=== PATIENT | female | born 1940 | race Caucasian/White ===

== ENCOUNTER 2017-01-24 21:32 | Inpatient (IN) | payer OTHER ==
[2017-01-24 21:36] VITALS: BMI 30.7
--- NOTE | 2017-01-24 22:24 | PDOC ---
History of Present Illness - General History Source: Patient, Old Records Exam Limitations: No Limitations - History of Present Illness Initial Comments: 01/24/17 22:58 The patient is a 76 year old female, with a significant past medical history of asthma, hypertension, hyperlipidemia, hypothyroidism, atrial fibrillation, and coronary artery disease s/p cardiac catheterization (2002), s/p CABG (2014), AVR , MVR, s/p MAZE procedure (2016), who presents to the emergency department with diffuse abdominal pain since earlier today. The patient rates her pain as an 8-9 /10 and reports that it is constant in nature. The patient reports that additionally feels nauseous but has not yet vomited. The patient denies fever, chills, cough. The patient denies vomiting, diarrhea, melena/bpr or any dysuria. Allergies: None reported. Past Surgical History: CABG (2014), AVR, MVR, Cardiac Cath (2002), MAZE procedure (2016), Left Lung Thoracentesis (2014), Cholecystectomy, Total Hysterectomy, Bilateral Arthroscopy & Knee Replacement. Social History: Former smoker. Denies alcohol or drug use. PCP: Dr. Luis Fernando Bernal <Ann Bruner - Last Filed: 01/25/17 01:37> <Maldonado Sheridan - Last Filed: 01/25/17 02:15> - General Chief Complaint: Nausea/Vomiting Stated Complaint: NAUSEA/VOMITING Time Seen by Provider: 01/24/17 22:10 Past History <Ann Bruner - Last Filed: 01/25/17 01:37> - Past Medical History Anemia: No Asthma: Yes Cancer: No Cardiac Disorders: Yes (Atrial fibrillation,Cardiac cath (2002), S/P MAZE procedure 1 month ago) CVA: No COPD: No CHF: No Dementia: No Diabetes: No GI Disorders: No Disorders: No HTN: Yes Hypercholesterolemia: Yes Liver Disease: No Seizures: No Thyroid Disease: Yes (Hypothyroidism) - Surgical History Abdominal Surgery: Yes (Total Hysterectomy) Appendectomy: No Cardiac Surgery: Yes (CABG 07/20/15 (double bypass) AVR, MVR, Maze procedure 1 month ago) Cholecystectomy: Yes Lung Surgery: Yes (Throcentesis/Left - 08/23/2015) Neurologic Surgery: No Orthopedic Surgery: Yes (Bilateral arthroscopy and knee replacement) - Psycho/Social/Smoking Cessation Hx Anxiety: Yes Suicidal Ideation: No Smoking History: Never smoked Have you smoked in the past 12 months: No If you are a former smoker, when did you quit?: 50 years ago Hx Alcohol Use: No Drug/Substance Use Hx: No Substance Use Type: Alcohol Hx Substance Use Treatment: No <Arvin,Boris - Last Filed: 01/25/17 02:15> - Past Medical History Allergies/Adverse Reactions: Allergies Allergy/AdvReac Type Severity Reaction Status Date / Time No Known Allergies Allergy Verified 01/24/17 21:36 Home Medications: Ambulatory Orders Albuterol Sulfate [Proair Hfa -] 1 - 2 inh PO PRN PRN 05/28/12 Cholecalciferol (Vitamin D3) [Vitamin D] 1,000 unit PO DAILY 05/28/12 Digoxin [Lanoxin -] 0.125 mg PO DAILY 05/28/12 Furosemide [Lasix -] 40 mg PO DAILY 05/28/12 Levothyroxine [Synthroid -] 175 mcg PO DAILY 05/28/12 Multivits W-Fe,Other Min/Lut [Centrum Silver Ultra Women Tab] 1 each PO DAILY Atorvastatin Calcium [Lipitor] 10 mg PO HS 06/24/13 Ranitidine HCl [Zantac] 150 mg PO BID 06/24/13 Acetaminophen [Tylenol] 650 mg PO PRN PRN 08/19/15 Aspirin [ASA -] 81 mg PO DAILY 08/19/15 Beclomethasone Dipropionate [Qvar ] 8.7 gm IH BID 08/19/15 Potassium Chloride [Klor-Con M20] 20 meq PO BID 08/19/15 Warfarin Sodium [Coumadin] 4 mg PO DAILY 08/19/15 Diltiazem Cd [Cardizem Cd -] 240 mg PO BID #60 cap.cd.24h 09/07/15 Nebivolol [Bystolic -] 5 mg PO DAILY #30 tab 09/07/15 Prednisone [Deltasone -] 40 mg PO DAILY #14 tablet 09/07/15 Review of Systems - Review of Systems Able to Perform ROS?: Yes Comments:: 01/24/17 22:48 CONSTITUTIONAL: No fever, no chills, no fatigue EYES: No visual changes ENT: No ear pain, no sore throat CARDIOVASCULAR: No chest pain, no palpitations RESPIRATORY: No cough, no SOB GI: +Nausea, abdominal pain. No vomiting, no constipation, no diarrhea GENITOURINARY: No dysuria, no frequency, no hematuria MUSKULOSKELETAL: No back pain, no joint pain, no myalgias SKIN: No rash NEURO: No headache <Ann Bruner - Last Filed: 01/25/17 01:37> *Physical Exam - Vital Signs Last Vital Signs Temp Pulse Resp BP Pulse Ox 97 F L 60 18 133/77 96 01/24/17 21:33 01/24/17 21:33 01/24/17 21:33 01/24/17 21:33 01/24/17 21:33 - Physical Exam Comments: 01/24/17 22:57 CONSTITUTIONAL: Well-appearing; well-nourished; in moderate distress. HEAD: Normocephalic; atraumatic. EYES: PERRL; EOM intact, no scleral icterus, conjunctiva are pink. ENMT: Minor abrasion to right lower lip. External appears normal; normal oropharynx. NECK: Supple; nontender; no cervical lymphadenopathy. CARD: Irregularly irregular. 2/6 systolic ejection murmur. Normal S1, S2; no rubs or gallops RESP: Normal chest excursion with respiration; breath sounds clear and equal bilaterally; no wheezes, rhonchi, or rales. ABD: Soft, non-distended; diffusely tender with pain out of proportion to physical exam findings, no palpable organomegaly, no palpable hernias. EXT: Normal ROM in all four extremities; non-tender to palpation; distal pulses intact. SKIN: Warm, dry, no rash. NEURO: No focal neurological deficiencies. <Ann Bruner - Last Filed: 01/25/17 01:37> - Vital Signs Last Vital Signs Temp Pulse Resp BP Pulse Ox 97 F L 60 18 133/77 96 01/24/17 21:33 01/24/17 21:33 01/24/17 21:33 01/24/17 21:33 01/24/17 21:33 <Maldonado Sheridan - Last Filed: 01/25/17 02:15> Heart Score/ECG Review #1 ECG reviewed & interpreted by me at: 22:56 (Vent Rate: [address] & T wave abnormality, consider inferolateral ischemia.) <[place],Ann - Last Filed: 01/25/17 01:37> ED Treatment Course - LABORATORY CBC & Chemistry Diagram: 01/24/17 23:01 01/24/17 23:01 <[place],Ann - Last Filed: 01/25/17 01:37> - LABORATORY CBC & Chemistry Diagram: 01/24/17 23:01 01/25/17 01:14 <ArvinMaldonado - Last Filed: 01/25/17 02:15> Medical Decision Making - Medical Decision Making 01/25/17 01:07 EXAM: CT/ ABDOMEN & PELVIS WITHOUT CONTRAST Reviewed By: Dr. Phani Whiting FINDINGS: Lung bases are clear. Status post aortic and mitral valve replacement. Heart is borderline enlarged. Status post cholecystectomy without biliary ductal dilatation. Normal unenhanced liver and, pancreas, spleen, adrenal glands and kidneys. The stomach and abdominal small and large bowel are normal. There is no aortic aneurysm. There is no significant retroperitoneal lymphadenopathy. The pelvic small and large bowel are normal. The appendix is normal. Status post hysterectomy. Urinary bladder is unremarkable. There is no pelvic free fluid. No discrete pelvic lymphadenopathy is identified. IMPRESSION : No localizing signs for acute pathology. Call placed to Dr. Cruz, covering for patients PCP - Dr. Bernal, at 01:30. Referred to answering service, awaiting callback. Dr. Cruz returned call at 01:34, case discussed. <Ann Bruner - Last Filed: 01/25/17 01:37> - Medical Decision Making 01/25/17 00:12 Patient is 76-year-old female with multiple comorbidities, history of atrial fibrillation Coumadin, CABG, aortic and mitral valve replacement, presents with atraumatic diffuse, poorly localized abdominal pain with associated nausea. In the ER, initial evaluation, no significant focal tenderness was appreciated, there is no guarding or rebound. EKG revealed rate-controlled atrial fibrillation with inverted T waves in 2, 3, aVF, 1, aVL, V5 and V6 which appears unchanged from previous. Chest x-ray reveals no evidence of free air under the diaphragm. CBC reveals mild leukocytosis with predominance of neutrophils. CMP reveals elevated BUN/creatinine consistent with prerenal acute renal failure. LFTs and lipase within normal limit. CT with by mouth contrast revealed no evidence of acute intra-abdominal pathology. Patient has received IV Zofran, 1 L of normal saline in 500 katty-liter aliquots. Patient has also received 20 mg of Pepcid IV and 2 mg of morphine sulfate IV. 01/25/17 02:10 Patient reassessed. Patient reports significant improvement in level of her abdominal pain. On repeat evaluation, no focal tenderness is appreciated, bowel sounds present in all 4 quadrants, there is no guarding or rebound. Repeat CMP reveals hyperglycemia of 365 which is a result of administration of D5 NS. BUN and creatinine remain unchanged. Lactic acid is noted to have increased. Repeat EKG reveals persistent T-wave inversions in 2, 3, aVF, as well as V5 and V6 which appear unchanged from previous EKG. I do not suspect mesenteric ischemia at this time given the patient is asymptomatic. Patient's presentation may have been related to transient intestinal angina which had improved with aggressive hydration. There is no indication for surgical intervention at this time. Patient will be admitted to [facility] for further evaluation and treatment. <Maldonado Sheridan - Last Filed: 01/25/17 02:15> *DC/Admit/Observation/Transfer - Attestations Scribe Attestion: 01/24/17 22:44 Documentation prepared by Ann Bruner, acting as medical operations supervisor for Maldonado Sheridan MD. <Ann Bruner - Last Filed: 01/25/17 01:37> - Discharge Dispostion Admit: Yes - Attestations Physician Attestion: 01/25/17 01:56 The documentation was prepared by the scribe under my direct supervision. I have reviewed the documentation which correctly represents the findings, medical decision-making and critical action taken by me. <Maldonado Sheridan - Last Filed: 01/25/17 02:15> Diagnosis at time of Disposition: Abdominal pain Qualifiers: Abdominal location: generalized Qualified Code(s): R10.84 - Generalized abdominal pain Acute renal failure Qualifiers: Acute renal failure type: unspecified Qualified Code(s): N17.9 - Acute kidney failure, unspecified - Discharge Dispostion Condition at time of disposition: Fair
[2017-01-24] MEDS ORDERED: ONDANSETRON 4 MG/2 ML VIAL IVPB ONE (22:46)
[2017-01-24] MEDS ORDERED: morphine CARPU-JECT 2 MG/1 ML DISP.SYRIN IVPUSH ONE (22:46)
[2017-01-24] MEDS ORDERED: SODIUM CHLORIDE 500 ML IV STA ×2 (22:46→23:28)
[2017-01-24] MEDS ORDERED: morphine CARPU-JECT 2 MG/1 ML DISP.SYRIN ONE (22:50)
[2017-01-24] MEDS ORDERED: ONDANSETRON 4 MG/2 ML VIAL ONE (22:50)
[2017-01-24 23:09] LABS: MCHC 33.6 g/dl (32.0-36.0); MEAN CELL VOLUME 86.4 fl (80-96); MEAN PLT VOLUME 8.6 fl (7.5-11.1); PLATELET COUNT 191 K/MM3 (134-434); RDW 16.5 % (11.6-15.6); WHITE BLOOD COUNT 12.4 K/mm3 (4.0-10.0)
[2017-01-24 23:22] LABS: INR 3.41 (0.82-1.09); PROTHROMBIN TIME (PATIENT) 38.5 SEC (9.98-11.88)
[2017-01-24 23:46] LABS: ALBUMIN 3.9 g/dl (3.4-5.0); ANION GAP 14 (8-16); BILIRUBIN,TOTAL 0.8 mg/dL (0.2-1.0); CALCIUM 9.4 mg/dL (8.5-10.1); CO2 28 mmol/L (21-32); CREATININE 1.6 mg/dL (0.55-1.02); GLUCOSE,RANDOM 149 mg/dL (74-106); PLATELET ESTIMATE ADEQUATE (NORMAL); SGOT/AST 25 U/L (15-37); SGPT/ALT 22 U/L (12-78); TOT PROT 8.5 g/dl (6.4-8.2)
[2017-01-24 23:49] LABS: ALK PHOS 97 U/L (45-117); TROPONIN I < 0.02 ng/ml (0.00-0.05)
[2017-01-25] MEDS ORDERED: FAMOTIDINE 20 MG/50 ML IVPB 50 ML IVPB ONE ×2 (01:17→01:19)
[2017-01-25] MEDS ORDERED: ONDANSETRON 4 MG/2 ML VIAL IVPUSH ONE (01:28)
[2017-01-25] MEDS ORDERED: ONDANSETRON 4 MG/2 ML VIAL ONE ×2 (01:31→02:42)
[2017-01-25] MEDS ORDERED: SODIUM CHLORIDE 250 ML IV STA (01:36)
[2017-01-25] MEDS ORDERED: ALBUTEROL SO4 6.7 GM HFA INHALER IH PRN (01:50)
[2017-01-25] MEDS ORDERED: ACETAMINOPHEN 325 MG TABLET (FP) PO PRN (01:50)
[2017-01-25] MEDS ORDERED: morphine CARPU-JECT 2 MG/1 ML DISP.SYRIN IVPUSH PRN (01:52)
[2017-01-25 02:01] LABS: URINE APPEARANCE SLCLOUDY; URINE BILIRUBIN NEGATIVE (NEGATIVE); URINE BLOOD NEGATIVE (NEGATIVE); URINE COLOR YELLOW; URINE GLUCOSE (UA) 3+ (NEGATIVE); URINE KETONE NEGATIVE (NEGATIVE); URINE LEUK ESTERASE 1+ (NEGATIVE); URINE NITRITE NEGATIVE (NEGATIVE); URINE PROTEIN 2+ (NEGATIVE); URINE UROBILINOGEN NEGATIVE E.U./dl (0.2-1.0)
[2017-01-25 02:03] LABS: CALCIUM 8.8 mg/dL (8.5-10.1); CREATININE 1.7 mg/dL (0.55-1.02)
[2017-01-25 02:18] LABS: URINE BACTERIA FEW /hpf (NONE SEEN); URINE HYALINE CAST 27 /lpf; URINE MUCUS RARE; URINE RBC 3 /hpf (0-3); URINE WBC 52 /hpf (3-5)
[2017-01-25] MEDS: ONDANSETRON 4 MG/2 ML VIAL IVPB PRN ×2 (02:45→12:21)
[2017-01-25] MEDS: SODIUM CHLORIDE 1,000 ML IV SCH ×3 (02:46→12:09)
[2017-01-25] MEDS ORDERED: morphine CARPU-JECT 4 MG/1 ML DISP.SYRIN IVPUSH ONE (03:44)
[2017-01-25] MEDS ORDERED: morphine CARPU-JECT 4 MG/1 ML DISP.SYRIN ONE (03:53)
[2017-01-25] MEDS ORDERED: LEVOTHYROXINE NA 100 MCG TABLET (FP) ONE (06:25)
[2017-01-25] MEDS ORDERED: LEVOTHYROXINE NA 75 MCG TABLET (FP) ONE (06:26)
[2017-01-25] MEDS: LEVOTHYROXINE 100 MCG, LEVOTHYROXINE 75 MCG PO SCH (06:40)
[2017-01-25] MEDS ORDERED: LEVOTHYROXINE NA 175 MCG TABLET PO SCH (07:00)
[2017-01-25 08:03] LABS: INR 3.99 (0.82-1.09); PROTHROMBIN TIME (PATIENT) 45.2 SEC (9.98-11.88)
[2017-01-25] MEDS: NEBIVOLOL 5 MG TABLET (FP) PO SCH (09:10)
[2017-01-25] MEDS: predniSONE 20 MG TABLET (UD) PO SCH (09:10)
[2017-01-25] MEDS: RANITIDINE HCL 150 MG TABLET (FP) PO SCH ×2 (09:10→21:18)
[2017-01-25] MEDS: CHOLECALCIFEROL (VITAMIN D3) 1,000 UNIT TABLET (FP) PO SCH (09:10)
[2017-01-25] MEDS: PANTOPRAZOLE 40 MG TABLET (FP) PO SCH (09:10)
[2017-01-25] MEDS: FUROSEMIDE 40 MG TABLET (FP) PO SCH (09:10)
[2017-01-25] MEDS: ASPIRIN 81 MG CHEWABLE TABLETS PO SCH (09:10)
[2017-01-25] MEDS: DIGOXIN 0.25 MG TABLET (FP) PO SCH (09:11)
[2017-01-25] MEDS: POTASSIUM CHLORIDE TABS 20 MEQ TABLET.ER (FP) PO SCH ×2 (09:11→21:18)
[2017-01-25] MEDS ORDERED: [UNRECOGNIZED DRUG - OTHER] IH SCH (10:00)
[2017-01-25] MEDS ORDERED: BECLOMETHASONE DIPROPIONATE 8.7 GM IH SCH (10:00)
[2017-01-25] MEDS ORDERED: [UNRECOGNIZED DRUG - OTHER] PO SCH (10:00)
--- NOTE | 2017-01-25 11:08 | HP ---
Admitting History and Physical - Admission Chief Complaint: abd pain History of Present Illness: 76 yo female, h/o heart disease, s/p heart valve surgeries, presents to hospital with discomfort in abdomen. Notes about 5 days ago had lose stool. No fevers. Did have some nausea yesterday prior to coming to hospital. No blood per rectum. Had CT (without contrast due to renal insufficiency) which was unremarkable to acute processes. Notes pain improved today, but still with nausea after taking clear liquids this morning. (No vomiting). No diarrhea now. 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 [employer] Home Medications - Allergies Allergies/Adverse Reactions: Allergies Allergy/AdvReac Type Severity Reaction Status Date / Time No Known Allergies Allergy Verified 01/24/17 21:36 - Home Medications Home Medications: Ambulatory Orders Albuterol Sulfate [Proair Hfa -] 1 - 2 inh PO PRN PRN 05/28/12 Cholecalciferol (Vitamin D3) [Vitamin D] 1,000 unit PO DAILY 05/28/12 Digoxin [Lanoxin -] 0.125 mg PO DAILY 05/28/12 Furosemide [Lasix -] 40 mg PO DAILY 05/28/12 Levothyroxine [Synthroid -] 175 mcg PO DAILY 05/28/12 Multivits W-Fe,Other Min/Lut [Centrum Silver Ultra Women Tab] 1 each PO DAILY Atorvastatin Calcium [Lipitor] 10 mg PO HS 06/24/13 Ranitidine HCl [Zantac] 150 mg PO BID 06/24/13 Acetaminophen [Tylenol] 650 mg PO PRN PRN 08/19/15 Aspirin [ASA -] 81 mg PO DAILY 08/19/15 Beclomethasone Dipropionate [Qvar ] 8.7 gm IH BID 08/19/15 Potassium Chloride [Klor-Con M20] 20 meq PO BID 08/19/15 Warfarin Sodium [Coumadin] 4 mg PO DAILY 08/19/15 Diltiazem Cd [Cardizem Cd -] 240 mg PO BID #60 cap.cd.24h 09/07/15 Nebivolol [Bystolic -] 5 mg PO DAILY #30 tab 09/07/15 Prednisone [Deltasone -] 40 mg PO DAILY #14 tablet 09/07/15 Family Disease History - Family Disease History Family Disease History: Heart Disease: Father Review of Systems - Review of Systems Constitutional: denies: Chills, Fever Eyes: reports: No Symptoms HENT: denies: Difficult Swallowing, Epistaxis, Mouth Swelling Neck: denies: Decreased ROM, Pain on Movement Cardiovascular: denies: Chest Pain, Palpitations Respiratory: denies: Cough, SOB Genitourinary: denies: Burning, Discharge, Dysuria Neurological: denies: Change in LOC Physical Examination Vital Signs: Vital Signs Temperature 97.4 F L 01/25/17 09:18 Pulse Rate 70 01/25/17 09:18 Respiratory Rate 16 01/25/17 09:18 Blood Pressure 113/66 01/25/17 09:18 O2 Sat by Pulse Oximetry (%) 98 01/25/17 04:45 Constitutional: Yes: No Distress, Calm Eyes: Yes: Conjunctiva Clear, EOM Intact, PERRL HENT: Yes: Atraumatic, Normocephalic Neck: Yes: Supple, Trachea Midline Cardiovascular: Yes: Regular Rate and Rhythm, Murmur, S1, S2 Respiratory: Yes: Regular, CTA Bilaterally. No: Rales, Rhonchi, Wheezes Gastrointestinal: Yes: Normal Bowel Sounds, Soft, Abdomen, Obese, Tenderness ( mild right lower quad pain to deep palpation). No: Distention Edema: No Neurological: Yes: Alert, Oriented Labs: Laboratory Tests 01/24/17 01/24/17 01/24/17 01:43 23:01 23:01 WBC 12.4 H D RBC 4.75 D Hgb 13.8 D Hct 41.0 D MCV 86.4 MCHC 33.6 RDW 16.5 H Plt Count 191 MPV 8.6 Neutrophils % 88.0 H Lymphocytes % 6.0 L D Monocytes % 4.0 Band Neutrophils 2.0 D Differential Comment Manual diff done Platelet Estimate Adequate Morphology Comment Slide scanned INR 3.41 H Sodium Potassium Chloride Carbon Dioxide Anion Gap BUN Creatinine Creat Clearance w eGFR POC Glucometer Random Glucose Lactic Acid Calcium Total Bilirubin AST ALT Alkaline Phosphatase Creatine Kinase Troponin I Total Protein Albumin Lipase Urine Color Yellow Urine Appearance Slcloudy Urine pH 5.0 Ur Specific [place] 1.015 Urine Protein 2+ H Urine Glucose (UA) 3+ H Urine Ketones Negative Urine Blood Negative Urine Nitrite Negative Urine Bilirubin Negative Urine Urobilinogen Negative Ur Leukocyte Esterase 1+ H Urine RBC 3 Urine WBC 52 Ur Epithelial Cells Rare Urine Bacteria Few Hyaline Casts 27 Urine Mucus Rare Blood Type Antibody Screen 01/24/17 01/24/17 01/24/17 23:01 23:01 23:01 WBC RBC Hgb Hct MCV MCHC RDW Plt Count MPV Neutrophils % Lymphocytes % Monocytes % Band Neutrophils Differential Comment Platelet Estimate Morphology Comment INR Sodium 134 L Potassium 4.3 D Chloride 92 L Carbon Dioxide 28 Anion Gap 14 BUN 41 H D Creatinine 1.6 H D Creat Clearance w eGFR 31.26 POC Glucometer Random Glucose 149 H D Lactic Acid 1.866 Calcium 9.4 Total Bilirubin 0.8 D AST 25 D ALT 22 D Alkaline Phosphatase 97 Creatine Kinase 62 Troponin I < 0.02 Total Protein 8.5 H D Albumin 3.9 D Lipase 129 Urine Color Urine Appearance Urine pH Ur Specific [place] Urine Protein Urine Glucose (UA) Urine Ketones Urine Blood Urine Nitrite Urine Bilirubin Urine Urobilinogen Ur Leukocyte Esterase Urine RBC Urine WBC Ur Epithelial Cells Urine Bacteria Hyaline Casts Urine Mucus Blood Type A POSITIVE Antibody Screen Negative 01/25/17 01/25/17 01/25/17 01:14 01:14 03:34 WBC RBC Hgb Hct MCV MCHC RDW Plt Count MPV Neutrophils % Lymphocytes % Monocytes % Band Neutrophils Differential Comment Platelet Estimate Morphology Comment INR Sodium 131 L Potassium 3.7 Chloride 91 L Carbon Dioxide 29 Anion Gap 11 BUN 42 H Creatinine 1.7 H Creat Clearance w eGFR POC Glucometer 200.47628 Random Glucose 324 H* D Lactic Acid 3.244 H* Calcium 8.8 Total Bilirubin AST ALT Alkaline Phosphatase Creatine Kinase Troponin I Total Protein Albumin Lipase Urine Color Urine Appearance Urine pH Ur Specific [place] Urine Protein Urine Glucose (UA) Urine Ketones Urine Blood Urine Nitrite Urine Bilirubin Urine Urobilinogen Ur Leukocyte Esterase Urine RBC Urine WBC Ur Epithelial Cells Urine Bacteria Hyaline Casts Urine Mucus Blood Type Antibody Screen 01/25/17 01/25/17 06:00 06:00 WBC RBC Hgb Hct MCV MCHC RDW Plt Count MPV Neutrophils % Lymphocytes % Monocytes % Band Neutrophils Differential Comment Platelet Estimate Morphology Comment INR 3.99 H Sodium Potassium Chloride Carbon Dioxide Anion Gap BUN Creatinine Creat Clearance w eGFR POC Glucometer Random Glucose Lactic Acid 1.907 Calcium Total Bilirubin AST ALT Alkaline Phosphatase Creatine Kinase Troponin I Total Protein Albumin Lipase Urine Color Urine Appearance Urine pH Ur Specific [place] Urine Protein Urine Glucose (UA) Urine Ketones Urine Blood Urine Nitrite Urine Bilirubin Urine Urobilinogen Ur Leukocyte Esterase Urine RBC Urine WBC Ur Epithelial Cells Urine Bacteria Hyaline Casts Urine Mucus Blood Type Antibody Screen Imaging - Results Cat Scan: Report Reviewed (CT abd (without IV contrast): no bowel obstruction, no acute processes noted) Problem List - Problems (1) Abdominal pain Assessment/Plan: -unclear etiology -seems improved (not much tenderness on exam now) -due to gastroenteritis? -GI eval Code(s): R10.9 - UNSPECIFIED ABDOMINAL PAIN Qualifiers: Abdominal location: generalized Qualified Code(s): R10.84 - Generalized abdominal pain (2) Atrial fibrillation Assessment/Plan: -hold AC currently as elevated -on digoxin Code(s): I48.91 - UNSPECIFIED ATRIAL FIBRILLATION Qualifiers: Atrial fibrillation type: chronic Qualified Code(s): I48.2 - Chronic atrial fibrillation (3) COPD (chronic obstructive pulmonary disease) Assessment/Plan: -cont inhaled bronchodilaters/ steroid, prednisone Code(s): J44.9 - CHRONIC OBSTRUCTIVE PULMONARY DISEASE, UNSPECIFIED Qualifiers : COPD type: unspecified COPD Qualified Code(s): J44.9 - Chronic obstructive pulmonary disease, unspecified (4) Diastolic CHF, chronic Assessment/Plan: -on lasix, metolazoe, spironolactone -not on Reid/ARB with renal insuff Code(s): I50.32 - CHRONIC DIASTOLIC (CONGESTIVE) HEART FAILURE (5) History of aortic valve replacement with bioprosthetic valve Assessment/Plan: -stable Code(s): Z95.4 - PRESENCE OF OTHER HEART-VALVE REPLACEMENT (6) History of mitral valve replacement with bioprosthetic valve Assessment/Plan: -stable Code(s): Z95.4 - PRESENCE OF OTHER HEART-VALVE REPLACEMENT (7) Hyperlipidemia Assessment/Plan: -on statin Code(s): E78.5 - HYPERLIPIDEMIA, UNSPECIFIED Qualifiers: Hyperlipidemia type: Pure hypercholesterolemia (8) Hypothyroidism Assessment/Plan: -on levothyroxine Code(s): E03.9 - HYPOTHYROIDISM, UNSPECIFIED Qualifiers: Hypothyroidism type: unspecified Qualified Code(s): E03.9 - Hypothyroidism, unspecified (9) Supratherapeutic INR Assessment/Plan: -hold coumadin for now Code(s): R79.1 - ABNORMAL COAGULATION PROFILE (10) Elevated blood sugar level Assessment/Plan: -start checking BGM with meals and bedtime (novolog sliding scale for now) Code(s): R73.9 - HYPERGLYCEMIA, UNSPECIFIED (11) Renal insufficiency Assessment/Plan: -follow Creatinine Code(s): N28.9 - DISORDER OF KIDNEY AND URETER, UNSPECIFIED
--- NOTE | 2017-01-25 11:13 | EKG ---
Test Reason : Blood Pressure : / mmHG Vent. Rate : 067 BPM Atrial Rate : 063 BPM P-R Int : 000 ms QRS Dur : 104 ms QT Int : 418 ms P-R-T Axes : 000 067 265 degrees QTc Int : 441 ms ATRIAL FIBRILLATION ABNORMAL ECG WHEN COMPARED WITH ECG OF 26-AUG-2015 13:31, QT HAS LENGTHENED Confirmed by ROSE KERR MD ([id number]) on 01/25/2017 11:12:43 AM Referred By: Confirmed By:ROSE KERR MD
[2017-01-25] MEDS: METOLAZONE 2.5 MG TABLET (FP) PO SCH (12:04)
[2017-01-25] MEDS: SPIRONOLACTONE 25 MG TABLET (FP) PO SCH (12:05)
[2017-01-25] MEDS: INSULIN SLIDING SCALE (NOVOLOG) 1 VIAL SQ SCH ×3 (12:05→21:19)
--- NOTE | 2017-01-25 14:45 | CON.GI ---
Consult Consult Specialty:: Gastroenterology Referred by:: INES SOLOMON MD - History of Present Illness Chief Complaint: ABDOMINAL PAIN History of Present Illness: 76 YEAR OLD FEMALE WITH CAD AND PROSTHETIC HEART VALVES IN THE MITRAL AND AORTIC POSITION ADMITTED AFTER HAVING 2 DAYS OF CONSTIPATION AND SUDDEN ONSET OF ABDOMINAL PAIN THEN DIARRHEA AT HOME. SHE WENT TO THE ED AND LABS REVEALED A WBC COUNT OF 12.[address] SCAN WITH ORAL CONTRAST ONLY WAS NEGATIVE. TODAY SHE FEELS MUCH BETTER. SHE HAS NO ABDOMINAL PAIN, NO DIARRHEA AND ALL HER SYMPTOMS HAVE RESOLVED. SHE DENIES ANY NAUSEA OR VOMITING, RECTAL BLEEDING OR MELENA. 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 [employer] Home Medications - Allergies Allergies/Adverse Reactions: Allergies Allergy/AdvReac Type Severity Reaction Status Date / Time No Known Allergies Allergy Verified 01/24/17 21:36 - Home Medications Home Medications: Ambulatory Orders Albuterol Sulfate [Proair Hfa -] 1 - 2 inh PO PRN PRN 05/28/12 Cholecalciferol (Vitamin D3) [Vitamin D] 1,000 unit PO DAILY 05/28/12 Digoxin [Lanoxin -] 0.125 mg PO DAILY 05/28/12 Furosemide [Lasix -] 40 mg PO DAILY 05/28/12 Levothyroxine [Synthroid -] 175 mcg PO DAILY 05/28/12 Multivits W-Fe,Other Min/Lut [Centrum Silver Ultra Women Tab] 1 each PO DAILY Atorvastatin Calcium [Lipitor] 10 mg PO HS 06/24/13 Ranitidine HCl [Zantac] 150 mg PO BID 06/24/13 Acetaminophen [Tylenol] 650 mg PO PRN PRN 08/19/15 Aspirin [ASA -] 81 mg PO DAILY 08/19/15 Beclomethasone Dipropionate [Qvar ] 8.7 gm IH BID 08/19/15 Potassium Chloride [Klor-Con M20] 20 meq PO BID 08/19/15 Warfarin Sodium [Coumadin] 4 mg PO DAILY 08/19/15 Diltiazem Cd [Cardizem Cd -] 240 mg PO BID #60 cap.cd.24h 09/07/15 Nebivolol [Bystolic -] 5 mg PO DAILY #30 tab 09/07/15 Prednisone [Deltasone -] 40 mg PO DAILY #14 tablet 09/07/15 Family Disease History - Family Disease History Family Disease History: Heart Disease: Father Review of Systems - Review of Systems Constitutional: reports: No Symptoms Eyes: reports: No Symptoms HENT: reports: No Symptoms Neck: reports: No Symptoms Cardiovascular: reports: No Symptoms Respiratory: reports: No Symptoms Gastrointestinal: reports: Abdominal Pain, Diarrhea Genitourinary: reports: No Symptoms Breasts: reports: No Symptoms Reported Musculoskeletal: reports: No Symptoms Integumentary: reports: No Symptoms Neurological: reports: No Symptoms Endocrine: reports: No Symptoms Hematology/Lymphatic: reports: No Symptoms Physical Exam-GI Vital Signs: Vital Signs Temperature 97.4 F L 01/25/17 09:18 Pulse Rate 70 01/25/17 09:18 Respiratory Rate 16 01/25/17 09:18 Blood Pressure 113/66 01/25/17 09:18 O2 Sat by Pulse Oximetry (%) 98 01/25/17 04:45 Constitutional: Yes: Well Nourished Eyes: Yes: Conjunctiva Clear HENT: Yes: Normocephalic Neck: Yes: Supple Cardiovascular: Yes: Pulse Irregular, Murmur Respiratory: Yes: WNL Gastrointestinal Inspection: Yes: WNL ...Auscultate: Yes: Normoactive Bowel Sounds ...Palpate: Yes: Soft Extremities: Yes: WNL Neurological: Yes: WNL Labs: INR, PTT INR 3.99 (0.82-1.09) H 01/25/17 06:00 Laboratory Tests 01/24/17 01/25/17 01/25/17 23:01 01:14 01:14 WBC 12.4 H D RBC 4.75 D Hgb 13.8 D Hct 41.0 D MCV 86.4 MCHC 33.6 RDW 16.5 H Plt Count 191 MPV 8.6 Neutrophils % 88.0 H Lymphocytes % 6.0 L D Monocytes % 4.0 Band Neutrophils 2.0 D Differential Comment Manual diff done Platelet Estimate Adequate Morphology Comment Slide scanned INR Sodium 131 L Potassium 3.7 Chloride 91 L Carbon Dioxide 29 Anion Gap 11 BUN 42 H Creatinine 1.7 H Random Glucose 324 H* D Lactic Acid 3.244 H* 01/25/17 01/25/17 06:00 06:00 WBC RBC Hgb Hct MCV MCHC RDW Plt Count MPV Neutrophils % Lymphocytes % Monocytes % Band Neutrophils Differential Comment Platelet Estimate Morphology Comment INR 3.99 H Sodium Potassium Chloride Carbon Dioxide Anion Gap BUN Creatinine Random Glucose Lactic Acid 1.907 Imaging - Results Cat Scan: Image Reviewed Problem List - Problems (1) Gastroenteritis Assessment/Plan: HER SYMPTOMS HAVE RESOLVED. THERE IS A POSSIBILITY THAT THIS WAS AN ISCHEMIC EVENT BUT SINCE THERE WAS NO BLEEDING AND THE CT SCAN WAS NORMAL THIS IS LOW ON THE DIFFERENTIAL DIAGNOSIS. CONTINUE SAME SLOWLY ADVANCE DIET TOLERATED. DR MERAZ WILL FOLLOW UP IN AM. Code(s): K52.9 - NONINFECTIVE GASTROENTERITIS AND COLITIS, UNSPECIFIED (2) Abdominal pain Assessment/Plan: RESOLVED Code(s): R10.9 - UNSPECIFIED ABDOMINAL PAIN Qualifiers: Abdominal location: generalized Qualified Code(s): R10.84 - Generalized abdominal pain (3) Elevated blood sugar level Code(s): R73.9 - HYPERGLYCEMIA, UNSPECIFIED (4) Atrial fibrillation Code(s): I48.91 - UNSPECIFIED ATRIAL FIBRILLATION Qualifiers: Atrial fibrillation type: chronic Qualified Code(s): I48.2 - Chronic atrial fibrillation (5) CAD (coronary artery disease), autologous vein bypass graft Code(s): I25.810 - ATHEROSCLEROSIS OF CABG W/O ANGINA PECTORIS Qualifiers: Associated angina: without angina Qualified Code(s): I25.810 - Atherosclerosis of coronary artery bypass graft(s) without angina pectoris (6) COPD (chronic obstructive pulmonary disease) Code(s): J44.9 - CHRONIC OBSTRUCTIVE PULMONARY DISEASE, UNSPECIFIED Qualifiers : COPD type: unspecified COPD Qualified Code(s): J44.9 - Chronic obstructive pulmonary disease, unspecified (7) Diastolic CHF, chronic Code(s): I50.32 - CHRONIC DIASTOLIC (CONGESTIVE) HEART FAILURE (8) History of aortic valve replacement with bioprosthetic valve Code(s): Z95.4 - PRESENCE OF OTHER HEART-VALVE REPLACEMENT
[2017-01-25] MEDS ORDERED: INSULIN (NOVOLOG) ASPART 100 UNITS/ML 10ML VIAL ONE (21:07)
[2017-01-25] MEDS: ACLIDINIUM BROMIDE 400 MCG/INH AERO.POWD IH SCH (21:18)
[2017-01-25] MEDS: ATORVASTATIN CA 10 MG TABLET (FP) PO SCH (21:18)
[2017-01-26] MEDS ORDERED: LEVOTHYROXINE NA 100 MCG TABLET (FP) ONE (05:33)
[2017-01-26] MEDS ORDERED: LEVOTHYROXINE NA 75 MCG TABLET (FP) ONE (05:33)
[2017-01-26] MEDS: INSULIN SLIDING SCALE (NOVOLOG) 1 VIAL SQ SCH ×4 (06:43→21:17)
[2017-01-26] MEDS: LEVOTHYROXINE 100 MCG, LEVOTHYROXINE 75 MCG PO SCH (06:44)
[2017-01-26 08:22] LABS: BASOPHIL 0.1 % (0-2.0); EOSINOPHIL 0.1 % (0-4.5); MCH 29.5 pg (25.7-33.7); MCHC 33.6 g/dl (32.0-36.0); MEAN CELL VOLUME 87.9 fl (80-96); MEAN PLT VOLUME 9.1 fl (7.5-11.1); NEUTROPHILS 84.5 % (42.8-82.8); PLATELET COUNT 157 K/MM3 (134-434); RDW 15.9 % (11.6-15.6); WHITE BLOOD COUNT 7.7 K/mm3 (4.0-10.0)
[2017-01-26 08:37] LABS: PROTHROMBIN TIME (PATIENT) 61.7 SEC (9.98-11.88)
[2017-01-26 08:42] LABS: ALBUMIN 3.1 g/dl (3.4-5.0); BILIRUBIN,TOTAL 0.7 mg/dL (0.2-1.0); CALCIUM 8.8 mg/dL (8.5-10.1); CREATININE 1.1 mg/dL (0.55-1.02); TOT PROT 6.7 g/dl (6.4-8.2)
[2017-01-26 09:18] LABS: INR 5.42 (0.82-1.09)
[2017-01-26] MEDS: ASPIRIN 81 MG CHEWABLE TABLETS PO SCH (10:23)
[2017-01-26] MEDS: DIGOXIN 0.25 MG TABLET (FP) PO SCH (10:23)
[2017-01-26] MEDS: POTASSIUM CHLORIDE TABS 20 MEQ TABLET.ER (FP) PO SCH ×2 (10:23→21:44)
[2017-01-26] MEDS: FUROSEMIDE 40 MG TABLET (FP) PO SCH (10:25)
[2017-01-26] MEDS: NEBIVOLOL 5 MG TABLET (FP) PO SCH (10:25)
[2017-01-26] MEDS: RANITIDINE HCL 150 MG TABLET (FP) PO SCH ×2 (10:25→21:44)
[2017-01-26] MEDS: predniSONE 20 MG TABLET (UD) PO SCH (10:25)
[2017-01-26] MEDS: SPIRONOLACTONE 25 MG TABLET (FP) PO SCH (10:25)
[2017-01-26] MEDS: CHOLECALCIFEROL (VITAMIN D3) 1,000 UNIT TABLET (FP) PO SCH (10:25)
[2017-01-26] MEDS: PANTOPRAZOLE 40 MG TABLET (FP) PO SCH (10:25)
[2017-01-26] MEDS: ACLIDINIUM BROMIDE 400 MCG/INH AERO.POWD IH SCH ×2 (10:50→21:45)
--- NOTE | 2017-01-26 11:08 | PN ---
Progress Note, Physician Chief Complaint: Ms Luanne Field says she is feeling better, says her stool is more formed. No cp , sob, n/v. - Current Medication List Current Medications: Active Medications Acetaminophen (Tylenol -) 650 mg PO Q6H PRN PRN Reason: PAIN Last Admin: 01/25/17 08:47 Dose: 650 mg Aclidinium [place] (Tudorza -) 1 puff IH BID [facility] Last Admin: 01/25/17 21:18 Dose: 1 puff Albuterol Sulfate (Ventolin Hfa Inhaler -) 2 puff IH Q4H PRN PRN Reason: ASTHMA Aspirin (Asa -) 81 mg PO DAILY [facility] Last Admin: 01/26/17 10:23 Dose: 81 mg Atorvastatin Calcium (Lipitor -) 10 mg PO HS [facility] Last Admin: 01/25/17 21:18 Dose: 10 mg Cholecalciferol (Vitamin D3 -) 1,000 unit PO DAILY [facility] Last Admin: 01/26/17 10:25 Dose: 1,000 unit Digoxin (Lanoxin -) 0.125 mg PO DAILY [facility] Last Admin: 01/26/17 10:23 Dose: 0.125 mg Diltiazem HCl (Cardizem Cd -) 240 mg PO BID [facility] Last Admin: 01/26/17 10:25 Dose: 240 mg Furosemide (Lasix -) 40 mg PO DAILY [facility] Last Admin: 01/26/17 10:25 Dose: 40 mg Sodium Chloride (Normal Saline -) 1,000 mls @ 100 mls/hr IV ASDIR [facility] Last Admin: 01/25/17 12:09 Dose: 100 mls/hr Insulin Aspart (Novolog Vial Sliding Scale -) 1 vial SQ ACHS [facility] PRN Reason: Protocol Last Admin: 01/26/17 06:43 Dose: Not Given Levothyroxine Sodium 100 mcg/ (Levothyroxine Sodium 75 mcg) 175 mcg PO DAILY@ 0700 [facility] Last Admin: 01/26/17 06:44 Dose: 175 mcg Metolazone (Zaroxolyn -) 2.5 mg PO Q2D@1000 [facility] Last Admin: 01/25/17 12:04 Dose: Not Given Morphine Sulfate (Morphine Injection -) 2 mg IVPUSH Q4H PRN PRN Reason: PAIN Nebivolol (Bystolic -) 5 mg PO DAILY [facility] Last Admin: 01/26/17 10:25 Dose: 5 mg Non-Formulary Medication (Beclomethasone Dipropionate [Qvar ]) 8.7 gm IH BID [facility] Non-Formulary Medication (Multivits W-Fe,Other Min/Lut [Centrum Silver Ultra Women Tab]) 1 each PO DAILY [facility] Ondansetron HCl (Zofran Injection) 8 mg IVPB Q6H PRN PRN Reason: NAUSEA Last Admin: 01/25/17 12:21 Dose: 8 mg Pantoprazole Sodium (Protonix -) 40 mg PO DAILY [facility] Last Admin: 01/26/17 10:25 Dose: 40 mg Potassium Chloride (K-Dur -) 20 meq PO BID [facility] Last Admin: 01/26/17 10:23 Dose: 20 meq Ranitidine HCl (Zantac -) 150 mg PO BID [facility] Last Admin: 01/26/17 10:25 Dose: 150 mg Spironolactone (Aldactone -) 25 mg PO DAILY [facility] Last Admin: 01/26/17 10:25 Dose: 25 mg - Objective Vital Signs: Vital Signs Temperature 97.7 F 01/26/17 09:00 Pulse Rate 87 01/26/17 10:23 Respiratory Rate 18 01/26/17 09:00 Blood Pressure 130/72 01/26/17 09:00 O2 Sat by Pulse Oximetry (%) 99 01/26/17 09:00 Constitutional: Yes: Well Nourished, No Distress, Calm Cardiovascular: Yes: Regular Rate and Rhythm. No: Gallop, Murmur, Rub Respiratory: Yes: Regular, CTA Bilaterally. No: Rales, Rhonchi, Wheezes Gastrointestinal: Yes: Normal Bowel Sounds, Soft. No: Distention, Tenderness Extremities: Yes: WNL Edema: No Labs: CBC, BMP 01/26/17 06:30 01/26/17 06:30 INR, PTT INR 5.42 (0.82-1.09) H* D 01/26/17 06:30 Assessment/Plan (1) Abdominal pain Assessment/Plan: -resolving -diarrhea resolved -GI following -advance diet Code(s): R10.9 - UNSPECIFIED ABDOMINAL PAIN Qualifiers: Abdominal location: generalized Qualified Code(s): R10.84 - Generalized abdominal pain (2) Atrial fibrillation Assessment/Plan: -hold AC currently as elevated -on digoxin Code(s): I48.91 - UNSPECIFIED ATRIAL FIBRILLATION Qualifiers: Atrial fibrillation type: chronic Qualified Code(s): I48.2 - Chronic atrial fibrillation (3) COPD (chronic obstructive pulmonary disease) Assessment/Plan: -cont inhaled bronchodilaters/ steroid, prednisone Code(s): J44.9 - CHRONIC OBSTRUCTIVE PULMONARY DISEASE, UNSPECIFIED Qualifiers : COPD type: unspecified COPD Qualified Code(s): J44.9 - Chronic obstructive pulmonary disease, unspecified (4) Diastolic CHF, chronic Assessment/Plan: -on lasix, metolazone, spironolactone -not on Reid/ARB with renal insuff Code(s): I50.32 - CHRONIC DIASTOLIC (CONGESTIVE) HEART FAILURE (5) History of aortic valve replacement with bioprosthetic valve Assessment/Plan: -stable Code(s): Z95.4 - PRESENCE OF OTHER HEART-VALVE REPLACEMENT (6) History of mitral valve replacement with bioprosthetic valve Assessment/Plan: -stable Code(s): Z95.4 - PRESENCE OF OTHER HEART-VALVE REPLACEMENT (7) Hyperlipidemia Assessment/Plan: -on statin Code(s): E78.5 - HYPERLIPIDEMIA, UNSPECIFIED Qualifiers: Hyperlipidemia type: Pure hypercholesterolemia (8) Hypothyroidism Assessment/Plan: -on levothyroxine Code(s): E03.9 - HYPOTHYROIDISM, UNSPECIFIED Qualifiers: Hypothyroidism type: unspecified Qualified Code(s): E03.9 - Hypothyroidism, unspecified (9) Supratherapeutic INR Assessment/Plan: -hold coumadin for now -will not give vitamin K, will improve without intervention Code(s): R79.1 - ABNORMAL COAGULATION PROFILE (10) Elevated blood sugar level Assessment/Plan: -continue SSI currently Code(s): R73.9 - HYPERGLYCEMIA, UNSPECIFIED (11) Renal insufficiency Assessment/Plan: -follow Creatinine Code(s): N28.9 - DISORDER OF KIDNEY AND URETER, UNSPECIFIED
[2017-01-26] MEDS ORDERED: PT OWN MED DRAWER 7, Y5N ONE (15:19)
[2017-01-26] MEDS ORDERED: INSULIN (NOVOLOG) ASPART 100 UNITS/ML 10ML VIAL ONE (21:04)
[2017-01-26] MEDS: ATORVASTATIN CA 10 MG TABLET (FP) PO SCH (21:44)
[2017-01-26] MEDS: SODIUM CHLORIDE 1,000 ML IV SCH (21:45)
[2017-01-27] MEDS ORDERED: INSULIN (NOVOLOG) ASPART 100 UNITS/ML 10ML VIAL ONE (06:08)
[2017-01-27] MEDS ORDERED: LEVOTHYROXINE NA 75 MCG TABLET (FP) ONE (06:09)
[2017-01-27] MEDS ORDERED: LEVOTHYROXINE NA 100 MCG TABLET (FP) ONE (06:09)
[2017-01-27] MEDS: SODIUM CHLORIDE 1,000 ML IV SCH ×2 (06:10→11:18)
[2017-01-27] MEDS: LEVOTHYROXINE 100 MCG, LEVOTHYROXINE 75 MCG PO SCH (06:13)
[2017-01-27] MEDS: INSULIN SLIDING SCALE (NOVOLOG) 1 VIAL SQ SCH ×4 (06:14→22:17)
[2017-01-27 08:19] LABS: BASOPHIL 0.7 % (0-2.0); EOSINOPHIL 1.7 % (0-4.5); MCH 29.5 pg (25.7-33.7); MCHC 33.6 g/dl (32.0-36.0); MEAN PLT VOLUME 9.2 fl (7.5-11.1); NEUTROPHILS 64.5 % (42.8-82.8); PLATELET COUNT 144 K/MM3 (134-434); RDW 16.4 % (11.6-15.6); WHITE BLOOD COUNT 6.8 K/mm3 (4.0-10.0)
[2017-01-27 08:22] LABS: INR 4.41 (0.82-1.09)
[2017-01-27 08:29] LABS: CALCIUM 8.5 mg/dL (8.5-10.1); CREATININE 1.1 mg/dL (0.55-1.02); MAGNESIUM 1.6 mg/dL (1.8-2.4); PHOSPHOROUS 1.9 mg/dL (2.5-4.9)
[2017-01-27] MEDS ORDERED: PT OWN MED DRAWER 7, Y5N ONE ×2 (10:03→21:51)
[2017-01-27] MEDS: NEBIVOLOL 5 MG TABLET (FP) PO SCH (10:05)
[2017-01-27] MEDS: SPIRONOLACTONE 25 MG TABLET (FP) PO SCH (10:05)
[2017-01-27] MEDS: CHOLECALCIFEROL (VITAMIN D3) 1,000 UNIT TABLET (FP) PO SCH (10:05)
[2017-01-27] MEDS: PANTOPRAZOLE 40 MG TABLET (FP) PO SCH (10:05)
[2017-01-27] MEDS: POTASSIUM CHLORIDE TABS 20 MEQ TABLET.ER (FP) PO SCH ×2 (10:05→22:14)
[2017-01-27] MEDS: RANITIDINE HCL 150 MG TABLET (FP) PO SCH (10:05)
[2017-01-27] MEDS: ACLIDINIUM BROMIDE 400 MCG/INH AERO.POWD IH SCH ×2 (10:06→22:14)
[2017-01-27] MEDS: DIGOXIN 0.25 MG TABLET (FP) PO SCH (10:06)
[2017-01-27] MEDS: ASPIRIN 81 MG CHEWABLE TABLETS PO SCH (10:06)
[2017-01-27] MEDS: METOLAZONE 2.5 MG TABLET (FP) PO SCH (10:07)
[2017-01-27] MEDS: FUROSEMIDE 40 MG TABLET (FP) PO SCH (11:17)
--- NOTE | 2017-01-27 14:28 | PN ---
GI Progress Note Subjective: No abdominal pain No N/V No BM today - Objective Vital Signs: Vital Signs Temperature 98.1 F 01/27/17 13:53 Pulse Rate 69 01/27/17 13:53 Respiratory Rate 20 01/27/17 13:53 Blood Pressure 108/63 01/27/17 13:53 O2 Sat by Pulse Oximetry (%) 99 01/26/17 21:30 Constitutional: Calm Eyes: No: Sclera Icterus Cardiovascular: Yes: Regular Rate and Rhythm Gastrointestinal Inspection: No: Distention ...Auscultate: Yes: Normoactive Bowel Sounds ...Palpate: No: Tenderness Edema: Yes (b/l LE w/ stasis) Neurological: Yes: Alert, Oriented Labs: CBC, BMP 01/27/17 06:00 01/27/17 06:00 INR, PTT INR 4.41 (0.82-1.09) H* 01/27/17 06:00 Problem List - Problems (1) Abdominal pain Assessment/Plan: Abdominal pain resolved MiraLAx 17g daily Patient with supratherapeutic INR. Decrease dose of ranitidine to once daily Code(s): R10.9 - UNSPECIFIED ABDOMINAL PAIN Qualifiers: Abdominal location: generalized Qualified Code(s): R10.84 - Generalized abdominal pain
--- NOTE | 2017-01-27 15:18 | PN ---
Progress Note, Physician Chief Complaint: Ms Luanne Field says she is doing well, ready for a regular diet. Currently without bowel movement. No cp, sob, n/v. - Current Medication List Current Medications: Active Medications Acetaminophen (Tylenol -) 650 mg PO Q6H PRN PRN Reason: PAIN Last Admin: 01/25/17 08:47 Dose: 650 mg Aclidinium [place] (Tudorza -) 1 puff IH BID [facility] Last Admin: 01/27/17 10:06 Dose: 1 puff Albuterol Sulfate (Ventolin Hfa Inhaler -) 2 puff IH Q4H PRN PRN Reason: ASTHMA Aspirin (Asa -) 81 mg PO DAILY [facility] Last Admin: 01/27/17 10:06 Dose: 81 mg Atorvastatin Calcium (Lipitor -) 10 mg PO HS [facility] Last Admin: 01/26/17 21:44 Dose: 10 mg Cholecalciferol (Vitamin D3 -) 1,000 unit PO DAILY [facility] Last Admin: 01/27/17 10:05 Dose: 1,000 unit Digoxin (Lanoxin -) 0.125 mg PO DAILY [facility] Last Admin: 01/27/17 10:06 Dose: 0.125 mg Diltiazem HCl (Cardizem Cd -) 240 mg PO BID [facility] Last Admin: 01/27/17 10:06 Dose: 240 mg Furosemide (Lasix -) 40 mg PO DAILY [facility] Last Admin: 01/27/17 11:17 Dose: 40 mg Sodium Chloride (Normal Saline -) 1,000 mls @ 100 mls/hr IV ASDIR [facility] Last Admin: 01/27/17 11:18 Dose: 100 mls/hr Insulin Aspart (Novolog Vial Sliding Scale -) 1 vial SQ ACHS [facility] PRN Reason: Protocol Last Admin: 01/27/17 12:11 Dose: Not Given Levothyroxine Sodium 100 mcg/ (Levothyroxine Sodium 75 mcg) 175 mcg PO DAILY@ 0700 [facility] Last Admin: 01/27/17 06:13 Dose: 175 mcg Metolazone (Zaroxolyn -) 2.5 mg PO Q2D@1000 [facility] Last Admin: 01/27/17 10:07 Dose: 2.5 mg Morphine Sulfate (Morphine Injection -) 2 mg IVPUSH Q4H PRN PRN Reason: PAIN Nebivolol (Bystolic -) 5 mg PO DAILY [facility] Last Admin: 01/27/17 10:05 Dose: 5 mg Non-Formulary Medication (Beclomethasone Dipropionate [Qvar ]) 8.7 gm IH BID [facility] Non-Formulary Medication (Multivits W-Fe,Other Min/Lut [Centrum Silver Ultra Women Tab]) 1 each PO DAILY [facility] Ondansetron HCl (Zofran Injection) 8 mg IVPB Q6H PRN PRN Reason: NAUSEA Last Admin: 01/25/17 12:21 Dose: 8 mg Polyethylene Glycol (Miralax (For Daily Use) -) 17 gm PO DAILY [facility] Potassium Chloride (K-Dur -) 20 meq PO BID [facility] Last Admin: 01/27/17 10:05 Dose: 20 meq Ranitidine HCl (Zantac -) 150 mg PO DAILY [facility] Spironolactone (Aldactone -) 25 mg PO DAILY [facility] Last Admin: 01/27/17 10:05 Dose: 25 mg - Objective Vital Signs: Vital Signs Temperature 98.1 F 01/27/17 13:53 Pulse Rate 69 01/27/17 13:53 Respiratory Rate 20 01/27/17 13:53 Blood Pressure 108/63 01/27/17 13:53 O2 Sat by Pulse Oximetry (%) 99 01/26/17 21:30 Constitutional: Yes: Well Nourished, No Distress, Calm Cardiovascular: Yes: Regular Rate and Rhythm. No: Gallop, Murmur, Rub Respiratory: Yes: Regular, CTA Bilaterally. No: Rales, Rhonchi, Wheezes Gastrointestinal: Yes: Normal Bowel Sounds, Soft. No: Distention, Tenderness Extremities: Yes: WNL Edema: No Labs: CBC, BMP 01/27/17 06:00 01/27/17 06:00 INR, PTT INR 4.41 (0.82-1.09) H* 01/27/17 06:00 Assessment/Plan (1) Abdominal pain Assessment/Plan: -appreciate GI assistance -advance to diabetic diet -monitor Code(s): R10.9 - UNSPECIFIED ABDOMINAL PAIN Qualifiers: Abdominal location: generalized Qualified Code(s): R10.84 - Generalized abdominal pain (2) Atrial fibrillation Assessment/Plan: -hold AC currently as elevated, improved from yesterday -on digoxin Code(s): I48.91 - UNSPECIFIED ATRIAL FIBRILLATION Qualifiers: Atrial fibrillation type: chronic Qualified Code(s): I48.2 - Chronic atrial fibrillation (3) COPD (chronic obstructive pulmonary disease) Assessment/Plan: -cont inhaled bronchodilaters -patient not on steroids, discontinued Code(s): J44.9 - CHRONIC OBSTRUCTIVE PULMONARY DISEASE, UNSPECIFIED Qualifiers : COPD type: unspecified COPD Qualified Code(s): J44.9 - Chronic obstructive pulmonary disease, unspecified (4) Diastolic CHF, chronic Assessment/Plan: -on lasix, metolazone, spironolactone -not on Reid/ARB with renal insuff Code(s): I50.32 - CHRONIC DIASTOLIC (CONGESTIVE) HEART FAILURE (5) History of aortic valve replacement with bioprosthetic valve Assessment/Plan: -stable Code(s): Z95.4 - PRESENCE OF OTHER HEART-VALVE REPLACEMENT (6) History of mitral valve replacement with bioprosthetic valve Assessment/Plan: -stable Code(s): Z95.4 - PRESENCE OF OTHER HEART-VALVE REPLACEMENT (7) Hyperlipidemia Assessment/Plan: -on statin Code(s): E78.5 - HYPERLIPIDEMIA, UNSPECIFIED Qualifiers: Hyperlipidemia type: Pure hypercholesterolemia (8) Hypothyroidism Assessment/Plan: -on levothyroxine Code(s): E03.9 - HYPOTHYROIDISM, UNSPECIFIED Qualifiers: Hypothyroidism type: unspecified Qualified Code(s): E03.9 - Hypothyroidism, unspecified (9) Supratherapeutic INR Assessment/Plan: -hold coumadin for now -improving -recheck tomorrow Code(s): R79.1 - ABNORMAL COAGULATION PROFILE (10) Elevated blood sugar level Assessment/Plan: -continue SSI currently Code(s): R73.9 - HYPERGLYCEMIA, UNSPECIFIED (11) Renal insufficiency Assessment/Plan: -stable Code(s): N28.9 - DISORDER OF KIDNEY AND URETER, UNSPECIFIED
[2017-01-27] MEDS: POLYETHYLENE GLYCOL 3350 119 GM BTL PO SCH (15:23)
[2017-01-27] MEDS: ATORVASTATIN CA 10 MG TABLET (FP) PO SCH (22:13)
[2017-01-28] MEDS ORDERED: LEVOTHYROXINE NA 100 MCG TABLET (FP) ONE (05:46)
[2017-01-28] MEDS ORDERED: LEVOTHYROXINE NA 75 MCG TABLET (FP) ONE (05:47)
[2017-01-28] MEDS: LEVOTHYROXINE 100 MCG, LEVOTHYROXINE 75 MCG PO SCH (06:29)
[2017-01-28] MEDS: INSULIN SLIDING SCALE (NOVOLOG) 1 VIAL SQ SCH ×2 (06:33→11:31)
[2017-01-28 07:37] LABS: EOSINOPHIL 2.9 % (0-4.5); MCH 29.7 pg (25.7-33.7); MCHC 33.8 g/dl (32.0-36.0); MEAN CELL VOLUME 87.7 fl (80-96); MEAN PLT VOLUME 9.2 fl (7.5-11.1); NEUTROPHILS 65.4 % (42.8-82.8); PLATELET COUNT 134 K/MM3 (134-434); RDW 16.2 % (11.6-15.6); WHITE BLOOD COUNT 7.5 K/mm3 (4.0-10.0)
[2017-01-28 07:52] LABS: INR 3.17 (0.82-1.09); PROTHROMBIN TIME (PATIENT) 35.7 SEC (9.98-11.88)
[2017-01-28 09:27] LABS: CALCIUM 8.6 mg/dL (8.5-10.1)
[2017-01-28 09:31] LABS: CREATININE 1.1 mg/dL (0.55-1.02); MAGNESIUM 1.6 mg/dL (1.8-2.4); PHOSPHOROUS 2.3 mg/dL (2.5-4.9)
[2017-01-28] MEDS ORDERED: RANITIDINE HCL 150 MG TABLET (FP) PO SCH (10:00)
[2017-01-28] MEDS ORDERED: PT OWN MED DRAWER 7, Y5N ONE (10:29)
[2017-01-28] MEDS: CHOLECALCIFEROL (VITAMIN D3) 1,000 UNIT TABLET (FP) PO SCH (10:35)
[2017-01-28] MEDS: ASPIRIN 81 MG CHEWABLE TABLETS PO SCH (10:35)
[2017-01-28] MEDS: DIGOXIN 0.25 MG TABLET (FP) PO SCH (10:35)
[2017-01-28] MEDS: FUROSEMIDE 40 MG TABLET (FP) PO SCH (10:36)
[2017-01-28] MEDS: ACLIDINIUM BROMIDE 400 MCG/INH AERO.POWD IH SCH (10:36)
[2017-01-28] MEDS: SPIRONOLACTONE 25 MG TABLET (FP) PO SCH (10:36)
[2017-01-28] MEDS: POTASSIUM CHLORIDE TABS 20 MEQ TABLET.ER (FP) PO SCH (10:36)
[2017-01-28] MEDS: POLYETHYLENE GLYCOL 3350 119 GM BTL PO SCH (10:36)
[2017-01-28] MEDS: NEBIVOLOL 5 MG TABLET (FP) PO SCH (10:36)
--- NOTE | 2017-01-28 13:25 | DS ---
Physical Examination Vital Signs: Vital Signs Temperature 98.0 F 01/28/17 10:24 Pulse Rate 67 01/28/17 10:35 Respiratory Rate 18 01/28/17 10:24 Blood Pressure 124/61 01/28/17 10:24 O2 Sat by Pulse Oximetry (%) 99 01/27/17 21:00 Constitutional: Yes: Well Nourished, No Distress, Calm Cardiovascular: Yes: Pulse Irregular. No: Gallop, Murmur, Rub Respiratory: Yes: Regular, CTA Bilaterally. No: Rales, Rhonchi, Wheezes Gastrointestinal: Yes: Normal Bowel Sounds, Soft. No: Distention, Tenderness Extremities: Yes: WNL Edema: No Labs: CBC, BMP 01/28/17 06:00 01/28/17 06:00 Discharge Summary Reason For Visit: ACUTE RENAL FAILURE Current Active Problems Abdominal pain (Acute) Acute renal failure (Acute) Elevated blood sugar level (Acute) Gastroenteritis (Acute) Renal insufficiency (Acute) Hospital Course: (1) Abdominal pain Code(s): R10.9 - UNSPECIFIED ABDOMINAL PAIN Qualifiers: Abdominal location: generalized Qualified Code(s): R10.84 - Generalized abdominal pain (2) Atrial fibrillation Code(s): I48.91 - UNSPECIFIED ATRIAL FIBRILLATION Qualifiers: Atrial fibrillation type: chronic Qualified Code(s): I48.2 - Chronic atrial fibrillation (3) COPD (chronic obstructive pulmonary disease) Code(s): J44.9 - CHRONIC OBSTRUCTIVE PULMONARY DISEASE, UNSPECIFIED Qualifiers : COPD type: unspecified COPD Qualified Code(s): J44.9 - Chronic obstructive pulmonary disease, unspecified (4) Diastolic CHF, chronic Code(s): I50.32 - CHRONIC DIASTOLIC (CONGESTIVE) HEART FAILURE (5) History of aortic valve replacement with bioprosthetic valve Code(s): Z95.4 - PRESENCE OF OTHER HEART-VALVE REPLACEMENT (6) History of mitral valve replacement with bioprosthetic valve Code(s): Z95.4 - PRESENCE OF OTHER HEART-VALVE REPLACEMENT (7) Hyperlipidemia Code(s): E78.5 - HYPERLIPIDEMIA, UNSPECIFIED Qualifiers: Hyperlipidemia type: Pure hypercholesterolemia (8) Hypothyroidism Code(s): E03.9 - HYPOTHYROIDISM, UNSPECIFIED Qualifiers: Hypothyroidism type: unspecified Qualified Code(s): E03.9 - Hypothyroidism, unspecified (9) Supratherapeutic INR Code(s): R79.1 - ABNORMAL COAGULATION PROFILE (10) Elevated blood sugar level Code(s): R73.9 - HYPERGLYCEMIA, UNSPECIFIED (11) Renal insufficiency Code(s): N28.9 - DISORDER OF KIDNEY AND URETER, UNSPECIFIED Ms Luanne Field is a pleasant 76 year old female who came in with gastroenteritis and diarrhea. She was admitted to the hospital. She was seen by GI and stool studies were sent, these were negative. She was placed on a clear liquid diet and advanced as tolerated, she tolerated a solid diet for 24 hours without difficulty. She was supratherapeutic on her INR, this was secondary to decreased po intake. Her coumadin was held and it improved. She is to restart this tomorrow. Currently she is doing well and is safe for discharge home. 35 minutes spent in preparation of this discharge including discussion of proper diet and follow up with patient. Condition: Good - Instructions Diet, Activity, Other Instructions: resume previous diet and activity Referrals: Luis Fernando Bernal MD [Staff Physician] - Disposition: HOME - Home Medications Comprehensive Discharge Medication List: Ambulatory Orders Albuterol Sulfate [Proair Hfa -] 1 - 2 inh PO PRN PRN 05/28/12 Cholecalciferol (Vitamin D3) [Vitamin D] 1,000 unit PO DAILY 05/28/12 Digoxin [Lanoxin -] 0.125 mg PO DAILY 05/28/12 Furosemide [Lasix -] 40 mg PO DAILY 05/28/12 Levothyroxine [Synthroid -] 175 mcg PO DAILY 05/28/12 Multivits W-Fe,Other Min/Lut [Centrum Silver Ultra Women Tab] 1 each PO DAILY Atorvastatin Calcium [Lipitor] 10 mg PO HS 06/24/13 Ranitidine HCl [Zantac] 150 mg PO BID 06/24/13 Acetaminophen [Tylenol] 650 mg PO PRN PRN 08/19/15 Aspirin [ASA -] 81 mg PO DAILY 08/19/15 Beclomethasone Dipropionate [Qvar ] 8.7 gm IH BID 08/19/15 Potassium Chloride [Klor-Con M20] 20 meq PO BID 08/19/15 Warfarin Sodium [Coumadin] 4 mg PO DAILY 08/19/15 Diltiazem Cd [Cardizem Cd -] 240 mg PO BID #60 cap.cd.24h 09/07/15 Nebivolol [Bystolic -] 5 mg PO DAILY #30 tab 09/07/15 Aclidinium [place] [Tudorza -] 1 puff IH BID #1 inhaler 01/28/17 Metolazone [Zaroxolyn -] 2.5 mg PO Q2D@1000 #30 tablet 01/28/17 Spironolactone [Aldactone -] 25 mg PO DAILY #30 tablet 01/28/17
[2017-01-28 14:07] VITALS: BP 130/67; PULSE 68; TEMP 97.7
--- NOTE | 2017-01-30 10:16 | EKG ---
Test Reason : Blood Pressure : / mmHG Vent. Rate : 060 BPM Atrial Rate : 075 BPM P-R Int : 000 ms QRS Dur : 116 ms QT Int : 428 ms P-R-T Axes : 000 084 -87 degrees QTc Int : 428 ms ATRIAL FIBRILLATION ABNORMAL ECG WHEN COMPARED WITH ECG OF 24-JAN-2017 22:56, NO SIGNIFICANT CHANGE WAS FOUND Confirmed by KATJA CHAVEZ MD ([id number]) on 01/30/2017 10:16:05 AM Referred By: Confirmed By:KATJA CHAVEZ MD
== END 2017-01-28 15:11 | disposition home or self-care (01) | DRG 392 ==
LOC: JER 21:32 → JERBED 01-25 02:15 → J7W 01-25 04:05
PROVIDERS: ADMIT Specialist; ATTEND Specialist
DX: K52.9 Noninfective gastroenteritis and colitis, unspecified (principal); N17.9 Acute kidney failure, unspecified; I50.32 Chronic diastolic (congestive) heart failure; E78.5 Hyperlipidemia, unspecified; E03.9 Hypothyroidism, unspecified; I48.91 Unspecified atrial fibrillation; I25.10 Atherosclerotic heart disease of native coronary artery without angina pectoris; Z95.1 Presence of aortocoronary bypass graft; Z95.2 Presence of prosthetic heart valve; J45.909 Unspecified asthma, uncomplicated; Z87.891 Personal history of nicotine dependence; Z79.01 Long term (current) use of anticoagulants; I11.0 Hypertensive heart disease with heart failure; J44.9 Chronic obstructive pulmonary disease, unspecified; R79.1 Abnormal coagulation profile
CPT/HCPCS: 36415; 71010-TC; 74176-TC; 80048; 80053; 81003; 81015; 82550; 83605; 83690; 83735; 84100; 84484; 85025; 85610; 86850; 86900; 86901; 87045; 87046; 87086; 93005; 93010; 99284-25; Q9967

== ENCOUNTER 2019-05-19 17:32 | Inpatient (IN) | payer OTHER ==
--- NOTE | 2019-05-19 17:44 | PDOC ---
Rapid Medical Evaluation Time Seen by Provider: 05/19/19 17:42 Medical Evaluation: Allergies Allergy/AdvReac Type Severity Reaction Status Date / Time No Known Allergies Allergy Verified 01/24/17 21:36 05/19/19 17:42 I have performed a brief in-person evaluation of this patient. The patient presents with a chief complaint of: right hip pain s/p trip and fall. Denies Head trauma Pertinent physical exam findings: Ambulatory. right hip swelling and TTP over trochanter. Right shoulder TTP. FAROM. I have ordered the following: labs, xrays The patient will proceed to the ED for further evaluation. 05/19/19 17:44 Discharge Disposition - Diagnosis Fall - Referrals - Patient Instructions - Post Discharge Activity
[2019-05-19 17:45] VITALS: BMI 29.8
[2019-05-19 19:00] LABS: INR 2.29 (0.83-1.09); PROTHROMBIN TIME (PATIENT) 27.3 SEC (9.7-13.0)
--- NOTE | 2019-05-19 19:31 | PDOC ---
History of Present Illness - General History Source: Patient Exam Limitations: No Limitations <SandipCyndee thompson - Last Filed: 05/20/19 01:34> <Elisabeth Caballero - Last Filed: 05/24/19 20:13> - General Chief Complaint: Injury Stated Complaint: FALL Time Seen by Provider: 05/19/19 17:42 Past History - Past Medical History Anemia: No Asthma: Yes Cancer: No Cardiac Disorders: Yes (Atrial fibrillation,Cardiac cath (2002), S/P MAZE procedure 1 month ago) CVA: No COPD: No CHF: No Dementia: No Diabetes: No GI Disorders: No Disorders: No HTN: Yes Hypercholesterolemia: Yes Liver Disease: No Seizures: No Thyroid Disease: Yes (Hypothyroidism) - Surgical History Abdominal Surgery: Yes (Total Hysterectomy) Appendectomy: No Cardiac Surgery: Yes (CABG 07/20/15 (double bypass) AVR, MVR, Maze procedure 1 month ago) Cholecystectomy: Yes Lung Surgery: Yes (Throcentesis/Left - 08/23/2015) Neurologic Surgery: No Orthopedic Surgery: Yes (Bilateral arthroscopy and knee replacement) - Suicide/Smoking/Psychosocial Hx Smoking History: Never smoked Have you smoked in the past 12 months: No If you are a former smoker, when did you quit?: 50 years ago Information on smoking cessation initiated: No Hx Alcohol Use: No Drug/Substance Use Hx: No Substance Use Type: Alcohol Hx Substance Use Treatment: No <Cyndee Oropeza - Last Filed: 05/20/19 01:34> <Elisabeth Caballero - Last Filed: 05/24/19 20:13> - Past Medical History Allergies/Adverse Reactions: Allergies Allergy/AdvReac Type Severity Reaction Status Date / Time No Known Allergies Allergy Verified 05/19/19 17:45 Home Medications: Ambulatory Orders Albuterol Sulfate [Proair Hfa -] 1 - 2 inh PO PRN PRN 05/28/12 Cholecalciferol (Vitamin D3) [Vitamin D] 1,000 unit PO DAILY 05/28/12 Digoxin [Lanoxin -] 0.125 mg PO WEEKLY 05/28/12 Furosemide [Lasix -] 40 mg PO DAILY 05/28/12 Levothyroxine [Synthroid -] 175 mcg PO WEEKLY 05/28/12 Multivits W-Fe,Other Min/Lut [Centrum Silver Ultra Women Tab] 1 each PO DAILY Atorvastatin Calcium [Lipitor] 10 mg PO HS 06/24/13 Ranitidine HCl [Zantac] 150 mg PO BID 06/24/13 Acetaminophen [Tylenol] 650 mg PO PRN PRN 08/19/15 Aspirin [ASA -] 81 mg PO DAILY 08/19/15 Beclomethasone Dipropionate [Qvar ] 8.7 gm IH BID 08/19/15 Potassium Chloride [Klor-Con M20] 20 meq PO BID 08/19/15 Warfarin Sodium [Coumadin] 4 mg PO DAILY 08/19/15 Diltiazem Cd [Cardizem Cd -] 240 mg PO BID #60 cap.cd.24h 09/07/15 Aclidinium [place] [Tudorza -] 1 puff IH BID #1 inhaler 01/28/17 Metolazone [Zaroxolyn -] 2.5 mg PO Q2D@1000 #30 tablet 01/28/17 Spironolactone [Aldactone -] 25 mg PO DAILY #30 tablet 01/28/17 Carvedilol 6.25 mg PO BID 05/20/19 Nitroglycerin Sublingual [Nitrostat -] 0.6 mg SL DAILY PRN 05/20/19 *Physical Exam - Vital Signs Last Vital Signs Temp Pulse Resp BP Pulse Ox 97.6 F 120 H 19 127/62 96 05/19/19 17:43 05/19/19 17:43 05/19/19 17:43 05/19/19 17:43 05/19/19 17:43 - Physical Exam General Appearance: No: Apparent Distress Neck: positive: Supple. negative: Tender midline Respiratory/Chest: positive: Lungs Clear, Normal Breath Sounds. negative: Respiratory Distress Cardiovascular: positive: Regular Rate, S1, S2, Irregularly Irregular. negative : Murmur Gastrointestinal/Abdominal: positive: Normal Bowel Sounds, Soft. negative: Tender, Distended, Guarding, Rebound Extremity: positive: Other (+L hip ecchymosis, FROM of L hip, normal gait) Neurologic: positive: Fully Oriented, Alert, Normal Mood/Affect <Cyndee Oropeza - Last Filed: 05/20/19 01:34> - Vital Signs Last Vital Signs Temp Pulse Resp BP Pulse Ox 97.6 F 120 H 19 127/62 96 05/19/19 17:43 05/19/19 17:43 05/19/19 17:43 05/19/19 17:43 05/19/19 17:43 <Elisabeth Caballero - Last Filed: 05/24/19 20:13> ED Treatment Course - LABORATORY CBC & Chemistry Diagram: 05/19/19 23:03 05/19/19 23:03 - ADDITIONAL ORDERS Additional order review: Laboratory Results 05/19/19 18:34 PT with INR 27.30 H INR 2.29 H <SandipCyndee - Last Filed: 05/20/19 01:34> - LABORATORY CBC & Chemistry Diagram: 05/24/19 05:35 05/24/19 05:35 - ADDITIONAL ORDERS Additional order review: Laboratory Results 05/19/19 18:34 PT with INR 27.30 H INR 2.29 H <Elisabeth Caballero - Last Filed: 05/24/19 20:13> Medical Decision Making - Medical Decision Making 78 y/o F with multiple medical comorbiditie including AFIB s/p MAZE (on Coumadin ), valve repair, CAD, CHF, HTN, Hyperlipdemia, hypothyroidism, MVR, AVR, CABG 2014, cath 2002 presented s/p mechanical fall today. Patient was stepping out of car to clean something on window when she tripped over curb and fell on her R hip. Is c/o R hip pain. Patient able to ambulate and drove to ER herself. Denies other complaints at the time. R hip bruise noted INR within normal range R hip xray with arthritic changes, no sign of fracture or dislocation HR noted to be 120 EKG done showed Afib with RVR at 117 Patient denies CP, SOB; felt otherwise fine Patient was due for her PM dose of her Afib meds After giving meds, repeat EKG showed Afib at 82 bpm, ST segment depression inferiolateral leads (somewhat similar finding noted on prior EKG) Later when patient was being reassessed, mentioned feeling lightheaded FS checked and normal Given history, plan to check labs (consider ACS, infection, electrolyte abnormalities) 05/19/19 19:30 Abnormal Lab Results 05/19/19 05/19/19 05/19/19 18:34 23:03 23:03 WBC 17.4 H Absolute Neuts (auto) 15.0 H Neutrophils % 86.2 H D Lymphocytes % 6.5 L D PT with INR 27.30 H INR 2.29 H BUN 44.8 H Creatinine 1.7 H Random Glucose 139 H Labs notable for leukocytosis of 17.4 Also with WILTON compared to prior labs; likely pre-renal No hx of heart failure; no prior echo for evaluation Patient had denied URI symptoms before Urine still pending (patient is currently asleep) Ordered for NS bolus 500 cc Will admit for further evaluation Awaiting to hear back from admitting 05/20/19 01:24 <Cyndee Oropeza - Last Filed: 05/20/19 01:34> - Medical Decision Making The patient was seen and evaluated in conjunction with midlevel provider under my direct supervision, ancillary studies were reviewed. I agree with the plan as outlined WILFRED Oropeza. HPI, workup/dispo as outlined. VS reviewed, tachycardic EKG with Afib with RVR at 117bpm with some ST depressions diffusely, small elevation in AVR. could be rate related will rate control as she is due for here evening dose of coumadin/diltiazem for her chronic Afib xray hips without acute fx/dislocation, arthritic/degenerative changes noted able to ambulate, ROM maintained, saw pt go to the bathroom and walk around vertical analgesia trial. home meds reassess repeat EKG c/o dizziness, when getting up. basic labs, trop. anticipate admission 05/19/19 19:59 05/24/19 20:12 <Elisabeth Caballero - Last Filed: 05/24/19 20:13> *DC/Admit/Observation/Transfer - Discharge Dispostion Decision to Admit order: Yes <Cyndee Oropeza - Last Filed: 05/20/19 01:34> <Elisabeth Caballero - Last Filed: 05/24/19 20:13> Diagnosis at time of Disposition: Fall Qualifiers: Encounter type: initial encounter Qualified Code(s): W19.XXXA - Unspecified fall, initial encounter Acute renal failure Qualifiers: Acute renal failure type: unspecified Qualified Code(s): N17.9 - Acute kidney failure, unspecified - Discharge Dispostion Condition at time of disposition: Stable
[2019-05-19] MEDS ORDERED: CARVEDILOL 6.25 MG TABLET (FP) PO ONE (19:46)
[2019-05-19] MEDS ORDERED: dilTIAZem HCL 60 MG TABLET (FP) PO ONE (19:46)
[2019-05-19] MEDS ORDERED: WARFARIN NA 2 MG TABLET (UD) PO ONE (19:46)
[2019-05-19] MEDS ORDERED: CARVEDILOL 3.125 MG TABLET (FP) ONE (19:59)
[2019-05-19] MEDS ORDERED: WARFARIN NA 1 MG TABLET (FP) ONE (19:59)
[2019-05-19] MEDS ORDERED: dilTIAZem HCL 60 MG TABLET (FP) ONE (20:00)
[2019-05-19] MEDS ORDERED: ACETAMINOPHEN 325 MG TABLET (FP) PO ONE (20:38)
[2019-05-19] MEDS ORDERED: ACETAMINOPHEN 325 MG TABLET (FP) ONE (20:41)
[2019-05-19 23:27] LABS: BASO % 0.5 % (0-2.0); EOS % 0.8 % (0-4.5); HEMOGLOBIN 11.7 GM/dL (10.7-15.3); LYMPH % 6.5 % (8-40); MCH 30.2 pg (25.7-33.7); MCHC 33.4 g/dl (32.0-36.0); MEAN CELL VOLUME 90.2 fl (80-96); MEAN PLT VOLUME 8.8 fl (7.5-11.1); NEUT % 86.2 % (42.8-82.8); PLATELET COUNT 194 K/MM3 (134-434); RBC 3.88 M/mm3 (3.60-5.2); RDW 14.7 % (11.6-15.6); WHITE BLOOD COUNT 17.4 K/mm3 (4.0-10.0)
[2019-05-19 23:42] LABS: ALBUMIN 3.5 g/dl (3.4-5.0); BILIRUBIN,TOTAL 0.6 mg/dL (0.2-1); BLOOD UREA NITROGEN 44.8 mg/dL (7-18); CALCIUM 8.8 mg/dL (8.5-10.1); CREATININE 1.7 mg/dL (0.55-1.3); POTASSIUM 4.6 mmol/L (3.5-5.1); TOT PROT 7.5 g/dl (6.4-8.2)
[2019-05-20] MEDS ORDERED: SODIUM CHLORIDE 500 ML IV STA (00:30)
--- NOTE | 2019-05-20 01:05 | HP ---
<Phani Schreiber - Last Filed: 05/20/19 05:44> CHIEF COMPLAINT: mechanical fall on warfarin PCP: HISTORY OF PRESENT ILLNESS: 78F of pmh of Afib s/p failed MAZE(on coumadin), CAD s/p CABG, HF, bioprosethetic MVR(2014, [employer] #[id number]), bioprosthetic AVR(2014, [employer] # [id number]), pacemaker(2018, [employer] #[id number]), b/l knee pain, hypothyroidism presents to [facility]-ED after mechanical fall, tripping over concrete block in parking lot, hitting Right hip. Two strangers helped patient up. Denies LOC, dizziness, confusion, CP, palpitations, SOB before or after falling. Went home but recalled that since she takes warfarin, she should present to the ED for evaluation. Complains of mild soreness, 2/10 pain of Right hip, does not radiate. Denies decreased ROM, nerve pain. Normally drinks ~8bottles water/ daily. States that she drank less water recently. ER course was notable for: (1) EKG showing afib, RVR, possible new LBBB (2) s/p diltiazem, coreg, NS 500 Recent Travel: PAST MEDICAL HISTORY: failed MAZE(on coumadin), CAD s/p CABG, HF, bioprosethetic MVR(2014, [employer] # [id number]), bioprosthetic AVR(2014, [employer] #[id number]), pacemaker(2018, [employer] # [id number]), b/l knee pain, hypothyroidism PAST SURGICAL HISTORY: CABG AVR, MVR b/l arthroscopic knee Social History: Smoking: a few months at age 17y/o Alcohol: social Drugs: denies Family History: mother(DM, heart disease, CVA), daughter(respir issues 2/2 chronic tobacco) Allergies No Known Allergies Allergy (Verified 05/19/19 17:45) HOME MEDICATIONS: Home Medications Medication Instructions Recorded Albuterol Sulfate [Proair Hfa -] 1 - 2 inh PO PRN PRN 05/28/12 Cholecalciferol (Vitamin D3) 1,000 unit PO DAILY 05/28/12 [Vitamin D] Digoxin [Lanoxin -] 0.125 mg PO DAILY 05/28/12 Furosemide [Lasix -] 40 mg PO DAILY 05/28/12 Levothyroxine [Synthroid -] 175 mcg PO DAILY 05/28/12 Multivits W-Fe,Other Min/Lut 1 each PO DAILY 05/28/12 [Centrum Silver Ultra Women Tab] Atorvastatin Calcium [Lipitor] 10 mg PO HS 06/24/13 Ranitidine HCl [Zantac] 150 mg PO BID 06/24/13 Acetaminophen [Tylenol] 650 mg PO PRN PRN 08/19/15 Aspirin [ASA -] 81 mg PO DAILY 08/19/15 Beclomethasone Dipropionate [Qvar 8.7 gm IH BID 08/19/15] Potassium Chloride [Klor-Con M20] 20 meq PO BID 08/19/15 Warfarin Sodium [Coumadin] 4 mg PO DAILY 08/19/15 Diltiazem Cd [Cardizem Cd -] 240 mg PO BID #60 cap.cd.24h 09/07/15 Nebivolol [Bystolic -] 5 mg PO DAILY #30 tab 09/07/15 Aclidinium [place]audette [Tudorza -] 1 puff IH BID #1 inhaler 01/28/17 Metolazone [Zaroxolyn -] 2.5 mg PO Q2D@1000 #30 tablet 01/28/17 Spironolactone [Aldactone -] 25 mg PO DAILY #30 tablet 01/28/17 REVIEW OF SYSTEMS CONSTITUTIONAL: Absent: fever, chills, diaphoresis, generalized weakness, malaise, loss of appetite, weight change HEENT: Absent: rhinorrhea, nasal congestion, throat pain, throat swelling, difficulty swallowing, mouth swelling, ear pain, eye pain, visual changes CARDIOVASCULAR: h/o BLE edema(last episode ys ago) Absent: chest pain, syncope, palpitations, irregular heart rate, lightheadedness RESPIRATORY: Absent: cough, shortness of breath, wheezing, stridor, hemoptysis GASTROINTESTINAL: Absent: abdominal pain, abdominal distension, nausea, vomiting, diarrhea, constipation, melena, hematochezia GENITOURINARY: Absent: dysuria, frequency, urgency, hesitancy, hematuria, flank pain, genital pain MUSCULOSKELETAL: Absent: myalgia, arthralgia, joint swelling, back pain, neck pain SKIN: Absent: rash, itching, pallor HEMATOLOGIC/IMMUNOLOGIC: Absent: easy bleeding, easy bruising, lymphadenopathy, frequent infections ENDOCRINE: Absent: unexplained weight gain, unexplained weight loss NEUROLOGIC: Absent: headache, focal weakness or paresthesias, dizziness, unsteady gait, seizure, mental status changes, bladder or bowel incontinence PSYCHIATRIC: Absent: anxiety, depression, suicidal or homicidal ideation, hallucinations. PHYSICAL EXAMINATION Vital Signs - 24 hr 05/19/19 05/19/19 17:43 20:37 Temperature 97.6 F 97.6 F Pulse Rate 120 H Pulse Rate [ 111 H Apical] Respiratory 19 20 Rate Blood Pressure 127/62 Blood Pressure 108/64 [Right Arm] O2 Sat by Pulse 96 98 Oximetry (%) GENERAL: Awake, alert, and fully oriented, in no acute distress. HEAD: Normal with no signs of trauma. Mild temporal wasting EYES: Pupils equal, round and reactive to light, extraocular movements intact, sclera anicteric, conjunctiva clear. EARS, NOSE, THROAT: Ears normal, nares patent. Moist mucous membranes. NECK: Normal range of motion, supple without lymphadenopathy, JVD, or masses. LUNGS: Breath sounds equal, clear to auscultation bilaterally. No wheezes, and no crackles. No accessory muscle use. HEART: Regular rate and rhythm, normal S1 and S2 without murmur, rub or gallop. Midline sternal surgical wound, well-healed. Left chest wall with palpable pacemaker. ABDOMEN: Soft, nontender, not distended, no guarding, no rebound, no masses. MUSCULOSKELETAL: Normal range of motion at all joints. UPPER EXTREMITIES: 2+ pulses, warm, well-perfused. No peripheral edema. Right elbow with ecchymosis, abrasion w/o active bleeding LOWER EXTREMITIES: warm, well-perfused. No calf tenderness. Mottled hyperpigmenation of lower legs b/l, nonpitting edema. Right hip with ~10cm ecchymosis w/ soft bulging soft tissue swelling, mildly TTP. NEUROLOGICAL: Normal speech. Moving all extremities spontaneously PSYCHIATRIC: Cooperative. Good eye contact. Appropriate mood and affect. SKIN: Warm, dry, normal turgor, no rashes or lesions noted, normal capillary refill. Laboratory Results - last 24 hr 05/19/19 05/19/19 05/19/19 18:34 22:50 23:03 WBC 17.4 H RBC 3.88 Hgb 11.7 Hct 35.0 MCV 90.2 MCH 30.2 MCHC 33.4 RDW 14.7 Plt Count 194 D MPV 8.8 Absolute Neuts (auto) 15.0 H Neutrophils % 86.2 H D Lymphocytes % 6.5 L D Monocytes % 6.0 Eosinophils % 0.8 Basophils % 0.5 Nucleated RBC % 0 PT with INR 27.30 H INR 2.29 H Sodium Potassium Chloride Carbon Dioxide Anion Gap BUN Creatinine Est GFR (CKD-EPI)AfAm Est GFR (CKD-EPI)NonAf POC Glucometer 145 Random Glucose Calcium Total Bilirubin AST ALT Alkaline Phosphatase Troponin I Total Protein Albumin 05/19/19 23:03 WBC RBC Hgb Hct MCV MCH MCHC RDW Plt Count MPV Absolute Neuts (auto) Neutrophils % Lymphocytes % Monocytes % Eosinophils % Basophils % Nucleated RBC % PT with INR INR Sodium 136 Potassium 4.6 Chloride 101 Carbon Dioxide 28 Anion Gap 8 BUN 44.8 H Creatinine 1.7 H Est GFR (CKD-EPI)AfAm 32.67 Est GFR (CKD-EPI)NonAf 28.19 POC Glucometer Random Glucose 139 H Calcium 8.8 Total Bilirubin 0.6 AST 23 ALT 20 Alkaline Phosphatase 81 Troponin I 0.02 Total Protein 7.5 Albumin 3.5 ASSESSMENT/PLAN: 78F of pmh of Afib s/p failed MAZE(on coumadin), CAD s/p CABG, HF, bioprosethetic MVR(2015, [employer] #[id number]), bioprosthetic AVR(2015, [employer] # [id number]), pacemaker(2018, [employer] #[id number]), b/l knee pain, hypothyroidism presents to [facility]-ED after mechanical fall. # Fall - fu orthostatic BP - low concern for muscle injury/rhabdomyolysis # Left hip hematoma - serial examinations - consider CTA if expanding # Afib > troponin <0.02 > EKG(05/19/19): possible new LBBB, ST changes - cardiology consult -- Dr Nagy - trend troponins # HF - NYHA Class I - fu [digoxin] - fu echo # WILTON - hold lasix, spironolactone - FeUr - encourgae PO intake # leukocytosis -- no obvious infection > WBC(17.4) - fu CXR - fu UA # hypothyroidism - cw home levothyroxine Phani Schreiber, DO PGY-1 Medicine, PM-Float [id number] 05/20/19 Visit type - Emergency Visit Emergency Visit: Yes ED Registration Date: 05/20/19 Care time: The patient presented to the Emergency Department on the above date and was hospitalized for further evaluation of their emergent condition. - New Patient This patient is new to me today: Yes Date on this admission: 05/20/19 - Critical Care Critical Care patient: No ATTENDING PHYSICIAN STATEMENT I saw and evaluated the patient. I reviewed the resident's note and discussed the case with the resident. I agree with the resident's findings and plan as documented. SUBJECTIVE: OBJECTIVE: ASSESSMENT AND PLAN: <Franck Thornton - Last Filed: 06/19/19 20:34> Seen and examined; verified all vital parts of historical info and PE. Please see my own note for further discussion. Agree with above aside from as supplemented by myself. ATTENDING PHYSICIAN STATEMENT I saw and evaluated the patient. I reviewed the resident's note and discussed the case with the resident. I agree with the resident's findings and plan as documented. SUBJECTIVE: OBJECTIVE: ASSESSMENT AND PLAN:
[2019-05-20] MEDS ORDERED: NITROGLYCERIN SUBLINGUAL 1/200 0.3 MG BTL SL PRN (03:53)
[2019-05-20] MEDS ORDERED: SODIUM CHLORIDE 1,000 ML IV SCH (04:00)
[2019-05-20] MEDS ORDERED: PATIENT'S OWN MEDICATION (NON-FORMULARY) (Levothyroxine [Synthroid -] 175 MCG) PO SCH (04:00)
--- NOTE | 2019-05-20 06:31 | PN ---
Teaching Attending Note Name of Resident: Phani Guerrero ATTENDING PHYSICIAN STATEMENT I saw and evaluated the patient. I reviewed the resident's note and discussed the case with the resident. I agree with the resident's findings and plan as documented. VS, labs, imaging reviewed personally; all HPI/PMH/PSH/FH/SH/ROS reviewed with resident of record NAD, AAO, resting in bed Lungs CTAB, w/ sym exp Irregularly irregular, s1/2 mild systolic murmur NT ND +BS Orthostatic VS pending CN2-12 wnl, no fnd +pedal pulses, stereotyped PVD changes Normal mood, appropriate behavior Large R-hip hematoma that is somewhat painful to palpation with overlying ecchymosis; outlined 3AM ASSESSMENT AND PLAN: Patient presents after mechanical fall; found to be presyncopal with Afib with RVR and WILTON alongside a large R-hip hematoma (on warfarin); she has some precordial changes on EKG with negative troponin # Mechanical Fall # Presyncope # Afib with RVR, now rate controlled # Hematoma # WILTON # Leukocytosis # S/P bioprosthetic MVR and AVR # SSS s/p Pacemaker # Hx Hypothyroidism -For fall, we will place her on fall precautions and consult PT. For her presyncope we will consult her business rules analyst given her complex history as well as place her on telemetry and obtain an echo and followup on the orthostatics; CT head negative. It may be related to afib with RVR-I do not have the strip from when this occurred. She got rate controlled again once she got her PM medications so will continue at current dose and confirm meds with pharmacy in AM (some changes such as stated change from bystolic to coreg, etc.). Also checking digoxin level. We will confirm her goal INR given valvular sgy and afib and have pharmacy dose coumadin. Given the risks of stopping the coumadin with her hx, I would opt to continue it and monitor the hematoma closely. If it expands or she drops her Hb we can consider sgy consultation. -In terms of the EKG changes, they are new compared to her last admission but this is over a year ago. She denies symptoms; she did have presyncope but this could be explained by the afib with rvr. Negative troponin x2. We will opt to consult cardio and obtain another troponin. -For WILTON we will hold nephrotoxic medications and repeat the BMP given the hydration in the ER. If no improvement consider nephrology consult. -Leukocytosis could be reactive; monitor for fevers and check a UA and CXR. Full Code
[2019-05-20 07:15] LABS: BASO % 0.6 % (0-2.0); HEMATOCRIT 29.8 % (32.4-45.2); LYMPH % 9.8 % (8-40); MCH 30.3 pg (25.7-33.7); MCHC 33.7 g/dl (32.0-36.0); MEAN PLT VOLUME 8.8 fl (7.5-11.1); MONO % 8.2 % (3.8-10.2); NEUT % 80.4 % (42.8-82.8); PLATELET COUNT 162 K/MM3 (134-434); RBC 3.31 M/mm3 (3.60-5.2); RDW 14.7 % (11.6-15.6); WHITE BLOOD COUNT 11.3 K/mm3 (4.0-10.0)
[2019-05-20 07:30] LABS: INR 2.41 (0.83-1.09); PROTHROMBIN TIME (PATIENT) 28.7 SEC (9.7-13.0)
[2019-05-20 08:30] LABS: N-TERMINAL BNP 5949.4 pg/ml (5-450)
[2019-05-20] MEDS: ASPIRIN 81 MG CHEWABLE TABLETS PO SCH (09:53)
[2019-05-20] MEDS: RANITIDINE HCL 150 MG TABLET (FP) PO SCH ×2 (09:53→21:45)
[2019-05-20] MEDS: CARVEDILOL 6.25 MG TABLET (FP) PO SCH ×2 (09:53→21:46)
--- NOTE | 2019-05-20 09:55 | PN ---
Physical Exam: SUBJECTIVE: Patient seen and examined. No chest pain, no SOB. Pt describes feeling tachycardic in EDafter inital rate controlled EKG on admission. Describes a mechanical fall and denies hitting her head. Pain around bruise on R buttock OBJECTIVE: Vital Signs Period Temp Pulse Resp BP Sys/Agudelo Pulse Ox Last 24 Hr 97.6 F-97.6 F 70-120 19-20 108-127/52-64 96-99 Vital Signs Temp 98.8 F 05/20/19 01:34 Pulse 72 05/20/19 13:30 Resp 20 05/20/19 13:30 BP 136/84 05/20/19 13:30 Pulse Ox 97 05/20/19 13:30 Intake & Output 05/19/19 05/20/19 05/20/19 23:59 11:59 23:59 Weight 83.915 kg Other: Voiding Method Toilet Toilet Height 1.68 m 1.68 m Body Mass Index (BMI) 29.8 Weight Measurement Method Est/Stated by Patient GENERAL: The patient is awake, alert, and fully oriented, in no acute distress. HEAD: Normal with no signs of trauma. EYES: PERRL, extraocular movements intact ENT: moist mucous membranes. LUNGS: Breath sounds equal, clear to auscultation bilaterally HEART: Regular rate and rhythm, S1, S2 with murmur RUSB, LUSB, ABDOMEN: Soft, nontender, nondistended, normoactive bowel sounds EXTREMITIES: RLE with R buttock hematoma [id number] bluish/purple, not raised, no active bleeding. 2+ pulses, warm, well-perfused, no edema. R elbow with bruise measuring 1x3cm NEUROLOGICAL: Cranial nerves II through XII grossly intact. Normal speech, Strength 5/5 globally, no lateralizing signs, gait not observed. SKIN: Scattered bruises R upper extremity CBC, BMP 05/20/19 06:15 05/19/19 23:03 Laboratory Results - last 24 hr 05/19/19 05/19/19 05/19/19 18:34 22:50 23:03 WBC 17.4 H RBC 3.88 Hgb 11.7 Hct 35.0 MCV 90.2 MCH 30.2 MCHC 33.4 RDW 14.7 Plt Count 194 D MPV 8.8 Absolute Neuts (auto) 15.0 H Neutrophils % 86.2 H D Lymphocytes % 6.5 L D Monocytes % 6.0 Eosinophils % 0.8 Basophils % 0.5 Nucleated RBC % 0 PT with INR 27.30 H INR 2.29 H Sodium Potassium Chloride Carbon Dioxide Anion Gap BUN Creatinine Est GFR (CKD-EPI)AfAm Est GFR (CKD-EPI)NonAf POC Glucometer 145 Random Glucose Calcium Total Bilirubin AST ALT Alkaline Phosphatase Creatine Kinase Troponin I B-Natriuretic Peptide Total Protein Albumin TSH Digoxin 05/19/19 05/20/19 05/20/19 23:03 02:34 06:15 WBC 11.3 H RBC 3.31 L Hgb 10.0 L Hct 29.8 L MCV 90.0 MCH 30.3 MCHC 33.7 RDW 14.7 Plt Count 162 MPV 8.8 Absolute Neuts (auto) 9.1 H Neutrophils % 80.4 Lymphocytes % 9.8 D Monocytes % 8.2 Eosinophils % 1.0 Basophils % 0.6 Nucleated RBC % 0 PT with INR INR Sodium 136 Potassium 4.6 Chloride 101 Carbon Dioxide 28 Anion Gap 8 BUN 44.8 H Creatinine 1.7 H Est GFR (CKD-EPI)AfAm 32.67 Est GFR (CKD-EPI)NonAf 28.19 POC Glucometer Random Glucose 139 H Calcium 8.8 Total Bilirubin 0.6 AST 23 ALT 20 Alkaline Phosphatase 81 Creatine Kinase 99 Troponin I 0.02 0.02 B-Natriuretic Peptide Total Protein 7.5 Albumin 3.5 TSH Digoxin 05/20/19 05/20/19 06:15 06:15 WBC RBC Hgb Hct MCV MCH MCHC RDW Plt Count MPV Absolute Neuts (auto) Neutrophils % Lymphocytes % Monocytes % Eosinophils % Basophils % Nucleated RBC % PT with INR 28.70 H INR 2.41 H Sodium Potassium Chloride Carbon Dioxide Anion Gap BUN Creatinine Est GFR (CKD-EPI)AfAm Est GFR (CKD-EPI)NonAf POC Glucometer Random Glucose Calcium Total Bilirubin AST ALT Alkaline Phosphatase Creatine Kinase 86 Troponin I < 0.02 B-Natriuretic Peptide 5949.4 H Total Protein Albumin TSH 1.45 Digoxin 1.24 Active Medications Generic Name Dose Route Start Last Admin Trade Name Freq PRN Reason Stop Dose Admin Aspirin 81 mg 05/20/19 10:00 Asa - PO DAILY [facility] Atorvastatin Calcium 10 mg 05/20/19 22:00 Lipitor - PO HS JO-ANN Carvedilol 6.25 mg 05/20/19 10:00 Coreg - PO BID [facility] Digoxin 0.125 mg 05/20/19 04:00 Lanoxin - PO WEEKLY [facility] Diltiazem HCl 240 mg 05/20/19 10:00 Cardizem Cd - PO BID [facility] Sodium Chloride 1,000 mls @ 42 mls/hr 05/20/19 04:00 05/20/19 04:12 Normal Saline - IV 42 mls/hr ASDIR [facility] Administration Metolazone 2.5 mg 05/20/19 10:00 Zaroxolyn - PO Q2D@1000 [facility] Nitroglycerin 0.6 mg 05/20/19 03:53 Nitrostat - SL DAILY PRN FOR CHEST PAIN Non-Formulary Medication 8.7 gm 05/20/19 10:00 Beclomethasone Dipropionate [Qvar ] IH BID [facility] Non-Formulary Medication 175 mcg 05/20/19 04:00 Levothyroxine [Synthroid -] PO WEEKLY [facility] Ranitidine HCl 150 mg 05/20/19 10:00 Zantac - PO BID [facility] Spironolactone 25 mg 05/20/19 10:00 Aldactone - PO DAILY [facility] Warfarin Sodium 4 mg 05/20/19 18:00 Coumadin - PO DAILY@1800 [facility] Ambulatory Orders Albuterol Sulfate [Proair Hfa -] 1 - 2 inh PO PRN PRN 05/28/12 Cholecalciferol (Vitamin D3) [Vitamin D] 1,000 unit PO DAILY 05/28/12 Digoxin [Lanoxin -] 0.125 mg PO WEEKLY 05/28/12 Furosemide [Lasix -] 40 mg PO DAILY 05/28/12 Levothyroxine [Synthroid -] 175 mcg PO WEEKLY 05/28/12 Multivits W-Fe,Other Min/Lut [Centrum Silver Ultra Women Tab] 1 each PO DAILY Atorvastatin Calcium [Lipitor] 10 mg PO HS 06/24/13 Ranitidine HCl [Zantac] 150 mg PO BID 06/24/13 Acetaminophen [Tylenol] 650 mg PO PRN PRN 08/19/15 Aspirin [ASA -] 81 mg PO DAILY 08/19/15 Beclomethasone Dipropionate [Qvar ] 8.7 gm IH BID 08/19/15 Potassium Chloride [Klor-Con M20] 20 meq PO BID 08/19/15 Warfarin Sodium [Coumadin] 4 mg PO DAILY 08/19/15 Diltiazem Cd [Cardizem Cd -] 240 mg PO BID #60 cap.cd.24h 09/07/15 Aclidinium [place] [Tudorza -] 1 puff IH BID #1 inhaler 01/28/17 Metolazone [Zaroxolyn -] 2.5 mg PO Q2D@1000 #30 tablet 01/28/17 Spironolactone [Aldactone -] 25 mg PO DAILY #30 tablet 01/28/17 Carvedilol 6.25 mg PO BID 05/20/19 Nitroglycerin Sublingual [Nitrostat -] 0.6 mg SL DAILY PRN 05/20/19 Current Medications Aspirin (Asa -) 81 mg PO DAILY [facility] Last Admin: 05/20/19 09:53 Dose: 81 mg Atorvastatin Calcium (Lipitor -) 10 mg PO HS [facility] Carvedilol (Coreg -) 6.25 mg PO BID [facility] Last Admin: 05/20/19 09:53 Dose: 6.25 mg Digoxin (Lanoxin -) 0.125 mg PO WEEKLY [facility] Diltiazem HCl (Cardizem Cd -) 240 mg PO BID [facility] Last Admin: 05/20/19 09:53 Dose: 240 mg Sodium Chloride (Normal Saline -) 1,000 mls @ 42 mls/hr IV ASDIR [facility] Last Admin: 05/20/19 04:12 Dose: 42 mls/hr Nitroglycerin (Nitrostat -) 0.6 mg SL DAILY PRN PRN Reason: FOR CHEST PAIN Non-Formulary Medication (Beclomethasone Dipropionate [Qvar ]) 8.7 gm IH BID [facility] Non-Formulary Medication (Levothyroxine [Synthroid -]) 175 mcg PO WEEKLY [facility] Ranitidine HCl (Zantac -) 150 mg PO BID [facility] Last Admin: 05/20/19 09:53 Dose: 150 mg Spironolactone (Aldactone -) 25 mg PO DAILY [facility] Warfarin Sodium (Coumadin -) 4 mg PO DAILY@1800 [facility] Last Admin: 05/20/19 18:58 Dose: 4 mg ASSESSMENT/PLAN: 78F of pmh of Afib s/p failed MAZE(on coumadin), CAD s/p CABG, HF, bioprosethetic MVR(2015, [employer] #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 # Fall - orthostatic neg -Pt described it as mechanical, no LOC, no hitting of head - low concern for muscle injury/rhabdomyolysis - CT head negative (pt on coumadin) -Carotid duplex-With 60% stenosis # R hip hematoma - serial examinations -Could be concerning for compartment syndrome - consider CTA if expanding # Afib w/rvr -Unsure what precipitated RVR -Pt on coumadin, no chest pain > troponin <0.02 x2 > EKG -Pt with PPM for failed MAZE, initially thought to be LBBB on admission - cardiology consult -- Dr Nagy- appears order was entered in error for Dr Fu -Cont coreg #S/p CABG -cont ASA, coreg, lipitor # CHF - - digoxin -nl -Pt on spironolactone, coreg - echo -On gentle hydration -Lasix on hold # WILTON - hold lasix, cont spironolactone - encourage PO intake -Gentle hydration # Positive UA -Unable to get a hx of UTI -leukocytosis, WBC(17.4) -Positive UA-nitrites, LE - CXR -negative - Will hold Ceftriaxone for now and re-evaluate # hypothyroidism - cw home levothyroxine #OLD On Home Qvar, hold albuterol with episode of afib w/rvr Visit type - Emergency Visit Emergency Visit: Yes ED Registration Date: 05/20/19 Care time: The patient presented to the Emergency Department on the above date and was hospitalized for further evaluation of their emergent condition. - New Patient This patient is new to me today: Yes Date on this admission: 05/20/19 - Critical Care Critical Care patient: No - Discharge Referral Referred to [facility] Med P.C.: No ATTENDING PHYSICIAN STATEMENT I saw and evaluated the patient. I reviewed the resident's note and discussed the case with the resident. I agree with the resident's findings and plan as documented. SUBJECTIVE: OBJECTIVE: ASSESSMENT AND PLAN:
[2019-05-20] MEDS ORDERED: [UNRECOGNIZED DRUG - OTHER] IH SCH (10:00)
[2019-05-20] MEDS ORDERED: BECLOMETHASONE DIPROPIONATE 8.7 GM IH SCH (10:00)
[2019-05-20] MEDS ORDERED: METOLAZONE 2.5 MG TABLET (FP) PO SCH (10:00)
[2019-05-20 10:41] LABS: HYALINE CASTS 6 /lpf (0-8); PH,URINE 5.5 (5.0-8.0); URINE APPEARANCE CLEAR; URINE BACTERIA 2721.6 /hpf (NEGATIVE); URINE BILIRUBIN NEGATIVE (NEGATIVE); URINE COLOR YELLOW; URINE GLUCOSE (UA) NEGATIVE (NEGATIVE); URINE KETONE NEGATIVE (NEGATIVE); URINE LEUK ESTERASE 2+ (NEGATIVE); URINE NITRITE POSITIVE (NEGATIVE); URINE PROTEIN TRACE (NEGATIVE); URINE RBC 2 /hpf (0-4); URINE UROBILINOGEN 0.2 mg/dL (0.2-1.0); URINE WBC 62 /hpf (0-5)
--- NOTE | 2019-05-20 12:09 | ECHO ---
Name: BURT JON Exam:Adult Echocardiogram Study Date: 05/20/2019 10:44 AM Age: 78 yrs Reason For Study: ?AFIB WRVR Height: 66 in Weight: 185 lb BSA: 1.9 m2 MMode/2D Measurements & Calculations IVSd: 0.86 cm Ao root diam: 2.6 cm LVIDd: 4.6 cm LVIDs: 3.4 cm LVPWd: 0.83 cm EDV(Teich): 97.3 ml LVOT diam: 1.9 cm ESV(Teich): 47.5 ml Doppler Measurements & Calculations MV P1/2t max dmitri: 217.2 cm/sec MVA(VTI): 0.90 cm2 MV P1/2t: 154.2 msec MV V2 max: 218.5 cm/sec MV max P.1 mmHg MVA(P1/2t): 1.4 cm2 MV V2 mean: 118.2 cm/sec MV dec slope: 412.6 cm/sec2 MV mean P.9 mmHg MV V2 VTI: 59.1 cm Ao V2 max: 268.1 cm/sec LV V1 max P.4 mmHg Ao max P.9 mmHg LV V1 mean P.9 mmHg Ao V2 mean: 181.0 cm/sec LV V1 max: 116.1 cm/sec Ao mean P.5 mmHg LV V1 mean: 78.7 cm/sec Ao V2 VTI: 49.5 cm LV V1 VTI: 19.7 cm RIVERA(I,D): 1.1 cm2 RIVERA(V,D): 1.2 cm2 MR max dmitri: 446.3 cm/sec SV(LVOT): 53.5 ml MR max P.7 mmHg TR max dmitri: 241.3 cm/sec Med Peak E' Dmitri: 2.5 cm/sec TR max P.4 mmHg Lat Peak E' Dmitri: 3.9 cm/sec Left Ventricle There is mild concentric left ventricular hypertrophy. Ejection Fraction = 55-60%. There is a Left Ve ntricular intravavitary gradient: peak 31mmHg. Right Ventricle There is a pacemaker lead in the right ventricle. Atria The left atrium is mildly dilated. Right atrial size is normal. Mitral Valve The prosthetic mitral valve is well-seated. The mean gradient across the mitral valve prosthesis is 7 mmHg. There is a bioprosthetic mitral valve. There is mild mitral regurgitation. Tricuspid Valve The tricuspid valve is not well visualized, but is grossly normal. There is mild to moderate tricuspi d regurgitation. Right ventricular systolic pressure is normal. Aortic Valve Suspected bioprosthetic aortic valve vs. moderate to severe aortic valve sclerosis. The mean transaor tic valve gradient is 16mmHg, mildly elevated. Mild aortic regurgitation. Pulmonic Valve The pulmonic valve is not well seen, but is grossly normal. There is no pulmonic valvular stenosis. Great Vessels The aortic root is normal size. Pericardium/Pleura There is no pericardial effusion. Interpretation Summary There is mild concentric left ventricular hypertrophy. Ejection Fraction = 55-60%. The left atrium is mildly dilated. The prosthetic mitral valve is well-seated. The mean gradient across the mitral valve prosthesis is 7mmHg. There is mild mitral regurgitation. There is a Left Ventricular intravavitary gradient: peak 31mmHg. There is mild to moderate tricuspid regurgitation. Suspected bioprosthetic aortic valve vs. moderate to severe aortic valve sclerosis. Mild aortic regurgitation. The mean transaortic valve gradient is 16mmHg, mildly elevated. There is no pericardial effusion. MD Velasco *Eda 05/20/2019 12:09 PM
--- NOTE | 2019-05-20 13:32 | EKG ---
Test Reason : Blood Pressure : / mmHG Vent. Rate : 082 BPM Atrial Rate : 078 BPM P-R Int : 000 ms QRS Dur : 112 ms QT Int : 402 ms P-R-T Axes : 000 011 062 degrees QTc Int : 469 ms ATRIAL FIBRILLATION WITH FREQUENT ventricular-paced complexes NONSPECIFIC ST ABNORMALITY ABNORMAL ECG Confirmed by KATJA CHAVEZ MD ([id number]) on 05/20/2019 1:32:16 PM Referred By: Confirmed By:KATJA CHAVEZ MD
--- NOTE | 2019-05-20 13:34 | EKG ---
Test Reason : Blood Pressure : / mmHG Vent. Rate : 117 BPM Atrial Rate : 111 BPM P-R Int : 000 ms QRS Dur : 108 ms QT Int : 300 ms P-R-T Axes : 000 023 -59 degrees QTc Int : 418 ms ATRIAL FIBRILLATION WITH RAPID VENTRICULAR RESPONSE MARKED ST ABNORMALITY, POSSIBLE INFEROLATERAL SUBENDOCARDIAL INJURY ABNORMAL ECG Confirmed by KATJA CHAVEZ MD ([id number]) on 05/20/2019 1:33:35 PM Referred By: Confirmed By:KATJA CHAVEZ MD
[2019-05-20] MEDS ORDERED: CEFTRIAXONE 1,000 MG in DEXTROSE 5%-WATER - 50 ML IVPB ONE (14:04)
[2019-05-20] MEDS ORDERED: CEFTRIAXONE 1 GM/50 ML BAG ONE (14:36)
--- NOTE | 2019-05-20 17:08 | CON.CARD ---
Consult Consult Specialty:: Cardiology Referred by:: Dr. 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 [employer] Home Medications - Allergies Allergies/Adverse Reactions: Allergies Allergy/AdvReac Type Severity Reaction Status Date / Time No Known Allergies Allergy Verified 05/19/19 17:45 - Home Medications Home Medications: Ambulatory Orders Albuterol Sulfate [Proair Hfa -] 1 - 2 inh PO PRN PRN 05/28/12 Cholecalciferol (Vitamin D3) [Vitamin D] 1,000 unit PO DAILY 05/28/12 Digoxin [Lanoxin -] 0.125 mg PO WEEKLY 05/28/12 Furosemide [Lasix -] 40 mg PO DAILY 05/28/12 Levothyroxine [Synthroid -] 175 mcg PO WEEKLY 05/28/12 Multivits W-Fe,Other Min/Lut [Centrum Silver Ultra Women Tab] 1 each PO DAILY Atorvastatin Calcium [Lipitor] 10 mg PO HS 06/24/13 Ranitidine HCl [Zantac] 150 mg PO BID 06/24/13 Acetaminophen [Tylenol] 650 mg PO PRN PRN 08/19/15 Aspirin [ASA -] 81 mg PO DAILY 08/19/15 Beclomethasone Dipropionate [Qvar ] 8.7 gm IH BID 08/19/15 Potassium Chloride [Klor-Con M20] 20 meq PO BID 08/19/15 Warfarin Sodium [Coumadin] 4 mg PO DAILY 08/19/15 Diltiazem Cd [Cardizem Cd -] 240 mg PO BID #60 cap.cd.24h 09/07/15 Aclidinium [place] [Tudorza -] 1 puff IH BID #1 inhaler 01/28/17 Metolazone [Zaroxolyn -] 2.5 mg PO Q2D@1000 #30 tablet 03/22/17 Spironolactone [Aldactone -] 25 mg PO DAILY #30 tablet 01/28/17 Carvedilol 6.25 mg PO BID 05/20/19 Nitroglycerin Sublingual [Nitrostat -] 0.6 mg SL DAILY PRN 05/20/19 Family Disease History - Family Disease History Family Disease History: Heart Disease: Father Vital Signs: Vital Signs Temperature 97.6 F 05/19/19 20:37 Pulse Rate 72 05/20/19 13:30 Respiratory Rate 20 05/20/19 13:30 Blood Pressure 136/84 05/20/19 13:30 O2 Sat by Pulse Oximetry (%) 97 05/20/19 13:30 - Other Data Labs, Other Data: CBC, BMP 05/20/19 06:15 05/19/19 23:03 INR, PTT INR 2.41 (0.83-1.09) H 05/20/19 06:15 Troponin, BNP 05/19/19 05/20/19 05/20/19 23:03 02:34 06:15 Troponin I 0.02 0.02 < 0.02 B-Natriuretic Peptide 5949.4 H Troponin, BNP 05/19/19 05/20/19 05/20/19 23:03 02:34 06:15 Troponin I 0.02 0.02 < 0.02 B-Natriuretic Peptide 5949.4 H
[2019-05-20] MEDS ORDERED: WARFARIN NA 2 MG TABLET (UD) PO SCH (18:00)
--- NOTE | 2019-05-20 18:04 | PN ---
Teaching Attending Note Name of Resident: Dipika Villa ATTENDING PHYSICIAN STATEMENT I saw and evaluated the patient. I reviewed the resident's note and discussed the case with the resident. I agree with the resident's findings and plan as documented. SUBJECTIVE: Ms Luanne Field says she is doing well today. Says she had a mechanical fall. Has pain at the site of the fall but not severe, not even requiring tylenol. No cp, sob, n/v. OBJECTIVE: Last Vital Signs Temp Pulse Resp BP Pulse Ox 36.4 C 72 20 136/84 97 05/19/19 20:37 05/20/19 13:30 05/20/19 13:30 05/20/19 13:30 05/20/19 13:30 Gen: nad Pulm: ctab w/o w/r/r CV: irreg irreg w/ minimal FRANCISCO Abd: +bs, s/nt/nd Ext: hematoma on buttock, stable CBC, BMP 05/20/19 06:15 05/19/19 23:03 ASSESSMENT AND PLAN: Problem List - Problems (1) Fall Assessment/Plan: -mechanical -however concern for presyncope -ECHO performed and reviewed -carotid ultrasound reviewed, consult vascular surgery to evaluate -hold on CTA or MRA secondary to renal function, suspect can do as outpatient -PT consult Code(s): W19.XXXA - UNSPECIFIED FALL, INITIAL ENCOUNTER Qualifiers: Encounter type: initial encounter Qualified Code(s): W19.XXXA - Unspecified fall, initial encounter (2) Hematoma Assessment/Plan: -stable for past 12 hours -monitor -can continue coumadin since not growing Code(s): T14.8XXA - OTHER INJURY OF UNSPECIFIED BODY REGION, INITIAL ENCOUNTER (3) WILTON (acute kidney injury) Assessment/Plan: -hold diuretics -gentle hydration -recheck in am Code(s): N17.9 - ACUTE KIDNEY FAILURE, UNSPECIFIED (4) Atrial fibrillation Assessment/Plan: -controlled -continue home regimen Code(s): I48.91 - UNSPECIFIED ATRIAL FIBRILLATION Qualifiers: Atrial fibrillation type: chronic Qualified Code(s): I48.2 - Chronic atrial fibrillation (5) CAD (coronary artery disease), autologous vein bypass graft Assessment/Plan: -cardiology consulted -follow up recommendations -continue home regimen Code(s): I25.810 - ATHEROSCLEROSIS OF CABG W/O ANGINA PECTORIS Qualifiers: Associated angina: without angina Qualified Code(s): I25.810 - Atherosclerosis of coronary artery bypass graft(s) without angina pectoris (6) COPD (chronic obstructive pulmonary disease) Assessment/Plan: -not in exacerbation -continue regimen Code(s): J44.9 - CHRONIC OBSTRUCTIVE PULMONARY DISEASE, UNSPECIFIED Qualifiers: COPD type: unspecified COPD Qualified Code(s): J44.9 - Chronic obstructive pulmonary disease, unspecified (7) Diastolic CHF, chronic Assessment/Plan: -elevated BNP but at baseline -also with WILTON so inaccurate -not overloaded, slightly dry -gentle hydration, hold diuretics -evaluate in am Code(s): I50.32 - CHRONIC DIASTOLIC (CONGESTIVE) HEART FAILURE (8) History of aortic valve replacement with bioprosthetic valve Assessment/Plan: -noted Code(s): Z95.4 - PRESENCE OF OTHER HEART-VALVE REPLACEMENT (9) History of mitral valve replacement with bioprosthetic valve Assessment/Plan: -noted Code(s): Z95.4 - PRESENCE OF OTHER HEART-VALVE REPLACEMENT (10) Hyperlipidemia Assessment/Plan: -continue statin Code(s): E78.5 - HYPERLIPIDEMIA, UNSPECIFIED Qualifiers: Hyperlipidemia type: Pure hypercholesterolemia (11) Hypertension Assessment/Plan: -controlled Code(s): I10 - ESSENTIAL (PRIMARY) HYPERTENSION Qualifiers: Hypertension type: essential hypertension Qualified Code(s): I10 - Essential (primary) hypertension (12) Hypothyroidism Assessment/Plan: -continue synthroid Code(s): E03.9 - HYPOTHYROIDISM, UNSPECIFIED Qualifiers: Hypothyroidism type: unspecified Qualified Code(s): E03.9 - Hypothyroidism , unspecified
[2019-05-20] MEDS: ATORVASTATIN CA 10 MG TABLET (FP) PO SCH (21:45)
[2019-05-20] MEDS ORDERED: ACETAMINOPHEN 500 MG TABLET (FP) PO ONE (23:57)
[2019-05-21 06:25] LABS: INR 2.91 (0.83-1.09); PROTHROMBIN TIME (PATIENT) 34.7 SEC (9.7-13.0)
[2019-05-21 06:37] LABS: BASO % 0.9 % (0-2.0); EOS % 2.7 % (0-4.5); HEMATOCRIT 26.1 % (32.4-45.2); HEMOGLOBIN 9.1 GM/dL (10.7-15.3); LYMPH % 15.3 % (8-40); MCH 31.1 pg (25.7-33.7); MCHC 34.8 g/dl (32.0-36.0); MEAN CELL VOLUME 89.4 fl (80-96); MONO % 12.4 % (3.8-10.2); NEUT % 68.7 % (42.8-82.8); PLATELET COUNT 132 K/MM3 (134-434); RBC 2.92 M/mm3 (3.60-5.2); RDW 14.5 % (11.6-15.6); WHITE BLOOD COUNT 6.7 K/mm3 (4.0-10.0)
[2019-05-21 06:54] LABS: ALBUMIN 2.9 g/dl (3.4-5.0); BILIRUBIN,TOTAL 0.6 mg/dL (0.2-1); BLOOD UREA NITROGEN 37.8 mg/dL (7-18); CALCIUM 8.1 mg/dL (8.5-10.1); CREATININE 1.1 mg/dL (0.55-1.3); MAGNESIUM 1.9 mg/dL (1.8-2.4); PHOSPHOROUS 3.2 mg/dL (2.5-4.9); POTASSIUM 3.3 mmol/L (3.5-5.1); TOT PROT 6.4 g/dl (6.4-8.2)
[2019-05-21] MEDS ORDERED: ONDANSETRON 4 MG/2 ML VIAL IVPUSH ONE (10:29)
--- NOTE | 2019-05-21 10:44 | PN ---
Progress Note, Physician Chief Complaint: Ms Luanne Field says she is feeling worse today. Says she is having a lot more pain in her leg. Notes that even though she is feeling fine, her HR will elevated on the monitor. Had nausea this morning but says she has not had a bowel movement since . No cp or sob. - Current Medication List Current Medications: Active Medications Aspirin (Asa -) 81 mg PO DAILY [facility] Last Admin: 05/20/19 09:53 Dose: 81 mg Atorvastatin Calcium (Lipitor -) 10 mg PO HS [facility] Last Admin: 05/20/19 21:45 Dose: 10 mg Carvedilol (Coreg -) 6.25 mg PO BID [facility] Last Admin: 05/20/19 21:46 Dose: 6.25 mg Digoxin (Lanoxin -) 0.125 mg PO WEEKLY [facility] Diltiazem HCl (Cardizem Cd -) 240 mg PO BID [facility] Last Admin: 05/20/19 21:45 Dose: 240 mg Nitroglycerin (Nitrostat -) 0.6 mg SL DAILY PRN PRN Reason: FOR CHEST PAIN Non-Formulary Medication (Beclomethasone Dipropionate [Qvar ]) 8.7 gm IH BID [facility] Non-Formulary Medication (Levothyroxine [Synthroid -]) 175 mcg PO WEEKLY [facility] Ondansetron HCl (Zofran Injection) 4 mg IVPUSH ONCE ONE Stop: 05/21/19 10:30 Ranitidine HCl (Zantac -) 150 mg PO BID [facility] Last Admin: 05/20/19 21:45 Dose: 150 mg Spironolactone (Aldactone -) 25 mg PO DAILY [facility] - Objective Vital Signs: Vital Signs Temperature 37.1 C 05/20/19 01:34 Pulse Rate 72 05/20/19 13:30 Respiratory Rate 20 05/20/19 13:30 Blood Pressure 136/84 05/20/19 13:30 O2 Sat by Pulse Oximetry (%) 100 05/20/19 21:00 Constitutional: Yes: Well Nourished, No Distress, Calm Cardiovascular: Yes: Regular Rate and Rhythm, Murmur. No: Gallop, Rub Respiratory: Yes: Regular, CTA Bilaterally. No: Rales, Rhonchi, Wheezes Gastrointestinal: Yes: Normal Bowel Sounds, Soft. No: Distention, Tenderness Extremities: Yes: Other (hematoma darker today and slightly larger) Edema: No Labs: CBC, BMP 05/21/19 05:25 05/21/19 05:25 INR, PTT INR 2.91 (0.83-1.09) H 05/21/19 05:25 Problem List - Problems (1) Fall Code(s): W19.XXXA - UNSPECIFIED FALL, INITIAL ENCOUNTER Qualifiers: Encounter type: initial encounter Qualified Code(s): W19.XXXA - Unspecified fall, initial encounter (2) Hematoma Code(s): T14.8XXA - OTHER INJURY OF UNSPECIFIED BODY REGION, INITIAL ENCOUNTER (3) WILTON (acute kidney injury) Code(s): N17.9 - ACUTE KIDNEY FAILURE, UNSPECIFIED (4) Atrial fibrillation Code(s): I48.91 - UNSPECIFIED ATRIAL FIBRILLATION Qualifiers: Atrial fibrillation type: chronic Qualified Code(s): I48.2 - Chronic atrial fibrillation (5) CAD (coronary artery disease), autologous vein bypass graft Code(s): I25.810 - ATHEROSCLEROSIS OF CABG W/O ANGINA PECTORIS Qualifiers: Associated angina: without angina Qualified Code(s): I25.810 - Atherosclerosis of coronary artery bypass graft(s) without angina pectoris (6) COPD (chronic obstructive pulmonary disease) Code(s): J44.9 - CHRONIC OBSTRUCTIVE PULMONARY DISEASE, UNSPECIFIED Qualifiers: COPD type: unspecified COPD Qualified Code(s): J44.9 - Chronic obstructive pulmonary disease, unspecified (7) Diastolic CHF, chronic Code(s): I50.32 - CHRONIC DIASTOLIC (CONGESTIVE) HEART FAILURE (8) History of aortic valve replacement with bioprosthetic valve Code(s): Z95.4 - PRESENCE OF OTHER HEART-VALVE REPLACEMENT (9) History of mitral valve replacement with bioprosthetic valve Code(s): Z95.4 - PRESENCE OF OTHER HEART-VALVE REPLACEMENT (10) Hyperlipidemia Code(s): E78.5 - HYPERLIPIDEMIA, UNSPECIFIED Qualifiers: Hyperlipidemia type: Pure hypercholesterolemia (11) Hypertension Code(s): I10 - ESSENTIAL (PRIMARY) HYPERTENSION Qualifiers: Hypertension type: essential hypertension Qualified Code(s): I10 - Essential (primary) hypertension (12) Hypothyroidism Code(s): E03.9 - HYPOTHYROIDISM, UNSPECIFIED Qualifiers: Hypothyroidism type: unspecified Qualified Code(s): E03.9 - Hypothyroidism , unspecified Assessment/Plan (1) Fall Assessment/Plan: -PT consult -having worse pain in buttock today Code(s): W19.XXXA - UNSPECIFIED FALL, INITIAL ENCOUNTER Qualifiers: Encounter type: initial encounter Qualified Code(s): W19.XXXA - Unspecified fall, initial encounter (2) Hematoma Assessment/Plan: -evolving -darker today and slightly bigger -however pain only in area of buttock, no swelling/redness/pain in leg -will hold coumadin today -will consult general surgery to evaluate Code(s): T14.8XXA - OTHER INJURY OF UNSPECIFIED BODY REGION, INITIAL ENCOUNTER (3) WILTON (acute kidney injury) Assessment/Plan: -resolved Code(s): N17.9 - ACUTE KIDNEY FAILURE, UNSPECIFIED (4) Atrial fibrillation Assessment/Plan: -controlled -continue home regimen -holding coumadin Code(s): I48.91 - UNSPECIFIED ATRIAL FIBRILLATION Qualifiers: Atrial fibrillation type: chronic Qualified Code(s): I48.2 - Chronic atrial fibrillation (5) CAD (coronary artery disease), autologous vein bypass graft Assessment/Plan: -cardiology consulted -now with nausea which may be an anginal equivalent -will check cardiac profile Code(s): I25.810 - ATHEROSCLEROSIS OF CABG W/O ANGINA PECTORIS Qualifiers: Associated angina: without angina Qualified Code(s): I25.810 - Atherosclerosis of coronary artery bypass graft(s) without angina pectoris (6) COPD (chronic obstructive pulmonary disease) Assessment/Plan: -not in exacerbation -continue regimen Code(s): J44.9 - CHRONIC OBSTRUCTIVE PULMONARY DISEASE, UNSPECIFIED Qualifiers: COPD type: unspecified COPD Qualified Code(s): J44.9 - Chronic obstructive pulmonary disease, unspecified (7) Diastolic CHF, chronic Assessment/Plan: -not in exacerbation -stop IVF Code(s): I50.32 - CHRONIC DIASTOLIC (CONGESTIVE) HEART FAILURE (8) History of aortic valve replacement with bioprosthetic valve Assessment/Plan: -noted Code(s): Z95.4 - PRESENCE OF OTHER HEART-VALVE REPLACEMENT (9) History of mitral valve replacement with bioprosthetic valve Assessment/Plan: -noted Code(s): Z95.4 - PRESENCE OF OTHER HEART-VALVE REPLACEMENT (10) Hyperlipidemia Assessment/Plan: -continue statin Code(s): E78.5 - HYPERLIPIDEMIA, UNSPECIFIED Qualifiers: Hyperlipidemia type: Pure hypercholesterolemia (11) Hypertension Assessment/Plan: -controlled Code(s): I10 - ESSENTIAL (PRIMARY) HYPERTENSION Qualifiers: Hypertension type: essential hypertension Qualified Code(s): I10 - Essential (primary) hypertension (12) Hypothyroidism Assessment/Plan: -continue synthroid Code(s): E03.9 - HYPOTHYROIDISM, UNSPECIFIED Qualifiers: Hypothyroidism type: unspecified Qualified Code(s): E03.9 - Hypothyroidism , unspecified
[2019-05-21] MEDS: ASPIRIN 81 MG CHEWABLE TABLETS PO SCH (10:49)
[2019-05-21] MEDS: CARVEDILOL 6.25 MG TABLET (FP) PO SCH ×2 (10:49→21:41)
[2019-05-21] MEDS: SPIRONOLACTONE 25 MG TABLET (FP) PO SCH (10:49)
[2019-05-21] MEDS: RANITIDINE HCL 150 MG TABLET (FP) PO SCH ×2 (10:49→21:41)
[2019-05-21] MEDS ORDERED: POTASSIUM CHLORIDE TABS 20 MEQ TABLET.ER (FP) PO ONE (10:54)
[2019-05-21] MEDS ORDERED: ACETAMINOPHEN 325 MG TABLET (FP) ONE (11:18)
[2019-05-21] MEDS: ACETAMINOPHEN 325 MG TABLET (FP) PO PRN (12:00)
--- NOTE | 2019-05-21 16:25 | PN ---
Progress Note (short form) - Note Progress Note: 78 year old female admitted with a recent fall, causing a significant hematoma of the right buttock and posterior thigh. Known case of CAD/CABG, s/p aortic and mitral biprosthetic valve replacement, atrial fib. SSS, s/p PPM. HTN and HLD. C/o pain and discomfort over the right buttock and hematoma is tense and appears to have enlarged. No chest pain or discpmfort, no SOB or palpitations. Active Medications Generic Name Dose Route Start Last Admin Trade Name Freq PRN Reason Stop Dose Admin Acetaminophen 650 mg 05/21/19 15:57 Tylenol - PO Q4H PRN PAIN Aspirin 81 mg 05/20/19 10:00 05/21/19 10:49 Asa - PO 81 mg DAILY [facility] Administration Atorvastatin Calcium 10 mg 05/20/19 22:00 05/20/19 21:45 Lipitor - PO 10 mg HS [facility] Administration Carvedilol 6.25 mg 05/20/19 10:00 05/21/19 10:49 Coreg - PO 6.25 mg BID [facility] Administration Digoxin 0.125 mg 05/21/19 15:00 Lanoxin - PO MoTuWeThFrSa@1000 [facility] Diltiazem HCl 240 mg 05/20/19 10:00 05/21/19 10:49 Cardizem Cd - PO 240 mg BID [facility] Administration Levothyroxine Sodium 100 mcg/ 175 mcg 05/21/19 15:00 Levothyroxine Sodium 75 mcg PO DAILY@0700 [facility] Nitroglycerin 0.6 mg 05/20/19 03:53 Nitrostat - SL DAILY PRN FOR CHEST PAIN Ranitidine HCl 150 mg 05/20/19 10:00 05/21/19 10:49 Zantac - PO 150 mg BID [facility] Administration Spironolactone 25 mg 05/20/19 10:00 05/21/19 10:49 Aldactone - PO 25 mg DAILY [facility] Administration Last Vital Signs Temp Pulse Resp BP Pulse Ox 98.8 F 72 20 136/84 100 05/20/19 01:34 05/20/19 13:30 05/20/19 13:30 05/20/19 13:30 05/21/19 09:00 NECK: supple, no JVD, carotids 2+, faint radiation of murmur or bruit over the left carotid. HEART: PMI in the 5th ICS, no heaves or thrills. S1 variable, S2 split, SEMII/ at the 2nd rt. ICS ending in early systole. I/ decrescendo murmur at the apex, no diastolic murmur or gallop heard. LUNGS: Clear on auscultation. ABDOMEN: Soft nontender, no organomegaly or palpable masses. CBC, BMP 05/21/19 05:25 05/21/19 05:25 IMPRESSION: 1. Large Hematoma of the right buttock, extending to the right posterior thigh( Traumatic). 2. CAD/CABG. 3. Bioprosthetic AVR. 4. Bioprosthetic MVR. 5. Permanent atrial fib. with periods of rapid ventricular response. 6. PPM, with appropriate pacing. 7. Hypercholesterlemia. RECOMMENDATIONS: 1. Maintain INR around 2 if hematoma was to increase, D/C warfarin. 2. Surgical evaluation 3. Continue current medications. 4. Close f/u of INR and CBC.
[2019-05-21] MEDS: LEVOTHYROXINE 100 MCG, LEVOTHYROXINE 75 MCG PO SCH (17:21)
[2019-05-21] MEDS: DIGOXIN 0.125 MG TABLET (FP) PO SCH (17:26)
[2019-05-21] MEDS ORDERED: PT OWN MED DRAWER 7, Y5N ONE (17:54)
[2019-05-21] MEDS: ATORVASTATIN CA 10 MG TABLET (FP) PO SCH (21:40)
[2019-05-22] MEDS: LEVOTHYROXINE 100 MCG, LEVOTHYROXINE 75 MCG PO SCH (06:30)
[2019-05-22 06:48] LABS: INR 2.72 (0.83-1.09); PROTHROMBIN TIME (PATIENT) 32.4 SEC (9.7-13.0)
[2019-05-22 06:52] LABS: BASO % 0.5 % (0-2.0); EOS % 2.5 % (0-4.5); HEMATOCRIT 23.7 % (32.4-45.2); HEMOGLOBIN 8.4 GM/dL (10.7-15.3); MCH 31.3 pg (25.7-33.7); MCHC 35.3 g/dl (32.0-36.0); MEAN CELL VOLUME 88.6 fl (80-96); MEAN PLT VOLUME 8.8 fl (7.5-11.1); MONO % 12.3 % (3.8-10.2); NEUT % 70.7 % (42.8-82.8); PLATELET COUNT 143 K/MM3 (134-434); RBC 2.68 M/mm3 (3.60-5.2); RDW 14.5 % (11.6-15.6); WHITE BLOOD COUNT 7.4 K/mm3 (4.0-10.0)
[2019-05-22 07:05] LABS: BLOOD UREA NITROGEN 34.2 mg/dL (7-18); CALCIUM 8.3 mg/dL (8.5-10.1); PHOSPHOROUS 2.9 mg/dL (2.5-4.9); POTASSIUM 3.7 mmol/L (3.5-5.1)
[2019-05-22] MEDS: ASPIRIN 81 MG CHEWABLE TABLETS PO SCH (09:23)
[2019-05-22] MEDS: SPIRONOLACTONE 25 MG TABLET (FP) PO SCH (09:23)
[2019-05-22] MEDS: CARVEDILOL 6.25 MG TABLET (FP) PO SCH ×2 (09:23→21:54)
[2019-05-22] MEDS: RANITIDINE HCL 150 MG TABLET (FP) PO SCH ×2 (09:23→21:54)
[2019-05-22] MEDS ORDERED: PHYTONADIONE 10 MG/1 ML AMP SQ ONE (14:49)
--- NOTE | 2019-05-22 14:50 | PN ---
Progress Note, Physician Chief Complaint: Ms Luanne Field mainly complains about her diet today. She says she is not getting enough vegetables. Reluctant to answer but says that her leg is worsening, the bruising is elaina and much larger. However she says the pain is better controlled today and she is walking around. Denies cp, sob, n/v. - Current Medication List Current Medications: Active Medications Acetaminophen (Tylenol -) 650 mg PO Q4H PRN PRN Reason: PAIN Last Admin: 05/21/19 12:00 Dose: 650 mg Aspirin (Asa -) 81 mg PO DAILY [facility] Last Admin: 05/22/19 09:23 Dose: 81 mg Atorvastatin Calcium (Lipitor -) 10 mg PO HS [facility] Last Admin: 05/21/19 21:40 Dose: 10 mg Carvedilol (Coreg -) 6.25 mg PO BID [facility] Last Admin: 05/22/19 09:23 Dose: 6.25 mg Digoxin (Lanoxin -) 0.125 mg PO MoTuWeThFrSa@1000 [facility] Last Admin: 05/21/19 17:26 Dose: 0.125 mg Diltiazem HCl (Cardizem Cd -) 240 mg PO BID [facility] Last Admin: 05/22/19 09:23 Dose: 240 mg Levothyroxine Sodium 100 mcg/ (Levothyroxine Sodium 75 mcg) 175 mcg PO DAILY@ 0700 [facility] Last Admin: 05/22/19 06:30 Dose: 175 mcg Nitroglycerin (Nitrostat -) 0.6 mg SL DAILY PRN PRN Reason: FOR CHEST PAIN Phytonadione (Aqua Mephy[place] Injection -) 1 mg SQ ONCE ONE Stop: 05/22/19 14:50 Ranitidine HCl (Zantac -) 150 mg PO BID [facility] Last Admin: 05/22/19 09:23 Dose: 150 mg Spironolactone (Aldactone -) 25 mg PO DAILY [facility] Last Admin: 05/22/19 09:23 Dose: 25 mg - Objective Vital Signs: Vital Signs Temperature 36.6 C 05/22/19 10:00 Pulse Rate 82 05/22/19 10:00 Respiratory Rate 20 05/22/19 10:00 Blood Pressure 115/70 05/22/19 10:00 O2 Sat by Pulse Oximetry (%) 100 05/22/19 09:00 Constitutional: Yes: Well Nourished, No Distress, Calm Cardiovascular: Yes: Regular Rate and Rhythm. No: Gallop, Murmur, Rub Respiratory: Yes: Regular, CTA Bilaterally. No: Rales, Rhonchi, Wheezes Gastrointestinal: Yes: Normal Bowel Sounds, Soft. No: Distention, Tenderness Extremities: Yes: Other (ecchymosis on RLE with spreading) Edema: Yes Edema: LLE: 1+, RLE: 2+ Labs: CBC, BMP 05/22/19 05:30 05/22/19 05:30 INR, PTT INR 2.72 (0.83-1.09) H 05/22/19 05:30 Problem List - Problems (1) Fall Code(s): W19.XXXA - UNSPECIFIED FALL, INITIAL ENCOUNTER Qualifiers: Encounter type: initial encounter Qualified Code(s): W19.XXXA - Unspecified fall, initial encounter (2) Hematoma Code(s): T14.8XXA - OTHER INJURY OF UNSPECIFIED BODY REGION, INITIAL ENCOUNTER (3) WILTON (acute kidney injury) Code(s): N17.9 - ACUTE KIDNEY FAILURE, UNSPECIFIED (4) Atrial fibrillation Code(s): I48.91 - UNSPECIFIED ATRIAL FIBRILLATION Qualifiers: Atrial fibrillation type: chronic Qualified Code(s): I48.2 - Chronic atrial fibrillation (5) CAD (coronary artery disease), autologous vein bypass graft Code(s): I25.810 - ATHEROSCLEROSIS OF CABG W/O ANGINA PECTORIS Qualifiers: Associated angina: without angina Qualified Code(s): I25.810 - Atherosclerosis of coronary artery bypass graft(s) without angina pectoris (6) COPD (chronic obstructive pulmonary disease) Code(s): J44.9 - CHRONIC OBSTRUCTIVE PULMONARY DISEASE, UNSPECIFIED Qualifiers: COPD type: unspecified COPD Qualified Code(s): J44.9 - Chronic obstructive pulmonary disease, unspecified (7) Diastolic CHF, chronic Code(s): I50.32 - CHRONIC DIASTOLIC (CONGESTIVE) HEART FAILURE (8) History of aortic valve replacement with bioprosthetic valve Code(s): Z95.4 - PRESENCE OF OTHER HEART-VALVE REPLACEMENT (9) History of mitral valve replacement with bioprosthetic valve Code(s): Z95.4 - PRESENCE OF OTHER HEART-VALVE REPLACEMENT (10) Hyperlipidemia Code(s): E78.5 - HYPERLIPIDEMIA, UNSPECIFIED Qualifiers: Hyperlipidemia type: Pure hypercholesterolemia (11) Hypertension Code(s): I10 - ESSENTIAL (PRIMARY) HYPERTENSION Qualifiers: Hypertension type: essential hypertension Qualified Code(s): I10 - Essential (primary) hypertension (12) Hypothyroidism Code(s): E03.9 - HYPOTHYROIDISM, UNSPECIFIED Qualifiers: Hypothyroidism type: unspecified Qualified Code(s): E03.9 - Hypothyroidism , unspecified Assessment/Plan (1) Fall Assessment/Plan: -PT consulted -walked well with PT -says pain is well controlled Code(s): W19.XXXA - UNSPECIFIED FALL, INITIAL ENCOUNTER Qualifiers: Encounter type: initial encounter Qualified Code(s): W19.XXXA - Unspecified fall, initial encounter (2) Hematoma Assessment/Plan: -much larger and darker today -concerning because further drop in H/H -also increased swelling of the leg -pulses felt, not tender to movement or palpation -continue to monitor for compartment syndrome but no signs or symptoms currently -will give vitamin K 1mg SC now -recheck INR in am -suspect higher because she eats more dark green vegetables at home -surgery consulted Code(s): T14.8XXA - OTHER INJURY OF UNSPECIFIED BODY REGION, INITIAL ENCOUNTER (3) WILTON (acute kidney injury) Assessment/Plan: -resolved Code(s): N17.9 - ACUTE KIDNEY FAILURE, UNSPECIFIED (4) Atrial fibrillation Assessment/Plan: -controlled -continue home regimen -holding coumadin -give vitamin K as above Code(s): I48.91 - UNSPECIFIED ATRIAL FIBRILLATION Qualifiers: Atrial fibrillation type: chronic Qualified Code(s): I48.2 - Chronic atrial fibrillation (5) CAD (coronary artery disease), autologous vein bypass graft Assessment/Plan: -appreciate cardiology assistance -quiescent -continue current management Code(s): I25.810 - ATHEROSCLEROSIS OF CABG W/O ANGINA PECTORIS Qualifiers: Associated angina: without angina Qualified Code(s): I25.810 - Atherosclerosis of coronary artery bypass graft(s) without angina pectoris (6) COPD (chronic obstructive pulmonary disease) Assessment/Plan: -not in exacerbation -continue regimen Code(s): J44.9 - CHRONIC OBSTRUCTIVE PULMONARY DISEASE, UNSPECIFIED Qualifiers: COPD type: unspecified COPD Qualified Code(s): J44.9 - Chronic obstructive pulmonary disease, unspecified (7) Diastolic CHF, chronic Assessment/Plan: -not in exacerbation -stop IVF Code(s): I50.32 - CHRONIC DIASTOLIC (CONGESTIVE) HEART FAILURE (8) History of aortic valve replacement with bioprosthetic valve Assessment/Plan: -noted Code(s): Z95.4 - PRESENCE OF OTHER HEART-VALVE REPLACEMENT (9) History of mitral valve replacement with bioprosthetic valve Assessment/Plan: -noted Code(s): Z95.4 - PRESENCE OF OTHER HEART-VALVE REPLACEMENT (10) Hyperlipidemia Assessment/Plan: -continue statin Code(s): E78.5 - HYPERLIPIDEMIA, UNSPECIFIED Qualifiers: Hyperlipidemia type: Pure hypercholesterolemia (11) Hypertension Assessment/Plan: -controlled Code(s): I10 - ESSENTIAL (PRIMARY) HYPERTENSION Qualifiers: Hypertension type: essential hypertension Qualified Code(s): I10 - Essential (primary) hypertension (12) Hypothyroidism Assessment/Plan: -continue synthroid Code(s): E03.9 - HYPOTHYROIDISM, UNSPECIFIED Qualifiers: Hypothyroidism type: unspecified Qualified Code(s): E03.9 - Hypothyroidism , unspecified
--- NOTE | 2019-05-22 19:21 | PN ---
Progress Note (short form) - Note Progress Note: 78 year old female admitted with a recent fall, causing a significant hematoma of the right buttock and posterior thigh. Known case of CAD/CABG, s/p aortic and mitral biprosthetic valve replacement, atrial fib. SSS, s/p PPM. HTN and HLD. Still has pain and discomfort over the right buttock and hematoma is tense and has enlarged. No chest pain or SOB no palpitations. patient is not on warfarin. Active Medications Acetaminophen (Tylenol -) 650 mg PO Q4H PRN PRN Reason: PAIN Last Admin: 05/21/19 12:00 Dose: 650 mg Aspirin (Asa -) 81 mg PO DAILY [facility] Last Admin: 05/22/19 09:23 Dose: 81 mg Atorvastatin Calcium (Lipitor -) 10 mg PO HS [facility] Last Admin: 05/21/19 21:40 Dose: 10 mg Carvedilol (Coreg -) 6.25 mg PO BID [facility] Last Admin: 05/22/19 09:23 Dose: 6.25 mg Digoxin (Lanoxin -) 0.125 mg PO MoTuWeThFrSa@1000 [facility] Last Admin: 05/21/19 17:26 Dose: 0.125 mg Diltiazem HCl (Cardizem Cd -) 240 mg PO BID [facility] Last Admin: 05/22/19 09:23 Dose: 240 mg Levothyroxine Sodium 100 mcg/ (Levothyroxine Sodium 75 mcg) 175 mcg PO DAILY@ 0700 [facility] Last Admin: 05/22/19 06:30 Dose: 175 mcg Nitroglycerin (Nitrostat -) 0.6 mg SL DAILY PRN PRN Reason: FOR CHEST PAIN Ranitidine HCl (Zantac -) 150 mg PO BID [facility] Last Admin: 05/22/19 09:23 Dose: 150 mg Spironolactone (Aldactone -) 25 mg PO DAILY [facility] Last Admin: 05/22/19 09:23 Dose: 25 mg Last Vital Signs Temp Pulse Resp BP Pulse Ox 97.8 F 82 20 115/70 100 05/22/19 10:00 05/22/19 10:00 05/22/19 10:00 05/22/19 10:00 05/22/19 09:00 NECK: supple, no JVD, carotids 2+, faint radiation of murmur or bruit over the left carotid. HEART: PMI in the 5th ICS, no heaves or thrills. S1 variable, S2 split, SEMII/ at the 2nd rt. ICS ending in early systole. I/ decrescendo murmur at the apex, no diastolic murmur or gallop heard. LUNGS: Clear on auscultation. ABDOMEN: Soft nontender, no organomegaly or palpable masses. EXTREMITIES:RLE edema and eccymosis posterior thigh has significant hematoma. 1 + edema of the LLL Large and tense hematomaof the right buttock. CBC, BMP 05/22/19 05:30 05/22/19 05:30 IMPRESSION: 1. Large Hematoma of the right buttock, extending to the right posterior thigh( Traumatic). 2. CAD/CABG. 3. Bioprosthetic AVR. 4. Bioprosthetic MVR. 5. Permanent atrial fib. with periods of rapid ventricular response. 6. PPM, with appropriate pacing. 7. Hypercholesterlemia. RECOMMENDATIONS: 1. Surgical evaluation is pending 2. Continue current medications. 3. Close f/u of INR and CBC. 4. May require blood transfusion if HCT continues to drop.
[2019-05-22] MEDS: ATORVASTATIN CA 10 MG TABLET (FP) PO SCH (21:54)
[2019-05-23] MEDS: ACETAMINOPHEN 325 MG TABLET (FP) PO PRN ×3 (03:39→21:58)
[2019-05-23] MEDS: LEVOTHYROXINE 100 MCG, LEVOTHYROXINE 75 MCG PO SCH (06:13)
[2019-05-23 06:26] LABS: BASO % 0.6 % (0-2.0); EOS % 1.7 % (0-4.5); HEMOGLOBIN 8.4 GM/dL (10.7-15.3); LYMPH % 11.4 % (8-40); MCH 31.3 pg (25.7-33.7); MEAN CELL VOLUME 89.3 fl (80-96); MONO % 9.2 % (3.8-10.2); NEUT % 77.1 % (42.8-82.8); PLATELET COUNT 148 K/MM3 (134-434); RBC 2.69 M/mm3 (3.60-5.2); RDW 14.7 % (11.6-15.6); WHITE BLOOD COUNT 8.4 K/mm3 (4.0-10.0)
[2019-05-23 06:42] LABS: INR 2.02 (0.83-1.09)
[2019-05-23 06:48] LABS: BLOOD UREA NITROGEN 39.1 mg/dL (7-18); CREATININE 1.2 mg/dL (0.55-1.3); MAGNESIUM 1.8 mg/dL (1.8-2.4); PHOSPHOROUS 2.7 mg/dL (2.5-4.9); POTASSIUM 3.6 mmol/L (3.5-5.1)
--- NOTE | 2019-05-23 08:31 | PN ---
Teaching Attending Note Name of Resident: Dipika Villa ATTENDING PHYSICIAN STATEMENT I saw and evaluated the patient. I reviewed the resident's note and discussed the case with the resident. I agree with the resident's findings and plan as documented. SUBJECTIVE: Ms Luanne Field says she had pain overnight requiring tylenol but is better now. No cp, sob, n/v. OBJECTIVE: Last Vital Signs Temp Pulse Resp BP Pulse Ox 36.3 C L 64 22 H 107/54 L 100 05/23/19 06:00 05/23/19 06:00 05/23/19 06:00 05/23/19 06:00 05/22/19 21:00 Gen: nad Pulm: ctab w/o w/r/r CV: irreg irreg but rate controlled w/o m/r/g Abd: +bs, s/nt/nd Ext: RLE edema with ecchymosis, stabilized ASSESSMENT AND PLAN: (1) Fall Assessment/Plan: -PT consulted -continue PT Code(s): W19.XXXA - UNSPECIFIED FALL, INITIAL ENCOUNTER Qualifiers: Encounter type: initial encounter Qualified Code(s): W19.XXXA - Unspecified fall, initial encounter (2) Hematoma Assessment/Plan: -stable today -H/H also stabilized -continue to hold coumadin to promote hemostasis Code(s): T14.8XXA - OTHER INJURY OF UNSPECIFIED BODY REGION, INITIAL ENCOUNTER (3) WILTON (acute kidney injury) Assessment/Plan: -resolved Code(s): N17.9 - ACUTE KIDNEY FAILURE, UNSPECIFIED (4) Atrial fibrillation Assessment/Plan: -controlled -continue home regimen -holding coumadin -s/p vitamin K Code(s): I48.91 - UNSPECIFIED ATRIAL FIBRILLATION Qualifiers: Atrial fibrillation type: chronic Qualified Code(s): I48.2 - Chronic atrial fibrillation (5) CAD (coronary artery disease), autologous vein bypass graft Assessment/Plan: -appreciate cardiology assistance -quiescent -continue current management Code(s): I25.810 - ATHEROSCLEROSIS OF CABG W/O ANGINA PECTORIS Qualifiers: Associated angina: without angina Qualified Code(s): I25.810 - Atherosclerosis of coronary artery bypass graft(s) without angina pectoris (6) COPD (chronic obstructive pulmonary disease) Assessment/Plan: -not in exacerbation -continue regimen Code(s): J44.9 - CHRONIC OBSTRUCTIVE PULMONARY DISEASE, UNSPECIFIED Qualifiers: COPD type: unspecified COPD Qualified Code(s): J44.9 - Chronic obstructive pulmonary disease, unspecified (7) Diastolic CHF, chronic Assessment/Plan: -not in exacerbation -continue current management Code(s): I50.32 - CHRONIC DIASTOLIC (CONGESTIVE) HEART FAILURE (8) History of aortic valve replacement with bioprosthetic valve Assessment/Plan: -noted Code(s): Z95.4 - PRESENCE OF OTHER HEART-VALVE REPLACEMENT (9) History of mitral valve replacement with bioprosthetic valve Assessment/Plan: -noted Code(s): Z95.4 - PRESENCE OF OTHER HEART-VALVE REPLACEMENT (10) Hyperlipidemia Assessment/Plan: -continue statin Code(s): E78.5 - HYPERLIPIDEMIA, UNSPECIFIED Qualifiers: Hyperlipidemia type: Pure hypercholesterolemia (11) Hypertension Assessment/Plan: -controlled Code(s): I10 - ESSENTIAL (PRIMARY) HYPERTENSION Qualifiers: Hypertension type: essential hypertension Qualified Code(s): I10 - Essential (primary) hypertension (12) Hypothyroidism Assessment/Plan: -continue synthroid Code(s): E03.9 - HYPOTHYROIDISM, UNSPECIFIED Qualifiers: Hypothyroidism type: unspecified Qualified Code(s): E03.9 - Hypothyroidism , unspecified (13) Acute blood loss anemia -stabilized -secondary to fall and hematoma Problem List - Problems (1) Fall Code(s): W19.XXXA - UNSPECIFIED FALL, INITIAL ENCOUNTER Qualifiers: Encounter type: initial encounter Qualified Code(s): W19.XXXA - Unspecified fall, initial encounter (2) Hematoma Code(s): T14.8XXA - OTHER INJURY OF UNSPECIFIED BODY REGION, INITIAL ENCOUNTER (3) WILTON (acute kidney injury) Code(s): N17.9 - ACUTE KIDNEY FAILURE, UNSPECIFIED (4) Atrial fibrillation Code(s): I48.91 - UNSPECIFIED ATRIAL FIBRILLATION Qualifiers: Atrial fibrillation type: chronic Qualified Code(s): I48.2 - Chronic atrial fibrillation (5) CAD (coronary artery disease), autologous vein bypass graft Code(s): I25.810 - ATHEROSCLEROSIS OF CABG W/O ANGINA PECTORIS Qualifiers: Associated angina: without angina Qualified Code(s): I25.810 - Atherosclerosis of coronary artery bypass graft(s) without angina pectoris (6) COPD (chronic obstructive pulmonary disease) Code(s): J44.9 - CHRONIC OBSTRUCTIVE PULMONARY DISEASE, UNSPECIFIED Qualifiers: COPD type: unspecified COPD Qualified Code(s): J44.9 - Chronic obstructive pulmonary disease, unspecified (7) Diastolic CHF, chronic Code(s): I50.32 - CHRONIC DIASTOLIC (CONGESTIVE) HEART FAILURE (8) History of aortic valve replacement with bioprosthetic valve Code(s): Z95.4 - PRESENCE OF OTHER HEART-VALVE REPLACEMENT (9) History of mitral valve replacement with bioprosthetic valve Code(s): Z95.4 - PRESENCE OF OTHER HEART-VALVE REPLACEMENT (10) Hyperlipidemia Code(s): E78.5 - HYPERLIPIDEMIA, UNSPECIFIED Qualifiers: Hyperlipidemia type: Pure hypercholesterolemia (11) Hypertension Code(s): I10 - ESSENTIAL (PRIMARY) HYPERTENSION Qualifiers: Hypertension type: essential hypertension Qualified Code(s): I10 - Essential (primary) hypertension (12) Hypothyroidism Code(s): E03.9 - HYPOTHYROIDISM, UNSPECIFIED Qualifiers: Hypothyroidism type: unspecified Qualified Code(s): E03.9 - Hypothyroidism , unspecified
[2019-05-23] MEDS: SPIRONOLACTONE 25 MG TABLET (FP) PO SCH (09:30)
[2019-05-23] MEDS: DIGOXIN 0.125 MG TABLET (FP) PO SCH (09:30)
[2019-05-23] MEDS: CARVEDILOL 6.25 MG TABLET (FP) PO SCH ×2 (09:30→21:51)
[2019-05-23] MEDS: RANITIDINE HCL 150 MG TABLET (FP) PO SCH ×2 (09:30→21:49)
[2019-05-23] MEDS: ASPIRIN 81 MG CHEWABLE TABLETS PO SCH (09:30)
--- NOTE | 2019-05-23 10:39 | PN ---
Physical Exam: SUBJECTIVE: Patient seen and examined. Seen said she was in pain yesterday. Tylenol took time to kick in after she asked. Hematoma spread appears to have stabilized. OBJECTIVE: Vital Signs Period Temp Pulse Resp BP Sys/Agudelo Pulse Ox Last 24 Hr 97.4 F-97.6 F 64-689 16-22 107-121/45-65 100 Vital Signs Temp 97.4 F L 05/23/19 06:00 Pulse 66 05/23/19 09:30 Resp 22 H 05/23/19 06:00 BP 107/54 L 05/23/19 06:00 Pulse Ox 100 05/22/19 21:00 Intake & Output 05/22/19 05/22/19 05/23/19 11:59 23:59 11:59 Intake Total 180 550 Balance 180 550 Intake: Oral 180 550 Other: Voiding Method Toilet Toilet # Unmeasured Voids Void 1 1 1 Bowel Movement No No # Bowel Movements 1 GENERAL: The patient is awake, alert, and fully oriented, in no acute distress having breakfast. HEAD: Normal with no signs of trauma. EYES: PERRL, extraocular movements intact, ENT: moist mucous membranes. LUNGS: Breath sounds equal, clear to auscultation bilaterally HEART: iregular, S1, S2, systolic murmur RSB 3/6, Hendrum 2/6 ABDOMEN: Soft, nontender, nondistended, normoactive bowel sounds EXTREMITIES: edema R knee NEUROLOGICAL: Cranial nerves II through XII grossly intact. Normal speech, gait not observed. SKIN: Purplish colored hematoma spreading from buttock /thigh on righ anteriorly into mid thigh medially, Posterior thigh above knee. No skin ulceration. Warm around buttock, not tense Laboratory Results - last 24 hr 05/23/19 05/23/19 05/23/19 05:05 05:05 05:05 WBC 8.4 RBC 2.69 L Hgb 8.4 L Hct 24.0 L MCV 89.3 MCH 31.3 MCHC 35.0 RDW 14.7 Plt Count 148 MPV 9.0 Absolute Neuts (auto) 6.5 Neutrophils % 77.1 Lymphocytes % 11.4 Monocytes % 9.2 Eosinophils % 1.7 Basophils % 0.6 Nucleated RBC % 0 PT with INR 24.00 H INR 2.02 H Sodium 132 L Potassium 3.6 Chloride 98 Carbon Dioxide 26 Anion Gap 8 BUN 39.1 H Creatinine 1.2 Est GFR (CKD-EPI)AfAm 49.78 Est GFR (CKD-EPI)NonAf 42.95 Random Glucose 110 H Calcium 8.0 L Phosphorus 2.7 Magnesium 1.8 Active Medications Generic Name Dose Route Start Last Admin Trade Name Freq PRN Reason Stop Dose Admin Acetaminophen 650 mg 05/21/19 15:57 05/23/19 03:39 Tylenol - PO 650 mg Q4H PRN Administration PAIN Aspirin 81 mg 05/20/19 10:00 05/23/19 09:30 Asa - PO 81 mg DAILY JO-ANN Administration Atorvastatin Calcium 10 mg 05/20/19 22:00 05/22/19 21:54 Lipitor - PO 10 mg HS JO-ANN Administration Carvedilol 6.25 mg 05/20/19 10:00 05/23/19 09:30 Coreg - PO 6.25 mg BID JO-ANN Administration Digoxin 0.125 mg 05/21/19 15:00 05/23/19 09:30 Lanoxin - PO 0.125 mg MoTuWeThFrSa@1000 JO-ANN Administration Diltiazem HCl 240 mg 05/20/19 10:00 05/23/19 09:30 Cardizem Cd - PO 240 mg BID JO-ANN Administration Levothyroxine Sodium 100 mcg/ 175 mcg 05/21/19 15:00 05/23/19 06:13 Levothyroxine Sodium 75 mcg PO 175 mcg DAILY@0700 JO-ANN Administration Nitroglycerin 0.6 mg 05/20/19 03:53 Nitrostat - SL DAILY PRN FOR CHEST PAIN Ranitidine HCl 150 mg 05/20/19 10:00 05/23/19 09:30 Zantac - PO 150 mg BID JO-ANN Administration Spironolactone 25 mg 05/20/19 10:00 05/23/19 09:30 Aldactone - PO 25 mg DAILY JO-ANN Administration Ambulatory Orders Albuterol Sulfate [Proair Hfa -] 1 - 2 inh PO PRN PRN 05/28/12 Cholecalciferol (Vitamin D3) [Vitamin D] 1,000 unit PO DAILY 05/28/12 Digoxin [Lanoxin -] 0.125 mg PO WEEKLY 05/28/12 Furosemide [Lasix -] 40 mg PO DAILY 05/28/12 Levothyroxine [Synthroid -] 175 mcg PO WEEKLY 05/28/12 Multivits W-Fe,Other Min/Lut [Centrum Silver Ultra Women Tab] 1 each PO DAILY Atorvastatin Calcium [Lipitor] 10 mg PO HS 06/24/13 Ranitidine HCl [Zantac] 150 mg PO BID 06/24/13 Acetaminophen [Tylenol] 650 mg PO PRN PRN 08/19/15 Aspirin [ASA -] 81 mg PO DAILY 08/19/15 Beclomethasone Dipropionate [Qvar ] 8.7 gm IH BID 08/19/15 Potassium Chloride [Klor-Con M20] 20 meq PO BID 08/19/15 Warfarin Sodium [Coumadin] 4 mg PO DAILY 08/19/15 Diltiazem Cd [Cardizem Cd -] 240 mg PO BID #60 cap.cd.24h 09/07/15 Aclidinium Blue [Tudorza -] 1 puff IH BID #1 inhaler 01/28/17 Metolazone [Zaroxolyn -] 2.5 mg PO Q2D@1000 #30 tablet 01/28/17 Spironolactone [Aldactone -] 25 mg PO DAILY #30 tablet 01/28/17 Carvedilol 6.25 mg PO BID 05/20/19 Nitroglycerin Sublingual [Nitrostat -] 0.6 mg SL DAILY PRN 05/20/19 Current Medications Acetaminophen (Tylenol -) 650 mg PO Q4H PRN PRN Reason: PAIN Last Admin: 05/23/19 13:41 Dose: 650 mg Atorvastatin Calcium (Lipitor -) 10 mg PO HS FOR[facility], [facility] Last Admin: 05/22/19 21:54 Dose: 10 mg Carvedilol (Coreg -) 6.25 mg PO BID [facility], [facility]1983 Last Admin: 05/23/19 09:30 Dose: 6.25 mg Digoxin (Lanoxin -) 0.125 mg PO MoTuWeThFrSa@1000 [facility], [facility]1983 Last Admin: 05/23/19 09:30 Dose: 0.125 mg Diltiazem HCl (Cardizem Cd -) 240 mg PO BID [facility], [facility]1983 Last Admin: 05/23/19 09:30 Dose: 240 mg Levothyroxine Sodium 100 mcg/ (Levothyroxine Sodium 75 mcg) 175 mcg PO DAILY@ 0700 [facility], [facility] Last Admin: 05/23/19 06:13 Dose: 175 mcg Nitroglycerin (Nitrostat -) 0.6 mg SL DAILY PRN PRN Reason: FOR CHEST PAIN Polyethylene Glycol (Miralax (For Daily Use) -) 17 gm PO BID [facility], [facility] Ranitidine HCl (Zantac -) 150 mg PO BID [facility], [facility]1983 Last Admin: 05/23/19 09:30 Dose: 150 mg Spironolactone (Aldactone -) 25 mg PO DAILY [facility], [facility] Last Admin: 05/23/19 09:30 Dose: 25 mg ECHO: ASSESSMENT/PLAN: 78F of pmh of Afib s/p failed MAZE(on coumadin), CAD s/p CABG, HF, bioprosethetic MVR(2015, [employer] #[id number]), bioprosthetic AVR(2015, [employer] # [id number]), pacemaker(2018, [employer] #[id number]), b/l knee pain, hypothyroidism presents to [facility]ED after fall. # Fall -Likely mechanical fall - CT head negative (pt on coumadin) -Carotid duplex-With 60% stenosis # R hip hematoma -s/p vit K x1 dose - serial examinations -Could be concerning for compartment syndrome -Expanded over the weekend with H/H now stable - Seen by surgery, conservative mx encouraged- resolution will take some time -Pt to lay on L side side to elevate R hip above level of heart - Pt encouraged to change position frequently -Coumadin stopped x 2 days - Cont to hold coumadin, NSAIDs, ASA -PT/PTT, CBC daily -PT # Afib w/rvr - in ED on admission -Pt currently rate controlled -Pt was on coumadin, now held) > troponin <0.02 x2 > EKG -Pt with PPM for failed MAZE, initially thought to be LBBB on admission - cardiology consult -- Dr Nagy- appears order was entered in error for Dr Fu -Cont coreg #S/p CABG -Hold ASA, cont coreg, lipitor # CHF - - digoxin -nl -Pt on spironolactone, coreg - echo -On gentle hydration -Lasix on hold # [place]ILTON - hold lasix, cont spironolactone - encourage PO intake -Gentle hydration # Positive UA -Unable to get a hx of UTI -leukocytosis, WBC(17.4) -Positive UA-nitrites, LE - CXR -negative - Will hold Ceftriaxone for now and re-evaluate # hypothyroidism - cw home levothyroxine #OLD On Home Qvar, hold albuterol with episode of afib w/rvr Cont to monitor Cont ranitidine Hold off chemical PPx Unable to use SCDs with leg swelling and hematoma, encourage ambulation Visit type - Emergency Visit Emergency Visit: Yes ED Registration Date: 05/20/19 Care time: The patient presented to the Emergency Department on the above date and was hospitalized for further evaluation of their emergent condition. - New Patient This patient is new to me today: No - Critical Care Critical Care patient: No - Discharge Referral Referred to [facility] No ATTENDING PHYSICIAN STATEMENT I saw and evaluated the patient. I reviewed the resident's note and discussed the case with the resident. I agree with the resident's findings and plan as documented. SUBJECTIVE: OBJECTIVE: ASSESSMENT AND PLAN:
--- NOTE | 2019-05-23 11:31 | CONS ---
DATE OF CONSULTATION: DATE OF DICTATION: 05/20/2019 CARDIOLOGY CONSULTATION CONSULTATION REQUESTED BY: Ye Calix MD CHIEF COMPLAINT: History of a fall. The patient is a 78-year-old female with history of coronary artery disease, status post CABG, history of bioprosthetic mitral and aortic valve replacement in 2014, maze procedure, status post permanent pacemaker for sick sinus syndrome, atrial fibrillation, hypertension, hypertensive cardiovascular disease, congestive heart failure, hypothyroidism. Patient fell on a concrete step in a parking lot, fell on her right hip, developed a large painful hematoma. She denies having loss of consciousness, no history of dizziness, no history of chest pain or discomfort, no history of palpitations. No history of cough or expectoration. PAST HISTORY: As mentioned in the history of present illness SURGICAL HISTORY: 1. Status post total abdominal hysterectomy. 2. History of bioprosthetic mitral and aortic valve replacement. 3. Status post double-vessel coronary artery bypass grafting. 4. Status post maze procedure. SOCIAL HISTORY: , no history of smoking, occasional social drink. FAMILY HISTORY: Mother apparently of a cerebrovascular accident and had coronary artery disease. Otherwise noncontributory. ALLERGIES: None reported. CURRENT MEDICATION: 1. Levothyroxine 175 mcg p.o. daily. 2. QVAR 1 inhalation b.i.d. 3. Warfarin 4 mg p.o. daily. 4. Carvedilol 6.25 mg p.o. b.i.d. 5. Diltiazem 240 mg p.o. b.i.d. 6. Lanoxin 0.125 mg p.o. daily. 7. Zantac 150 mg p.o. b.i.d. 8. Atorvastatin 10 mg p.o. daily. 9. Spironolactone 25 mg p.o. daily. 10. Nitrostat 0.4 mg sublingually p.r.n. for chest discomfort. 11. Aspirin 81 mg p.o. daily. REVIEW OF SYSTEMS: Constitutional: No history of chills, fever or night sweats. No history of unintentional weight loss. HEENT: No history of headaches, denies having diplopia, history of glaucoma and detached retina. No history of epistaxis or hoarseness. No history of tinnitus or deafness. Cardiovascular: See history of present illness. Respiratory: No history of recent cough, expectoration or hemoptysis. There is history of bronchial asthma. Gastrointestinal: History of diverticulosis, no history of nausea, vomiting, melena or hematemesis. Neurological: No history of seizures or syncope, no history of focal weakness. Endocrine: No history of excessive thirst, no history of intolerance to cold or warm weather. Musculoskeletal: No history of recent myalgias or arthralgias. Genitourinary: No history of dysuria, frequency or hematuria. Hematological: No history of anemia, ecchymosis or bleeding. PHYSICAL EXAMINATION:General: A 78-year-old female with mild distress, no pallor, cyanosis, clubbing or jaundice. Vital Signs: Blood pressure 136/84 mmHg. Pulse 72 beats per minute and regular. Temperature 98.8 degrees Fahrenheit. Respirations were 20 per minute. Neck: Supple, no jugular venous distention, carotids were 2+, upstrokes were normal, no bruits were heard and no thyromegaly was present. Heart: No heaves or thrills, S1 and S2 were normal, ejection systolic murmur grade 2/6 was heard at the 2nd right intercostal space, no diastolic murmur or gallops were heard. Lungs: Clear on auscultation. Abdomen: Soft, obese and nontender. No hepatosplenomegaly or palpable masses were felt. Extremities: No calf tenderness or dependent edema. Pulses were equal. LABORATORY DATA: CBC: WBC count 11,300. Hemoglobin was 10 g per DL. Platelet count was 162,000. Chemistry: Sodium 136, potassium 4.6, chloride 101, CO2 of 28 mmol per L. BUN was 44.8, creatinine 1.7 mg per dL. Random glucose was 139 mg per dL. Calcium was 8.8 mg per dL. CK was 99 and 86, troponins were 0.02 on 2 occasions and less than 0.02. ECG dated May 19, 2019: Atrial fibrillation with frequent ventricular paced complexes. Nonspecific ST abnormalities. Echocardiogram, May 20, 2019: Interpretation Summary: 1. There is mild concentric left ventricular hypertrophy. Ejection fraction 55 % to 60%. 2. Left atrium is mildly dilated. 3. Prosthetic mitral valve is well seated. 4. Mean gradient across the mitral valve is 7 mm. 5. There is mild mitral regurgitation. 6. There is left ventricular intracavitary gradient peak at 31 mmHg. 7. There is mild to moderate tricuspid regurgitation. 8. Suspect bioprosthetic aortic valve versus moderate to severe aortic valve sclerosis. 9. Mild aortic regurgitation. 10. Mean transaortic valve gradient at 16 mmHg, mildly elevated. 11. There is no pericardial effusion. Carotid Doppler ultrasound: Impression: Moderate atherosclerotic disease with borderline significant stenoses of both internal carotid arteries. Clinical correlation and followup recommended. Please see above discussion. IMPRESSION: 1. History of fall resulting in a moderate to large hematoma involving the right gluteal area. 2. Coronary artery disease, status post coronary artery bypass grafting. 3. Sick sinus syndrome. Status post permanent pacemaker. 4. Status post bioprosthetic mitral valve replacement. 5. Status post bioprosthetic aortic valve replacement. 6. Status post maze procedure. 7. Hypertension, hypertensive cardiovascular disease. 8. History of left ventricular diastolic dysfunction. 9. Atrial fibrillation. 10. Carotid artery disease. 11. History of bronchial asthma. RECOMMENDATIONS: 1. Close followup of the size of hematoma. 2. Serial CBCs. 3. Continue current cardiac medications. 4. Close followup of INR. PROGNOSIS: Guarded. Thank you for your referral. KESHA CHIN M.D. [id number] MTDD
--- NOTE | 2019-05-23 12:33 | CONSULT ---
Consult Consult Specialty:: General Surgery Referred by:: Naomi Calix Reason for Consultation:: right hip hematoma - History of Present Illness Chief Complaint: right hip pain after fall, bruising History of Present Illness: 78yo F with multiple medical problems including HTN, HLD, CAD, afib on coumadin (after failed MAZE, done with CABGx2, AVR, MVR with bioprosthetics), and s/p pacemaker, was cleaning off some debris from her car in the rain while in a parking lot on , when she bumped her foot into a curbstone on the ground , and fell, striking her right hip and elbow on the ground. She initially went home, but then came in because she knew being on coumadin that she should be checked out. She developed significant bruising over her right hip, extending down the lateral thigh and around onto her groin and buttock, with a firm, tender area over the most lateral prominence. Her INR was therapeutic at 2.3, wbc was initially 17 which has since decreased to normal, and she was mildly dehydrated with Hb 11.7, now stable at 8.4. UA appeared positive, but she is asymptomatic, and no culture was sent. She had tests including head CT, carotid dopplers and echo, and hip XR showed no fracture or dislocation. There is no CT or US of the hematoma, though it was outlined and the bruising has spread some, but stabilized per the medical team. She was admitted to medicine, and coumadin has been held though aspirin was continued. Surgery was asked to assess. She is seen sitting up in chair in her room, and examined sitting and standing before getting back to bed. She reports her pain is still present, though manageable, and she has had trouble lying up on her left side to elevate the right hip. Right leg is a bit more swollen than the left, all the way down. She can walk, but is a little unsteady and better with assistance right now. She lives alone. She also notes a small area of slight bruising on the inside of her left ankle, with some local tenderness, and her right elbow has a dressing on it. She denies dizziness or headache around the time of the fall, or recently. INR is 2.02 today; vitamin K was given last night. PTT has not been checked. - History Source History Provided By: Patient Limitations to Obtaining History: No Limitations - Past Medical History Cardio/Vascular: Yes: AFIB, CAD, CHF, HTN, Hyperlipdemia, Other (PROSTHETIC HEART VALVES) Pulmonary: Yes: COPD Reproductive: Yes: Postmenopausal Musculoskeletal: Yes: Osteoarthritis Endocrine: Yes: Hypothyroidism - Past Surgical History Past Surgical History: Yes: Arthrosocopy (bilateral knees), CABG (x2 w/MAZE and valves), Cholecystectomy, Hysterectomy, Permanent Pacemaker, Valve Replacement ( aortic and mitral, bioprosthetics) - Alcohol/Substance Use Hx Alcohol Use: Yes (occasional) History of Substance Use: reports: None - Smoking History Smoking history: Never smoked Have you smoked in the past 12 months: No - Social History Usual Living Arrangement: Alone ADL: Independent 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 [employer] Home Medications - Allergies Allergies/Adverse Reactions: Allergies Allergy/AdvReac Type Severity Reaction Status Date / Time No Known Allergies Allergy Verified 05/19/19 17:45 - Home Medications Home Medications: Ambulatory Orders Albuterol Sulfate [Proair Hfa -] 1 - 2 inh PO PRN PRN 05/28/12 Cholecalciferol (Vitamin D3) [Vitamin D] 1,000 unit PO DAILY 05/28/12 Digoxin [Lanoxin -] 0.125 mg PO WEEKLY 05/28/12 Furosemide [Lasix -] 40 mg PO DAILY 05/28/12 Levothyroxine [Synthroid -] 175 mcg PO WEEKLY 05/28/12 Multivits W-Fe,Other Min/Lut [Centrum Silver Ultra Women Tab] 1 each PO DAILY Atorvastatin Calcium [Lipitor] 10 mg PO HS 06/24/13 Ranitidine HCl [Zantac] 150 mg PO BID 06/24/13 Acetaminophen [Tylenol] 650 mg PO PRN PRN 08/19/15 Aspirin [ASA -] 81 mg PO DAILY 08/19/15 Beclomethasone Dipropionate [Qvar ] 8.7 gm IH BID 08/19/15 Potassium Chloride [Klor-Con M20] 20 meq PO BID 08/19/15 Warfarin Sodium [Coumadin] 4 mg PO DAILY 08/19/15 Diltiazem Cd [Cardizem Cd -] 240 mg PO BID #60 cap.cd.24h 09/07/15 Aclidinium [place] [Tudorza -] 1 puff IH BID #1 inhaler 01/28/17 Metolazone [Zaroxolyn -] 2.5 mg PO Q2D@1000 #30 tablet 01/28/17 Spironolactone [Aldactone -] 25 mg PO DAILY #30 tablet 01/28/17 Carvedilol 6.25 mg PO BID 05/20/19 Nitroglycerin Sublingual [Nitrostat -] 0.6 mg SL DAILY PRN 05/20/19 Family Disease History - Family Disease History Family Disease History: Heart Disease: Father Review of Systems - Review of Systems Constitutional: denies: Chills, Fever Eyes: denies: Blurred Vision, Recent Change in Vision HENT: denies: Difficult Swallowing, Throat Pain Neck: denies: Swollen Glands, Tenderness Cardiovascular: denies: Chest Pain, Palpitations Respiratory: denies: Cough, SOB Gastrointestinal: reports: Constipation (first few days, but having BMs now in hospital). denies: Abdominal Pain, Diarrhea, Nausea, Vomiting Genitourinary: denies: Burning, Dysuria Musculoskeletal: reports: Joint Pain (with hpi). denies: Back Pain Integumentary: reports: Bruising (with hpi), Lump (with hpi). denies: Rash Neurological: denies: Dizziness, Headache Hematology/Lymphatic: reports: Easily Bruised Psychiatric: denies: Anxiety, Depression Physical Exam Vital Signs: Vital Signs Temperature 97.4 F L 05/23/19 06:00 Pulse Rate 66 05/23/19 09:30 Respiratory Rate 22 H 05/23/19 06:00 Blood Pressure 107/54 L 05/23/19 06:00 O2 Sat by Pulse Oximetry (%) 100 05/23/19 09:00 Constitutional: Yes: Well Nourished, No Distress, Calm Eyes: Yes: Conjunctiva Clear, EOM Intact HENT: Yes: Atraumatic, Normocephalic Neck: Yes: Supple, Trachea Midline Cardiovascular: Yes: Pulse Irregular, Murmur (systolic). No: Bradycardia, Tachycardia Respiratory: Yes: Regular, CTA Bilaterally Gastrointestinal: Yes: Normal Bowel Sounds, Soft. No: Distention, Tenderness ...Rectal Exam: Yes: Deferred Renal/: No: CVA Tenderness - Left, CVA Tenderness - Right Musculoskeletal: No: Joint Stiffness, Joint Swelling Extremities: No: Cool, Cyanosis Edema: Yes Edema: RLE: 1+ (lower leg through thigh/hip) Peripheral Pulses WNL: Yes Integumentary: Yes: Bruising (extensive over right hip, extending down lateral thigh, around to groin/perineal area; focal firm lump over right hip laterally ~ 10 x 20 cm, consistent with hematoma, overlying skin deep purple, but not open or necrotic), Other (dressing intact on right elbow (not removed)). No: Rash Neurological: Yes: Alert, Oriented Psychiatric: Yes: Alert, Oriented Labs: CBC, BMP 05/23/19 05:05 05/23/19 05:05 CMP Sodium 132 mmol/L (136-145) L 05/23/19 05:05 Potassium 3.6 mmol/L (3.5-5.1) 05/23/19 05:05 Chloride 98 mmol/L (98-107) 05/23/19 05:05 Carbon Dioxide 26 mmol/L (21-32) 05/23/19 05:05 Anion Gap 8 MMOL/L (8-16) 05/23/19 05:05 BUN 39.1 mg/dL (7-18) H 05/23/19 05:05 Creatinine 1.2 mg/dL (0.55-1.3) 05/23/19 05:05 Est GFR (CKD-EPI)AfAm 49.78 05/23/19 05:05 Est GFR (CKD-EPI)NonAf 42.95 05/23/19 05:05 POC Glucometer 145 UNITS (80-120) 05/19/19 22:50 Random Glucose 110 mg/dL (74-106) H 05/23/19 05:05 Calcium 8.0 mg/dL (8.5-10.1) L 05/23/19 05:05 Phosphorus 2.7 mg/dL (2.5-4.9) 05/23/19 05:05 Magnesium 1.8 mg/dL (1.8-2.4) 05/23/19 05:05 Total Bilirubin 0.6 mg/dL (0.2-1) 05/21/19 05:25 AST 18 U/L (15-37) 05/21/19 05:25 ALT 16 U/L (13-61) 05/21/19 05:25 Alkaline Phosphatase 69 U/L (45-117) 05/21/19 05:25 Creatine Kinase 90 U/L (26-192) 05/21/19 11:06 Troponin I < 0.02 ng/ml (0.00-0.05) 05/21/19 11:06 B-Natriuretic Peptide 5949.4 pg/ml (5-450) H 05/20/19 06:15 Total Protein 6.4 g/dl (6.4-8.2) 05/21/19 05:25 Albumin 2.9 g/dl (3.4-5.0) L 05/21/19 05:25 TSH 1.45 uIU/ml (0.358-3.74) 05/20/19 06:15 INR, PTT INR 2.02 (0.83-1.09) H 05/23/19 05:05 Urine Test Results Urine Color Yellow 05/20/19 09:45 Urine Appearance Clear 05/20/19 09:45 Urine pH 5.5 (5.0-8.0) 05/20/19 09:45 Ur Specific [place] 1.020 (1.010-1.035) 05/20/19 09:45 Urine Protein Trace (NEGATIVE) 05/20/19 09:45 Urine Glucose (UA) Negative (NEGATIVE) 05/20/19 09:45 Urine Ketones Negative (NEGATIVE) 05/20/19 09:45 Urine Blood Negative (NEGATIVE) 05/20/19 09:45 Urine Nitrite Positive (NEGATIVE) H 05/20/19 09:45 Urine Bilirubin Negative (NEGATIVE) 05/20/19 09:45 Ur Leukocyte Esterase 2+ (NEGATIVE) H 05/20/19 09:45 Imaging - Results X-ray: Report Reviewed, Image Reviewed (hip XR reviewed - no fracture or dislocation) Cat Scan: Report Reviewed (head CT noted with no acute findings) Problem List - Problems (1) Traumatic hematoma of right hip Assessment/Plan: large hematoma at right hip, with extensive bruising, mostly local and dependent into adjacent tissues overlying skin at firm area/lump/hematoma itself is deep purple, with no open area or bonny necrosis or eschar this may take months to resolve, and elevation of the affected area would be beneficial, as able pt to lie on left side/hip (down) when in bed as much as possible, to keep right hip higher than heart also, can elevate foot of bed with head down flat while sleeping to help with leg edema warm compresses (not directly on skin) 15 mins/time, every few hours as possible - can encourage local circulation to facilitate resorption avoid NSAIDs and hold coumadin as long as possible ok to continue ambulating as able, avoid sitting for long periods of time avoid direct pressure on site as much as possible avoid falling or subsequent trauma as long as the hematoma remains uninfected and beneath intact skin, hopefully it will resolve slowly over time and not require intervention may take months to fully resorb will need close followup with PMD to monitor site and skin if skin does necrose, slough or turn to eschar - she may need debridement of the hematoma to allow healing, but resulting wound could be large and require complex care discussed with Dr. Calix Thank you for the opportunity to participate in the care of this patient. Code(s): S70.01XA - CONTUSION OF RIGHT HIP, INITIAL ENCOUNTER Qualifiers: Encounter type: initial encounter Qualified Code(s): S70.01XA - Contusion of right hip, initial encounter (2) Fall from bumping against object as cause of accidental injury Code(s): W18.00XA - STRIKING AGAINST UNSP OBJECT W SUBSEQUENT FALL, INIT ENCNTR (3) Right hip pain Code(s): M25.551 - PAIN IN RIGHT HIP (4) Atrial fibrillation Code(s): I48.91 - UNSPECIFIED ATRIAL FIBRILLATION Qualifiers: Atrial fibrillation type: chronic Qualified Code(s): I48.2 - Chronic atrial fibrillation (5) History of aortic valve replacement with bioprosthetic valve Code(s): Z95.4 - PRESENCE OF OTHER HEART-VALVE REPLACEMENT (6) History of mitral valve replacement with bioprosthetic valve Code(s): Z95.4 - PRESENCE OF OTHER HEART-VALVE REPLACEMENT (7) Hyperlipidemia Code(s): E78.5 - HYPERLIPIDEMIA, UNSPECIFIED Qualifiers: Hyperlipidemia type: unspecified Qualified Code(s): E78.5 - Hyperlipidemia , unspecified (8) Hypertension Code(s): I10 - ESSENTIAL (PRIMARY) HYPERTENSION Qualifiers: Hypertension type: essential hypertension Qualified Code(s): I10 - Essential (primary) hypertension (9) Hypothyroidism Code(s): E03.9 - HYPOTHYROIDISM, UNSPECIFIED Qualifiers: Hypothyroidism type: unspecified Qualified Code(s): E03.9 - Hypothyroidism , unspecified
--- NOTE | 2019-05-23 16:29 | PN ---
Progress Note (short form) - Note Progress Note: 78 year old female admitted with a recent fall, causing a significant hematoma of the right buttock and posterior thigh. Known case of CAD/CABG, s/p aortic and mitral biprosthetic valve replacement, atrial fib. SSS, s/p PPM. HTN and HLD. Still has pain and discomfort over the right buttock and hematoma is tense and has enlarged. No chest pain or SOB no palpitations. patient is not on warfarin. Active Medications Acetaminophen (Tylenol -) 650 mg PO Q4H PRN PRN Reason: PAIN Last Admin: 05/23/19 13:41 Dose: 650 mg Atorvastatin Calcium (Lipitor -) 10 mg PO HS [facility] Last Admin: 05/22/19 21:54 Dose: 10 mg Carvedilol (Coreg -) 6.25 mg PO BID [facility] Last Admin: 05/23/19 09:30 Dose: 6.25 mg Digoxin (Lanoxin -) 0.125 mg PO MoTuWeThFrSa@1000 [facility] Last Admin: 05/23/19 09:30 Dose: 0.125 mg Diltiazem HCl (Cardizem Cd -) 240 mg PO BID [facility] Last Admin: 05/23/19 09:30 Dose: 240 mg Levothyroxine Sodium 100 mcg/ (Levothyroxine Sodium 75 mcg) 175 mcg PO DAILY@ 0700 [facility] Last Admin: 05/23/19 06:13 Dose: 175 mcg Nitroglycerin (Nitrostat -) 0.6 mg SL DAILY PRN PRN Reason: FOR CHEST PAIN Polyethylene Glycol (Miralax (For Daily Use) -) 17 gm PO BID [facility] Ranitidine HCl (Zantac -) 150 mg PO BID [facility] Last Admin: 05/23/19 09:30 Dose: 150 mg Spironolactone (Aldactone -) 25 mg PO DAILY [facility] Last Admin: 05/23/19 09:30 Dose: 25 mg Last Vital Signs Temp Pulse Resp BP Pulse Ox 97.4 F L 66 22 H 107/54 L 100 05/23/19 06:00 05/23/19 09:30 05/23/19 06:00 05/23/19 06:00 05/23/19 09:00 NECK: supple, no JVD, carotids 2+, faint radiation of murmur or bruit over the left carotid. HEART: PMI in the 5th ICS, no heaves or thrills. S1 variable, S2 split, SEMII/ at the 2nd rt. ICS ending in early systole. I/ decrescendo murmur at the apex, no diastolic murmur or gallop heard. LUNGS: Clear on auscultation. ABDOMEN: Soft nontender, no organomegaly or palpable masses. EXTREMITIES:RLE edema and eccymosis posterior thigh has significant hematoma. 1 + edema of the LLL Large and tense hematomaof the right buttock. CBC, BMP 05/23/19 05:05 05/23/19 05:05 IMPRESSION: 1. Large Hematoma of the right buttock, extending to the right posterior thigh( Traumatic). 2. CAD/CABG. 3. Bioprosthetic AVR. 4. Bioprosthetic MVR. 5. Permanent atrial fib. with periods of rapid ventricular response. 6. PPM, with appropriate pacing. 7. Hypercholesterlemia. RECOMMENDATIONS: 1. Surgical evaluation is pending 2. Continue current medications. 3. Close f/u of INR and CBC. 4. May require blood transfusion if HCT continues to drop.
[2019-05-23] MEDS: ATORVASTATIN CA 10 MG TABLET (FP) PO SCH (21:50)
[2019-05-23] MEDS: POLYETHYLENE GLYCOL 3350 119 GM BTL PO SCH (22:01)
[2019-05-24] MEDS ORDERED: PT OWN MED DRAWER 7, Y5N ONE (04:18)
[2019-05-24] MEDS: ACETAMINOPHEN 325 MG TABLET (FP) PO PRN ×3 (04:23→22:10)
[2019-05-24 06:25] LABS: BASO % 0.6 % (0-2.0); EOS % 2.3 % (0-4.5); HEMATOCRIT 22.1 % (32.4-45.2); HEMOGLOBIN 7.8 GM/dL (10.7-15.3); LYMPH % 10.4 % (8-40); MCH 31.5 pg (25.7-33.7); MCHC 35.1 g/dl (32.0-36.0); MEAN CELL VOLUME 89.6 fl (80-96); MEAN PLT VOLUME 8.8 fl (7.5-11.1); MONO % 10.1 % (3.8-10.2); NEUT % 76.6 % (42.8-82.8); PLATELET COUNT 137 K/MM3 (134-434); RBC 2.47 M/mm3 (3.60-5.2); RDW 15.1 % (11.6-15.6); WHITE BLOOD COUNT 7.7 K/mm3 (4.0-10.0)
[2019-05-24 06:41] LABS: INR 1.64 (0.83-1.09); PROTHROMBIN TIME (PATIENT) 19.4 SEC (9.7-13.0)
[2019-05-24] MEDS: LEVOTHYROXINE 100 MCG, LEVOTHYROXINE 75 MCG PO SCH (06:42)
[2019-05-24 06:43] LABS: ALBUMIN 2.8 g/dl (3.4-5.0); BILIRUBIN,TOTAL 1.3 mg/dL (0.2-1); BLOOD UREA NITROGEN 40.1 mg/dL (7-18); CALCIUM 7.9 mg/dL (8.5-10.1); MAGNESIUM 1.9 mg/dL (1.8-2.4); PHOSPHOROUS 2.8 mg/dL (2.5-4.9); POTASSIUM 3.6 mmol/L (3.5-5.1); TOT PROT 6.3 g/dl (6.4-8.2)
--- NOTE | 2019-05-24 07:33 | PN ---
Teaching Attending Note Name of Resident: Dipika Villa ATTENDING PHYSICIAN STATEMENT I saw and evaluated the patient. I reviewed the resident's note and discussed the case with the resident. I agree with the resident's findings and plan as documented with exceptions below. SUBJECTIVE: Patient seen and examined. left thigh pain improved, no new complaints. OBJECTIVE: Vital Signs Period Temp Pulse Resp BP Sys/Agudelo Pulse Ox Last 24 Hr 97.8 F-98.2 F 60-77 20-20 111-127/57-68 100-100 Intake & Output 05/21/19 05/22/19 05/23/19 05/24/19 23:59 23:59 23:59 23:59 Intake Total 10 730 740 240 Balance 10 730 740 240 Weight 185 lb General: lying in bed in no acute distress Chest: CTAB, no rales or wheezing Abdomen:soft, NT Extremities: large hematoma extending over left buttock/lateral/posterior thigh , soft, no fluctation, some areas of induration, mild tenderness, pos DP pulses Home Medications Medication Instructions Recorded Albuterol Sulfate [Proair Hfa -] 1 - 2 inh PO PRN PRN 05/28/12 Cholecalciferol (Vitamin D3) 1,000 unit PO DAILY 05/28/12 [Vitamin D] Digoxin [Lanoxin -] 0.125 mg PO WEEKLY 05/28/12 Furosemide [Lasix -] 40 mg PO DAILY 05/28/12 Levothyroxine [Synthroid -] 175 mcg PO WEEKLY 05/28/12 Multivits W-Fe,Other Min/Lut 1 each PO DAILY 05/28/12 [Centrum Silver Ultra Women Tab] Atorvastatin Calcium [Lipitor] 10 mg PO HS 06/24/13 Ranitidine HCl [Zantac] 150 mg PO BID 06/24/13 Acetaminophen [Tylenol] 650 mg PO PRN PRN 08/19/15 Aspirin [ASA -] 81 mg PO DAILY 08/19/15 Beclomethasone Dipropionate [Qvar 8.7 gm IH BID 08/19/15] Potassium Chloride [Klor-Con M20] 20 meq PO BID 08/19/15 Warfarin Sodium [Coumadin] 4 mg PO DAILY 08/19/15 Diltiazem Cd [Cardizem Cd -] 240 mg PO BID #60 cap.cd.24h 09/07/15 Aclidinium [place] [Tudorza -] 1 puff IH BID #1 inhaler 01/28/17 Metolazone [Zaroxolyn -] 2.5 mg PO Q2D@1000 #30 tablet 01/28/17 Spironolactone [Aldactone -] 25 mg PO DAILY #30 tablet 01/28/17 Carvedilol 6.25 mg PO BID 05/20/19 Nitroglycerin Sublingual 0.6 mg SL DAILY PRN 05/20/19 [Nitrostat -] Active Medications Acetaminophen (Tylenol -) 650 mg PO Q4H PRN PRN Reason: PAIN Last Admin: 05/24/19 04:23 Dose: 650 mg Atorvastatin Calcium (Lipitor -) 10 mg PO HS [facility] Last Admin: 05/23/19 21:50 Dose: 10 mg Carvedilol (Coreg -) 6.25 mg PO BID [facility] Last Admin: 05/23/19 21:51 Dose: 6.25 mg Digoxin (Lanoxin -) 0.125 mg PO MoTuWeThFrSa@1000 [facility] Last Admin: 05/23/19 09:30 Dose: 0.125 mg Diltiazem HCl (Cardizem Cd -) 240 mg PO BID [facility] Last Admin: 05/23/19 21:51 Dose: 240 mg Furosemide (Lasix -) 40 mg PO DAILY [facility] Levothyroxine Sodium 100 mcg/ (Levothyroxine Sodium 75 mcg) 175 mcg PO DAILY@ 0700 [facility] Last Admin: 05/24/19 06:42 Dose: 175 mcg Nitroglycerin (Nitrostat -) 0.6 mg SL DAILY PRN PRN Reason: FOR CHEST PAIN Polyethylene Glycol (Miralax (For Daily Use) -) 17 gm PO BID [facility] Last Admin: 05/23/19 22:01 Dose: 17 gm Ranitidine HCl (Zantac -) 150 mg PO BID [facility] Last Admin: 05/23/19 21:49 Dose: 150 mg Spironolactone (Aldactone -) 25 mg PO DAILY [facility] Last Admin: 05/23/19 09:30 Dose: 25 mg Laboratory Results - last 24 hr 05/24/19 05/24/19 05/24/19 05:35 05:35 05:35 WBC 7.7 RBC 2.47 L Hgb 7.8 L Hct 22.1 L MCV 89.6 MCH 31.5 MCHC 35.1 RDW 15.1 Plt Count 137 MPV 8.8 Absolute Neuts (auto) 5.9 Neutrophils % 76.6 Lymphocytes % 10.4 Monocytes % 10.1 Eosinophils % 2.3 Basophils % 0.6 Nucleated RBC % 0 PT with INR 19.40 H INR 1.64 H PTT (Actin FS) Sodium 134 L Potassium 3.6 Chloride 99 Carbon Dioxide 26 Anion Gap 8 BUN 40.1 H Creatinine 1.0 Est GFR (CKD-EPI)AfAm 62.05 Est GFR (CKD-EPI)NonAf 53.54 Random Glucose 105 Calcium 7.9 L Phosphorus 2.8 Magnesium 1.9 Total Bilirubin 1.3 H AST 20 ALT 17 Alkaline Phosphatase 73 Total Protein 6.3 L Albumin 2.8 L 05/24/19 05:35 WBC RBC Hgb Hct MCV MCH MCHC RDW Plt Count MPV Absolute Neuts (auto) Neutrophils % Lymphocytes % Monocytes % Eosinophils % Basophils % Nucleated RBC % PT with INR INR PTT (Actin FS) 33.6 Sodium Potassium Chloride Carbon Dioxide Anion Gap BUN Creatinine Est GFR (CKD-EPI)AfAm Est GFR (CKD-EPI)NonAf Random Glucose Calcium Phosphorus Magnesium Total Bilirubin AST ALT Alkaline Phosphatase Total Protein Albumin ASSESSMENT AND PLAN: 78F of pmh of Afib s/p failed MAZE(on coumadin), s/p PPM 2017, CAD s/p CABG, HF , bioprosethetic MVR/AVR 2014, b/l knee pain, hypothyroidism admitted with fall and right thigh hematoma -Mechanical Fall -Acute right thigh hematoma -Acute blood loss anemia -[place], ?hypovolumia blood loss related -Afib s/p failed MAZE, s/p PPM, on coumadin -CAD s/p CABG -Diastolic heart failure -Bioprosthetic AVR/MVR -Bilateral Knee pain -Hypothyroidism Plan: H/h slowly drifting down, hemodynamics stable. s/p vitamin K. ASA/Couamdin Surgery input noted. Transfuse 1 unit PRBC. REnal function stable. Resume Lasix. Continue aldactone, hold metolazone for now, monitor volume status. 2D echo results reviewed Cardiology input appreciated. Continue coreg/cardizem/digoxin DVTPPX SCDs LLE PT eval Dispo pending clinical improvement. Plan discussed with patient and nursing, all questions answered.
--- NOTE | 2019-05-24 08:19 | PN ---
Physical Exam: SUBJECTIVE: Patient seen and examined. Feels leg pain is improved. Thinks upper thigh swelling is less tense and less but now with foot edema. No chest pain, some exertion with ambulation. To get 1 unit of blood today as Hgb 7.7 OBJECTIVE: Vital Signs Period Temp Pulse Resp BP Sys/Agudelo Pulse Ox Last 24 Hr 97.8 F-98.2 F 60-77 20-20 111-127/57-68 100-100 Vital Signs Temp 97.8 F 05/24/19 04:37 Pulse 76 05/24/19 10:34 Resp 20 05/24/19 04:37 BP 111/57 L 05/24/19 04:37 Pulse Ox 100 05/24/19 09:00 Intake & Output 05/23/19 05/24/19 05/24/19 23:59 11:59 23:59 Intake Total 740 240 300 Balance 740 240 300 Intake: Oral 740 240 300 Other: Voiding Method Toilet Toilet # Unmeasured Voids Void 1 1 4 Bowel Movement No No GENERAL: The patient is awake, alert, and fully oriented, in no acute distress. LUNGS: Breath sounds equal, clear to auscultation bilaterally HEART: Regular rate and rhythm, S1, S2 systolic murmur RSB/APex ABDOMEN: Soft, nontender, nondistended, normoactive bowel sounds EXTREMITIES: Firm blackish blue discoloration over R buttock, softer gravitation of hematoma to R posterior leg up to popliteal fossa and anteriorly mid thigh NEUROLOGICAL: Cranial nerves II through XII grossly intact. Normal speech, gait not observed. CBC, BMP 05/24/19 05:35 05/24/19 05:35 Laboratory Results - last 24 hr 05/24/19 05/24/19 05/24/19 05:35 05:35 05:35 WBC 7.7 RBC 2.47 L Hgb 7.8 L Hct 22.1 L MCV 89.6 MCH 31.5 MCHC 35.1 RDW 15.1 Plt Count 137 MPV 8.8 Absolute Neuts (auto) 5.9 Neutrophils % 76.6 Lymphocytes % 10.4 Monocytes % 10.1 Eosinophils % 2.3 Basophils % 0.6 Nucleated RBC % 0 PT with INR 19.40 H INR 1.64 H PTT (Actin FS) Sodium 134 L Potassium 3.6 Chloride 99 Carbon Dioxide 26 Anion Gap 8 BUN 40.1 H Creatinine 1.0 Est GFR (CKD-EPI)AfAm 62.05 Est GFR (CKD-EPI)NonAf 53.54 Random Glucose 105 Calcium 7.9 L Phosphorus 2.8 Magnesium 1.9 Total Bilirubin 1.3 H AST 20 ALT 17 Alkaline Phosphatase 73 Total Protein 6.3 L Albumin 2.8 L 05/24/19 05:35 WBC RBC Hgb Hct MCV MCH MCHC RDW Plt Count MPV Absolute Neuts (auto) Neutrophils % Lymphocytes % Monocytes % Eosinophils % Basophils % Nucleated RBC % PT with INR INR PTT (Actin FS) 33.6 Sodium Potassium Chloride Carbon Dioxide Anion Gap BUN Creatinine Est GFR (CKD-EPI)AfAm Est GFR (CKD-EPI)NonAf Random Glucose Calcium Phosphorus Magnesium Total Bilirubin AST ALT Alkaline Phosphatase Total Protein Albumin Active Medications Generic Name Dose Route Start Last Admin Trade Name Freq PRN Reason Stop Dose Admin Acetaminophen 650 mg 05/21/19 15:57 05/24/19 04:23 Tylenol - PO 650 mg Q4H PRN Administration PAIN Atorvastatin Calcium 10 mg 05/20/19 22:00 05/23/19 21:50 Lipitor - PO 10 mg HS JO-ANN Administration Carvedilol 6.25 mg 05/20/19 10:00 05/23/19 21:51 Coreg - PO 6.25 mg BID JO-ANN Administration Digoxin 0.125 mg 05/21/19 15:00 05/23/19 09:30 Lanoxin - PO 0.125 mg MoTuWeThFrSa@1000 JO-ANN Administration Diltiazem HCl 240 mg 05/20/19 10:00 05/23/19 21:51 Cardizem Cd - PO 240 mg BID JO-ANN Administration Furosemide 40 mg 05/24/19 10:00 Lasix - PO DAILY JO-ANN Levothyroxine Sodium 100 mcg/ 175 mcg 05/21/19 15:00 05/24/19 06:42 Levothyroxine Sodium 75 mcg PO 175 mcg DAILY@0700 JO-ANN Administration Nitroglycerin 0.6 mg 05/20/19 03:53 Nitrostat - SL DAILY PRN FOR CHEST PAIN Polyethylene Glycol 17 gm 05/23/19 22:00 05/23/19 22:01 Miralax (For Daily Use) - PO 17 gm BID JO-ANN Administration Ranitidine HCl 150 mg 05/20/19 10:00 05/23/19 21:49 Zantac - PO 150 mg BID [facility] Administration Spironolactone 25 mg 05/20/19 10:00 05/23/19 09:30 Aldactone - PO 25 mg DAILY [facility] Administration Current Medications Acetaminophen (Tylenol -) 650 mg PO Q4H PRN PRN Reason: PAIN Last Admin: 05/24/19 16:50 Dose: 650 mg Atorvastatin Calcium (Lipitor -) 10 mg PO HS [facility] Last Admin: 05/23/19 21:50 Dose: 10 mg Carvedilol (Coreg -) 6.25 mg PO BID [facility] Last Admin: 05/24/19 10:34 Dose: 6.25 mg Digoxin (Lanoxin -) 0.125 mg PO MoTuWeThFrSa@1000 [facility] Last Admin: 05/24/19 10:34 Dose: 0.125 mg Diltiazem HCl (Cardizem Cd -) 240 mg PO BID [facility] Last Admin: 05/24/19 10:34 Dose: 240 mg Furosemide (Lasix -) 40 mg PO DAILY [facility] Last Admin: 05/24/19 10:34 Dose: 40 mg Levothyroxine Sodium 100 mcg/ (Levothyroxine Sodium 75 mcg) 175 mcg PO DAILY@ 0700 [facility] Last Admin: 05/24/19 06:42 Dose: 175 mcg Nitroglycerin (Nitrostat -) 0.6 mg SL DAILY PRN PRN Reason: FOR CHEST PAIN Polyethylene Glycol (Miralax (For Daily Use) -) 17 gm PO BID [facility] Last Admin: 05/24/19 10:34 Dose: Not Given Ranitidine HCl (Zantac -) 150 mg PO BID [facility] Last Admin: 05/24/19 10:34 Dose: 150 mg Spironolactone (Aldactone -) 25 mg PO DAILY [facility] Last Admin: 05/24/19 10:34 Dose: 25 mg Ambulatory Orders Albuterol Sulfate [Proair Hfa -] 1 - 2 inh PO PRN PRN 05/28/12 Cholecalciferol (Vitamin D3) [Vitamin D] 1,000 unit PO DAILY 05/28/12 Digoxin [Lanoxin -] 0.125 mg PO WEEKLY 05/28/12 Furosemide [Lasix -] 40 mg PO DAILY 05/28/12 Levothyroxine [Synthroid -] 175 mcg PO WEEKLY 05/28/12 Multivits W-Fe,Other Min/Lut [Centrum Silver Ultra Women Tab] 1 each PO DAILY Atorvastatin Calcium [Lipitor] 10 mg PO HS 06/24/13 Ranitidine HCl [Zantac] 150 mg PO BID 06/24/13 Acetaminophen [Tylenol] 650 mg PO PRN PRN 08/19/15 Aspirin [ASA -] 81 mg PO DAILY 08/19/15 Beclomethasone Dipropionate [Qvar ] 8.7 gm IH BID 08/19/15 Potassium Chloride [Klor-Con M20] 20 meq PO BID 08/19/15 Warfarin Sodium [Coumadin] 4 mg PO DAILY 08/19/15 Diltiazem Cd [Cardizem Cd -] 240 mg PO BID #60 cap.cd.24h 09/07/15 Aclidinium [place] [Tudorza -] 1 puff IH BID #1 inhaler 01/28/17 Metolazone [Zaroxolyn -] 2.5 mg PO Q2D@1000 #30 tablet 01/28/17 Spironolactone [Aldactone -] 25 mg PO DAILY #30 tablet 01/28/17 Carvedilol 6.25 mg PO BID 05/20/19 Nitroglycerin Sublingual [Nitrostat -] 0.6 mg SL DAILY PRN 05/20/19 ASSESSMENT/PLAN: 78F of pmh of Afib s/p failed MAZE(on coumadin), CAD s/p CABG, HF, bioprosethetic MVR(2014, [employer] #[id number]), bioprosthetic AVR(2014, [employer] # [id number]), pacemaker(2018, [employer] #[id number]), b/l knee pain, hypothyroidism presents to [facility] after fall. #Anemia H/H 7.7 transfusion treshold 8 (CAD) Pt to get 1uprbcs Lasix PO 40mg restarted Metazolone on hold # R hip hematoma -s/p vit K x1 dose - serial examinations - Seen by surgery, conservative mx encouraged- resolution will take some time -Pt to lay on L side side to elevate R hip above level of heart - Pt encouraged to change position frequently -Coumadin stopped - Cont to hold coumadin, NSAIDs, ASA -PT, CBC daily # Fall -Likely mechanical fall - CT head negative (pt on coumadin) -Carotid duplex-With 60% stenosis # Afib w/rvr - in ED on admission -Pt currently rate controlled -Pt was on coumadin, (now held) > troponin <0.02 x2 > EKG -Pt with PPM for failed MAZE, -Cont coreg #S/p CABG -Hold ASA, cont coreg, lipitor # CHF - - digoxin level-nl -Pt on spironolactone, coreg -On gentle hydration -Resume PO Lasix # WILTON - Cont lasix, cont spironolactone - encourage PO intake # Positive UA -Asymptomatic -Positive UA-nitrites, LE - CXR -negative -Monitor off AB # hypothyroidism - cw home levothyroxine #OLD On Home Qvar, hold albuterol with episode of afib w/rvr Cont to monitor Cont ranitidine Hold off chemical PPx Unable to use SCDs with leg swelling and hematoma, encourage ambulation Visit type - Emergency Visit Emergency Visit: Yes ED Registration Date: 05/20/19 Care time: The patient presented to the Emergency Department on the above date and was hospitalized for further evaluation of their emergent condition. - New Patient This patient is new to me today: No - Critical Care Critical Care patient: No - Discharge Referral Referred to [facility] Med P.C.: No ATTENDING PHYSICIAN STATEMENT I saw and evaluated the patient. I reviewed the resident's note and discussed the case with the resident. I agree with the resident's findings and plan as documented. SUBJECTIVE: OBJECTIVE: ASSESSMENT AND PLAN:
[2019-05-24] MEDS: RANITIDINE HCL 150 MG TABLET (FP) PO SCH ×2 (10:34→22:10)
[2019-05-24] MEDS: CARVEDILOL 6.25 MG TABLET (FP) PO SCH ×2 (10:34→22:10)
[2019-05-24] MEDS: POLYETHYLENE GLYCOL 3350 119 GM BTL PO SCH ×2 (10:34→22:10)
[2019-05-24] MEDS: DIGOXIN 0.125 MG TABLET (FP) PO SCH (10:34)
[2019-05-24] MEDS: SPIRONOLACTONE 25 MG TABLET (FP) PO SCH (10:34)
[2019-05-24] MEDS: FUROSEMIDE 40 MG TABLET (FP) PO SCH (10:34)
--- NOTE | 2019-05-24 10:44 | PN ---
Progress Note (short form) - Note Progress Note: 78 year old female admitted with a recent fall, causing a significant hematoma of the right buttock and posterior thigh. Known case of CAD/CABG, s/p aortic and mitral biprosthetic valve replacement, atrial fib. SSS, s/p PPM. HTN and HLD. Still has pain and discomfort over the right buttock and large hematoma. No chest pain or SOB no palpitations. patient is not on warfarin. Patient has been evaluated by a surgeon and has been advised conservative therapy. Progressive drop in hemoglobin/hematocrit. Active Medications Acetaminophen (Tylenol -) 650 mg PO Q4H PRN PRN Reason: PAIN Last Admin: 05/24/19 04:23 Dose: 650 mg Atorvastatin Calcium (Lipitor -) 10 mg PO HS [facility] Last Admin: 05/23/19 21:50 Dose: 10 mg Carvedilol (Coreg -) 6.25 mg PO BID [facility] Last Admin: 05/24/19 10:34 Dose: 6.25 mg Digoxin (Lanoxin -) 0.125 mg PO MoTuWeThFrSa@1000 [facility] Last Admin: 05/24/19 10:34 Dose: 0.125 mg Diltiazem HCl (Cardizem Cd -) 240 mg PO BID [facility] Last Admin: 05/24/19 10:34 Dose: 240 mg Furosemide (Lasix -) 40 mg PO DAILY [facility] Last Admin: 05/24/19 10:34 Dose: 40 mg Levothyroxine Sodium 100 mcg/ (Levothyroxine Sodium 75 mcg) 175 mcg PO DAILY@ 0700 [facility] Last Admin: 05/24/19 06:42 Dose: 175 mcg Nitroglycerin (Nitrostat -) 0.6 mg SL DAILY PRN PRN Reason: FOR CHEST PAIN Polyethylene Glycol (Miralax (For Daily Use) -) 17 gm PO BID [facility] Last Admin: 05/24/19 10:34 Dose: Not Given Ranitidine HCl (Zantac -) 150 mg PO BID [facility] Last Admin: 05/24/19 10:34 Dose: 150 mg Spironolactone (Aldactone -) 25 mg PO DAILY [facility] Last Admin: 05/24/19 10:34 Dose: 25 mg Last Vital Signs Temp Pulse Resp BP Pulse Ox 97.8 F 76 20 111/57 L 100 05/24/19 04:37 05/24/19 10:34 05/24/19 04:37 05/24/19 04:37 05/23/19 20:11 NECK: supple, no JVD, carotids 2+, faint radiation of murmur or bruit over the left carotid. HEART: PMI in the 5th ICS, no heaves or thrills. S1 variable, S2 split, SEMII/ at the 2nd rt. ICS ending in early systole. I/ decrescendo murmur at the apex, no diastolic murmur or gallop heard. LUNGS: Clear on auscultation. ABDOMEN: Soft nontender, no organomegaly or palpable masses. EXTREMITIES:RLE edema and eccymosis posterior thigh has significant hematoma. 1 + edema of the LLL Large and tense hematomaof the right buttock. CBC, BMP 05/24/19 05:35 05/24/19 05:35 IMPRESSION: 1. CAD/CABG. 2. Bioprosthetic AVR. 3. Bioprosthetic MVR. 4. Large Hematoma of the right buttock, extending to the right posterior thigh( Traumatic). 5. Permanent atrial fib. with periods of rapid ventricular response. 6. PPM, with appropriate pacing. 7. Hypercholesterlemia. RECOMMENDATIONS: 1. Continue current medications. 2. Close f/u of INR and CBC. 3. Patient may require blood transfusion in view of dropping hematocrit (22.1%). Julio César Gonzalez M.D.
--- NOTE | 2019-05-24 18:57 | PN ---
Progress Note, Physician History of Present Illness: Pt with large right hip hematoma after a fall, with extensive bruising over the hip and surrounding areas, with some dependent extension. She is seen and examined sitting on her bed, just finished dinner. She is feeling a little better overall. Was able to walk a full lap around the unit today with PT. Moving a little better. Trying to work on elevation of legs and lying with right hip up. Has used some warm blankets for warm packs, which felt good. She got a blood transfusion today and some lasix, and reports urinating frequently. She thinks the hip is just a little bit softer than it was before. - Current Medication List Current Medications: Active Medications Acetaminophen (Tylenol -) 650 mg PO Q4H PRN PRN Reason: PAIN Last Admin: 05/24/19 16:50 Dose: 650 mg Atorvastatin Calcium (Lipitor -) 10 mg PO HS [facility] Last Admin: 05/23/19 21:50 Dose: 10 mg Carvedilol (Coreg -) 6.25 mg PO BID [facility] Last Admin: 05/24/19 10:34 Dose: 6.25 mg Digoxin (Lanoxin -) 0.125 mg PO MoTuWeThFrSa@1000 [facility] Last Admin: 05/24/19 10:34 Dose: 0.125 mg Diltiazem HCl (Cardizem Cd -) 240 mg PO BID [facility] Last Admin: 05/24/19 10:34 Dose: 240 mg Furosemide (Lasix -) 40 mg PO DAILY [facility] Last Admin: 05/24/19 10:34 Dose: 40 mg Levothyroxine Sodium 100 mcg/ (Levothyroxine Sodium 75 mcg) 175 mcg PO DAILY@ 0700 [facility] Last Admin: 05/24/19 06:42 Dose: 175 mcg Nitroglycerin (Nitrostat -) 0.6 mg SL DAILY PRN PRN Reason: FOR CHEST PAIN Polyethylene Glycol (Miralax (For Daily Use) -) 17 gm PO BID [facility] Last Admin: 05/24/19 10:34 Dose: Not Given Ranitidine HCl (Zantac -) 150 mg PO BID [facility] Last Admin: 05/24/19 10:34 Dose: 150 mg Spironolactone (Aldactone -) 25 mg PO DAILY [facility] Last Admin: 05/24/19 10:34 Dose: 25 mg aspirin is now being held - Objective Vital Signs: Vital Signs Temperature 97.8 F 05/24/19 04:37 Pulse Rate 76 05/24/19 10:34 Respiratory Rate 20 05/24/19 04:37 Blood Pressure 111/57 L 05/24/19 04:37 O2 Sat by Pulse Oximetry (%) 100 05/24/19 09:00 Constitutional: Yes: Well Nourished, No Distress, Calm Eyes: Yes: Conjunctiva Clear, EOM Intact HENT: Yes: Atraumatic, Normocephalic Extremities: Yes: Other (see below). No: Cool, Cyanosis Edema: Yes Edema: RLE: 1+ (thigh and knee more swollen than lower leg) Integumentary: Yes: Bruising (right hip and surrounding areas - the hematoma over right hip feels slightly softer than yesterday, still somewhat tender, no open areas or skin sloughing, a little less edema in skin; size feels about the same). No: Jaundice, Rash Neurological: Yes: Alert, Oriented Labs: CBC, BMP 05/24/19 05:35 05/24/19 05:35 INR, PTT INR 1.64 (0.83-1.09) H 05/24/19 05:35 PTT 33.6 normal INR trending down Problem List - Problems (1) Traumatic hematoma of right hip Assessment/Plan: large hematoma at right hip, with extensive bruising, mostly local and dependent into adjacent tissues overlying skin at firm area/lump/hematoma itself is deep purple, with no open area or bonny necrosis or eschar this may take months to resolve, and elevation of the affected area would be beneficial, as able pt to lie on left side/hip (down) when in bed as much as possible, to keep right hip higher than heart also, can elevate foot of bed with head down flat while sleeping to help with leg edema warm compresses (not directly on skin) 15 mins/time, every few hours as possible - can encourage local circulation to facilitate resorption (warm blankets work very well) avoid NSAIDs and hold coumadin/asa as long as possible ok to continue ambulating as able, avoid sitting for long periods of time to use egg crate on chair for more comfort and padding avoid direct pressure on site as much as possible avoid falling or subsequent trauma as long as the hematoma remains uninfected and beneath intact skin, hopefully it will resolve slowly over time and not require intervention may take months to fully resorb will need close followup with PMD to monitor site and skin if skin does necrose, slough or turn to eschar - she may need debridement of the hematoma to allow healing, but resulting wound could be large and require complex care today, site seems slightly softer than yesterday, edema/swelling down just a little continue as above ok for ambulation with assistance as much as she can Code(s): S70.01XA - CONTUSION OF RIGHT HIP, INITIAL ENCOUNTER Qualifiers: Encounter type: initial encounter Qualified Code(s): S70.01XA - Contusion of right hip, initial encounter (2) Fall from bumping against object as cause of accidental injury Code(s): W18.00XA - STRIKING AGAINST UNSP OBJECT W SUBSEQUENT FALL, INIT ENCNTR (3) Right hip pain Code(s): M25.551 - PAIN IN RIGHT HIP (4) Atrial fibrillation Code(s): I48.91 - UNSPECIFIED ATRIAL FIBRILLATION Qualifiers: Atrial fibrillation type: chronic Qualified Code(s): I48.2 - Chronic atrial fibrillation (5) History of aortic valve replacement with bioprosthetic valve Code(s): Z95.4 - PRESENCE OF OTHER HEART-VALVE REPLACEMENT (6) History of mitral valve replacement with bioprosthetic valve Code(s): Z95.4 - PRESENCE OF OTHER HEART-VALVE REPLACEMENT (7) Hyperlipidemia Code(s): E78.5 - HYPERLIPIDEMIA, UNSPECIFIED Qualifiers: Hyperlipidemia type: unspecified Qualified Code(s): E78.5 - Hyperlipidemia , unspecified (8) Hypertension Code(s): I10 - ESSENTIAL (PRIMARY) HYPERTENSION Qualifiers: Hypertension type: essential hypertension Qualified Code(s): I10 - Essential (primary) hypertension (9) Hypothyroidism Code(s): E03.9 - HYPOTHYROIDISM, UNSPECIFIED Qualifiers: Hypothyroidism type: unspecified Qualified Code(s): E03.9 - Hypothyroidism , unspecified
[2019-05-24 21:03] LABS: BASO % 0.5 % (0-2.0); HEMATOCRIT 25.2 % (32.4-45.2); LYMPH % 11.3 % (8-40); MCH 31.8 pg (25.7-33.7); MCHC 35.6 g/dl (32.0-36.0); MEAN CELL VOLUME 89.4 fl (80-96); MEAN PLT VOLUME 8.7 fl (7.5-11.1); MONO % 10.8 % (3.8-10.2); NEUT % 75.4 % (42.8-82.8); PLATELET COUNT 170 K/MM3 (134-434); RBC 2.82 M/mm3 (3.60-5.2); RDW 14.7 % (11.6-15.6); WHITE BLOOD COUNT 8.3 K/mm3 (4.0-10.0)
[2019-05-24] MEDS: ATORVASTATIN CA 10 MG TABLET (FP) PO SCH (22:09)
[2019-05-25] MEDS: ACETAMINOPHEN 325 MG TABLET (FP) PO PRN ×2 (04:51→15:14)
[2019-05-25] MEDS ORDERED: PT OWN MED DRAWER 7, Y5N ONE (06:09)
[2019-05-25 06:39] LABS: INR 1.31 (0.83-1.09); PROTHROMBIN TIME (PATIENT) 15.5 SEC (9.7-13.0)
[2019-05-25 06:39] LABS: ALBUMIN 2.9 g/dl (3.4-5.0); BILIRUBIN,TOTAL 1.4 mg/dL (0.2-1); BLOOD UREA NITROGEN 41.2 mg/dL (7-18); CALCIUM 8.2 mg/dL (8.5-10.1); CREATININE 1.2 mg/dL (0.55-1.3); MAGNESIUM 1.9 mg/dL (1.8-2.4); PHOSPHOROUS 3.4 mg/dL (2.5-4.9); POTASSIUM 3.5 mmol/L (3.5-5.1); TOT PROT 6.1 g/dl (6.4-8.2)
[2019-05-25 06:41] LABS: BASO % 0.7 % (0-2.0); EOS % 2.5 % (0-4.5); HEMATOCRIT 25.2 % (32.4-45.2); HEMOGLOBIN 8.9 GM/dL (10.7-15.3); LYMPH % 12.2 % (8-40); MCH 31.7 pg (25.7-33.7); MCHC 35.3 g/dl (32.0-36.0); MEAN CELL VOLUME 89.6 fl (80-96); MEAN PLT VOLUME 9.1 fl (7.5-11.1); MONO % 10.7 % (3.8-10.2); NEUT % 73.9 % (42.8-82.8); PLATELET COUNT 148 K/MM3 (134-434); RBC 2.81 M/mm3 (3.60-5.2); RDW 14.5 % (11.6-15.6); WHITE BLOOD COUNT 7.5 K/mm3 (4.0-10.0)
[2019-05-25] MEDS: LEVOTHYROXINE 100 MCG, LEVOTHYROXINE 75 MCG PO SCH (06:53)
--- NOTE | 2019-05-25 07:53 | PN ---
Physical Exam: SUBJECTIVE: Patient seen and examined OBJECTIVE: Vital Signs Period Temp Pulse Resp BP Sys/Agudelo Pulse Ox Last 24 Hr 98 F-98 F 58-76 18-20 101-123/46-68 100-100 GENERAL: The patient is awake, alert, and fully oriented, in no acute distress. HEAD: Normal with no signs of trauma. EYES: PERRL, extraocular movements intact, sclera anicteric, conjunctiva clear. No ptosis. ENT: Ears normal, nares patent, oropharynx clear without exudates, moist mucous membranes. NECK: Trachea midline, full range of motion, supple. LUNGS: Breath sounds equal, clear to auscultation bilaterally, no wheezes, no crackles, no accessory muscle use. HEART: Regular rate and rhythm, S1, S2 without murmur, rub or gallop. ABDOMEN: Soft, nontender, nondistended, normoactive bowel sounds, no guarding, no rebound, no hepatosplenomegaly, no masses. EXTREMITIES: 2+ pulses, warm, well-perfused, no edema. NEUROLOGICAL: Cranial nerves II through XII grossly intact. Normal speech, gait not observed. PSYCH: Normal mood, normal affect. SKIN: Warm, dry, normal turgor, no rashes or lesions noted Laboratory Results - last 24 hr 05/24/19 05/24/19 05/25/19 09:15 20:20 05:25 WBC 8.3 RBC 2.82 L Hgb 9.0 L Hct 25.2 L MCV 89.4 MCH 31.8 MCHC 35.6 RDW 14.7 Plt Count 170 D MPV 8.7 Absolute Neuts (auto) 6.2 Neutrophils % 75.4 Lymphocytes % 11.3 Monocytes % 10.8 H Eosinophils % 2.0 Basophils % 0.5 Nucleated RBC % 0 PT with INR 15.50 H INR 1.31 H Sodium Potassium Chloride Carbon Dioxide Anion Gap BUN Creatinine Est GFR (CKD-EPI)AfAm Est GFR (CKD-EPI)NonAf Random Glucose Calcium Phosphorus Magnesium Total Bilirubin AST ALT Alkaline Phosphatase Total Protein Albumin Blood Type A POSITIVE Antibody Screen Negative Crossmatch See Detail 05/25/19 05/25/19 06:00 06:00 WBC 7.5 RBC 2.81 L Hgb 8.9 L Hct 25.2 L MCV 89.6 MCH 31.7 MCHC 35.3 RDW 14.5 Plt Count 148 MPV 9.1 Absolute Neuts (auto) 5.5 Neutrophils % 73.9 Lymphocytes % 12.2 Monocytes % 10.7 H Eosinophils % 2.5 Basophils % 0.7 Nucleated RBC % 0 PT with INR INR Sodium 133 L Potassium 3.5 Chloride 100 Carbon Dioxide 27 Anion Gap 7 L BUN 41.2 H Creatinine 1.2 Est GFR (CKD-EPI)AfAm 49.78 Est GFR (CKD-EPI)NonAf 42.95 Random Glucose 105 Calcium 8.2 L Phosphorus 3.4 Magnesium 1.9 Total Bilirubin 1.4 H AST 24 ALT 22 Alkaline Phosphatase 74 Total Protein 6.1 L Albumin 2.9 L Blood Type Antibody Screen Crossmatch Active Medications Generic Name Dose Route Start Last Admin Trade Name Freq PRN Reason Stop Dose Admin Acetaminophen 650 mg 05/21/19 15:57 05/25/19 04:51 Tylenol - PO 650 mg Q4H PRN Administration PAIN Atorvastatin Calcium 10 mg 05/20/19 22:00 05/24/19 22:09 Lipitor - PO 10 mg HS JO-ANN Administration Carvedilol 6.25 mg 05/20/19 10:00 05/24/19 22:10 Coreg - PO 6.25 mg BID JO-ANN Administration Digoxin 0.125 mg 05/21/19 15:00 05/24/19 10:34 Lanoxin - PO 0.125 mg MoTuWeThFrSa@1000 JO-ANN Administration Diltiazem HCl 240 mg 05/20/19 10:00 05/24/19 22:09 Cardizem Cd - PO 240 mg BID JO-ANN Administration Furosemide 40 mg 05/24/19 10:00 05/24/19 10:34 Lasix - PO 40 mg DAILY JO-ANN Administration Levothyroxine Sodium 100 mcg/ 175 mcg 05/21/19 15:00 05/25/19 06:53 Levothyroxine Sodium 75 mcg PO 175 mcg DAILY@0700 JO-ANN Administration Nitroglycerin 0.6 mg 05/20/19 03:53 Nitrostat - SL DAILY PRN FOR CHEST PAIN Polyethylene Glycol 17 gm 05/23/19 22:00 05/24/19 22:10 Miralax (For Daily Use) - PO Not Given BID JO-ANN Ranitidine HCl 150 mg 05/20/19 10:00 05/24/19 22:10 Zantac - PO 150 mg BID JO-ANN Administration Spironolactone 25 mg 05/20/19 10:00 05/24/19 10:34 Aldactone - PO 25 mg DAILY JO-ANN Administration ASSESSMENT/PLAN: ATTENDING PHYSICIAN STATEMENT I saw and evaluated the patient. I reviewed the resident's note and discussed the case with the resident. I agree with the resident's findings and plan as documented. SUBJECTIVE: OBJECTIVE: ASSESSMENT AND PLAN:
--- NOTE | 2019-05-25 09:48 | PN ---
Teaching Attending Note Name of Resident: Dipika Villa ATTENDING PHYSICIAN STATEMENT I saw and evaluated the patient. I reviewed the resident's note and discussed the case with the resident. I agree with the resident's findings and plan as documented with exceptions below. SUBJECTIVE: Patient seen and examined. Right thigh symptoms improved, ambulating better with PT, some dyspnea yesterday, but urinating " a lot" now improved OBJECTIVE: Vital Signs Period Temp Pulse Resp BP Sys/Agudelo Pulse Ox Last 24 Hr 98 F-98 F 58-76 18-20 101-118/46-52 100 Intake & Output 05/22/19 05/23/19 05/24/19 05/25/19 23:59 23:59 23:59 23:59 Intake Total 057 152 0743 200 Balance 986 609 0470 200 General: sitting in bed, no respiratory distress necK: soft, supple, no JVD Chest: bibasilar rales, R>L Abdomen:soft, NT Extremities: right thigh ecchymosis clearing, hematoma softer, stable from yesterday, pos DP pulses Home Medications Medication Instructions Recorded Albuterol Sulfate [Proair Hfa -] 1 - 2 inh PO PRN PRN 05/28/12 Cholecalciferol (Vitamin D3) 1,000 unit PO DAILY 05/28/12 [Vitamin D] Digoxin [Lanoxin -] 0.125 mg PO WEEKLY 05/28/12 Furosemide [Lasix -] 40 mg PO DAILY 05/28/12 Levothyroxine [Synthroid -] 175 mcg PO WEEKLY 05/28/12 Multivits W-Fe,Other Min/Lut 1 each PO DAILY 05/28/12 [Centrum Silver Ultra Women Tab] Atorvastatin Calcium [Lipitor] 10 mg PO HS 06/24/13 Ranitidine HCl [Zantac] 150 mg PO BID 06/24/13 Acetaminophen [Tylenol] 650 mg PO PRN PRN 08/19/15 Aspirin [ASA -] 81 mg PO DAILY 08/19/15 Beclomethasone Dipropionate [Qvar 8.7 gm IH BID 08/19/15] Potassium Chloride [Klor-Con M20] 20 meq PO BID 08/19/15 Warfarin Sodium [Coumadin] 4 mg PO DAILY 08/19/15 Diltiazem Cd [Cardizem Cd -] 240 mg PO BID #60 cap.cd.24h 09/07/15 Aclidinium [place] [Tudorza -] 1 puff IH BID #1 inhaler 01/28/17 Metolazone [Zaroxolyn -] 2.5 mg PO Q2D@1000 #30 tablet 01/28/17 Spironolactone [Aldactone -] 25 mg PO DAILY #30 tablet 01/28/17 Carvedilol 6.25 mg PO BID 05/20/19 Nitroglycerin Sublingual 0.6 mg SL DAILY PRN 05/20/19 [Nitrostat -] Active Medications Acetaminophen (Tylenol -) 650 mg PO Q4H PRN PRN Reason: PAIN Last Admin: 05/25/19 04:51 Dose: 650 mg Atorvastatin Calcium (Lipitor -) 10 mg PO HS [facility] Last Admin: 05/24/19 22:09 Dose: 10 mg Carvedilol (Coreg -) 6.25 mg PO BID [facility] Last Admin: 05/24/19 22:10 Dose: 6.25 mg Digoxin (Lanoxin -) 0.125 mg PO MoTuWeThFrSa@1000 [facility] Last Admin: 05/24/19 10:34 Dose: 0.125 mg Diltiazem HCl (Cardizem Cd -) 240 mg PO BID [facility] Last Admin: 05/24/19 22:09 Dose: 240 mg Furosemide (Lasix -) 40 mg PO DAILY [facility] Last Admin: 05/24/19 10:34 Dose: 40 mg Levothyroxine Sodium 100 mcg/ (Levothyroxine Sodium 75 mcg) 175 mcg PO DAILY@ 0700 [facility] Last Admin: 05/25/19 06:53 Dose: 175 mcg Nitroglycerin (Nitrostat -) 0.6 mg SL DAILY PRN PRN Reason: FOR CHEST PAIN Polyethylene Glycol (Miralax (For Daily Use) -) 17 gm PO BID [facility] Last Admin: 05/24/19 22:10 Dose: Not Given Potassium Chloride (K-Dur -) 20 meq PO BID [facility] Ranitidine HCl (Zantac -) 150 mg PO BID [facility] Last Admin: 05/24/19 22:10 Dose: 150 mg Spironolactone (Aldactone -) 25 mg PO DAILY [facility] Last Admin: 05/24/19 10:34 Dose: 25 mg Laboratory Results - last 24 hr 05/24/19 05/24/19 05/25/19 09:15 20:20 05:25 WBC 8.3 RBC 2.82 L Hgb 9.0 L Hct 25.2 L MCV 89.4 MCH 31.8 MCHC 35.6 RDW 14.7 Plt Count 170 D MPV 8.7 Absolute Neuts (auto) 6.2 Neutrophils % 75.4 Lymphocytes % 11.3 Monocytes % 10.8 H Eosinophils % 2.0 Basophils % 0.5 Nucleated RBC % 0 PT with INR 15.50 H INR 1.31 H Sodium Potassium Chloride Carbon Dioxide Anion Gap BUN Creatinine Est GFR (CKD-EPI)AfAm Est GFR (CKD-EPI)NonAf Random Glucose Calcium Phosphorus Magnesium Total Bilirubin AST ALT Alkaline Phosphatase Total Protein Albumin Blood Type A POSITIVE Antibody Screen Negative Crossmatch See Detail 05/25/19 05/25/19 06:00 06:00 WBC 7.5 RBC 2.81 L Hgb 8.9 L Hct 25.2 L MCV 89.6 MCH 31.7 MCHC 35.3 RDW 14.5 Plt Count 148 MPV 9.1 Absolute Neuts (auto) 5.5 Neutrophils % 73.9 Lymphocytes % 12.2 Monocytes % 10.7 H Eosinophils % 2.5 Basophils % 0.7 Nucleated RBC % 0 PT with INR INR Sodium 133 L Potassium 3.5 Chloride 100 Carbon Dioxide 27 Anion Gap 7 L BUN 41.2 H Creatinine 1.2 Est GFR (CKD-EPI)AfAm 49.78 Est GFR (CKD-EPI)NonAf 42.95 Random Glucose 105 Calcium 8.2 L Phosphorus 3.4 Magnesium 1.9 Total Bilirubin 1.4 H AST 24 ALT 22 Alkaline Phosphatase 74 Total Protein 6.1 L Albumin 2.9 L Blood Type Antibody Screen Crossmatch ASSESSMENT AND PLAN: 78F of pmh of Afib s/p failed MAZE(on coumadin), s/p PPM 2017, CAD s/p CABG, HF , bioprosethetic MVR/AVR 2014, b/l knee pain, hypothyroidism admitted with fall and right thigh hematoma -Mechanical Fall -Acute right thigh hematoma -Acute blood loss anemia -WILTON, ?hypovolumia blood loss related -Afib s/p failed MAZE, s/p PPM, on coumadin -CAD s/p CABG -Diastolic heart failure -Bioprosthetic AVR/MVR -Bilateral Knee pain -Hypothyroidism Plan: s/p 1 unit PRBC, appropriate response. s/p vitamin K. Will need to hold ASA/Couamdin and readdress in 1 week, discussed with Dr. Bernal. Surgery input noted, risks of resumption outweigh benefits currently given significant hematoma with blood loss requiring transfusion. Renal function stable. Continue spironolactone. Lasix resumed. Will resume metolazone in 24 hours. 2D echo results reviewed Cardiology input appreciated. Continue coreg/cardizem/digoxin DVTPPX SCDs LLE PT eval noted Dispo d/c home +/- services in 24 hours if h/h stable and no new concerns. Plan discussed with patient and nursing, all questions answered.
--- NOTE | 2019-05-25 09:57 | PN ---
Physical Exam: SUBJECTIVE: Patient seen and examined. Pain is improved, SOB is improved, s/p 1 PRBC 05/24. Also with increased dose of lasix to 40mg daily. OBJECTIVE: Vital Signs Period Temp Pulse Resp BP Sys/Agudelo Pulse Ox Last 24 Hr 98 F-98 F 58-76 18-20 101-118/46-52 100 Vital Signs Temp 98 F 05/25/19 02:09 Pulse 72 05/25/19 10:58 Resp 18 05/25/19 02:09 BP 101/46 L 05/25/19 02:09 Pulse Ox 100 05/24/19 21:00 Intake & Output 05/24/19 05/25/19 05/25/19 23:59 11:59 23:59 Intake Total 815 200 Balance 815 200 Intake: Oral 815 200 Other: Voiding Method Toilet Toilet # Unmeasured Voids Void 1 4 Bowel Movement No GENERAL: The patient is awake, alert, and fully oriented, in no acute distress. LUNGS: Breath sounds equal, clear to auscultation bilaterally, no wheezes, no crackles HEART: S1, S2 ABDOMEN: Soft, nontender, nondistended, normoactive bowel sounds EXTREMITIES: B/l pitting pedal edema 1+, R buttock/thigh hematoma, gravitation down now below popliteal fossa posteriorly and past mid thigh anteriorly. Varicose veins NEUROLOGICAL: Cranial nerves II through XII grossly intact. Normal speech, gait not observed. PSYCH: Normal mood, normal affect. SKIN: scattered bruises UEs CBC, BMP 05/25/19 06:00 05/25/19 06:00 Laboratory Results - last 24 hr 05/24/19 05/24/19 05/25/19 09:15 20:20 05:25 WBC 8.3 RBC 2.82 L Hgb 9.0 L Hct 25.2 L MCV 89.4 MCH 31.8 MCHC 35.6 RDW 14.7 Plt Count 170 D MPV 8.7 Absolute Neuts (auto) 6.2 Neutrophils % 75.4 Lymphocytes % 11.3 Monocytes % 10.8 H Eosinophils % 2.0 Basophils % 0.5 Nucleated RBC % 0 PT with INR 15.50 H INR 1.31 H Sodium Potassium Chloride Carbon Dioxide Anion Gap BUN Creatinine Est GFR (CKD-EPI)AfAm Est GFR (CKD-EPI)NonAf Random Glucose Calcium Phosphorus Magnesium Total Bilirubin AST ALT Alkaline Phosphatase Total Protein Albumin Blood Type A POSITIVE Antibody Screen Negative Crossmatch See Detail 05/25/19 05/25/19 06:00 06:00 WBC 7.5 RBC 2.81 L Hgb 8.9 L Hct 25.2 L MCV 89.6 MCH 31.7 MCHC 35.3 RDW 14.5 Plt Count 148 MPV 9.1 Absolute Neuts (auto) 5.5 Neutrophils % 73.9 Lymphocytes % 12.2 Monocytes % 10.7 H Eosinophils % 2.5 Basophils % 0.7 Nucleated RBC % 0 PT with INR INR Sodium 133 L Potassium 3.5 Chloride 100 Carbon Dioxide 27 Anion Gap 7 L BUN 41.2 H Creatinine 1.2 Est GFR (CKD-EPI)AfAm 49.78 Est GFR (CKD-EPI)NonAf 42.95 Random Glucose 105 Calcium 8.2 L Phosphorus 3.4 Magnesium 1.9 Total Bilirubin 1.4 H AST 24 ALT 22 Alkaline Phosphatase 74 Total Protein 6.1 L Albumin 2.9 L Blood Type Antibody Screen Crossmatch Active Medications Generic Name Dose Route Start Last Admin Trade Name Freq PRN Reason Stop Dose Admin Acetaminophen 650 mg 05/21/19 15:57 05/25/19 04:51 Tylenol - PO 650 mg Q4H PRN Administration PAIN Atorvastatin Calcium 10 mg 05/20/19 22:00 05/24/19 22:09 Lipitor - PO 10 mg HS JO-ANN Administration Carvedilol 6.25 mg 05/20/19 10:00 05/24/19 22:10 Coreg - PO 6.25 mg BID JO-ANN Administration Digoxin 0.125 mg 05/21/19 15:00 05/24/19 10:34 Lanoxin - PO 0.125 mg MoTuWeThFrSa@1000 JO-ANN Administration Diltiazem HCl 240 mg 05/20/19 10:00 05/24/19 22:09 Cardizem Cd - PO 240 mg BID JO-ANN Administration Furosemide 40 mg 05/24/19 10:00 05/24/19 10:34 Lasix - PO 40 mg DAILY JO-ANN Administration Levothyroxine Sodium 100 mcg/ 175 mcg 05/21/19 15:00 05/25/19 06:53 Levothyroxine Sodium 75 mcg PO 175 mcg DAILY@0700 JO-ANN Administration Nitroglycerin 0.6 mg 05/20/19 03:53 Nitrostat - SL DAILY PRN FOR CHEST PAIN Polyethylene Glycol 17 gm 05/23/19 22:00 05/24/19 22:10 Miralax (For Daily Use) - PO Not Given BID [facility] Potassium Chloride 20 meq 05/25/19 10:00 K-Dur - PO BID JO-ANN Ranitidine HCl 150 mg 05/20/19 10:00 05/24/19 22:10 Zantac - PO 150 mg BID JO-ANN Administration Spironolactone 25 mg 05/20/19 10:00 05/24/19 10:34 Aldactone - PO 25 mg DAILY JO-ANN Administration Ambulatory Orders Albuterol Sulfate [Proair Hfa -] 1 - 2 inh PO PRN PRN 05/28/12 Cholecalciferol (Vitamin D3) [Vitamin D] 1,000 unit PO DAILY 05/28/12 Digoxin [Lanoxin -] 0.125 mg PO WEEKLY 05/28/12 Furosemide [Lasix -] 40 mg PO DAILY 05/28/12 Levothyroxine [Synthroid -] 175 mcg PO WEEKLY 05/28/12 Multivits W-Fe,Other Min/Lut [Centrum Silver Ultra Women Tab] 1 each PO DAILY Atorvastatin Calcium [Lipitor] 10 mg PO HS 06/24/13 Ranitidine HCl [Zantac] 150 mg PO BID 06/24/13 Acetaminophen [Tylenol] 650 mg PO PRN PRN 08/19/15 Aspirin [ASA -] 81 mg PO DAILY 08/19/15 Beclomethasone Dipropionate [Qvar ] 8.7 gm IH BID 08/19/15 Potassium Chloride [Klor-Con M20] 20 meq PO BID 08/19/15 Warfarin Sodium [Coumadin] 4 mg PO DAILY 08/19/15 Diltiazem Cd [Cardizem Cd -] 240 mg PO BID #60 cap.cd.24h 09/07/15 Aclidinium [place] [Tudorza -] 1 puff IH BID #1 inhaler 01/28/17 Metolazone [Zaroxolyn -] 2.5 mg PO Q2D@1000 #30 tablet 01/28/17 Spironolactone [Aldactone -] 25 mg PO DAILY #30 tablet 01/28/17 Carvedilol 6.25 mg PO BID 05/20/19 Nitroglycerin Sublingual [Nitrostat -] 0.6 mg SL DAILY PRN 05/20/19 Current Medications Acetaminophen (Tylenol -) 650 mg PO Q4H PRN PRN Reason: PAIN Last Admin: 05/25/19 04:51 Dose: 650 mg Atorvastatin Calcium (Lipitor -) 10 mg PO HS [facility] Last Admin: 05/24/19 22:09 Dose: 10 mg Carvedilol (Coreg -) 6.25 mg PO BID [facility] Last Admin: 05/25/19 10:56 Dose: 6.25 mg Digoxin (Lanoxin -) 0.125 mg PO MoTuWeThFrSa@1000 [facility] Last Admin: 05/25/19 10:58 Dose: 0.125 mg Diltiazem HCl (Cardizem Cd -) 240 mg PO BID [facility] Last Admin: 05/25/19 10:57 Dose: 240 mg Furosemide (Lasix -) 40 mg PO DAILY [facility] Last Admin: 05/25/19 10:55 Dose: 40 mg Levothyroxine Sodium 100 mcg/ (Levothyroxine Sodium 75 mcg) 175 mcg PO DAILY@ 0700 [facility] Last Admin: 05/25/19 06:53 Dose: 175 mcg Nitroglycerin (Nitrostat -) 0.6 mg SL DAILY PRN PRN Reason: FOR CHEST PAIN Polyethylene Glycol (Miralax (For Daily Use) -) 17 gm PO BID [facility] Last Admin: 05/25/19 10:59 Dose: 17 gm Potassium Chloride (K-Dur -) 20 meq PO BID [facility] Last Admin: 05/25/19 10:55 Dose: 20 meq Ranitidine HCl (Zantac -) 150 mg PO BID [facility] Last Admin: 05/25/19 10:56 Dose: 150 mg Spironolactone (Aldactone -) 25 mg PO DAILY [facility] Last Admin: 05/25/19 10:55 Dose: 25 mg ASSESSMENT/PLAN: 78F of pmh of Afib s/p failed MAZE(on coumadin), CAD s/p CABG, HF, bioprosethetic MVR(2014, [employer] #[id number]), bioprosthetic AVR(2014, [employer] # [id number]), pacemaker(2018, [employer] #[id number]), b/l knee pain, hypothyroidism presents to [facility] after fall. #Anemia s/p transfusion 1uPRBCs- 7/16 post transfusion CBC -stable transfusion treshold 8 (CAD) Cont Lasix PO 40mg Metazolone on hold # R hip hematoma -s/p vit K x1 dose - serial examinations - Seen by surgery, conservative mx encouraged- resolution will take some time -Pt to lay on L side side to elevate R hip above level of heart - Pt encouraged to change position frequently -Coumadin stopped - Cont to hold coumadin, NSAIDs, ASA -PT, CBC daily # Fall -Likely mechanical fall - CT head negative (pt on coumadin) -Carotid duplex-With 60% stenosis # Afib w/rvr - in ED on admission -Pt currently rate controlled -Pt was on coumadin, (now held) > troponin <0.02 x2 > EKG -Pt with PPM for failed MAZE, -Cont coreg #S/p CABG -Hold ASA, cont coreg, lipitor # CHF - - digoxin level-nl -Pt on spironolactone, coreg -On gentle hydration -Resume PO Lasix # WILTON - Cont lasix, cont spironolactone - encourage PO intake # Positive UA -Asymptomatic -Positive UA-nitrites, LE - CXR -negative -Monitor off AB # hypothyroidism - cw home levothyroxine #OLD On Home Qvar, hold albuterol with episode of afib w/rvr Cont to monitor Cont ranitidine Hold off chemical PPx Unable to use SCDs with leg swelling and hematoma, encourage ambulation Dispo: Cont to monitor Possible Dc home tomorrow if stable (pt declined [employer]) Visit type - Emergency Visit Emergency Visit: Yes ED Registration Date: 05/20/19 Care time: The patient presented to the Emergency Department on the above date and was hospitalized for further evaluation of their emergent condition. - New Patient This patient is new to me today: No - Critical Care Critical Care patient: No - Discharge Referral Referred to [facility] Med P.C.: No ATTENDING PHYSICIAN STATEMENT I saw and evaluated the patient. I reviewed the resident's note and discussed the case with the resident. I agree with the resident's findings and plan as documented. SUBJECTIVE: OBJECTIVE: ASSESSMENT AND PLAN:
[2019-05-25] MEDS: POTASSIUM CHLORIDE TABS 20 MEQ TABLET.ER (FP) PO SCH ×2 (10:55→21:48)
[2019-05-25] MEDS: SPIRONOLACTONE 25 MG TABLET (FP) PO SCH (10:55)
[2019-05-25] MEDS: FUROSEMIDE 40 MG TABLET (FP) PO SCH (10:55)
[2019-05-25] MEDS: RANITIDINE HCL 150 MG TABLET (FP) PO SCH ×2 (10:56→21:48)
[2019-05-25] MEDS: CARVEDILOL 6.25 MG TABLET (FP) PO SCH ×2 (10:56→21:48)
[2019-05-25] MEDS: DIGOXIN 0.125 MG TABLET (FP) PO SCH (10:58)
[2019-05-25] MEDS: POLYETHYLENE GLYCOL 3350 119 GM BTL PO SCH ×2 (10:59→21:50)
--- NOTE | 2019-05-25 15:24 | PN ---
Progress Note, Physician History of Present Illness: Pt with large right hip hematoma after a fall, with extensive bruising over the hip and surrounding areas, with dependent ecchymoses. She is seen and examined after ambulating around the unit with PT. Feeling ok overall, reports having had a temp of 99. Hb is stable today, and she is eating well. She plans to walk around again one more time. 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 She reports that her car is in the hospital lot, and she is the only one at home who drives. She does not know if she knows anyone who could help her get home without driving herself, or to come back and get her car, when she is ready to go. - Current Medication List Current Medications: Active Medications Acetaminophen (Tylenol -) 650 mg PO Q4H PRN PRN Reason: PAIN Last Admin: 05/25/19 15:14 Dose: 650 mg Atorvastatin Calcium (Lipitor -) 10 mg PO HS [facility] Last Admin: 05/24/19 22:09 Dose: 10 mg Carvedilol (Coreg -) 6.25 mg PO BID [facility] Last Admin: 05/25/19 10:56 Dose: 6.25 mg Digoxin (Lanoxin -) 0.125 mg PO MoTuWeThFrSa@1000 [facility] Last Admin: 05/25/19 10:58 Dose: 0.125 mg Diltiazem HCl (Cardizem Cd -) 240 mg PO BID [facility] Last Admin: 05/25/19 10:57 Dose: 240 mg Furosemide (Lasix -) 40 mg PO DAILY [facility] Last Admin: 05/25/19 10:55 Dose: 40 mg Levothyroxine Sodium 100 mcg/ (Levothyroxine Sodium 75 mcg) 175 mcg PO DAILY@ 0700 [facility] Last Admin: 05/25/19 06:53 Dose: 175 mcg Nitroglycerin (Nitrostat -) 0.6 mg SL DAILY PRN PRN Reason: FOR CHEST PAIN Polyethylene Glycol (Miralax (For Daily Use) -) 17 gm PO BID [facility] Last Admin: 05/25/19 10:59 Dose: 17 gm Potassium Chloride (K-Dur -) 20 meq PO BID [facility] Last Admin: 05/25/19 10:55 Dose: 20 meq Ranitidine HCl (Zantac -) 150 mg PO BID [facility] Last Admin: 05/25/19 10:56 Dose: 150 mg Spironolactone (Aldactone -) 25 mg PO DAILY JO-ANN Last Admin: 05/25/19 10:55 Dose: 25 mg - Objective Vital Signs: Vital Signs Temperature 98 F 05/25/19 02:09 Pulse Rate 72 05/25/19 10:58 Respiratory Rate 18 05/25/19 02:09 Blood Pressure 101/46 L 05/25/19 02:09 O2 Sat by Pulse Oximetry (%) 100 05/24/19 21:00 Constitutional: Yes: Well Nourished, No Distress, Calm Eyes: Yes: Conjunctiva Clear, EOM Intact HENT: Yes: Atraumatic, Normocephalic Extremities: Yes: Other (right hip with hematoma, bruising is slowly moving down the leg, also wraps around to buttocks and groin/perineum - hematoma site still somewhat firm, tender, but overall stable, slightly softer still than earlier). No: Cool, Cyanosis Edema: Yes Edema: RLE: 1+ (up through thigh) Integumentary: Yes: Bruising (R hip, thigh, etc - see above), Other (dressing still on right elbow). No: Jaundice, Rash Neurological: Yes: Alert, Oriented. No: Unsteady Gait (ambulating well with cane and PT assistance) Labs: CBC, BMP 05/25/19 06:00 05/25/19 06:00 INR, PTT INR 1.31 (0.83-1.09) H 05/25/19 05:25 INR down Hb stable Problem List - Problems (1) Traumatic hematoma of right hip Assessment/Plan: large hematoma at right hip, with extensive bruising, mostly local and dependent into adjacent tissues overlying skin at firm area/lump/hematoma itself is deep purple, with no open area or bonny necrosis or eschar this may take months to resolve, and elevation of the affected area would be beneficial, as able pt to lie on left side/hip (down) when in bed as much as possible, to keep right hip higher than heart also, can elevate foot of bed with head down flat while sleeping to help with leg edema warm compresses (not directly on skin) 15 mins/time, every few hours as possible - can encourage local circulation to facilitate resorption (warm blankets work very well) avoid NSAIDs and hold coumadin/asa as long as possible ok to continue ambulating as able, avoid sitting for long periods of time to use egg crate on chair for more comfort and padding avoid direct pressure on site as much as possible avoid falling or subsequent trauma as long as the hematoma remains uninfected and beneath intact skin, hopefully it will resolve slowly over time and not require intervention may take months to fully resorb will need close followup with PMD to monitor site and skin - she states she plans to see Dr. Bernal next if skin does necrose, slough or turn to eschar - she may need debridement of the hematoma to allow healing, but resulting wound could be large and require complex care site tender, but hematoma seems stable, bruising migrating dependently pain slightly less daily continue as above ok for ambulation with assistance as much as she can advised patient that driving herself home from the hospital or at all quite yet may not be safe - if she has pain or limitation of motion that would cause her to have ANY difficulty navigating the foot controls, or to hesitate in the slightest in an emergency situation requiring slamming on the brakes or any other reaction, that it would not be time to get behind the wheel yet discussed with nursing and resident that she was advised to find an alternate way home and get help with retrieving her car at a later time and to make sure someone is with her the first time she tries driving again recommend SHARITA/NALINI to also be aware Code(s): S70.01XA - CONTUSION OF RIGHT HIP, INITIAL ENCOUNTER Qualifiers: Encounter type: initial encounter Qualified Code(s): S70.01XA - Contusion of right hip, initial encounter (2) Fall from bumping against object as cause of accidental injury Code(s): W18.00XA - STRIKING AGAINST UNSP OBJECT W SUBSEQUENT FALL, INIT ENCNTR (3) Right hip pain Code(s): M25.551 - PAIN IN RIGHT HIP (4) Atrial fibrillation Code(s): I48.91 - UNSPECIFIED ATRIAL FIBRILLATION Qualifiers: Atrial fibrillation type: chronic Qualified Code(s): I48.2 - Chronic atrial fibrillation (5) History of aortic valve replacement with bioprosthetic valve Code(s): Z95.4 - PRESENCE OF OTHER HEART-VALVE REPLACEMENT (6) History of mitral valve replacement with bioprosthetic valve Code(s): Z95.4 - PRESENCE OF OTHER HEART-VALVE REPLACEMENT (7) Hyperlipidemia Code(s): E78.5 - HYPERLIPIDEMIA, UNSPECIFIED Qualifiers: Hyperlipidemia type: unspecified Qualified Code(s): E78.5 - Hyperlipidemia , unspecified (8) Hypertension Code(s): I10 - ESSENTIAL (PRIMARY) HYPERTENSION Qualifiers: Hypertension type: essential hypertension Qualified Code(s): I10 - Essential (primary) hypertension (9) Hypothyroidism Code(s): E03.9 - HYPOTHYROIDISM, UNSPECIFIED Qualifiers: Hypothyroidism type: unspecified Qualified Code(s): E03.9 - Hypothyroidism , unspecified
--- NOTE | 2019-05-25 18:11 | PN ---
Progress Note (short form) - Note Progress Note: 78 year old female admitted with a recent fall, causing a significant hematoma of the right buttock and posterior thigh. Known case of CAD/CABG, s/p aortic and mitral biprosthetic valve replacement, atrial fib. SSS, s/p PPM. HTN and HLD. Still has pain and discomfort over the right buttock and large hematoma. No chest pain or SOB no palpitations. patient is not on warfarin. Patient has been evaluated by a surgeon and has been advised conservative therapy. Progressive drop in hemoglobin/hematocrit. Active Medications Acetaminophen (Tylenol -) 650 mg PO Q4H PRN PRN Reason: PAIN Last Admin: 05/25/19 15:14 Dose: 650 mg Atorvastatin Calcium (Lipitor -) 10 mg PO HS [facility] Last Admin: 05/24/19 22:09 Dose: 10 mg Carvedilol (Coreg -) 6.25 mg PO BID [facility] Last Admin: 05/25/19 10:56 Dose: 6.25 mg Digoxin (Lanoxin -) 0.125 mg PO MoTuWeThFrSa@1000 [facility] Last Admin: 05/25/19 10:58 Dose: 0.125 mg Diltiazem HCl (Cardizem Cd -) 240 mg PO BID [facility] Last Admin: 05/25/19 10:57 Dose: 240 mg Furosemide (Lasix -) 40 mg PO DAILY [facility] Last Admin: 05/25/19 10:55 Dose: 40 mg Levothyroxine Sodium 100 mcg/ (Levothyroxine Sodium 75 mcg) 175 mcg PO DAILY@ 0700 [facility] Last Admin: 05/25/19 06:53 Dose: 175 mcg Nitroglycerin (Nitrostat -) 0.6 mg SL DAILY PRN PRN Reason: FOR CHEST PAIN Polyethylene Glycol (Miralax (For Daily Use) -) 17 gm PO BID [facility] Last Admin: 05/25/19 10:59 Dose: 17 gm Potassium Chloride (K-Dur -) 20 meq PO BID [facility] Last Admin: 05/25/19 10:55 Dose: 20 meq Ranitidine HCl (Zantac -) 150 mg PO BID [facility] Last Admin: 05/25/19 10:56 Dose: 150 mg Spironolactone (Aldactone -) 25 mg PO DAILY [facility] Last Admin: 05/25/19 10:55 Dose: 25 mg Last Vital Signs Temp Pulse Resp BP Pulse Ox 99.0 F 72 19 122/65 100 05/25/19 14:00 05/25/19 10:58 05/25/19 14:00 05/25/19 14:00 05/25/19 09:00 NECK: supple, no JVD, carotids 2+, faint radiation of murmur or bruit over the left carotid. HEART: PMI in the 5th ICS, no heaves or thrills. S1 variable, S2 split, SEMII/ at the 2nd rt. ICS ending in early systole. I/ decrescendo murmur at the apex, no diastolic murmur or gallop heard. LUNGS: Clear on auscultation. ABDOMEN: Soft nontender, no organomegaly or palpable masses. EXTREMITIES:RLE edema and eccymosis posterior thigh has significant hematoma. 1 + edema of the LLL Large and tense hematomaof the right buttock. CBC, BMP 05/25/19 06:00 05/25/19 06:00 IMPRESSION: 1.CAD/CABG. 2. Bioprosthetic AVR. 3. Bioprosthetic MVR. 4. Large Hematoma of the right buttock, extending to the right posterior thigh( Traumatic). 5. Permanent atrial fib. with periods of rapid ventricular response. 6. PPM, with appropriate pacing. 7. Hypercholesterlemia. RECOMMENDATIONS: 1. Continue current medications. 2. Close f/u of INR and CBC. 3. Patient may require blood transfusion in view of dropping hematocrit (22.1%). Julio César Gonzalez M.D.
[2019-05-25] MEDS: ATORVASTATIN CA 10 MG TABLET (FP) PO SCH (21:48)
[2019-05-26] MEDS: ACETAMINOPHEN 325 MG TABLET (FP) PO PRN ×2 (01:06→12:58)
[2019-05-26 04:32] VITALS: PULSE 68
[2019-05-26 06:01] LABS: BASO % 0.6 % (0-2.0); EOS % 1.8 % (0-4.5); HEMATOCRIT 26.7 % (32.4-45.2); HEMOGLOBIN 9.4 GM/dL (10.7-15.3); LYMPH % 10.7 % (8-40); MCH 31.9 pg (25.7-33.7); MCHC 35.3 g/dl (32.0-36.0); MEAN CELL VOLUME 90.4 fl (80-96); MEAN PLT VOLUME 8.7 fl (7.5-11.1); MONO % 11.6 % (3.8-10.2); NEUT % 75.3 % (42.8-82.8); PLATELET COUNT 153 K/MM3 (134-434); RBC 2.95 M/mm3 (3.60-5.2); RDW 15.1 % (11.6-15.6); WHITE BLOOD COUNT 7.1 K/mm3 (4.0-10.0)
[2019-05-26 06:20] LABS: INR 1.28 (0.83-1.09); PROTHROMBIN TIME (PATIENT) 15.1 SEC (9.7-13.0)
[2019-05-26 06:23] LABS: ACTIVATED PTT 28.9 SECONDS (25.2-36.5)
[2019-05-26] MEDS ORDERED: PT OWN MED DRAWER 7, Y5N ONE (06:23)
[2019-05-26] MEDS: LEVOTHYROXINE 100 MCG, LEVOTHYROXINE 75 MCG PO SCH (06:25)
[2019-05-26 06:27] LABS: ALBUMIN 2.9 g/dl (3.4-5.0); BILIRUBIN,TOTAL 1.5 mg/dL (0.2-1); BLOOD UREA NITROGEN 35.2 mg/dL (7-18); CALCIUM 8.1 mg/dL (8.5-10.1); MAGNESIUM 1.9 mg/dL (1.8-2.4); POTASSIUM 4.1 mmol/L (3.5-5.1); TOT PROT 6.1 g/dl (6.4-8.2)
[2019-05-26] MEDS: SPIRONOLACTONE 25 MG TABLET (FP) PO SCH (09:45)
[2019-05-26] MEDS: CARVEDILOL 6.25 MG TABLET (FP) PO SCH (09:45)
[2019-05-26] MEDS: POTASSIUM CHLORIDE TABS 20 MEQ TABLET.ER (FP) PO SCH (09:45)
[2019-05-26] MEDS: FUROSEMIDE 40 MG TABLET (FP) PO SCH (09:45)
[2019-05-26] MEDS: DIGOXIN 0.125 MG TABLET (FP) PO SCH (09:45)
[2019-05-26] MEDS: RANITIDINE HCL 150 MG TABLET (FP) PO SCH (09:46)
[2019-05-26] MEDS: POLYETHYLENE GLYCOL 3350 119 GM BTL PO SCH (09:46)
[2019-05-26 11:42] VITALS: BP 125/63; TEMP 98.7
--- NOTE | 2019-05-26 11:43 | PN ---
Teaching Attending Note Name of Resident: Dipika Villa ATTENDING PHYSICIAN STATEMENT I saw and evaluated the patient. I reviewed the resident's note and discussed the case with the resident. I agree with the resident's findings and plan as documented with exceptions below. SUBJECTIVE: patient seen and examined. OBJECTIVE: ASSESSMENT AND PLAN:
--- NOTE | 2019-05-26 12:57 | DS ---
Physical Exam: SUBJECTIVE: Patient seen and examined. Pain improved, ambulating more. No chest pain, no shortness of breath. OBJECTIVE: Vital Signs Period Temp Pulse Resp BP Sys/Agudelo Pulse Ox Last 24 Hr 97.7 F-99.0 F 59-70 18-21 101-125/47-65 98-98 Vital Signs Temp 98.7 F 05/26/19 08:00 Pulse 68 05/26/19 09:45 Resp 18 05/26/19 08:00 BP 125/63 05/26/19 08:00 Pulse Ox 98 05/26/19 09:00 Intake & Output 05/25/19 05/26/19 05/26/19 23:59 11:59 23:59 Intake Total 300 540 160 Balance 300 540 160 Intake: IV 20 Saline Lock 10 Saline Lock 2 10 Oral 300 520 160 Other: Voiding Method Toilet Toilet # Unmeasured Voids Void 4 1 2 Bowel Movement Yes No # Bowel Movements 1 Body Mass Index (BMI) 29.8 PHYSICAL EXAM GENERAL: The patient is awake, alert, and fully oriented, in no acute distress. ENT: moist mucous membranes. LUNGS: Breath sounds equal, clear to auscultation bilaterally, no wheezes, no crackles HEART: irreg, S1, S2 RSB, apex murmur. ABDOMEN: Soft, nontender, nondistended, normoactive bowel sounds, EXTREMITIES: Tenseness over R buttock and thigh reducing. Hematoma gravitating downwards below popliteal fossa anteriorly and past midthigh anteriorly NEUROLOGICAL: Cranial nerves II through XII grossly intact. Normal speech, gait not observed. LABS CBC, BMP 05/26/19 05:30 05/26/19 05:30 Laboratory Results - last 24 hr 05/26/19 05/26/19 05/26/19 05:30 05:30 05:30 WBC 7.1 RBC 2.95 L Hgb 9.4 L Hct 26.7 L MCV 90.4 MCH 31.9 MCHC 35.3 RDW 15.1 Plt Count 153 MPV 8.7 Absolute Neuts (auto) 5.3 Neutrophils % 75.3 Lymphocytes % 10.7 Monocytes % 11.6 H Eosinophils % 1.8 Basophils % 0.6 Nucleated RBC % 0 PT with INR 15.10 H INR 1.28 H PTT (Actin FS) 28.9 Sodium 133 L Potassium 4.1 Chloride 100 Carbon Dioxide 27 Anion Gap 6 L BUN 35.2 H Creatinine 1.0 Est GFR (CKD-EPI)AfAm 62.05 Est GFR (CKD-EPI)NonAf 53.54 Random Glucose 95 Calcium 8.1 L Phosphorus 3.0 Magnesium 1.9 Total Bilirubin 1.5 H AST 24 ALT 20 Alkaline Phosphatase 73 Total Protein 6.1 L Albumin 2.9 L HOSPITAL COURSE: Date of Admission:05/20/19 Date of Discharge: 05/26/19 Pt is a78F of pmh of Afib s/p failed MAZE(on coumadin), CAD s/p CABG, HF, bioprosethetic MVR(2015, [employer] #[id number]), bioprosthetic AVR(2015, [employer] # [id number]), pacemaker(2018, [employer] #[id number]), b/l knee pain, hypothyroidism presents to [facility] after mechanical fall, tripping over concrete block in parking lot, hitting Right hip. Two strangers helped patient up. Denies LOC, dizziness, confusion, CP, palpitations, SOB before or after falling. Went home but recalled that since she takes warfarin, she should present to the ED for evaluation. Complains of mild soreness, 2/10 pain of Right hip, does not radiate. Denies decreased ROM, nerve pain. Normally drinks ~8bottles water/ daily. States that she drank less water recently. Pt had therapeutic INR and was continued initally on coumadin and observed with serial examination of R thigh/buttock. When hematoma was noted to be more tense and spreading, coumadin was dcd, ASA was also dcd. Surgical consultwas initated and conservative management was recommended with positioning, increased ambulation. Pt was transfused one unit of blood with post transfusion prbc stabilizing. Pt was discharged home off coumadin/ASA to follow up with Dr Bernal. If skin slough or infection noted, pt would require surgical management. Minutes to complete discharge: 39 Discharge Summary Reason For Visit: ACUTE RENAL FAILURE, FALL Current Active Problems WILTON (acute kidney injury) (Acute) Acute renal failure (Acute) Fall (Acute) Fall from bumping against object as cause of accidental injury (Acute) Hematoma (Acute) Right hip pain (Acute) Traumatic hematoma of right hip (Acute) Condition: Stable - Instructions Diet, Activity, Other Instructions: You came in after a fall while on coumadin and were found to have a blood collection (hematoma) under your right thigh and buttock The blood collection appeared to spread initially but has stabilized Medications We have stopped coumadin and aspirin and recommend you avoid any over the counter pain medications such as ibuprofen, naproxen as they could also worsen the bleed You may use tylenol for pain Instructions You were seen by the surgeon who wants you to be aware that the hematoma may take months to resolve elevate the affected area as able lie on left side/hip (down) when in bed as much as possible, to keep right hip higher than heart elevate foot of bed with head down flat while sleeping to help with leg edema warm compresses (not directly on skin) 15 mins/time, every few hours as possible - can encourage local circulation to facilitate resorption (warm blankets work very well) Avoid NSAIDs and hold coumadin/asa for now and discuss with your doctor within 1 week for resumption. Continue ambulating as able, avoid sitting for long periods of time Use egg crate on chair for more comfort and padding Avoid direct pressure on site as much as possible Avoid falling or subsequent trauma Caution Watch for signs of infection such as fever, chills, sloughing skin and pus drainage as long as the hematoma remains uninfected and beneath intact skin, hopefully it will resolve slowly over time and not require intervention may take months to fully resorb Follow up Follow up with PMD to monitor site and skin - Dr. Bernal next If you notice excessive sloughing, darkening of the skin, new pain or concerns, please come back to ED rightaway as you may need debridment (procedure) of the area. Follow up with your air defense artillery officer Dr. Gonzalez in 1 week as schuled and discuss about blood thinners and further treatment. Continue your other medications as prescribed If you think your symptoms are not getting better, with fevers, chills, sloughing of skin, increasing tenseness and bruising, worsening swelling of your leg with pain and inability to move, please go to the nearest emergency room Referrals: Rolando Owen MD [Staff Physician] - Luis Fernando Bernal MD [Primary Care Provider] - Julio César Gonzalez MD [Staff Physician] - Disposition: HOME - Home Medications Comprehensive Discharge Medication List: Ambulatory Orders Albuterol Sulfate [Proair Hfa -] 1 - 2 inh PO PRN PRN 05/28/12 Cholecalciferol (Vitamin D3) [Vitamin D] 1,000 unit PO DAILY 05/28/12 Digoxin [Lanoxin -] 0.125 mg PO WEEKLY 05/28/12 Furosemide [Lasix -] 40 mg PO DAILY 05/28/12 Levothyroxine [Synthroid -] 175 mcg PO WEEKLY 05/28/12 Multivits W-Fe,Other Min/Lut [Centrum Silver Ultra Women Tab] 1 each PO DAILY Atorvastatin Calcium [Lipitor] 10 mg PO HS 06/24/13 Ranitidine HCl [Zantac] 150 mg PO BID 06/24/13 Acetaminophen [Tylenol] 650 mg PO PRN PRN 08/19/15 Beclomethasone Dipropionate [Qvar ] 8.7 gm IH BID 08/19/15 Potassium Chloride [Klor-Con M20] 20 meq PO BID 08/19/15 Diltiazem Cd [Cardizem Cd -] 240 mg PO BID #60 cap.cd.24h 09/07/15 Aclidinium [place] [Tudorza -] 1 puff IH BID #1 inhaler 01/28/17 Metolazone [Zaroxolyn -] 2.5 mg PO Q2D@1000 #30 tablet 01/28/17 Spironolactone [Aldactone -] 25 mg PO DAILY #30 tablet 01/28/17 Carvedilol 6.25 mg PO BID 05/20/19 Nitroglycerin Sublingual [Nitrostat -] 0.6 mg SL DAILY PRN 05/20/19 This patient is new to me today: No Emergency Visit: Yes ED Registration Date: 05/20/19 Care time: The patient presented to the Emergency Department on the above date and was hospitalized for further evaluation of their emergent condition. Critical Care patient: No - Discharge Referral Referred to [facility] Med P.C.: No ATTENDING PHYSICIAN STATEMENT I saw and evaluated the patient. I reviewed the resident's note and discussed the case with the resident. I agree with the resident's findings and plan as documented. SUBJECTIVE: OBJECTIVE: ASSESSMENT AND PLAN:
== END 2019-05-26 14:12 | disposition home or self-care (01) | DRG 605 ==
LOC: JER 17:32 → JERBED 05-20 01:34 → J2W 05-20 16:33
PROVIDERS: ADMIT Internal Medicine; ATTEND Hospitalist
PROC: 30233N1 Transfusion of Nonautologous Red Blood Cells into Peripheral Vein, Percutaneous Approach (ICD-10-PCS; principal; 2019-05-24)
DX: S70.11XA Contusion of right thigh, initial encounter (principal); N17.9 Acute kidney failure, unspecified; D62 Acute posthemorrhagic anemia; I50.32 Chronic diastolic (congestive) heart failure; N39.0 Urinary tract infection, site not specified; M25.551 Pain in right hip; E78.5 Hyperlipidemia, unspecified; I25.10 Atherosclerotic heart disease of native coronary artery without angina pectoris; E03.9 Hypothyroidism, unspecified; M25.562 Pain in left knee; M25.561 Pain in right knee; I44.7 Left bundle-branch block, unspecified; D72.829 Elevated white blood cell count, unspecified; I48.2 Chronic atrial fibrillation; S70.01XA Contusion of right hip, initial encounter; R55 Syncope and collapse; S50.01XA Contusion of right elbow, initial encounter; S30.0XXA Contusion of lower back and pelvis, initial encounter; J44.9 Chronic obstructive pulmonary disease, unspecified; E87.5 Hyperkalemia; I11.0 Hypertensive heart disease with heart failure; W01.0XXA Fall on same level from slipping, tripping and stumbling without subsequent striking against object, initial encounter; Z95.2 Presence of prosthetic heart valve; Y92.488 Other paved roadways as the place of occurrence of the external cause; Y93.89 Activity, other specified; Z95.0 Presence of cardiac pacemaker; Z79.01 Long term (current) use of anticoagulants; Z95.1 Presence of aortocoronary bypass graft
CPT/HCPCS: 36415; 36430; 70450-TC; 73523-TC-FY; 80048; 80053; 80162; 81003; 82550; 82553; 82565; 82962; 83735; 83880; 84100; 84443; 84484; 84540; 85025; 85610; 85730; 86850; 86900; 86901; 86922; 93005; 93010; 93306-TC; 93880-TC; 97116-GP; 97162-GP; 99285-25; J7030; P9038; P9058

== ENCOUNTER 2019-06-02 13:39 | Inpatient (IN) | payer OTHER | END 2019-06-04 11:38 | disposition home or self-care (01) | LOC: JER 13:39 → JERBED 18:40 → J4W 21:40 ==

== ENCOUNTER 2019-08-01 11:05 | Inpatient (IN) | payer OTHER ==
--- NOTE | 2019-08-01 11:32 | PDOC ---
History of Present Illness - General Chief Complaint: Weakness Stated Complaint: WEAKNESS Time Seen by Provider: 08/01/19 11:10 History Source: Patient, EMS, Family Exam Limitations: No Limitations - History of Present Illness Initial Comments: 08/01/19 11:31 78F with a PMH of COPD, A-fib (currently not on coumadin), CHF (NYHA Class II), CAD (s/p CABG), hypothyroidism, sick sinus syndrome (s/p pacemaker), AV replacement, MV replacement who presents to the ER via EMS for a wellness check. The patient is with her son and granddaughter who help provide the history. Per the son, he tried reaching out to the patient 4 days ago and was told she was not feeling well with URI symptoms. He tried reaching her yesterday and today with no call back and called EMS for a wellness check. The patient was found in her house sitting on her couch. She denies fever, chills, nausea, vomiting, CP, SOB, cough, dysuria, hematuria, falls. Past History - Past Medical History Allergies/Adverse Reactions: Allergies Allergy/AdvReac Type Severity Reaction Status Date / Time No Known Allergies Allergy Verified 08/01/19 11:06 Home Medications: Ambulatory Orders Albuterol Sulfate [Proair Hfa -] 1 - 2 inh PO PRN PRN 05/28/12 Cholecalciferol (Vitamin D3) [Vitamin D] 1,000 unit PO DAILY 05/28/12 Digoxin [Lanoxin -] 0.125 mg PO DAILY 05/28/12 Furosemide [Lasix -] 40 mg PO DAILY 05/28/12 Levothyroxine [Synthroid -] 175 mcg PO DAILY 05/28/12 Multivits W-Fe,Other Min/Lut [Centrum Silver Ultra Women Tab] 1 each PO DAILY Atorvastatin Calcium [Lipitor] 10 mg PO HS 06/24/13 Ranitidine HCl [Zantac] 150 mg PO BID 06/24/13 Acetaminophen [Tylenol] 650 mg PO PRN PRN 08/19/15 Potassium Chloride [Klor-Con M20] 20 meq PO BID 08/19/15 Diltiazem Cd [Cardizem Cd -] 240 mg PO BID #60 cap.cd.24h 09/07/15 Spironolactone [Aldactone -] 25 mg PO DAILY #30 tablet 01/28/17 Carvedilol 6.25 mg PO BID 05/20/19 Umeclidinium [place] [Incruse Ellipta] 62.5 mcg IH DAILY 05/26/19 Beclomethasone Dipropionate [Qvar] 8.7 gm IH BID 06/03/19 Cefuroxime Axetil [Ceftin -] 250 mg PO BID #10 tablet 06/03/19 Nitroglycerin Sublingual [Nitrostat -] 0.6 mg SL DAILY PRN 06/03/19 Cefuroxime Axetil [Ceftin -] 250 mg PO BID #10 tablet 06/04/19 Anemia: No Asthma: Yes Cancer: No Cardiac Disorders: Yes (Atrial fibrillation,Cardiac cath (2002), S/P MAZE procedure) CVA: No COPD: No CHF: No Dementia: No Diabetes: No GI Disorders: No Disorders: No HTN: Yes Hypercholesterolemia: Yes Liver Disease: No Seizures: No Thyroid Disease: Yes (Hypothyroidism) - Surgical History Abdominal Surgery: Yes (Total Hysterectomy) Appendectomy: No Cardiac Surgery: Yes (CABG 07/20/15 (double bypass) AVR, MVR, Maze procedure) Cholecystectomy: Yes Lung Surgery: Yes (Throcentesis/Left - 08/23/2015) Neurologic Surgery: No Orthopedic Surgery: Yes (Bilateral arthroscopy) - Immunization History Immunization Up to Date: No - Suicide/Smoking/Psychosocial Hx Smoking History: Never smoked Have you smoked in the past 12 months: No If you are a former smoker, when did you quit?: 50 years ago Information on smoking cessation initiated: No Hx Alcohol Use: No Drug/Substance Use Hx: No Substance Use Type: Alcohol Hx Substance Use Treatment: No Review of Systems - Review of Systems Able to Perform ROS?: Yes Comments:: 08/01/19 12:56 GENERAL/CONSTITUTIONAL: No fever or chills. No weakness. HEAD, EYES, EARS, NOSE AND THROAT: No change in vision. No ear pain or discharge. No sore throat. CARDIOVASCULAR: No chest pain, palpitations, or lightheadedness. RESPIRATORY: No cough, wheezing, shortness of breath, or hemoptysis. GASTROINTESTINAL: No abdominal pain, nausea, vomiting, diarrhea, or constipation. GENITOURINARY: No dysuria, frequency, hematuria, or change in urination. MUSCULOSKELETAL: No joint or muscle swelling or pain. No neck or back pain. SKIN: No rash or lesions. NEUROLOGIC: No headache, numbness, tingling, focal weakness, loss of consciousness, or change in strength/sensation. Is the patient limited Irish proficient: No *Physical Exam - Vital Signs Last Vital Signs Temp Pulse Resp BP Pulse Ox 99.3 F 101 H 20 136/79 97 08/01/19 11:06 08/01/19 11:06 08/01/19 11:06 08/01/19 11:06 08/01/19 11:06 - Physical Exam Comments: 08/01/19 12:57 GENERAL: Well developed, well nourished. Awake and alert. No acute distress. HEENT: Normocephalic, atraumatic. Hearing grossly normal. Moist mucous membranes. PERRLA, EOMI. No conjunctival pallor. Sclera are non-icteric. NECK: Supple. Full ROM. No JVD. CARDIOVASCULAR: Regular rate and rhythm. No murmurs, rubs, or gallops. PULMONARY: No evidence of respiratory distress. Lungs clear to auscultation bilaterally. No wheezing, rales or rhonchi. ABDOMINAL: Soft. Non-tender. Non-distended. No rebound or guarding. GENITOURINARY: No CVA tenderness bilaterally. MUSCULOSKELETAL: No midline spinal tenderness. Normal range of motion at all joints. No bony deformities or tenderness. EXTREMITIES: No cyanosis. No clubbing. No edema. No calf tenderness or swelling. SKIN: Warm and dry. Normal capillary refill. No rashes. No jaundice. NEUROLOGICAL: Alert, awake, appropriate. Cranial nerves 2-12 grossly intact. 5/ 5 strength in deltoids, biceps, triceps, quadriceps, hamstrings, and gastrocnemius. Normal speech. Gait is normal without ataxia. PSYCHIATRIC: Cooperative. Good eye contact. Appropriate mood and affect. ED Treatment Course - LABORATORY CBC & Chemistry Diagram: 08/01/19 11:38 08/01/19 11:38 - RADIOLOGY Radiology Studies Ordered: Category Date Time Status HEAD CT WITHOUT CONTRAST [CT] Stat CT Scan 08/01/19 11:28 Ordered CHEST X-RAY PORTABLE* [RAD] Stat Radiology 08/01/19 11:18 Ordered Medical Decision Making - Medical Decision Making 08/01/19 12:58 78F with MMP who presents to the ER via EMS for a wellness check. Pt has no acute complaints but asked for bedpans repeatedly, making UTI a concern. Confirmed by UA. CBC shows mildly elevated WBC at 14. CXR negative on preliminary read. Will admit for UTI causing sepsis as pt was febrile and tachycardic. Pending CTH. 08/01/19 14:27 CTH and c-spine negative for acute pathology. Will admit for UTI causing sepsis. Trop 0.34, likely demand. Will trend. 08/01/19 14:33 Microblogged for admission. 08/01/19 15:[address] Brown for admission. *DC/Admit/Observation/Transfer Diagnosis at time of Disposition: Elevated troponin UTI (urinary tract infection) Qualifiers: Urinary tract infection type: site unspecified Hematuria presence: without hematuria Qualified Code(s): N39.0 - Urinary tract infection, site not specified Sepsis Qualifiers: Sepsis type: sepsis due to unspecified organism Sepsis acute organ dysfunction status: unspecified Qualified Code(s): A41.9 - Sepsis, unspecified organism - Discharge Dispostion Condition at time of disposition: Guarded Decision to Admit order: Yes - Referrals Referrals: Luis Fernando Bernal MD [Primary Care Provider] - - Patient Instructions - Post Discharge Activity
[2019-08-01 11:53] LABS: EPI CELLS 9.3 /HPF (0-5/HPF); HYALINE CASTS 21 /lpf (0-8); PH,URINE 5.5 (5.0-8.0); URINE APPEARANCE TURBID; URINE BACTERIA 375.6 /hpf (NEGATIVE); URINE BILIRUBIN NEGATIVE (NEGATIVE); URINE COLOR YELLOW; URINE GLUCOSE (UA) NEGATIVE (NEGATIVE); URINE KETONE NEGATIVE (NEGATIVE); URINE LEUK ESTERASE 2+ (NEGATIVE); URINE NITRITE POSITIVE (NEGATIVE); URINE PROTEIN 2+ (NEGATIVE); URINE RBC 12 /hpf (0-4); URINE WBC 85 /hpf (0-5)
[2019-08-01] MEDS ORDERED: ACETAMINOPHEN 1000 MG/100 ML VIAL (NON FORMULARY) IVPB ONE (11:55)
[2019-08-01] MEDS ORDERED: SODIUM CHLORIDE 0.9% 1000 ML INFUS.BAG IV ONE (11:55)
[2019-08-01 12:05] LABS: BASO % 0.3 % (0-2.0); HEMATOCRIT 40.7 % (32.4-45.2); HEMOGLOBIN 13.3 GM/dL (10.7-15.3); LYMPH % 3.7 % (8-40); MCH 29.2 pg (25.7-33.7); MCHC 32.8 g/dl (32.0-36.0); MEAN CELL VOLUME 89.2 fl (80-96); MEAN PLT VOLUME 8.8 fl (7.5-11.1); MONO % 8.6 % (3.8-10.2); NEUT % 87.4 % (42.8-82.8); PLATELET COUNT 163 K/MM3 (134-434); RBC 4.57 M/mm3 (3.60-5.2); RDW 15.6 % (11.6-15.6); WHITE BLOOD COUNT 14.3 K/mm3 (4.0-10.0)
[2019-08-01] MEDS ORDERED: ACETAMINOPHEN INJECTION 100 ML IVPB ONE (12:05)
[2019-08-01] MEDS ORDERED: CEFTRIAXONE 1,000 MG in DEXTROSE 5%-WATER - 50 ML IVPB ONE (12:08)
[2019-08-01] MEDS ORDERED: CEFTRIAXONE 1 GM/50 ML BAG ONE (12:14)
[2019-08-01 12:18] LABS: INR 1.89 (0.83-1.09); PROTHROMBIN TIME (PATIENT) 22.5 SEC (9.7-13.0)
[2019-08-01 12:20] LABS: ACTIVATED PTT 30.3 SECONDS (25.2-36.5)
[2019-08-01 12:30] LABS: PHOSPHOROUS 2.8 mg/dL (2.5-4.9)
[2019-08-01 12:32] LABS: ALBUMIN 2.6 g/dl (3.4-5.0); BILIRUBIN,TOTAL 0.7 mg/dL (0.2-1); BLOOD UREA NITROGEN 36.6 mg/dL (7-18); CALCIUM 8.9 mg/dL (8.5-10.1); TOT PROT 7.2 g/dl (6.4-8.2)
--- NOTE | 2019-08-01 13:05 | PDOC ---
Attending Attestation - Resident Resident Name: Shai Sutherland - ED Attending Attestation I have performed the following: I have examined & evaluated the patient, The case was reviewed & discussed with the resident, I agree w/resident's findings & plan, Exceptions are as noted - HPI HPI: 08/01/19 12:57 78yo F hx afib (not on AC), CHF, CAD s/p CABG, hypothyroidism, sick sinus syndrome s/p pacemaker, AVR and MVR presents to the emergency department after her family was unable to get in touch with her for 3 days. History is obtained from patient's son as the patient currently appears confused. He reports he was unable to get in touch with her this past Thursday, Thursday and Thursday. He attempted to visit her today but when no one answered the door, he called 911. After the fire department broke the door down, the patient was found sitting on the couch confused. Patient's son reports that at baseline she is a AO 3 and does not have a history of dementia. Patient is currently complaining only of urinary frequency. She denies any falls. She denies any dizziness, focal weakness or numbness, headaches, chest pain, shortness of breath, nausea, vomiting, diarrhea, abdominal pain, lower extremity edema. - Physicial Exam PE: 08/01/19 13:05 GENERAL: Awake, alert, oriented to name and hospital, in no acute distress HEAD: No signs of trauma EYES: PERRLA, EOMI, sclera anicteric, conjunctiva clear ENT: Auricles normal inspection, hearing grossly normal, nares patent, oropharynx clear without exudates. Dry MM NECK: Normal ROM, supple, no lymphadenopathy, JVD, or masses LUNGS: Breath sounds equal, clear to auscultation bilaterally. No wheezes, and no crackles HEART: Regular rate and rhythm, normal S1 and S2, no murmurs, rubs or gallops ABDOMEN: Soft, nontender, normoactive bowel sounds. No guarding, no rebound. No masses RECTAL: Rectal temp 102 EXTREMITIES: Normal range of motion, no edema. No clubbing or cyanosis. No cords, erythema, or tenderness BACK: No midline cervical, thoracic, or lumbar ttp. Pelvis stable. NEUROLOGICAL: Normal speech, cranial nerves intact, equal strength and sensation b/l. Gait deferred. SKIN: Warm, Dry, normal turgor, no rashes or lesions noted. - Medical Decision Making 08/01/19 13:07 78yo presents to the ED with AMS and urinary frequency. Vitals with fever,tachycardia -> sepsis w/u initiated Plan for labs, UA, CXR, CTH for AMS w/u Pt denies falls but is confused, so history is not reliable - on exam, no gross evidence of trauma. Will add on CT c-spine and pelvis film for trauma w/u Anticipate admission Heart Score/ECG Review #1 08/01/19 13:18 EKG read and int by me: Afib, rate 96. TWI with mild STD inferiorly. Compared to EKG from 06/02/2019, STD today are less. Also STD in V5-V6 have resolved.
[2019-08-01 14:00] LABS: VENOUS PC02 33.3 mmHg (38-52); VENOUS PH 7.48 (7.31-7.41); VENOUS PO2 72.9 mmHg (28-48)
[2019-08-01] MEDS ORDERED: ACETAMINOPHEN 325 MG TABLET (FP) PO PRN (15:48)
--- NOTE | 2019-08-01 15:58 | HP ---
CHIEF COMPLAINT: confusion PCP: Dr. Bernal HISTORY OF PRESENT ILLNESS: Patient is a 78 y/o female with a history of COPD, afib (off coumadin), HF, CAD , hypothyroidism, pacemaker, sick sinus syndrome, AV and MV replacement who presents for confusion. The patient typically calls her family members once a day. When the patients son had not heard from his mother in a few days they had the police do a wellness check. Patient was found to be confused and was brought to the hospital. Patient denies any complaints but states she needs to urinate. Patient reports she has had UTI's in the past. Per patient family she is very active, lives alone, and takes all her medications. Patient urinates on her own in a toilet. Patient is also compliant with her doctor visits. Denies nausea vomiting, headache, dysuria or hematuria. Per patient she is no longer on anticoagulation, patients son is not sure. Anticoagulation was stopped three months ago after a fall, called pharmacy and patient picked up warfarin in June. ER course was notable for: (1) Ceftriaxone (2) (3) Recent Travel: denies PAST MEDICAL HISTORY: COPD, afib, HF, CAD, hypothyroidism, pacemaker, sick sinus syndrome, AV and MV replacement PAST SURGICAL HISTORY: CABG ( 6 years ago x2 w/MAZE and valves), Aortic and mitral valve replacement, cholecystectomy Social History: Smoking: denies Alcohol: denies Drugs: denies Allergies No Known Allergies Allergy (Verified 08/01/19 11:06) HOME MEDICATIONS: Home Medications Medication Instructions Recorded Albuterol Sulfate [Proair Hfa -] 1 - 2 inh PO PRN PRN 05/28/12 Cholecalciferol (Vitamin D3) 1,000 unit PO DAILY 05/28/12 [Vitamin D] Digoxin [Lanoxin -] 0.125 mg PO DAILY 05/28/12 Furosemide [Lasix -] 40 mg PO DAILY 05/28/12 Levothyroxine [Synthroid -] 175 mcg PO DAILY 05/28/12 Multivits W-Fe,Other Min/Lut 1 each PO DAILY 05/28/12 [Centrum Silver Ultra Women Tab] Atorvastatin Calcium [Lipitor] 10 mg PO HS 06/24/13 Ranitidine HCl [Zantac] 150 mg PO BID 06/24/13 Acetaminophen [Tylenol] 650 mg PO PRN PRN 08/19/15 Potassium Chloride [Klor-Con M20] 20 meq PO BID 08/19/15 Diltiazem Cd [Cardizem Cd -] 240 mg PO BID #60 cap.cd.24h 09/07/15 Spironolactone [Aldactone -] 25 mg PO DAILY #30 tablet 01/28/17 Carvedilol 6.25 mg PO BID 05/20/19 Umeclidinium [place] [Incruse 62.5 mcg IH DAILY 05/26/19 Ellipta] Beclomethasone Dipropionate [Qvar] 8.7 gm IH BID 06/03/19 Cefuroxime Axetil [Ceftin -] 250 mg PO BID #10 tablet 06/03/19 Nitroglycerin Sublingual 0.6 mg SL DAILY PRN 06/03/19 [Nitrostat -] Cefuroxime Axetil [Ceftin -] 250 mg PO BID #10 tablet 06/04/19 REVIEW OF SYSTEMS CONSTITUTIONAL: Absent: fever, chills, diaphoresis, generalized weakness, malaise, loss of appetite, weight change HEENT: Absent: rhinorrhea, nasal congestion, throat pain, throat swelling, difficulty swallowing, mouth swelling, ear pain, eye pain, visual changes CARDIOVASCULAR: Absent: chest pain, syncope, palpitations, irregular heart rate, lightheadedness , peripheral edema RESPIRATORY: Absent: cough, shortness of breath, dyspnea with exertion, orthopnea, wheezing, stridor, hemoptysis GASTROINTESTINAL: Absent: abdominal pain, abdominal distension, nausea, vomiting, diarrhea, constipation, melena, hematochezia GENITOURINARY: urgency Absent: dysuria, frequency, hesitancy, hematuria, flank pain, genital pain MUSCULOSKELETAL: Absent: myalgia, arthralgia, joint swelling, back pain, neck pain SKIN: Absent: rash, itching, pallor HEMATOLOGIC/IMMUNOLOGIC: Absent: easy bleeding, easy bruising, lymphadenopathy, frequent infections ENDOCRINE: Absent: unexplained weight gain, unexplained weight loss, heat intolerance, cold intolerance NEUROLOGIC: Absent: headache, focal weakness or paresthesias, dizziness, unsteady gait, seizure, mental status changes, bladder or bowel incontinence PSYCHIATRIC: Absent: anxiety, depression, suicidal or homicidal ideation, hallucinations. PHYSICAL EXAMINATION Vital Signs - 24 hr 08/01/19 08/01/19 11:06 11:57 Temperature 99.3 F 102 F H Pulse Rate 101 H Respiratory 20 Rate Blood Pressure 136/79 O2 Sat by Pulse 97 Oximetry (%) GENERAL: Awake, alert,A&O x2 HEAD: Normal with no signs of trauma. EYES: Pupils equal, round and reactive to light, extraocular movements intact, EARS, NOSE, THROAT: no erythema or ulcers noted in pharynx Moist mucous membranes. LUNGS: Breath sounds equal, clear to auscultation bilaterally. No wheezes, and no crackles. No accessory muscle use. HEART: irregularly irregular, 3/6 ystolic murmur at upper sternal border ABDOMEN: Soft, nontender, not distended, normoactive bowel sounds, MUSCULOSKELETAL: No CVA tenderness. LOWER EXTREMITIES: 2+ pulses, warm, well-perfused. No calf tenderness. No peripheral edema. SKIN: Warm, dry, normal turgor, no rashes or lesions noted, normal capillary refill. CBC,CMP WBC 14.3 K/mm3 (4.0-10.0) H 08/01/19 11:38 RBC 4.57 M/mm3 (3.60-5.2) 08/01/19 11:38 Hgb 13.3 GM/dL (10.7-15.3) 08/01/19 11:38 Hct 40.7 % (32.4-45.2) D 08/01/19 11:38 MCV 89.2 fl (80-96) 08/01/19 11:38 MCH 29.2 pg (25.7-33.7) 08/01/19 11:38 MCHC 32.8 g/dl (32.0-36.0) 08/01/19 11:38 RDW 15.6 % (11.6-15.6) 08/01/19 11:38 Plt Count 163 K/MM3 (134-434) 08/01/19 11:38 MPV 8.8 fl (7.5-11.1) 08/01/19 11:38 Absolute Neuts (auto) 12.5 K/mm3 (1.5-8.0) H 08/01/19 11:38 Neutrophils % 87.4 % (42.8-82.8) H 08/01/19 11:38 Lymphocytes % 3.7 % (8-40) L D 08/01/19 11:38 Monocytes % 8.6 % (3.8-10.2) 08/01/19 11:38 Eosinophils % 0.0 % (0-4.5) D 08/01/19 11:38 Basophils % 0.3 % (0-2.0) 08/01/19 11:38 Nucleated RBC % 0 % (0-0) 08/01/19 11:38 Sodium 134 mmol/L (136-145) L 08/01/19 11:38 Potassium 4.0 mmol/L (3.5-5.1) 08/01/19 11:38 Chloride 101 mmol/L (98-107) 08/01/19 11:38 Carbon Dioxide 24 mmol/L (21-32) 08/01/19 11:38 Anion Gap 9 MMOL/L (8-16) 08/01/19 11:38 BUN 36.6 mg/dL (7-18) H 08/01/19 11:38 Creatinine 1.0 mg/dL (0.55-1.3) 08/01/19 11:38 Est GFR (CKD-EPI)AfAm 62.05 08/01/19 11:38 Est GFR (CKD-EPI)NonAf 53.54 08/01/19 11:38 Random Glucose 99 mg/dL (74-106) 08/01/19 11:38 Lactic Acid 1.2 mmol/L (0.4-2.0) 08/01/19 11:58 Calcium 8.9 mg/dL (8.5-10.1) 08/01/19 11:38 Phosphorus 2.8 mg/dL (2.5-4.9) 08/01/19 11:38 Magnesium 2.0 mg/dL (1.8-2.4) 08/01/19 11:38 Total Bilirubin 0.7 mg/dL (0.2-1) 08/01/19 11:38 AST 52 U/L (15-37) H 08/01/19 11:38 ALT 71 U/L (13-61) H 08/01/19 11:38 Alkaline Phosphatase 143 U/L (45-117) H 08/01/19 11:38 Creatine Kinase 27 U/L (26-192) 08/01/19 11:38 Troponin I 0.34 ng/ml (0.00-0.05) H 08/01/19 11:38 Total Protein 7.2 g/dl (6.4-8.2) 08/01/19 11:38 Albumin 2.6 g/dl (3.4-5.0) L 08/01/19 11:38 ASSESSMENT/PLAN: Patient is a 78 y/o female with a history of COPD, afib (off coumadin), HF, CAD , hypothyroidism, pacemaker, sick sinus syndrome, AV and MV replacement who is admitted for AMS 2/2 to UTI. #AMS 2/2 to UTI with sepsis - meets sepsis criteria: temperature 102, WBC 14.3 - UA: positive ntrites, leukocyte esterase 2+, bacteria 275 - continue ceftriaxone 1 gm daily - 05/27 UCX: E. choli sensitive to ceftriaxone - 500 mL NS given, continue 75 mL of NS - f/u urine and blood cx - fall risk precautions - f/u with Dr. Caicedo #CHF preserved EF - Echo 05/20/19: EF 55-60%, mild concentric left ventricular hypertrophy - hx of Atrial and Mitral valve replacement - continue spironolactone #tropinemia likely 2/2 to Sepsis - trop .34, repeat trop .28 - no ST elevation on EKG - f/u with Dr. Gonzalez #hypothyroidism - continue levothyroxine 175 mcg po daily #afib with permanent pacemaker - irregularly irregular on ekg - continue digoxin .125 mg daily - carvedilol 6.25 po bid - cardizem 240 BID - Warfarin 4 mg M and F, 5mg other days #COPD - continue albuterol as needed - continue Ellipta #HLD - atorvastatin 10 mg po hs #elevated liver enzymes and alk phosp - likely 2/2 to sepsis - f/u RUQ US - avoid hepatotoxic medications - AST: 57, ALT: 71, alk phosp: 145 all 3 increased from previous visits #DVT ppx - Warfarin 4 mg M and F, 5mg other days FEN - NS @ 75 - low sodium diet Dispo: monitor on tele Visit type - Emergency Visit Emergency Visit: Yes ED Registration Date: 08/01/19 Care time: The patient presented to the Emergency Department on the above date and was hospitalized for further evaluation of their emergent condition. - New Patient This patient is new to me today: Yes Date on this admission: 08/02/19 - Critical Care Critical Care patient: No ATTENDING PHYSICIAN STATEMENT I saw and evaluated the patient. I reviewed the resident's note and discussed the case with the resident. I agree with the resident's findings and plan as documented. SUBJECTIVE: OBJECTIVE: ASSESSMENT AND PLAN:
[2019-08-01] MEDS ORDERED: SODIUM CHLORIDE 1,000 ML IV SCH ×2 (16:00→16:13)
[2019-08-01] MEDS ORDERED: ALBUTEROL SO4 8 GM HFA INHALER IH PRN ×3 (16:29→16:47)
--- NOTE | 2019-08-01 17:49 | PN ---
Teaching Attending Note Name of Resident: Ann Brown ATTENDING PHYSICIAN STATEMENT I saw and evaluated the patient. I reviewed the resident's note and discussed the case with the resident. I agree with the resident's findings and plan as documented. Seen and examined; known to me from prior admits. Agree with resident history and physical; and verified all luo findings as documented in their H and P. Personally verified all diagnostic tests unless indicated. Verifying issues with AC but she should be on AC with valve. Mentation altered but she is not lethargic, protecting airway. VS, labs, imaging reviewed NAD, AAOx2, resting in bed Irregular with known systolic murmur, no gallops or rubs NT ND +BS CN2-12 wnl, no fnd Normal mood, not agitated Old micro reviewed ASSESSMENT AND PLAN: Presrns with sepsis and AMS -AMS -Sepsis -HFpEF -Troponemia (likely Type 2 NSTEMI) -Valvular heart disease (prior echo reviewed) -Hx Hypothyroidism -UTI (r/o other source infection-she has had multiple infections and admissions) -Afib -AC use (she has valve and afib-need to verify-d/w resident)
[2019-08-01] MEDS ORDERED: WARFARIN NA 2 MG TABLET (UD) PO SCH (18:00)
--- NOTE | 2019-08-01 18:22 | EKG ---
Test Reason : Blood Pressure : / mmHG Vent. Rate : 096 BPM Atrial Rate : 127 BPM P-R Int : 000 ms QRS Dur : 108 ms QT Int : 368 ms P-R-T Axes : 000 046 000 degrees QTc Int : 464 ms ATRIAL FIBRILLATION WITH OCCASIONAL ventricular-paced complexes POSSIBLE ANTERIOR INFARCT , AGE UNDETERMINED ABNORMAL ECG WHEN COMPARED WITH ECG OF 02-JUN-2019 13:56, VENT. RATE HAS INCREASED BY 22 BPM Confirmed by SHREYA LANGE, CANDELARIO ([id number]) on 08/01/2019 6:22:07 PM Referred By: Confirmed By:CANDELARIO CASH MD
[2019-08-01] MEDS ORDERED: WARFARIN NA 1 MG TABLET (FP) ONE (18:27)
[2019-08-01] MEDS ORDERED: ATORVASTATIN CA 10 MG TABLET (FP) PO SCH (22:00)
[2019-08-02] MEDS: POTASSIUM CHLORIDE TABS 20 MEQ TABLET.ER (FP) PO SCH ×3 (00:02→21:20)
[2019-08-02] MEDS: RANITIDINE HCL 150 MG TABLET (FP) PO SCH ×2 (00:02→10:14)
[2019-08-02] MEDS: CARVEDILOL 6.25 MG TABLET (FP) PO SCH ×3 (00:02→21:20)
[2019-08-02 07:48] LABS: ALBUMIN 2.3 g/dl (3.4-5.0); BILIRUBIN,TOTAL 0.8 mg/dL (0.2-1); BLOOD UREA NITROGEN 27.9 mg/dL (7-18); CALCIUM 8.5 mg/dL (8.5-10.1); CREATININE 0.8 mg/dL (0.55-1.3); TOT PROT 6.6 g/dl (6.4-8.2)
[2019-08-02 07:55] LABS: HEMATOCRIT 42.3 % (32.4-45.2); MCH 29.7 pg (25.7-33.7); MCHC 33.1 g/dl (32.0-36.0); MEAN CELL VOLUME 89.9 fl (80-96); MEAN PLT VOLUME 9.2 fl (7.5-11.1); PLATELET COUNT 141 K/MM3 (134-434); RBC 4.71 M/mm3 (3.60-5.2); WHITE BLOOD COUNT 14.3 K/mm3 (4.0-10.0)
[2019-08-02] MEDS: ACETAMINOPHEN 325 MG TABLET (FP) PO PRN ×3 (08:00→21:20)
[2019-08-02] MEDS ORDERED: DIGOXIN 0.5 MG/2 ML AMPUL IVPUSH ONE (08:37)
[2019-08-02] MEDS ORDERED: ENOXAPARIN NA (PORCINE) 40 MG/0.4 ML DISP.SYRIN SQ SCH (10:00)
[2019-08-02] MEDS ORDERED: PATIENT'S OWN MEDICATION (NON-FORMULARY) (Levothyroxine [Synthroid -] 175 MCG) PO SCH (10:00)
[2019-08-02] MEDS ORDERED: FUROSEMIDE 40 MG TABLET (FP) PO SCH (10:00)
[2019-08-02] MEDS ORDERED: PATIENT'S OWN MEDICATION (NON-FORMULARY) (Beclomethasone Dipropionate [Qvar] 8.7 GM) IH SCH (10:00)
[2019-08-02] MEDS ORDERED: DEXTROSE 5%-WATER - 50 ML IVPB ONE ×2 (10:02→14:59)
[2019-08-02] MEDS ORDERED: cefTRIAXone SODIUM 1 GM VIAL ONE (10:02)
[2019-08-02] MEDS: LEVOTHYROXINE 150 MCG, LEVOTHYROXINE 25 MCG PO SCH (10:13)
[2019-08-02] MEDS: SPIRONOLACTONE 25 MG TABLET (FP) PO SCH (10:14)
[2019-08-02] MEDS: CEFTRIAXONE 1 GM in DEXTROSE 5%-WATER - 50 ML IVPB SCH (10:15)
--- NOTE | 2019-08-02 10:55 | PN ---
Teaching Attending Note Name of Resident: Abram Levy ATTENDING PHYSICIAN STATEMENT I saw and evaluated the patient. I reviewed the resident's note and discussed the case with the resident. I agree with the resident's findings and plan as documented. Seen and examined; mentation somewhat improved. She is afebrile and hemodynamically stable. Assuming that the underlying AMS was 2/2 toxic metabolic encephalopathy. Seen by neurology. Continue on abx per ID. Monitor on floor. Troponemia likely 2/2 sepsis with no changes on EKG and likely subendocardial ischemia evident. Need to r/o underlying infective process. R/ o endo. 10 sys ROS done and neagtive aside from HPI VS, labs, imaging reviewed NAD, AAO, resting in bed NC AT EOMI PERRLA RRR s1/2 ASSESSMENT AND PLAN:
[2019-08-02] MEDS: DIGOXIN 0.125 MG TABLET (FP) PO SCH (11:03)
--- NOTE | 2019-08-02 11:35 | CON.NEURO ---
Consult Consult Specialty:: NEUROLOGY-[facility] - History of Present Illness History of Present Illness: Patient is a 78 y/o female with a history of COPD, afib (off coumadin), HF, CAD , hypothyroidism, pacemaker, sick sinus syndrome, AV and MV replacement who presents for confusion. The patient typically calls her family members once a day. When the patients son had not heard from his mother in a few days they had the police do a wellness check. Patient was found to be confused and was brought to the hospital. Patient denies any complaints but states she needs to urinate. Patient reports she has had UTI's in the past. Per patient family she is very active, lives alone, and takes all her medications. Patient urinates on her own in a toilet. Patient is also compliant with her doctor visits. Denies nausea vomiting, headache, dysuria or hematuria. Per patient she is no longer on anticoagulation, patients son is not sure. Anticoagulation was stopped three months ago after a fall, called pharmacy and patient picked up warfarin in June. Reports she is nopt feeling confised now, c/o sweating, speech is dysarthric but fluent ER course was notable for: (1) Ceftriaxone - History Source History Provided By: Patient, Medical Record - Past Medical History Cardio/Vascular: Yes: AFIB, CAD, CHF, HTN, Hyperlipdemia, Other (PROSTHETIC HEART VALVES) Pulmonary: Yes: COPD Musculoskeletal: Yes: Osteoarthritis Endocrine: Yes: Hypothyroidism - Past Surgical History Past Surgical History: Yes: Arthrosocopy (bilateral knees), CABG (x2 w/MAZE and valves), Cholecystectomy, Hysterectomy, Permanent Pacemaker, Valve Replacement ( aortic and mitral, bioprosthetics) - Alcohol/Substance Use Hx Alcohol Use: No History of Substance Use: reports: None - Smoking History Smoking history: Never smoked Have you smoked in the past 12 months: No If you are a former smoker, when did you quit?: 50 years ago - Social History Usual Living Arrangement: Alone ADL: Independent 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 [employer] Home Medications - Allergies Allergies/Adverse Reactions: Allergies Allergy/AdvReac Type Severity Reaction Status Date / Time No Known Allergies Allergy Verified 08/01/19 11:06 - Home Medications Home Medications: Ambulatory Orders Albuterol Sulfate [Proair Hfa -] 1 - 2 inh PO PRN PRN 05/28/12 Cholecalciferol (Vitamin D3) [Vitamin D] 1,000 unit PO DAILY 05/28/12 Digoxin [Lanoxin -] 0.125 mg PO DAILY 05/28/12 Furosemide [Lasix -] 40 mg PO DAILY 05/28/12 Levothyroxine [Synthroid -] 175 mcg PO DAILY 05/28/12 Multivits W-Fe,Other Min/Lut [Centrum Silver Ultra Women Tab] 1 each PO DAILY Atorvastatin Calcium [Lipitor] 10 mg PO HS 06/24/13 Ranitidine HCl [Zantac] 150 mg PO BID 06/24/13 Acetaminophen [Tylenol] 650 mg PO PRN PRN 08/19/15 Potassium Chloride [Klor-Con M20] 20 meq PO BID 08/19/15 Diltiazem Cd [Cardizem Cd -] 240 mg PO BID #60 cap.cd.24h 09/07/15 Spironolactone [Aldactone -] 25 mg PO DAILY #30 tablet 01/28/17 Carvedilol 6.25 mg PO BID 05/20/19 Umeclidinium [place] [Incruse Ellipta] 62.5 mcg IH DAILY 05/26/19 Beclomethasone Dipropionate [Qvar] 8.7 gm IH BID 06/03/19 Nitroglycerin Sublingual [Nitrostat -] 0.6 mg SL DAILY PRN 06/03/19 Physical Exam-Neuro Vital Signs: Vital Signs Temperature 98.9 F 08/02/19 10:00 Pulse Rate 50 L 08/02/19 11:03 Respiratory Rate 20 08/02/19 10:00 Blood Pressure 147/77 08/02/19 08:00 O2 Sat by Pulse Oximetry (%) 94 L 08/02/19 10:00 Labs: CBC, BMP 08/02/19 06:08 08/02/19 06:08 INR, PTT INR 1.89 (0.83-1.09) H 08/01/19 11:38 - Neuro Exam Level Of Consciousness: Yes: Alert, Oriented to Person, Oriented to Place (Not to date) Eyes: Yes: RUSLAN Speech: Garbled (?? buccolingual/edentulouis dysarthria) Dominant Hand: Right Mini Mental Exam: Intact comprehension, mildly impaired attention DTR's: 0 Left Achilles, 0 Right Achilles, 1+ Left Bicep, 1+ Right Bicep, 1+ Left Tricep, 1+ Right Tricep, 1+ Left Brachioradialis, 1+ Right Brachioradialis Babinski: Present (bilat) Response to light touch: Normal Response to pain prick: Normal Motor Strength: 4/5: Left Leg, Right Leg, 5/5: Left Arm, Right Arm Gait: Deferred Imaging - Results Cat Scan: Report Reviewed (Left basal ganglia chronic lacunar infarct) Assessment/Plan Pt. with mild encephalopathy likely infectious/metabolic etiology. No evid of new neurologic event. Infection being rx. Thank you, Gian Harden MD
--- NOTE | 2019-08-02 12:05 | PN ---
Progress Note (short form) - Note Progress Note: HPI: Continues to have fevers throughout the night correlating with her tachycardia on telemetry monitoring. Pt's mentation improved compared to previous notes. HPI limited 2/2 to patients orientation, however denies any shortness of breath, chest and abdominal pain. PE: Vital Signs Period Temp Pulse Resp BP Sys/Agudelo Pulse Ox Last 24 Hr 97.5 F-101 F 50-132 20-20 126-153/61-77 94-96 CBC, BMP 08/02/19 06:08 08/02/19 06:08 Hepatic Panel Total Bilirubin 0.8 mg/dL (0.2-1) 08/02/19 06:08 AST 67 U/L (15-37) H 08/02/19 06:08 ALT 72 U/L (13-61) H 08/02/19 06:08 Alkaline Phosphatase 148 U/L (45-117) H 08/02/19 06:08 Albumin 2.3 g/dl (3.4-5.0) L 08/02/19 06:08 Gen: Awake, alert, oriented x2 HEENT: NC/AT, CHRISTY, EOMI, MMM LUNGS: CTA throughout no accessory muscle use CARD: Irregularly irregular with 3/6 systolic murmur noted. HR ABD: Soft Nt/ND, normoactive BS, no hepatomegaly noted EXT: 2+ DP pulses, no peripheral edema noted SKIN: No rashes or lesions. A/P Acute Metabolic Encephalopathy 2/2 to UTI HFpEF Subendocardial ischemia Transaminitis with elevated Alk phos COPD SSS s/p PPM placement Atrial fibrillation Hypothyroidism --Patient remains febrile throughout the night, monitor fever trend --Urine and blood cultures pending; to f/u --Continue Rocephin while cultures and sensitivities --Continue Afib rate control and AC medications: --Coreg 6.25mg BID PO --Cardizem 240mg BID --Digoxin 0.125mg PO daily (most recent dig level low) --Continue Warfarin scheduling doses (pt filled Rx in outpatient pharmacy recently) --Continue Aldactone 24mg qdaily due to hx of HFpEF --Continue Synthroid 175mcg qdaily; repeat TSH tomorrow AM --Demand ischemia 2/2 to sepsis picture -- FEN: Fluids - currently euvolemic Electrolyte abnormalities: No abnormalities Nutrition: Sodium controlled PPX: DVT - Already on Warfarin GI - Ranitidine BID Dispo: continue to monitor and await culture/sensitivies Case discussed with Dr. Norberto Levy, DO - IM PGY-3
--- NOTE | 2019-08-02 13:09 | CON.ID ---
Consult Consult Specialty:: infectious diseases Reason for Consultation:: weakness,lethargy - History of Present Illness Chief Complaint: lethargy weakness History of Present Illness: 78 y/o female with a history of COPD, afib (off coumadin), HF, CAD, hypothyroidism, pacemaker, sick sinus syndrome, AV and MV replacement who presents for confusion. The patient typically calls her family members once a day. When the patients son had not heard from his mother in a few days they had the police do a wellness check. Patient was found to be confused and was brought to the hospital. Patient denies any complaints but states she needs to urinate. Patient reports she has had UTI's in the past. Per patient family she is very active, lives alone, and takes all her medications. Patient urinates on her own in a toilet. Patient is also compliant with her doctor visits. Denies nausea vomiting, headache, dysuria or hematuria. Per patient she is no longer on anticoagulation, patients son is not sure. Anticoagulation was stopped three months ago after a fall, called pharmacy and patient picked up warfarin in June. - History Source History Provided By: Patient Limitations to Obtaining History: Clinical Condition - Past Medical History Cardio/Vascular: Yes: AFIB, CAD, CHF, HTN, Hyperlipdemia, Other (PROSTHETIC HEART VALVES) Pulmonary: Yes: COPD Musculoskeletal: Yes: Osteoarthritis Endocrine: Yes: Hypothyroidism - Past Surgical History Past Surgical History: Yes: Arthrosocopy (bilateral knees), CABG (x2 w/MAZE and valves), Cholecystectomy, Hysterectomy, Permanent Pacemaker, Valve Replacement ( aortic and mitral, bioprosthetics) - Alcohol/Substance Use Hx Alcohol Use: No History of Substance Use: reports: None - Smoking History Smoking history: Never smoked Have you smoked in the past 12 months: No If you are a former smoker, when did you quit?: 50 years ago - Social History Usual Living Arrangement: Alone ADL: Independent 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 [employer] Home Medications - Allergies Allergies/Adverse Reactions: Allergies Allergy/AdvReac Type Severity Reaction Status Date / Time No Known Allergies Allergy Verified 08/01/19 11:06 - Home Medications Home Medications: Ambulatory Orders RX: Cholecalciferol (Vitamin D3) [Vitamin D] 1,000 unit PO DAILY 05/28/12 RX: Furosemide [Lasix -] 40 mg PO DAILY 05/28/12 RX: Levothyroxine [Synthroid -] 175 mcg PO DAILY 05/28/12 RX: Multivits W-Fe,Other Min/Lut [Centrum Silver Ultra Women Tab] 1 each PO DAILY 05/28/12 RX: Atorvastatin Calcium [Lipitor] 10 mg PO HS 06/24/13 RX: Ranitidine HCl [Zantac] 150 mg PO BID 06/24/13 RX: Acetaminophen [Tylenol] 650 mg PO PRN PRN 08/19/15 RX: Potassium Chloride [Klor-Con M20] 20 meq PO BID 08/19/15 RX: Diltiazem Cd [Cardizem Cd -] 240 mg PO BID #60 cap.cd.24h 09/07/15 RX: Umeclidinium [place] [Incruse Ellipta] 62.5 mcg IH DAILY 05/26/19 RX: Acetaminophen [Tylenol .Regular Strength -] 650 mg PO Q6H PRN tablet RX: Albuterol Sulfate Inhaler - [Ventolin HFA Inhaler -] 1 puff IH Q4H PRN inhaler 08/16/19 RX: Carvedilol [Coreg -] 12.5 mg PO BID tablet 08/16/19 RX: Ceftriaxone [Rocephin -] 1 gm IVPB DAILY vial 08/16/19 RX: Daptomycin [Cubicin (Restricted To Id) -] 700 mg IVPB Q24H vial 08/16/19 RX: Digoxin [Lanoxin -] 0.125 mg PO DAILY tablet 08/16/19 RX: Furosemide Injection [Lasix Injection -] 40 mg IVPUSH DAILY vial 08/16/19 RX: Gabapentin [Neurontin -] 100 mg PO TID capsule 08/16/19 RX: Levothyroxine [Synthroid -] 175 mcg PO DAILY@0700 tablet 08/16/19 RX: Lidocaine 5% Patch [Lidoderm -] 1 patch TP DAILY patch 08/16/19 RX: Lidocaine Patch Removal [Lidoderm Patch Removal] 1 each MC DAILY@2200 each 08/16/19 RX: Mometasone Furoate [Asmanex 220Mcg -] 1 puff IH BID inhaler 08/16/19 RX: Pantoprazole Sodium [Protonix -] 40 mg PO DAILY tablet.ec 08/16/19 RX: Rifampin [Rifadin -] 300 mg PO BID capsule 08/16/19 RX: Spironolactone [Aldactone -] 25 mg PO DAILY tablet 08/16/19 Review of Systems - Review of Systems Constitutional: reports: Lethargy, Weakness Eyes: reports: No Symptoms HENT: reports: No Symptoms Neck: reports: No Symptoms Cardiovascular: reports: No Symptoms Respiratory: reports: No Symptoms Gastrointestinal: reports: No Symptoms Genitourinary: reports: Burning, Frequency Musculoskeletal: reports: No Symptoms Integumentary: reports: No Symptoms Neurological: reports: No Symptoms Endocrine: reports: No Symptoms Hematology/Lymphatic: reports: No Symptoms Psychiatric: reports: No Symptoms Physical Exam Vital Signs: Vital Signs Temperature 98.9 F 08/02/19 10:00 Pulse Rate 50 L 08/02/19 11:03 Respiratory Rate 20 08/02/19 10:00 Blood Pressure 147/77 08/02/19 08:00 O2 Sat by Pulse Oximetry (%) 94 L 08/02/19 10:00 Constitutional: Yes: Thin, Other (fatigue) Neck: Yes: Supple, Trachea Midline Cardiovascular: Yes: Pulse Irregular, S1, S2 Respiratory: Yes: Regular, CTA Bilaterally Gastrointestinal: Yes: Normal Bowel Sounds, Soft Musculoskeletal: Yes: WNL Extremities: Yes: Other Neurological: Yes: Alert, Oriented Psychiatric: Yes: Alert, Oriented Labs: CBC, BMP 08/02/19 06:08 08/02/19 06:08 Imaging - Results Chest X-ray: Report Reviewed, Image Reviewed Cat Scan: Report Reviewed, Image Reviewed Assessment/Plan A/P Acute Metabolic Encephalopathy Transaminitis with elevated Alk phos COPD SSS s/p PPM placement Atrial fibrillation Hypothyroidism uti gm positive bacteremia plan abx await for all cx reports nutrition rest as per the team
[2019-08-02] MEDS ORDERED: FUROSEMIDE 20 MG TABLET (FP) PO ONE (14:00)
[2019-08-02] MEDS ORDERED: PIPERACILLIN/TAZOBACTAM 3.375 GM VIAL IVPB ONE (14:58)
[2019-08-02] MEDS: PIPERACILLIN/TAZOB 3.375 GM 3.375 GM in DEXTROSE 5%-WATER - 50 ML IVPB SCH ×2 (15:02→17:39)
[2019-08-02] MEDS ORDERED: VANCOMYCIN HCL 1,250 MG in DEXTROSE 5%-WATER - 250 ML IVPB ONE (15:40)
[2019-08-02] MEDS ORDERED: SODIUM CHLORIDE 1,000 ML IV SCH (15:45)
--- NOTE | 2019-08-02 16:40 | CON.GI ---
Consult Consult Specialty:: Gastroenterology Referred by:: Dr Abram Levy Reason for Consultation:: Confusion - History of Present Illness Chief Complaint: Confusion History of Present Illness: 78F failed to communicate with her children as is her routine prompting them to contact local responders who found her to be confused at home. She has no recollection of the last few days. She denies GIRON, cough, dyspnea, abdominal pain , diarrhea, oral pain, earache, recent macerations, urinary frequency or burning on urination. No recent known dental work. She was found to have a fever of 102 in the ER. Her LFTs are only mildly elevated but her GB has been removed. When I last saw her in the office on 03/03/19 I advised colonoscopy for adenoma surveillance but she opted against ever having any more colonoscopies. She had a large rectal tubulovillous adenoma removed in 2011. Her last colonoscopy was done on 10/30/14 and led to the removal of a small transverse colon adenoma as well as small cecal and transverse colon hyperplastic polyps. Cecal angiodysplasias and universal diverticulosis were found. Her A/C was recently stopped after she suffered a fall. Her head CT does not reveal a CVA or bleed. - History Source History Provided By: Patient, Medical Record Limitations to Obtaining History: Other (confusion) - Past Medical History Cardio/Vascular: Yes: AFIB (with PPM), CAD (s/p CABG), CHF, HTN, Hyperlipdemia, Other (PROSTHETIC HEART VALVES, s/p porcine AVR & MVR, PPM, 07/24 ablation [facility]) Pulmonary: Yes: COPD Gastrointestinal: Yes: Other (colon adenomas, including a 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, cecal AVMs) Heme/Onc: Yes: Cancer (uterine cancer s/p radical resection) Musculoskeletal: Yes: Osteoarthritis Endocrine: Yes: Hypothyroidism Additional Medical History: Glaucoma. Detached retina - Past Surgical History Past Surgical History: Yes: Arthrosocopy (bilateral knees), Breast Biopsy (left = benign), CABG (x2 w/MAZE and valves), Cholecystectomy (open), Hysterectomy ( radical laparoscopic TAHBSL with lymph node resection 2012), Permanent Pacemaker , Tonsillectomy, Valve Replacement (aortic and mitral, bioprosthetics) Additional Surgical History: TURBT for benign bladder tumor - Alcohol/Substance Use Hx Alcohol Use: Yes (wine socially, no abuse) History of Substance Use: reports: None - Smoking History Smoking history: Never smoked Have you smoked in the past 12 months: No - Social History Usual Living Arrangement: Alone ADL: Independent 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 Place of : [facility] History of Recent Travel: No Home Medications - Allergies Allergies/Adverse Reactions: Allergies Allergy/AdvReac Type Severity Reaction Status Date / Time No Known Allergies Allergy Verified 08/01/19 11:06 - Home Medications Home Medications: Ambulatory Orders Albuterol Sulfate [Proair Hfa -] 1 - 2 inh PO PRN PRN 05/28/12 Cholecalciferol (Vitamin D3) [Vitamin D] 1,000 unit PO DAILY 05/28/12 Digoxin [Lanoxin -] 0.125 mg PO DAILY 05/28/12 Furosemide [Lasix -] 40 mg PO DAILY 05/28/12 Levothyroxine [Synthroid -] 175 mcg PO DAILY 05/28/12 Multivits W-Fe,Other Min/Lut [Centrum Silver Ultra Women Tab] 1 each PO DAILY Atorvastatin Calcium [Lipitor] 10 mg PO HS 06/24/13 Ranitidine HCl [Zantac] 150 mg PO BID 06/24/13 Acetaminophen [Tylenol] 650 mg PO PRN PRN 08/19/15 Potassium Chloride [Klor-Con M20] 20 meq PO BID 08/19/15 Diltiazem Cd [Cardizem Cd -] 240 mg PO BID #60 cap.cd.24h 09/07/15 Spironolactone [Aldactone -] 25 mg PO DAILY #30 tablet 01/28/17 Carvedilol 6.25 mg PO BID 05/20/19 Umeclidinium [place] [Incruse Ellipta] 62.5 mcg IH DAILY 05/26/19 Beclomethasone Dipropionate [Qvar] 8.7 gm IH BID 06/03/19 Nitroglycerin Sublingual [Nitrostat -] 0.6 mg SL DAILY PRN 06/03/19 Family Medical History Family Hx Cancer: Brother ( of cancer of unknown origin) Other Family History: F 72 of COPF, ASHD, sarcoidosis. M 72 of ASHD, had CVA age 62. Brother with brain aneurysm. Sister of COPD Review of Systems Unable to obtain ROS, reason: confused Physical Exam-GI Vital Signs: Vital Signs Temperature 99.2 F 08/02/19 13:50 Pulse Rate 57 L 08/02/19 13:50 Respiratory Rate 20 08/02/19 13:50 Blood Pressure 98/59 L 08/02/19 13:50 O2 Sat by Pulse Oximetry (%) 94 L 08/02/19 10:00 CBC,CMP WBC 14.3 K/mm3 (4.0-10.0) H 08/02/19 06:08 RBC 4.71 M/mm3 (3.60-5.2) 08/02/19 06:08 Hgb 14.0 GM/dL (10.7-15.3) 08/02/19 06:08 Hct 42.3 % (32.4-45.2) 08/02/19 06:08 MCV 89.9 fl (80-96) 08/02/19 06:08 MCH 29.7 pg (25.7-33.7) 08/02/19 06:08 MCHC 33.1 g/dl (32.0-36.0) 08/02/19 06:08 RDW 16.0 % (11.6-15.6) H 08/02/19 06:08 Plt Count 141 K/MM3 (134-434) 08/02/19 06:08 MPV 9.2 fl (7.5-11.1) 08/02/19 06:08 Absolute Neuts (auto) 12.5 K/mm3 (1.5-8.0) H 08/01/19 11:38 Neutrophils % 87.4 % (42.8-82.8) H 08/01/19 11:38 Lymphocytes % 3.7 % (8-40) L D 08/01/19 11:38 Monocytes % 8.6 % (3.8-10.2) 08/01/19 11:38 Eosinophils % 0.0 % (0-4.5) D 08/01/19 11:38 Basophils % 0.3 % (0-2.0) 08/01/19 11:38 Nucleated RBC % 0 % (0-0) 08/01/19 11:38 Sodium 136 mmol/L (136-145) 08/02/19 06:08 Potassium 4.0 mmol/L (3.5-5.1) 08/02/19 06:08 Chloride 104 mmol/L (98-107) 08/02/19 06:08 Carbon Dioxide 24 mmol/L (21-32) 08/02/19 06:08 Anion Gap 9 MMOL/L (8-16) 08/02/19 06:08 BUN 27.9 mg/dL (7-18) H 08/02/19 06:08 Creatinine 0.8 mg/dL (0.55-1.3) 08/02/19 06:08 Est GFR (CKD-EPI)AfAm 81.27 08/02/19 06:08 Est GFR (CKD-EPI)NonAf 70.12 08/02/19 06:08 Random Glucose 92 mg/dL (74-106) 08/02/19 06:08 Lactic Acid 1.2 mmol/L (0.4-2.0) 08/01/19 11:58 Calcium 8.5 mg/dL (8.5-10.1) 08/02/19 06:08 Phosphorus 2.8 mg/dL (2.5-4.9) 08/01/19 11:38 Magnesium 2.0 mg/dL (1.8-2.4) 08/01/19 11:38 Total Bilirubin 0.8 mg/dL (0.2-1) 08/02/19 06:08 AST 67 U/L (15-37) H 08/02/19 06:08 ALT 72 U/L (13-61) H 08/02/19 06:08 Alkaline Phosphatase 148 U/L (45-117) H 08/02/19 06:08 Creatine Kinase 27 U/L (26-192) 08/01/19 11:38 Troponin I 0.28 ng/ml (0.00-0.05) H 08/01/19 17:30 Total Protein 6.6 g/dl (6.4-8.2) 08/02/19 06:08 Albumin 2.3 g/dl (3.4-5.0) L 08/02/19 06:08 Current Medications Generic Name Dose Route Start Last Admin Trade Name Freq PRN Reason Stop Dose Admin Acetaminophen 650 mg 08/02/19 10:15 08/02/19 15:11 Tylenol - PO 650 mg Q4H PRN Administration FEVER Albuterol Sulfate 1 puff 08/01/19 16:34 Ventolin Hfa Inhaler - IH Q4H PRN ASTHMA Albuterol Sulfate 2 puff 08/01/19 16:47 Ventolin Hfa Inhaler - IH Q4H PRN ASTHMA Carvedilol 6.25 mg 08/01/19 22:00 08/02/19 10:14 Coreg - PO 6.25 mg BID JO-ANN Administration Digoxin 0.125 mg 08/02/19 10:00 08/02/19 11:03 Lanoxin - PO Not Given DAILY JO-ANN Diltiazem HCl 240 mg 08/01/19 22:00 08/02/19 10:14 Cardizem Cd - PO 240 mg BID JO-ANN Administration Ceftriaxone Sodium 1 gm/ 50 mls @ 100 mls/hr 08/02/19 10:00 08/02/19 10:15 Dextrose IVPB 100 mls/hr DAILY JO-ANN Administration Protocol Piperacillin Sod/Tazobactam 50 mls @ 100 mls/hr 08/02/19 13:30 08/02/19 15:02 Sod 3.375 gm/ Dextrose IVPB 100 mls/hr Q8H-IV JO-ANN Administration Protocol Vancomycin HCl 1,250 mg/ 250 mls @ 166.667 mls/hr 08/02/19 15:40 Dextrose IVPB 08/02/19 17:09 ONCE ONE Protocol Sodium Chloride 1,000 mls @ 60 mls/hr 08/02/19 15:45 Normal Saline - IV 08/03/19 15:42 ASDIR JO-ANN Levothyroxine Sodium 150 mcg/ 175 mcg 08/02/19 07:00 08/02/19 10:13 Levothyroxine Sodium 25 mcg PO 175 mcg DAILY@0700 JO-ANN Administration Non-Formulary Medication 8.7 gm 08/02/19 10:00 Beclomethasone Dipropionate [Qvar] IH BID JO-ANN Potassium Chloride 20 meq 08/01/19 22:00 08/02/19 10:15 K-Dur - PO 20 meq BID JO-ANN Administration Ranitidine HCl 150 mg 08/01/19 22:00 08/02/19 10:14 Zantac - PO 150 mg BID JO-ANN Administration Spironolactone 25 mg 08/02/19 10:00 08/02/19 10:14 Aldactone - PO 25 mg DAILY JO-ANN Administration Tiotropium [place] 2 puff 08/02/19 10:00 Spiriva Respimat IH DAILY JO-ANN Warfarin Sodium 2 mg 08/01/19 18:00 08/01/19 18:28 Coumadin - PO 2 mg MoFr@1800 JO-ANN Administration Warfarin Sodium 4 mg 08/02/19 18:00 Coumadin - PO SuTuWeThSa@1800 JO-ANN Constitutional: Yes: Other (Mildly confused, forgetful) Eyes: Yes: Conjunctiva Clear HENT: Yes: Atraumatic, Other (no oral abscesses seen, dentition poor no nuchal rigidity) Neck: Yes: Supple Cardiovascular: Yes: Pulse Irregular, Murmur (2/6 FRANCISCO at LLSB), Other (healed median sternotomy incision and left PPM site are clean) Respiratory: Yes: CTA Bilaterally Gastrointestinal Inspection: Yes: Scars (helaed oblique RUQ and laparoscopic incisions) ...Auscultate: Yes: Hypoactive Bowel Sounds ...Palpate: Yes: Soft, Other (nontender) ...Percussion: Yes: Tympanitic ...Rectal Exam: Yes: Guaiac Negative (no rectal abscess or mass, brown guaiac neg stool) Edema: Yes Edema: LLE: 1+ (brawny), RLE: 1+ (brawny) Neurological: Yes: Confusion, Other (but conversent and answers simple commands) Labs: CBC, BMP 08/02/19 06:08 08/02/19 06:08 INR, PTT INR 1.89 (0.83-1.09) H 08/01/19 11:38 Laboratory Tests 06/03/19 08/01/19 08/02/19 06:19 11:38 06:08 Total Bilirubin 0.7 0.8 AST 18 52 H 67 H ALT 16 71 H 72 H Alkaline Phosphatase 84 143 H 148 H Imaging - Results Ultrasound: Report Reviewed ( Final Report US ABDOMEN US -LIMITED Show Printer-Friendly Version Patient Name: Burt Jon : ID: [id number] Study Date: 01-Aug-2019 16:12 [place]ari[place] Burgess Name: BURT JON DEPARTMENT OF RADIOLOGY Phys: Ann Brown RESIDENT : 1940 Age: 78 Sex: F [facility] Acct: [id number] Loc: [address] Date: 08/01/19 Status: [place] [address] Unit Number: [id number] EXAM#: TYPE/EXAM: RESULT: US/ABDOMEN US -LIMITED HISTORY PROVIDED: Right upper quadrant pain. Real time examination of the abdomen demonstrates the following: The gallbladder has been removed. There is no evidence of intra or extrahepatic biliary duct dilatation. The liver is enlarged measuring 18.8 cm in craniocaudad dimension. Is normal in texture with no discrete intrahepatic masses seen. The pancreas is normal in size and texture with no pancreatic masses identified. There is no evidence of hydronephrosis or acute abnormalities of the right kidney. There is no evidence of AAA. The IVC is patent. IMPRESSION: S/P cholecystectomy with no evidence of biliary ductal dilatation or acute pathology. Reported By: Ad Boateng MD 08/01/191649 Technologist: Edilia Webber Transcribed Date/Time: 08/01/191649 Studio Designer: Ad Boateng Printed Date/Time: By: Signed by: Ad Boateng Signed on: 16:51) Problem List - Problems (1) Altered mental status Code(s): R41.82 - ALTERED MENTAL STATUS, UNSPECIFIED Qualifiers: Altered mental status type: disorientation Qualified Code(s): R41.0 - Disorientation, unspecified (2) Sepsis Code(s): A41.9 - SEPSIS, UNSPECIFIED ORGANISM Qualifiers: Sepsis type: sepsis due to unspecified organism Sepsis acute organ dysfunction status: unspecified Qualified Code(s): A41.9 - Sepsis, unspecified organism (3) Abnormal liver function tests Code(s): R94.5 - ABNORMAL RESULTS OF LIVER FUNCTION STUDIES (4) History of adenomatous polyp of colon Code(s): Z86.010 - PERSONAL HISTORY OF COLONIC POLYPS (5) Diverticulosis Code(s): K57.90 - DVRTCLOS OF INTEST, PART UNSP, W/O PERF OR ABSCESS W/O BLEED (6) Uterine malignancy Code(s): C55 - MALIGNANT NEOPLASM OF UTERUS, PART UNSPECIFIED (7) Angiodysplasia of cecum Code(s): K55.20 - ANGIODYSPLASIA OF COLON WITHOUT HEMORRHAGE (8) Atrial fibrillation Code(s): I48.91 - UNSPECIFIED ATRIAL FIBRILLATION Qualifiers: Atrial fibrillation type: chronic Qualified Code(s): I48.2 - Chronic atrial fibrillation (9) CAD (coronary artery disease), autologous vein bypass graft Code(s): I25.810 - ATHEROSCLEROSIS OF CABG W/O ANGINA PECTORIS Qualifiers: Associated angina: without angina Qualified Code(s): I25.810 - Atherosclerosis of coronary artery bypass graft(s) without angina pectoris (10) COPD (chronic obstructive pulmonary disease) Code(s): J44.9 - CHRONIC OBSTRUCTIVE PULMONARY DISEASE, UNSPECIFIED Qualifiers: COPD type: unspecified COPD Qualified Code(s): J44.9 - Chronic obstructive pulmonary disease, unspecified (11) Diastolic CHF, chronic Code(s): I50.32 - CHRONIC DIASTOLIC (CONGESTIVE) HEART FAILURE (12) History of aortic valve replacement with bioprosthetic valve Code(s): Z95.4 - PRESENCE OF OTHER HEART-VALVE REPLACEMENT (13) History of mitral valve replacement with bioprosthetic valve Code(s): Z95.4 - PRESENCE OF OTHER HEART-VALVE REPLACEMENT (14) Hyperlipidemia Code(s): E78.5 - HYPERLIPIDEMIA, UNSPECIFIED Qualifiers: Hyperlipidemia type: unspecified Qualified Code(s): E78.5 - Hyperlipidemia , unspecified (15) Hypertension Code(s): I10 - ESSENTIAL (PRIMARY) HYPERTENSION Qualifiers: Hypertension type: essential hypertension Qualified Code(s): I10 - Essential (primary) hypertension (16) Hypothyroidism Code(s): E03.9 - HYPOTHYROIDISM, UNSPECIFIED Qualifiers: Hypothyroidism type: unspecified Qualified Code(s): E03.9 - Hypothyroidism , unspecified Assessment/Plan Assessment: - Altered mental state due to sepsis. Given her prosthetic valves SBE needs to be excluded. She could alternatively have urosepsis. Will follow LFTs to exclude a biliary source but this is unlikely, particularly given her negative imaging. This could be reactive to sepsis. Will need to exclude hypothyroid state as she may not have taken levothyroxine for several days. Plan: -- Echocardiogram -- TSH,T4 -- Await BC and UC identification- already growing something -- Antibiotics as per ID outside sales consultant -- If no source become evident I will order an abdominal CT scan to exclude an occult liver, diverticular or other abscess site.
[2019-08-02] MEDS: TIOTROPIUM BROMIDE 2.5 MCG (SPIRIVA) RESPIMAT INHALER IH SCH (17:24)
--- NOTE | 2019-08-02 17:36 | CON.CARD ---
Consult Consult Specialty:: Cardiology Referred by:: Dr. Thornton - History of Present Illness History of Present Illness: CHIEF COMPLAINT: 1. Confusion. 2. Fever. S: The patient is a 78-year-old female with history of coronary artery disease, status post CABG, history of bioprosthetic mitral and aortic valve replacement in 2014, maze procedure, status post permanent pacemaker for sick sinus syndrome , atrial fibrillation, hypertension, hypertensive cardiovascular disease, congestive heart failure, hypothyroidism. Patient is confused and is unable to recall why she is in the hospital she apparently had called her PCP but then she was not reachable. Apparently family members found her confused and brought her to the emergency room. Unable to obtain any symptoms from the patient but on reviewing the emergency room note patient apparently complained of urinary frequency. Currently is being treated for a UTI. Past History: As mentioned in the history of present illness. Surgical History: 1. Status post total abdominal hysterectomy. 2. History of bioprosthetic mitral and aortic valve replacement. 3. Status post double-vessel coronary artery bypass grafting. 4. Status post maze procedure. Social History: , no history of smoking, occasional social drinking. Family History: Mother apparently of a cerebrovascular accident and had coronary artery disease. Otherwise noncontributory. ALLERGIES: None reported. Active Medications Acetaminophen (Tylenol -) 650 mg PO Q4H PRN PRN Reason: FEVER Last Admin: 08/02/19 15:11 Dose: 650 mg Albuterol Sulfate (Ventolin Hfa Inhaler -) 1 puff IH Q4H PRN PRN Reason: ASTHMA Albuterol Sulfate (Ventolin Hfa Inhaler -) 2 puff IH Q4H PRN PRN Reason: ASTHMA Carvedilol (Coreg -) 6.25 mg PO BID [facility] Last Admin: 08/02/19 10:14 Dose: 6.25 mg Digoxin (Lanoxin -) 0.125 mg PO DAILY [facility] Last Admin: 08/02/19 11:03 Dose: Not Given Diltiazem HCl (Cardizem Cd -) 240 mg PO BID [facility] Last Admin: 08/02/19 10:14 Dose: 240 mg Ceftriaxone Sodium 1 gm/ (Dextrose) 50 mls @ 100 mls/hr IVPB DAILY [facility]; Protocol Last Admin: 08/02/19 10:15 Dose: 100 mls/hr Piperacillin Sod/Tazobactam (Sod 3.375 gm/ Dextrose) 50 mls @ 100 mls/hr IVPB Q8H-IV [facility]; Protocol Last Admin: 08/02/19 15:02 Dose: 100 mls/hr Sodium Chloride (Normal Saline -) 1,000 mls @ 60 mls/hr IV ASDIR JO-ANN Stop: 08/03/19 15:42 Last Admin: 08/02/19 17:26 Dose: 60 mls/hr Levothyroxine Sodium 150 mcg/ (Levothyroxine Sodium 25 mcg) 175 mcg PO DAILY@ 0700 [facility] Last Admin: 08/02/19 10:13 Dose: 175 mcg Non-Formulary Medication (Beclomethasone Dipropionate [Qvar]) 8.7 gm IH BID [facility] Pantoprazole Sodium (Protonix -) 40 mg PO DAILY [facility] Potassium Chloride (K-Dur -) 20 meq PO BID [facility] Last Admin: 08/02/19 10:15 Dose: 20 meq Spironolactone (Aldactone -) 25 mg PO DAILY [facility] Last Admin: 08/02/19 10:14 Dose: 25 mg Tiotropium [place] (Spiriva Respimat) 2 puff IH DAILY [facility] Last Admin: 08/02/19 17:24 Dose: 2 puff Warfarin Sodium (Coumadin -) 2 mg PO MoFr@1800 [facility] Last Admin: 08/01/19 18:28 Dose: 2 mg Warfarin Sodium (Coumadin -) 4 mg PO SuTuWeThSa@1800 [facility] Review of Systems: Constitutional: Unable to obtain any history. HEENT: History was not obtainable. Respiratory:History was not obtainable. Cardiovascular: History was not obtainable. Gastrointestinal: History was not obtainable. Genitourinary: History was not obtainable. Musculoskeletal: Unable to obtain any history. Endocrine: Unable to obtain any history. Neurological: Unable to obtain any history. Hematological/lymphatic: Unable to obtain any history. PHYSICAL EXAMINATION:General: A 78-year-old female was confused in time but, knows that she is at the hospital. Last Vital Signs Temp Pulse Resp BP Pulse Ox 99.2 F 57 L 20 98/59 L 94 L 08/02/19 13:50 08/02/19 13:50 08/02/19 13:50 08/02/19 13:50 08/02/19 10:00 Intake & Output 07/30/19 07/31/19 08/01/19 08/02/19 23:59 23:59 23:59 23:59 Intake Total 750 Balance 750 Weight 74.843 kg Neck: Supple, no jugular venous distention, carotids were 2+, upstrokes were normal, no bruits were heard and no thyromegaly was present. Heart: No heaves or thrills, S1 is variable, S2 was normal, ejection systolic murmur grade II/ was heard at the 2nd right intercostal space, decrescendo Grade II/ systolic murmur was heard at the apex, no diastolic murmur or gallops were heard. Lungs: Clear on auscultation. Abdomen: Soft, obese and nontender. No hepatosplenomegaly or palpable masses were felt. Extremities: No calf tenderness or dependent edema. Pulses were equal. ECG Dated: 08/01/19 ATRIAL FIBRILLATION WITH OCCASIONAL ventricular-paced complexes POSSIBLE ANTERIOR INFARCT , AGE UNDETERMINED ABNORMAL ECG WHEN COMPARED WITH ECG OF 02-JUN-2019 13:56, VENT. RATE HAS INCREASED BY 22 BPM Confirmed by CANDELARIO CASH MD ([id number]) on 08/01/2019 6:22:07 PM Chest x-ray Dated: 08/01/19 Single AP view of the chest has been submitted. There is a large heart, sternal sutures, prominent knob, normal mic and left pacemaker. An acute chest process is not seen. There is no sign of a pneumothorax, infiltrate or failure. There is a sharp and soft tissues are intact. There are degenerative changes. Since 3 05/26/2017, is a smaller heart and new pacemaker. Correlation recommended CT Head Dated: 08/01/19 IMPRESSION: Moderate atrophy and mild periventricular chronic microvascular ischemic disease changes. Left periventricular chronic lacunar infarct along superior margin of the left basal ganglia. No mass lesion, gross acute infarct or intracranial hemorrhage are identified. CT C-spine Dated: 08/01/19 The alignment is satisfactory. No gross fracture or subluxation is seen. No jumped facets are identified. Moderate degenerative disc disease at C6-C7 level. Uncovertebral hypertrophy moderately narrowing the left foramen at C5-C6 and C6-C7 level. Abdominal Ultrasound Dated: 08/01/19 S/P cholecystectomy with no evidence of biliary ductal dilatation or acute pathology. Laboratory Results - last 24 hr 08/01/19 08/01/1908/02/19 17:30 17:36 06:08 WBC 14.3 H RBC 4.71 Hgb 14.0 Hct 42.3 MCV 89.9 MCH 29.7 MCHC 33.1 RDW 16.0 H Plt Count 141 MPV 9.2 Sodium Potassium Chloride Carbon Dioxide Anion Gap BUN Creatinine Est GFR (CKD-EPI)AfAm Est GFR (CKD-EPI)NonAf Random Glucose Calcium Total Bilirubin AST ALT Alkaline Phosphatase Troponin I 0.28 H Total Protein Albumin Digoxin 0.65 L 08/02/19 06:08 WBC RBC Hgb Hct MCV MCH MCHC RDW Plt Count MPV Sodium 136 Potassium 4.0 Chloride 104 Carbon Dioxide 24 Anion Gap 9 BUN 27.9 H Creatinine 0.8 Est GFR (CKD-EPI)AfAm 81.27 Est GFR (CKD-EPI)NonAf 70.12 Random Glucose 92 Calcium 8.5 Total Bilirubin 0.8 AST 67 H ALT 72 H Alkaline Phosphatase 148 H Troponin I Total Protein 6.6 Albumin 2.3 L Digoxin IMPRESSION: 1. Clinical presentation and clinical findings compatible with urinary tract sepsis. 2. Mental confusion most likely related to toxic and/or metabolic encephalopathy. 3. Coronary artery disease, status post coronary artery bypass grafting. 4. Sick sinus syndrome. Status post permanent pacemaker. 5. Status post bioprosthetic mitral valve replacement. 6. Status post bioprosthetic aortic valve replacement. 7. History of congestive heart failure. 8. Hypertension, hypertensive cardiovascular disease. 9. History of left ventricular diastolic dysfunction. 10. Permanent atrial fibrillation. 11. Carotid artery disease. 12. History of bronchial asthma. 13. Hypercholesterolemia. 14. Status post maze procedure. 15. Hypothyroidism. RECOMMENDATIONS: 1. Concur with current line of cardiac therapy. 2 BNP. 3. Resume statins. 4. Lasix will need to be resumed. 5. Close monitoring of IV fluids in view of history of congestive heart failure. Prognosis: Critical. Thank you for your referral, KESHA CHIN M.D. 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 Detached retina - Past Surgical History Past Surgical History: Yes: Arthrosocopy (bilateral knees), Breast Biopsy (left = benign), CABG (x2 w/MAZE and valves), Cholecystectomy (open), Hysterectomy ( radical laparoscopic TAHBSL with lymph node resection 2012), Permanent Pacemaker , Tonsillectomy, Valve Replacement (aortic and mitral, bioprosthetics) Additional Surgical History: TURBT for benign bladder tumor - Alcohol/Substance Use Hx Alcohol Use: Yes (wine socially, no abuse) History of Substance Use: reports: None - Smoking History Smoking history: Never smoked Have you smoked in the past 12 months: No If you are a former smoker, when did you quit?: 50 years ago - Social History Usual Living Arrangement: Alone ADL: Independent 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 History of Recent Travel: No Home Medications - Allergies Allergies/Adverse Reactions: Allergies Allergy/AdvReac Type Severity Reaction Status Date / Time No Known Allergies Allergy Verified 08/01/19 11:06 - Home Medications Home Medications: Ambulatory Orders Albuterol Sulfate [Proair Hfa -] 1 - 2 inh PO PRN PRN 05/28/12 Cholecalciferol (Vitamin D3) [Vitamin D] 1,000 unit PO DAILY 05/28/12 Digoxin [Lanoxin -] 0.125 mg PO DAILY 05/28/12 Furosemide [Lasix -] 40 mg PO DAILY 05/28/12 Levothyroxine [Synthroid -] 175 mcg PO DAILY 05/28/12 Multivits W-Fe,Other Min/Lut [Centrum Silver Ultra Women Tab] 1 each PO DAILY Atorvastatin Calcium [Lipitor] 10 mg PO HS 06/24/13 Ranitidine HCl [Zantac] 150 mg PO BID 06/24/13 Acetaminophen [Tylenol] 650 mg PO PRN PRN 08/19/15 Potassium Chloride [Klor-Con M20] 20 meq PO BID 08/19/15 Diltiazem Cd [Cardizem Cd -] 240 mg PO BID #60 cap.cd.24h 09/07/15 Spironolactone [Aldactone -] 25 mg PO DAILY #30 tablet 01/28/17 Carvedilol 6.25 mg PO BID 05/20/19 Umeclidinium [place] [Incruse Ellipta] 62.5 mcg IH DAILY 05/26/19 Beclomethasone Dipropionate [Qvar] 8.7 gm IH BID 06/03/19 Nitroglycerin Sublingual [Nitrostat -] 0.6 mg SL DAILY PRN 06/03/19 Vital Signs: Vital Signs Temperature 99.2 F 08/02/19 13:50 Pulse Rate 57 L 08/02/19 13:50 Respiratory Rate 20 08/02/19 13:50 Blood Pressure 98/59 L 08/02/19 13:50 O2 Sat by Pulse Oximetry (%) 94 L 08/02/19 10:00 - Other Data Labs, Other Data: CBC, BMP 08/02/19 06:08 08/02/19 06:08 INR, PTT INR 1.89 (0.83-1.09) H 08/01/19 11:38 Troponin, BNP 08/01/19 17:30 Troponin I 0.28 H Troponin, BNP 08/01/19 17:30 Troponin I 0.28 H
[2019-08-02] MEDS: WARFARIN NA 2 MG TABLET (UD) PO SCH (17:52)
[2019-08-03] MEDS ORDERED: DEXTROSE 5%-WATER - 50 ML IVPB ONE ×4 (03:12→16:55)
[2019-08-03] MEDS ORDERED: PIPERACILLIN/TAZOBACTAM 3.375 GM VIAL IVPB ONE ×3 (03:12→16:55)
[2019-08-03] MEDS: PIPERACILLIN/TAZOB 3.375 GM 3.375 GM in DEXTROSE 5%-WATER - 50 ML IVPB SCH ×3 (03:39→18:08)
[2019-08-03] MEDS ORDERED: PT OWN MED DRAWER 7, Y5N ONE (05:23)
[2019-08-03] MEDS: LEVOTHYROXINE 150 MCG, LEVOTHYROXINE 25 MCG PO SCH (06:05)
[2019-08-03 07:10] LABS: BASO % 0.4 % (0-2.0); EOS % 0.1 % (0-4.5); HEMOGLOBIN 13.2 GM/dL (10.7-15.3); INR 2.69 (0.83-1.09); LYMPH % 1.8 % (8-40); MCH 29.6 pg (25.7-33.7); MEAN CELL VOLUME 89.8 fl (80-96); MEAN PLT VOLUME 9.4 fl (7.5-11.1); MONO % 4.3 % (3.8-10.2); NEUT % 93.4 % (42.8-82.8); PLATELET COUNT 144 K/MM3 (134-434); PROTHROMBIN TIME (PATIENT) 32.1 SEC (9.7-13.0); RBC 4.46 M/mm3 (3.60-5.2); RDW 15.8 % (11.6-15.6); WHITE BLOOD COUNT 14.3 K/mm3 (4.0-10.0)
[2019-08-03 07:41] LABS: ALBUMIN 2.2 g/dl (3.4-5.0); BILIRUBIN,TOTAL 0.7 mg/dL (0.2-1); BLOOD UREA NITROGEN 32.8 mg/dL (7-18); CALCIUM 8.2 mg/dL (8.5-10.1); CREATININE 1.1 mg/dL (0.55-1.3); MAGNESIUM 2.1 mg/dL (1.8-2.4); POTASSIUM 4.8 mmol/L (3.5-5.1); TOT PROT 6.4 g/dl (6.4-8.2)
[2019-08-03] MEDS ORDERED: cefTRIAXone SODIUM 1 GM VIAL ONE (08:14)
--- NOTE | 2019-08-03 09:15 | PN ---
Progress Note (short form) - Note Progress Note: HPI: Continues to have fevers throughout the night correlating with her tachycardia on telemetry monitoring. Pt's mentation improved compared to previous notes. HPI limited 2/2 to patients orientation, however denies any shortness of breath, chest and abdominal pain. PE: Vital Signs Period Temp Pulse Resp BP Sys/Agudelo Pulse Ox Last 24 Hr 97.5 F-101 F 50-132 20-20 126-153/61-77 94-96 CBC, BMP 08/02/19 06:08 08/02/19 06:08 Hepatic Panel Total Bilirubin 0.8 mg/dL (0.2-1) 08/02/19 06:08 AST 67 U/L (15-37) H 08/02/19 06:08 ALT 72 U/L (13-61) H 08/02/19 06:08 Alkaline Phosphatase 148 U/L (45-117) H 08/02/19 06:08 Albumin 2.3 g/dl (3.4-5.0) L 08/02/19 06:08 Gen: Nondiaphoretic, Awake, alert, oriented x2 HEENT: NC/AT, CHRISTY, EOMI, dry MM LUNGS: CTA throughout no accessory muscle use CARD: Irregularly irregular with 3/6 systolic murmur noted ABD: Soft Nt/ND, normoactive BS, no hepatomegaly noted EXT: 2+ DP pulses, no peripheral edema noted SKIN: No rashes or lesions. No sacral decubiti appreciated A/P Acute Metabolic Encephalopathy 2/2 to UTI and G+ Bacteremia HFpEF Subendocardial ischemia Transaminitis with elevated Alk phos COPD SSS s/p PPM placement Atrial fibrillation Hypothyroidism --Patient's fever curve downtrending with control --G+ bacteremia (cocci in clusters) noted on 2 blood cultures --Given Vancomycin 1250mg IV once yesterday; will discuss with ID about continuing dose --Vanco trough level after fourth dose --Echocardiogram to be performed today to r/o vegetations/septic emboli given G + bacteremia --Urine culture with lactose fermenting G- bacilli; melendez-sensitive --Continue Zosyn per ID --Continue Afib rate control and AC medications; elevated HR noted on telemetry during febrile episodes: --Coreg 6.25mg BID PO --Cardizem 240mg BID --Digoxin 0.125mg PO daily (most recent dig level low) --Monitor HR and if becoming bradycardic can discuss with Cardiology about changes in medications --Continue Warfarin scheduling doses (pt filled Rx in outpatient pharmacy recently) --INR today therapeutic at 2.69; monitor tomorrow's level --Continue Aldactone 24mg qdaily due to hx of HFpEF --Continue Synthroid 175mcg qdaily; TSH WNL --Demand ischemia 2/2 to sepsis picture --Transaminitis slightly increased, however just discontinued Lipitor and Tylenol and changed Rocephin to Zosyn given all these meds can elevate --Monitor LFTs and monitor TB. no symptoms at this time on EP --Appreciated all new home sales consultant recommendations FEN: Fluids - Mild hydration given pt's hypovolemic status Electrolyte abnormalities: Mild hyponatremia (hydration with NS) Nutrition: Sodium controlled PPX: DVT - Already on Warfarin GI - Ranitidine BID Dispo: Sepsis workup to continue; continue ABX Abram Levy DO - IM PGY-3
--- NOTE | 2019-08-03 09:24 | PN ---
Teaching Attending Note Name of Resident: Abram Levy ATTENDING PHYSICIAN STATEMENT I saw and evaluated the patient. I reviewed the resident's note and discussed the case with the resident. I agree with the resident's findings and plan as documented with exceptions below. SUBJECTIVE: Patient seen and examined. lethargic, oriented to self and place. Denies any complaints. OBJECTIVE: Vital Signs Period Temp Pulse Resp BP Sys/Agudelo Pulse Ox Last 24 Hr 97 F-99.2 F 50-58 18-21 98-133/49-62 94-96 Intake & Output 07/31/19 08/01/19 08/02/19 08/03/19 23:59 23:59 23:59 23:59 Intake Total 2100 700 Balance 2100 700 Weight 165 lb General: lying in bed, lethargic, no acute distress neck: soft, supple, no JVD Chest: decreased effort, unable to appreciate rales or wheezing Abdomen:soft, obese, NT throughout Extremities: no pedal edema Musculoskeletal: vague back pain when attempted to turn, no point tenderness noted, limited exam, no concerns noted Home Medications Medication Instructions Recorded Albuterol Sulfate [Proair Hfa -] 1 - 2 inh PO PRN PRN 05/28/12 Cholecalciferol (Vitamin D3) 1,000 unit PO DAILY 05/28/12 [Vitamin D] Digoxin [Lanoxin -] 0.125 mg PO DAILY 05/28/12 Furosemide [Lasix -] 40 mg PO DAILY 05/28/12 Levothyroxine [Synthroid -] 175 mcg PO DAILY 05/28/12 Multivits W-Fe,Other Min/Lut 1 each PO DAILY 05/28/12 [Centrum Silver Ultra Women Tab] Atorvastatin Calcium [Lipitor] 10 mg PO HS 06/24/13 Ranitidine HCl [Zantac] 150 mg PO BID 06/24/13 Acetaminophen [Tylenol] 650 mg PO PRN PRN 08/19/15 Potassium Chloride [Klor-Con M20] 20 meq PO BID 08/19/15 Diltiazem Cd [Cardizem Cd -] 240 mg PO BID #60 cap.cd.24h 09/07/15 Spironolactone [Aldactone -] 25 mg PO DAILY #30 tablet 01/28/17 Carvedilol 6.25 mg PO BID 05/20/19 Umeclidinium [place] [Incruse 62.5 mcg IH DAILY 05/26/19 Ellipta] Beclomethasone Dipropionate [Qvar] 8.7 gm IH BID 06/03/19 Nitroglycerin Sublingual 0.6 mg SL DAILY PRN 06/03/19 [Nitrostat -] Active Medications Acetaminophen (Tylenol -) 650 mg PO Q4H PRN PRN Reason: FEVER Last Admin: 08/02/19 21:20 Dose: 650 mg Albuterol Sulfate (Ventolin Hfa Inhaler -) 1 puff IH Q4H PRN PRN Reason: ASTHMA Albuterol Sulfate (Ventolin Hfa Inhaler -) 2 puff IH Q4H PRN PRN Reason: ASTHMA Carvedilol (Coreg -) 6.25 mg PO BID [facility] Last Admin: 08/03/19 10:41 Dose: 6.25 mg Digoxin (Lanoxin -) 0.125 mg PO DAILY [facility] Last Admin: 08/03/19 10:42 Dose: Not Given Diltiazem HCl (Cardizem Cd -) 240 mg PO BID [facility] Last Admin: 08/03/19 10:42 Dose: 240 mg Ceftriaxone Sodium 1 gm/ (Dextrose) 50 mls @ 100 mls/hr IVPB DAILY [facility]; Protocol Last Admin: 08/03/19 10:42 Dose: 100 mls/hr Piperacillin Sod/Tazobactam (Sod 3.375 gm/ Dextrose) 50 mls @ 100 mls/hr IVPB Q8H-IV [facility]; Protocol Last Admin: 08/03/19 10:42 Dose: 100 mls/hr Sodium Chloride (Normal Saline -) 1,000 mls @ 60 mls/hr IV ASDIR JO-ANN Stop: 08/03/19 15:42 Last Admin: 08/02/19 17:26 Dose: 60 mls/hr Vancomycin HCl (Vancomycin (Pre-Docked)) 1,000 mg in 250 mls @ 166.667 mls/hr IVPB Q12H [facility]; Protocol Levothyroxine Sodium 150 mcg/ (Levothyroxine Sodium 25 mcg) 175 mcg PO DAILY@ 0700 [facility] Last Admin: 08/03/19 06:05 Dose: 175 mcg Non-Formulary Medication (Beclomethasone Dipropionate [Qvar]) 8.7 gm IH BID [facility] Pantoprazole Sodium (Protonix -) 40 mg PO DAILY [facility] Last Admin: 08/03/19 10:42 Dose: 40 mg Potassium Chloride (K-Dur -) 20 meq PO BID [facility] Last Admin: 08/03/19 10:41 Dose: 20 meq Spironolactone (Aldactone -) 25 mg PO DAILY [facility] Last Admin: 08/03/19 10:41 Dose: 25 mg Tiotropium [place] (Spiriva Respimat) 2 puff IH DAILY [facility] Last Admin: 08/03/19 10:42 Dose: 2 puff Warfarin Sodium (Coumadin -) 2 mg PO MoFr@1800 [facility] Last Admin: 08/01/19 18:28 Dose: 2 mg Warfarin Sodium (Coumadin -) 4 mg PO SuTuWeThSa@1800 [facility] Last Admin: 08/02/19 17:52 Dose: 4 mg Laboratory Results - last 24 hr 08/02/19 08/03/19 08/03/19 06:08 05:35 05:35 WBC RBC Hgb Hct MCV MCH MCHC RDW Plt Count MPV Absolute Neuts (auto) Neutrophils % Lymphocytes % Monocytes % Eosinophils % Basophils % Nucleated RBC % PT with INR 32.10 H INR 2.69 H Sodium 136 134 L Potassium 4.0 4.8 Chloride 104 103 Carbon Dioxide 24 22 Anion Gap 9 9 BUN 27.9 H 32.8 H Creatinine 0.8 1.1 Est GFR (CKD-EPI)AfAm 81.27 55.30 Est GFR (CKD-EPI)NonAf 70.12 47.71 Random Glucose 92 108 H Calcium 8.5 8.2 L Magnesium 2.1 Total Bilirubin 0.8 0.7 GGT AST 67 H 84 H ALT 72 H 86 H Alkaline Phosphatase 148 H 139 H LD Total 312 H Creatine Kinase C-Reactive Protein 15.2 H Total Protein 6.6 6.4 Albumin 2.3 L 2.2 L TSH 1.19 08/03/19 08/03/19 05:35 05:35 WBC 14.3 H RBC 4.46 Hgb 13.2 Hct 40.0 MCV 89.8 MCH 29.6 MCHC 33.0 RDW 15.8 H Plt Count 144 MPV 9.4 Absolute Neuts (auto) 13.3 H Neutrophils % 93.4 H Lymphocytes % 1.8 L D Monocytes % 4.3 Eosinophils % 0.1 D Basophils % 0.4 Nucleated RBC % 0 PT with INR INR Sodium Potassium Chloride Carbon Dioxide Anion Gap BUN Creatinine Est GFR (CKD-EPI)AfAm Est GFR (CKD-EPI)NonAf Random Glucose Calcium Magnesium Total Bilirubin GGT 173 H AST ALT Alkaline Phosphatase LD Total Creatine Kinase 18 L C-Reactive Protein Total Protein Albumin TSH Microbiology 08/01/19 11:38 Urine - Urine Clean Catch Urine Culture - Final Escherichia Coli Diphtheroid/Corynebacterium 08/01/19 11:58 Blood - Peripheral Venous Blood Culture - Preliminary Pending Organism Pending Organism#2 08/01/19 11:58 Blood - Peripheral Venous Blood Culture - Preliminary Pending Organism Pending Organism#2 ASSESSMENT AND PLAN: 78 yof with PMHx of coronary artery disease, status post CABG, history of bioprosthetic mitral and aortic valve replacement in 2014, maze procedure, status post permanent pacemaker for sick sinus syndrome, atrial fibrillation, hypertension, hypertensive cardiovascular disease, HFpEF, hypothyroidism admitted with AMS, found with UTI/bacteremia. -Complicated E. Coli UTI -Coag neg staph bacteremia -Sepsis -AMS suspect toxic metabolic encephalopathy from above -Hypoxic respiratory insufficiency, suspect from poor mental status+/- sepsis -Elevated troponin, suspect demand mediated Type II NSTEMI from above -Abnormal LFTs, ?unlikely GB etiology, vs sepsis related -Chronic HFpEF -Afib s/p PPM -BIoprosthetic AVR/MVR -COPD -HLD Plan: Urine cx with E. Coli/diphtheroid. Blood cx with coag neg staph. ID input noted, zosyn/vanco (s/p 3 days of ceftriaxone) Repeat blood cx. 2D echo, CT chest/A/p to screen for infection/fluid collection. Low threshold for MRI spine if no clear etiology. GI input noted. Trend LFTs. gentle hydration, monitor volume status closely, lasix on hold. Trop trended down. Cardiology input noted. Continue coreg/digoxin/diltiazem/spironolactone as hemodynamics tolerate. Coumadin per INR dosing. Nebs prn, spiriva DVTPPX on coumadin Dispo pending clinical improvement. Discussed with nursing, all questions answered.
--- NOTE | 2019-08-03 09:57 | CON.NEURO ---
Consult - History of Present Illness History of Present Illness: 78 y/o female with a history of COPD, afib (off coumadin), HF, CAD, hypothyroidism, pacemaker, sick sinus syndrome, AV and MV replacement who presents for confusion. The patient typically calls her family members once a day. When the patients son had not heard from his mother in a few days they had the police do a wellness check. Patient was found to be confused and was brought to the hospital. Patient reports she has had UTI's in the past. Per patient family she is very active, lives alone, and takes all her medications. Patient urinates on her own in a toilet. Patient is also compliant with her doctor visits. Denies nausea vomiting, headache, dysuria or hematuria. Anticoagulation was stopped three months ago after a fall. This am , pt awake but slow to respond and confused. follows basic requests. Labs : UA +, CRP 15, Inc LFts, INC WBC CT HD IMPRESSION: Moderate atrophy and mild periventricular chronic microvascular ischemic disease changes. Left periventricular chronic lacunar infarct along superior margin of the left basal ganglia. No mass lesion, gross acute infarct or intracranial hemorrhage are identified. CT scan of the cervical spine . IMPRESSION: The alignment is satisfactory. No gross fracture or subluxation is seen. No jumped facets are identified. Moderate degenerative disc disease at C6- C7 level. Uncovertebral hypertrophy moderately narrowing the left foramen at C5- C6 and C6-C7 level. 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 Detached retina - Past Surgical History Past Surgical History: Yes: Arthrosocopy (bilateral knees), Breast Biopsy (left = benign), CABG (x2 w/MAZE and valves), Cholecystectomy (open), Hysterectomy ( radical laparoscopic TAHBSL with lymph node resection 2012), Permanent Pacemaker , Tonsillectomy, Valve Replacement (aortic and mitral, bioprosthetics) Additional Surgical History: TURBT for benign bladder tumor - Alcohol/Substance Use Hx Alcohol Use: Yes (wine socially, no abuse) History of Substance Use: reports: None - Smoking History Smoking history: Never smoked Have you smoked in the past 12 months: No If you are a former smoker, when did you quit?: 50 years ago - Social History Usual Living Arrangement: Alone ADL: Independent 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 History of Recent Travel: No Home Medications - Allergies Allergies/Adverse Reactions: Allergies Allergy/AdvReac Type Severity Reaction Status Date / Time No Known Allergies Allergy Verified 08/01/19 11:06 - Home Medications Home Medications: Ambulatory Orders Albuterol Sulfate [Proair Hfa -] 1 - 2 inh PO PRN PRN 05/28/12 Cholecalciferol (Vitamin D3) [Vitamin D] 1,000 unit PO DAILY 05/28/12 Digoxin [Lanoxin -] 0.125 mg PO DAILY 05/28/12 Furosemide [Lasix -] 40 mg PO DAILY 05/28/12 Levothyroxine [Synthroid -] 175 mcg PO DAILY 05/28/12 Multivits W-Fe,Other Min/Lut [Centrum Silver Ultra Women Tab] 1 each PO DAILY Atorvastatin Calcium [Lipitor] 10 mg PO HS 06/24/13 Ranitidine HCl [Zantac] 150 mg PO BID 06/24/13 Acetaminophen [Tylenol] 650 mg PO PRN PRN 08/19/15 Potassium Chloride [Klor-Con M20] 20 meq PO BID 08/19/15 Diltiazem Cd [Cardizem Cd -] 240 mg PO BID #60 cap.cd.24h 09/07/15 Spironolactone [Aldactone -] 25 mg PO DAILY #30 tablet 01/28/17 Carvedilol 6.25 mg PO BID 05/20/19 Umeclidinium [place] [Incruse Ellipta] 62.5 mcg IH DAILY 05/26/19 Beclomethasone Dipropionate [Qvar] 8.7 gm IH BID 06/03/19 Nitroglycerin Sublingual [Nitrostat -] 0.6 mg SL DAILY PRN 06/03/19 Physical Exam-Neuro Vital Signs: Vital Signs Temperature 98.4 F 08/03/19 05:58 Pulse Rate 52 L 08/03/19 05:58 Respiratory Rate 21 H 09/25/19 05:58 Blood Pressure 133/62 08/03/19 05:58 O2 Sat by Pulse Oximetry (%) 96 08/02/19 22:00 Labs: CBC, BMP 08/03/19 05:35 08/03/19 05:35 INR, PTT INR 2.69 (0.83-1.09) H 08/03/19 05:35 - Neuro Exam Level Of Consciousness: Yes: Alert (awake, attentive , slow to respond, does not recall yr /president, knows [facility], follows basic requests, no facila, no dysrthria , no drift, no fiocal weakness, PVD chnages distal LE ) Imaging - Results Cat Scan: Report Reviewed, Image Reviewed Problem List - Problems (1) Atrial fibrillation Code(s): I48.91 - UNSPECIFIED ATRIAL FIBRILLATION (2) Altered mental status Code(s): R41.82 - ALTERED MENTAL STATUS, UNSPECIFIED Qualifiers: Altered mental status type: disorientation Qualified Code(s): R41.0 - Disorientation, unspecified Assessment/Plan 78 y/o female with a history of COPD, afib (off coumadin), HF, CAD, hypothyroidism, pacemaker, sick sinus syndrome, AV and MV replacement who presents for confusion. The patient typically calls her family members once a day. When the patients son had not heard from his mother in a few days they had the police do a wellness check. Patient was found to be confused and was brought to the hospital. Patient reports she has had UTI's in the past. Per patient family she is very active, lives alone, and takes all her medications. Patient urinates on her own in a toilet. Patient is also compliant with her doctor visits. Denies nausea vomiting, headache, dysuria or hematuria. Anticoagulation was stopped three months ago after a fall. CT HD IMPRESSION: Moderate atrophy and mild periventricular chronic microvascular ischemic disease changes. Left periventricular chronic lacunar infarct along superior margin of the left basal ganglia. No mass lesion, gross acute infarct or intracranial hemorrhage are identified. CT scan of the cervical spine . IMPRESSION: The alignment is satisfactory. No gross fracture or subluxation is seen. No jumped facets are identified. Moderate degenerative disc disease at C6- C7 level. Uncovertebral hypertrophy moderately narrowing the left foramen at C5- C6 and C6-C7 level. AP : Encephalopathy delirium likely from UTI /bacteremia . electrolytes abnl nonfocal exam , CT HD -no acute pathology cont ABX agree with restarting AC , no clear evidence of a new [employer] ischemic event DR GASPAR
[2019-08-03] MEDS ORDERED: FUROSEMIDE 20 MG TABLET (FP) PO SCH (10:00)
--- NOTE | 2019-08-03 10:34 | PN ---
Progress Note (short form) - Note Progress Note: 78-year-old female with history of coronary artery disease, status post CABG, history of bioprosthetic mitral and aortic valve replacement in 2015, maze procedure, status post permanent pacemaker for sick sinus syndrome, atrial fibrillation, hypertension, hypertensive cardiovascular disease, congestive heart failure, hypothyroidism.admitted with confusion and fever and is currently being treated for urinary sepsis. Patient has agitation and confusion, she denies having shortness of breath or chest discomfort ALLERGIES: None reported. Active Medications Acetaminophen (Tylenol -) 650 mg PO Q4H PRN PRN Reason: FEVER Last Admin: 08/02/19 21:20 Dose: 650 mg Albuterol Sulfate (Ventolin Hfa Inhaler -) 1 puff IH Q4H PRN PRN Reason: ASTHMA Albuterol Sulfate (Ventolin Hfa Inhaler -) 2 puff IH Q4H PRN PRN Reason: ASTHMA Carvedilol (Coreg -) 6.25 mg PO BID [facility] Last Admin: 08/02/19 21:20 Dose: 6.25 mg Digoxin (Lanoxin -) 0.125 mg PO DAILY [facility] Last Admin: 08/02/19 11:03 Dose: Not Given Diltiazem HCl (Cardizem Cd -) 240 mg PO BID [facility] Last Admin: 08/02/19 21:20 Dose: 240 mg Ceftriaxone Sodium 1 gm/ (Dextrose) 50 mls @ 100 mls/hr IVPB DAILY [facility]; Protocol Last Admin: 08/02/19 10:15 Dose: 100 mls/hr Piperacillin Sod/Tazobactam (Sod 3.375 gm/ Dextrose) 50 mls @ 100 mls/hr IVPB Q8H-IV JO-ANN; Protocol Last Admin: 08/03/19 03:39 Dose: 100 mls/hr Sodium Chloride (Normal Saline -) 1,000 mls @ 60 mls/hr IV ASDIR [facility] Stop: 08/03/19 15:42 Last Admin: 08/02/19 17:26 Dose: 60 mls/hr Levothyroxine Sodium 150 mcg/ (Levothyroxine Sodium 25 mcg) 175 mcg PO DAILY@ 0700 [facility] Last Admin: 08/03/19 06:05 Dose: 175 mcg Non-Formulary Medication (Beclomethasone Dipropionate [Qvar]) 8.7 gm IH BID [facility] Pantoprazole Sodium (Protonix -) 40 mg PO DAILY [facility] Potassium Chloride (K-Dur -) 20 meq PO BID [facility] Last Admin: 08/02/19 21:20 Dose: 20 meq Spironolactone (Aldactone -) 25 mg PO DAILY [facility] Last Admin: 08/02/19 10:14 Dose: 25 mg Tiotropium [place] (Spiriva Respimat) 2 puff IH DAILY [facility] Last Admin: 08/02/19 17:24 Dose: 2 puff Warfarin Sodium (Coumadin -) 2 mg PO MoFr@1800 [facility] Last Admin: 08/01/19 18:28 Dose: 2 mg Warfarin Sodium (Coumadin -) 4 mg PO SuTuWeThSa@1800 [facility] Last Admin: 08/02/19 17:52 Dose: 4 mg PHYSICAL EXAMINATION:General: 78-year-old female who is confused in time and does not recall why she is in the hospital in no acute distress, no pallor, cyanosis, clubbing or jaundice. Last Vital Signs Temp Pulse Resp BP Pulse Ox 98.4 F 52 irregular. 21 H 133/62 96 08/03/19 05:58 08/03/19 05:58 08/03/19 05:58 08/03/19 05:58 08/02/19 22:00 Intake & Output 07/31/19 08/01/19 08/02/19 08/03/19 23:59 23:59 23:59 23:59 Intake Total 2100 700 Balance 2100 700 Weight 74.843 kg Neck: Supple, no jugular venous distention, carotids were 2+, upstrokes were normal, no bruits were heard and no thyromegaly was present. Heart: No heaves or thrills, S1 is variable, S2 was normal, ejection systolic murmur grade II/ was heard at the 2nd right intercostal space, decrescendo Grade II/ systolic murmur was heard at the apex, no diastolic murmur or gallops were heard. Lungs: Clear on auscultation. Abdomen: Soft, obese and nontender. No hepatosplenomegaly or palpable masses were felt. Extremities: No calf tenderness or dependent edema. Pulses were equal. Chest x-ray Dated: 08/01/19 Single AP view of the chest has been submitted. There is a large heart, sternal sutures, prominent knob, normal mic and left pacemaker. An acute chest process is not seen. There is no sign of a pneumothorax, infiltrate or failure. There is a sharp and soft tissues are intact. There are degenerative changes. Since 3 05/26/2017, is a smaller heart and new pacemaker. Correlation recommended CT Head Dated: 08/01/19 IMPRESSION: Moderate atrophy and mild periventricular chronic microvascular ischemic disease changes. Left periventricular chronic lacunar infarct along superior margin of the left basal ganglia. No mass lesion, gross acute infarct or intracranial hemorrhage are identified. CT C-spine Dated: 08/01/19 The alignment is satisfactory. No gross fracture or subluxation is seen. No jumped facets are identified. Moderate degenerative disc disease at C6-C7 level. Uncovertebral hypertrophy moderately narrowing the left foramen at C5-C6 and C6-C7 level. Abdominal Ultrasound Dated: 08/01/19 S/P cholecystectomy with no evidence of biliary ductal dilatation or acute pathology. CBC, BMP 08/03/19 05:35 08/03/19 05:35 IMPRESSION: 1. Mental confusion and agitation most likely related to toxic and/or metabolic encephalopathy. 2. Coronary artery disease, status post coronary artery bypass grafting. 3. Sepsis. 4. Sick sinus syndrome. Status post permanent pacemaker. 5. Status post bioprosthetic mitral valve replacement. 6. Status post bioprosthetic aortic valve replacement. 7. History of congestive heart failure. 8. Hypertension, hypertensive cardiovascular disease. 9. History of left ventricular diastolic dysfunction. 10. Permanent atrial fibrillation. 11. Carotid artery disease. 12. History of bronchial asthma. 13. Hypercholesterolemia. 14. Status post maze procedure. 15. Hypothyroidism. RECOMMENDATIONS: 1. Continue with current line of cardiac therapy. 2. BNP. 3. Close monitoring of fluid replacement in view of previous history of congestive heart failure. Prognosis: Critical. KESHA CHIN M.D.
[2019-08-03] MEDS: POTASSIUM CHLORIDE TABS 20 MEQ TABLET.ER (FP) PO SCH ×2 (10:41→22:27)
[2019-08-03] MEDS: SPIRONOLACTONE 25 MG TABLET (FP) PO SCH (10:41)
[2019-08-03] MEDS: CARVEDILOL 6.25 MG TABLET (FP) PO SCH ×2 (10:41→22:27)
[2019-08-03] MEDS: DIGOXIN 0.125 MG TABLET (FP) PO SCH (10:42)
[2019-08-03] MEDS: CEFTRIAXONE 1 GM in DEXTROSE 5%-WATER - 50 ML IVPB SCH (10:42)
[2019-08-03] MEDS: PANTOPRAZOLE 40 MG TABLET (FP) PO SCH (10:42)
[2019-08-03] MEDS: TIOTROPIUM BROMIDE 2.5 MCG (SPIRIVA) RESPIMAT INHALER IH SCH (10:42)
[2019-08-03] MEDS ORDERED: VANCOMYCIN 1 GM in D5W (PRE-DOCKED) 1,000 MG/250 ML IVPB ONE (11:35)
--- NOTE | 2019-08-03 13:09 | PN ---
Progress Note, Physician History of Present Illness: patient confused says she does not feel too well blood cx have turned positive now - Current Medication List Current Medications: Active Medications Acetaminophen (Tylenol -) 650 mg PO Q4H PRN PRN Reason: FEVER Last Admin: 08/02/19 21:20 Dose: 650 mg Albuterol Sulfate (Ventolin Hfa Inhaler -) 1 puff IH Q4H PRN PRN Reason: ASTHMA Albuterol Sulfate (Ventolin Hfa Inhaler -) 2 puff IH Q4H PRN PRN Reason: ASTHMA Carvedilol (Coreg -) 6.25 mg PO BID [facility] Last Admin: 08/03/19 10:41 Dose: 6.25 mg Digoxin (Lanoxin -) 0.125 mg PO DAILY [facility] Last Admin: 08/03/19 10:42 Dose: Not Given Diltiazem HCl (Cardizem Cd -) 240 mg PO BID [facility] Last Admin: 08/03/19 10:42 Dose: 240 mg Ceftriaxone Sodium 1 gm/ (Dextrose) 50 mls @ 100 mls/hr IVPB DAILY [facility]; Protocol Last Admin: 08/03/19 10:42 Dose: 100 mls/hr Piperacillin Sod/Tazobactam (Sod 3.375 gm/ Dextrose) 50 mls @ 100 mls/hr IVPB Q8H-IV [facility]; Protocol Last Admin: 08/03/19 10:42 Dose: 100 mls/hr Sodium Chloride (Normal Saline -) 1,000 mls @ 60 mls/hr IV ASDIR [facility] Stop: 08/03/19 15:42 Last Admin: 08/02/19 17:26 Dose: 60 mls/hr Levothyroxine Sodium 150 mcg/ (Levothyroxine Sodium 25 mcg) 175 mcg PO DAILY@ 0700 [facility] Last Admin: 08/03/19 06:05 Dose: 175 mcg Non-Formulary Medication (Beclomethasone Dipropionate [Qvar]) 8.7 gm IH BID [facility] Pantoprazole Sodium (Protonix -) 40 mg PO DAILY [facility] Last Admin: 08/03/19 10:42 Dose: 40 mg Potassium Chloride (K-Dur -) 20 meq PO BID [facility] Last Admin: 08/03/19 10:41 Dose: 20 meq Spironolactone (Aldactone -) 25 mg PO DAILY [facility] Last Admin: 08/03/19 10:41 Dose: 25 mg Tiotropium [place] (Spiriva Respimat) 2 puff IH DAILY [facility] Last Admin: 08/03/19 10:42 Dose: 2 puff Warfarin Sodium (Coumadin -) 2 mg PO MoFr@1800 [facility] Last Admin: 08/01/19 18:28 Dose: 2 mg Warfarin Sodium (Coumadin -) 4 mg PO SuTuWeThSa@1800 [facility] Last Admin: 08/02/19 17:52 Dose: 4 mg - Objective Vital Signs: Vital Signs Temperature 98.4 F 08/03/19 05:58 Pulse Rate 52 L 08/03/19 10:42 Respiratory Rate 21 H 08/03/19 05:58 Blood Pressure 133/62 08/03/19 05:58 O2 Sat by Pulse Oximetry (%) 96 08/02/19 22:00 Constitutional: Yes: Calm, Thin, Other Cardiovascular: Yes: Regular Rate and Rhythm Respiratory: Yes: Regular, CTA Bilaterally, On Nasal O2 Gastrointestinal: Yes: Normal Bowel Sounds, Soft Musculoskeletal: Yes: WNL Extremities: Yes: WNL Neurological: Yes: Alert, Other (confused) Labs: CBC, BMP 08/03/19 05:35 08/03/19 05:35 INR, PTT INR 2.69 (0.83-1.09) H 08/03/19 05:35 Assessment/Plan A/P Acute Metabolic Encephalopathy Transaminitis with elevated Alk phos COPD SSS s/p PPM placement Atrial fibrillation Hypothyroidism uti gm positive bacteremia plan conitnrafa chang await for repeat blood cx close watch nutrition rest as per the team
[2019-08-03 13:30] LABS: ANISOCYTOSIS 0; MACROCYTOSIS 0; OVALOCYTE 1+; PLATELET ESTIMATE DECREASED; TEAR DROP CELLS 1+
[2019-08-03] MEDS: WARFARIN NA 2 MG TABLET (UD) PO SCH (18:08)
[2019-08-03] MEDS: VANCOMYCIN 1 GRAM (PRE-DOCKED) 1,000 MG/250 ML BAG IVPB SCH (22:30)
[2019-08-03] MEDS: ACETAMINOPHEN 325 MG TABLET (FP) PO PRN (22:32)
[2019-08-04] MEDS ORDERED: DEXTROSE 5%-WATER - 50 ML IVPB ONE ×2 (02:36→12:38)
[2019-08-04] MEDS ORDERED: PIPERACILLIN/TAZOBACTAM 3.375 GM VIAL IVPB ONE ×2 (02:36→12:38)
[2019-08-04] MEDS: VANCOMYCIN 1 GRAM (PRE-DOCKED) 1,000 MG/250 ML BAG IVPB SCH ×3 (03:21→21:57)
[2019-08-04] MEDS: PIPERACILLIN/TAZOB 3.375 GM 3.375 GM in DEXTROSE 5%-WATER - 50 ML IVPB SCH ×3 (03:22→18:31)
[2019-08-04] MEDS ORDERED: PT OWN MED DRAWER 7, Y5N ONE (05:56)
[2019-08-04] MEDS: LEVOTHYROXINE 150 MCG, LEVOTHYROXINE 25 MCG PO SCH (06:17)
[2019-08-04 06:20] LABS: BASO % 0.9 % (0-2.0); EOS % 0.3 % (0-4.5); HEMATOCRIT 36.9 % (32.4-45.2); HEMOGLOBIN 12.2 GM/dL (10.7-15.3); LYMPH % 3.3 % (8-40); MCH 29.5 pg (25.7-33.7); MCHC 33.2 g/dl (32.0-36.0); MEAN CELL VOLUME 88.8 fl (80-96); MEAN PLT VOLUME 9.4 fl (7.5-11.1); MONO % 4.6 % (3.8-10.2); NEUT % 90.9 % (42.8-82.8); PLATELET COUNT 123 K/MM3 (134-434); RBC 4.16 M/mm3 (3.60-5.2); RDW 16.1 % (11.6-15.6); WHITE BLOOD COUNT 14.2 K/mm3 (4.0-10.0)
[2019-08-04 06:34] LABS: INR 3.62 (0.83-1.09); PROTHROMBIN TIME (PATIENT) 43.3 SEC (9.7-13.0)
[2019-08-04 06:54] LABS: ALBUMIN 1.8 g/dl (3.4-5.0); BILIRUBIN,TOTAL 0.6 mg/dL (0.2-1); BLOOD UREA NITROGEN 32.2 mg/dL (7-18); CALCIUM 7.8 mg/dL (8.5-10.1); POTASSIUM 4.7 mmol/L (3.5-5.1); TOT PROT 5.7 g/dl (6.4-8.2)
--- NOTE | 2019-08-04 10:19 | PN ---
Progress Note (short form) - Note Progress Note: 78-year-old female with history of coronary artery disease, status post CABG, history of bioprosthetic mitral and aortic valve replacement in 2015, maze procedure, status post permanent pacemaker for sick sinus syndrome, atrial fibrillation, hypertension, hypertensive cardiovascular disease, congestive heart failure, hypothyroidism.admitted with confusion and fever and is currently being treated for urinary sepsis. Patient has on going confusion, she denies having shortness of breath or chest discomfort, undergoing an echocardiogram. ALLERGIES: None reported. Active Medications Acetaminophen (Tylenol -) 650 mg PO Q4H PRN PRN Reason: FEVER Last Admin: 08/03/19 22:32 Dose: 650 mg Albuterol Sulfate (Ventolin Hfa Inhaler -) 1 puff IH Q4H PRN PRN Reason: ASTHMA Albuterol Sulfate (Ventolin Hfa Inhaler -) 2 puff IH Q4H PRN PRN Reason: ASTHMA Carvedilol (Coreg -) 6.25 mg PO BID [facility] Last Admin: 08/03/19 22:27 Dose: 6.25 mg Digoxin (Lanoxin -) 0.125 mg PO DAILY [facility] Last Admin: 08/03/19 10:42 Dose: Not Given Diltiazem HCl (Cardizem Cd -) 240 mg PO BID [facility] Last Admin: 08/03/19 22:27 Dose: 240 mg Piperacillin Sod/Tazobactam (Sod 3.375 gm/ Dextrose) 50 mls @ 100 mls/hr IVPB Q8H-IV [facility]; Protocol Last Admin: 08/04/19 03:22 Dose: 100 mls/hr Vancomycin HCl (Vancomycin (Pre-Docked)) 1,000 mg in 250 mls @ 166.667 mls/hr IVPB BID [facility]; Protocol Levothyroxine Sodium 150 mcg/ (Levothyroxine Sodium 25 mcg) 175 mcg PO DAILY@ 0700 [facility] Last Admin: 08/04/19 06:17 Dose: 175 mcg Mometasone Furoate (Asmanex 220mcg -) 1 puff IH BID [facility] Pantoprazole Sodium (Protonix -) 40 mg PO DAILY [facility] Last Admin: 08/03/19 10:42 Dose: 40 mg Potassium Chloride (K-Dur -) 20 meq PO BID [facility] Last Admin: 08/03/19 22:27 Dose: 20 meq Spironolactone (Aldactone -) 25 mg PO DAILY [facility] Last Admin: 08/03/19 10:41 Dose: 25 mg Tiotropium [place] (Spiriva Respimat) 2 puff IH DAILY [facility] Last Admin: 08/03/19 10:42 Dose: 2 puff Warfarin Sodium (Coumadin -) 2 mg PO MoFr@1800 [facility] Last Admin: 08/01/19 18:28 Dose: 2 mg Warfarin Sodium (Coumadin -) 4 mg PO SuTuWeThSa@1800 [facility] Last Admin: 08/03/19 18:08 Dose: 4 mg PHYSICAL EXAMINATION:General: 78-year-old female who is confused and lethargic. Last Vital Signs Temp Pulse Resp BP Pulse Ox 97.6 F 52 L 20 137/70 93 L 08/04/19 06:00 08/04/19 06:00 08/04/19 06:00 08/04/19 06:00 08/03/19 10:00 Intake & Output 08/01/19 08/02/19 08/03/19 08/04/19 23:59 23:59 23:59 23:59 Intake Total 2100 700 950 Balance 2100 700 950 Weight 74.843 kg Neck: Supple, no jugular venous distention, carotids were 2+, upstrokes were normal, no bruits were heard and no thyromegaly was present. Heart: No heaves or thrills, S1 is variable, S2 was normal, ejection systolic murmur grade II/ was heard at the 2nd right intercostal space, decrescendo Grade II/ systolic murmur was heard at the apex, no diastolic murmur or gallops were heard. Lungs: Clear on auscultation. Abdomen: Soft, obese and nontender. No hepatosplenomegaly or palpable masses were felt. Extremities: No calf tenderness or dependent edema. Pulses were equal. Chest x-ray Dated: 08/01/19 Single AP view of the chest has been submitted. There is a large heart, sternal sutures, prominent knob, normal mic and left pacemaker. An acute chest process is not seen. There is no sign of a pneumothorax, infiltrate or failure. There is a sharp and soft tissues are intact. There are degenerative changes. Since 3 05/26/2017, is a smaller heart and new pacemaker. Correlation recommended CT Head Dated: 08/01/19 IMPRESSION: Moderate atrophy and mild periventricular chronic microvascular ischemic disease changes. Left periventricular chronic lacunar infarct along superior margin of the left basal ganglia. No mass lesion, gross acute infarct or intracranial hemorrhage are identified. CBC, BMP 08/04/19 05:50 08/04/19 05:50 IMPRESSION: 1. Mental confusion and agitation most likely related to toxic and/or metabolic encephalopathy. 2. Coronary artery disease, status post coronary artery bypass grafting. 3. Sepsis. 4. Sick sinus syndrome. Status post permanent pacemaker. 5. Status post bioprosthetic mitral valve replacement. 6. Status post bioprosthetic aortic valve replacement. 7. History of congestive heart failure. 8. Hypertension, hypertensive cardiovascular disease. 9. History of left ventricular diastolic dysfunction. 10. Permanent atrial fibrillation. 11. Carotid artery disease. 12. History of bronchial asthma. 13. Hypercholesterolemia. 14. Status post maze procedure. 15. Hypothyroidism. RECOMMENDATIONS: 1. Continue with current line of cardiac therapy. 2. Echo in progress. 3. Close monitoring of fluid replacement in view of previous history of congestive heart failure. Prognosis: Critical. KESHA CHIN M.D.
[2019-08-04] MEDS: DIGOXIN 0.125 MG TABLET (FP) PO SCH (10:40)
[2019-08-04] MEDS: SPIRONOLACTONE 25 MG TABLET (FP) PO SCH (10:54)
--- NOTE | 2019-08-04 10:54 | PN ---
Progress Note (short form) - Note Progress Note: HPI: No events noted overnight. Pt without complaints today. HPI limited 2/2 to patients orientation, however denies any shortness of breath, chest and abdominal pain. PE: Vital Signs Period Temp Pulse Resp BP Sys/Agudelo Pulse Ox Last 24 Hr 97.4 F-99.6 F 52-78 20-20 114-137/57-70 CBC, BMP 08/04/19 05:50 08/04/19 05:50 Gen: Nondiaphoretic, Awake, alert, oriented x2 HEENT: NC/AT, CHRISTY, MMM LUNGS: CTA throughout no accessory muscle use CARD: Irregularly irregular with 3/6 systolic murmur noted ABD: Soft Nt/ND, normoactive BS, no hepatomegaly noted EXT: 2+ DP pulses, no peripheral edema noted BACK: Paraspinal pain near lumbar spine without skin changes or breakdown SKIN: No rashes or lesions. No sacral decubiti appreciated Active Medications Acetaminophen (Tylenol -) 650 mg PO Q4H PRN PRN Reason: FEVER Last Admin: 08/03/19 22:32 Dose: 650 mg Albuterol Sulfate (Ventolin Hfa Inhaler -) 1 puff IH Q4H PRN PRN Reason: ASTHMA Albuterol Sulfate (Ventolin Hfa Inhaler -) 2 puff IH Q4H PRN PRN Reason: ASTHMA Carvedilol (Coreg -) 6.25 mg PO BID [facility] Last Admin: 08/03/19 22:27 Dose: 6.25 mg Digoxin (Lanoxin -) 0.125 mg PO DAILY [facility] Last Admin: 08/03/19 10:42 Dose: Not Given Diltiazem HCl (Cardizem Cd -) 240 mg PO BID [facility] Last Admin: 08/03/19 22:27 Dose: 240 mg Piperacillin Sod/Tazobactam (Sod 3.375 gm/ Dextrose) 50 mls @ 100 mls/hr IVPB Q8H-IV [facility]; Protocol Last Admin: 08/04/19 03:22 Dose: 100 mls/hr Vancomycin HCl (Vancomycin (Pre-Docked)) 1,000 mg in 250 mls @ 166.667 mls/hr IVPB BID [facility]; Protocol Levothyroxine Sodium 150 mcg/ (Levothyroxine Sodium 25 mcg) 175 mcg PO DAILY@ 0700 [facility] Last Admin: 08/04/19 06:17 Dose: 175 mcg Mometasone Furoate (Asmanex 220mcg -) 1 puff IH BID [facility] Pantoprazole Sodium (Protonix -) 40 mg PO DAILY [facility] Last Admin: 08/03/19 10:42 Dose: 40 mg Potassium Chloride (K-Dur -) 20 meq PO BID [facility] Last Admin: 08/03/19 22:27 Dose: 20 meq Spironolactone (Aldactone -) 25 mg PO DAILY [facility] Last Admin: 08/03/19 10:41 Dose: 25 mg Tiotropium [place] (Spiriva Respimat) 2 puff IH DAILY [facility] Last Admin: 08/03/19 10:42 Dose: 2 puff Warfarin Sodium (Coumadin -) 2 mg PO [id number]@1800 [facility] Last Admin: 08/01/19 18:28 Dose: 2 mg Warfarin Sodium (Coumadin -) 4 mg PO SuTuWeThSa@1800 [facility] Last Admin: 08/03/19 18:08 Dose: 4 mg A/P Acute Metabolic Encephalopathy 2/2 to UTI and G+ Bacteremia 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 Hayes due to continued back pain even with transferring 2/2 to L1 anterolithesis and mod spinal canal stenosis seen on CT --Continue Afib rate control and AC medications; elevated HR noted on telemetry during febrile episodes: --Coreg 6.25mg BID PO --Cardizem 240mg BID --Digoxin 0.125mg PO daily (most recent dig level low) --Monitor HR and if becoming bradycardic can discuss with Cardiology about changes in medications --Hold Warfarin today --> INR 3.69 --Will likely change to Warfarin 2mg qdaily or alternating schedule between 2mg and 3mg --Monitor for signs of bleeding --Continue Aldactone 24mg qdaily due to hx of HFpEF --Continue Synthroid 175mcg qdaily; TSH WNL --Demand ischemia 2/2 to sepsis picture --Transaminitis plateaud today. Continue to monitor --holding Lipitor and Tylenol right now --Appreciated all business analysis consultant recommendations FEN: Fluids - PO encouragement Electrolyte abnormalities: Hyponatremia improving Nutrition: Sodium controlled PPX: DVT - Supratherapeutic INR GI - Ranitidine BID Dispo: Sepsis workup to continue; continue ABX Abram Levy DO - IM PGY-3
[2019-08-04] MEDS: MOMETASONE FUROATE 220 MCG/IH INHALER IH SCH ×2 (11:55→21:59)
--- NOTE | 2019-08-04 12:23 | PN ---
Progress Note (short form) - Note Progress Note: NEUROSURGERY CONSULT DICTATED Chart reviewed Pt examined CT revieed h/o COPD, afib back on AC, CHF, CAD, hypothyroidism, pacemaker for sick sinus syndrome, AV and MV replacement presents with confusion. Patient denies any new complaints except LBP. Patient reports she has had UTI's in the past. C/o recent increased LBP without sciatica. Denies nausea, vomiting, headache, dysuria or hematuria. Denies new leg weakness, numbness. No new bowel or bladder incontinence. On vanco and zosyn. PE: Tmax 99.6, now 97.6, VSS HEENT- NC/AT; Neck- supple; Cor- Irreg; Chest- decreased BS at bases; Abd- benign; Ext- no sign of DVT CN- intact; Motor- 4+ B UE/LE except B IP 4/5 pain limited; Sensation- intact LT ; DTR- hyporeflexic Back- tender B LS junction WBC 14.2, INR 3.62, Cr 1.0, BUN 32.2 Blood culture- MRSE Urine Culture- E Coli head CT- moderate atrophy, no acute bleed or stroke CT Chest-abd: (limited to spine)- extensive spondylosis; L4-5 grade I-II spondhyl;olisthesis, L5-S1 DDD/narrowing, central though R > L L1-2 posterior bridging osteophytes with thecal sac impingement, no lytic lesion or osteo noted Chronic lumbar spine pathology including L4-5 spondylolisthesis and L1-2 calcified disc/bridging osteophytes with resultant stenosis Pain likely brought out because of ongoing bacteremia First priority is treatment of bacteremia Trial of lidoderm patch for LBP Minimize narcotic or sedative medications given altered mental status ( apparently improvign) Would not recommend more aggressive neurosurgical tx given concurrent infection and multiple medical co-morbidities
--- NOTE | 2019-08-04 12:36 | PN ---
Teaching Attending Note Name of Resident: Abram Levy ATTENDING PHYSICIAN STATEMENT I saw and evaluated the patient. I reviewed the resident's note and discussed the case with the resident. I agree with the resident's findings and plan as documented with exceptions below. SUBJECTIVE: Patient seen and examined. More interactive today. Reports low back pain, no complaints otherwise. OBJECTIVE: Vital Signs Period Temp Pulse Resp BP Sys/Agudelo Pulse Ox Last 24 Hr 97.4 F-99.6 F 52-78 20-20 114-137/57-70 Intake & Output 08/01/19 08/02/19 08/03/19 08/04/19 23:59 23:59 23:59 23:59 Intake Total 2100 700 950 Balance 2100 700 950 Weight 165 lb General: sitting in bed, weak looking, mild use of accessory muscles of respiration neck: soft, supple, no JVD Chest: poor effort, decreased breath sounds at bases, unable to appreciate rales or wheezing Abdomen:soft, NT Extremities: no edema Musculoskeletal: unchanged exam Home Medications Medication Instructions Recorded Albuterol Sulfate [Proair Hfa -] 1 - 2 inh PO PRN PRN 05/28/12 Cholecalciferol (Vitamin D3) 1,000 unit PO DAILY 05/28/12 [Vitamin D] Digoxin [Lanoxin -] 0.125 mg PO DAILY 05/28/12 Furosemide [Lasix -] 40 mg PO DAILY 05/28/12 Levothyroxine [Synthroid -] 175 mcg PO DAILY 05/28/12 Multivits W-Fe,Other Min/Lut 1 each PO DAILY 05/28/12 [Centrum Silver Ultra Women Tab] Atorvastatin Calcium [Lipitor] 10 mg PO HS 06/24/13 Ranitidine HCl [Zantac] 150 mg PO BID 06/24/13 Acetaminophen [Tylenol] 650 mg PO PRN PRN 08/19/15 Potassium Chloride [Klor-Con M20] 20 meq PO BID 08/19/15 Diltiazem Cd [Cardizem Cd -] 240 mg PO BID #60 cap.cd.24h 09/07/15 Spironolactone [Aldactone -] 25 mg PO DAILY #30 tablet 01/28/17 Carvedilol 6.25 mg PO BID 05/20/19 Umeclidinium [place] [Incruse 62.5 mcg IH DAILY 05/26/19 Ellipta] Beclomethasone Dipropionate [Qvar] 8.7 gm IH BID 06/03/19 Nitroglycerin Sublingual 0.6 mg SL DAILY PRN 06/03/19 [Nitrostat -] Active Medications Acetaminophen (Tylenol -) 650 mg PO Q4H PRN PRN Reason: FEVER Last Admin: 08/03/19 22:32 Dose: 650 mg Albuterol Sulfate (Ventolin Hfa Inhaler -) 1 puff IH Q4H PRN PRN Reason: ASTHMA Albuterol Sulfate (Ventolin Hfa Inhaler -) 2 puff IH Q4H PRN PRN Reason: ASTHMA Carvedilol (Coreg -) 6.25 mg PO BID [facility] Last Admin: 08/03/19 22:27 Dose: 6.25 mg Digoxin (Lanoxin -) 0.125 mg PO DAILY [facility] Last Admin: 08/03/19 10:42 Dose: Not Given Diltiazem HCl (Cardizem Cd -) 240 mg PO BID [facility] Last Admin: 08/03/19 22:27 Dose: 240 mg Piperacillin Sod/Tazobactam (Sod 3.375 gm/ Dextrose) 50 mls @ 100 mls/hr IVPB Q8H-IV [facility]; Protocol Last Admin: 08/04/19 03:22 Dose: 100 mls/hr Vancomycin HCl (Vancomycin (Pre-Docked)) 1,000 mg in 250 mls @ 166.667 mls/hr IVPB BID [facility]; Protocol Levothyroxine Sodium 150 mcg/ (Levothyroxine Sodium 25 mcg) 175 mcg PO DAILY@ 0700 [facility] Last Admin: 08/04/19 06:17 Dose: 175 mcg Mometasone Furoate (Asmanex 220mcg -) 1 puff IH BID [facility] Pantoprazole Sodium (Protonix -) 40 mg PO DAILY [facility] Last Admin: 08/03/19 10:42 Dose: 40 mg Spironolactone (Aldactone -) 25 mg PO DAILY [facility] Last Admin: 08/03/19 10:41 Dose: 25 mg Tiotropium [place] (Spiriva Respimat) 2 puff IH DAILY [facility] Last Admin: 08/03/19 10:42 Dose: 2 puff Laboratory Results - last 24 hr 08/03/19 08/03/19 08/04/19 05:35 12:07 05:50 WBC 14.2 H RBC 4.16 Hgb 12.2 Hct 36.9 MCV 88.8 MCH 29.5 MCHC 33.2 RDW 16.1 H Plt Count 123 L MPV 9.4 Absolute Neuts (auto) 12.9 H Neutrophils % 90.9 H Neutrophils % (Manual) 90.8 H Band Neutrophils % 1.0 Lymphocytes % 3.3 L D Lymphocytes % (Manual) 3.1 L Monocytes % 4.6 Monocytes % (Manual) 5 Eosinophils % 0.3 D Eosinophils % (Manual) 0.0 Basophils % 0.9 Basophils % (Manual) 0.0 Myelocytes % (Man) 0 Promyelocytes % (Man) 0 Blast Cells % (Manual) 0 Nucleated RBC % 0 Metamyelocytes 0 Hypochromia 0 Platelet Estimate Decreased Polychromasia 0 Poikilocytosis 1+ Anisocytosis 0 Microcytosis 0 Macrocytosis 0 Tear Drop Cells 1+ Ovalocytes 1+ PT with INR INR Sodium Potassium Chloride Carbon Dioxide Anion Gap BUN Creatinine Est GFR (CKD-EPI)AfAm Est GFR (CKD-EPI)NonAf Random Glucose Calcium Total Bilirubin AST ALT Alkaline Phosphatase Total Protein Albumin Random Vancomycin 6.9 L 08/04/19 08/04/19 05:50 05:50 WBC RBC Hgb Hct MCV MCH MCHC RDW Plt Count MPV Absolute Neuts (auto) Neutrophils % Neutrophils % (Manual) Band Neutrophils % Lymphocytes % Lymphocytes % (Manual) Monocytes % Monocytes % (Manual) Eosinophils % Eosinophils % (Manual) Basophils % Basophils % (Manual) Myelocytes % (Man) Promyelocytes % (Man) Blast Cells % (Manual) Nucleated RBC % Metamyelocytes Hypochromia Platelet Estimate Polychromasia Poikilocytosis Anisocytosis Microcytosis Macrocytosis Tear Drop Cells Ovalocytes PT with INR 43.30 H INR 3.62 H Sodium 135 L Potassium 4.7 Chloride 105 Carbon Dioxide 22 Anion Gap 8 BUN 32.2 H Creatinine 1.0 Est GFR (CKD-EPI)AfAm 62.05 Est GFR (CKD-EPI)NonAf 53.54 Random Glucose 122 H Calcium 7.8 L Total Bilirubin 0.6 AST 75 H ALT 85 H Alkaline Phosphatase 122 H Total Protein 5.7 L Albumin 1.8 L Random Vancomycin Microbiology 08/01/19 11:58 Blood - Peripheral Venous Blood Culture - Final Staphylococcus Epidermidis 08/01/19 11:58 Blood - Peripheral Venous Blood Culture - Final Staphylococcus Epidermidis 08/01/19 11:38 Urine - Urine Clean Catch Urine Culture - Final Escherichia Coli Diphtheroid/Corynebacterium CT chest/A/P images and results reviewed ASSESSMENT AND PLAN: 78 yof with PMHx of coronary artery disease, status post CABG, history of bioprosthetic mitral and aortic valve replacement in 2014, maze procedure, status post permanent pacemaker for sick sinus syndrome, atrial fibrillation, hypertension, hypertensive cardiovascular disease, HFpEF, hypothyroidism admitted with AMS, found with UTI/bacteremia. -Complicated E. Coli UTI -Staph epidermidis bacteremia -Sepsis -AMS suspect toxic metabolic encephalopathy from above -Suspected bibasilar PNA with pleural effusions -Hypoxic respiratory insufficiency, suspect from above/poor mental status -Elevated troponin, suspect demand mediated Type II NSTEMI from above -Abnormal LFTs, ?unlikely GB etiology, vs sepsis related -Chronic HFpEF -Afib s/p PPM -BIoprosthetic AVR/MVR -COPD -HLD Plan: Blood cx noted, repeat blood cx sent. CT chest/A/P results noted pulmonary consult. Vague back pain, CT A/P with degenerative changes. Unable to get MRI given PPM Spine consult Dr. Hayes. Zosyn/vancomycin (s/p 3 days of ceftriaxone) Follow up 2D echo. GI input noted. LFTs improved. Off IVF. hold lasix. Trop trended down. Cardiology input noted. Continue coreg/digoxin/diltiazem/spironolactone as hemodynamics tolerate. Coumadin per INR dosing. Hold today. Nebs prn, spiriva DVTPPX on coumadin Dispo pending clinical improvement. Discussed with nursing, son at bedside in detail, all questions answered.
--- NOTE | 2019-08-04 12:53 | CON.PULM ---
Consult Consult Specialty:: PULMONARY Referred by:: Dr Perry Reason for Consultation:: pleural effusions - History of Present Illness Chief Complaint: altered mental status History of Present Illness: 78yo female with h/o CAD s/p CABG, h/o AVR/MVR, COPD, atrial fibrillation, LV diastolic dysfunction, hypothyroidism, SSS s/p PPM who was admitted for altered mental status. Found to have a UTI but with gram positive bacteremia. Noted to have bilateral effusions with atelectasis/consolidations on imaging. Pt unable to provide further reliable history at this time. She denies shortness of breath but is visibly tachypneic. 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 Detached retina - Past Surgical History Past Surgical History: Yes: Arthrosocopy (bilateral knees), Breast Biopsy (left = benign), CABG (x2 w/MAZE and valves), Cholecystectomy (open), Hysterectomy ( radical laparoscopic TAHBSL with lymph node resection 2012), Permanent Pacemaker , Tonsillectomy, Valve Replacement (aortic and mitral, bioprosthetics) Additional Surgical History: TURBT for benign bladder tumor - Alcohol/Substance Use Hx Alcohol Use: Yes (wine socially, no abuse) History of Substance Use: reports: None - Smoking History Smoking history: Never smoked Have you smoked in the past 12 months: No If you are a former smoker, when did you quit?: 50 years ago - Social History Usual Living Arrangement: Alone ADL: Independent 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 History of Recent Travel: No Home Medications - Allergies Allergies/Adverse Reactions: Allergies Allergy/AdvReac Type Severity Reaction Status Date / Time No Known Allergies Allergy Verified 08/01/19 11:06 - Home Medications Home Medications: Ambulatory Orders Albuterol Sulfate [Proair Hfa -] 1 - 2 inh PO PRN PRN 05/28/12 Cholecalciferol (Vitamin D3) [Vitamin D] 1,000 unit PO DAILY 05/28/12 Digoxin [Lanoxin -] 0.125 mg PO DAILY 05/28/12 Furosemide [Lasix -] 40 mg PO DAILY 05/28/12 Levothyroxine [Synthroid -] 175 mcg PO DAILY 05/28/12 Multivits W-Fe,Other Min/Lut [Centrum Silver Ultra Women Tab] 1 each PO DAILY Atorvastatin Calcium [Lipitor] 10 mg PO HS 06/24/13 Ranitidine HCl [Zantac] 150 mg PO BID 06/24/13 Acetaminophen [Tylenol] 650 mg PO PRN PRN 08/19/15 Potassium Chloride [Klor-Con M20] 20 meq PO BID 08/19/15 Diltiazem Cd [Cardizem Cd -] 240 mg PO BID #60 cap.cd.24h 09/07/15 Spironolactone [Aldactone -] 25 mg PO DAILY #30 tablet 01/28/17 Carvedilol 6.25 mg PO BID 05/20/19 Umeclidinium [place] [Incruse Ellipta] 62.5 mcg IH DAILY 05/26/19 Beclomethasone Dipropionate [Qvar] 8.7 gm IH BID 06/03/19 Nitroglycerin Sublingual [Nitrostat -] 0.6 mg SL DAILY PRN 06/03/19 Review of Systems Unable to obtain ROS, reason: pt confused Physical Exam Vital Sings: Vital Signs Temperature 97.6 F 08/04/19 06:00 Pulse Rate 52 L 08/04/19 06:00 Respiratory Rate 20 08/04/19 06:00 Blood Pressure 137/70 08/04/19 06:00 O2 Sat by Pulse Oximetry (%) 93 L 08/03/19 10:00 Constitutional: Yes: Mild Distress Eyes: Yes: Conjunctiva Clear, EOM Intact HENT: Yes: Atraumatic, Normocephalic Neck: Yes: Supple, Trachea Midline Cardiovascular: Yes: Pulse Irregular Respiratory: Yes: Diminished (decreased breath sounds at the bases) ...Clubbing: No Gastrointestinal: Yes: Normal Bowel Sounds, Soft Edema: Yes (dependent) Neurological: Yes: Confusion Labs: CBC, BMP 08/04/19 05:50 08/04/19 05:50 Imaging - Results Chest X-ray: Report Reviewed, Image Reviewed Cat Scan: Report Reviewed, Image Reviewed (bilateral effusions with atelectasis vs consolidations) Problem List - Problems (1) Acute on chronic diastolic (congestive) heart failure Code(s): I50.33 - ACUTE ON CHRONIC DIASTOLIC (CONGESTIVE) HEART FAILURE Assessment/Plan Acute on Chronic Diastolic Heart Failure UTI Gram Positive Bacteremia r/o Pneumonia Pleural Effusions Sepsis +Troponins likely Demand Ischemia Elevated LFTs CAD s/p CABG Atrial Fibrillation h/o AVR/MVR SSS s/p PPM COPD Hypothyroidism - continue antibiotics per ID - f/u pending cultures - pleural effusions are likely from CHF but cannot rule out pneumonia given bacteremia - IV lasix - monitor urine output, creatinine - rate control - aspiration precautions - O2 to keep SpO2 >90% - DVT prophylaxis Thank you for this consult Jae Truong MD
[2019-08-04] MEDS ORDERED: FUROSEMIDE 40 MG/4 ML INJECTABLE VIAL IVPUSH ONE (12:54)
[2019-08-04] MEDS: CARVEDILOL 6.25 MG TABLET (FP) PO SCH ×2 (12:55→21:57)
[2019-08-04] MEDS: PANTOPRAZOLE 40 MG TABLET (FP) PO SCH (12:55)
[2019-08-04] MEDS: TIOTROPIUM BROMIDE 2.5 MCG (SPIRIVA) RESPIMAT INHALER IH SCH (12:57)
--- NOTE | 2019-08-04 14:08 | CONS ---
DATE OF CONSULTATION: DATE OF DICTATION: 08/04/2019 REQUESTING PHYSICIAN: Cuauhtemoc Perry MD CONSOLE OPERATOR: Anthony Conn MD, Neurosurgery CHIEF COMPLAINT: Lower back pain. HISTORY OF PRESENT ILLNESS: Patient is a 78-year-old, right-handed female with multiple past medical issues including atrial fibrillation, COPD, congestive heart failure, coronary artery disease, pacemaker placement for sick sinus syndrome, aortic and mitral valve replacement, who presented with confusion per the family. She presently has no other new complaints in terms of chest pain or shortness of breath. The patient has had multiple UTIs in the past. She was at home and did not call her family, and the police was called to check on her. She was found to be confused and sent to the hospital for evaluation and treatment. She was found to be bacteremic and started on IV antibiotic. Presently, she has no fever or chills. She complains of lower back pain which is nonradiating in nature. She denied any leg weakness, numbness, or tingling. She has no new bowel or bladder dysfunction and incontinence by report. She has no headache or nausea/vomiting. PAST MEDICAL HISTORY: Significant for atrial fibrillation, COPD, congestive heart failure, coronary artery disease, pacemaker for sick sinus syndrome, hypothyroidism, cardiac valve replacement. CURRENT MEDICATIONS: Include Spiriva, Ventolin, Coreg, Cardizem, Lanoxin, Lasix, Aldactone, Protonix, levothyroxine, vancomycin, Zosyn, Asmanex, Tylenol. ALLERGIES: There is no known drug allergy. FAMILY HISTORY: Noncontributory. SOCIAL HISTORY: She does not smoke. She is retired. She lives at home. REVIEW OF SYSTEMS: Otherwise negative for major constitutional, head and neck, cardiovascular, pulmonary, gastrointestinal, genitourinary, endocrinological, neurological, and psychological problems except for the above. PHYSICAL EXAMINATION: Vital Signs: T-max 99.6. Most current temperature is 97.6. Pulse rate is 58. Blood pressure is 137/70. She is on 2 L nasal cannula with O2 saturation 93%. HEENT: Examination shows her to be normocephalic, atraumatic, anicteric. Neck: Supple with no carotid bruit. Coronary: Examination demonstrated irregular rhythm. Lungs: Clear bilaterally, but she has decreased breath sounds at the bases. Abdomen: Benign. Extremities: Examination showed no obvious signs of DVT. Neurologic: Patient is awake and alert and oriented x2. Cranial nerve examination is intact 2-12. Motor examination shows 4+/5 strength in the upper and lower extremities with the exception of proximal bilateral lower extremities which is 4/5, limited by lower back pain. Sensory examination is intact to light touch. Deep tendon reflexes are hyporeflexic throughout. There are no pathological long tract sign. Lower Back: Examination shows tenderness in the lumbosacral junction bilaterally. LABORATORY: Examination shows a white blood cell count of 14.2, hemoglobin is 12.2, and platelet count is 123,000. INR is 2.62. Serum sodium is 135, and potassium is 4.7. BUN is 32 and creatinine 1. Urinalysis shows 2+ leukocyte esterase with 85 WBCs and 12 RBCs. Urine culture showed E. coli sensitive to ampicillin and skin randa. Blood culture shows MRSE. CT scan of the chest and the abdomen reviewed, with focus on the spine. There is extensive spondylosis and degenerative disk disease. There is a grade 1-2 L4-5 spondylolisthesis with lateral recess and foraminal narrowing. There is a calcified posterior L1-2 disk with associated bridging osteophyte with thecal sac impingement, right greater than left. There is no obvious lytic lesion or any obvious infection. All these findings appear chronic. IMPRESSION: 1. Chronic L1-2 calcified disk protrusion with bridging osteophyte and L4-5 spondylolisthesis with lateral recess and foraminal stenosis. 2. Sick sinus syndrome, status post pacemaker. 3. History of aortic valve and mitral valve replacement and coronary artery disease. 4. Chronic obstructive pulmonary disease. 5. Hypothyroidism. 6. Methicillin-resistant Staphylococcus epidermidis bacteremia. 7. Escherichia coli urinary tract infection. RECOMMENDATIONS: Patient presents with increased confusion, likely secondary to her bacteremia. I reviewed her CT scan of the chest and abdomen, which demonstrated degenerative changes in the lumbar spine. L4-5 spondylolisthesis with lateral recess and foraminal stenosis as well as some [id number] stenosis at L1-2 secondary to a prior calcified disk herniation with associated osteophyte were seen. These could contribute to her lower back pain. However, the patient has no history of lower back pain prior to this admission by report. Her back pain could be exacerbated because of her ongoing bacteremia. Therefore, the goal of treatment is to treat her bacteremia and hope that her back pain will subside as a result. All the CT scan findings are chronic and are unlikely to cause new problems. Unfortunately, an MRI cannot be obtained because of her pacemaker. On the other hand, there are no endplate lytic changes or osteomyelitis on the CT scan. The patient did have a head CT scan done, which demonstrated cerebral atrophy, but no acute stroke or ischemia. Cervical spine CT scan also demonstrated only degenerative disk disease and spondylosis at C5-6 and C6-7. No neurosurgical intervention is indicated or recommended at this time. The above was discussed with the patient at bedside. All questions were answered. ANTHONY CONN M.D. [id number]
--- NOTE | 2019-08-04 14:52 | ECHO ---
Name: JAILENE STARBURT Exam:Adult Echocardiogram Study Date: 08/04/2019 09:58 AM Age: 78 yrs Reason For Study: R/O VALVULAR REGURGITATIONS Height: 64 in Weight: 107 lb BSA: 1.5 m2 MMode/2D Measurements & Calculations IVSd: 1.1 cm Ao root diam: 2.4 cm LVIDd: 4.4 cm LA dimension: 5.4 cm LVIDs: 3.2 cm LVPWd: 0.97 cm EDV(Teich): 86.9 ml LVOT diam: 1.8 cm ESV(Teich): 41.3 ml Doppler Measurements & Calculations Ao V2 max: 261.0 cm/sec MVA(VTI): 1.0 cm2 Ao max P.8 mmHg MV V2 max: 269.0 cm/sec Ao V2 mean: 164.0 cm/sec MV max P.9 mmHg Ao mean P.3 mmHg MV V2 mean: 126.0 cm/sec Ao V2 VTI: 43.9 cm MV mean P.0 mmHg MV V2 VTI: 77.8 cm RIVERA(I,D): 1.9 cm2 RIVERA(V,D): 1.6 cm2 LV V1 max P.7 mmHg SV(LVOT): 82.0 ml LV V1 mean P.0 mmHg LV V1 max: 163.5 cm/sec LV V1 mean: 111.0 cm/sec LV V1 VTI: 31.4 cm TR max ai: 265.0 cm/sec PA V2 max: 144.0 cm/sec TR max P.4 mmHg PA max P.3 mmHg PI end-d ai: 95.0 cm/sec Procedure A complete two-dimensional transthoracic echocardiogram was performed (2D, M-mode, Doppler and color flow Doppler). Left Ventricle The left ventricular size, thickness and function are normal. The left ventricular ejection fraction is normal. Ejection Fraction = 60-65%. The left ventricular wall motion is normal. Right Ventricle The right ventricle is normal in size and function. There is a pacemaker lead in the right ventricle. Atria Normal left and right atrial size and function. There is a catheter/pacemaker lead seen in the right atrium. Mitral Valve There is a bioprosthetic mitral valve. There is no mitral regurgitation noted. Tricuspid Valve There is moderate tricuspid regurgitation. Right ventricular systolic pressure is elevated at 30-40mm Hg. Aortic Valve There is a bioprosthetic aortic valve. No hemodynamically significant valvular aortic stenosis. No ao rtic regurgitation is present. Pulmonic Valve Trace pulmonic valvular regurgitation. Great Vessels The aortic root is normal size. Pericardium/Pleura There is no pericardial effusion. Interpretation Summary The left ventricular size, thickness and function are normal The right ventricle is normal in size and function. There is a pacemaker lead in the right ventricle. There is a pacemaker lead seen in the right atrium. There is a bioprosthetic mitral valve. There is moderate tricuspid regurgitation. Right ventricular systolic pressure is elevated at 30-40mmHg. There is a bioprosthetic aortic valve. Trace pulmonic valvular regurgitation. MD Yahir Priest 08/04/2019 02:52 PM
[2019-08-04] MEDS: LIDOCAINE 5% TOPICAL PATCH TP SCH (16:11)
[2019-08-04] MEDS: FUROSEMIDE 40 MG/4 ML INJECTABLE VIAL IVPUSH SCH (16:11)
[2019-08-04] MEDS ORDERED: ACETAMINOPHEN 1000 MG/100 ML VIAL (NON FORMULARY) IVPB ONE (17:58)
--- NOTE | 2019-08-04 18:49 | PN ---
Progress Note, Physician History of Present Illness: Pt seen and examined, events noted, imaging/labs results reviewed. She is afebrile, alert and responsive with mild tachypnea, no cough noted. Evaluated by neurosurgery. Pt denies current low back pain. - Current Medication List Current Medications: Active Medications Acetaminophen (Tylenol -) 650 mg PO Q6H PRN PRN Reason: Fever Or Pain Albuterol Sulfate (Ventolin Hfa Inhaler -) 1 puff IH Q4H PRN PRN Reason: ASTHMA Albuterol Sulfate (Ventolin Hfa Inhaler -) 2 puff IH Q4H PRN PRN Reason: ASTHMA Carvedilol (Coreg -) 6.25 mg PO BID [facility] Last Admin: 08/04/19 12:55 Dose: 6.25 mg Digoxin (Lanoxin -) 0.125 mg PO DAILY [facility] Last Admin: 08/04/19 10:40 Dose: 0.125 mg Diltiazem HCl (Cardizem Cd -) 240 mg PO BID [facility] Last Admin: 08/04/19 10:55 Dose: 240 mg Furosemide (Lasix Injection -) 40 mg IVPUSH DAILY [facility] Last Admin: 08/04/19 16:11 Dose: 40 mg Piperacillin Sod/Tazobactam (Sod 3.375 gm/ Dextrose) 50 mls @ 100 mls/hr IVPB Q8H-IV [facility]; Protocol Last Admin: 08/04/19 10:57 Dose: 100 mls/hr Vancomycin HCl (Vancomycin (Pre-Docked)) 1,000 mg in 250 mls @ 166.667 mls/hr IVPB BID [facility]; Protocol Last Admin: 08/04/19 10:30 Dose: 166.667 mls/hr Levothyroxine Sodium 150 mcg/ (Levothyroxine Sodium 25 mcg) 175 mcg PO DAILY@ 0700 [facility] Last Admin: 08/04/19 06:17 Dose: 175 mcg Lidocaine (Lidoderm Patch -) 1 patch TP DAILY [facility] Last Admin: 08/04/19 16:11 Dose: Not Given Miscellaneous (Lidoderm Patch Removal) 1 each MC DAILY@2200 [facility] Mometasone Furoate (Asmanex 220mcg -) 1 puff IH BID [facility] Last Admin: 08/04/19 11:55 Dose: 1 puff Pantoprazole Sodium (Protonix -) 40 mg PO DAILY [facility] Last Admin: 08/04/19 12:55 Dose: 40 mg Spironolactone (Aldactone -) 25 mg PO DAILY [facility] Last Admin: 08/04/19 10:54 Dose: 25 mg Tiotropium [place] (Spiriva Respimat) 2 puff IH DAILY [facility] Last Admin: 08/04/19 12:57 Dose: 2 puff - Objective Vital Signs: Vital Signs Temperature 98.0 F 08/04/19 10:00 Pulse Rate 58 L 08/04/19 10:40 Respiratory Rate 21 H 08/04/19 10:00 Blood Pressure 124/65 08/04/19 10:00 O2 Sat by Pulse Oximetry (%) 93 L 08/03/19 10:00 Constitutional: Yes: Other (mild accessory muscle use) Eyes: Yes: Conjunctiva Clear HENT: Yes: Atraumatic Neck: Yes: Supple Cardiovascular: Yes: Pulse Irregular Respiratory: Yes: Diminished Gastrointestinal: Yes: Normal Bowel Sounds, Soft Genitourinary: Yes: WNL Extremities: Yes: WNL Edema: No Integumentary: Yes: WNL Neurological: Yes: Alert Labs: CBC, BMP 08/04/19 05:50 08/04/19 05:50 INR, PTT INR 3.62 (0.83-1.09) H 08/04/19 05:50 Laboratory Results - last 24 hr 08/04/19 08/04/19 08/04/19 05:50 05:50 05:50 WBC 14.2 H RBC 4.16 Hgb 12.2 Hct 36.9 MCV 88.8 MCH 29.5 MCHC 33.2 RDW 16.1 H Plt Count 123 L MPV 9.4 Absolute Neuts (auto) 12.9 H Neutrophils % 90.9 H Lymphocytes % 3.3 L D Monocytes % 4.6 Eosinophils % 0.3 D Basophils % 0.9 Nucleated RBC % 0 PT with INR 43.30 H INR 3.62 H Sodium 135 L Potassium 4.7 Chloride 105 Carbon Dioxide 22 Anion Gap 8 BUN 32.2 H Creatinine 1.0 Est GFR (CKD-EPI)AfAm 62.05 Est GFR (CKD-EPI)NonAf 53.54 Random Glucose 122 H Calcium 7.8 L Total Bilirubin 0.6 AST 75 H ALT 85 H Alkaline Phosphatase 122 H Total Protein 5.7 L Albumin 1.8 L Microbiology 08/03/19 12:07 Blood - Peripheral Venous Blood Culture - Preliminary NO GROWTH OBTAINED AFTER 24 HOURS, INCUBATION TO CONTINUE FOR 4 DAYS. 08/03/19 12:15 Blood - Peripheral Venous Blood Culture - Preliminary NO GROWTH OBTAINED AFTER 24 HOURS, INCUBATION TO CONTINUE FOR 4 DAYS. 08/01/19 11:58 Blood - Peripheral Venous Blood Culture - Final Staphylococcus Epidermidis 08/01/19 11:58 Blood - Peripheral Venous Blood Culture - Final Staphylococcus Epidermidis 08/01/19 11:38 Urine - Urine Clean Catch Urine Culture - Final Escherichia Coli Diphtheroid/Corynebacterium Problem List - Problems (1) Abnormal liver function tests Code(s): R94.5 - ABNORMAL RESULTS OF LIVER FUNCTION STUDIES (2) Acute on chronic diastolic (congestive) heart failure Code(s): I50.33 - ACUTE ON CHRONIC DIASTOLIC (CONGESTIVE) HEART FAILURE (3) Altered mental status Code(s): R41.82 - ALTERED MENTAL STATUS, UNSPECIFIED Qualifiers: Altered mental status type: disorientation Qualified Code(s): R41.0 - Disorientation, unspecified (4) Atrial fibrillation Code(s): I48.91 - UNSPECIFIED ATRIAL FIBRILLATION (5) Sepsis Code(s): A41.9 - SEPSIS, UNSPECIFIED ORGANISM Qualifiers: Sepsis type: sepsis due to unspecified organism Sepsis acute organ dysfunction status: unspecified Qualified Code(s): A41.9 - Sepsis, unspecified organism (6) UTI (urinary tract infection) Code(s): N39.0 - URINARY TRACT INFECTION, SITE NOT SPECIFIED Qualifiers: Urinary tract infection type: site unspecified Hematuria presence: without hematuria Qualified Code(s): N39.0 - Urinary tract infection, site not specified (7) CAD (coronary artery disease), autologous vein bypass graft Code(s): I25.810 - ATHEROSCLEROSIS OF CABG W/O ANGINA PECTORIS Qualifiers: Associated angina: without angina Qualified Code(s): I25.810 - Atherosclerosis of coronary artery bypass graft(s) without angina pectoris (8) COPD (chronic obstructive pulmonary disease) Code(s): J44.9 - CHRONIC OBSTRUCTIVE PULMONARY DISEASE, UNSPECIFIED Qualifiers: COPD type: unspecified COPD Qualified Code(s): J44.9 - Chronic obstructive pulmonary disease, unspecified (9) History of aortic valve replacement with bioprosthetic valve Code(s): Z95.4 - PRESENCE OF OTHER HEART-VALVE REPLACEMENT (10) History of mitral valve replacement with bioprosthetic valve Code(s): Z95.4 - PRESENCE OF OTHER HEART-VALVE REPLACEMENT (11) Hyperlipidemia Code(s): E78.5 - HYPERLIPIDEMIA, UNSPECIFIED Qualifiers: Hyperlipidemia type: unspecified Qualified Code(s): E78.5 - Hyperlipidemia , unspecified (12) Hypertension Code(s): I10 - ESSENTIAL (PRIMARY) HYPERTENSION Qualifiers: Hypertension type: essential hypertension Qualified Code(s): I10 - Essential (primary) hypertension (13) Hypothyroidism Code(s): E03.9 - HYPOTHYROIDISM, UNSPECIFIED Qualifiers: Hypothyroidism type: unspecified Qualified Code(s): E03.9 - Hypothyroidism , unspecified Assessment/Plan Acute on chronic diastolic heart failure Possible PNA/sepsis UTI Acute Metabolic Encephalopathy Transaminitis with elevated Alk phos COPD SSS s/p PPM placement Atrial fibrillation Hypothyroidism -- imaging/lab results noted -- repeat blood culture neg 24 hrs, suspected initial set contaminated -- will continue Zosyn for now, d/c Vancomycin -- continue monitor wbc/temp trend, vitals closely - wbc remains elevated but stable, repeat cbc/cmp in a.m. -- Neurosurgical evaluation noted
[2019-08-04] MEDS: LIDOCAINE PATCH REMOVAL MC SCH (21:57)
[2019-08-05] MEDS ORDERED: DEXTROSE 5%-WATER - 50 ML IVPB ONE ×3 (03:02→17:18)
[2019-08-05] MEDS ORDERED: PIPERACILLIN/TAZOBACTAM 3.375 GM VIAL IVPB ONE ×3 (03:02→17:18)
[2019-08-05] MEDS: PIPERACILLIN/TAZOB 3.375 GM 3.375 GM in DEXTROSE 5%-WATER - 50 ML IVPB SCH ×3 (03:15→17:22)
[2019-08-05 04:06] LABS: HEP B CORE AB, TOT Negative (Negative)
[2019-08-05] MEDS ORDERED: PT OWN MED DRAWER 7, Y5N ONE ×3 (06:27→21:13)
[2019-08-05] MEDS: LEVOTHYROXINE 150 MCG, LEVOTHYROXINE 25 MCG PO SCH (07:01)
[2019-08-05 07:36] LABS: BASO % 0.6 % (0-2.0); EOS % 0.5 % (0-4.5); HEMATOCRIT 37.9 % (32.4-45.2); HEMOGLOBIN 12.7 GM/dL (10.7-15.3); MCHC 33.5 g/dl (32.0-36.0); MEAN CELL VOLUME 89.6 fl (80-96); MEAN PLT VOLUME 9.3 fl (7.5-11.1); MONO % 5.1 % (3.8-10.2); NEUT % 90.8 % (42.8-82.8); PLATELET COUNT 145 K/MM3 (134-434); RBC 4.23 M/mm3 (3.60-5.2); WHITE BLOOD COUNT 15.2 K/mm3 (4.0-10.0)
[2019-08-05 07:44] LABS: INR 3.64 (0.83-1.09); PROTHROMBIN TIME (PATIENT) 43.5 SEC (9.7-13.0)
[2019-08-05 07:48] LABS: ALBUMIN 1.9 g/dl (3.4-5.0); BILIRUBIN,TOTAL 0.7 mg/dL (0.2-1); BLOOD UREA NITROGEN 26.7 mg/dL (7-18); CALCIUM 8.1 mg/dL (8.5-10.1); CREATININE 0.9 mg/dL (0.55-1.3); POTASSIUM 4.5 mmol/L (3.5-5.1)
[2019-08-05] MEDS: FUROSEMIDE 40 MG/4 ML INJECTABLE VIAL IVPUSH SCH ×2 (08:12→11:02)
--- NOTE | 2019-08-05 08:20 | PN ---
Progress Note (short form) - Note Progress Note: NEUROSURGERY LBP without sciatica. Denies new leg weakness, numbness. No new bowel or bladder incontinence. On vanco and zosyn per ID PE: Tmax 99.1, now 98.5, VSS Sleepier this am HEENT- NC/AT; Neck- supple; Cor- Irreg; Chest- decreased BS at bases; Abd- benign; Ext- no sign of DVT CN- intact; Motor- 4+ B UE/LE except B IP 4/5 pain limited; Sensation- intact LT ; DTR- hyporeflexic WBC 15.2 Blood culture- MRSE; repeat blood culture still positive form 08-03 Urine Culture- E Coli head CT- moderate atrophy, no acute bleed or stroke CT Chest-abd: (focused on spine)- extensive spondylosis; L4-5 grade I-II spondhyl;olisthesis, L5-S1 DDD/narrowing, central though R > L L1-2 posterior bridging osteophytes with thecal sac impingement, no lytic lesion or osteo noted Chronic lumbar spine pathology including L4-5 spondylolisthesis and L1-2 calcified disc/bridging osteophytes with resultant stenosis Pain likely secondary to ongoing bacteremia First priority is treatment of MRSE bacteremia On lidoderm patch Would not recommend more aggressive neurosurgical tx given concurrent infection and multiple medical co-morbidities
[2019-08-05] MEDS: SPIRONOLACTONE 25 MG TABLET (FP) PO SCH (10:59)
[2019-08-05] MEDS: DIGOXIN 0.125 MG TABLET (FP) PO SCH (10:59)
[2019-08-05] MEDS: LIDOCAINE 5% TOPICAL PATCH TP SCH (11:00)
[2019-08-05] MEDS: ACETAMINOPHEN 325 MG TABLET (FP) PO PRN ×2 (11:00→23:18)
[2019-08-05] MEDS: PANTOPRAZOLE 40 MG TABLET (FP) PO SCH (11:01)
[2019-08-05] MEDS: VANCOMYCIN 1 GRAM (PRE-DOCKED) 1,000 MG/250 ML BAG IVPB SCH ×2 (11:01→21:23)
[2019-08-05] MEDS: CARVEDILOL 6.25 MG TABLET (FP) PO SCH ×2 (11:01→21:32)
[2019-08-05] MEDS: MOMETASONE FUROATE 220 MCG/IH INHALER IH SCH ×2 (11:02→21:24)
[2019-08-05] MEDS: TIOTROPIUM BROMIDE 2.5 MCG (SPIRIVA) RESPIMAT INHALER IH SCH (11:02)
--- NOTE | 2019-08-05 11:13 | PN ---
Progress Note, Physician History of Present Illness: PULMONARY MORE ALERT,CONFUSED,-RESP DISTRESS,C/O BACK PAIN - Current Medication List Current Medications: Active Medications Acetaminophen (Tylenol -) 650 mg PO Q6H PRN PRN Reason: Fever Or Pain Last Admin: 08/05/19 11:00 Dose: 650 mg Albuterol Sulfate (Ventolin Hfa Inhaler -) 1 puff IH Q4H PRN PRN Reason: ASTHMA Albuterol Sulfate (Ventolin Hfa Inhaler -) 2 puff IH Q4H PRN PRN Reason: ASTHMA Carvedilol (Coreg -) 6.25 mg PO BID [facility] Last Admin: 08/05/19 11:01 Dose: 6.25 mg Digoxin (Lanoxin -) 0.125 mg PO DAILY [facility] Last Admin: 08/05/19 10:59 Dose: 0.125 mg Diltiazem HCl (Cardizem Cd -) 240 mg PO BID [facility] Last Admin: 08/05/19 10:58 Dose: 240 mg Furosemide (Lasix Injection -) 40 mg IVPUSH DAILY [facility] Last Admin: 08/05/19 11:02 Dose: Not Given Piperacillin Sod/Tazobactam (Sod 3.375 gm/ Dextrose) 50 mls @ 100 mls/hr IVPB Q8H-IV [facility]; Protocol Last Admin: 08/05/19 11:01 Dose: 100 mls/hr Vancomycin HCl (Vancomycin (Pre-Docked)) 1,000 mg in 250 mls @ 166.667 mls/hr IVPB BID [facility]; Protocol Last Admin: 08/05/19 11:01 Dose: 166.667 mls/hr Levothyroxine Sodium 150 mcg/ (Levothyroxine Sodium 25 mcg) 175 mcg PO DAILY@ 0700 [facility] Last Admin: 08/05/19 07:01 Dose: 175 mcg Lidocaine (Lidoderm Patch -) 1 patch TP DAILY [facility] Last Admin: 08/05/19 11:00 Dose: 1 patch Miscellaneous (Lidoderm Patch Removal) 1 each MC DAILY@2200 [facility] Last Admin: 08/04/19 21:57 Dose: 1 each Mometasone Furoate (Asmanex 220mcg -) 1 puff IH BID [facility] Last Admin: 08/05/19 11:02 Dose: 1 puff Pantoprazole Sodium (Protonix -) 40 mg PO DAILY [facility] Last Admin: 08/05/19 11:01 Dose: 40 mg Spironolactone (Aldactone -) 25 mg PO DAILY [facility] Last Admin: 08/05/19 10:59 Dose: 25 mg Tiotropium [place] (Spiriva Respimat) 2 puff IH DAILY [facility] Last Admin: 08/05/19 11:02 Dose: 2 puff - Objective Vital Signs: Vital Signs Temperature 98.5 F 08/05/19 07:00 Pulse Rate 66 08/05/19 10:59 Respiratory Rate 20 08/05/19 10:16 Blood Pressure 138/56 L 08/05/19 07:00 O2 Sat by Pulse Oximetry (%) 91 L 08/05/19 10:16 Constitutional: Yes: Well Nourished, Calm Eyes: Yes: WNL HENT: Yes: WNL Neck: Yes: WNL Cardiovascular: Yes: Pulse Irregular, S1, S2 Respiratory: Yes: Diminished, Other (POOR INSPIRATORY EFFORT) Gastrointestinal: Yes: Normal Bowel Sounds, Soft Extremities: Yes: WNL Edema: No Labs: CBC, BMP 08/05/19 05:30 08/05/19 05:30 INR, PTT INR 3.64 (0.83-1.09) H 08/05/19 05:30 - ....Imaging Chest X-ray: Report Reviewed, Image Reviewed (INCREASED CONGESTION,INCREASED R PLEURAL EFFUSION) Problem List - Problems (1) Acute on chronic diastolic (congestive) heart failure Code(s): I50.33 - ACUTE ON CHRONIC DIASTOLIC (CONGESTIVE) HEART FAILURE (2) Altered mental status Code(s): R41.82 - ALTERED MENTAL STATUS, UNSPECIFIED Qualifiers: Altered mental status type: disorientation Qualified Code(s): R41.0 - Disorientation, unspecified (3) Atrial fibrillation Code(s): I48.91 - UNSPECIFIED ATRIAL FIBRILLATION (4) Elevated troponin Code(s): R74.8 - ABNORMAL LEVELS OF OTHER SERUM ENZYMES (5) Sepsis Code(s): A41.9 - SEPSIS, UNSPECIFIED ORGANISM Qualifiers: Sepsis type: sepsis due to unspecified organism Sepsis acute organ dysfunction status: unspecified Qualified Code(s): A41.9 - Sepsis, unspecified organism (6) UTI (urinary tract infection) Code(s): N39.0 - URINARY TRACT INFECTION, SITE NOT SPECIFIED Qualifiers: Urinary tract infection type: site unspecified Hematuria presence: without hematuria Qualified Code(s): N39.0 - Urinary tract infection, site not specified (7) Atrial fibrillation Code(s): I48.91 - UNSPECIFIED ATRIAL FIBRILLATION Qualifiers: Atrial fibrillation type: chronic Qualified Code(s): I48.2 - Chronic atrial fibrillation (8) CAD (coronary artery disease), autologous vein bypass graft Code(s): I25.810 - ATHEROSCLEROSIS OF CABG W/O ANGINA PECTORIS Qualifiers: Associated angina: without angina Qualified Code(s): I25.810 - Atherosclerosis of coronary artery bypass graft(s) without angina pectoris (9) History of aortic valve replacement with bioprosthetic valve Code(s): Z95.4 - PRESENCE OF OTHER HEART-VALVE REPLACEMENT (10) History of mitral valve replacement with bioprosthetic valve Code(s): Z95.4 - PRESENCE OF OTHER HEART-VALVE REPLACEMENT (11) Hyperlipidemia Code(s): E78.5 - HYPERLIPIDEMIA, UNSPECIFIED Qualifiers: Hyperlipidemia type: unspecified Qualified Code(s): E78.5 - Hyperlipidemia , unspecified (12) Hypertension Code(s): I10 - ESSENTIAL (PRIMARY) HYPERTENSION Qualifiers: Hypertension type: essential hypertension Qualified Code(s): I10 - Essential (primary) hypertension (13) Hypothyroidism Code(s): E03.9 - HYPOTHYROIDISM, UNSPECIFIED Qualifiers: Hypothyroidism type: unspecified Qualified Code(s): E03.9 - Hypothyroidism , unspecified (14) Pleural effusion Code(s): J90 - PLEURAL EFFUSION, NOT ELSEWHERE CLASSIFIED Assessment/Plan Problem List - Problems (1) Acute on chronic diastolic (congestive) heart failure Code(s): I50.33 - ACUTE ON CHRONIC DIASTOLIC (CONGESTIVE) HEART FAILURE Assessment/Plan Acute on Chronic Diastolic Heart Failure UTI Gram Positive Bacteremia r/o Pneumonia Pleural Effusions Sepsis +Troponins likely [place] Ischemia Elevated LFTs CAD s/p CABG Atrial Fibrillation h/o AVR/MVR SSS s/p PPM COPD Hypothyroidism - continue antibiotics per ID - pleural effusions are likely from CHF but cannot rule out pneumonia given bacteremia - IV lasix - monitor urine output, creatinine - rate control - aspiration precautions - O2 to keep SpO2 >90% - DVT prophylaxis DR ANGELES
--- NOTE | 2019-08-05 11:20 | PN ---
Progress Note (short form) - Note Progress Note: 78-year-old female with history of coronary artery disease, status post CABG, history of bioprosthetic mitral and aortic valve replacement in 2015, maze procedure, status post permanent pacemaker for sick sinus syndrome, atrial fibrillation, hypertension, hypertensive cardiovascular disease, congestive heart failure, hypothyroidism.admitted with confusion and fever and is currently being treated for urinary sepsis and bacteremia Patient lethargic and has had confusion she denies having shortness of breath. Echo did not reveal evidence of endocarditis JANICE has been ordered. persistent elevation of WBCs. ALLERGIES: None reported. A Active Medications Acetaminophen (Tylenol -) 650 mg PO Q6H PRN PRN Reason: Fever Or Pain Last Admin: 08/05/19 11:00 Dose: 650 mg Albuterol Sulfate (Ventolin Hfa Inhaler -) 1 puff IH Q4H PRN PRN Reason: ASTHMA Albuterol Sulfate (Ventolin Hfa Inhaler -) 2 puff IH Q4H PRN PRN Reason: ASTHMA Carvedilol (Coreg -) 6.25 mg PO BID [facility] Last Admin: 08/05/19 11:01 Dose: 6.25 mg Digoxin (Lanoxin -) 0.125 mg PO DAILY [facility] Last Admin: 08/05/19 10:59 Dose: 0.125 mg Diltiazem HCl (Cardizem Cd -) 240 mg PO BID [facility] Last Admin: 08/05/19 10:58 Dose: 240 mg Furosemide (Lasix Injection -) 40 mg IVPUSH DAILY [facility] Last Admin: 08/05/19 11:02 Dose: Not Given Piperacillin Sod/Tazobactam (Sod 3.375 gm/ Dextrose) 50 mls @ 100 mls/hr IVPB Q8H-IV [facility]; Protocol Last Admin: 08/05/19 11:01 Dose: 100 mls/hr Vancomycin HCl (Vancomycin (Pre-Docked)) 1,000 mg in 250 mls @ 166.667 mls/hr IVPB BID [facility]; Protocol Last Admin: 08/05/19 11:01 Dose: 166.667 mls/hr Levothyroxine Sodium 150 mcg/ (Levothyroxine Sodium 25 mcg) 175 mcg PO DAILY@ 0700 [facility] Last Admin: 08/05/19 07:01 Dose: 175 mcg Lidocaine (Lidoderm Patch -) 1 patch TP DAILY [facility] Last Admin: 08/05/19 11:00 Dose: 1 patch Miscellaneous (Lidoderm Patch Removal) 1 each MC DAILY@2200 [facility] Last Admin: 08/04/19 21:57 Dose: 1 each Mometasone Furoate (Asmanex 220mcg -) 1 puff IH BID [facility] Last Admin: 08/05/19 11:02 Dose: 1 puff Pantoprazole Sodium (Protonix -) 40 mg PO DAILY [facility] Last Admin: 08/05/19 11:01 Dose: 40 mg Spironolactone (Aldactone -) 25 mg PO DAILY [facility] Last Admin: 08/05/19 10:59 Dose: 25 mg Tiotropium [place] (Spiriva Respimat) 2 puff IH DAILY [facility] Last Admin: 08/05/19 11:02 Dose: 2 puf PHYSICAL EXAMINATION:General: 78-year-old female who is confused and lethargic , afebrile. Last Vital Signs Temp Pulse Resp BP Pulse Ox 98.5 F 66 20 138/56 L 91 L 08/05/19 07:00 08/05/19 10:59 08/05/19 10:16 08/05/19 07:00 08/05/19 10:16 Neck: Supple, no jugular venous distention, carotids were 2+, upstrokes were normal, no bruits were heard and no thyromegaly was present. Heart: No heaves or thrills, S1 is variable, S2 was normal, ejection systolic murmur grade II/ was heard at the 2nd right intercostal space, decrescendo Grade II/ systolic murmur was heard at the apex, no diastolic murmur or gallops were heard. Lungs: Clear on auscultation. Abdomen: Soft, obese and nontender. No hepatosplenomegaly or palpable masses were felt. Extremities: No calf tenderness or dependent edema. Pulses were equal. CT Head Dated: 08/01/19 IMPRESSION: Moderate atrophy and mild periventricular chronic microvascular ischemic disease changes. Left periventricular chronic lacunar infarct along superior margin of the left basal ganglia. No mass lesion, gross acute infarct or intracranial hemorrhage are identified. CBC, BMP 08/05/19 05:30 08/05/19 05:30 IMPRESSION: 1. Mental confusion and agitation most likely related to toxic and/or metabolic encephalopathy. 2. Coronary artery disease, status post coronary artery bypass grafting. 3. Sepsis/bacteremia. 4. Sick sinus syndrome. Status post permanent pacemaker. 5. Status post bioprosthetic mitral valve replacement. 6. Status post bioprosthetic aortic valve replacement. 7. History of congestive heart failure. 8. Hypertension, hypertensive cardiovascular disease. 9. Acute on chronic left ventricular diastolic dysfunction with recurrence of CHF. 10. Permanent atrial fibrillation. 11. Carotid artery disease. 12. History of bronchial asthma. 13. Hypercholesterolemia. 14. Status post maze procedure. 15. Hypothyroidism. RECOMMENDATIONS: 1. Continue with current line of cardiac therapy. 2. Case discussed with resident and she will receive Lasix. 3. F/u BMP. Prognosis: Critical. KESHA CHIN M.D.
--- NOTE | 2019-08-05 11:24 | PN ---
Teaching Attending Note Name of Resident: Abram Levy ATTENDING PHYSICIAN STATEMENT I saw and evaluated the patient. I reviewed the resident's note and discussed the case with the resident. I agree with the resident's findings and plan as documented with exceptions below. SUBJECTIVE: Patient seen and examined. reports low back pain, reports being uncomfortable, otherwise limited ROS. OBJECTIVE: Vital Signs Period Temp Pulse Resp BP Sys/Agudelo Pulse Ox Last 24 Hr 97.6 F-101.1 F 51-66 20-34 120-139/55-68 91-93 Intake & Output 08/02/19 08/03/19 08/04/19 08/05/19 23:59 23:59 23:59 23:59 Intake Total 2100 700 1300 310 Balance 2100 700 1300 310 Weight 199 lb 8 oz General: some tachypnea, weak looking, some use of acessory muscles of respiration Neck; Soft, supple Chest; Decreased breath sounds at bases, poor effort, few scattered rales Abdomen;Soft, obese, NT extremities: no pedal edema Musculoskeletal: no point tenderness, vague reports of back pain in lumbosacral area, moves lower extremities freely Home Medications Medication Instructions Recorded Albuterol Sulfate [Proair Hfa -] 1 - 2 inh PO PRN PRN 05/28/12 Cholecalciferol (Vitamin D3) 1,000 unit PO DAILY 05/28/12 [Vitamin D] Digoxin [Lanoxin -] 0.125 mg PO DAILY 05/28/12 Furosemide [Lasix -] 40 mg PO DAILY 05/28/12 Levothyroxine [Synthroid -] 175 mcg PO DAILY 05/28/12 Multivits W-Fe,Other Min/Lut 1 each PO DAILY 05/28/12 [Centrum Silver Ultra Women Tab] Atorvastatin Calcium [Lipitor] 10 mg PO HS 06/24/13 Ranitidine HCl [Zantac] 150 mg PO BID 06/24/13 Acetaminophen [Tylenol] 650 mg PO PRN PRN 08/19/15 Potassium Chloride [Klor-Con M20] 20 meq PO BID 08/19/15 Diltiazem Cd [Cardizem Cd -] 240 mg PO BID #60 cap.cd.24h 09/07/15 Spironolactone [Aldactone -] 25 mg PO DAILY #30 tablet 01/28/17 Carvedilol 6.25 mg PO BID 05/20/19 Umeclidinium [place] [Incruse 62.5 mcg IH DAILY 05/26/19 Ellipta] Beclomethasone Dipropionate [Qvar] 8.7 gm IH BID 06/03/19 Nitroglycerin Sublingual 0.6 mg SL DAILY PRN 06/03/19 [Nitrostat -] Active Medications Acetaminophen (Tylenol -) 650 mg PO Q6H PRN PRN Reason: Fever Or Pain Last Admin: 08/05/19 11:00 Dose: 650 mg Albuterol Sulfate (Ventolin Hfa Inhaler -) 1 puff IH Q4H PRN PRN Reason: ASTHMA Albuterol Sulfate (Ventolin Hfa Inhaler -) 2 puff IH Q4H PRN PRN Reason: ASTHMA Carvedilol (Coreg -) 6.25 mg PO BID [facility] Last Admin: 08/05/19 11:01 Dose: 6.25 mg Digoxin (Lanoxin -) 0.125 mg PO DAILY [facility] Last Admin: 08/05/19 10:59 Dose: 0.125 mg Diltiazem HCl (Cardizem Cd -) 240 mg PO BID [facility] Last Admin: 08/05/19 10:58 Dose: 240 mg Furosemide (Lasix Injection -) 40 mg IVPUSH DAILY [facility] Last Admin: 08/05/19 11:02 Dose: Not Given Piperacillin Sod/Tazobactam (Sod 3.375 gm/ Dextrose) 50 mls @ 100 mls/hr IVPB Q8H-IV [facility]; Protocol Last Admin: 08/05/19 11:01 Dose: 100 mls/hr Vancomycin HCl (Vancomycin (Pre-Docked)) 1,000 mg in 250 mls @ 166.667 mls/hr IVPB BID [facility]; Protocol Last Admin: 08/05/19 11:01 Dose: 166.667 mls/hr Levothyroxine Sodium 150 mcg/ (Levothyroxine Sodium 25 mcg) 175 mcg PO DAILY@ 0700 [facility] Last Admin: 08/05/19 07:01 Dose: 175 mcg Lidocaine (Lidoderm Patch -) 1 patch TP DAILY [facility] Last Admin: 08/05/19 11:00 Dose: 1 patch Miscellaneous (Lidoderm Patch Removal) 1 each MC DAILY@2200 [facility] Last Admin: 08/04/19 21:57 Dose: 1 each Mometasone Furoate (Asmanex 220mcg -) 1 puff IH BID [facility] Last Admin: 08/05/19 11:02 Dose: 1 puff Pantoprazole Sodium (Protonix -) 40 mg PO DAILY [facility] Last Admin: 08/05/19 11:01 Dose: 40 mg Spironolactone (Aldactone -) 25 mg PO DAILY [facility] Last Admin: 08/05/19 10:59 Dose: 25 mg Tiotropium [place] (Spiriva Respimat) 2 puff IH DAILY [facility] Last Admin: 08/05/19 11:02 Dose: 2 puff Microbiology 08/03/19 12:07 Blood - Peripheral Venous Blood Culture - Preliminary Pending Organism 08/03/19 12:15 Blood - Peripheral Venous Blood Culture - Preliminary Pending Organism 08/01/19 11:58 Blood - Peripheral Venous Blood Culture - Final Staphylococcus Epidermidis 08/01/19 11:58 Blood - Peripheral Venous Blood Culture - Final Staphylococcus Epidermidis 08/01/19 11:38 Urine - Urine Clean Catch Urine Culture - Final Escherichia Coli Diphtheroid/Corynebacterium CXR from today images and results reviewed ASSESSMENT AND PLAN: 78 yof with PMHx of coronary artery disease, status post CABG, history of bioprosthetic mitral and aortic valve replacement in 2014, maze procedure, status post permanent pacemaker for sick sinus syndrome, atrial fibrillation, hypertension, hypertensive cardiovascular disease, HFpEF, hypothyroidism admitted with AMS, found with UTI/bacteremia. -Persistent MRSE bacteremia -Sepsis -Acute hypoxic respiratory failure -Acute Diastolic heart failure exacerbation, in the setting of volume resuscitation +/- sepsis -r//o ARDS -Suspected bibasilar PNA -Bilateral pleural effusions, from above -Complicated E. Coli UTI -AMS suspect toxic metabolic encephalopathy from above -Elevated troponin, suspect demand mediated Type II NSTEMI from above -Abnormal LFTs, ?unlikely GB etiology, vs sepsis related -Afib s/p PPM -BIoprosthetic AVR/MVR -COPD -HLD Plan: repeat blood cx pos Zosyn/vancomycin, discussed with Dr. Caicedo TTE results noted. cardiology input for possible JANICE. CXR reviewed, worse, continue IV lasix. Check ABG, close monitoring. Bipap prn to assist in work of breathing. Discuss with pulmonary. CT chest/A/P results noted Unable to get MRI given PPM. Discuss with radiology if CT LS spine able to provide additional info over CT A/P. Neurosurgery input noted. GI input noted. LFTs improved. Off IVF. Trop trended down. Cardiology input noted. Continue coreg/digoxin/diltiazem/spironolactone as hemodynamics tolerate. Coumadin per INR dosing. Hold today. Nebs prn, spiriva DVTPPX on coumadin Dispo close hemodynamic monitoring, escalation of care/ICU based on clinical course.
[2019-08-05 12:28] LABS: ARTERIAL BLD GAS O2 SATURATION 91.5 % (95-98); ARTERIAL BLOOD GAS PCO2 24.6 mmHg (35-45); ARTERIAL BLOOD GAS PO2 61.2 mmHg (80-100); ARTERIAL BLOOD GAS pH 7.51 (7.35-7.45)
[2019-08-05 12:54] LABS: N-TERMINAL BNP 13282.2 pg/ml (5-450)
--- NOTE | 2019-08-05 13:19 | PN ---
Progress Note, Physician History of Present Illness: back pain main issues still very weak - Current Medication List Current Medications: Active Medications Acetaminophen (Tylenol -) 650 mg PO Q6H PRN PRN Reason: Fever Or Pain Last Admin: 08/05/19 11:00 Dose: 650 mg Albuterol Sulfate (Ventolin Hfa Inhaler -) 1 puff IH Q4H PRN PRN Reason: ASTHMA Albuterol Sulfate (Ventolin Hfa Inhaler -) 2 puff IH Q4H PRN PRN Reason: ASTHMA Carvedilol (Coreg -) 6.25 mg PO BID [facility] Last Admin: 08/05/19 11:01 Dose: 6.25 mg Digoxin (Lanoxin -) 0.125 mg PO DAILY [facility] Last Admin: 08/05/19 10:59 Dose: 0.125 mg Diltiazem HCl (Cardizem Cd -) 240 mg PO BID [facility] Last Admin: 08/05/19 10:58 Dose: 240 mg Furosemide (Lasix Injection -) 40 mg IVPUSH DAILY [facility] Last Admin: 08/05/19 11:02 Dose: Not Given Piperacillin Sod/Tazobactam (Sod 3.375 gm/ Dextrose) 50 mls @ 100 mls/hr IVPB Q8H-IV [facility]; Protocol Last Admin: 08/05/19 11:01 Dose: 100 mls/hr Vancomycin HCl (Vancomycin (Pre-Docked)) 1,000 mg in 250 mls @ 166.667 mls/hr IVPB BID [facility]; Protocol Last Admin: 08/05/19 11:01 Dose: 166.667 mls/hr Levothyroxine Sodium 150 mcg/ (Levothyroxine Sodium 25 mcg) 175 mcg PO DAILY@ 0700 [facility] Last Admin: 08/05/19 07:01 Dose: 175 mcg Lidocaine (Lidoderm Patch -) 1 patch TP DAILY [facility] Last Admin: 08/05/19 11:00 Dose: 1 patch Miscellaneous (Lidoderm Patch Removal) 1 each MC DAILY@2200 [facility] Last Admin: 08/04/19 21:57 Dose: 1 each Mometasone Furoate (Asmanex 220mcg -) 1 puff IH BID [facility] Last Admin: 08/05/19 11:02 Dose: 1 puff Pantoprazole Sodium (Protonix -) 40 mg PO DAILY [facility] Last Admin: 08/05/19 11:01 Dose: 40 mg Spironolactone (Aldactone -) 25 mg PO DAILY [facility] Last Admin: 08/05/19 10:59 Dose: 25 mg Tiotropium [place] (Spiriva Respimat) 2 puff IH DAILY [facility] Last Admin: 08/05/19 11:02 Dose: 2 puff - Objective Vital Signs: Vital Signs Temperature 99.2 F 08/05/19 11:00 Pulse Rate 57 L 08/05/19 11:00 Respiratory Rate 16 08/05/19 11:00 Blood Pressure 119/50 L 08/05/19 11:00 O2 Sat by Pulse Oximetry (%) 91 L 08/05/19 10:16 Constitutional: Yes: Calm, Other Cardiovascular: Yes: Regular Rate and Rhythm Respiratory: Yes: Regular, CTA Bilaterally Gastrointestinal: Yes: Normal Bowel Sounds, Soft Musculoskeletal: Yes: WNL Extremities: Yes: WNL Neurological: Yes: Alert, Lethargy Psychiatric: Yes: Alert Labs: CBC, BMP 08/05/19 05:30 08/05/19 05:30 INR, PTT INR 3.64 (0.83-1.09) H 08/05/19 05:30 Assessment/Plan A/P Acute Metabolic Encephalopathy Transaminitis with elevated Alk phos COPD SSS s/p PPM placement Atrial fibrillation Hypothyroidism uti gm positive bacteremia plan merari chang blood cx results noted rest as per the team
[2019-08-05 19:46] LABS: EPI CELLS 2.9 /HPF (0-5/HPF); HYALINE CASTS 3 /lpf (0-8); URINE APPEARANCE CLEAR; URINE BACTERIA 0.2 /hpf (NEGATIVE); URINE BILIRUBIN NEGATIVE (NEGATIVE); URINE COLOR YELLOW; URINE GLUCOSE (UA) NEGATIVE (NEGATIVE); URINE KETONE NEGATIVE (NEGATIVE); URINE LEUK ESTERASE TRACE (NEGATIVE); URINE NITRITE NEGATIVE (NEGATIVE); URINE PROTEIN 1+ (NEGATIVE); URINE RBC 3 /hpf (0-4); URINE UROBILINOGEN 0.2 mg/dL (0.2-1.0); URINE WBC 11 /hpf (0-5)
[2019-08-05 20:01] LABS: YEAST NEGATIVE (NEGATIVE)
[2019-08-05] MEDS: LIDOCAINE PATCH REMOVAL MC SCH (21:21)
--- NOTE | 2019-08-05 22:41 | PN ---
Progress Note (short form) - Note Progress Note: HPI: No events noted overnight. Pt in marked pain today and tachypneic. HPI limited 2/2 to patients orientation PE: CBC, BMP 08/05/19 05:30 08/05/19 05:30 Hepatic Panel Total Bilirubin 0.7 mg/dL (0.2-1) 08/05/19 05:30 AST 71 U/L (15-37) H 08/05/19 05:30 ALT 93 U/L (13-61) H 08/05/19 05:30 Alkaline Phosphatase 148 U/L (45-117) H 08/05/19 05:30 Albumin 1.9 g/dl (3.4-5.0) L 08/05/19 05:30 Gen: mild distress, diaphoretic, Awake, alert, oriented x2 HEENT: NC/AT, CHRISTY, MMM LUNGS: Tachypneia, Diminished breath sounds most notable in entire RLL. 3LNC 92% CARD: Irregularly irregular with 3/6 systolic murmur noted ABD: Soft Nt/ND, normoactive BS, no hepatomegaly noted EXT: 2+ DP pulses, no peripheral edema noted BACK: Worsening Paraspinal pain near lumbar spine without skin changes or breakdown SKIN: No rashes or lesions. Sacrum not examined Active Medications Acetaminophen (Tylenol -) 650 mg PO Q6H PRN PRN Reason: Fever Or Pain Last Admin: 08/05/19 11:00 Dose: 650 mg Albuterol Sulfate (Ventolin Hfa Inhaler -) 1 puff IH Q4H PRN PRN Reason: ASTHMA Albuterol Sulfate (Ventolin Hfa Inhaler -) 2 puff IH Q4H PRN PRN Reason: ASTHMA Carvedilol (Coreg -) 6.25 mg PO BID [facility] Last Admin: 08/05/19 21:32 Dose: 6.25 mg Digoxin (Lanoxin -) 0.125 mg PO DAILY [facility] Last Admin: 08/05/19 10:59 Dose: 0.125 mg Diltiazem HCl (Cardizem Cd -) 240 mg PO BID [facility] Last Admin: 08/05/19 21:22 Dose: 240 mg Furosemide (Lasix Injection -) 40 mg IVPUSH DAILY [facility] Last Admin: 08/05/19 11:02 Dose: Not Given Piperacillin Sod/Tazobactam (Sod 3.375 gm/ Dextrose) 50 mls @ 100 mls/hr IVPB Q8H-IV [facility]; Protocol Last Admin: 08/05/19 17:22 Dose: 100 mls/hr Vancomycin HCl (Vancomycin (Pre-Docked)) 1,000 mg in 250 mls @ 166.667 mls/hr IVPB BID [facility]; Protocol Last Admin: 08/05/19 21:23 Dose: 166.667 mls/hr Levothyroxine Sodium 150 mcg/ (Levothyroxine Sodium 25 mcg) 175 mcg PO DAILY@ 0700 [facility] Last Admin: 08/05/19 07:01 Dose: 175 mcg Lidocaine (Lidoderm Patch -) 1 patch TP DAILY [facility] Last Admin: 08/05/19 11:00 Dose: 1 patch Miscellaneous (Lidoderm Patch Removal) 1 each MC DAILY@2200 [facility] Last Admin: 08/05/19 21:21 Dose: Not Given Mometasone Furoate (Asmanex 220mcg -) 1 puff IH BID [facility] Last Admin: 08/05/19 21:24 Dose: 1 puff Pantoprazole Sodium (Protonix -) 40 mg PO DAILY [facility] Last Admin: 08/05/19 11:01 Dose: 40 mg Spironolactone (Aldactone -) 25 mg PO DAILY [facility] Last Admin: 08/05/19 10:59 Dose: 25 mg Tiotropium [place] (Spiriva Respimat) 2 puff IH DAILY [facility] Last Admin: 08/05/19 11:02 Dose: 2 puff Microbiology 08/03/19 12:07 Blood - Peripheral Venous Blood Culture - Preliminary Pending Organism 08/03/19 12:15 Blood - Peripheral Venous Blood Culture - Preliminary Pending Organism 08/01/19 11:58 Blood - Peripheral Venous Blood Culture - Final Staphylococcus Epidermidis 08/01/19 11:58 Blood - Peripheral Venous Blood Culture - Final Staphylococcus Epidermidis 08/01/19 11:38 Urine - Urine Clean Catch Urine Culture - Final Escherichia Coli Diphtheroid/Corynebacterium A/P Acute Metabolic Encephalopathy 2/2 to UTI and G+ Bacteremia 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 HFpEF Subendocardial ischemia Transaminitis with elevated Alk phos COPD SSS s/p PPM placement Atrial fibrillation Hypothyroidism --Stat CXR and ABG given acute change --RLL moderate effusion noted on CXR --Unable to perform diagnostic/therapeutic thoracentesis due to supratherapeutic INR and risk of bleed --Lasix 40mg IVP to continue --G+ bacteremia (cocci in clusters) noted on new blood cultures (uncleared) --Continue Vancomycin 1gm q12h --Continue Zosyn per ID --TTE reviewed without any significant vegetations --given unclearing blood cultures with bioprostesis of mitral valve and aortic valve will consult cardiology for JANICE --Urine culture with lactose fermenting G- bacilli; melendez-sensitive --Consulted Dr. Hayes due to continued back pain: medically treat for now --Unable to get MRI 2/2 to PPM placement --Continue Afib rate control and AC medications; elevated HR noted on telemetry during febrile episodes: --Coreg 6.25mg BID PO --Cardizem 240mg BID --Digoxin 0.125mg PO daily (most recent dig level low) --Continue to hold Warfarin today --Monitor for signs of bleeding --Continue Aldactone 24mg qdaily due to hx of HFpEF --Continue Synthroid 175mcg qdaily; TSH WNL --Demand ischemia 2/2 to sepsis picture --Transaminitis unchanged today. Continue to monitor --holding Lipitor and Tylenol right now --Appreciated all weight loss consultant recommendations FEN: Fluids - Diuresis Electrolyte abnormalities: Mild hyponatremia Nutrition: Sodium controlled PPX: DVT - Supratherapeutic INR GI - Ranitidine BID Dispo: Continue monitoring closely Case discussed with Dr. Orlando Levy, DO - IM PGY-3
[2019-08-06] MEDS ORDERED: DEXTROSE 5%-WATER - 50 ML IVPB ONE ×3 (01:31→17:29)
[2019-08-06] MEDS ORDERED: PIPERACILLIN/TAZOBACTAM 3.375 GM VIAL IVPB ONE ×3 (01:31→17:29)
[2019-08-06] MEDS: PIPERACILLIN/TAZOB 3.375 GM 3.375 GM in DEXTROSE 5%-WATER - 50 ML IVPB SCH ×3 (01:34→17:32)
[2019-08-06] MEDS: LEVOTHYROXINE 150 MCG, LEVOTHYROXINE 25 MCG PO SCH (06:38)
[2019-08-06 07:12] LABS: BASO % 0.3 % (0-2.0); EOS % 0.5 % (0-4.5); HEMATOCRIT 35.8 % (32.4-45.2); LYMPH % 4.1 % (8-40); MCH 29.8 pg (25.7-33.7); MCHC 33.6 g/dl (32.0-36.0); MEAN CELL VOLUME 88.6 fl (80-96); MONO % 4.8 % (3.8-10.2); NEUT % 90.3 % (42.8-82.8); PLATELET COUNT 142 K/MM3 (134-434); RBC 4.04 M/mm3 (3.60-5.2); RDW 15.5 % (11.6-15.6); WHITE BLOOD COUNT 13.9 K/mm3 (4.0-10.0)
[2019-08-06 07:53] LABS: ALBUMIN 1.7 g/dl (3.4-5.0); BILIRUBIN,TOTAL 0.6 mg/dL (0.2-1); BLOOD UREA NITROGEN 26.4 mg/dL (7-18); CALCIUM 7.8 mg/dL (8.5-10.1); CREATININE 0.8 mg/dL (0.55-1.3); MAGNESIUM 1.9 mg/dL (1.8-2.4); PHOSPHOROUS 3.2 mg/dL (2.5-4.9); TOT PROT 5.6 g/dl (6.4-8.2)
[2019-08-06 07:57] LABS: INR 4.43 (0.83-1.09)
[2019-08-06 07:59] LABS: PROTHROMBIN TIME (PATIENT) 53.1 SEC (9.7-13.0)
--- NOTE | 2019-08-06 09:14 | PN ---
Physical Exam: SUBJECTIVE: Patient seen and examined, more interactive, still c/o back pain. NO dyspnea, chest pain, abdominal or urinary symptoms currently. OBJECTIVE: Vital Signs Period Temp Pulse Resp BP Sys/Agudelo Pulse Ox Last 24 Hr 97.6 F-99.2 F 52-71 16-24 110-131/50-62 91-95 Intake & Output 08/03/19 08/04/19 08/05/19 08/06/19 23:59 23:59 23:59 23:59 Intake Total 700 1300 1760 200 Output Total 300 500 Balance 700 1300 1460 -300 Weight 199 lb 8 oz 199 lb 3.2 oz General: comfortable, more awake, no use of accessory muscles of respiration Neck; Soft, supple Chest; Decreased breath sounds at bases, poor effort, few scattered rales Abdomen;Soft, obese, NT extremities: no pedal edema Musculoskeletal: SLR upto 10 degrees R<L, limited by back pain, no point tenderness, limited exam Laboratory Results - last 24 hr 08/05/19 08/05/19 08/05/19 05:30 12:18 18:30 WBC RBC Hgb Hct MCV MCH MCHC RDW Plt Count MPV Absolute Neuts (auto) Neutrophils % Lymphocytes % Monocytes % Eosinophils % Basophils % Nucleated RBC % PT with INR INR Anticoagulation Therapy No Result Required. Puncture Site No Result Required. ABG pH 7.51 H ABG pCO2 at Pt Temp 24.6 L ABG pO2 at Pt Temp 61.2 L ABG HCO3 19.2 L ABG O2 Sat (Measured) 91.5 L ABG O2 Content 17.2 ABG Base Excess -2.0 Jeff Test No Result Required. O2 Delivery Device No Result Required. Oxygen Flow Rate No Result Required. Vent Mode No Result Required. Vent Rate No Result Required. Mechanical Rate No Result Required. Pressure Support Vent No Result Required. Sodium 133 L Potassium 4.5 Chloride 102 Carbon Dioxide 22 Anion Gap 9 BUN 26.7 H Creatinine 0.9 Est GFR (CKD-EPI)AfAm 70.48 Est GFR (CKD-EPI)NonAf 60.81 Random Glucose 106 Calcium 8.1 L Phosphorus Magnesium 2.0 Total Bilirubin 0.7 AST 71 H ALT 93 H Alkaline Phosphatase 148 H B-Natriuretic Peptide 17235.2 H Total Protein 6.0 L Albumin 1.9 L Urine Color Yellow Urine Appearance Clear Urine pH 5.0 Ur Specific [place] 1.016 Urine Protein 1+ H Urine Glucose (UA) Negative Urine Ketones Negative Urine Blood 2+ H Urine Nitrite Negative Urine Bilirubin Negative Urine Urobilinogen 0.2 Ur Leukocyte Esterase Trace Urine WBC (Auto) 11 Urine RBC (Auto) 3 Urine Casts (Auto) 3 U Epithel Cells (Auto) 2.9 Urine Bacteria (Auto) 0.2 Urine Yeast (Auto) Negative 08/06/19 08/06/19 08/06/19 05:58 05:58 05:58 WBC 13.9 H RBC 4.04 Hgb 12.0 Hct 35.8 MCV 88.6 MCH 29.8 MCHC 33.6 RDW 15.5 Plt Count 142 MPV 9.0 Absolute Neuts (auto) 12.5 H Neutrophils % 90.3 H Lymphocytes % 4.1 L D Monocytes % 4.8 Eosinophils % 0.5 Basophils % 0.3 Nucleated RBC % 0 PT with INR 53.10 H INR 4.43 H* Anticoagulation Therapy Puncture Site ABG pH ABG pCO2 at Pt Temp ABG pO2 at Pt Temp ABG HCO3 ABG O2 Sat (Measured) ABG O2 Content ABG Base Excess Jeff Test O2 Delivery Device Oxygen Flow Rate Vent Mode Vent Rate Mechanical Rate Pressure Support Vent Sodium 132 L Potassium 4.0 Chloride 101 Carbon Dioxide 22 Anion Gap 9 BUN 26.4 H Creatinine 0.8 Est GFR (CKD-EPI)AfAm 81.27 Est GFR (CKD-EPI)NonAf 70.12 Random Glucose 97 Calcium 7.8 L Phosphorus 3.2 Magnesium 1.9 Total Bilirubin 0.6 AST 62 H ALT 88 H Alkaline Phosphatase 144 H B-Natriuretic Peptide Total Protein 5.6 L Albumin 1.7 L Urine Color Urine Appearance Urine pH Ur Specific [place] Urine Protein Urine Glucose (UA) Urine Ketones Urine Blood Urine Nitrite Urine Bilirubin Urine Urobilinogen Ur Leukocyte Esterase Urine WBC (Auto) Urine RBC (Auto) Urine Casts (Auto) U Epithel Cells (Auto) Urine Bacteria (Auto) Urine Yeast (Auto) Active Medications Generic Name Dose Route Start Last Admin Trade Name Freq PRN Reason Stop Dose Admin Acetaminophen 650 mg 08/04/19 18:34 08/05/19 23:18 Tylenol - PO 650 mg Q6H PRN Administration Fever Or Pain Albuterol Sulfate 1 puff 08/01/19 16:34 Ventolin Hfa Inhaler - IH Q4H PRN ASTHMA Albuterol Sulfate 2 puff 08/01/19 16:47 Ventolin Hfa Inhaler - IH Q4H PRN ASTHMA Carvedilol 6.25 mg 08/01/19 22:00 08/05/19 21:32 Coreg - PO 6.25 mg BID [facility] Administration Digoxin 0.125 mg 08/02/19 10:00 08/05/19 10:59 Lanoxin - PO 0.125 mg DAILY [facility] Administration Diltiazem HCl 240 mg 08/01/19 22:00 08/05/19 21:22 Cardizem Cd - PO 240 mg BID [facility] Administration Furosemide 40 mg 08/04/19 15:00 08/05/19 11:02 Lasix Injection - IVPUSH Not Given DAILY [facility] Piperacillin Sod/Tazobactam 50 mls @ 100 mls/hr 08/02/19 13:30 08/06/19 01:34 Sod 3.375 gm/ Dextrose IVPB 100 mls/hr Q8H-IV [facility] Administration Protocol Vancomycin HCl 1,000 mg in 250 mls @ 166.667 mls/hr 08/04/19 10:00 08/05/19 21:23 Vancomycin (Pre-Docked) IVPB 166.667 mls/hr BID [facility] Administration Protocol Levothyroxine Sodium 150 mcg/ 175 mcg 08/02/19 07:00 08/06/19 06:38 Levothyroxine Sodium 25 mcg PO 175 mcg DAILY@0700 [facility] Administration Lidocaine 1 patch 08/04/19 13:30 08/05/19 11:00 Lidoderm Patch - TP 1 patch DAILY [facility] Administration Miscellaneous 1 each 08/04/19 22:00 08/05/19 21:21 Lidoderm Patch Removal MC Not Given DAILY@2200 [facility] Mometasone Furoate 1 puff 08/04/19 10:00 08/05/19 21:24 Asmanex 220mcg - IH 1 puff BID [facility] Administration Pantoprazole Sodium 40 mg 08/03/19 10:00 08/05/19 11:01 Protonix - PO 40 mg DAILY [facility] Administration Spironolactone 25 mg 08/02/19 10:00 08/05/19 10:59 Aldactone - PO 25 mg DAILY [facility] Administration Tiotropium [place] 2 puff 08/02/19 10:00 08/05/19 11:02 Spiriva Respimat IH 2 puff DAILY [facility] Administration Microbiology 08/03/19 12:15 Blood - Peripheral Venous Blood Culture - Preliminary Staphylococcus Coagulase Neg 08/03/19 12:07 Blood - Peripheral Venous Blood Culture - Preliminary Staphylococcus Coagulase Neg 08/01/19 11:58 Blood - Peripheral Venous Blood Culture - Final Staphylococcus Epidermidis 08/01/19 11:58 Blood - Peripheral Venous Blood Culture - Final Staphylococcus Epidermidis 08/01/19 11:38 Urine - Urine Clean Catch Urine Culture - Final Escherichia Coli Diphtheroid/Corynebacterium ASSESSMENT/PLAN: 78 yof with PMHx of coronary artery disease, status post CABG, history of bioprosthetic mitral and aortic valve replacement in 2014, maze procedure, status post permanent pacemaker for sick sinus syndrome, atrial fibrillation, hypertension, hypertensive cardiovascular disease, HFpEF, hypothyroidism admitted with AMS, found with UTI/bacteremia. -Persistent MRSE bacteremia -Sepsis -Acute hypoxic respiratory failure -Acute Diastolic heart failure exacerbation, in the setting of volume resuscitation +/- sepsis -r//o ARDS -Suspected bibasilar PNA -Bilateral pleural effusions, from above -Complicated E. Coli UTI -AMS suspect toxic metabolic encephalopathy from above -Elevated troponin, suspect demand mediated Type II NSTEMI from above -Low back pain -Abnormal LFTs, ?unlikely GB etiology, vs sepsis related -Afib s/p PPM -BIoprosthetic AVR/MVR -COPD -HLD Plan: Follow up repeat blood cx sent from 08/05/2019. Zosyn/vancomycin per ID. TTE results noted. Cardiology input for possible JANICE. Continue IV lasix. ABG noted, close monitoring. Bipap prn to assist in work of breathing. Pulmonary input noted. CT chest/A/P results noted Unable to get MRI given PPM. Discuss with radiology about optimal LS spine imaging if persistent symptoms/bacteremia. Neurosurgery input noted. GI input noted. LFTs improved. Off IVF. Trop trended down. Cardiology input noted. Continue coreg/digoxin/diltiazem/spironolactone as hemodynamics tolerate. Coumadin per INR dosing. Avoid rapid reversal for now. Hold today. Nebs prn, spiriva PT eval, OOB. DVTPPX on coumadin Dispo close hemodynamic monitoring, escalation of care/ICU based on clinical course. Discussed with patient and nursing. Visit type - Emergency Visit Emergency Visit: Yes ED Registration Date: 08/01/19 Care time: The patient presented to the Emergency Department on the above date and was hospitalized for further evaluation of their emergent condition. - New Patient This patient is new to me today: No - Critical Care Critical Care patient: No - Discharge Referral Referred to [facility] No
[2019-08-06] MEDS: DIGOXIN 0.125 MG TABLET (FP) PO SCH (10:11)
[2019-08-06] MEDS: CARVEDILOL 6.25 MG TABLET (FP) PO SCH ×2 (10:12→23:04)
[2019-08-06] MEDS: PANTOPRAZOLE 40 MG TABLET (FP) PO SCH (10:12)
[2019-08-06] MEDS: LIDOCAINE 5% TOPICAL PATCH TP SCH (10:12)
[2019-08-06] MEDS: TIOTROPIUM BROMIDE 2.5 MCG (SPIRIVA) RESPIMAT INHALER IH SCH (10:13)
[2019-08-06] MEDS: MOMETASONE FUROATE 220 MCG/IH INHALER IH SCH ×2 (10:14→23:05)
[2019-08-06] MEDS: VANCOMYCIN 1 GRAM (PRE-DOCKED) 1,000 MG/250 ML BAG IVPB SCH ×2 (10:18→23:04)
[2019-08-06] MEDS: FUROSEMIDE 40 MG/4 ML INJECTABLE VIAL IVPUSH SCH (10:19)
[2019-08-06] MEDS: SPIRONOLACTONE 25 MG TABLET (FP) PO SCH (10:23)
--- NOTE | 2019-08-06 12:45 | PN ---
Progress Note (short form) - Note Progress Note: NEUROSURGERY LBP without sciatica. Denies new leg weakness, numbness. On vanco and zosyn per ID PE: AF, VSS HEENT- NC/AT; Neck- supple; Cor- Irreg; Chest- decreased BS at bases; Abd- benign; Ext- no sign of DVT CN- intact; Motor- 4+ B UE/LE except B IP 4/5 pain limited; Sensation- intact LT ; DTR- hyporeflexic WBC 13.9 Blood culture- MRSE; repeat blood culture still positive form 08-03, 08-05 pending Urine Culture- E Coli head CT- moderate atrophy, no acute bleed or stroke CT Chest-abd: (focused on spine)- extensive spondylosis; L4-5 grade I-II spondhyl;olisthesis, L5-S1 DDD/narrowing, central though R > L L1-2 posterior bridging osteophytes with thecal sac impingement, no lytic lesion or osteo noted Chronic lumbar spine pathology including L4-5 spondylolisthesis and L1-2 calcified disc/bridging osteophytes with resultant stenosis Pain likely secondary to ongoing bacteremia as there is no evidence of acute discitis or osteo on CT Treatment of MRSE bacteremia/ID f/u On lidoderm patch Add Neurontin 100 mg tid for pain Would not recommend more aggressive neurosurgical tx given concurrent infection and multiple medical co-morbidities
--- NOTE | 2019-08-06 13:34 | PN ---
Progress Note, Physician History of Present Illness: Events noted. Pt currently without distress on O2 NC but weak. Afebrile. Has been complaining of low back pain. Blood culture results noted. - Current Medication List Current Medications: Active Medications Acetaminophen (Tylenol -) 650 mg PO Q6H PRN PRN Reason: Fever Or Pain Last Admin: 08/05/19 23:18 Dose: 650 mg Albuterol Sulfate (Ventolin Hfa Inhaler -) 1 puff IH Q4H PRN PRN Reason: ASTHMA Albuterol Sulfate (Ventolin Hfa Inhaler -) 2 puff IH Q4H PRN PRN Reason: ASTHMA Carvedilol (Coreg -) 6.25 mg PO BID [facility] Last Admin: 08/06/19 10:12 Dose: 6.25 mg Digoxin (Lanoxin -) 0.125 mg PO DAILY [facility] Last Admin: 08/06/19 10:11 Dose: 0.125 mg Diltiazem HCl (Cardizem Cd -) 240 mg PO BID [facility] Last Admin: 08/06/19 10:11 Dose: 240 mg Furosemide (Lasix Injection -) 40 mg IVPUSH DAILY [facility] Last Admin: 08/06/19 10:19 Dose: 40 mg Gabapentin (Neurontin -) 100 mg PO TID [facility] Piperacillin Sod/Tazobactam (Sod 3.375 gm/ Dextrose) 50 mls @ 100 mls/hr IVPB Q8H-IV [facility]; Protocol Last Admin: 08/06/19 10:15 Dose: 100 mls/hr Vancomycin HCl (Vancomycin (Pre-Docked)) 1,000 mg in 250 mls @ 166.667 mls/hr IVPB BID [facility]; Protocol Last Admin: 08/06/19 10:18 Dose: 166.667 mls/hr Levothyroxine Sodium 150 mcg/ (Levothyroxine Sodium 25 mcg) 175 mcg PO DAILY@ 0700 [facility] Last Admin: 08/06/19 06:38 Dose: 175 mcg Lidocaine (Lidoderm Patch -) 1 patch TP DAILY [facility] Last Admin: 08/06/19 10:12 Dose: 1 patch Miscellaneous (Lidoderm Patch Removal) 1 each MC DAILY@2200 [facility] Last Admin: 08/05/19 21:21 Dose: Not Given Mometasone Furoate (Asmanex 220mcg -) 1 puff IH BID [facility] Last Admin: 08/06/19 10:14 Dose: 1 puff Pantoprazole Sodium (Protonix -) 40 mg PO DAILY [facility] Last Admin: 08/06/19 10:12 Dose: 40 mg Spironolactone (Aldactone -) 25 mg PO DAILY [facility] Last Admin: 08/06/19 10:23 Dose: 25 mg Tiotropium [place] (Spiriva Respimat) 2 puff IH DAILY [facility] Last Admin: 08/06/19 10:13 Dose: 2 puff - Objective Vital Signs: Vital Signs Temperature 97.8 F 08/06/19 10:00 Pulse Rate 68 08/06/19 10:11 Respiratory Rate 24 H 08/06/19 10:00 Blood Pressure 123/63 08/06/19 10:00 O2 Sat by Pulse Oximetry (%) 95 08/06/19 07:52 Constitutional: Yes: No Distress, Calm Eyes: Yes: Conjunctiva Clear Cardiovascular: Yes: Regular Rate and Rhythm Respiratory: Yes: Rhonchi Gastrointestinal: Yes: Normal Bowel Sounds, Soft Genitourinary: Yes: WNL Musculoskeletal: Yes: Back Pain Extremities: Yes: WNL Edema: No Integumentary: Yes: WNL Neurological: Yes: Weakness Labs: CBC, BMP 08/06/19 05:58 08/06/19 05:58 INR, PTT INR 4.43 (0.83-1.09) H* 08/06/19 05:58 Microbiology 08/03/19 12:15 Blood - Peripheral Venous Blood Culture - Preliminary Staphylococcus Coagulase Neg 08/03/19 12:07 Blood - Peripheral Venous Blood Culture - Preliminary Staphylococcus Coagulase Neg 08/01/19 11:58 Blood - Peripheral Venous Blood Culture - Final Staphylococcus Epidermidis 08/01/19 11:58 Blood - Peripheral Venous Blood Culture - Final Staphylococcus Epidermidis 08/01/19 11:38 Urine - Urine Clean Catch Urine Culture - Final Escherichia Coli Diphtheroid/Corynebacterium - ....Imaging Cat Scan: Report Reviewed Problem List - Problems (1) Abnormal liver function tests Code(s): R94.5 - ABNORMAL RESULTS OF LIVER FUNCTION STUDIES (2) Acute on chronic diastolic (congestive) heart failure Code(s): I50.33 - ACUTE ON CHRONIC DIASTOLIC (CONGESTIVE) HEART FAILURE (3) Altered mental status Code(s): R41.82 - ALTERED MENTAL STATUS, UNSPECIFIED Qualifiers: Altered mental status type: disorientation Qualified Code(s): R41.0 - Disorientation, unspecified (4) Atrial fibrillation Code(s): I48.91 - UNSPECIFIED ATRIAL FIBRILLATION (5) Sepsis Code(s): A41.9 - SEPSIS, UNSPECIFIED ORGANISM Qualifiers: Sepsis type: sepsis due to unspecified organism Sepsis acute organ dysfunction status: unspecified Qualified Code(s): A41.9 - Sepsis, unspecified organism (6) UTI (urinary tract infection) Code(s): N39.0 - URINARY TRACT INFECTION, SITE NOT SPECIFIED Qualifiers: Urinary tract infection type: site unspecified Hematuria presence: without hematuria Qualified Code(s): N39.0 - Urinary tract infection, site not specified (7) CAD (coronary artery disease), autologous vein bypass graft Code(s): I25.810 - ATHEROSCLEROSIS OF CABG W/O ANGINA PECTORIS Qualifiers: Associated angina: without angina Qualified Code(s): I25.810 - Atherosclerosis of coronary artery bypass graft(s) without angina pectoris (8) COPD (chronic obstructive pulmonary disease) Code(s): J44.9 - CHRONIC OBSTRUCTIVE PULMONARY DISEASE, UNSPECIFIED Qualifiers: COPD type: unspecified COPD Qualified Code(s): J44.9 - Chronic obstructive pulmonary disease, unspecified (9) History of aortic valve replacement with bioprosthetic valve Code(s): Z95.4 - PRESENCE OF OTHER HEART-VALVE REPLACEMENT (10) History of mitral valve replacement with bioprosthetic valve Code(s): Z95.4 - PRESENCE OF OTHER HEART-VALVE REPLACEMENT (11) Hyperlipidemia Code(s): E78.5 - HYPERLIPIDEMIA, UNSPECIFIED Qualifiers: Hyperlipidemia type: unspecified Qualified Code(s): E78.5 - Hyperlipidemia , unspecified (12) Hypertension Code(s): I10 - ESSENTIAL (PRIMARY) HYPERTENSION Qualifiers: Hypertension type: essential hypertension Qualified Code(s): I10 - Essential (primary) hypertension (13) Hypothyroidism Code(s): E03.9 - HYPOTHYROIDISM, UNSPECIFIED Qualifiers: Hypothyroidism type: unspecified Qualified Code(s): E03.9 - Hypothyroidism , unspecified Assessment/Plan Acute on chronic diastolic heart failure Possible PNA/sepsis Coag neg Staph bacteremia UTI Acute Metabolic Encephalopathy Transaminitis with elevated Alk phos COPD SSS s/p PPM placement Atrial fibrillation Hypothyroidism -- repeat blood cultures initially neg but coag neg staph growth noted - source unclear -- continue Zosyn, Vancomycin restarted -- repeat blood cultures sent, monitor for persistent growth - consider CT spine , JANICE -- CT A/P results noted, neurosurgery following -- Pt afebrile, monitor closely -- monitor renal function, Vancomycin trough prior to 4th dose
--- NOTE | 2019-08-06 13:59 | PN ---
Progress Note (short form) - Note Progress Note: PULMONARY Lethargic but arousable. Blood cultures still growing alin epi. Vital Signs Period Temp Pulse Resp BP Sys/Agudelo Pulse Ox Last 24 Hr 97.6 F-98.9 F 52-71 18-24 110-131/54-63 94-95 Gen: lethargic but arousable Heart: RRR Lung: decreased breath sounds at the bases Abd: soft, nontender Ext: no edema CBC, BMP 08/06/19 05:58 08/06/19 05:58 Active Medications Acetaminophen (Tylenol -) 650 mg PO Q6H PRN PRN Reason: Fever Or Pain Last Admin: 08/05/19 23:18 Dose: 650 mg Albuterol Sulfate (Ventolin Hfa Inhaler -) 1 puff IH Q4H PRN PRN Reason: ASTHMA Albuterol Sulfate (Ventolin Hfa Inhaler -) 2 puff IH Q4H PRN PRN Reason: ASTHMA Carvedilol (Coreg -) 6.25 mg PO BID [facility] Last Admin: 08/06/19 10:12 Dose: 6.25 mg Digoxin (Lanoxin -) 0.125 mg PO DAILY [facility] Last Admin: 08/06/19 10:11 Dose: 0.125 mg Diltiazem HCl (Cardizem Cd -) 240 mg PO BID [facility] Last Admin: 08/06/19 10:11 Dose: 240 mg Furosemide (Lasix Injection -) 40 mg IVPUSH DAILY [facility] Last Admin: 08/06/19 10:19 Dose: 40 mg Gabapentin (Neurontin -) 100 mg PO TID [facility] Piperacillin Sod/Tazobactam (Sod 3.375 gm/ Dextrose) 50 mls @ 100 mls/hr IVPB Q8H-IV [facility]; Protocol Last Admin: 08/06/19 10:15 Dose: 100 mls/hr Vancomycin HCl (Vancomycin (Pre-Docked)) 1,000 mg in 250 mls @ 166.667 mls/hr IVPB BID [facility]; Protocol Last Admin: 08/06/19 10:18 Dose: 166.667 mls/hr Levothyroxine Sodium 150 mcg/ (Levothyroxine Sodium 25 mcg) 175 mcg PO DAILY@ 0700 [facility] Last Admin: 08/06/19 06:38 Dose: 175 mcg Lidocaine (Lidoderm Patch -) 1 patch TP DAILY [facility] Last Admin: 08/06/19 10:12 Dose: 1 patch Miscellaneous (Lidoderm Patch Removal) 1 each MC DAILY@2200 [facility] Last Admin: 08/05/19 21:21 Dose: Not Given Mometasone Furoate (Asmanex 220mcg -) 1 puff IH BID [facility] Last Admin: 08/06/19 10:14 Dose: 1 puff Pantoprazole Sodium (Protonix -) 40 mg PO DAILY [facility] Last Admin: 08/06/19 10:12 Dose: 40 mg Spironolactone (Aldactone -) 25 mg PO DAILY [facility] Last Admin: 08/06/19 10:23 Dose: 25 mg Tiotropium [place] (Spiriva Respimat) 2 puff IH DAILY [facility] Last Admin: 08/06/19 10:13 Dose: 2 puff A/P Acute on Chronic Diastolic Heart Failure UTI Staph Epi Bacteremia r/o Pneumonia r/o Paraspinal Abscess Pleural Effusions Sepsis +Troponins likely Demand Ischemia Elevated LFTs CAD s/p CABG Atrial Fibrillation h/o AVR/MVR SSS s/p PPM COPD Hypothyroidism - continue antibiotics per ID - f/u pending cultures - consider spinal imaging - pleural effusions are likely from CHF but cannot rule out pneumonia given bacteremia - continue lasix - monitor urine output, creatinine - rate control - aspiration precautions - O2 to keep SpO2 >90% - DVT prophylaxis Problem List - Problems (1) Acute on chronic diastolic (congestive) heart failure Code(s): I50.33 - ACUTE ON CHRONIC DIASTOLIC (CONGESTIVE) HEART FAILURE
[2019-08-06] MEDS: GABAPENTIN 100 MG CAPSULE (FP) PO SCH ×2 (14:30→23:04)
[2019-08-06] MEDS: LIDOCAINE PATCH REMOVAL MC SCH (23:17)
[2019-08-07] MEDS ORDERED: DEXTROSE 5%-WATER - 50 ML IVPB ONE ×3 (01:28→17:50)
[2019-08-07] MEDS ORDERED: PIPERACILLIN/TAZOBACTAM 3.375 GM VIAL IVPB ONE ×3 (01:28→17:50)
[2019-08-07] MEDS: PIPERACILLIN/TAZOB 3.375 GM 3.375 GM in DEXTROSE 5%-WATER - 50 ML IVPB SCH ×3 (01:30→18:01)
[2019-08-07] MEDS ORDERED: PT OWN MED DRAWER 7, Y5N ONE ×2 (06:29→08:28)
[2019-08-07] MEDS: GABAPENTIN 100 MG CAPSULE (FP) PO SCH ×3 (06:31→23:30)
[2019-08-07] MEDS: LEVOTHYROXINE 150 MCG, LEVOTHYROXINE 25 MCG PO SCH (06:31)
[2019-08-07 07:33] LABS: BASO % 0.2 % (0-2.0); EOS % 0.3 % (0-4.5); HEMATOCRIT 36.7 % (32.4-45.2); HEMOGLOBIN 12.2 GM/dL (10.7-15.3); MCH 29.6 pg (25.7-33.7); MCHC 33.3 g/dl (32.0-36.0); MEAN CELL VOLUME 88.7 fl (80-96); MONO % 4.5 % (3.8-10.2); PLATELET COUNT 138 K/MM3 (134-434); RBC 4.14 M/mm3 (3.60-5.2); RDW 15.9 % (11.6-15.6); WHITE BLOOD COUNT 14.5 K/mm3 (4.0-10.0)
[2019-08-07 07:41] LABS: INR 3.96 (0.83-1.09); PROTHROMBIN TIME (PATIENT) 47.4 SEC (9.7-13.0)
[2019-08-07 08:05] LABS: ALBUMIN 1.7 g/dl (3.4-5.0); BILIRUBIN,TOTAL 0.6 mg/dL (0.2-1); BLOOD UREA NITROGEN 25.8 mg/dL (7-18); CALCIUM 8.1 mg/dL (8.5-10.1); CREATININE 0.9 mg/dL (0.55-1.3); MAGNESIUM 1.9 mg/dL (1.8-2.4); PHOSPHOROUS 3.2 mg/dL (2.5-4.9); POTASSIUM 3.7 mmol/L (3.5-5.1); TOT PROT 5.7 g/dl (6.4-8.2)
[2019-08-07] MEDS: PANTOPRAZOLE 40 MG TABLET (FP) PO SCH (09:16)
[2019-08-07] MEDS: CARVEDILOL 6.25 MG TABLET (FP) PO SCH ×2 (09:16→23:30)
[2019-08-07] MEDS: SPIRONOLACTONE 25 MG TABLET (FP) PO SCH (09:16)
[2019-08-07] MEDS: DIGOXIN 0.125 MG TABLET (FP) PO SCH (09:16)
[2019-08-07] MEDS: MOMETASONE FUROATE 220 MCG/IH INHALER IH SCH ×2 (09:17→23:37)
[2019-08-07] MEDS: LIDOCAINE 5% TOPICAL PATCH TP SCH (09:17)
[2019-08-07] MEDS: FUROSEMIDE 40 MG/4 ML INJECTABLE VIAL IVPUSH SCH (09:18)
[2019-08-07] MEDS: TIOTROPIUM BROMIDE 2.5 MCG (SPIRIVA) RESPIMAT INHALER IH SCH (09:18)
[2019-08-07] MEDS: VANCOMYCIN 1 GRAM (PRE-DOCKED) 1,000 MG/250 ML BAG IVPB SCH ×2 (09:18→23:30)
--- NOTE | 2019-08-07 09:57 | PN ---
Progress Note (short form) - Note Progress Note: NEUROSURGERY LBP better. Denies new leg weakness, numbness. On vanco and zosyn per ID PE: Tmax 98.2, AF, VSS HEENT- NC/AT; Neck- supple; Cor- Irreg; Chest- decreased BS at bases; Abd- benign; Ext- no sign of DVT CN- intact; Motor- 4+ B UE/LE except B IP 4/5 pain limited; Sensation- intact LT ; DTR- hyporeflexic WBC 14.5 Blood culture- MRSE; repeat blood culture + from 08-03, 08-05 BC 1/2 +, likely MRSE still Urine Culture- E Coli head CT- moderate atrophy, no acute bleed or stroke CT Chest-abd: (focused on spine)- extensive spondylosis; L4-5 grade I-II spondhyl;olisthesis, L5-S1 DDD/narrowing, central though R > L L1-2 posterior bridging osteophytes with thecal sac impingement, no lytic lesion or osteo noted Chronic lumbar spine pathology including L4-5 spondylolisthesis and L1-2 calcified disc/bridging osteophytes with resultant stenosis Pain likely secondary to ongoing bacteremia as there is no obvious evidence of acute discitis or osteo on CT Treatment of MRSE bacteremia/ID f/u On lidoderm patch On Neurontin 100 mg tid for pain Mobilize/PT Would not recommend more aggressive neurosurgical tx given concurrent infection/ bacteremia and multiple medical co-morbidities
--- NOTE | 2019-08-07 11:30 | PN ---
Physical Exam: SUBJECTIVE: Patient seen and examined, still with back but some improvement. Overall weak, oriented to self and place, no other complaints. OBJECTIVE: Vital Signs Period Temp Pulse Resp BP Sys/Agudelo Pulse Ox Last 24 Hr 97.5 F-98.6 F 53-74 18-22 116-127/53-69 96 Intake & Output 08/04/19 08/05/19 08/06/19 08/07/19 23:59 23:59 23:59 23:59 Intake Total 1300 1760 1000 50 Output Total 300 2700 Balance 1300 1460 -1700 50 Weight 199 lb 8 oz 199 lb 3.2 oz General: comfortable, more awake, no use of accessory muscles of respiration Neck; Soft, supple Chest; Decreased breath sounds at bases, poor effort, few scattered rales Abdomen;Soft, obese, NT extremities: no pedal edema Musculoskeletal: SLR upto 10 degrees R<L, limited by back pain, no point tenderness, limited exam Laboratory Results - last 24 hr 08/07/19 08/07/19 08/07/19 06:15 06:15 06:15 WBC 14.5 H RBC 4.14 Hgb 12.2 Hct 36.7 MCV 88.7 MCH 29.6 MCHC 33.3 RDW 15.9 H Plt Count 138 MPV 9.0 Absolute Neuts (auto) 13.0 H Neutrophils % 90.0 H Lymphocytes % 5.0 L D Monocytes % 4.5 Eosinophils % 0.3 Basophils % 0.2 Nucleated RBC % 0 PT with INR 47.40 H INR 3.96 H Sodium 134 L Potassium 3.7 Chloride 100 Carbon Dioxide 24 Anion Gap 10 BUN 25.8 H Creatinine 0.9 Est GFR (CKD-EPI)AfAm 70.48 Est GFR (CKD-EPI)NonAf 60.81 Random Glucose 100 Calcium 8.1 L Phosphorus 3.2 Magnesium 1.9 Total Bilirubin 0.6 AST 58 H ALT 77 H Alkaline Phosphatase 167 H Total Protein 5.7 L Albumin 1.7 L Active Medications Generic Name Dose Route Start Last Admin Trade Name Freq PRN Reason Stop Dose Admin Acetaminophen 650 mg 08/04/19 18:34 08/05/19 23:18 Tylenol - PO 650 mg Q6H PRN Administration Fever Or Pain Albuterol Sulfate 1 puff 08/01/19 16:34 Ventolin Hfa Inhaler - IH Q4H PRN ASTHMA Albuterol Sulfate 2 puff 08/01/19 16:47 Ventolin Hfa Inhaler - IH Q4H PRN ASTHMA Carvedilol 6.25 mg 08/01/19 22:00 08/07/19 09:16 Coreg - PO 6.25 mg BID [facility] Administration Digoxin 0.125 mg 08/02/19 10:00 08/07/19 09:16 Lanoxin - PO 0.125 mg DAILY [facility] Administration Diltiazem HCl 240 mg 08/01/19 22:00 08/07/19 09:16 Cardizem Cd - PO 240 mg BID [facility] Administration Furosemide 40 mg 08/04/19 15:00 08/07/19 09:18 Lasix Injection - IVPUSH 40 mg DAILY [facility] Administration Gabapentin 100 mg 08/06/19 14:00 08/07/19 06:31 Neurontin - PO 100 mg TID [facility] Administration Piperacillin Sod/Tazobactam 50 mls @ 100 mls/hr 08/02/19 13:30 08/07/19 09:18 Sod 3.375 gm/ Dextrose IVPB 100 mls/hr Q8H-IV [facility] Administration Protocol Vancomycin HCl 1,000 mg in 250 mls @ 166.667 mls/hr 08/04/19 10:00 08/07/19 09:18 Vancomycin (Pre-Docked) IVPB 166.667 mls/hr BID [facility] Administration Protocol Levothyroxine Sodium 150 mcg/ 175 mcg 08/02/19 07:00 08/07/19 06:31 Levothyroxine Sodium 25 mcg PO 175 mcg DAILY@0700 [facility] Administration Lidocaine 1 patch 08/04/19 13:30 08/07/19 09:17 Lidoderm Patch - TP 1 patch DAILY [facility] Administration Miscellaneous 1 each 08/04/19 22:00 08/06/19 23:17 Lidoderm Patch Removal MC Not Given DAILY@2200 [facility] Mometasone Furoate 1 puff 08/04/19 10:00 08/07/19 09:17 Asmanex 220mcg - IH 1 puff BID [facility] Administration Pantoprazole Sodium 40 mg 08/03/19 10:00 08/07/19 09:16 Protonix - PO 40 mg DAILY [facility] Administration Spironolactone 25 mg 08/02/19 10:00 08/07/19 09:16 Aldactone - PO 25 mg DAILY [facility] Administration Tiotropium [place] 2 puff 08/02/19 10:00 08/07/19 09:18 Spiriva Respimat IH 2 puff DAILY [facility] Administration ASSESSMENT/PLAN: 78 yof with PMHx of coronary artery disease, status post CABG, history of bioprosthetic mitral and aortic valve replacement in 2014, maze procedure, status post permanent pacemaker for sick sinus syndrome, atrial fibrillation, hypertension, hypertensive cardiovascular disease, HFpEF, hypothyroidism admitted with AMS, found with UTI/bacteremia. -Persistent MRSE bacteremia -Sepsis -Acute hypoxic respiratory failure -Acute Diastolic heart failure exacerbation, in the setting of volume resuscitation +/- sepsis -r//o ARDS -Suspected bibasilar PNA -Bilateral pleural effusions, from above -Complicated E. Coli UTI -AMS suspect toxic metabolic encephalopathy from above -Elevated troponin, suspect demand mediated Type II NSTEMI from above -Low back pain -Abnormal LFTs, ?unlikely GB etiology, vs sepsis related -Afib s/p PPM -Bioprosthetic AVR/MVR -COPD -HLD Plan: 3rd set of blood cx pos Discussed with Dr. Daniels radiology, with check CT spine with contrast. Unable to get MRI given PPM Neurosurgery/ID input noted. Zosyn/vanco per ID. Check vanco level before next dose. TTE results noted. Discussed with cardiology, follow up for JANICE. IV lasix with close volume status and renal function monitoring. ABG noted. Respi effort improved. Bipap prn. Pulmonary input noted. CT chest/A/P results noted GI input noted. LFTs improved. Off IVF. Trop trended down. Cardiology input noted. Continue coreg/digoxin/diltiazem/spironolactone as hemodynamics tolerate. Coumadin per INR dosing. Avoid rapid reversal for now. Hold today. Nebs prn, spiriva PT eval, OOB. DVTPPX on coumadin Dispo close hemodynamic monitoring, escalation of care/ICU based on clinical course. Discussed with patient and nursing. Visit type - Emergency Visit Emergency Visit: Yes ED Registration Date: 08/01/19 Care time: The patient presented to the Emergency Department on the above date and was hospitalized for further evaluation of their emergent condition. - New Patient This patient is new to me today: No - Critical Care Critical Care patient: No - Discharge Referral Referred to [facility] Med P.C.: No
--- NOTE | 2019-08-07 12:56 | PN ---
Progress Note (short form) - Note Progress Note: PULMONARY More awake alert today. Persistent positive blood cultures. c/o back pain. Vital Signs Period Temp Pulse Resp BP Sys/Agudelo Pulse Ox Last 24 Hr 97.5 F-98.6 F 53-74 18-22 116-127/53-69 96 Gen: more awake, alert Heart: RRR Lung: decreased breath sounds at the bases Abd: soft, nontender Ext: no edema CBC, BMP 08/07/19 06:15 08/07/19 06:15 Active Medications Acetaminophen (Tylenol -) 650 mg PO Q6H PRN PRN Reason: Fever Or Pain Last Admin: 08/05/19 23:18 Dose: 650 mg Albuterol Sulfate (Ventolin Hfa Inhaler -) 1 puff IH Q4H PRN PRN Reason: ASTHMA Albuterol Sulfate (Ventolin Hfa Inhaler -) 2 puff IH Q4H PRN PRN Reason: ASTHMA Carvedilol (Coreg -) 6.25 mg PO BID [facility] Last Admin: 08/07/19 09:16 Dose: 6.25 mg Digoxin (Lanoxin -) 0.125 mg PO DAILY [facility] Last Admin: 08/07/19 09:16 Dose: 0.125 mg Diltiazem HCl (Cardizem Cd -) 240 mg PO BID [facility] Last Admin: 08/07/19 09:16 Dose: 240 mg Furosemide (Lasix Injection -) 40 mg IVPUSH DAILY [facility] Last Admin: 08/07/19 09:18 Dose: 40 mg Gabapentin (Neurontin -) 100 mg PO TID [facility] Last Admin: 08/07/19 06:31 Dose: 100 mg Piperacillin Sod/Tazobactam (Sod 3.375 gm/ Dextrose) 50 mls @ 100 mls/hr IVPB Q8H-IV [facility]; Protocol Last Admin: 08/07/19 09:18 Dose: 100 mls/hr Vancomycin HCl (Vancomycin (Pre-Docked)) 1,000 mg in 250 mls @ 166.667 mls/hr IVPB BID [facility]; Protocol Last Admin: 08/07/19 09:18 Dose: 166.667 mls/hr Levothyroxine Sodium 150 mcg/ (Levothyroxine Sodium 25 mcg) 175 mcg PO DAILY@ 0700 [facility] Last Admin: 08/07/19 06:31 Dose: 175 mcg Lidocaine (Lidoderm Patch -) 1 patch TP DAILY [facility] Last Admin: 08/07/19 09:17 Dose: 1 patch Miscellaneous (Lidoderm Patch Removal) 1 each MC DAILY@2200 [facility] Last Admin: 08/06/19 23:17 Dose: Not Given Mometasone Furoate (Asmanex 220mcg -) 1 puff IH BID [facility] Last Admin: 08/07/19 09:17 Dose: 1 puff Pantoprazole Sodium (Protonix -) 40 mg PO DAILY [facility] Last Admin: 08/07/19 09:16 Dose: 40 mg Spironolactone (Aldactone -) 25 mg PO DAILY [facility] Last Admin: 08/07/19 09:16 Dose: 25 mg Tiotropium [place] (Spiriva Respimat) 2 puff IH DAILY [facility] Last Admin: 08/07/19 09:18 Dose: 2 puff A/P Acute on Chronic Diastolic Heart Failure UTI Staph Epi Bacteremia r/o Pneumonia r/o Paraspinal Abscess Pleural Effusions Sepsis +Troponins likely Demand Ischemia Elevated LFTs CAD s/p CABG Atrial Fibrillation h/o AVR/MVR SSS s/p PPM COPD Hypothyroidism - continue antibiotics per ID - f/u pending cultures - consider spinal imaging - pleural effusions are likely from CHF but cannot rule out pneumonia given bacteremia - continue lasix - monitor urine output, creatinine - rate control - aspiration precautions - O2 to keep SpO2 >90% - DVT prophylaxis Problem List - Problems (1) Acute on chronic diastolic (congestive) heart failure Code(s): I50.33 - ACUTE ON CHRONIC DIASTOLIC (CONGESTIVE) HEART FAILURE
--- NOTE | 2019-08-07 14:50 | PN ---
Progress Note, Physician History of Present Illness: Pt is more alert today, stating she feels a little bit better today. Remains afebrile but wbc remains elevated. No acute distress currently. - Current Medication List Current Medications: Active Medications Acetaminophen (Tylenol -) 650 mg PO Q6H PRN PRN Reason: Fever Or Pain Last Admin: 08/05/19 23:18 Dose: 650 mg Albuterol Sulfate (Ventolin Hfa Inhaler -) 1 puff IH Q4H PRN PRN Reason: ASTHMA Albuterol Sulfate (Ventolin Hfa Inhaler -) 2 puff IH Q4H PRN PRN Reason: ASTHMA Carvedilol (Coreg -) 6.25 mg PO BID COUNT INCLUDES [facility] Last Admin: 08/07/19 09:16 Dose: 6.25 mg Digoxin (Lanoxin -) 0.125 mg PO DAILY COUNT [facility]CLUDES [facility] Last Admin: 08/07/19 09:16 Dose: 0.125 mg Diltiazem HCl (Cardizem Cd -) 240 mg PO BID COUNT [facility]CLUDES [facility] Last Admin: 08/07/19 09:16 Dose: 240 mg Furosemide (Lasix Injection -) 40 mg IVPUSH DAILY COUNT [facility]CLUDES [facility] Last Admin: 08/07/19 09:18 Dose: 40 mg Gabapentin (Neurontin -) 100 mg PO TID COUNT [facility]CLUDES [facility] Last Admin: 08/07/19 13:19 Dose: 100 mg Piperacillin Sod/Tazobactam (Sod 3.375 gm/ Dextrose) 50 mls @ 100 mls/hr IVPB Q8H-IV COUNT [facility]CLUDES [facility]; Protocol Last Admin: 08/07/19 09:18 Dose: 100 mls/hr Vancomycin HCl (Vancomycin (Pre-Docked)) 1,000 mg in 250 mls @ 166.667 mls/hr IVPB BID COUNT [facility]CLUDES [facility]; Protocol Last Admin: 08/07/19 09:18 Dose: 166.667 mls/hr Levothyroxine Sodium 150 mcg/ (Levothyroxine Sodium 25 mcg) 175 mcg PO DAILY@ 0700 [facility] Last Admin: 08/07/19 06:31 Dose: 175 mcg Lidocaine (Lidoderm Patch -) 1 patch TP DAILY COUNT [facility]CLUDES [facility] Last Admin: 08/07/19 09:17 Dose: 1 patch Miscellaneous (Lidoderm Patch Removal) 1 each MC DAILY@2200 COUNT [facility]CLUDES [facility] Last Admin: 08/06/19 23:17 Dose: Not Given Mometasone Furoate (Asmanex 220mcg -) 1 puff IH BID COUNT INCLUDES [facility] Last Admin: 08/07/19 09:17 Dose: 1 puff Pantoprazole Sodium (Protonix -) 40 mg PO DAILY COUNT [facility]CLUDES [facility] Last Admin: 08/07/19 09:16 Dose: 40 mg Spironolactone (Aldactone -) 25 mg PO DAILY COUNT [facility]CLUD[facility] Last Admin: 08/07/19 09:16 Dose: 25 mg Tiotropium [place] (Spiriva Respimat) 2 puff IH DAILY COUNT INCLUDES [facility] Last Admin: 08/07/19 09:18 Dose: 2 puff - Objective Vital Signs: Vital Signs Temperature 98.2 F 08/07/19 09:08 Pulse Rate 62 08/07/19 09:16 Respiratory Rate 18 08/07/19 09:08 Blood Pressure 127/60 08/07/19 09:08 O2 Sat by Pulse Oximetry (%) 96 08/07/19 09:00 Constitutional: Yes: No Distress, Calm Cardiovascular: Yes: Regular Rate and Rhythm Respiratory: Yes: Diminished (bases) Gastrointestinal: Yes: Normal Bowel Sounds, Soft Genitourinary: Yes: WNL Edema: No Integumentary: Yes: WNL Neurological: Yes: Alert Labs: CBC, BMP 08/07/19 06:15 08/07/19 06:15 INR, PTT INR 3.96 (0.83-1.09) H 08/07/19 06:15 Microbiology 08/03/19 12:15 Blood - Peripheral Venous Blood Culture - Final Staphylococcus Epidermidis 08/03/19 12:07 Blood - Peripheral Venous Blood Culture - Final Staphylococcus Epidermidis 08/05/19 14:30 Blood - Peripheral Venous Blood Culture - Preliminary Pending Organism 08/05/19 14:30 Blood - Peripheral Venous Blood Culture - Preliminary Pending Organism 08/01/19 11:58 Blood - Peripheral Venous Blood Culture - Final Staphylococcus Epidermidis 08/01/19 11:58 Blood - Peripheral Venous Blood Culture - Final Staphylococcus Epidermidis 08/01/19 11:38 Urine - Urine Clean Catch Urine Culture - Final Escherichia Coli Diphtheroid/Corynebacterium - ....Imaging Chest X-ray: Report Reviewed Problem List - Problems (1) Abnormal liver function tests Code(s): R94.5 - ABNORMAL RESULTS OF LIVER FUNCTION STUDIES (2) Acute on chronic diastolic (congestive) heart failure Code(s): I50.33 - ACUTE ON CHRONIC DIASTOLIC (CONGESTIVE) HEART FAILURE (3) Altered mental status Code(s): R41.82 - ALTERED MENTAL STATUS, UNSPECIFIED Qualifiers: Altered mental status type: disorientation Qualified Code(s): R41.0 - Disorientation, unspecified (4) Atrial fibrillation Code(s): I48.91 - UNSPECIFIED ATRIAL FIBRILLATION (5) Sepsis Code(s): A41.9 - SEPSIS, UNSPECIFIED ORGANISM Qualifiers: Sepsis type: sepsis due to unspecified organism Sepsis acute organ dysfunction status: unspecified Qualified Code(s): A41.9 - Sepsis, unspecified organism (6) UTI (urinary tract infection) Code(s): N39.0 - URINARY TRACT INFECTION, SITE NOT SPECIFIED Qualifiers: Urinary tract infection type: site unspecified Hematuria presence: without hematuria Qualified Code(s): N39.0 - Urinary tract infection, site not specified (7) CAD (coronary artery disease), autologous vein bypass graft Code(s): I25.810 - ATHEROSCLEROSIS OF CABG W/O ANGINA PECTORIS Qualifiers: Associated angina: without angina Qualified Code(s): I25.810 - Atherosclerosis of coronary artery bypass graft(s) without angina pectoris (8) COPD (chronic obstructive pulmonary disease) Code(s): J44.9 - CHRONIC OBSTRUCTIVE PULMONARY DISEASE, UNSPECIFIED Qualifiers: COPD type: unspecified COPD Qualified Code(s): J44.9 - Chronic obstructive pulmonary disease, unspecified (9) History of aortic valve replacement with bioprosthetic valve Code(s): Z95.4 - PRESENCE OF OTHER HEART-VALVE REPLACEMENT (10) History of mitral valve replacement with bioprosthetic valve Code(s): Z95.4 - PRESENCE OF OTHER HEART-VALVE REPLACEMENT (11) Hyperlipidemia Code(s): E78.5 - HYPERLIPIDEMIA, UNSPECIFIED Qualifiers: Hyperlipidemia type: unspecified Qualified Code(s): E78.5 - Hyperlipidemia , unspecified (12) Hypertension Code(s): I10 - ESSENTIAL (PRIMARY) HYPERTENSION Qualifiers: Hypertension type: essential hypertension Qualified Code(s): I10 - Essential (primary) hypertension (13) Hypothyroidism Code(s): E03.9 - HYPOTHYROIDISM, UNSPECIFIED Qualifiers: Hypothyroidism type: unspecified Qualified Code(s): E03.9 - Hypothyroidism , unspecified Assessment/Plan Persistent Coag neg Staph bacteremia Acute on chronic diastolic heart failure Pleural effusions/Possible PNA Back pain UTI Acute Metabolic Encephalopathy Transaminitis with elevated Alk phos COPD SSS s/p PPM placement Atrial fibrillation Hypothyroidism -- Blood cultures remain positive (3 sets) -- continue Zosyn and Vancomycin, Vancomycin level ordered -- repeat blood cultures daily -- consider CT spine, JANICE - pt with c/o back pain, +PPM -- continue monitor wbc, renal function Pt afebrile, a bit more alert today Monitor closely
[2019-08-07] MEDS: LIDOCAINE PATCH REMOVAL MC SCH (23:30)
[2019-08-08] MEDS ORDERED: PIPERACILLIN/TAZOBACTAM 3.375 GM VIAL IVPB ONE ×2 (03:07→09:59)
[2019-08-08] MEDS ORDERED: DEXTROSE 5%-WATER - 50 ML IVPB ONE ×3 (03:07→14:36)
[2019-08-08] MEDS: PIPERACILLIN/TAZOB 3.375 GM 3.375 GM in DEXTROSE 5%-WATER - 50 ML IVPB SCH ×2 (03:35→10:30)
[2019-08-08] MEDS: GABAPENTIN 100 MG CAPSULE (FP) PO SCH ×3 (06:03→22:04)
[2019-08-08] MEDS: LEVOTHYROXINE 150 MCG, LEVOTHYROXINE 25 MCG PO SCH (06:03)
[2019-08-08 07:31] LABS: INR 2.94 (0.83-1.09); PROTHROMBIN TIME (PATIENT) 35.1 SEC (9.7-13.0)
[2019-08-08 07:41] LABS: BASO % 0.4 % (0-2.0); EOS % 0.2 % (0-4.5); HEMOGLOBIN 12.6 GM/dL (10.7-15.3); LYMPH % 3.3 % (8-40); MCH 29.9 pg (25.7-33.7); MCHC 33.9 g/dl (32.0-36.0); MEAN CELL VOLUME 88.2 fl (80-96); MEAN PLT VOLUME 8.8 fl (7.5-11.1); MONO % 5.4 % (3.8-10.2); NEUT % 90.7 % (42.8-82.8); PLATELET COUNT 160 K/MM3 (134-434); RDW 15.8 % (11.6-15.6); WHITE BLOOD COUNT 15.5 K/mm3 (4.0-10.0)
[2019-08-08 07:44] LABS: ALBUMIN 1.8 g/dl (3.4-5.0); BILIRUBIN,DIRECT 0.4 mg/dL (0.0-0.2); BILIRUBIN,TOTAL 0.7 mg/dL (0.2-1); MAGNESIUM 1.9 mg/dL (1.8-2.4); PHOSPHOROUS 3.2 mg/dL (2.5-4.9); POTASSIUM 3.9 mmol/L (3.5-5.1); TOT PROT 6.1 g/dl (6.4-8.2)
--- NOTE | 2019-08-08 09:30 | PN ---
Progress Note (short form) - Note Progress Note: HPI: No events noted overnight. HPI limited 2/2 to pt's cognitive deficits. Reports no pain while laying still, however has marked pain when shift/turning in bed PE: Vital Signs Temperature 97.6 F 08/08/19 06:00 Pulse Rate 54 L 08/08/19 06:00 Respiratory Rate 20 08/08/19 06:00 Blood Pressure 137/53 L 08/08/19 06:00 O2 Sat by Pulse Oximetry (%) 96 08/07/19 09:00 Gen: NAD, Awake, alert, oriented x2 HEENT: NC/AT, CHRISTY, MMM LUNGS: RLL rales appreciated no wheezes, diminished inspiratory effort. 2LNC 95% CARD: Irregularly irregular with 3/6 systolic murmur ABD: Soft Nt/ND, normoactive BS, no hepatomegaly EXT: 2+ DP pulses, no peripheral edema noted BACK: Paraspinal pain near lumbar spine without skin changes or breakdown remains SKIN: No rashes or lesions. Sacrum not examined today CBC, BMP 08/08/19 06:00 08/08/19 06:00 Hepatic Panel Total Bilirubin 0.7 mg/dL (0.2-1) 08/08/19 06:00 Direct Bilirubin 0.4 mg/dL (0.0-0.2) H 08/08/19 06:00 AST 56 U/L (15-37) H 08/08/19 06:00 ALT 74 U/L (13-61) H 08/08/19 06:00 Alkaline Phosphatase 193 U/L (45-117) H 08/08/19 06:00 Albumin 1.8 g/dl (3.4-5.0) L 08/08/19 06:00 Active Medications Acetaminophen (Tylenol -) 650 mg PO Q6H PRN PRN Reason: Fever Or Pain Last Admin: 08/05/19 23:18 Dose: 650 mg Albuterol Sulfate (Ventolin Hfa Inhaler -) 1 puff IH Q4H PRN PRN Reason: ASTHMA Albuterol Sulfate (Ventolin Hfa Inhaler -) 2 puff IH Q4H PRN PRN Reason: ASTHMA Carvedilol (Coreg -) 6.25 mg PO BID [facility] Last Admin: 08/07/19 23:30 Dose: 6.25 mg Digoxin (Lanoxin -) 0.125 mg PO DAILY [facility] Last Admin: 08/07/19 09:16 Dose: 0.125 mg Diltiazem HCl (Cardizem Cd -) 240 mg PO BID [facility] Last Admin: 08/07/19 23:30 Dose: 240 mg Furosemide (Lasix Injection -) 40 mg IVPUSH DAILY [facility] Last Admin: 08/07/19 09:18 Dose: 40 mg Gabapentin (Neurontin -) 100 mg PO TID [facility] Last Admin: 08/08/19 06:03 Dose: Not Given Piperacillin Sod/Tazobactam (Sod 3.375 gm/ Dextrose) 50 mls @ 100 mls/hr IVPB Q8H-IV [facility]; Protocol Last Admin: 08/08/19 03:35 Dose: 100 mls/hr Vancomycin HCl (Vancomycin (Pre-Docked)) 1,000 mg in 250 mls @ 166.667 mls/hr IVPB BID [facility]; Protocol Last Admin: 08/07/19 23:30 Dose: 166.667 mls/hr Levothyroxine Sodium 150 mcg/ (Levothyroxine Sodium 25 mcg) 175 mcg PO DAILY@ 0700 [facility] Last Admin: 08/08/19 06:03 Dose: Not Given Lidocaine (Lidoderm Patch -) 1 patch TP DAILY [facility] Last Admin: 08/07/19 09:17 Dose: 1 patch Miscellaneous (Lidoderm Patch Removal) 1 each MC DAILY@2200 [facility] Last Admin: 08/07/19 23:30 Dose: Not Given Mometasone Furoate (Asmanex 220mcg -) 1 puff IH BID [facility] Last Admin: 08/07/19 23:37 Dose: 1 puff Pantoprazole Sodium (Protonix -) 40 mg PO DAILY [facility] Last Admin: 08/07/19 09:16 Dose: 40 mg Spironolactone (Aldactone -) 25 mg PO DAILY [facility] Last Admin: 08/07/19 09:16 Dose: 25 mg Tiotropium [place] (Spiriva Respimat) 2 puff IH DAILY [facility] Last Admin: 08/07/19 09:18 Dose: 2 puff Microbiology 08/05/19 14:30 Blood - Peripheral Venous Blood Culture - Preliminary Staphylococcus Coagulase Neg 08/05/19 14:30 Blood - Peripheral Venous Blood Culture - Preliminary Staphylococcus Coagulase Neg 08/03/19 12:15 Blood - Peripheral Venous Blood Culture - Final Staphylococcus Epidermidis 08/03/19 12:07 Blood - Peripheral Venous Blood Culture - Final Staphylococcus Epidermidis 08/01/19 11:58 Blood - Peripheral Venous Blood Culture - Final Staphylococcus Epidermidis 08/01/19 11:58 Blood - Peripheral Venous Blood Culture - Final Staphylococcus Epidermidis 08/01/19 11:38 Urine - Urine Clean Catch Urine Culture - Final Escherichia Coli Diphtheroid/Corynebacterium A/P Acute Metabolic Encephalopathy 2/2 to UTI and G+ Bacteremia 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 HFpEF Subendocardial ischemia Transaminitis with elevated Alk phos COPD SSS s/p PPM placement Atrial fibrillation Hypothyroidism --NPO for possible JANICE today given unresolving G+ cultures --G+ bacteremia (cocci in clusters) noted on new blood cultures (uncleared) --Vanco trough elevated last night; hold Vanco and check random vanc level --Continue Zosyn per ID --CT spine (cervical, thoracic, lumbar) prelim reads negative; await final report --Unable to get MRI 2/2 to PPM --Urine culture with lactose fermenting G- bacilli; melendez-sensitive --Continue Afib rate control and AC medications; elevated HR noted on telemetry during febrile episodes: --Coreg 6.25mg BID PO --Cardizem 240mg BID --Digoxin 0.125mg PO daily (most recent dig level low) --INR improved to 2.9; would hold 1 more dose of Warfarin and restart 2mg 1800h PO tomorrow based on INR --Monitor for signs of bleeding --Continue Aldactone 25mg qdaily due to hx of HFpEF --Lasix 40mg IVP qdaily to continue --Continue Synthroid 175mcg qdaily --Demand ischemia 2/2 to sepsis picture --Transaminitis unchanged today --Likely 2/2 to medication use. Continue to trend --holding Lipitor and Tylenol right now --Appreciated all instructional design consultant recommendations FEN: Fluids - Diuresis Electrolyte abnormalities: Hyponatremia noted (continue trend; possibly 2/2 to loop diuretic use) Nutrition: Sodium controlled PPX: DVT - On warfarin, however INR just came to goal today GI - Ranitidine BID Dispo: Continue monitoring closely; possible JANICE today Case discussed with Dr. Orlando Levy, DO - IM PGY-3
--- NOTE | 2019-08-08 09:51 | PN ---
Progress Note (short form) - Note Progress Note: NEUROSURGERY LBP better overall. On vanco and zosyn per ID PE: Tmax 98.2, AF, VSS Drowsy, arousable HEENT- NC/AT; Neck- supple; Cor- Irreg; Chest- decreased BS at bases; Abd- benign; Ext- no sign of DVT CN- intact; Motor- 4+ B UE/LE except B IP 4/5 pain limited; Sensation- intact LT ; DTR- hyporeflexic WBC 14.5 Blood culture- MRSE; repeat blood culture + from 08-03, and 08-05 BC 2/2 MRSE l Urine Culture- E Coli head CT- moderate atrophy, no acute bleed or stroke CT Chest-abd: (focused on spine)- extensive spondylosis; L4-5 grade I-II spondhyl;olisthesis, L5-S1 DDD/narrowing, central though R > L L1-2 posterior bridging osteophytes with thecal sac impingement, no lytic lesion or obvious osteo Chronic lumbar spine pathology including L4-5 spondylolisthesis and L1-2 calcified disc/bridging osteophytes with resultant stenosis Pain likely secondary to ongoing bacteremia as there is no obvious evidence of acute discitis or osteo on CT Ongoing MRSE bateremia- ID f/u needed On lidoderm patch On Neurontin 100 mg tid for pain Mobilize/PT Baseline ESR/CRP DVT prophylaxis
[2019-08-08] MEDS: TIOTROPIUM BROMIDE 2.5 MCG (SPIRIVA) RESPIMAT INHALER IH SCH (10:00)
[2019-08-08] MEDS: DIGOXIN 0.125 MG TABLET (FP) PO SCH (10:00)
[2019-08-08] MEDS: MOMETASONE FUROATE 220 MCG/IH INHALER IH SCH ×2 (10:00→22:05)
[2019-08-08] MEDS: VANCOMYCIN 1 GRAM (PRE-DOCKED) 1,000 MG/250 ML BAG IVPB SCH (10:30)
[2019-08-08] MEDS: FUROSEMIDE 40 MG/4 ML INJECTABLE VIAL IVPUSH SCH (10:30)
--- NOTE | 2019-08-08 11:03 | PN ---
Progress Note, Physician History of Present Illness: PULMONARY LETHARGIC BUT AROUSABLE,-RESP DISTRESS - Current Medication List Current Medications: Active Medications Acetaminophen (Tylenol -) 650 mg PO Q6H PRN PRN Reason: Fever Or Pain Last Admin: 08/05/19 23:18 Dose: 650 mg Albuterol Sulfate (Ventolin Hfa Inhaler -) 1 puff IH Q4H PRN PRN Reason: ASTHMA Albuterol Sulfate (Ventolin Hfa Inhaler -) 2 puff IH Q4H PRN PRN Reason: ASTHMA Carvedilol (Coreg -) 6.25 mg PO BID COUNT INCLUDES [facility] Last Admin: 08/07/19 23:30 Dose: 6.25 mg Digoxin (Lanoxin -) 0.125 mg PO DAILY COUNT INCLUDES [facility] Last Admin: 08/07/19 09:16 Dose: 0.125 mg Diltiazem HCl (Cardizem Cd -) 240 mg PO BID COUNT INCLUDES [facility] Last Admin: 08/07/19 23:30 Dose: 240 mg Furosemide (Lasix Injection -) 40 mg IVPUSH DAILY COUNT [facility]CLUDES [facility] Last Admin: 08/08/19 10:30 Dose: 40 mg Gabapentin (Neurontin -) 100 mg PO TID COUNT [facility]CLUD[facility] Last Admin: 08/08/19 06:03 Dose: Not Given Piperacillin Sod/Tazobactam (Sod 3.375 gm/ Dextrose) 50 mls @ 100 mls/hr IVPB Q8H-IV COUNT [facility]CLUDES [facility]; Protocol Last Admin: 08/08/19 10:30 Dose: 100 mls/hr Vancomycin HCl (Vancomycin (Pre-Docked)) 1,000 mg in 250 mls @ 166.667 mls/hr IVPB BID COUNT [facility]CLUD[facility]; Protocol Last Admin: 08/08/19 10:30 Dose: 166.667 mls/hr Levothyroxine Sodium 150 mcg/ (Levothyroxine Sodium 25 mcg) 175 mcg PO DAILY@ 0700 COUNT [facility]CLUD[facility] Last Admin: 08/08/19 06:03 Dose: Not Given Lidocaine (Lidoderm Patch -) 1 patch TP DAILY COUNT [facility]CLUD[facility] Last Admin: 08/07/19 09:17 Dose: 1 patch Miscellaneous (Lidoderm Patch Removal) 1 each MC DAILY@2200 COUNT [facility]CLUD[facility] Last Admin: 08/07/19 23:30 Dose: Not Given Mometasone Furoate (Asmanex 220mcg -) 1 puff IH BID COUNT INCLUDES [facility] Last Admin: 08/07/19 23:37 Dose: 1 puff Pantoprazole Sodium (Protonix -) 40 mg PO DAILY COUNT [facility]CLUD[facility] Last Admin: 08/07/19 09:16 Dose: 40 mg Spironolactone (Aldactone -) 25 mg PO DAILY COUNT [facility]CLUD[facility] Last Admin: 08/07/19 09:16 Dose: 25 mg Tiotropium [place] (Spiriva Respimat) 2 puff IH DAILY COUNT INCLUDES [facility] Last Admin: 08/07/19 09:18 Dose: 2 puff - Objective Vital Signs: Vital Signs Temperature 97.6 F 08/08/19 06:00 Pulse Rate 54 L 08/08/19 06:00 Respiratory Rate 20 08/08/19 06:00 Blood Pressure 137/53 L 08/08/19 06:00 O2 Sat by Pulse Oximetry (%) 96 08/07/19 09:00 Constitutional: Yes: Well Nourished, Other (LETHARGIC) Eyes: Yes: WNL HENT: Yes: WNL Neck: Yes: WNL Cardiovascular: Yes: Pulse Irregular, S1, S2 Respiratory: Yes: Diminished, Other (POOR INSPIRATORY EFFORT) Gastrointestinal: Yes: Normal Bowel Sounds, Soft Extremities: Yes: WNL Edema: No Labs: CBC, BMP 08/08/19 06:00 08/08/19 06:00 INR, PTT INR 2.94 (0.83-1.09) H 08/08/19 06:00 Problem List - Problems (1) Acute on chronic diastolic (congestive) heart failure Code(s): I50.33 - ACUTE ON CHRONIC DIASTOLIC (CONGESTIVE) HEART FAILURE (2) Altered mental status Code(s): R41.82 - ALTERED MENTAL STATUS, UNSPECIFIED Qualifiers: Altered mental status type: disorientation Qualified Code(s): R41.0 - Disorientation, unspecified (3) Atrial fibrillation Code(s): I48.91 - UNSPECIFIED ATRIAL FIBRILLATION (4) Elevated troponin Code(s): R74.8 - ABNORMAL LEVELS OF OTHER SERUM ENZYMES (5) Sepsis Code(s): A41.9 - SEPSIS, UNSPECIFIED ORGANISM Qualifiers: Sepsis type: sepsis due to unspecified organism Sepsis acute organ dysfunction status: unspecified Qualified Code(s): A41.9 - Sepsis, unspecified organism (6) UTI (urinary tract infection) Code(s): N39.0 - URINARY TRACT INFECTION, SITE NOT SPECIFIED Qualifiers: Urinary tract infection type: site unspecified Hematuria presence: without hematuria Qualified Code(s): N39.0 - Urinary tract infection, site not specified (7) Atrial fibrillation Code(s): I48.91 - UNSPECIFIED ATRIAL FIBRILLATION Qualifiers: Atrial fibrillation type: chronic Qualified Code(s): I48.2 - Chronic atrial fibrillation (8) CAD (coronary artery disease), autologous vein bypass graft Code(s): I25.810 - ATHEROSCLEROSIS OF CABG W/O ANGINA PECTORIS Qualifiers: Associated angina: without angina Qualified Code(s): I25.810 - Atherosclerosis of coronary artery bypass graft(s) without angina pectoris (9) History of aortic valve replacement with bioprosthetic valve Code(s): Z95.4 - PRESENCE OF OTHER HEART-VALVE REPLACEMENT (10) History of mitral valve replacement with bioprosthetic valve Code(s): Z95.4 - PRESENCE OF OTHER HEART-VALVE REPLACEMENT (11) Hyperlipidemia Code(s): E78.5 - HYPERLIPIDEMIA, UNSPECIFIED Qualifiers: Hyperlipidemia type: unspecified Qualified Code(s): E78.5 - Hyperlipidemia , unspecified (12) Hypertension Code(s): I10 - ESSENTIAL (PRIMARY) HYPERTENSION Qualifiers: Hypertension type: essential hypertension Qualified Code(s): I10 - Essential (primary) hypertension (13) Hypothyroidism Code(s): E03.9 - HYPOTHYROIDISM, UNSPECIFIED Qualifiers: Hypothyroidism type: unspecified Qualified Code(s): E03.9 - Hypothyroidism , unspecified (14) Pleural effusion Code(s): J90 - PLEURAL EFFUSION, NOT ELSEWHERE CLASSIFIED Assessment/Plan Problem List - Problems (1) Acute on chronic diastolic (congestive) heart failure Code(s): I50.33 - ACUTE ON CHRONIC DIASTOLIC (CONGESTIVE) HEART FAILURE Assessment/Plan Acute on Chronic Diastolic Heart Failure UTI Gram Positive Bacteremia r/o Pneumonia Pleural Effusions Sepsis +Troponins likely Demand Ischemia Elevated LFTs CAD s/p CABG Atrial Fibrillation h/o AVR/MVR SSS s/p PPM COPD Hypothyroidism Back pain r/o Paraspinal abscess - antibiotics per ID - pleural effusions are likely from CHF but cannot rule out pneumonia given bacteremia - IV lasix - monitor urine output, creatinine - rate control - aspiration precautions - O2 to keep SpO2 >90% - DVT prophylaxis - JANICE - DR ANGELES
[2019-08-08] MEDS: CARVEDILOL 6.25 MG TABLET (FP) PO SCH ×2 (11:07→22:04)
[2019-08-08] MEDS: PANTOPRAZOLE 40 MG TABLET (FP) PO SCH (11:07)
[2019-08-08] MEDS: LIDOCAINE 5% TOPICAL PATCH TP SCH (11:08)
[2019-08-08] MEDS: SPIRONOLACTONE 25 MG TABLET (FP) PO SCH (11:08)
--- NOTE | 2019-08-08 11:12 | PN ---
Progress Note (short form) - Note Progress Note: 78-year-old female with history of coronary artery disease, status post CABG, history of bioprosthetic mitral and aortic valve replacement in 2015, maze procedure, status post permanent pacemaker for sick sinus syndrome, atrial fibrillation, hypertension, hypertensive cardiovascular disease, congestive heart failure, hypothyroidism.admitted with confusion and fever and is currently being treated for urinary sepsis and bacteremia Remains lethargic but easily arousable, waiting for a JANICE. ALLERGIES: None reported. Active Medications Acetaminophen (Tylenol -) 650 mg PO Q6H PRN PRN Reason: Fever Or Pain Last Admin: 08/05/19 23:18 Dose: 650 mg Albuterol Sulfate (Ventolin Hfa Inhaler -) 1 puff IH Q4H PRN PRN Reason: ASTHMA Albuterol Sulfate (Ventolin Hfa Inhaler -) 2 puff IH Q4H PRN PRN Reason: ASTHMA Carvedilol (Coreg -) 6.25 mg PO BID [facility] Last Admin: 08/08/19 11:07 Dose: 6.25 mg Digoxin (Lanoxin -) 0.125 mg PO DAILY [facility] Last Admin: 08/07/19 09:16 Dose: 0.125 mg Diltiazem HCl (Cardizem Cd -) 240 mg PO BID [facility] Last Admin: 08/07/19 23:30 Dose: 240 mg Furosemide (Lasix Injection -) 40 mg IVPUSH DAILY [facility] Last Admin: 08/08/19 10:30 Dose: 40 mg Gabapentin (Neurontin -) 100 mg PO TID [facility] Last Admin: 08/08/19 06:03 Dose: Not Given Piperacillin Sod/Tazobactam (Sod 3.375 gm/ Dextrose) 50 mls @ 100 mls/hr IVPB Q8H-IV [facility]; Protocol Last Admin: 08/08/19 10:30 Dose: 100 mls/hr Vancomycin HCl (Vancomycin (Pre-Docked)) 1,000 mg in 250 mls @ 166.667 mls/hr IVPB BID [facility]; Protocol Last Admin: 08/08/19 10:30 Dose: 166.667 mls/hr Levothyroxine Sodium 150 mcg/ (Levothyroxine Sodium 25 mcg) 175 mcg PO DAILY@ 0700 [facility] Last Admin: 08/08/19 06:03 Dose: Not Given Lidocaine (Lidoderm Patch -) 1 patch TP DAILY [facility] Last Admin: 08/08/19 11:08 Dose: 1 patch Miscellaneous (Lidoderm Patch Removal) 1 each MC DAILY@2200 [facility] Last Admin: 08/07/19 23:30 Dose: Not Given Mometasone Furoate (Asmanex 220mcg -) 1 puff IH BID [facility] Last Admin: 08/07/19 23:37 Dose: 1 puff Pantoprazole Sodium (Protonix -) 40 mg PO DAILY [facility] Last Admin: 08/08/19 11:07 Dose: 40 mg Spironolactone (Aldactone -) 25 mg PO DAILY [facility] Last Admin: 08/08/19 11:08 Dose: 25 mg Tiotropium [place] (Spiriva Respimat) 2 puff IH DAILY [facility] Last Admin: 08/07/19 09:18 Dose: 2 puff PHYSICAL EXAMINATION:General: 78-year-old female, lethargic, afebrile. Last Vital Signs Temp Pulse Resp BP Pulse Ox 97.6 F 54 irregular. 20 137/53 L 96 08/08/19 06:00 08/08/19 06:00 08/08/19 06:00 08/08/19 06:00 08/07/19 09:00 Neck: Supple, no jugular venous distention, carotids were 2+, upstrokes were normal, no bruits were heard and no thyromegaly was present. Heart: No heaves or thrills, S1 is variable, S2 was normal, ejection systolic murmur grade II/ was heard at the 2nd right intercostal space, decrescendo Grade II/ systolic murmur was heard at the apex, no diastolic murmur or gallops were heard. Lungs: Clear on auscultation. Abdomen: Soft, obese and nontender. No hepatosplenomegaly or palpable masses were felt. Extremities: No calf tenderness or dependent edema. Pulses were equal. CBC, BMP 08/08/19 06:00 08/08/19 06:00 IMPRESSION: 1. Mental confusion and agitation most likely related to toxic and/or metabolic encephalopathy. 2. Coronary artery disease, status post coronary artery bypass grafting. 3. Sepsis/bacteremia. 4. Sick sinus syndrome. Status post permanent pacemaker. 5. Status post bioprosthetic mitral valve replacement. 6. Status post bioprosthetic aortic valve replacement. 7. History of congestive heart failure. 8. Hypertension, hypertensive cardiovascular disease. 9. Acute on chronic left ventricular diastolic dysfunction. 10. Permanent atrial fibrillation. 11. Carotid artery disease. 12. History of bronchial asthma. 13. Hypercholesterolemia. 14. Status post maze procedure. 15. Hypothyroidism, on replacement therapy. RECOMMENDATIONS: 1. Continue with current line of cardiac therapy. 2. awaiting JANICE. Prognosis: Critical. KESHA CHIN M.D.
--- NOTE | 2019-08-08 11:32 | PN ---
Teaching Attending Note Name of Resident: Abram Levy ATTENDING PHYSICIAN STATEMENT I saw and evaluated the patient. I reviewed the resident's note and discussed the case with the resident. I agree with the resident's findings and plan as documented with exceptions below. SUBJECTIVE: Patient seen and examined. weak looking, ongoing low back pain, minimal participation, no complaints otherwise, but limited ROS. OBJECTIVE: Vital Signs Period Temp Pulse Resp BP Sys/Agudelo Pulse Ox Last 24 Hr 97.6 F-98.9 F 54-70 16-20 119-139/53-79 Intake & Output 08/05/19 08/06/19 08/07/19 08/08/19 23:59 23:59 23:59 23:59 Intake Total 1760 1000 650 300 Output Total 300 2700 1500 Balance 1460 -1700 -850 300 Weight 199 lb 8 oz 199 lb 3.2 oz 198 lb 11.2 oz General: lethargic, no use of accessory muscles of respiration Neck; Soft, supple Chest; Decreased breath sounds at bases, poor effort, few scattered rales Abdomen;Soft, obese, NT extremities: no pedal edema Musculoskeletal: SLR upto 10 degrees R<L, limited by back pain, no point tenderness, limited exam Active Medications Acetaminophen (Tylenol -) 650 mg PO Q6H PRN PRN Reason: Fever Or Pain Last Admin: 08/05/19 23:18 Dose: 650 mg Albuterol Sulfate (Ventolin Hfa Inhaler -) 1 puff IH Q4H PRN PRN Reason: ASTHMA Albuterol Sulfate (Ventolin Hfa Inhaler -) 2 puff IH Q4H PRN PRN Reason: ASTHMA Carvedilol (Coreg -) 6.25 mg PO BID [facility] Last Admin: 08/08/19 11:07 Dose: 6.25 mg Digoxin (Lanoxin -) 0.125 mg PO DAILY [facility] Last Admin: 08/07/19 09:16 Dose: 0.125 mg Diltiazem HCl (Cardizem Cd -) 240 mg PO BID [facility] Last Admin: 08/07/19 23:30 Dose: 240 mg Furosemide (Lasix Injection -) 40 mg IVPUSH DAILY [facility] Last Admin: 08/08/19 10:30 Dose: 40 mg Gabapentin (Neurontin -) 100 mg PO TID [facility] Last Admin: 08/08/19 06:03 Dose: Not Given Piperacillin Sod/Tazobactam (Sod 3.375 gm/ Dextrose) 50 mls @ 100 mls/hr IVPB Q8H-IV [facility]; Protocol Last Admin: 08/08/19 10:30 Dose: 100 mls/hr Vancomycin HCl (Vancomycin (Pre-Docked)) 1,000 mg in 250 mls @ 166.667 mls/hr IVPB BID [facility]; Protocol Last Admin: 08/08/19 10:30 Dose: 166.667 mls/hr Levothyroxine Sodium 150 mcg/ (Levothyroxine Sodium 25 mcg) 175 mcg PO DAILY@ 0700 [facility] Last Admin: 08/08/19 06:03 Dose: Not Given Lidocaine (Lidoderm Patch -) 1 patch TP DAILY [facility] Last Admin: 08/08/19 11:08 Dose: 1 patch Miscellaneous (Lidoderm Patch Removal) 1 each MC DAILY@2200 [facility] Last Admin: 08/07/19 23:30 Dose: Not Given Mometasone Furoate (Asmanex 220mcg -) 1 puff IH BID [facility] Last Admin: 08/07/19 23:37 Dose: 1 puff Pantoprazole Sodium (Protonix -) 40 mg PO DAILY [facility] Last Admin: 08/08/19 11:07 Dose: 40 mg Spironolactone (Aldactone -) 25 mg PO DAILY [facility] Last Admin: 08/08/19 11:08 Dose: 25 mg Tiotropium [place] (Spiriva Respimat) 2 puff IH DAILY [facility] Last Admin: 08/07/19 09:18 Dose: 2 puff Laboratory Results - last 24 hr 08/07/19 08/08/19 08/08/19 21:10 06:00 06:00 WBC 15.5 H RBC 4.20 Hgb 12.6 Hct 37.0 MCV 88.2 MCH 29.9 MCHC 33.9 RDW 15.8 H Plt Count 160 MPV 8.8 Absolute Neuts (auto) 14.0 H Neutrophils % 90.7 H Lymphocytes % 3.3 L D Monocytes % 5.4 Eosinophils % 0.2 Basophils % 0.4 Nucleated RBC % 0 PT with INR 35.10 H INR 2.94 H Sodium Potassium Chloride Carbon Dioxide Anion Gap BUN Creatinine Est GFR (CKD-EPI)AfAm Est GFR (CKD-EPI)NonAf Random Glucose Calcium Phosphorus Magnesium Total Bilirubin Direct Bilirubin AST ALT Alkaline Phosphatase C-Reactive Protein Total Protein Albumin Vancomycin Pre-Dose 25.3 08/08/19 06:00 WBC RBC Hgb Hct MCV MCH MCHC RDW Plt Count MPV Absolute Neuts (auto) Neutrophils % Lymphocytes % Monocytes % Eosinophils % Basophils % Nucleated RBC % PT with INR INR Sodium 131 L Potassium 3.9 Chloride 96 L Carbon Dioxide 24 Anion Gap 10 BUN 24.0 H Creatinine 1.0 Est GFR (CKD-EPI)AfAm 62.05 Est GFR (CKD-EPI)NonAf 53.54 Random Glucose 97 Calcium 8.0 L Phosphorus 3.2 Magnesium 1.9 Total Bilirubin 0.7 Direct Bilirubin 0.4 H AST 56 H ALT 74 H Alkaline Phosphatase 193 H C-Reactive Protein 9.6 H Total Protein 6.1 L Albumin 1.8 L Vancomycin Pre-Dose Microbiology 08/05/19 14:30 Blood - Peripheral Venous Blood Culture - Preliminary Staphylococcus Coagulase Neg 08/05/19 14:30 Blood - Peripheral Venous Blood Culture - Preliminary Staphylococcus Coagulase Neg 08/03/19 12:15 Blood - Peripheral Venous Blood Culture - Final Staphylococcus Epidermidis 08/03/19 12:07 Blood - Peripheral Venous Blood Culture - Final Staphylococcus Epidermidis 08/01/19 11:58 Blood - Peripheral Venous Blood Culture - Final Staphylococcus Epidermidis 08/01/19 11:58 Blood - Peripheral Venous Blood Culture - Final Staphylococcus Epidermidis 08/01/19 11:38 Urine - Urine Clean Catch Urine Culture - Final Escherichia Coli Diphtheroid/Corynebacterium ASSESSMENT AND PLAN: 78 yof with PMHx of coronary artery disease, status post CABG, history of bioprosthetic mitral and aortic valve replacement in 2014, maze procedure, status post permanent pacemaker for sick sinus syndrome, atrial fibrillation, hypertension, hypertensive cardiovascular disease, HFpEF, hypothyroidism admitted with AMS, found with UTI/bacteremia. -Persistent MRSE bacteremia -Sepsis -Acute hypoxic respiratory failure -Acute Diastolic heart failure exacerbation, in the setting of volume resuscitation +/- sepsis -r//o ARDS -Suspected bibasilar PNA -Bilateral pleural effusions, from above -Complicated E. Coli UTI -AMS suspect toxic metabolic encephalopathy from above -Elevated troponin, suspect demand mediated Type II NSTEMI from above -Low back pain -Abnormal LFTs, ?unlikely GB etiology, vs sepsis related -Afib s/p PPM -Bioprosthetic AVR/MVR -COPD -HLD Plan: 3rd set of blood cx pos CT spine with contrast prelim read neg for abscess or acute concerns, spinal stenosis/Degenerative disease. Unable to get MRI given PPM Neurosurgery/ID input noted. Vanco level noted, discuss with ID to taper to 750 mg BID and add double coverage. TTE results noted. For JANICE today. Cardiology input noted. IV lasix with close volume status and renal function monitoring. ABG noted. Respi effort improved. Bipap prn. Pulmonary input noted. CT chest/A/P results noted GI input noted. LFTs improved. Off IVF. Trop trended down. Cardiology input noted. Continue coreg/digoxin/diltiazem/spironolactone as hemodynamics tolerate. Coumadin per INR dosing. Therapeutic today, Hold resumption in case needs surgical intervention/Thoracocentesis. Will bridge with heparin when subtherapeutic. Nebs prn, spiriva PT eval, OOB. DVTPPX coumadin as above. Dispo close hemodynamic monitoring, escalation of care/ICU based on clinical course. Discussed with patient and nursing.
--- NOTE | 2019-08-08 13:18 | PN ---
Progress Note, Physician History of Present Illness: very weak intermittent confusion blood cx still positive - Current Medication List Current Medications: Active Medications Acetaminophen (Tylenol -) 650 mg PO Q6H PRN PRN Reason: Fever Or Pain Last Admin: 08/05/19 23:18 Dose: 650 mg Albuterol Sulfate (Ventolin Hfa Inhaler -) 1 puff IH Q4H PRN PRN Reason: ASTHMA Albuterol Sulfate (Ventolin Hfa Inhaler -) 2 puff IH Q4H PRN PRN Reason: ASTHMA Carvedilol (Coreg -) 6.25 mg PO BID [facility] Last Admin: 08/08/19 11:07 Dose: 6.25 mg Digoxin (Lanoxin -) 0.125 mg PO DAILY [facility] Last Admin: 08/08/19 10:00 Dose: Not Given Diltiazem HCl (Cardizem Cd -) 240 mg PO BID [facility] Last Admin: 08/08/19 10:00 Dose: Not Given Furosemide (Lasix Injection -) 40 mg IVPUSH DAILY [facility] Last Admin: 08/08/19 10:30 Dose: 40 mg Gabapentin (Neurontin -) 100 mg PO TID [facility] Last Admin: 08/08/19 06:03 Dose: Not Given Piperacillin Sod/Tazobactam (Sod 3.375 gm/ Dextrose) 50 mls @ 100 mls/hr IVPB Q8H-IV [facility]; Protocol Last Admin: 08/08/19 10:30 Dose: 100 mls/hr Vancomycin HCl (Vancomycin (Pre-Docked)) 1,000 mg in 250 mls @ 166.667 mls/hr IVPB BID [facility]; Protocol Last Admin: 08/08/19 10:30 Dose: 166.667 mls/hr Levothyroxine Sodium 150 mcg/ (Levothyroxine Sodium 25 mcg) 175 mcg PO DAILY@ 0700 [facility] Last Admin: 08/08/19 06:03 Dose: Not Given Lidocaine (Lidoderm Patch -) 1 patch TP DAILY [facility] Last Admin: 08/08/19 11:08 Dose: 1 patch Miscellaneous (Lidoderm Patch Removal) 1 each MC DAILY@2200 [facility] Last Admin: 08/07/19 23:30 Dose: Not Given Mometasone Furoate (Asmanex 220mcg -) 1 puff IH BID [facility] Last Admin: 08/08/19 10:00 Dose: 1 puff Pantoprazole Sodium (Protonix -) 40 mg PO DAILY [facility] Last Admin: 08/08/19 11:07 Dose: 40 mg Spironolactone (Aldactone -) 25 mg PO DAILY [facility] Last Admin: 08/08/19 11:08 Dose: 25 mg Tiotropium [place] (Spiriva Respimat) 2 puff IH DAILY [facility] Last Admin: 08/08/19 10:00 Dose: 2 puff - Objective Vital Signs: Vital Signs Temperature 98.8 F 08/08/19 10:00 Pulse Rate 59 L 08/08/19 10:00 Respiratory Rate 18 08/08/19 10:00 Blood Pressure 131/76 08/08/19 10:00 O2 Sat by Pulse Oximetry (%) 96 08/08/19 09:00 Constitutional: Yes: Other Cardiovascular: Yes: S1, S2 Respiratory: Yes: Regular, CTA Bilaterally Gastrointestinal: Yes: Normal Bowel Sounds, Soft Musculoskeletal: Yes: WNL Extremities: Yes: Other Neurological: Yes: Alert Psychiatric: Yes: Other Labs: CBC, BMP 08/08/19 06:00 08/08/19 06:00 INR, PTT INR 2.94 (0.83-1.09) H 08/08/19 06:00 Assessment/Plan A/P Acute Metabolic Encephalopathy Transaminitis with elevated Alk phos COPD SSS s/p PPM placement Atrial fibrillation Hypothyroidism uti gm positive bacteremia plan will recheck blood cx continue abx nutrition clsoe watch rest as per the team
[2019-08-08] MEDS ORDERED: cefTRIAXone SODIUM 1 GM VIAL ONE (14:35)
[2019-08-08] MEDS: CEFTRIAXONE 1 GM in DEXTROSE 5%-WATER - 50 ML IVPB SCH (14:40)
[2019-08-08] MEDS: DAPTOMYCIN 700 MG in SODIUM CHLORIDE 100 ML IVPB SCH (17:03)
[2019-08-08] MEDS: LIDOCAINE PATCH REMOVAL MC SCH (22:00)
[2019-08-08] MEDS: ACETAMINOPHEN 325 MG TABLET (FP) PO PRN (22:04)
[2019-08-09] MEDS: GABAPENTIN 100 MG CAPSULE (FP) PO SCH ×3 (06:34→22:00)
[2019-08-09] MEDS: LEVOTHYROXINE 150 MCG, LEVOTHYROXINE 25 MCG PO SCH (06:34)
[2019-08-09 07:08] LABS: BASO % 0.4 % (0-2.0); EOS % 0.3 % (0-4.5); HEMATOCRIT 37.4 % (32.4-45.2); HEMOGLOBIN 12.7 GM/dL (10.7-15.3); MCH 29.7 pg (25.7-33.7); MCHC 33.8 g/dl (32.0-36.0); MEAN CELL VOLUME 87.6 fl (80-96); MEAN PLT VOLUME 8.5 fl (7.5-11.1); MONO % 5.6 % (3.8-10.2); NEUT % 89.7 % (42.8-82.8); PLATELET COUNT 163 K/MM3 (134-434); RBC 4.27 M/mm3 (3.60-5.2); RDW 16.1 % (11.6-15.6); WHITE BLOOD COUNT 13.8 K/mm3 (4.0-10.0)
[2019-08-09 07:18] LABS: INR 2.54 (0.83-1.09); PROTHROMBIN TIME (PATIENT) 30.3 SEC (9.7-13.0)
[2019-08-09 07:49] LABS: ALBUMIN 1.8 g/dl (3.4-5.0); BILIRUBIN,DIRECT 0.5 mg/dL (0.0-0.2); BILIRUBIN,TOTAL 0.8 mg/dL (0.2-1); BLOOD UREA NITROGEN 25.6 mg/dL (7-18); CALCIUM 8.3 mg/dL (8.5-10.1); CREATININE 0.9 mg/dL (0.55-1.3); MAGNESIUM 1.9 mg/dL (1.8-2.4); POTASSIUM 3.5 mmol/L (3.5-5.1); TOT PROT 6.3 g/dl (6.4-8.2)
--- NOTE | 2019-08-09 08:04 | PN ---
Progress Note (short form) - Note Progress Note: NEUROSURGERY LBP better overall. On daptomycin and ceftriaxone per ID PE: Tmax 100.7, afebrile now, VSS More awake, some LBP HEENT- NC/AT; Neck- supple; Cor- Irreg; Chest- decreased BS at bases; Abd- benign; Ext- no sign of DVT CN- intact; Motor- 4+ B UE/LE except B IP 4/5 pain limited; Sensation- intact LT ; DTR- hyporeflexic ESR 79, CRP 9.6; WBC 13.8 Blood culture- MRSE; repeat blood culture + from 08-03, and 08-05 BC 2/2 MRSE l, repeat from 08-08 drawn Chronic lumbar spine pathology including L4-5 spondylolisthesis and L1-2 calcified disc/bridging osteophytes with resultant stenosis Ongoing MRSE bateremia- ID f/u and tx On lidoderm patch On Neurontin 100 mg tid for pain Mobilize/PT/OOB DVT prophylaxis
--- NOTE | 2019-08-09 08:45 | PN ---
Teaching Attending Note Name of Resident: Abram Levy ATTENDING PHYSICIAN STATEMENT I saw and evaluated the patient. I reviewed the resident's note and discussed the case with the resident. I agree with the resident's findings and plan as documented with exceptions below. SUBJECTIVE: Patient seen and examined. pain better, weak, but limited participation, no complaints. OBJECTIVE: Vital Signs Period Temp Pulse Resp BP Sys/Agudelo Pulse Ox Last 24 Hr 97.4 F-100.7 F 53-66 18-18 110-136/57-76 96-97 Intake & Output 08/06/19 08/07/19 08/08/19 08/09/19 23:59 23:59 23:59 23:59 Intake Total 1000 650 470 40 Output Total 2700 1500 600 Balance -1700 -850 -130 40 Weight 199 lb 3.2 oz 198 lb 11.2 oz 193 lb 9.6 oz General: lethargic, no use of accessory muscles of respiration Neck; Soft, supple Chest; Decreased breath sounds at bases, poor effort, few scattered rales Abdomen;Soft, obese, NT extremities: no pedal edema Musculoskeletal: SLR with some improvement, no point tenderness Home Medications Medication Instructions Recorded Albuterol Sulfate [Proair Hfa -] 1 - 2 inh PO PRN PRN 05/28/12 Cholecalciferol (Vitamin D3) 1,000 unit PO DAILY 05/28/12 [Vitamin D] Digoxin [Lanoxin -] 0.125 mg PO DAILY 05/28/12 Furosemide [Lasix -] 40 mg PO DAILY 05/28/12 Levothyroxine [Synthroid -] 175 mcg PO DAILY 05/28/12 Multivits W-Fe,Other Min/Lut 1 each PO DAILY 05/28/12 [Centrum Silver Ultra Women Tab] Atorvastatin Calcium [Lipitor] 10 mg PO HS 06/24/13 Ranitidine HCl [Zantac] 150 mg PO BID 06/24/13 Acetaminophen [Tylenol] 650 mg PO PRN PRN 08/19/15 Potassium Chloride [Klor-Con M20] 20 meq PO BID 08/19/15 Diltiazem Cd [Cardizem Cd -] 240 mg PO BID #60 cap.cd.24h 09/07/15 Spironolactone [Aldactone -] 25 mg PO DAILY #30 tablet 01/28/17 Carvedilol 6.25 mg PO BID 05/20/19 Umeclidinium [place] [Incruse 62.5 mcg IH DAILY 05/26/19 Ellipta] Beclomethasone Dipropionate [Qvar] 8.7 gm IH BID 06/03/19 Nitroglycerin Sublingual 0.6 mg SL DAILY PRN 06/03/19 [Nitrostat -] Active Medications Acetaminophen (Tylenol -) 650 mg PO Q6H PRN PRN Reason: Fever Or Pain Last Admin: 08/08/19 22:04 Dose: 650 mg Albuterol Sulfate (Ventolin Hfa Inhaler -) 1 puff IH Q4H PRN PRN Reason: ASTHMA Albuterol Sulfate (Ventolin Hfa Inhaler -) 2 puff IH Q4H PRN PRN Reason: ASTHMA Carvedilol (Coreg -) 6.25 mg PO BID [facility] Last Admin: 08/08/19 22:04 Dose: 6.25 mg Digoxin (Lanoxin -) 0.125 mg PO DAILY [facility] Last Admin: 08/08/19 10:00 Dose: Not Given Diltiazem HCl (Cardizem Cd -) 240 mg PO BID [facility] Last Admin: 08/08/19 23:35 Dose: Not Given Furosemide (Lasix Injection -) 40 mg IVPUSH DAILY [facility] Last Admin: 08/08/19 10:30 Dose: 40 mg Gabapentin (Neurontin -) 100 mg PO TID [facility] Last Admin: 08/09/19 06:34 Dose: Not Given Ceftriaxone Sodium 1 gm/ (Dextrose) 50 mls @ 100 mls/hr IVPB DAILY [facility]; Protocol Last Admin: 08/08/19 14:40 Dose: 100 mls/hr Daptomycin 700 mg/ Sodium (Chloride) 100 mls @ 100 mls/hr IVPB Q24H [facility] Last Admin: 08/08/19 17:03 Dose: 100 mls/hr Levothyroxine Sodium 150 mcg/ (Levothyroxine Sodium 25 mcg) 175 mcg PO DAILY@ 0700 [facility] Last Admin: 08/09/19 06:34 Dose: Not Given Lidocaine (Lidoderm Patch -) 1 patch TP DAILY [facility] Last Admin: 08/08/19 11:08 Dose: 1 patch Miscellaneous (Lidoderm Patch Removal) 1 each MC DAILY@2200 [facility] Last Admin: 08/08/19 22:00 Dose: 1 each Mometasone Furoate (Asmanex 220mcg -) 1 puff IH BID [facility] Last Admin: 08/08/19 22:05 Dose: 1 puff Pantoprazole Sodium (Protonix -) 40 mg PO DAILY [facility] Last Admin: 08/08/19 11:07 Dose: 40 mg Spironolactone (Aldactone -) 25 mg PO DAILY [facility] Last Admin: 08/08/19 11:08 Dose: 25 mg Tiotropium [place] (Spiriva Respimat) 2 puff IH DAILY [facility] Last Admin: 08/08/19 10:00 Dose: 2 puff Laboratory Results - last 24 hr 08/08/19 08/08/19 08/09/19 06:00 11:44 06:40 WBC 13.8 H RBC 4.27 Hgb 12.7 Hct 37.4 MCV 87.6 MCH 29.7 MCHC 33.8 RDW 16.1 H Plt Count 163 MPV 8.5 Absolute Neuts (auto) 12.4 H Neutrophils % 89.7 H Lymphocytes % 4.0 L D Monocytes % 5.6 Eosinophils % 0.3 Basophils % 0.4 Nucleated RBC % 0 ESR 79 H PT with INR INR Sodium 131 L Potassium 3.9 Chloride 96 L Carbon Dioxide 24 Anion Gap 10 BUN 24.0 H Creatinine 1.0 Est GFR (CKD-EPI)AfAm 62.05 Est GFR (CKD-EPI)NonAf 53.54 Random Glucose 97 Calcium 8.0 L Phosphorus 3.2 Magnesium 1.9 Total Bilirubin 0.7 Direct Bilirubin 0.4 H AST 56 H ALT 74 H Alkaline Phosphatase 193 H C-Reactive Protein 9.6 H Total Protein 6.1 L Albumin 1.8 L 08/09/19 08/09/19 06:40 06:40 WBC RBC Hgb Hct MCV MCH MCHC RDW Plt Count MPV Absolute Neuts (auto) Neutrophils % Lymphocytes % Monocytes % Eosinophils % Basophils % Nucleated RBC % ESR PT with INR 30.30 H INR 2.54 H Sodium 133 L Potassium 3.5 Chloride 97 L Carbon Dioxide 26 Anion Gap 10 BUN 25.6 H Creatinine 0.9 Est GFR (CKD-EPI)AfAm 70.48 Est GFR (CKD-EPI)NonAf 60.81 Random Glucose 103 Calcium 8.3 L Phosphorus 3.0 Magnesium 1.9 Total Bilirubin 0.8 Direct Bilirubin 0.5 H AST 55 H ALT 75 H Alkaline Phosphatase 232 H C-Reactive Protein Total Protein 6.3 L Albumin 1.8 L Microbiology 08/05/19 14:30 Blood - Peripheral Venous Blood Culture - Preliminary Staphylococcus Coagulase Neg 08/05/19 14:30 Blood - Peripheral Venous Blood Culture - Preliminary Staphylococcus Coagulase Neg 08/03/19 12:15 Blood - Peripheral Venous Blood Culture - Final Staphylococcus Epidermidis 08/03/19 12:07 Blood - Peripheral Venous Blood Culture - Final Staphylococcus Epidermidis 08/01/19 11:58 Blood - Peripheral Venous Blood Culture - Final Staphylococcus Epidermidis 08/01/19 11:58 Blood - Peripheral Venous Blood Culture - Final Staphylococcus Epidermidis 08/01/19 11:38 Urine - Urine Clean Catch Urine Culture - Final Escherichia Coli Diphtheroid/Corynebacterium ASSESSMENT AND PLAN: 78 yof with PMHx of coronary artery disease, status post CABG, history of bioprosthetic mitral and aortic valve replacement in 2014, maze procedure, status post permanent pacemaker for sick sinus syndrome, atrial fibrillation, hypertension, hypertensive cardiovascular disease, HFpEF, hypothyroidism admitted with AMS, found with UTI/bacteremia. -Persistent MRSE bacteremia -Sepsis -Acute hypoxic respiratory failure -Acute Diastolic heart failure exacerbation, in the setting of volume resuscitation +/- sepsis -r//o ARDS -Suspected bibasilar PNA -Bilateral pleural effusions, from above -Complicated E. Coli UTI -AMS suspect toxic metabolic encephalopathy from above -Elevated troponin, suspect demand mediated Type II NSTEMI from above -Low back pain -Abnormal LFTs, ?unlikely GB etiology, vs sepsis related -Afib s/p PPM -Bioprosthetic AVR/MVR -COPD -HLD Plan: 3 sets of blood cx pos so far. Daily blood cx Discussed with ID, changed to daptomycin. Ceftriaxone for E. Coli UTI. CT chest/A/p/ and spine with contrast neg for acute concerns. Unable to get MRI given PPM Neurosurgery input noted. TTE noted, for JANICE today. Cardiology input noted. IV lasix with close volume status and renal function monitoring. ABG noted. Respi effort improved. Bipap prn. Pulmonary input noted. GI input noted. LFTs improved. Off IVF. Trop trended down. Cardiology input noted. Continue coreg/digoxin/diltiazem/spironolactone as hemodynamics tolerate. Coumadin per INR dosing. Therapeutic today, Hold resumption in case needs surgical intervention/Thoracocentesis and pending JANICE. Will bridge with lovenox as needed in the interim. Nebs prn, spiriva PT eval, OOB when clinically improved. Replete K, given on lasix. DVTPPX coumadin as above. Dispo close hemodynamic monitoring, escalation of care/ICU based on clinical course. Discussed with patient and nursing.
[2019-08-09] MEDS ORDERED: POTASSIUM CHLORIDE TABS 20 MEQ TABLET.ER (FP) PO ONE ×2 (08:47→09:15)
[2019-08-09] MEDS ORDERED: cefTRIAXone SODIUM 1 GM VIAL ONE (09:09)
[2019-08-09] MEDS ORDERED: DEXTROSE 5%-WATER - 50 ML IVPB ONE (09:09)
[2019-08-09] MEDS ORDERED: PT OWN MED DRAWER 7, Y5N ONE ×2 (09:10→16:19)
[2019-08-09] MEDS: CEFTRIAXONE 1 GM in DEXTROSE 5%-WATER - 50 ML IVPB SCH (09:42)
[2019-08-09] MEDS: FUROSEMIDE 40 MG/4 ML INJECTABLE VIAL IVPUSH SCH (10:00)
[2019-08-09] MEDS: TIOTROPIUM BROMIDE 2.5 MCG (SPIRIVA) RESPIMAT INHALER IH SCH (11:09)
[2019-08-09] MEDS: MOMETASONE FUROATE 220 MCG/IH INHALER IH SCH ×2 (11:10→22:00)
--- NOTE | 2019-08-09 11:13 | PN ---
Progress Note, Physician History of Present Illness: pulmonary more awake today,tmax 100.7,for JANICE today - Current Medication List Current Medications: Active Medications Acetaminophen (Tylenol -) 650 mg PO Q6H PRN PRN Reason: Fever Or Pain Last Admin: 08/08/19 22:04 Dose: 650 mg Albuterol Sulfate (Ventolin Hfa Inhaler -) 1 puff IH Q4H PRN PRN Reason: ASTHMA Albuterol Sulfate (Ventolin Hfa Inhaler -) 2 puff IH Q4H PRN PRN Reason: ASTHMA Carvedilol (Coreg -) 6.25 mg PO BID [facility] Last Admin: 08/08/19 22:04 Dose: 6.25 mg Digoxin (Lanoxin -) 0.125 mg PO DAILY [facility] Last Admin: 08/08/19 10:00 Dose: Not Given Diltiazem HCl (Cardizem Cd -) 240 mg PO BID [facility] Last Admin: 08/08/19 23:35 Dose: Not Given Furosemide (Lasix Injection -) 40 mg IVPUSH DAILY [facility] Last Admin: 08/08/19 10:30 Dose: 40 mg Gabapentin (Neurontin -) 100 mg PO TID [facility] Last Admin: 08/09/19 06:34 Dose: Not Given Ceftriaxone Sodium 1 gm/ (Dextrose) 50 mls @ 100 mls/hr IVPB DAILY [facility]; Protocol Last Admin: 08/09/19 09:42 Dose: 100 mls/hr Daptomycin 700 mg/ Sodium (Chloride) 100 mls @ 100 mls/hr IVPB Q24H [facility] Last Admin: 08/08/19 17:03 Dose: 100 mls/hr Levothyroxine Sodium 150 mcg/ (Levothyroxine Sodium 25 mcg) 175 mcg PO DAILY@ 0700 [facility] Last Admin: 08/09/19 06:34 Dose: Not Given Lidocaine (Lidoderm Patch -) 1 patch TP DAILY [facility] Last Admin: 08/08/19 11:08 Dose: 1 patch Miscellaneous (Lidoderm Patch Removal) 1 each MC DAILY@2200 [facility] Last Admin: 08/08/19 22:00 Dose: 1 each Mometasone Furoate (Asmanex 220mcg -) 1 puff IH BID [facility] Last Admin: 08/08/19 22:05 Dose: 1 puff Pantoprazole Sodium (Protonix -) 40 mg PO DAILY [facility] Last Admin: 08/08/19 11:07 Dose: 40 mg Spironolactone (Aldactone -) 25 mg PO DAILY [facility] Last Admin: 08/08/19 11:08 Dose: 25 mg Tiotropium [place] (Spiriva Respimat) 2 puff IH DAILY [facility] Last Admin: 08/08/19 10:00 Dose: 2 puff - Objective Vital Signs: Vital Signs Temperature 98.0 F 08/09/19 06:00 Pulse Rate 66 08/09/19 06:00 Respiratory Rate 18 08/09/19 06:00 Blood Pressure 110/65 08/09/19 06:00 O2 Sat by Pulse Oximetry (%) 97 08/08/19 20:43 Constitutional: Yes: Well Nourished, Calm Eyes: Yes: WNL HENT: Yes: WNL Neck: Yes: WNL Cardiovascular: Yes: Pulse Irregular, S1, S2 Respiratory: Yes: Diminished Gastrointestinal: Yes: Normal Bowel Sounds, Soft Extremities: Yes: WNL Edema: No Labs: CBC, BMP 08/09/19 06:40 08/09/19 06:40 INR, PTT INR 2.54 (0.83-1.09) H 08/09/19 06:40 Problem List - Problems (1) Acute on chronic diastolic (congestive) heart failure Code(s): I50.33 - ACUTE ON CHRONIC DIASTOLIC (CONGESTIVE) HEART FAILURE (2) Altered mental status Code(s): R41.82 - ALTERED MENTAL STATUS, UNSPECIFIED Qualifiers: Altered mental status type: disorientation Qualified Code(s): R41.0 - Disorientation, unspecified (3) Atrial fibrillation Code(s): I48.91 - UNSPECIFIED ATRIAL FIBRILLATION (4) Elevated troponin Code(s): R74.8 - ABNORMAL LEVELS OF OTHER SERUM ENZYMES (5) Sepsis Code(s): A41.9 - SEPSIS, UNSPECIFIED ORGANISM Qualifiers: Sepsis type: sepsis due to unspecified organism Sepsis acute organ dysfunction status: unspecified Qualified Code(s): A41.9 - Sepsis, unspecified organism (6) UTI (urinary tract infection) Code(s): N39.0 - URINARY TRACT INFECTION, SITE NOT SPECIFIED Qualifiers: Urinary tract infection type: site unspecified Hematuria presence: without hematuria Qualified Code(s): N39.0 - Urinary tract infection, site not specified (7) Atrial fibrillation Code(s): I48.91 - UNSPECIFIED ATRIAL FIBRILLATION Qualifiers: Atrial fibrillation type: chronic Qualified Code(s): I48.2 - Chronic atrial fibrillation (8) CAD (coronary artery disease), autologous vein bypass graft Code(s): I25.810 - ATHEROSCLEROSIS OF CABG W/O ANGINA PECTORIS Qualifiers: Associated angina: without angina Qualified Code(s): I25.810 - Atherosclerosis of coronary artery bypass graft(s) without angina pectoris (9) History of aortic valve replacement with bioprosthetic valve Code(s): Z95.4 - PRESENCE OF OTHER HEART-VALVE REPLACEMENT (10) History of mitral valve replacement with bioprosthetic valve Code(s): Z95.4 - PRESENCE OF OTHER HEART-VALVE REPLACEMENT (11) Hyperlipidemia Code(s): E78.5 - HYPERLIPIDEMIA, UNSPECIFIED Qualifiers: Hyperlipidemia type: unspecified Qualified Code(s): E78.5 - Hyperlipidemia , unspecified (12) Hypertension Code(s): I10 - ESSENTIAL (PRIMARY) HYPERTENSION Qualifiers: Hypertension type: essential hypertension Qualified Code(s): I10 - Essential (primary) hypertension (13) Hypothyroidism Code(s): E03.9 - HYPOTHYROIDISM, UNSPECIFIED Qualifiers: Hypothyroidism type: unspecified Qualified Code(s): E03.9 - Hypothyroidism , unspecified (14) Pleural effusion Code(s): J90 - PLEURAL EFFUSION, NOT ELSEWHERE CLASSIFIED Assessment/Plan Problem List - Problems (1) Acute on chronic diastolic (congestive) heart failure Code(s): I50.33 - ACUTE ON CHRONIC DIASTOLIC (CONGESTIVE) HEART FAILURE Assessment/Plan Acute on Chronic Diastolic Heart Failure UTI Gram Positive Bacteremia r/o Pneumonia Pleural Effusions Sepsis +Troponins likely Demand Ischemia Elevated LFTs CAD s/p CABG Atrial Fibrillation h/o AVR/MVR SSS s/p PPM COPD Hypothyroidism Back pain r/o Paraspinal abscess - antibiotics per ID - pleural effusions are likely from CHF but cannot rule out pneumonia given bacteremia - IV lasix - monitor urine output, creatinine - rate control - aspiration precautions - O2 to keep SpO2 >90% - DVT prophylaxis - JANICE today DR ANGELES
--- NOTE | 2019-08-09 11:58 | PN ---
Progress Note, Physician History of Present Illness: had one low grade fever wbc trending down going for bright mentally more awake and alert - Current Medication List Current Medications: Active Medications Acetaminophen (Tylenol -) 650 mg PO Q6H PRN PRN Reason: Fever Or Pain Last Admin: 08/08/19 22:04 Dose: 650 mg Albuterol Sulfate (Ventolin Hfa Inhaler -) 1 puff IH Q4H PRN PRN Reason: ASTHMA Albuterol Sulfate (Ventolin Hfa Inhaler -) 2 puff IH Q4H PRN PRN Reason: ASTHMA Carvedilol (Coreg -) 6.25 mg PO BID [facility] Last Admin: 08/08/19 22:04 Dose: 6.25 mg Digoxin (Lanoxin -) 0.125 mg PO DAILY [facility] Last Admin: 08/08/19 10:00 Dose: Not Given Diltiazem HCl (Cardizem Cd -) 240 mg PO BID [facility] Last Admin: 08/08/19 23:35 Dose: Not Given Furosemide (Lasix Injection -) 40 mg IVPUSH DAILY [facility] Last Admin: 08/09/19 10:00 Dose: 40 mg Gabapentin (Neurontin -) 100 mg PO TID [facility] Last Admin: 08/09/19 06:34 Dose: Not Given Ceftriaxone Sodium 1 gm/ (Dextrose) 50 mls @ 100 mls/hr IVPB DAILY [facility]; Protocol Last Admin: 08/09/19 09:42 Dose: 100 mls/hr Daptomycin 700 mg/ Sodium (Chloride) 100 mls @ 100 mls/hr IVPB Q24H [facility] Last Admin: 08/08/19 17:03 Dose: 100 mls/hr Levothyroxine Sodium 150 mcg/ (Levothyroxine Sodium 25 mcg) 175 mcg PO DAILY@ 0700 [facility] Last Admin: 08/09/19 06:34 Dose: Not Given Lidocaine (Lidoderm Patch -) 1 patch TP DAILY [facility] Last Admin: 08/08/19 11:08 Dose: 1 patch Miscellaneous (Lidoderm Patch Removal) 1 each MC DAILY@2200 [facility] Last Admin: 08/08/19 22:00 Dose: 1 each Mometasone Furoate (Asmanex 220mcg -) 1 puff IH BID [facility] Last Admin: 08/09/19 11:10 Dose: 1 puff Pantoprazole Sodium (Protonix -) 40 mg PO DAILY [facility] Last Admin: 08/08/19 11:07 Dose: 40 mg Spironolactone (Aldactone -) 25 mg PO DAILY [facility] Last Admin: 08/08/19 11:08 Dose: 25 mg Tiotropium [place] (Spiriva Respimat) 2 puff IH DAILY [facility] Last Admin: 08/09/19 11:09 Dose: 2 puff - Objective Vital Signs: Vital Signs Temperature 98.0 F 08/09/19 06:00 Pulse Rate 66 08/09/19 06:00 Respiratory Rate 18 08/09/19 06:00 Blood Pressure 110/65 08/09/19 06:00 O2 Sat by Pulse Oximetry (%) 97 08/08/19 20:43 Constitutional: Yes: No Distress, Calm Cardiovascular: Yes: S1, S2 Respiratory: Yes: Regular, CTA Bilaterally Gastrointestinal: Yes: Normal Bowel Sounds, Soft Musculoskeletal: Yes: WNL Extremities: Yes: WNL Neurological: Yes: Alert, Oriented Psychiatric: Yes: Alert, Oriented Labs: CBC, BMP 08/09/19 06:40 08/09/19 06:40 INR, PTT INR 2.54 (0.83-1.09) H 08/09/19 06:40 Assessment/Plan A/P Acute Metabolic Encephalopathy Transaminitis with elevated Alk phos COPD SSS s/p PPM placement Atrial fibrillation Hypothyroidism uti gm positive bacteremia plan continue current abx close watch await for bright results rest as per the team await for repeat blood cx reports
[2019-08-09] MEDS ORDERED: LIDOCAINE VISCOUS 2% ORAL/TOP 20 ML UNIT-DOSE CUP ONE (12:51)
[2019-08-09] MEDS ORDERED: LIDOCAINE VISCOUS 2% ORAL/TOP 20 ML UNIT-DOSE CUP MM ONE (13:06)
--- NOTE | 2019-08-09 13:34 | PN ---
Progress Note (short form) - Note Progress Note: 78-year-old female with history of coronary artery disease, status post CABG, history of bioprosthetic mitral and aortic valve replacement in 2015, maze procedure, status post permanent pacemaker for sick sinus syndrome, atrial fibrillation, hypertension, hypertensive cardiovascular disease, congestive heart failure, hypothyroidism.admitted with confusion and fever and is currently being treated for urinary sepsis and bacteremia Remains lethargic but easily arousable, no SOB or chest pain reported. JANICE reported pending. ALLERGIES: None reported. Active Medications Acetaminophen (Tylenol -) 650 mg PO Q6H PRN PRN Reason: Fever Or Pain Last Admin: 08/08/19 22:04 Dose: 650 mg Albuterol Sulfate (Ventolin Hfa Inhaler -) 1 puff IH Q4H PRN PRN Reason: ASTHMA Albuterol Sulfate (Ventolin Hfa Inhaler -) 2 puff IH Q4H PRN PRN Reason: ASTHMA Carvedilol (Coreg -) 6.25 mg PO BID [facility] Last Admin: 08/08/19 22:04 Dose: 6.25 mg Digoxin (Lanoxin -) 0.125 mg PO DAILY [facility] Last Admin: 08/08/19 10:00 Dose: Not Given Diltiazem HCl (Cardizem Cd -) 240 mg PO BID [facility] Last Admin: 08/08/19 23:35 Dose: Not Given Furosemide (Lasix Injection -) 40 mg IVPUSH DAILY [facility] Last Admin: 08/09/19 10:00 Dose: 40 mg Gabapentin (Neurontin -) 100 mg PO TID [facility] Last Admin: 08/09/19 06:34 Dose: Not Given Ceftriaxone Sodium 1 gm/ (Dextrose) 50 mls @ 100 mls/hr IVPB DAILY [facility]; Protocol Last Admin: 08/09/19 09:42 Dose: 100 mls/hr Daptomycin 700 mg/ Sodium (Chloride) 100 mls @ 100 mls/hr IVPB Q24H [facility] Last Admin: 08/08/19 17:03 Dose: 100 mls/hr Levothyroxine Sodium 150 mcg/ (Levothyroxine Sodium 25 mcg) 175 mcg PO DAILY@ 0700 [facility] Last Admin: 08/09/19 06:34 Dose: Not Given Lidocaine (Lidoderm Patch -) 1 patch TP DAILY [facility] Last Admin: 08/08/19 11:08 Dose: 1 patch Miscellaneous (Lidoderm Patch Removal) 1 each MC DAILY@2200 [facility] Last Admin: 08/08/19 22:00 Dose: 1 each Mometasone Furoate (Asmanex 220mcg -) 1 puff IH BID [facility] Last Admin: 08/09/19 11:10 Dose: 1 puff Pantoprazole Sodium (Protonix -) 40 mg PO DAILY [facility] Last Admin: 08/08/19 11:07 Dose: 40 mg Spironolactone (Aldactone -) 25 mg PO DAILY [facility] Last Admin: 08/08/19 11:08 Dose: 25 mg Tiotropium [place] (Spiriva Respimat) 2 puff IH DAILY [facility] Last Admin: 08/09/19 11:09 Dose: 2 puff PHYSICAL EXAMINATION:General: 78-year-old female, lethargic, afebrile. Last Vital Signs Temp Pulse Resp BP Pulse Ox 98 F 58 irregular 18 121/68 97 08/09/19 10:00 08/09/19 10:00 08/09/19 10:00 08/09/19 10:00 08/09/19 09:00 Neck: Supple, no jugular venous distention, carotids were 2+, upstrokes were normal, no bruits were heard and no thyromegaly was present. Heart: No heaves or thrills, S1 is variable, S2 was normal, ejection systolic murmur grade II/ was heard at the 2nd right intercostal space, decrescendo Grade II/ systolic murmur was heard at the apex, no diastolic murmur or gallops were heard. Lungs: Clear on auscultation. Abdomen: Soft, obese and nontender. No hepatosplenomegaly or palpable masses were felt. Extremities: No calf tenderness or dependent edema. Pulses were equal. CBC, BMP 08/09/19 06:40 08/09/19 06:40 IMPRESSION: 1. Lethargy and weakness, probably related to recent sepsis/ endocarditis is being excluded. 2. Coronary artery disease, status post coronary artery bypass grafting. 3. Sepsis/bacteremia, most likely related to UTI 4. Sick sinus syndrome. Status post permanent pacemaker. 5. Status post bioprosthetic mitral valve replacement. 6. Status post bioprosthetic aortic valve replacement. 7. History of congestive heart failure. 8. Hypertension, hypertensive cardiovascular disease. 9. Acute on chronic left ventricular diastolic dysfunction. 10. Permanent atrial fibrillation. 11. Carotid artery disease. 12. History of bronchial asthma. 13. Hypercholesterolemia. 14. Status post maze procedure. 15. Hypothyroidism, on replacement therapy. RECOMMENDATIONS: 1. Continue with current line of cardiac therapy. 2. PT.Bedside Prognosis: Critical. KESHA CHIN M.D.
--- NOTE | 2019-08-09 13:37 | PROC ---
Transesophageal Echocardiogram - Pre-Procedure Indications: R/O Infective Endocarditis Risks and Benefits Explained: Yes Consent on Chart: Yes - Procedure Procedure Done: in Endoscopy Suite Medication given: per anesthesiologist Findings: mobile echodensity on bio prosthetic MV leaflet, cannot rule out vegetation
[2019-08-09] MEDS: DAPTOMYCIN 700 MG in SODIUM CHLORIDE 100 ML IVPB SCH (16:22)
[2019-08-09] MEDS: CARVEDILOL 6.25 MG TABLET (FP) PO SCH ×2 (16:23→22:00)
[2019-08-09] MEDS: LIDOCAINE 5% TOPICAL PATCH TP SCH (16:23)
[2019-08-09] MEDS: PANTOPRAZOLE 40 MG TABLET (FP) PO SCH (16:24)
[2019-08-09] MEDS: SPIRONOLACTONE 25 MG TABLET (FP) PO SCH (16:24)
[2019-08-09] MEDS: DIGOXIN 0.125 MG TABLET (FP) PO SCH (16:25)
--- NOTE | 2019-08-09 16:25 | PN ---
Progress Note (short form) - Note Progress Note: HPI: No events noted overnight. Pt more awake today and mentally lucid PE: Vital Signs Temperature 96 F L 08/09/19 14:02 Pulse Rate 68 08/09/19 16:25 Respiratory Rate 22 H 08/09/19 14:07 Blood Pressure 139/57 L 08/09/19 14:07 O2 Sat by Pulse Oximetry (%) 96 08/09/19 14:02 Gen: NAD, Awake, alert, oriented x2 HEENT: NC/AT, CHRISTY, MMM LUNGS: Rales improved today.no wheezes, 2LNC CARD: Irregularly irregular with 3/6 systolic murmur ABD: Soft Nt/ND, normoactive BS, no hepatomegaly EXT: 2+ DP pulses, no peripheral edema noted BACK: Paraspinal pain near lumbar spine without skin changes or breakdown remains SKIN: No rashes or lesions. Sacrum not examined today CBC, BMP 08/09/19 06:40 08/09/19 06:40 Hepatic Panel Total Bilirubin 0.8 mg/dL (0.2-1) 08/09/19 06:40 Direct Bilirubin 0.5 mg/dL (0.0-0.2) H 08/09/19 06:40 AST 55 U/L (15-37) H 08/09/19 06:40 ALT 75 U/L (13-61) H 08/09/19 06:40 Alkaline Phosphatase 232 U/L (45-117) H 08/09/19 06:40 Albumin 1.8 g/dl (3.4-5.0) L 08/09/19 06:40 Active Medications Acetaminophen (Tylenol -) 650 mg PO Q6H PRN PRN Reason: Fever Or Pain Last Admin: 08/08/19 22:04 Dose: 650 mg Albuterol Sulfate (Ventolin Hfa Inhaler -) 1 puff IH Q4H PRN PRN Reason: ASTHMA Albuterol Sulfate (Ventolin Hfa Inhaler -) 2 puff IH Q4H PRN PRN Reason: ASTHMA Carvedilol (Coreg -) 6.25 mg PO BID [facility] Last Admin: 08/08/19 22:04 Dose: 6.25 mg Digoxin (Lanoxin -) 0.125 mg PO DAILY [facility] Last Admin: 08/08/19 10:00 Dose: Not Given Diltiazem HCl (Cardizem Cd -) 240 mg PO BID [facility] Last Admin: 08/08/19 23:35 Dose: Not Given Furosemide (Lasix Injection -) 40 mg IVPUSH DAILY [facility] Last Admin: 08/09/19 10:00 Dose: 40 mg Gabapentin (Neurontin -) 100 mg PO TID [facility] Last Admin: 08/09/19 06:34 Dose: Not Given Ceftriaxone Sodium 1 gm/ (Dextrose) 50 mls @ 100 mls/hr IVPB DAILY [facility]; Protocol Last Admin: 08/09/19 09:42 Dose: 100 mls/hr Daptomycin 700 mg/ Sodium (Chloride) 100 mls @ 100 mls/hr IVPB Q24H [facility] Last Admin: 08/08/19 17:03 Dose: 100 mls/hr Levothyroxine Sodium 150 mcg/ (Levothyroxine Sodium 25 mcg) 175 mcg PO DAILY@ 0700 [facility] Last Admin: 08/09/19 06:34 Dose: Not Given Lidocaine (Lidoderm Patch -) 1 patch TP DAILY [facility] Last Admin: 08/08/19 11:08 Dose: 1 patch Miscellaneous (Lidoderm Patch Removal) 1 each MC DAILY@2200 [facility] Last Admin: 08/08/19 22:00 Dose: 1 each Mometasone Furoate (Asmanex 220mcg -) 1 puff IH BID [facility] Last Admin: 08/09/19 11:10 Dose: 1 puff Pantoprazole Sodium (Protonix -) 40 mg PO DAILY [facility] Last Admin: 08/08/19 11:07 Dose: 40 mg Spironolactone (Aldactone -) 25 mg PO DAILY [facility] Last Admin: 08/08/19 11:08 Dose: 25 mg Tiotropium [place] (Spiriva Respimat) 2 puff IH DAILY [facility] Last Admin: 08/09/19 11:09 Dose: 2 puff Microbiology 08/08/19 13:17 Blood - Peripheral Venous Blood Culture - Preliminary NO GROWTH OBTAINED AFTER 24 HOURS, INCUBATION TO CONTINUE FOR 4 DAYS. 08/08/19 13:12 Blood - Peripheral Venous Blood Culture - Preliminary NO GROWTH OBTAINED AFTER 24 HOURS, INCUBATION TO CONTINUE FOR 4 DAYS. 08/05/19 14:30 Blood - Peripheral Venous Blood Culture - Final Staphylococcus Epidermidis 08/05/19 14:30 Blood - Peripheral Venous Blood Culture - Final Staphylococcus Epidermidis 08/03/19 12:15 Blood - Peripheral Venous Blood Culture - Final Staphylococcus Epidermidis 08/03/19 12:07 Blood - Peripheral Venous Blood Culture - Final Staphylococcus Epidermidis 08/01/19 11:58 Blood - Peripheral Venous Blood Culture - Final Staphylococcus Epidermidis 08/01/19 11:58 Blood - Peripheral Venous Blood Culture - Final Staphylococcus Epidermidis 08/01/19 11:38 Urine - Urine Clean Catch Urine Culture - Final Escherichia Coli Diphtheroid/Corynebacterium A/P Acute Metabolic Encephalopathy 2/2 to UTI and G+ Bacteremia 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 intervention mgmt with Cardiology --CT spine (cervical, thoracic, lumbar) reviewed --Urine culture with lactose fermenting G- bacilli; melendez-sensitive --Continue Afib rate control and AC medications; elevated HR noted on telemetry during febrile episodes: --Coreg 6.25mg BID PO --Cardizem 240mg BID --Digoxin 0.125mg PO daily --INR improved to 2.5; Warfarin 2mg to be given today --Monitor for signs of bleeding --Continue Aldactone 25mg qdaily due to hx of HFpEF --Lasix 40mg IVP qdaily --Continue Synthroid 175mcg qdaily --Demand ischemia 2/2 to sepsis picture --Appreciated all sales support consultant recommendations FEN: Fluids - Diuresis Electrolyte abnormalities: Hyponatremia improved today Nutrition: Sodium controlled PPX: DVT - On warfarin GI - Ranitidine BID Dispo: awaiting Cx clearance with ABX change Case discussed with Dr. Orlando Levy, DO - IM PGY-3
[2019-08-09] MEDS ORDERED: WARFARIN NA 2 MG TABLET (UD) PO ONE (18:00)
[2019-08-09] MEDS: LIDOCAINE PATCH REMOVAL MC SCH (22:00)
[2019-08-10] MEDS ORDERED: PT OWN MED DRAWER 7, Y5N ONE (06:04)
[2019-08-10] MEDS: LEVOTHYROXINE 150 MCG, LEVOTHYROXINE 25 MCG PO SCH (06:11)
[2019-08-10] MEDS: GABAPENTIN 100 MG CAPSULE (FP) PO SCH ×3 (06:11→21:45)
[2019-08-10 06:18] LABS: HEMATOCRIT 36.4 % (32.4-45.2); HEMOGLOBIN 12.2 GM/dL (10.7-15.3); MCH 29.5 pg (25.7-33.7); MCHC 33.4 g/dl (32.0-36.0); MEAN CELL VOLUME 88.4 fl (80-96); MEAN PLT VOLUME 8.4 fl (7.5-11.1); PLATELET COUNT 173 K/MM3 (134-434); RBC 4.12 M/mm3 (3.60-5.2); RDW 16.2 % (11.6-15.6)
[2019-08-10 06:43] LABS: INR 2.8 (0.83-1.09); PROTHROMBIN TIME (PATIENT) 33.4 SEC (9.7-13.0)
[2019-08-10 06:44] LABS: ALBUMIN 1.8 g/dl (3.4-5.0); BILIRUBIN,TOTAL 0.7 mg/dL (0.2-1); BLOOD UREA NITROGEN 27.1 mg/dL (7-18); CALCIUM 8.6 mg/dL (8.5-10.1); CREATININE 0.9 mg/dL (0.55-1.3); MAGNESIUM 1.9 mg/dL (1.8-2.4); POTASSIUM 3.9 mmol/L (3.5-5.1)
--- NOTE | 2019-08-10 10:17 | PN ---
Progress Note (short form) - Note Progress Note: NEUROSURGERY LBP better overall. On daptomycin and ceftriaxone per ID PE: Tmax 98.1, VSS Sleepy, arousable HEENT- NC/AT; Neck- supple; Cor- Irreg; Chest- decreased BS at bases; Abd- benign; Ext- no sign of DVT CN- intact; Motor- 4+ B UE/LE except B IP 4/5 pain limited; Sensation- intact LT ; DTR- hyporeflexic ESR 79, CRP 9.6 Blood culture- MRSE; repeat blood culture + from 08-03, and 08-05 BC 2/2 MRSE l, repeat from 08-08 still + Chronic lumbar spine pathology including L4-5 spondylolisthesis and L1-2 calcified disc/bridging osteophytes with resultant stenosis though no obvious sign of osteomyelitis or discitis MRI not feasible given pacemaker presence Ongoing MRSE bateremia- ID f/u and tx On Neurontin 100 mg tid for pain Mobilize/PT/OOB DVT prophylaxis
[2019-08-10] MEDS ORDERED: DEXTROSE 5%-WATER - 50 ML IVPB ONE (10:19)
[2019-08-10] MEDS ORDERED: cefTRIAXone SODIUM 1 GM VIAL ONE (10:19)
[2019-08-10] MEDS: SPIRONOLACTONE 25 MG TABLET (FP) PO SCH (10:39)
[2019-08-10] MEDS: CARVEDILOL 6.25 MG TABLET (FP) PO SCH ×2 (10:40→21:45)
[2019-08-10] MEDS: MOMETASONE FUROATE 220 MCG/IH INHALER IH SCH ×2 (10:40→21:46)
[2019-08-10] MEDS: DIGOXIN 0.125 MG TABLET (FP) PO SCH (10:40)
[2019-08-10] MEDS: FUROSEMIDE 40 MG/4 ML INJECTABLE VIAL IVPUSH SCH (10:40)
[2019-08-10] MEDS: TIOTROPIUM BROMIDE 2.5 MCG (SPIRIVA) RESPIMAT INHALER IH SCH (10:41)
[2019-08-10] MEDS: PANTOPRAZOLE 40 MG TABLET (FP) PO SCH (10:41)
[2019-08-10] MEDS: LIDOCAINE 5% TOPICAL PATCH TP SCH (10:41)
[2019-08-10] MEDS: CEFTRIAXONE 1 GM in DEXTROSE 5%-WATER - 50 ML IVPB SCH (10:41)
--- NOTE | 2019-08-10 11:02 | PN ---
Progress Note (short form) - Note Progress Note: 78-year-old female with history of coronary artery disease, status post CABG, history of bioprosthetic mitral and aortic valve replacement in 2015, maze procedure, status post permanent pacemaker for sick sinus syndrome, atrial fibrillation, hypertension, hypertensive cardiovascular disease, congestive heart failure, hypothyroidism.admitted with confusion and fever and is currently being treated for urinary sepsis and bacteremia and multiple +ve blood cultures staph epidermidis. Remains lethargic and failure to thrive, mentation remains unchanged but easily arousable. JANICE reveals mobile anterior prosthetic mitral leaflet echodensity vegetation cannot be excluded. Clinical presentation and JANICE are suspicious for endocarditis. Remains afebrile.Pacing appropriately, underline rhythm is atrial fib. ALLERGIES: None reported. Active Medications Acetaminophen (Tylenol -) 650 mg PO Q6H PRN PRN Reason: Fever Or Pain Last Admin: 08/08/19 22:04 Dose: 650 mg Albuterol Sulfate (Ventolin Hfa Inhaler -) 1 puff IH Q4H PRN PRN Reason: ASTHMA Albuterol Sulfate (Ventolin Hfa Inhaler -) 2 puff IH Q4H PRN PRN Reason: ASTHMA Carvedilol (Coreg -) 6.25 mg PO BID [facility] Last Admin: 08/10/19 10:40 Dose: 6.25 mg Digoxin (Lanoxin -) 0.125 mg PO DAILY [facility] Last Admin: 08/10/19 10:40 Dose: 0.125 mg Diltiazem HCl (Cardizem Cd -) 240 mg PO BID [facility] Last Admin: 08/10/19 10:40 Dose: 240 mg Furosemide (Lasix Injection -) 40 mg IVPUSH DAILY [facility] Last Admin: 08/10/19 10:40 Dose: 40 mg Gabapentin (Neurontin -) 100 mg PO TID [facility] Last Admin: 08/10/19 06:11 Dose: 100 mg Ceftriaxone Sodium 1 gm/ (Dextrose) 50 mls @ 100 mls/hr IVPB DAILY [facility]; Protocol Last Admin: 08/10/19 10:41 Dose: 100 mls/hr Daptomycin 700 mg/ Sodium (Chloride) 100 mls @ 100 mls/hr IVPB Q24H [facility] Last Admin: 08/09/19 16:22 Dose: 100 mls/hr Levothyroxine Sodium 150 mcg/ (Levothyroxine Sodium 25 mcg) 175 mcg PO DAILY@ 0700 [facility] Last Admin: 08/10/19 06:11 Dose: 175 mcg Lidocaine (Lidoderm Patch -) 1 patch TP DAILY [facility] Last Admin: 08/10/19 10:41 Dose: 1 patch Miscellaneous (Lidoderm Patch Removal) 1 each MC DAILY@2200 [facility] Last Admin: 08/09/19 22:00 Dose: 1 each Mometasone Furoate (Asmanex 220mcg -) 1 puff IH BID [facility] Last Admin: 08/10/19 10:40 Dose: 1 puff Pantoprazole Sodium (Protonix -) 40 mg PO DAILY [facility] Last Admin: 08/10/19 10:41 Dose: 40 mg Spironolactone (Aldactone -) 25 mg PO DAILY [facility] Last Admin: 08/10/19 10:39 Dose: 25 mg Tiotropium [place] (Spiriva Respimat) 2 puff IH DAILY [facility] Last Admin: 08/10/19 10:41 Dose: 2 puff PHYSICAL EXAMINATION:General: 78-year-old female, lethargic, afebrile. Last Vital Signs Temp Pulse Resp BP Pulse Ox 98.1 F 61 18 136/60 96 08/10/19 09:00 08/10/19 10:40 08/10/19 09:00 08/10/19 09:00 08/09/19 21:00 Neck: Supple, no jugular venous distention, carotids were 2+, upstrokes were normal, no bruits were heard and no thyromegaly was present. Heart: No heaves or thrills, S1 is variable, S2 was normal, ejection systolic murmur grade II/ was heard at the 2nd right intercostal space, decrescendo Grade II/ systolic murmur was heard at the apexand LSB no diastolic murmur or gallops were heard. Lungs: Clear on auscultation. Abdomen: Soft, obese and nontender. No hepatosplenomegaly or palpable masses were felt. Extremities: No calf tenderness or dependent edema. Pulses were equal. CBC, BMP 08/10/19 05:48 08/10/19 05:48 IMPRESSION: 1. Mental confusion and agitation most likely related to toxic and/or metabolic encephalopathy. 2. Coronary artery disease, status post coronary artery bypass grafting. 3. Sepsis. 4. Sick sinus syndrome. Status post permanent pacemaker. 5. 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 6. Status post bioprosthetic aortic valve replacement with mild perivalvular leak(seeTEE report). 7. History of congestive heart failure. 8. Hypertension, hypertensive cardiovascular disease. 9. Acute on chronic left ventricular diastolic dysfunction. 10. Permanent atrial fibrillation. 11. Carotid artery disease. 12. History of bronchial asthma. 13. Hypercholesterolemia. 14. Status post maze procedure. 15. Hypothyroidism, on replacement therapy. RECOMMENDATIONS: 1. Continue with current line of cardiac therapy. 2. Discuss with ID and PCP whether to transfer patient to tertiary care in case surgical intervention may be needed. Prognosis: Critical. KESHA CHIN M.D. Time spent 30 mins.
--- NOTE | 2019-08-10 11:21 | PN ---
Progress Note (short form) - Note Progress Note: HPI: No events noted overnight. No telemetry events appreciated. Pt slightly tired today, however appears less toxic. HPI limited 2/2 pt's dementia PE: Vital Signs Temperature 98.1 F 08/10/19 09:00 Pulse Rate 61 08/10/19 10:40 Respiratory Rate 18 08/10/19 09:00 Blood Pressure 136/60 08/10/19 09:00 O2 Sat by Pulse Oximetry (%) 96 08/09/19 21:00 Gen: NAD, Awake, alert, oriented x2 HEENT: NC/AT, CHRISTY, MMM LUNGS: Rales and diminshed sounds R>L bases . no wheezes, 2LNC CARD: Irregularly irregular with 3/6 systolic murmur ABD: Soft Nt/ND, normoactive BS, no hepatomegaly EXT: 2+ DP pulses, no peripheral edema noted CBC, BMP 08/10/19 05:48 08/10/19 05:48 Hepatic Panel Total Bilirubin 0.7 mg/dL (0.2-1) 08/10/19 05:48 Direct Bilirubin 0.5 mg/dL (0.0-0.2) H 08/09/19 06:40 AST 51 U/L (15-37) H 08/10/19 05:48 ALT 63 U/L (13-61) H 08/10/19 05:48 Alkaline Phosphatase 202 U/L (45-117) H 08/10/19 05:48 Albumin 1.8 g/dl (3.4-5.0) L 08/10/19 05:48 Active Medications Acetaminophen (Tylenol -) 650 mg PO Q6H PRN PRN Reason: Fever Or Pain Last Admin: 08/08/19 22:04 Dose: 650 mg Albuterol Sulfate (Ventolin Hfa Inhaler -) 1 puff IH Q4H PRN PRN Reason: ASTHMA Albuterol Sulfate (Ventolin Hfa Inhaler -) 2 puff IH Q4H PRN PRN Reason: ASTHMA Carvedilol (Coreg -) 6.25 mg PO BID [facility] Last Admin: 08/10/19 10:40 Dose: 6.25 mg Digoxin (Lanoxin -) 0.125 mg PO DAILY [facility] Last Admin: 08/10/19 10:40 Dose: 0.125 mg Diltiazem HCl (Cardizem Cd -) 240 mg PO BID [facility] Last Admin: 08/10/19 10:40 Dose: 240 mg Furosemide (Lasix Injection -) 40 mg IVPUSH DAILY [facility] Last Admin: 08/10/19 10:40 Dose: 40 mg Gabapentin (Neurontin -) 100 mg PO TID [facility] Last Admin: 08/10/19 06:11 Dose: 100 mg Ceftriaxone Sodium 1 gm/ (Dextrose) 50 mls @ 100 mls/hr IVPB DAILY [facility]; Protocol Last Admin: 08/10/19 10:41 Dose: 100 mls/hr Daptomycin 700 mg/ Sodium (Chloride) 100 mls @ 100 mls/hr IVPB Q24H [facility] Last Admin: 08/09/19 16:22 Dose: 100 mls/hr Levothyroxine Sodium 150 mcg/ (Levothyroxine Sodium 25 mcg) 175 mcg PO DAILY@ 0700 [facility] Last Admin: 08/10/19 06:11 Dose: 175 mcg Lidocaine (Lidoderm Patch -) 1 patch TP DAILY [facility] Last Admin: 08/10/19 10:41 Dose: 1 patch Miscellaneous (Lidoderm Patch Removal) 1 each MC DAILY@2200 [facility] Last Admin: 08/09/19 22:00 Dose: 1 each Mometasone Furoate (Asmanex 220mcg -) 1 puff IH BID [facility] Last Admin: 08/10/19 10:40 Dose: 1 puff Pantoprazole Sodium (Protonix -) 40 mg PO DAILY [facility] Last Admin: 08/10/19 10:41 Dose: 40 mg Spironolactone (Aldactone -) 25 mg PO DAILY [facility] Last Admin: 08/10/19 10:39 Dose: 25 mg Tiotropium [place] (Spiriva Respimat) 2 puff IH DAILY [facility] Last Admin: 08/10/19 10:41 Dose: 2 puff Microbiology 08/08/19 13:17 Blood - Peripheral Venous Blood Culture - Preliminary NO GROWTH OBTAINED AFTER 24 HOURS, INCUBATION TO CONTINUE FOR 4 DAYS. 08/08/19 13:12 Blood - Peripheral Venous Blood Culture - Preliminary NO GROWTH OBTAINED AFTER 24 HOURS, INCUBATION TO CONTINUE FOR 4 DAYS. 08/05/19 14:30 Blood - Peripheral Venous Blood Culture - Final Staphylococcus Epidermidis 08/05/19 14:30 Blood - Peripheral Venous Blood Culture - Final Staphylococcus Epidermidis 08/03/19 12:15 Blood - Peripheral Venous Blood Culture - Final Staphylococcus Epidermidis 08/03/19 12:07 Blood - Peripheral Venous Blood Culture - Final Staphylococcus Epidermidis 08/01/19 11:58 Blood - Peripheral Venous Blood Culture - Final Staphylococcus Epidermidis 08/01/19 11:58 Blood - Peripheral Venous Blood Culture - Final Staphylococcus Epidermidis 08/01/19 11:38 Urine - Urine Clean Catch Urine Culture - Final Escherichia Coli Diphtheroid/Corynebacterium A/P Acute Metabolic Encephalopathy 2/2 to UTI and G+ Bacteremia 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 intervention mgmt with Cardiology --Obtain JANICE report for size of vegetations --Continue Afib rate control and AC medications; elevated HR noted on telemetry during febrile episodes: --Coreg 6.25mg BID PO --Cardizem 240mg BID --Digoxin 0.125mg PO daily --INR 2.8; Warfarin 2mg q48h regiment (none today) --Continue Aldactone 25mg qdaily due to hx of HFpEF --Continue Synthroid 175mcg qdaily --Appreciated all consultant in ergonomics and safety recommendations FEN: Fluids - None Electrolyte abnormalities: None today Nutrition: Sodium controlled PPX: DVT - On warfarin GI - Ranitidine BID Dispo: awaiting Cx clearance Case discussed with Dr. Norberto Levy, DO - IM PGY-3 <Abram Levy - Last Filed: 08/10/19 14:32> - Note Progress Note: Seen and examined; agree with above. Discussed with ID consulting service-we need to see if we can change the diltiazem as would like to add rifampin. Pending discussion with cardiology. VS, labs, and all diagnostics reviewed NAD, AAO, resting in bed NT ND +BS RRR s1/2 +sys mrm CN2-12 wnl, no changes from previous neeuro assessment A/P: Overall she presented last week with sepsis 2/2 endocarditis and remains on service. She has multiple problems as excellently described above in list. Her fluid status is chronically difficyult to ascertain but she remains approaching euvolemia. She will continue on coreg, cardizem (pending discussion ), dig, warfarin (pharmacy to dose) and aldactone. She is Day #2 Dapto-pending potential rifampin addition. JANICE has been preformed but the report is pending. We will continue to monitor her on the floor, controlling her diet for sodium and seeing if we can adjust abx for additional tx.Source of endocarditis/ bacteremia not clear. Potential seeding from prior infection. Will discuss and review further. All diagnostics reviewed personally unless otherwise indicated 55 minutes spent in delivery of high-complexity care to this patient. <Franck Thornton - Last Filed: 08/10/19 18:59>
--- NOTE | 2019-08-10 11:23 | PN ---
Progress Note, Physician History of Present Illness: pulmonary drowsy,-resp distress - Current Medication List Current Medications: Active Medications Acetaminophen (Tylenol -) 650 mg PO Q6H PRN PRN Reason: Fever Or Pain Last Admin: 08/08/19 22:04 Dose: 650 mg Albuterol Sulfate (Ventolin Hfa Inhaler -) 1 puff IH Q4H PRN PRN Reason: ASTHMA Albuterol Sulfate (Ventolin Hfa Inhaler -) 2 puff IH Q4H PRN PRN Reason: ASTHMA Carvedilol (Coreg -) 6.25 mg PO BID [facility] Last Admin: 08/10/19 10:40 Dose: 6.25 mg Digoxin (Lanoxin -) 0.125 mg PO DAILY [facility] Last Admin: 08/10/19 10:40 Dose: 0.125 mg Diltiazem HCl (Cardizem Cd -) 240 mg PO BID [facility] Last Admin: 08/10/19 10:40 Dose: 240 mg Furosemide (Lasix Injection -) 40 mg IVPUSH DAILY [facility] Last Admin: 08/10/19 10:40 Dose: 40 mg Gabapentin (Neurontin -) 100 mg PO TID [facility] Last Admin: 08/10/19 06:11 Dose: 100 mg Ceftriaxone Sodium 1 gm/ (Dextrose) 50 mls @ 100 mls/hr IVPB DAILY [facility]; Protocol Last Admin: 08/10/19 10:41 Dose: 100 mls/hr Daptomycin 700 mg/ Sodium (Chloride) 100 mls @ 100 mls/hr IVPB Q24H [facility] Last Admin: 08/09/19 16:22 Dose: 100 mls/hr Levothyroxine Sodium 150 mcg/ (Levothyroxine Sodium 25 mcg) 175 mcg PO DAILY@ 0700 [facility] Last Admin: 08/10/19 06:11 Dose: 175 mcg Lidocaine (Lidoderm Patch -) 1 patch TP DAILY [facility] Last Admin: 08/10/19 10:41 Dose: 1 patch Miscellaneous (Lidoderm Patch Removal) 1 each MC DAILY@2200 [facility] Last Admin: 08/09/19 22:00 Dose: 1 each Mometasone Furoate (Asmanex 220mcg -) 1 puff IH BID [facility] Last Admin: 08/10/19 10:40 Dose: 1 puff Pantoprazole Sodium (Protonix -) 40 mg PO DAILY [facility] Last Admin: 08/10/19 10:41 Dose: 40 mg Spironolactone (Aldactone -) 25 mg PO DAILY [facility] Last Admin: 08/10/19 10:39 Dose: 25 mg Tiotropium [place] (Spiriva Respimat) 2 puff IH DAILY [facility] Last Admin: 08/10/19 10:41 Dose: 2 puff - Objective Vital Signs: Vital Signs Temperature 98.1 F 08/10/19 09:00 Pulse Rate 61 08/10/19 10:40 Respiratory Rate 18 08/10/19 09:00 Blood Pressure 136/60 08/10/19 09:00 O2 Sat by Pulse Oximetry (%) 96 08/09/19 21:00 Constitutional: Yes: Well Nourished, Other (drowsy) HENT: Yes: WNL Neck: Yes: WNL Cardiovascular: Yes: Pulse Irregular, Murmur, S1, S2 Respiratory: Yes: Diminished Gastrointestinal: Yes: Normal Bowel Sounds, Soft Extremities: Yes: WNL Edema: No Labs: CBC, BMP 08/10/19 05:48 08/10/19 05:48 INR, PTT INR 2.80 (0.83-1.09) H 08/10/19 05:48 Problem List - Problems (1) Acute on chronic diastolic (congestive) heart failure Code(s): I50.33 - ACUTE ON CHRONIC DIASTOLIC (CONGESTIVE) HEART FAILURE (2) Altered mental status Code(s): R41.82 - ALTERED MENTAL STATUS, UNSPECIFIED Qualifiers: Altered mental status type: disorientation Qualified Code(s): R41.0 - Disorientation, unspecified (3) Atrial fibrillation Code(s): I48.91 - UNSPECIFIED ATRIAL FIBRILLATION (4) Elevated troponin Code(s): R74.8 - ABNORMAL LEVELS OF OTHER SERUM ENZYMES (5) Sepsis Code(s): A41.9 - SEPSIS, UNSPECIFIED ORGANISM Qualifiers: Sepsis type: sepsis due to unspecified organism Sepsis acute organ dysfunction status: unspecified Qualified Code(s): A41.9 - Sepsis, unspecified organism (6) UTI (urinary tract infection) Code(s): N39.0 - URINARY TRACT INFECTION, SITE NOT SPECIFIED Qualifiers: Urinary tract infection type: site unspecified Hematuria presence: without hematuria Qualified Code(s): N39.0 - Urinary tract infection, site not specified (7) Atrial fibrillation Code(s): I48.91 - UNSPECIFIED ATRIAL FIBRILLATION Qualifiers: Atrial fibrillation type: chronic (8) CAD (coronary artery disease), autologous vein bypass graft Code(s): I25.810 - ATHEROSCLEROSIS OF CABG W/O ANGINA PECTORIS Qualifiers: Associated angina: without angina Qualified Code(s): I25.810 - Atherosclerosis of coronary artery bypass graft(s) without angina pectoris (9) History of aortic valve replacement with bioprosthetic valve Code(s): Z95.4 - PRESENCE OF OTHER HEART-VALVE REPLACEMENT (10) History of mitral valve replacement with bioprosthetic valve Code(s): Z95.4 - PRESENCE OF OTHER HEART-VALVE REPLACEMENT (11) Hyperlipidemia Code(s): E78.5 - HYPERLIPIDEMIA, UNSPECIFIED Qualifiers: Hyperlipidemia type: unspecified Qualified Code(s): E78.5 - Hyperlipidemia , unspecified (12) Hypertension Code(s): I10 - ESSENTIAL (PRIMARY) HYPERTENSION Qualifiers: Hypertension type: essential hypertension Qualified Code(s): I10 - Essential (primary) hypertension (13) Hypothyroidism Code(s): E03.9 - HYPOTHYROIDISM, UNSPECIFIED Qualifiers: Hypothyroidism type: unspecified Qualified Code(s): E03.9 - Hypothyroidism , unspecified (14) Pleural effusion Code(s): J90 - PLEURAL EFFUSION, NOT ELSEWHERE CLASSIFIED Assessment/Plan Problem List - Problems (1) Acute on chronic diastolic (congestive) heart failure Code(s): I50.33 - ACUTE ON CHRONIC DIASTOLIC (CONGESTIVE) HEART FAILURE Assessment/Plan Acute on Chronic Diastolic Heart Failure UTI Gram Positive Bacteremia r/o Pneumonia Pleural Effusions Sepsis +Troponins likely Demand Ischemia Elevated LFTs CAD s/p CABG Atrial Fibrillation h/o AVR/MVR SSS s/p PPM COPD Hypothyroidism Back pain r/o Paraspinal abscess ?Endocarditis - continue antibiotics per ID - pleural effusions are likely from CHF but cannot rule out pneumonia given bacteremia - IV lasix - monitor urine output, creatinine - rate control - aspiration precautions - O2 to keep SpO2 >90% - DVT prophylaxis DR ANGELES
--- NOTE | 2019-08-10 11:45 | PN ---
Progress Note, Physician History of Present Illness: afebrile mental status going in and out awaiting bright report repeat blood cx ordered - Current Medication List Current Medications: Active Medications Acetaminophen (Tylenol -) 650 mg PO Q6H PRN PRN Reason: Fever Or Pain Last Admin: 08/08/19 22:04 Dose: 650 mg Albuterol Sulfate (Ventolin Hfa Inhaler -) 1 puff IH Q4H PRN PRN Reason: ASTHMA Albuterol Sulfate (Ventolin Hfa Inhaler -) 2 puff IH Q4H PRN PRN Reason: ASTHMA Carvedilol (Coreg -) 6.25 mg PO BID [facility] Last Admin: 08/10/19 10:40 Dose: 6.25 mg Digoxin (Lanoxin -) 0.125 mg PO DAILY [facility] Last Admin: 08/10/19 10:40 Dose: 0.125 mg Diltiazem HCl (Cardizem Cd -) 240 mg PO BID [facility] Last Admin: 08/10/19 10:40 Dose: 240 mg Furosemide (Lasix Injection -) 40 mg IVPUSH DAILY [facility] Last Admin: 08/10/19 10:40 Dose: 40 mg Gabapentin (Neurontin -) 100 mg PO TID [facility] Last Admin: 08/10/19 06:11 Dose: 100 mg Ceftriaxone Sodium 1 gm/ (Dextrose) 50 mls @ 100 mls/hr IVPB DAILY [facility]; Protocol Last Admin: 08/10/19 10:41 Dose: 100 mls/hr Daptomycin 700 mg/ Sodium (Chloride) 100 mls @ 100 mls/hr IVPB Q24H [facility] Last Admin: 08/09/19 16:22 Dose: 100 mls/hr Levothyroxine Sodium 150 mcg/ (Levothyroxine Sodium 25 mcg) 175 mcg PO DAILY@ 0700 [facility] Last Admin: 08/10/19 06:11 Dose: 175 mcg Lidocaine (Lidoderm Patch -) 1 patch TP DAILY [facility] Last Admin: 08/10/19 10:41 Dose: 1 patch Miscellaneous (Lidoderm Patch Removal) 1 each MC DAILY@2200 [facility] Last Admin: 08/09/19 22:00 Dose: 1 each Mometasone Furoate (Asmanex 220mcg -) 1 puff IH BID [facility] Last Admin: 08/10/19 10:40 Dose: 1 puff Pantoprazole Sodium (Protonix -) 40 mg PO DAILY [facility] Last Admin: 08/10/19 10:41 Dose: 40 mg Spironolactone (Aldactone -) 25 mg PO DAILY [facility] Last Admin: 08/10/19 10:39 Dose: 25 mg Tiotropium [place] (Spiriva Respimat) 2 puff IH DAILY [facility] Last Admin: 08/10/19 10:41 Dose: 2 puff - Objective Vital Signs: Vital Signs Temperature 98.1 F 08/10/19 09:00 Pulse Rate 61 08/10/19 10:40 Respiratory Rate 18 08/10/19 09:00 Blood Pressure 136/60 08/10/19 09:00 O2 Sat by Pulse Oximetry (%) 96 08/09/19 21:00 Constitutional: Yes: No Distress, Calm Cardiovascular: Yes: S1, S2, Other (murmur present) Respiratory: Yes: Regular, CTA Bilaterally Gastrointestinal: Yes: Normal Bowel Sounds, Soft Musculoskeletal: Yes: WNL Extremities: Yes: WNL Labs: CBC, BMP 08/10/19 05:48 08/10/19 05:48 INR, PTT INR 2.80 (0.83-1.09) H 08/10/19 05:48 Assessment/Plan A/P Acute Metabolic Encephalopathy Transaminitis with elevated Alk phos COPD SSS s/p PPM placement Atrial fibrillation Hypothyroidism uti gm positive bacteremia plan continue current abx close watch await for bright results will see what repeat blood cx are showing once we have the bright and repeat blood cx if still positive might add additional agent
--- NOTE | 2019-08-10 12:14 | PN.GI ---
GI Progress Note Subjective: GI NOte: LFTs remain mildly elevated but CT reveals no liver abscesses, masses of biliary obstruction. No obvious SBE on echo. - Objective Vital Signs: Vital Signs Temperature 98.1 F 08/10/19 09:00 Pulse Rate 61 08/10/19 10:40 Respiratory Rate 18 08/10/19 09:00 Blood Pressure 136/60 08/10/19 09:00 O2 Sat by Pulse Oximetry (%) 96 08/09/19 21:00 Laboratory Tests 08/02/19 08/09/19 08/10/19 06:08 06:40 05:48 Total Bilirubin 0.8 0.7 Direct Bilirubin 0.5 H AST 67 H 51 H ALT 72 H 63 H Alkaline Phosphatase 148 H 202 H Constitutional: Calm ...Auscultate: Yes: Normoactive Bowel Sounds ...Palpate: Yes: Soft, Other (nontender) Labs: CBC, BMP 08/10/19 05:48 08/10/19 05:48 INR, PTT INR 2.80 (0.83-1.09) H 08/10/19 05:48 Assessment/Plan Assessment: - Staph epidermitis sepsis. Elevated LFTs are reactive to sepsis. ? SBE. Doubt GI source . ? oral Plan: -- ? JANICE to more definitively exclude SBE -- Antibiotics as per ID bath design sales consultant Problem List - Problems (1) Hepatopathy Assessment/Plan: Due to gm positive sepsis Code(s): K76.9 - LIVER DISEASE, UNSPECIFIED (2) Altered mental status Code(s): R41.82 - ALTERED MENTAL STATUS, UNSPECIFIED Qualifiers: Altered mental status type: disorientation Qualified Code(s): R41.0 - Disorientation, unspecified (3) Sepsis Code(s): A41.9 - SEPSIS, UNSPECIFIED ORGANISM Qualifiers: Sepsis type: sepsis due to unspecified organism Sepsis acute organ dysfunction status: unspecified Qualified Code(s): A41.9 - Sepsis, unspecified organism (4) Abnormal liver function tests Code(s): R94.5 - ABNORMAL RESULTS OF LIVER FUNCTION STUDIES (5) History of adenomatous polyp of colon Code(s): Z86.010 - PERSONAL HISTORY OF COLONIC POLYPS (6) Diverticulosis Code(s): K57.90 - DVRTCLOS OF INTEST, PART UNSP, W/O PERF OR ABSCESS W/O BLEED (7) Uterine malignancy Code(s): C55 - MALIGNANT NEOPLASM OF UTERUS, PART UNSPECIFIED (8) Angiodysplasia of cecum Code(s): K55.20 - ANGIODYSPLASIA OF COLON WITHOUT HEMORRHAGE (9) Atrial fibrillation Code(s): I48.91 - UNSPECIFIED ATRIAL FIBRILLATION Qualifiers: Atrial fibrillation type: chronic (10) CAD (coronary artery disease), autologous vein bypass graft Code(s): I25.810 - ATHEROSCLEROSIS OF CABG W/O ANGINA PECTORIS Qualifiers: Associated angina: without angina Qualified Code(s): I25.810 - Atherosclerosis of coronary artery bypass graft(s) without angina pectoris (11) COPD (chronic obstructive pulmonary disease) Code(s): J44.9 - CHRONIC OBSTRUCTIVE PULMONARY DISEASE, UNSPECIFIED Qualifiers: COPD type: unspecified COPD Qualified Code(s): J44.9 - Chronic obstructive pulmonary disease, unspecified (12) Diastolic CHF, chronic Code(s): I50.32 - CHRONIC DIASTOLIC (CONGESTIVE) HEART FAILURE (13) History of aortic valve replacement with bioprosthetic valve Code(s): Z95.4 - PRESENCE OF OTHER HEART-VALVE REPLACEMENT (14) History of mitral valve replacement with bioprosthetic valve Code(s): Z95.4 - PRESENCE OF OTHER HEART-VALVE REPLACEMENT (15) Hyperlipidemia Code(s): E78.5 - HYPERLIPIDEMIA, UNSPECIFIED Qualifiers: Hyperlipidemia type: unspecified Qualified Code(s): E78.5 - Hyperlipidemia , unspecified (16) Hypertension Code(s): I10 - ESSENTIAL (PRIMARY) HYPERTENSION Qualifiers: Hypertension type: essential hypertension Qualified Code(s): I10 - Essential (primary) hypertension (17) Hypothyroidism Code(s): E03.9 - HYPOTHYROIDISM, UNSPECIFIED Qualifiers: Hypothyroidism type: unspecified Qualified Code(s): E03.9 - Hypothyroidism , unspecified
--- NOTE | 2019-08-10 12:25 | ECHO ---
Version: 1 Study ID: [id number] Institution Name Institution Address Institution Address Line #2 Telephone & email Name: BURT JON Study Date: 08/09/2019, 12:46 PM : 1940 (MM/DD/YYYY) Gender: Female Height: 67 in Age: 78 Years Ethnicity: [facility] Weight: 193 lb Reason For Study: R/O Endocarditis BacteremiaBSA: 1.99 m Summary Statements Left ventricular systolic function is grossly normal. The right ventricular systolic function is grossly normal. There is a pacemaker lead in the right ventricle. Spontaneous contrast in LA. Mobile echodensity attached to anterior prosthetic MV leaflet, cannot rule out vegetation. Not well visualized, measures at least 0.8 cm diameter. The prosthetic mitral valve is well-seated. Bioprosthesis leaflets are thin and move normally. There is no mitral regurgitation noted. There is moderate tricuspid regurgitation. Mild paravalvular aortic regurgitation Limited views were obtained. Procedure: A 2D transesophageal echocardiogram with Doppler and color flow Doppler was performed. Informed cons ent for Transesophageal Echocardiogram, and use of a contrast agent as needed, was obtained prior to the pro cedure. IV concious sedation was administered using propafol. The patient was brought to the endoscopy suite in a fasting state. The transesophageal probe was passed without difficulty. The patient's vital signs, i ncluding blood pressure, heart rate, pulse oximetry and cardiac rhythm were monitored throughout the procedur e and remained stable. The patient tolerated the procedure well without evidence of orophangeal or esophag eal trauma. Limited views were obtained. There were no complications. The patient was in atrial fibrilla tion with controlled ventricular rate during the exam. Left Ventricle The left ventricle is not well visualized. Left ventricular systolic function is grossly normal. Right Ventricle The right ventricle is not well visualized. There is a pacemaker lead in the right ventricle. No veg etation noted on pacemaker lead. The right ventricular systolic function is grossly normal. Atria Spontaneous contrast in LA. Mitral Valve The prosthetic mitral valve is well-seated. Bioprosthesis leaflets are thin and move normally. Mobil e echodensity attached to anterior prosthetic MV leaflet, cannot rule out vegetation. Not well visuali zed, measures at least 0.8 cm diameter. There is a bioprosthetic mitral valve. There is no mitral regurgi tation noted. Tricuspid Valve The tricuspid valve is normal. There is no tricuspid valve vegetation. There is moderate tricuspid regurgitation. Aortic Valve The prosthetic aortic valve is well-seated. There is a bioprosthetic aortic valve. Mild paravalvular aortic regurgitation. There are no vegetations on this prosthetic aortic valve. There is no aortic valvular vegetation. Pulmonic Valve The pulmonic valve is not well visualized. Great Vessels No obvious dissection could be visualized. MMode / 2D Measurements BMI: 30.2 kilograms/m BSA(Haycock): 2.06 m Height (metric): 170.2 cm Weight (metric): 87.5 kg Other Measurements & Calculations BSA: 1.99 m MD Patton 08/10/2019, 11:24 AM Felicia Ordering Physician: JEREL CASAS Referring Physician: SANGEETHA LINDQUIST Performed By: Samanta Rios
[2019-08-10] MEDS: DAPTOMYCIN 700 MG in SODIUM CHLORIDE 100 ML IVPB SCH (15:54)
[2019-08-10] MEDS: LIDOCAINE PATCH REMOVAL MC SCH (21:52)
[2019-08-11] VITALS: BMI 30.2
[2019-08-11 06:14] LABS: BASO % 0.9 % (0-2.0); EOS % 0.4 % (0-4.5); HEMOGLOBIN 12.4 GM/dL (10.7-15.3); LYMPH % 4.4 % (8-40); MCH 29.4 pg (25.7-33.7); MCHC 33.4 g/dl (32.0-36.0); MEAN CELL VOLUME 88.1 fl (80-96); MEAN PLT VOLUME 8.4 fl (7.5-11.1); MONO % 6.4 % (3.8-10.2); NEUT % 87.9 % (42.8-82.8); PLATELET COUNT 184 K/MM3 (134-434); RDW 16.3 % (11.6-15.6); WHITE BLOOD COUNT 13.2 K/mm3 (4.0-10.0)
[2019-08-11] MEDS ORDERED: LEVOTHYROXINE NA 100 MCG TABLET (FP) ONE (06:24)
[2019-08-11] MEDS ORDERED: LEVOTHYROXINE NA 75 MCG TABLET (FP) ONE (06:24)
[2019-08-11] MEDS: LEVOTHYROXINE 100 MCG, LEVOTHYROXINE 75 MCG PO SCH (06:25)
[2019-08-11] MEDS: GABAPENTIN 100 MG CAPSULE (FP) PO SCH ×3 (06:25→21:33)
[2019-08-11 06:44] LABS: ALBUMIN 1.8 g/dl (3.4-5.0); BILIRUBIN,TOTAL 0.7 mg/dL (0.2-1); BLOOD UREA NITROGEN 33.2 mg/dL (7-18); CALCIUM 8.3 mg/dL (8.5-10.1); MAGNESIUM 1.9 mg/dL (1.8-2.4); POTASSIUM 3.9 mmol/L (3.5-5.1); TOT PROT 6.1 g/dl (6.4-8.2)
[2019-08-11] MEDS ORDERED: cefTRIAXone SODIUM 1 GM VIAL ONE (08:25)
[2019-08-11] MEDS ORDERED: DEXTROSE 5%-WATER - 50 ML IVPB ONE (08:26)
--- NOTE | 2019-08-11 09:28 | PN ---
Progress Note (short form) - Note Progress Note: NEUROSURGERY On daptomycin and ceftriaxone per ID PE: Tmax 100 now 99, VSS More awake, conversant HEENT- NC/AT; Neck- supple; Cor- Irreg; Chest- decreased BS at bases; Abd- benign; Ext- no sign of DVT CN- intact; Motor- 4+ B UE/LE except B IP 4/5 pain limited; Sensation- intact LT ; DTR- hyporeflexic ESR 79, CRP 9.6 Blood culture- MRSE; repeat blood culture + from 08-03, and 08-05 BC 2/2 MRSE l, repeat from 08-08 + 1/2; repeat from 08-10 pending Chronic lumbar spine pathology including L4-5 spondylolisthesis and L1-2 calcified disc/bridging osteophytes with resultant stenosis though no obvious sign of osteomyelitis or discitis JANICE result pending Ongoing MRSE bateremia- ID f/u and tx On Neurontin 100 mg tid for pain Mobilize/PT/OOB DVT prophylaxis
[2019-08-11 09:33] LABS: INR 1.88 (0.83-1.09); PROTHROMBIN TIME (PATIENT) 22.3 SEC (9.7-13.0)
--- NOTE | 2019-08-11 10:19 | PN ---
Progress Note (short form) - Note Progress Note: HPI: No events noted overnight. Pt's more lucid today. Nontoxic appearing PE: Vital Signs Temperature 99 F 08/11/19 08:52 Pulse Rate 63 08/11/19 08:52 Respiratory Rate 18 08/11/19 08:52 Blood Pressure 138/79 08/11/19 08:52 O2 Sat by Pulse Oximetry (%) 97 08/11/19 08:52 Gen: NAD, Awake, alert, oriented x2 HEENT: NC/AT, CHRISTY, MMM LUNGS: Diminished sounds at bases due to poor effort. no wheezes, 2LNC CARD: Irregularly irregular with 3/6 systolic murmur ABD: Soft Nt/ND, normoactive BS, no hepatomegaly EXT: 2+ DP pulses, no peripheral edema noted CBC, BMP 08/11/19 05:40 08/11/19 05:40 Hepatic Panel Total Bilirubin 0.7 mg/dL (0.2-1) 08/11/19 05:40 Direct Bilirubin 0.5 mg/dL (0.0-0.2) H 08/09/19 06:40 AST 89 U/L (15-37) H 08/11/19 05:40 ALT 95 U/L (13-61) H 08/11/19 05:40 Alkaline Phosphatase 232 U/L (45-117) H 08/11/19 05:40 Albumin 1.8 g/dl (3.4-5.0) L 08/11/19 05:40 Active Medications Acetaminophen (Tylenol -) 650 mg PO Q6H PRN PRN Reason: Fever Or Pain Last Admin: 08/08/19 22:04 Dose: 650 mg Albuterol Sulfate (Ventolin Hfa Inhaler -) 1 puff IH Q4H PRN PRN Reason: ASTHMA Albuterol Sulfate (Ventolin Hfa Inhaler -) 2 puff IH Q4H PRN PRN Reason: ASTHMA Carvedilol (Coreg -) 6.25 mg PO BID [facility] Last Admin: 08/10/19 21:45 Dose: 6.25 mg Digoxin (Lanoxin -) 0.125 mg PO DAILY [facility] Last Admin: 08/10/19 10:40 Dose: 0.125 mg Diltiazem HCl (Cardizem Cd -) 240 mg PO BID [facility] Last Admin: 08/10/19 21:45 Dose: 240 mg Furosemide (Lasix Injection -) 40 mg IVPUSH DAILY [facility] Last Admin: 08/10/19 10:40 Dose: 40 mg Gabapentin (Neurontin -) 100 mg PO TID [facility] Last Admin: 08/11/19 06:25 Dose: 100 mg Ceftriaxone Sodium 1 gm/ (Dextrose) 50 mls @ 100 mls/hr IVPB DAILY [facility]; Protocol Last Admin: 08/10/19 10:41 Dose: 100 mls/hr Daptomycin 700 mg/ Sodium (Chloride) 100 mls @ 100 mls/hr IVPB Q24H [facility] Last Admin: 08/10/19 15:54 Dose: 100 mls/hr Levothyroxine Sodium 100 mcg/ (Levothyroxine Sodium 75 mcg) 175 mcg PO DAILY@ 0700 [facility] Last Admin: 08/11/19 06:25 Dose: 175 mcg Lidocaine (Lidoderm Patch -) 1 patch TP DAILY [facility] Last Admin: 08/10/19 10:41 Dose: 1 patch Miscellaneous (Lidoderm Patch Removal) 1 each MC DAILY@2200 [facility] Last Admin: 08/10/19 21:52 Dose: Not Given Mometasone Furoate (Asmanex 220mcg -) 1 puff IH BID [facility] Last Admin: 08/10/19 21:46 Dose: 1 puff Pantoprazole Sodium (Protonix -) 40 mg PO DAILY [facility] Last Admin: 08/10/19 10:41 Dose: 40 mg Spironolactone (Aldactone -) 25 mg PO DAILY [facility] Last Admin: 08/10/19 10:39 Dose: 25 mg Tiotropium [place] (Spiriva Respimat) 2 puff IH DAILY [facility] Last Admin: 08/10/19 10:41 Dose: 2 puff Warfarin Sodium (Coumadin -) 2 mg PO Q2D@1800 [facility] Microbiology 08/08/19 13:17 Blood - Peripheral Venous Blood Culture - Preliminary Staphylococcus Coagulase Neg 08/08/19 13:12 Blood - Peripheral Venous Blood Culture - Preliminary NO GROWTH OBTAINED AFTER 48 HOURS, INCUBATION TO CONTINUE FOR 3 DAYS. 08/05/19 14:30 Blood - Peripheral Venous Blood Culture - Final Staphylococcus Epidermidis 08/05/19 14:30 Blood - Peripheral Venous Blood Culture - Final Staphylococcus Epidermidis 08/03/19 12:15 Blood - Peripheral Venous Blood Culture - Final Staphylococcus Epidermidis 08/03/19 12:07 Blood - Peripheral Venous Blood Culture - Final Staphylococcus Epidermidis 08/01/19 11:58 Blood - Peripheral Venous Blood Culture - Final Staphylococcus Epidermidis 08/01/19 11:58 Blood - Peripheral Venous Blood Culture - Final Staphylococcus Epidermidis 08/01/19 11:38 Urine - Urine Clean Catch Urine Culture - Final Escherichia Coli Diphtheroid/Corynebacterium A/P Acute Metabolic Encephalopathy 2/2 to UTI and G+ Bacteremia 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 HFpEF Subendocardial ischemia demand Transaminitis with elevated Alk phos COPD SSS s/p PPM placement Atrial fibrillation Hypothyroidism --JANICE reviewed: Mitral bioprosthetic valv 0.8cm without functional decline of valve. No vegetations on pacer lead or aortic bioprostethic --Given pt comorbid conditions high risk for high risk surgery without any significant worsening heart failure symptoms would opt for medical mgmt --Consultative recommendations appreciated --Continue Daptomycin day 3 (total ABX day 10) --Awaiting most blood cultures for clearance --Fever curve significantly down (afebrile for 72hr) --Continue Afib rate control and AC medications; elevated HR noted on telemetry during febrile episodes: --Coreg 6.25mg BID PO --Cardizem 240mg BID --Digoxin 0.125mg PO daily --Warfarin 2mg q48h regiment --Continue Aldactone 25mg qdaily due to hx of HFpEF --Continue Synthroid 175mcg qdaily --Appreciated all medical device sales consultant recommendations FEN: Fluids - None Electrolyte abnormalities: None today Nutrition: Sodium controlled PPX: DVT - On warfarin GI - Ranitidine BID Dispo: awaiting Cx clearance Case discussed with Dr. Norberto Levy, DO - IM PGY-3 <Abram Leyv - Last Filed: 08/11/19 10:09> - Note Progress Note: Cultures finally clear today; dilt being changed and will need to monitor HR carefully. Given the intention of adding rifampin (discussed with ID extensively) we will need to focus on BB titration in an acute overnight event. Patient is overall stable and improving. Knew was a hospital but got year wrong. No events reported overnight. Plan is to repeat cultures and continue to monitor with ongoing discussion with ID regarding final abx regimine and with CV regarding final antiarrhythmic regimine. 10 sys ROS done and negative aside from HPI I was informed by resident later in day that post discussion with pulmonary that patient would be getting assessed for resulting sequels of septic emboli which is entirely reasonable. Due to the chaotic INR we will elect to place her on a heparin drip and monitor her ongoing PTTs per protocol. Further workup of this per pulmonary VS, labs, diagnostics all independently reviewed and resident history independently confirmed along with physical exam findings for all vital portions Pulmonary exam essentially unchanged; psych per HPI NAD, AAO, resting in bed; no sundowning noted by night staff and sleepy but not confused in early AM hours. She remembers me intermittently (notably last time we met in the ER then forgetting me when seeing me on the floor later that day a few hours later and then remembering me later the same day( CV exam with murmur, no new janeway/osslers No worsening pedal edema NT ND +BS A/P: Agree with above problem list Plan for heparin drip; 0.8cm valve vegetation on prosthetic leaflet. No bonny indication for transfer as of now but should this prove resistent to transfer, should she develop CHF symptoms, etc. etc. this should be referred to CV immediatey. We will monitor HR and augment rhythm control per CV/ID guidance with acknowledgement of rifampin. Discussed at length with their service. Appreciate palliative management in the ongoing care of this patient. Continues to remain acutely ill and requires inpatient care and monitoring 50 minutes of complex care time was involved in the management and discussion of this medically complex patient. Full Code <Franck Thornton - Last Filed: 08/11/19 23:29>
[2019-08-11] MEDS: DIGOXIN 0.125 MG TABLET (FP) PO SCH (10:23)
[2019-08-11] MEDS: CEFTRIAXONE 1 GM in DEXTROSE 5%-WATER - 50 ML IVPB SCH (10:23)
[2019-08-11] MEDS: PANTOPRAZOLE 40 MG TABLET (FP) PO SCH (10:23)
[2019-08-11] MEDS: CARVEDILOL 6.25 MG TABLET (FP) PO SCH (10:23)
[2019-08-11] MEDS: FUROSEMIDE 40 MG/4 ML INJECTABLE VIAL IVPUSH SCH (10:24)
[2019-08-11] MEDS: SPIRONOLACTONE 25 MG TABLET (FP) PO SCH (10:24)
[2019-08-11] MEDS: LIDOCAINE 5% TOPICAL PATCH TP SCH (10:24)
[2019-08-11] MEDS: MOMETASONE FUROATE 220 MCG/IH INHALER IH SCH ×2 (10:35→21:34)
[2019-08-11] MEDS: TIOTROPIUM BROMIDE 2.5 MCG (SPIRIVA) RESPIMAT INHALER IH SCH (10:36)
--- NOTE | 2019-08-11 10:57 | PN ---
Progress Note, Physician History of Present Illness: PULMONARY MORE ALERT,-RESP DISTRESS,TMAX 100 - Current Medication List Current Medications: Active Medications Acetaminophen (Tylenol -) 650 mg PO Q6H PRN PRN Reason: Fever Or Pain Last Admin: 08/08/19 22:04 Dose: 650 mg Albuterol Sulfate (Ventolin Hfa Inhaler -) 1 puff IH Q4H PRN PRN Reason: ASTHMA Albuterol Sulfate (Ventolin Hfa Inhaler -) 2 puff IH Q4H PRN PRN Reason: ASTHMA Carvedilol (Coreg -) 6.25 mg PO BID [facility] [place] Last Admin: 08/11/19 10:23 Dose: 6.25 mg Digoxin (Lanoxin -) 0.125 mg PO DAILY [facility] Last Admin: 08/11/19 10:23 Dose: 0.125 mg Diltiazem HCl (Cardizem Cd -) 240 mg PO BID [facility] [place] Last Admin: 08/11/19 10:23 Dose: 240 mg Furosemide (Lasix Injection -) 40 mg IVPUSH DAILY [facility] [place] Last Admin: 08/11/19 10:24 Dose: 40 mg Gabapentin (Neurontin -) 100 mg PO TID [facility] [place] Last Admin: 08/11/19 06:25 Dose: 100 mg Ceftriaxone Sodium 1 gm/ (Dextrose) 50 mls @ 100 mls/hr IVPB DAILY [facility]; Protocol Last Admin: 08/11/19 10:23 Dose: 100 mls/hr Daptomycin 700 mg/ Sodium (Chloride) 100 mls @ 100 mls/hr IVPB Q24H [facility] [place] Last Admin: 08/10/19 15:54 Dose: 100 mls/hr Levothyroxine Sodium 100 mcg/ (Levothyroxine Sodium 75 mcg) 175 mcg PO DAILY@ 0700 [facility] [place] Last Admin: 08/11/19 06:25 Dose: 175 mcg Lidocaine (Lidoderm Patch -) 1 patch TP DAILY [facility] Last Admin: 08/11/19 10:24 Dose: 1 patch Miscellaneous (Lidoderm Patch Removal) 1 each MC DAILY@2200 [facility] Last Admin: 08/10/19 21:52 Dose: Not Given Mometasone Furoate (Asmanex 220mcg -) 1 puff IH BID [facility] Last Admin: 08/11/19 10:35 Dose: 1 puff Pantoprazole Sodium (Protonix -) 40 mg PO DAILY [facility] [place] Last Admin: 08/11/19 10:23 Dose: 40 mg Spironolactone (Aldactone -) 25 mg PO DAILY [facility] [place] Last Admin: 08/11/19 10:24 Dose: 25 mg Tiotropium [place] (Spiriva Respimat) 2 puff IH DAILY [facility] [place] Last Admin: 08/11/19 10:36 Dose: 2 puff Warfarin Sodium (Coumadin -) 2 mg PO Q2D@1800 [facility] - Objective Vital Signs: Vital Signs Temperature 99 F 08/11/19 08:52 Pulse Rate 63 08/11/19 10:23 Respiratory Rate 18 08/11/19 08:52 Blood Pressure 138/79 08/11/19 08:52 O2 Sat by Pulse Oximetry (%) 97 08/11/19 08:52 Constitutional: Yes: Well Nourished, Calm Eyes: Yes: WNL HENT: Yes: WNL Neck: Yes: WNL Cardiovascular: Yes: Pulse Irregular, S1, S2 Respiratory: Yes: Diminished (POOR INSPIRATORY EFFORT) Gastrointestinal: Yes: Normal Bowel Sounds, Soft Extremities: Yes: WNL Edema: No Labs: CBC, BMP 08/11/19 05:40 08/11/19 05:40 INR, PTT INR 1.88 (0.83-1.09) H 08/11/19 08:30 - ....Imaging Chest X-ray: Report Reviewed, Image Reviewed X-ray: Report Reviewed (BILATERAL CONGESTION ,EFFUSIONS) Problem List - Problems (1) Acute on chronic diastolic (congestive) heart failure Code(s): I50.33 - ACUTE ON CHRONIC DIASTOLIC (CONGESTIVE) HEART FAILURE (2) Altered mental status Code(s): R41.82 - ALTERED MENTAL STATUS, UNSPECIFIED Qualifiers: Altered mental status type: disorientation Qualified Code(s): R41.0 - Disorientation, unspecified (3) Atrial fibrillation Code(s): I48.91 - UNSPECIFIED ATRIAL FIBRILLATION (4) Elevated troponin Code(s): R74.8 - ABNORMAL LEVELS OF OTHER SERUM ENZYMES (5) Sepsis Code(s): A41.9 - SEPSIS, UNSPECIFIED ORGANISM Qualifiers: Sepsis type: sepsis due to unspecified organism Sepsis acute organ dysfunction status: unspecified Qualified Code(s): A41.9 - Sepsis, unspecified organism (6) UTI (urinary tract infection) Code(s): N39.0 - URINARY TRACT INFECTION, SITE NOT SPECIFIED Qualifiers: Urinary tract infection type: site unspecified Hematuria presence: without hematuria Qualified Code(s): N39.0 - Urinary tract infection, site not specified (7) Atrial fibrillation Code(s): I48.91 - UNSPECIFIED ATRIAL FIBRILLATION Qualifiers: Atrial fibrillation type: chronic (8) CAD (coronary artery disease), autologous vein bypass graft Code(s): I25.810 - ATHEROSCLEROSIS OF CABG W/O ANGINA PECTORIS Qualifiers: Associated angina: without angina Qualified Code(s): I25.810 - Atherosclerosis of coronary artery bypass graft(s) without angina pectoris (9) History of aortic valve replacement with bioprosthetic valve Code(s): Z95.4 - PRESENCE OF OTHER HEART-VALVE REPLACEMENT (10) History of mitral valve replacement with bioprosthetic valve Code(s): Z95.4 - PRESENCE OF OTHER HEART-VALVE REPLACEMENT (11) Hyperlipidemia Code(s): E78.5 - HYPERLIPIDEMIA, UNSPECIFIED Qualifiers: Hyperlipidemia type: unspecified Qualified Code(s): E78.5 - Hyperlipidemia , unspecified (12) Hypertension Code(s): I10 - ESSENTIAL (PRIMARY) HYPERTENSION Qualifiers: Hypertension type: essential hypertension Qualified Code(s): I10 - Essential (primary) hypertension (13) Hypothyroidism Code(s): E03.9 - HYPOTHYROIDISM, UNSPECIFIED Qualifiers: Hypothyroidism type: unspecified Qualified Code(s): E03.9 - Hypothyroidism , unspecified (14) Pleural effusion Code(s): J90 - PLEURAL EFFUSION, NOT ELSEWHERE CLASSIFIED Assessment/Plan Problem List - Problems (1) Acute on chronic diastolic (congestive) heart failure Code(s): I50.33 - ACUTE ON CHRONIC DIASTOLIC (CONGESTIVE) HEART FAILURE Assessment/Plan Acute on Chronic Diastolic Heart Failure UTI Gram Positive Bacteremia r/o Pneumonia Pleural Effusions Sepsis +Troponins likely Demand Ischemia Elevated LFTs CAD s/p CABG Atrial Fibrillation h/o AVR/MVR SSS s/p PPM COPD Hypothyroidism Back pain r/o Paraspinal abscess ?Endocarditis - continue antibiotics per ID - pleural effusions are likely from - continue IV lasix - monitor urine output, creatinine - rate control - aspiration precautions - O2 to keep SpO2 >90% - DVT prophylaxis DR ANGELES
--- NOTE | 2019-08-11 11:55 | PN ---
Progress Note, Physician History of Present Illness: patient stable looks much more awake and alert son in the room - Current Medication List Current Medications: Active Medications Acetaminophen (Tylenol -) 650 mg PO Q6H PRN PRN Reason: Fever Or Pain Last Admin: 08/08/19 22:04 Dose: 650 mg Albuterol Sulfate (Ventolin Hfa Inhaler -) 1 puff IH Q4H PRN PRN Reason: ASTHMA Albuterol Sulfate (Ventolin Hfa Inhaler -) 2 puff IH Q4H PRN PRN Reason: ASTHMA Carvedilol (Coreg -) 6.25 mg PO BID [facility] Last Admin: 08/11/19 10:23 Dose: 6.25 mg Digoxin (Lanoxin -) 0.125 mg PO DAILY [facility] Last Admin: 08/11/19 10:23 Dose: 0.125 mg Diltiazem HCl (Cardizem Cd -) 240 mg PO BID [facility] Last Admin: 08/11/19 10:23 Dose: 240 mg Furosemide (Lasix Injection -) 40 mg IVPUSH DAILY [facility] Last Admin: 08/11/19 10:24 Dose: 40 mg Gabapentin (Neurontin -) 100 mg PO TID [facility] Last Admin: 08/11/19 06:25 Dose: 100 mg Heparin Sodium (Porcine) (Heparin -) 1,000 unit IVPUSH PRN PRN PRN Reason: Heparin Heparin Sodium (Porcine) (Heparin -) 5,000 unit IVPUSH PRN PRN PRN Reason: Heparin Ceftriaxone Sodium 1 gm/ (Dextrose) 50 mls @ 100 mls/hr IVPB DAILY [facility]; Protocol Last Admin: 08/11/19 10:23 Dose: 100 mls/hr Daptomycin 700 mg/ Sodium (Chloride) 100 mls @ 100 mls/hr IVPB Q24H [facility] Last Admin: 08/10/19 15:54 Dose: 100 mls/hr Heparin Sodium (Porcine) 25, (000 unit/ Sodium Chloride) 500 mls @ 20 mls/hr IV TITR [facility]; Protocol Levothyroxine Sodium 100 mcg/ (Levothyroxine Sodium 75 mcg) 175 mcg PO DAILY@ 0700 [facility] Last Admin: 08/11/19 06:25 Dose: 175 mcg Lidocaine (Lidoderm Patch -) 1 patch TP DAILY [facility] Last Admin: 08/11/19 10:24 Dose: 1 patch Miscellaneous (Lidoderm Patch Removal) 1 each MC DAILY@2200 [facility] Last Admin: 08/10/19 21:52 Dose: Not Given Mometasone Furoate (Asmanex 220mcg -) 1 puff IH BID [facility] Last Admin: 08/11/19 10:35 Dose: 1 puff Pantoprazole Sodium (Protonix -) 40 mg PO DAILY [facility] Last Admin: 08/11/19 10:23 Dose: 40 mg Spironolactone (Aldactone -) 25 mg PO DAILY [facility] Last Admin: 08/11/19 10:24 Dose: 25 mg Tiotropium [place] (Spiriva Respimat) 2 puff IH DAILY [facility] Last Admin: 08/11/19 10:36 Dose: 2 puff - Objective Vital Signs: Vital Signs Temperature 99 F 08/11/19 08:52 Pulse Rate 63 08/11/19 10:23 Respiratory Rate 18 08/11/19 08:52 Blood Pressure 138/79 08/11/19 08:52 O2 Sat by Pulse Oximetry (%) 97 08/11/19 08:52 Constitutional: Yes: No Distress, Calm Cardiovascular: Yes: S1, S2, Other (murmur) Respiratory: Yes: Regular, CTA Bilaterally Gastrointestinal: Yes: Normal Bowel Sounds, Soft Neurological: Yes: Alert Psychiatric: Yes: Alert Labs: CBC, BMP 08/11/19 05:40 08/11/19 05:40 INR, PTT INR 1.88 (0.83-1.09) H 08/11/19 08:30 Assessment/Plan A/P Acute Metabolic Encephalopathy Transaminitis with elevated Alk phos COPD SSS s/p PPM placement Atrial fibrillation Hypothyroidism uti gm positive bacteremia plan continue current abx please add rifampin 600 mg daily once cardizem is switched spoke wiht the son rest as per the team
--- NOTE | 2019-08-11 12:12 | PN ---
Progress Note (short form) - Note Progress Note: 78-year-old female with history of coronary artery disease, status post CABG, history of bioprosthetic mitral and aortic valve replacement in 2015, maze procedure, status post permanent pacemaker for sick sinus syndrome, atrial fibrillation, hypertension, hypertensive cardiovascular disease, congestive heart failure, hypothyroidism.admitted with confusion and fever and is currently being treated for urinary sepsis and bacteremia and multiple +ve blood cultures staph epidermidis. Appears more alert, easily arousable. Xray chest reveals bilateral pleural effusions, either related to CHF or hypoproteinemia. ALLERGIES: None reported. Active Medications Acetaminophen (Tylenol -) 650 mg PO Q6H PRN PRN Reason: Fever Or Pain Last Admin: 08/08/19 22:04 Dose: 650 mg Albuterol Sulfate (Ventolin Hfa Inhaler -) 1 puff IH Q4H PRN PRN Reason: ASTHMA Albuterol Sulfate (Ventolin Hfa Inhaler -) 2 puff IH Q4H PRN PRN Reason: ASTHMA Carvedilol (Coreg -) 12.5 mg PO BID [facility] Digoxin (Lanoxin -) 0.125 mg PO DAILY [facility] Last Admin: 08/11/19 10:23 Dose: 0.125 mg Furosemide (Lasix Injection -) 40 mg IVPUSH DAILY [facility] Last Admin: 08/11/19 10:24 Dose: 40 mg Gabapentin (Neurontin -) 100 mg PO TID [facility] Last Admin: 08/11/19 06:25 Dose: 100 mg Heparin Sodium (Porcine) (Heparin -) 1,000 unit IVPUSH PRN PRN PRN Reason: Heparin Heparin Sodium (Porcine) (Heparin -) 5,000 unit IVPUSH PRN PRN PRN Reason: Heparin Ceftriaxone Sodium 1 gm/ (Dextrose) 50 mls @ 100 mls/hr IVPB DAILY [facility]; Protocol Last Admin: 08/11/19 10:23 Dose: 100 mls/hr Daptomycin 700 mg/ Sodium (Chloride) 100 mls @ 100 mls/hr IVPB Q24H [facility] Last Admin: 08/10/19 15:54 Dose: 100 mls/hr Heparin Sodium (Porcine) 25, (000 unit/ Sodium Chloride) 500 mls @ 20 mls/hr IV TITR JO-ANN; Protocol Levothyroxine Sodium 100 mcg/ (Levothyroxine Sodium 75 mcg) 175 mcg PO DAILY@ 0700 [facility] Last Admin: 08/11/19 06:25 Dose: 175 mcg Lidocaine (Lidoderm Patch -) 1 patch TP DAILY [facility] Last Admin: 08/11/19 10:24 Dose: 1 patch Miscellaneous (Lidoderm Patch Removal) 1 each MC DAILY@2200 [facility] Last Admin: 08/10/19 21:52 Dose: Not Given Mometasone Furoate (Asmanex 220mcg -) 1 puff IH BID [facility] Last Admin: 08/11/19 10:35 Dose: 1 puff Pantoprazole Sodium (Protonix -) 40 mg PO DAILY [facility] Last Admin: 08/11/19 10:23 Dose: 40 mg Rifampin (Rifadin -) 600 mg PO DAILY [facility] Spironolactone (Aldactone -) 25 mg PO DAILY [facility] Last Admin: 08/11/19 10:24 Dose: 25 mg Tiotropium [place] (Spiriva Respimat) 2 puff IH DAILY [facility] Last Admin: 08/11/19 10:36 Dose: 2 puff PHYSICAL EXAMINATION:General: 78-year-old female, lethargic, afebrile. Last Vital Signs Temp Pulse Resp BP Pulse Ox 99 F 63 18 138/79 97 08/11/19 08:52 08/11/19 10:23 08/11/19 08:52 08/11/19 08:52 08/11/19 08:52 Neck: Supple, no jugular venous distention, HJR -ve. carotids were 2+, upstrokes were normal, no bruits were heard and no thyromegaly was present. Heart: No heaves or thrills, S1 is variable, S2 was normal, ejection systolic murmur grade II/ was heard at the 2nd right intercostal space, decrescendo Grade II/ systolic murmur was heard at the apexand LSB no diastolic murmur or gallops were heard. Lungs: Clear on auscultation. Abdomen: Soft, obese and nontender. No hepatosplenomegaly or palpable masses were felt. Extremities: No calf tenderness or dependent edema. Pulses were equal. CBC, BMP 08/11/19 05:40 08/11/19 05:40 IMPRESSION: 1. Bilateral pleural effusions, related to hypoproteinemia vs CHF. 2. Coronary artery disease, status post coronary artery bypass grafting. 3. Sepsis vs endocarditis, cannot ruleout PPM lead infection 4. Sick sinus syndrome. Status post permanent pacemaker. 5. 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 6. Status post bioprosthetic aortic valve replacement with mild perivalvular leak(seeTEE report). 7. History of congestive heart failure. 8. Hypertension, hypertensive cardiovascular disease. 9. Acute on chronic left ventricular diastolic dysfunction. 10. Permanent atrial fibrillation. 11. Carotid artery disease. 12. History of bronchial asthma. 13. Hypercholesterolemia. 14. Status post maze procedure. 15. Hypothyroidism, on replacement therapy. RECOMMENDATIONS: 1. Continue with current line of cardiac therapy. 2. Spoke to ID, will continue 8 weeks of IV antibiotics. 3. BNP. Prognosis: Critical. KESHA CHIN M.D.
[2019-08-11] MEDS: HEPARIN - 25,000 UNIT in SODIUM CHLORIDE 495 ML IV SCH ×2 (13:22→22:30)
--- NOTE | 2019-08-11 13:24 | CONSULT ---
Admitting History and Physical - Primary Care Physician PCP: Franck Thornton - Admission History of Present Illness: Per emr- Patient is a 78 y/o female with a history of COPD, afib (off coumadin), HF, CAD , hypothyroidism, pacemaker, sick sinus syndrome, AV and MV replacement who presents for confusion. The patient typically calls her family members once a day. When the patients son had not heard from his mother in a few days they had the police do a wellness check. Patient was found to be confused and was brought to the hospital. Patient denies any complaints but states she needs to urinate. Patient reports she has had UTI's in the past. Per patient family she is very active, lives alone, and takes all her medications. Patient urinates on her own in a toilet. Patient is also compliant with her doctor visits. PMHx of coronary artery disease, status post CABG, history of bioprosthetic mitral and aortic valve replacement in 2014, maze procedure, status post permanent pacemaker for sick sinus syndrome, atrial fibrillation, hypertension, hypertensive cardiovascular disease, HFpEF, hypothyroidism admitted with AMS, found with UTI/bacteremia. Poor PO intake on reg diet.Not chewing her food per WINDER OPERATOR. Selected Entries 08/10/19 08/10/19 08/10/19 05:43 09:00 12:21 Breakfast 75% Lunch Temperature 97.8 F 98.1 F 08/10/19 08/10/19 08/10/19 14:00 18:00 21:08 Breakfast Lunch 25% Temperature 98.3 F 97.6 F 98.4 F 08/11/19 08/11/19 08/11/19 02:00 05:47 08:52 Breakfast Lunch Temperature 100.0 F H 98 F 99 F 08/11/19 12:42 Breakfast 75% Lunch Temperature Laboratory Tests 08/08/19 08/09/19 08/10/19 06:00 06:40 05:48 WBC 15.5 H 13.8 H 14.0 H 08/11/19 05:40 WBC 13.2 H Selected Entries 08/08/19 08/11/19 08/11/19 06:00 02:00 05:47 Breakfast Temperature 100.0 F H 98 F Weight 198 lb 11.2 oz 08/11/19 08/11/19 08/11/19 06:00 08:52 12:42 Breakfast 75% Temperature 99 F Weight 188 lb Laboratory Tests 08/07/19 08/08/19 08/09/19 06:15 06:00 06:40 WBC 14.5 H 15.5 H 13.8 H 08/10/19 08/11/19 05:48 05:40 WBC 14.0 H 13.2 H 08/03/19- neuro AP : Encephalopathy delirium likely from UTI /bacteremia . electrolytes abnl nonfocal exam , CT HD -no acute pathology cont ABX agree with restarting AC , no clear evidence of a new PRINCIPAL ACCOUNT CLERK ischemic event A/P Acute Metabolic Encephalopathy 2/2 to UTI and G+ Bacteremia 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 HFpEF Subendocardial ischemia demand Transaminitis with elevated Alk phos COPD SSS s/p PPM placement Atrial fibrillation Hypothyroidism History Source: Medical Record Limitations to Obtaining History: Clinical Condition - Past Medical History Cardiovascular: Yes: AFIB (with PPM), CAD (s/p CABG), CHF, HTN, Hyperlipdemia, Other (PROSTHETIC HEART VALVES, s/p porcine AVR & MVR, PPM, 07/24 ablation [facility]) Pulmonary: Yes: COPD Gastrointestinal: Yes: Other (colon adenomas, including a 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, cecal AVMs) Heme/Onc: Yes: Cancer (uterine cancer s/p radical resection) Musculoskeletal: Yes: Osteoarthritis Endocrine: Yes: Hypothyroidism - Past Surgical History Past Surgical History: Yes: Arthrosocopy (bilateral knees), Breast Biopsy (left = benign), CABG (x2 w/MAZE and valves), Cholecystectomy (open), Hysterectomy ( radical laparoscopic TAHBSL with lymph node resection 2012), Permanent Pacemaker , Tonsillectomy, Valve Replacement (aortic and mitral, bioprosthetics) - Smoking History Smoking history: Never smoked Have you smoked in the past 12 months: No If you are a former smoker, when did you quit?: 50 years ago - Alcohol/Substance Use Hx Alcohol Use: Yes (wine socially, no abuse) History of Substance Use: reports: None - Social History ADL: Independent 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 Left periventricular chronic lacunar infarct along superior margin of the left basal ganglia. No mass lesion, gross acute infarct or intracranial hemorrhage are identified. CT scan of the cervical spine . IMPRESSION: The alignment is satisfactory. No gross fracture or subluxation is seen. No jumped facets are identified. Moderate degenerative disc disease at C6-C7 level. Uncovertebral hypertrophy moderately narrowing the left foramen at C5-C6 and C6-C7 level.) - General Mental Status: Awake and Alert (Slow to respond, distractible, oriented only to hospital. "29 yo, Oswald"), Forgetful, Vague, Confused, Flat Affect Attention: Mild Impairment, Moderate Impairment Ability to Follow Directions: Fair Head/Neck Control: Fair, Needs Assist - Hearing Hearing: Normal Speech Evaluation - Communication Primary Language: [place]IZ[place] Communication: Yes: Simple Responses - Speech Production Able to Make Needs Known: Yes: Mildly Impaired Intelligibility: Yes: Mildly Impaired - Speech Characteristics Voice Loudness: Mildly Soft/Quiet Voice Pitch: Yes: Normal Voice Phonatory-based Quality: Yes: Normal, Weak Speech Clarity: < 75% Nasal Resonance: Normal - Language/Auditory Comprehension Observation: Comprehends Conversational Speech: Yes (simple,slow), Benefits from Slow Speech: Yes, Benefits from Repetiton: Yes - Language/Verbal Expression Functional Communication Status: Yes: Mildly Impaired - Swallow Evaluation/Bedside Assessment Current Nutritional Intake: Regular, Thin Liquids Oral Secretions: Yes: WFL, Dryness Dentition: Yes: Adequate, Missing Teeth (only front lower teeth. No back teeth. Lower dentures?) Facial Symmetry on Retraction: Symmetrical Jaw Position: Open at Rest Against Resistance Opening: Weak Against Resistance Closing: Weak Pucker Lips: Weak Smile: Weak Lingual Movement: Symmetric, Reduced Protrusion Lingual Speed of Movement: Reduced Lingual Movement Strgth Against Opposition: Reduced Laryngeal Movement: Labored,delay initiation Rate of Intake: Slow/Holding Bolus Size: Small Labial Seal: WFL Chewing: Impaired (limited mastication, oral holding, becomes distracted, forgets to transfer/swallow.) Oral Prep Time: Increased Pocketing: Present Bilaterally Timing of Swallow: Delayed Coughing/Throat Clear: Yes (weak, intermittent) Change in Voice: No Recommendations - Speech Evaluation, Impression/Plan Impression: Pt fully independent premorbidly, per EMR, with acute Metabolic Encephalopathy 2/2 to UTI and G+ Bacteremia. Reported to be improving. Still quite confused, weak, slow to respond, impaired orientation/memory/ insight, quite distractible. Oral-pharyngeal Dysphagia with aspiration risk. - Disposition Discharge to: To be Determined - Dysphagia Impressions/Plan Swallowing Skills: Impaired Dysphagia Impressions: Mild Impairment, Moderate Impairment, Risk of Aspiration *Silent aspiration: cannot be R/O at bedside Dysphagia Treatment Plan: Small Bites, Chin Tuck/Down, Clear Pocket Food, Trial Feedings, Safe Rate, 1/2 tsp. at a time, Elevate HOB during feed Recommendations: Modified Barium Swallow - Recommendations Diet Consistency: Dysphagia Minced Medication Administration: Crushed with applesauce Liquids: Chaires Thick Supplement: Magic Cup, Ensure Pudding, Other (2 ilya HN)
[2019-08-11] MEDS: DAPTOMYCIN 700 MG in SODIUM CHLORIDE 100 ML IVPB SCH (17:44)
[2019-08-11] MEDS ORDERED: WARFARIN NA 2 MG TABLET (UD) PO SCH (18:00)
[2019-08-11] MEDS: CARVEDILOL 12.5 MG TABLET (FP) PO SCH (21:33)
[2019-08-11] MEDS: LIDOCAINE PATCH REMOVAL MC SCH (21:35)
[2019-08-11] MEDS: HEPARIN NA (PORCINE) 5,000 UNITS/ML 1ML VIAL IVPUSH PRN (22:37)
[2019-08-12] MEDS ORDERED: LEVOTHYROXINE NA 100 MCG TABLET (FP) ONE (05:54)
[2019-08-12] MEDS ORDERED: LEVOTHYROXINE NA 75 MCG TABLET (FP) ONE (05:54)
[2019-08-12] MEDS: GABAPENTIN 100 MG CAPSULE (FP) PO SCH ×3 (06:27→20:59)
[2019-08-12] MEDS: LEVOTHYROXINE 100 MCG, LEVOTHYROXINE 75 MCG PO SCH (06:27)
[2019-08-12 07:19] LABS: BASO % 0.5 % (0-2.0); EOS % 0.3 % (0-4.5); HEMATOCRIT 35.8 % (32.4-45.2); LYMPH % 5.1 % (8-40); MCH 29.5 pg (25.7-33.7); MCHC 33.5 g/dl (32.0-36.0); MEAN CELL VOLUME 88.2 fl (80-96); MEAN PLT VOLUME 8.6 fl (7.5-11.1); MONO % 5.1 % (3.8-10.2); PLATELET COUNT 179 K/MM3 (134-434); RBC 4.06 M/mm3 (3.60-5.2); RDW 16.1 % (11.6-15.6); WHITE BLOOD COUNT 12.5 K/mm3 (4.0-10.0)
[2019-08-12 07:52] LABS: INR 1.38 (0.83-1.09); PROTHROMBIN TIME (PATIENT) 16.3 SEC (9.7-13.0)
[2019-08-12 07:54] LABS: ALBUMIN 1.8 g/dl (3.4-5.0); BILIRUBIN,TOTAL 0.6 mg/dL (0.2-1); BLOOD UREA NITROGEN 42.8 mg/dL (7-18); CALCIUM 8.4 mg/dL (8.5-10.1); MAGNESIUM 2.1 mg/dL (1.8-2.4); PHOSPHOROUS 3.4 mg/dL (2.5-4.9); POTASSIUM 3.9 mmol/L (3.5-5.1); TOT PROT 6.4 g/dl (6.4-8.2)
[2019-08-12] MEDS: FUROSEMIDE 40 MG/4 ML INJECTABLE VIAL IVPUSH SCH (10:00)
[2019-08-12] MEDS ORDERED: RIFAMPIN 300 MG CAPSULE PO SCH (10:00)
--- NOTE | 2019-08-12 10:21 | PN ---
Teaching Attending Note Name of Resident: Abram Levy ATTENDING PHYSICIAN STATEMENT I saw and evaluated the patient. I reviewed the resident's note and discussed the case with the resident. I agree with the resident's findings and plan as documented. SUBJECTIVE: Patient has no complaints. OBJECTIVE: Vital Signs Period Temp Pulse Resp BP Sys/Agudelo Pulse Ox Last 24 Hr 97.6 F-98.2 F 62-77 18-20 115-128/53-56 94 HEART: Irregularly irregular, (+) 2/6 SM LUNGS: Decreased BS at both bases ABDOMEN: Soft, non-tender, non-distended, normal BS EXTREMITIES: No edema Laboratory Results - last 24 hr 08/11/19 08/12/19 08/12/19 20:45 06:03 06:03 WBC 12.5 H RBC 4.06 Hgb 12.0 Hct 35.8 MCV 88.2 MCH 29.5 MCHC 33.5 RDW 16.1 H Plt Count 179 MPV 8.6 Absolute Neuts (auto) 11.1 H Neutrophils % 89.0 H Lymphocytes % 5.1 L Monocytes % 5.1 Eosinophils % 0.3 Basophils % 0.5 Nucleated RBC % 0 PT with INR 16.30 H INR 1.38 H PTT (Actin FS) 35.8 Sodium Potassium Chloride Carbon Dioxide Anion Gap BUN Creatinine Est GFR (CKD-EPI)AfAm Est GFR (CKD-EPI)NonAf Random Glucose Calcium Phosphorus Magnesium Total Bilirubin AST ALT Alkaline Phosphatase Total Protein Albumin 08/12/19 06:03 WBC RBC Hgb Hct MCV MCH MCHC RDW Plt Count MPV Absolute Neuts (auto) Neutrophils % Lymphocytes % Monocytes % Eosinophils % Basophils % Nucleated RBC % PT with INR INR PTT (Actin FS) Sodium 137 Potassium 3.9 Chloride 100 Carbon Dioxide 26 Anion Gap 11 BUN 42.8 H Creatinine 1.0 Est GFR (CKD-EPI)AfAm 62.05 Est GFR (CKD-EPI)NonAf 53.54 Random Glucose 120 H Calcium 8.4 L Phosphorus 3.4 Magnesium 2.1 Total Bilirubin 0.6 AST 94 H ALT 117 H Alkaline Phosphatase 238 H Total Protein 6.4 Albumin 1.8 L Current Medications Generic Name Dose Route Start Last Admin Trade Name Freq PRN Reason Stop Dose Admin Acetaminophen 650 mg 08/04/19 18:34 08/08/19 22:04 Tylenol - PO 650 mg Q6H PRN Administration Fever Or Pain Albuterol Sulfate 1 puff 08/01/19 16:34 Ventolin Hfa Inhaler - IH Q4H PRN ASTHMA Albuterol Sulfate 2 puff 08/01/19 16:47 Ventolin Hfa Inhaler - IH Q4H PRN ASTHMA Carvedilol 12.5 mg 08/11/19 11:58 08/11/19 21:33 Coreg - PO 12.5 mg BID JO-ANN Administration Digoxin 0.125 mg 08/02/19 10:00 08/11/19 10:23 Lanoxin - PO 0.125 mg DAILY JO-ANN Administration Furosemide 40 mg 08/04/19 15:00 08/11/19 10:24 Lasix Injection - IVPUSH 40 mg DAILY JO-ANN Administration Gabapentin 100 mg 08/06/19 14:00 08/12/19 06:27 Neurontin - PO 100 mg TID JO-ANN Administration Heparin Sodium (Porcine) 1,000 unit 08/11/19 11:44 Heparin - IVPUSH PRN PRN Heparin Heparin Sodium (Porcine) 5,000 unit 08/11/19 11:44 08/11/19 22:37 Heparin - IVPUSH 5,000 unit PRN PRN Administration Heparin Ceftriaxone Sodium 1 gm/ 50 mls @ 100 mls/hr 08/08/19 14:00 08/11/19 10:23 Dextrose IVPB 100 mls/hr DAILY JO-ANN Administration Protocol Daptomycin 700 mg/ Sodium 100 mls @ 100 mls/hr 08/08/19 15:00 08/11/19 17:44 Chloride IVPB 100 mls/hr Q24H JO-ANN Administration Heparin Sodium (Porcine) 25, 500 mls @ 20 mls/hr 08/11/19 11:45 08/11/19 22: 30 000 unit/ Sodium Chloride IV 1,150 unit/hr TITR JO-ANN 23 mls/hr Administration Protocol 1,000 UNIT/HR Levothyroxine Sodium 100 mcg/ 175 mcg 08/10/19 12:34 08/12/19 06:27 Levothyroxine Sodium 75 mcg PO 175 mcg DAILY@0700 JO-ANN Administration Lidocaine 1 patch 08/04/19 13:30 08/11/19 10:24 Lidoderm Patch - TP 1 patch DAILY JO-ANN Administration Miscellaneous 1 each 08/04/19 22:00 08/11/19 21:35 Lidoderm Patch Removal MC Not Given DAILY@2200 [facility] Mometasone Furoate 1 puff 08/04/19 10:00 08/11/19 21:34 Asmanex 220mcg - IH 1 puff BID JO-ANN Administration Pantoprazole Sodium 40 mg 08/03/19 10:00 08/11/19 10:23 Protonix - PO 40 mg DAILY JO-ANN Administration Rifampin 600 mg 08/12/19 10:00 Rifadin - PO DAILY JO-ANN Spironolactone 25 mg 08/02/19 10:00 08/11/19 10:24 Aldactone - PO 25 mg DAILY JO-ANN Administration Tiotropium [place] 2 puff 08/02/19 10:00 08/11/19 10:36 Spiriva Respimat IH 2 puff DAILY JO-ANN Administration ASSESSMENT AND PLAN: This is a 78 year old woman with a history of CAD, CABG, bioprosthetic mitral and aortic valve replacements, permanent atrial fib, SSS, maze procedure, pacemaker, HTN, hyperlipidemia, chronic diastolic heart failure, hypothyroidism who presented to the ED with altered mental status. 1. Acute metabolic encephalopathy secondary sepsis from E. coli UTI, Staph epidermidis bacteremia, possible MV endocarditis - Mental status improving - Blood cultures 08/10 negative after 24 hours - Continue ceftriaxone, Daptomycin, Rifampin 2. Acute on chronic diastolic heart failure - Continue Lasix, Aldactone 3. Demand ischemia 4. Hepatic transaminitis 5. CAD, history of CABG 6. History of bioprosthetic MV/AV replacement 7. Permanent atrial fibrillation, SSS, history of maze procedure, history of pacemaker - Continue Digoxin, Coreg, Coumadin/heparin IV drip 8. HTN - Continue Coreg, Lasix, Aldactone 9. Hyperlipidemia 10.Hypothyroidism - Continue Synthroid 11. COPD - Stable - Continue Asmanex, Spiriva, albuterol as needed 12. L1 anterolisthesis with moderate spinal stenosis - Continue Neurontin, Lidoderm patch 13. DVT prophylaxis - On heparin IV
[2019-08-12] MEDS: MOMETASONE FUROATE 220 MCG/IH INHALER IH SCH ×2 (10:40→22:49)
[2019-08-12] MEDS ORDERED: PT OWN MED DRAWER 7, Y5N ONE (10:54)
[2019-08-12] MEDS ORDERED: cefTRIAXone SODIUM 1 GM VIAL ONE (10:54)
[2019-08-12] MEDS ORDERED: DEXTROSE 5%-WATER - 50 ML IVPB ONE (10:54)
[2019-08-12] MEDS: PANTOPRAZOLE 40 MG TABLET (FP) PO SCH (10:56)
[2019-08-12] MEDS: CEFTRIAXONE 1 GM in DEXTROSE 5%-WATER - 50 ML IVPB SCH (10:56)
[2019-08-12] MEDS: LIDOCAINE 5% TOPICAL PATCH TP SCH (10:57)
[2019-08-12] MEDS: CARVEDILOL 12.5 MG TABLET (FP) PO SCH ×2 (10:57→20:59)
[2019-08-12] MEDS: SPIRONOLACTONE 25 MG TABLET (FP) PO SCH (10:57)
[2019-08-12] MEDS: DIGOXIN 0.125 MG TABLET (FP) PO SCH (10:58)
[2019-08-12] MEDS: TIOTROPIUM BROMIDE 2.5 MCG (SPIRIVA) RESPIMAT INHALER IH SCH (10:58)
--- NOTE | 2019-08-12 11:29 | PN ---
Progress Note, TIMBER HARVESTER OPERATOR - Note Progress Note: Selected Entries 08/11/19 08/12/19 08/12/19 19:50 01:21 05:48 Breakfast Supper 50% Temperature 98.2 F 98.2 F 08/12/19 08/12/19 08:00 10:00 Breakfast 100% Supper Temperature 98.6 F Laboratory Tests 08/11/19 08/12/19 05:40 06:03 WBC 13.[address] head 08/01 noted. Neuro 08/03 noted. Confused. Not at baseline cognitively/functionally although she is improving. Rehab vs STR Tolerating Dys chopped/nectar better than previous diet. MBS to r/o aspiration?
--- NOTE | 2019-08-12 12:02 | PN ---
Progress Note, Physician History of Present Illness: stale improving blood cx now negative - Current Medication List Current Medications: Active Medications Acetaminophen (Tylenol -) 650 mg PO Q6H PRN PRN Reason: Fever Or Pain Last Admin: 08/08/19 22:04 Dose: 650 mg Albuterol Sulfate (Ventolin Hfa Inhaler -) 1 puff IH Q4H PRN PRN Reason: ASTHMA Albuterol Sulfate (Ventolin Hfa Inhaler -) 2 puff IH Q4H PRN PRN Reason: ASTHMA Carvedilol (Coreg -) 12.5 mg PO BID [facility] Last Admin: 08/12/19 10:57 Dose: 12.5 mg Digoxin (Lanoxin -) 0.125 mg PO DAILY [facility] Last Admin: 08/12/19 10:58 Dose: 0.125 mg Furosemide (Lasix Injection -) 40 mg IVPUSH DAILY [facility] Last Admin: 08/12/19 10:00 Dose: 40 mg Gabapentin (Neurontin -) 100 mg PO TID [facility] Last Admin: 08/12/19 06:27 Dose: 100 mg Heparin Sodium (Porcine) (Heparin -) 1,000 unit IVPUSH PRN PRN PRN Reason: Heparin Heparin Sodium (Porcine) (Heparin -) 5,000 unit IVPUSH PRN PRN PRN Reason: Heparin Last Admin: 08/11/19 22:37 Dose: 5,000 unit Ceftriaxone Sodium 1 gm/ (Dextrose) 50 mls @ 100 mls/hr IVPB DAILY [facility]; Protocol Last Admin: 08/12/19 10:56 Dose: 100 mls/hr Daptomycin 700 mg/ Sodium (Chloride) 100 mls @ 100 mls/hr IVPB Q24H [facility] Last Admin: 08/11/19 17:44 Dose: 100 mls/hr Heparin Sodium (Porcine) 25, (000 unit/ Sodium Chloride) 500 mls @ 20 mls/hr IV TITR JO-ANN; Protocol Last Admin: 08/11/19 22:30 Dose: 1,150 unit/hr, 23 mls/hr Levothyroxine Sodium 100 mcg/ (Levothyroxine Sodium 75 mcg) 175 mcg PO DAILY@ 0700 [facility] Last Admin: 08/12/19 06:27 Dose: 175 mcg Lidocaine (Lidoderm Patch -) 1 patch TP DAILY [facility] Last Admin: 08/12/19 10:57 Dose: 1 patch Miscellaneous (Lidoderm Patch Removal) 1 each MC DAILY@2200 [facility] Last Admin: 08/11/19 21:35 Dose: Not Given Mometasone Furoate (Asmanex 220mcg -) 1 puff IH BID [facility] Last Admin: 08/12/19 10:40 Dose: 1 puff Pantoprazole Sodium (Protonix -) 40 mg PO DAILY [facility] Last Admin: 08/12/19 10:56 Dose: 40 mg Rifampin (Rifadin -) 600 mg PO DAILY [facility] Last Admin: 08/12/19 10:56 Dose: 600 mg Spironolactone (Aldactone -) 25 mg PO DAILY [facility] Last Admin: 08/12/19 10:57 Dose: 25 mg Tiotropium [place] (Spiriva Respimat) 2 puff IH DAILY [facility] Last Admin: 08/12/19 10:58 Dose: 2 puff - Objective Vital Signs: Vital Signs Temperature 98.6 F 08/12/19 08:00 Pulse Rate 64 08/12/19 10:58 Respiratory Rate 20 08/12/19 08:00 Blood Pressure 131/83 08/12/19 08:00 O2 Sat by Pulse Oximetry (%) 96 08/12/19 08:00 Constitutional: Yes: No Distress, Calm Cardiovascular: Yes: S1, S2 Respiratory: Yes: Regular, CTA Bilaterally, On Nasal O2 Gastrointestinal: Yes: Normal Bowel Sounds, Soft Musculoskeletal: Yes: WNL Extremities: Yes: WNL Neurological: Yes: Alert, Oriented Psychiatric: Yes: Alert, Oriented Labs: CBC, BMP 08/12/19 06:03 08/12/19 06:03 INR, PTT INR 1.38 (0.83-1.09) H 08/12/19 06:03 Assessment/Plan A/P Acute Metabolic Encephalopathy Transaminitis with elevated Alk phos COPD SSS s/p PPM placement Atrial fibrillation Hypothyroidism uti gm positive bacteremia plan continue current abx can change rifampin to oral 300 mg po bid rest as per the team
--- NOTE | 2019-08-12 12:03 | PN ---
Progress Note (short form) - Note Progress Note: 78-year-old female with history of coronary artery disease, status post CABG, history of bioprosthetic mitral and aortic valve replacement in 2015, maze procedure, status post permanent pacemaker for sick sinus syndrome, atrial fibrillation, hypertension, hypertensive cardiovascular disease, congestive heart failure, hypothyroidism.admitted with confusion and fever and is currently being treated for urinary sepsis and bacteremia and multiple +ve blood cultures staph epidermidis. Appears more alert, easily arousable. Xray chest reveals bilateral pleural effusions, either related to CHF or hypoproteinemia. ALLERGIES: None reported. Active Medications Acetaminophen (Tylenol -) 650 mg PO Q6H PRN PRN Reason: Fever Or Pain Last Admin: 08/08/19 22:04 Dose: 650 mg Albuterol Sulfate (Ventolin Hfa Inhaler -) 1 puff IH Q4H PRN PRN Reason: ASTHMA Albuterol Sulfate (Ventolin Hfa Inhaler -) 2 puff IH Q4H PRN PRN Reason: ASTHMA Carvedilol (Coreg -) 12.5 mg PO BID [facility] Last Admin: 08/12/19 10:57 Dose: 12.5 mg Digoxin (Lanoxin -) 0.125 mg PO DAILY [facility] Last Admin: 08/12/19 10:58 Dose: 0.125 mg Furosemide (Lasix Injection -) 40 mg IVPUSH DAILY [facility] Last Admin: 08/12/19 10:00 Dose: 40 mg Gabapentin (Neurontin -) 100 mg PO TID [facility] Last Admin: 08/12/19 06:27 Dose: 100 mg Heparin Sodium (Porcine) (Heparin -) 1,000 unit IVPUSH PRN PRN PRN Reason: Heparin Heparin Sodium (Porcine) (Heparin -) 5,000 unit IVPUSH PRN PRN PRN Reason: Heparin Last Admin: 08/11/19 22:37 Dose: 5,000 unit Ceftriaxone Sodium 1 gm/ (Dextrose) 50 mls @ 100 mls/hr IVPB DAILY [facility]; Protocol Last Admin: 08/12/19 10:56 Dose: 100 mls/hr Daptomycin 700 mg/ Sodium (Chloride) 100 mls @ 100 mls/hr IVPB Q24H JO-ANN Last Admin: 08/11/19 17:44 Dose: 100 mls/hr Heparin Sodium (Porcine) 25, (000 unit/ Sodium Chloride) 500 mls @ 20 mls/hr IV TITR JO-ANN; Protocol Last Admin: 08/11/19 22:30 Dose: 1,150 unit/hr, 23 mls/hr Levothyroxine Sodium 100 mcg/ (Levothyroxine Sodium 75 mcg) 175 mcg PO DAILY@ 0700 [facility] Last Admin: 08/12/19 06:27 Dose: 175 mcg Lidocaine (Lidoderm Patch -) 1 patch TP DAILY [facility] Last Admin: 08/12/19 10:57 Dose: 1 patch Miscellaneous (Lidoderm Patch Removal) 1 each MC DAILY@2200 [facility] Last Admin: 08/11/19 21:35 Dose: Not Given Mometasone Furoate (Asmanex 220mcg -) 1 puff IH BID [facility] Last Admin: 08/12/19 10:40 Dose: 1 puff Pantoprazole Sodium (Protonix -) 40 mg PO DAILY [facility] Last Admin: 08/12/19 10:56 Dose: 40 mg Rifampin (Rifadin -) 600 mg PO DAILY [facility] Last Admin: 08/12/19 10:56 Dose: 600 mg Spironolactone (Aldactone -) 25 mg PO DAILY [facility] Last Admin: 08/12/19 10:57 Dose: 25 mg Tiotropium [place] (Spiriva Respimat) 2 puff IH DAILY [facility] Last Admin: 08/12/19 10:58 Dose: 2 puff PHYSICAL EXAMINATION:General: 78-year-old female, lethargic, afebrile. Last Vital Signs Temp Pulse Resp BP Pulse Ox 98.6 F 64 20 131/83 96 08/12/19 08:00 08/12/19 10:58 08/12/19 08:00 08/12/19 08:00 08/12/19 08:00 Neck: Supple, no jugular venous distention, HJR -ve. carotids were 2+, upstrokes were normal, no bruits were heard and no thyromegaly was present. Heart: No heaves or thrills, S1 is variable, S2 was normal, ejection systolic murmur grade II/ was heard at the 2nd right intercostal space, decrescendo Grade II/ systolic murmur was heard at the apexand LSB no diastolic murmur or gallops were heard. Lungs: Clear on auscultation. Abdomen: Soft, obese and nontender. No hepatosplenomegaly or palpable masses were felt. Extremities: No calf tenderness or dependent edema. Pulses were equal. CBC, BMP 08/12/19 06:03 08/12/19 06:03 IMPRESSION: 1. Bilateral pleural effusions, related to hypoproteinemia vs CHF. 2. Coronary artery disease, status post coronary artery bypass grafting. 3. Sepsis vs endocarditis, cannot ruleout PPM lead infection 4. Sick sinus syndrome. Status post permanent pacemaker. 5. 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 6. Status post bioprosthetic aortic valve replacement with mild perivalvular leak(seeTEE report). 7. History of congestive heart failure. 8. Hypertension, hypertensive cardiovascular disease. 9. Acute on chronic left ventricular diastolic dysfunction. 10. Permanent atrial fibrillation. 11. Carotid artery disease. 12. History of bronchial asthma. 13. Hypercholesterolemia. 14. Status post maze procedure. 15. Hypothyroidism, on replacement therapy. RECOMMENDATIONS: 1. Continue with current line of cardiac therapy. 2. Spoke to ID, will continue 8 weeks of IV antibiotics. 3. May need extra lasix. Prognosis: Critical. KESHA CHIN M.D.
--- NOTE | 2019-08-12 12:46 | PN ---
Progress Note (short form) - Note Progress Note: PULMONARY DROWSY BUT AROUSABLE AFEBRILE/SPO2 96% 3L/M NC Eyes: ANICTERIC HENT: Yes: WNL Cardiovascular: Yes: Pulse Irregular, S1, S2 Respiratory: Yes: Diminished (POOR INSPIRATORY EFFORT) Gastrointestinal: Yes: Normal Bowel Sounds, Soft Extremities: Yes: WNL Edema: 1-2 + LOWER EXT Labs: REVIEWED - ....Imaging Chest X-ray: Report Reviewed, Image Reviewed X-ray: Report Reviewed (BILATERAL CONGESTION ,EFFUSIONS) Acute on Chronic Diastolic Heart Failure ?Prosthetic valve endocarditis UTI Gram Positive Staph Bacteremia r/o Pneumonia Pleural Effusions Sepsis +Troponins likely Demand Ischemia Elevated LFTs CAD s/p CABG Atrial Fibrillation h/o AVR/MVR SSS s/p PPM COPD Hypothyroidism - antibiotics per ID - continue IV lasix - monitor urine output, creatinine - rate control - aspiration precautions - O2 to keep SpO2 >90% - DVT prophylaxis - Cardio follow up Soheila ALMANZA MD
[2019-08-12] MEDS: HEPARIN - 25,000 UNIT in SODIUM CHLORIDE 495 ML IV SCH (13:21)
[2019-08-12] MEDS: HEPARIN NA (PORCINE) 5,000 UNITS/ML 1ML VIAL IVPUSH PRN ×2 (13:22→22:45)
[2019-08-12] MEDS: DAPTOMYCIN 700 MG in SODIUM CHLORIDE 100 ML IVPB SCH (15:25)
--- NOTE | 2019-08-12 15:43 | PN ---
Progress Note (short form) - Note Progress Note: HPI: No events noted overnight. Pt awake today. No complaints of pain PE: Vital Signs Temperature 98.5 F 08/12/19 14:00 Pulse Rate 61 08/12/19 14:00 Respiratory Rate 20 08/12/19 14:00 Blood Pressure 132/67 08/12/19 14:00 O2 Sat by Pulse Oximetry (%) 96 08/12/19 08:00 Gen: NAD, Awake, alert, oriented x2 HEENT: NC/AT, CHRISTY, MMM LUNGS: Diminished sounds at bases due to poor effort. no wheezes, 2LNC CARD: Irregularly irregular with 3/6 systolic murmur ABD: Soft Nt/ND, normoactive BS, no hepatomegaly EXT: 2+ DP pulses, no peripheral edema noted CBC, BMP 08/12/19 06:03 08/12/19 06:03 Hepatic Panel Total Bilirubin 0.6 mg/dL (0.2-1) 08/12/19 06:03 Direct Bilirubin 0.5 mg/dL (0.0-0.2) H 08/09/19 06:40 AST 94 U/L (15-37) H 08/12/19 06:03 ALT 117 U/L (13-61) H 08/12/19 06:03 Alkaline Phosphatase 238 U/L (45-117) H 08/12/19 06:03 Albumin 1.8 g/dl (3.4-5.0) L 08/12/19 06:03 Active Medications Acetaminophen (Tylenol -) 650 mg PO Q6H PRN PRN Reason: Fever Or Pain Last Admin: 08/08/19 22:04 Dose: 650 mg Albuterol Sulfate (Ventolin Hfa Inhaler -) 1 puff IH Q4H PRN PRN Reason: ASTHMA Albuterol Sulfate (Ventolin Hfa Inhaler -) 2 puff IH Q4H PRN PRN Reason: ASTHMA Carvedilol (Coreg -) 12.5 mg PO BID [facility] Last Admin: 08/12/19 10:57 Dose: 12.5 mg Digoxin (Lanoxin -) 0.125 mg PO DAILY [facility] Last Admin: 08/12/19 10:58 Dose: 0.125 mg Furosemide (Lasix Injection -) 40 mg IVPUSH DAILY [facility] Last Admin: 08/12/19 10:00 Dose: 40 mg Gabapentin (Neurontin -) 100 mg PO TID [facility] Last Admin: 08/12/19 06:27 Dose: 100 mg Heparin Sodium (Porcine) (Heparin -) 1,000 unit IVPUSH PRN PRN PRN Reason: Heparin Heparin Sodium (Porcine) (Heparin -) 5,000 unit IVPUSH PRN PRN PRN Reason: Heparin Last Admin: 08/12/19 13:22 Dose: 5,000 unit Ceftriaxone Sodium 1 gm/ (Dextrose) 50 mls @ 100 mls/hr IVPB DAILY [facility]; Protocol Last Admin: 08/12/19 10:56 Dose: 100 mls/hr Daptomycin 700 mg/ Sodium (Chloride) 100 mls @ 100 mls/hr IVPB Q24H [facility] Last Admin: 08/12/19 15:25 Dose: 100 mls/hr Heparin Sodium (Porcine) 25, (000 unit/ Sodium Chloride) 500 mls @ 20 mls/hr IV TITR [facility]; Protocol Last Admin: 08/12/19 13:21 Dose: 1,300 unit/hr, 26 mls/hr Levothyroxine Sodium 100 mcg/ (Levothyroxine Sodium 75 mcg) 175 mcg PO DAILY@ 0700 [facility] Last Admin: 08/12/19 06:27 Dose: 175 mcg Lidocaine (Lidoderm Patch -) 1 patch TP DAILY [facility] Last Admin: 08/12/19 10:57 Dose: 1 patch Miscellaneous (Lidoderm Patch Removal) 1 each MC DAILY@2200 [facility] Last Admin: 08/11/19 21:35 Dose: Not Given Mometasone Furoate (Asmanex 220mcg -) 1 puff IH BID [facility] Last Admin: 08/12/19 10:40 Dose: 1 puff Pantoprazole Sodium (Protonix -) 40 mg PO DAILY [facility] Last Admin: 08/12/19 10:56 Dose: 40 mg Rifampin (Rifadin -) 300 mg PO BID [facility] Spironolactone (Aldactone -) 25 mg PO DAILY [facility] Last Admin: 08/12/19 10:57 Dose: 25 mg Tiotropium [place] (Spiriva Respimat) 2 puff IH DAILY [facility] Last Admin: 08/12/19 10:58 Dose: 2 puff Microbiology 08/08/19 13:12 Blood - Peripheral Venous Blood Culture - Preliminary NO GROWTH OBTAINED AFTER 96 HOURS, INCUBATION TO CONTINUE FOR 1 DAYS. 08/10/19 12:22 Blood - Peripheral Venous Blood Culture - Preliminary NO GROWTH OBTAINED AFTER 48 HOURS, INCUBATION TO CONTINUE FOR 3 DAYS. 08/10/19 12:16 Blood - Peripheral Venous Blood Culture - Preliminary NO GROWTH OBTAINED AFTER 48 HOURS, INCUBATION TO CONTINUE FOR 3 DAYS. 08/08/19 13:17 Blood - Peripheral Venous Blood Culture - Final Staphylococcus Epidermidis 08/05/19 14:30 Blood - Peripheral Venous Blood Culture - Final Staphylococcus Epidermidis 08/05/19 14:30 Blood - Peripheral Venous Blood Culture - Final Staphylococcus Epidermidis 08/03/19 12:15 Blood - Peripheral Venous Blood Culture - Final Staphylococcus Epidermidis 08/03/19 12:07 Blood - Peripheral Venous Blood Culture - Final Staphylococcus Epidermidis 08/01/19 11:58 Blood - Peripheral Venous Blood Culture - Final Staphylococcus Epidermidis 08/01/19 11:58 Blood - Peripheral Venous Blood Culture - Final Staphylococcus Epidermidis 08/01/19 11:38 Urine - Urine Clean Catch Urine Culture - Final Escherichia Coli Diphtheroid/Corynebacterium A/P Acute Metabolic Encephalopathy 2/2 to UTI and G+ Bacteremia 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 HFpEF Subendocardial ischemia demand Transaminitis with elevated Alk phos COPD SSS s/p PPM placement Atrial fibrillation Hypothyroidism --JANICE reviewed: Mitral bioprosthetic valv 0.8cm without functional decline of valve. No vegetations on pacer lead or aortic bioprostethic --Blood cultures cleared! --Continue Daptomycin day 4 (total ABX day 11) --Continue Rocephin daily --Change Rifampin 300mg BID PO starting tomorrow --Continue Afib rate control and AC medications; elevated HR noted on telemetry during febrile episodes: --Coreg 6.25mg BID PO --Cardizem 240mg BID --Digoxin 0.125mg PO daily --Heparin gtt to continue --Continue Aldactone 25mg qdaily due to hx of HFpEF --Continue Synthroid 175mcg qdaily --Appreciated all financial services consultant recommendations FEN: Fluids - None Electrolyte abnormalities: None today Nutrition: Sodium controlled PPX: DVT - On warfarin GI - Ranitidine BID Dispo: awaiting Cx clearance Case discussed with Dr. Norma Levy, DO - IM PGY-3
--- NOTE | 2019-08-12 16:12 | PN ---
Progress Note (short form) - Note Progress Note: NEUROSURGERY On daptomycin and ceftriaxone PE: 98.6 VSS A little sleepy but no complaint HEENT- NC/AT; Neck- supple; Cor- Irreg; Chest- decreased BS at bases; Abd- benign; Ext- no sign of DVT CN- intact; Motor- 4+ B UE/LE except B IP 4/5 pain limited; Sensation- intact LT ; DTR- hyporeflexic Blood culture- MRSE; repeat blood culture + from 08-03, and 08-05 BC 2/2 MRSE l, repeat from 08-08 + 1/2 MRSE; repeat from 08-10 negative to date Chronic lumbar spine pathology including L4-5 spondylolisthesis and L1-2 calcified disc/bridging osteophytes with resultant stenosis though no obvious sign of osteomyelitis or discitis Ongoing MRSE bateremia- ID f/u and tx On Neurontin 100 mg tid for pain Mobilize/PT/OOB DVT prophylaxis
[2019-08-12] MEDS: ACETAMINOPHEN 325 MG TABLET (FP) PO PRN (17:02)
[2019-08-12] MEDS: LIDOCAINE PATCH REMOVAL MC SCH (20:59)
[2019-08-13 05:28] LABS: HEMATOCRIT 34.8 % (32.4-45.2); HEMOGLOBIN 11.7 GM/dL (10.7-15.3); MCH 29.7 pg (25.7-33.7); MCHC 33.6 g/dl (32.0-36.0); MEAN CELL VOLUME 88.2 fl (80-96); MEAN PLT VOLUME 8.1 fl (7.5-11.1); PLATELET COUNT 138 K/MM3 (134-434); RBC 3.94 M/mm3 (3.60-5.2); RDW 16.2 % (11.6-15.6); WHITE BLOOD COUNT 13.8 K/mm3 (4.0-10.0)
[2019-08-13 05:58] LABS: ALBUMIN 1.7 g/dl (3.4-5.0); BILIRUBIN,TOTAL 1.4 mg/dL (0.2-1); BLOOD UREA NITROGEN 39.2 mg/dL (7-18); CALCIUM 8.2 mg/dL (8.5-10.1); CREATININE 1.1 mg/dL (0.55-1.3); MAGNESIUM 1.7 mg/dL (1.8-2.4); PHOSPHOROUS 2.9 mg/dL (2.5-4.9); POTASSIUM 4.1 mmol/L (3.5-5.1); TOT PROT 6.2 g/dl (6.4-8.2)
[2019-08-13] MEDS ORDERED: LEVOTHYROXINE NA 100 MCG TABLET (FP) ONE (06:01)
[2019-08-13] MEDS ORDERED: LEVOTHYROXINE NA 75 MCG TABLET (FP) ONE (06:01)
[2019-08-13] MEDS: LEVOTHYROXINE 100 MCG, LEVOTHYROXINE 75 MCG PO SCH (06:05)
[2019-08-13] MEDS: GABAPENTIN 100 MG CAPSULE (FP) PO SCH ×3 (06:06→22:22)
[2019-08-13] MEDS: HEPARIN NA (PORCINE) 5,000 UNITS/ML 1ML VIAL IVPUSH PRN ×3 (07:47→22:19)
--- NOTE | 2019-08-13 09:19 | PN ---
Progress Note (short form) - Note Progress Note: NEUROSURGERY On daptomycin and ceftriaxone PE: 98.6 VSS A little sleepy but arousable No new complaint HEENT- NC/AT; Neck- supple; Cor- Irreg; Chest- decreased BS at bases; Abd- benign; Ext- no sign of DVT CN- intact; Motor- 4+ B UE/LE except B IP 4/5 pain limited; Sensation- intact LT ; DTR- hyporeflexic WBC 13.8 Blood culture- MRSE; repeat blood culture + from 08-03, and 08-05 BC 2/2 MRSE l, repeat from 08-08 + 1/2 MRSE; repeat from 08-10 negative to date Chronic lumbar spine pathology including L4-5 spondylolisthesis and L1-2 calcified disc/bridging osteophytes with resultant stenosis without obvious sign of osteomyelitis or discitis Ongoing MRSE bateremia- ID f/u and tx Mobilize/PT/OOB DVT prophylaxis Neurologically stable, will sign off, reconsult prn
--- NOTE | 2019-08-13 09:20 | PN ---
Progress Note, Physician History of Present Illness: lethargic but awake cx negative so far - Current Medication List Current Medications: Active Medications Acetaminophen (Tylenol -) 650 mg PO Q6H PRN PRN Reason: Fever Or Pain Last Admin: 08/12/19 17:02 Dose: 650 mg Albuterol Sulfate (Ventolin Hfa Inhaler -) 1 puff IH Q4H PRN PRN Reason: ASTHMA Albuterol Sulfate (Ventolin Hfa Inhaler -) 2 puff IH Q4H PRN PRN Reason: ASTHMA Carvedilol (Coreg -) 12.5 mg PO BID [facility] Last Admin: 08/12/19 20:59 Dose: 12.5 mg Digoxin (Lanoxin -) 0.125 mg PO DAILY [facility] Last Admin: 08/12/19 10:58 Dose: 0.125 mg Furosemide (Lasix Injection -) 40 mg IVPUSH DAILY [facility] Last Admin: 08/12/19 10:00 Dose: 40 mg Gabapentin (Neurontin -) 100 mg PO TID [facility] Last Admin: 08/13/19 06:06 Dose: 100 mg Heparin Sodium (Porcine) (Heparin -) 1,000 unit IVPUSH PRN PRN PRN Reason: Heparin Last Admin: 08/13/19 07:47 Dose: 1,000 unit Heparin Sodium (Porcine) (Heparin -) 5,000 unit IVPUSH PRN PRN PRN Reason: Heparin Last Admin: 08/12/19 13:22 Dose: 5,000 unit Ceftriaxone Sodium 1 gm/ (Dextrose) 50 mls @ 100 mls/hr IVPB DAILY [facility]; Protocol Last Admin: 08/12/19 10:56 Dose: 100 mls/hr Daptomycin 700 mg/ Sodium (Chloride) 100 mls @ 100 mls/hr IVPB Q24H JO-ANN Last Admin: 08/12/19 15:25 Dose: 100 mls/hr Heparin Sodium (Porcine) 25, (000 unit/ Sodium Chloride) 500 mls @ 20 mls/hr IV TITR [facility]; Protocol Last Titration: 08/13/19 07:47 Dose: 1,500 unit/hr, 30 mls/hr Levothyroxine Sodium 100 mcg/ (Levothyroxine Sodium 75 mcg) 175 mcg PO DAILY@ 0700 [facility] Last Admin: 08/13/19 06:05 Dose: 175 mcg Lidocaine (Lidoderm Patch -) 1 patch TP DAILY [facility] Last Admin: 08/12/19 10:57 Dose: 1 patch Miscellaneous (Lidoderm Patch Removal) 1 each MC DAILY@2200 [facility] Last Admin: 08/12/19 20:59 Dose: Not Given Mometasone Furoate (Asmanex 220mcg -) 1 puff IH BID [facility] Last Admin: 08/12/19 22:49 Dose: Not Given Pantoprazole Sodium (Protonix -) 40 mg PO DAILY [facility] Last Admin: 08/12/19 10:56 Dose: 40 mg Rifampin (Rifadin -) 300 mg PO BID [facility] Spironolactone (Aldactone -) 25 mg PO DAILY [facility] Last Admin: 08/12/19 10:57 Dose: 25 mg Tiotropium [place] (Spiriva Respimat) 2 puff IH DAILY [facility] Last Admin: 08/12/19 10:58 Dose: 2 puff - Objective Vital Signs: Vital Signs Temperature 98.9 F 08/13/19 05:00 Pulse Rate 55 L 08/13/19 05:00 Respiratory Rate 20 08/13/19 05:00 Blood Pressure 131/62 08/13/19 05:00 O2 Sat by Pulse Oximetry (%) 96 08/12/19 21:00 Constitutional: Yes: No Distress, Calm Cardiovascular: Yes: Murmur, S1, S2 Respiratory: Yes: Regular, CTA Bilaterally Gastrointestinal: Yes: Normal Bowel Sounds, Soft Musculoskeletal: Yes: WNL Extremities: Yes: WNL Neurological: Yes: Lethargy, Other Labs: CBC, BMP 08/13/19 05:11 08/13/19 05:11 INR, PTT INR 1.38 (0.83-1.09) H 08/12/19 06:03 Assessment/Plan A/P Acute Metabolic Encephalopathy Transaminitis with elevated Alk phos COPD SSS s/p PPM placement Atrial fibrillation Hypothyroidism uti gm positive bacteremia plan continue current abx monitor wbc fevers rest as per the team
--- NOTE | 2019-08-13 09:49 | PN ---
Physical Exam: SUBJECTIVE: Patient seen and examined. She is sleeping but arousable. She is confused. She appears comfortable. OBJECTIVE: Vital Signs Period Temp Pulse Resp BP Sys/Agudelo Pulse Ox Last 24 Hr 97.5 F-101.9 F 55-64 18-20 110-132/56-67 96-97 GENERAL: The patient is awake, alert, and confused, in no acute distress. LUNGS: Breath sounds equal, clear to auscultation bilaterally, no wheezes, no crackles, no accessory muscle use. HEART: Regular rate and rhythm, S1, S2 without murmur, rub or gallop. ABDOMEN: Soft, nontender, nondistended, normoactive bowel sounds, no guarding, no rebound, no hepatosplenomegaly, no masses. EXTREMITIES: 2+ pulses, warm, well-perfused, no edema. Laboratory Results - last 24 hr 08/12/19 08/12/19 08/12/19 12:05 20:30 21:09 WBC RBC Hgb Hct MCV MCH MCHC RDW Plt Count MPV PTT (Actin FS) 33.2 43.1 H Sodium Potassium Chloride Carbon Dioxide Anion Gap BUN Creatinine Est GFR (CKD-EPI)AfAm Est GFR (CKD-EPI)NonAf POC Glucometer 163 Random Glucose Calcium Phosphorus Magnesium Total Bilirubin AST ALT Alkaline Phosphatase Total Protein Albumin 08/13/19 08/13/19 08/13/19 05:11 05:11 05:11 WBC 13.8 H RBC 3.94 Hgb 11.7 Hct 34.8 MCV 88.2 MCH 29.7 MCHC 33.6 RDW 16.2 H Plt Count 138 D MPV 8.1 PTT (Actin FS) 40.5 H Sodium 138 Potassium 4.1 Chloride 102 Carbon Dioxide 26 Anion Gap 10 BUN 39.2 H Creatinine 1.1 Est GFR (CKD-EPI)AfAm 55.30 Est GFR (CKD-EPI)NonAf 47.71 POC Glucometer Random Glucose 127 H Calcium 8.2 L Phosphorus 2.9 Magnesium 1.7 L Total Bilirubin 1.4 H AST 92 H ALT 126 H Alkaline Phosphatase 257 H Total Protein 6.2 L Albumin 1.7 L Active Medications Generic Name Dose Route Start Last Admin Trade Name Freq PRN Reason Stop Dose Admin Acetaminophen 650 mg 08/04/19 18:34 08/12/19 17:02 Tylenol - PO 650 mg Q6H PRN Administration Fever Or Pain Albuterol Sulfate 1 puff 08/01/19 16:34 Ventolin Hfa Inhaler - IH Q4H PRN ASTHMA Albuterol Sulfate 2 puff 08/01/19 16:47 Ventolin Hfa Inhaler - IH Q4H PRN ASTHMA Carvedilol 12.5 mg 08/11/19 11:58 08/12/19 20:59 Coreg - PO 12.5 mg BID JO-ANN Administration Digoxin 0.125 mg 08/02/19 10:00 08/12/19 10:58 Lanoxin - PO 0.125 mg DAILY JO-ANN Administration Furosemide 40 mg 08/04/19 15:00 08/12/19 10:00 Lasix Injection - IVPUSH 40 mg DAILY JO-ANN Administration Gabapentin 100 mg 08/06/19 14:00 08/13/19 06:06 Neurontin - PO 100 mg TID JO-ANN Administration Heparin Sodium (Porcine) 1,000 unit 08/11/19 11:44 08/13/19 07:47 Heparin - IVPUSH 1,000 unit PRN PRN Administration Heparin Heparin Sodium (Porcine) 5,000 unit 08/11/19 11:44 08/12/19 13:22 Heparin - IVPUSH 5,000 unit PRN PRN Administration Heparin Ceftriaxone Sodium 1 gm/ 50 mls @ 100 mls/hr 08/08/19 14:00 08/12/19 10:56 Dextrose IVPB 100 mls/hr DAILY JO-ANN Administration Protocol Daptomycin 700 mg/ Sodium 100 mls @ 100 mls/hr 08/08/19 15:00 08/12/19 15:25 Chloride IVPB 100 mls/hr Q24H JO-ANN Administration Heparin Sodium (Porcine) 25, 500 mls @ 20 mls/hr 08/11/19 11:45 08/13/19 07: 47 000 unit/ Sodium Chloride IV 1,500 unit/hr TITR JO-ANN 30 mls/hr Titration Protocol 1,000 UNIT/HR Levothyroxine Sodium 100 mcg/ 175 mcg 08/10/19 12:34 08/13/19 06:05 Levothyroxine Sodium 75 mcg PO 175 mcg DAILY@0700 JO-ANN Administration Lidocaine 1 patch 08/04/19 13:30 08/12/19 10:57 Lidoderm Patch - TP 1 patch DAILY JO-ANN Administration Miscellaneous 1 each 08/04/19 22:00 08/12/19 20:59 Lidoderm Patch Removal MC Not Given DAILY@2200 [facility] Mometasone Furoate 1 puff 08/04/19 10:00 08/12/19 22:49 Asmanex 220mcg - IH Not Given BID [facility] Pantoprazole Sodium 40 mg 08/03/19 10:00 08/12/19 10:56 Protonix - PO 40 mg DAILY JO-ANN Administration Rifampin 300 mg 08/13/19 10:00 Rifadin - PO BID JO-ANN Spironolactone 25 mg 08/02/19 10:00 08/12/19 10:57 Aldactone - PO 25 mg DAILY JO-ANN Administration Tiotropium [place] 2 puff 08/02/19 10:00 08/12/19 10:58 Spiriva Respimat IH 2 puff DAILY JO-ANN Administration ASSESSMENT/PLAN: This is a 78 year old woman with a history of CAD, CABG, bioprosthetic mitral and aortic valve replacements, permanent atrial fib, SSS, maze procedure, pacemaker, HTN, hyperlipidemia, chronic diastolic heart failure, hypothyroidism who presented to the ED with altered mental status. 1. Acute metabolic encephalopathy secondary sepsis from E. coli UTI, Staph epidermidis bacteremia, possible MV endocarditis - Improving - Blood cultures 08/10 negative after 48 hours - Continue ceftriaxone, Daptomycin, Rifampin 2. Acute on chronic diastolic heart failure - Continue Lasix, Aldactone 3. Hypomagnesemia - Supplement magnesium 4. Demand ischemia 5. Hepatic transaminitis - LFTs stable 6. CAD, history of CABG 7. History of bioprosthetic MV/AV replacement 8. Permanent atrial fibrillation, SSS, history of maze procedure, history of pacemaker - Continue Digoxin, Coreg, Coumadin/heparin IV drip 9. HTN - Continue Coreg, Lasix, Aldactone 10. Hyperlipidemia 11. Hypothyroidism - Continue Synthroid 12. COPD - Stable - Continue Asmanex, Spiriva, albuterol as needed 13. L1 anterolisthesis with moderate spinal stenosis - Continue Neurontin, Lidoderm patch 14. DVT prophylaxis - On heparin IV Visit type - Emergency Visit Emergency Visit: Yes ED Registration Date: 08/01/19 Care time: The patient presented to the Emergency Department on the above date and was hospitalized for further evaluation of their emergent condition. - New Patient This patient is new to me today: No - Critical Care Critical Care patient: No - Discharge Referral Referred to [facility] Med P.C[facility] No
[2019-08-13] MEDS ORDERED: PT OWN MED DRAWER 7, Y5N ONE ×2 (10:29→11:10)
[2019-08-13] MEDS ORDERED: DEXTROSE 5%-WATER - 50 ML IVPB ONE (10:29)
[2019-08-13] MEDS ORDERED: cefTRIAXone SODIUM 1 GM VIAL ONE (10:29)
[2019-08-13] MEDS: PANTOPRAZOLE 40 MG TABLET (FP) PO SCH (10:45)
[2019-08-13] MEDS: RIFAMPIN 300 MG CAPSULE PO SCH ×2 (10:45→22:18)
[2019-08-13] MEDS: FUROSEMIDE 40 MG/4 ML INJECTABLE VIAL IVPUSH SCH (10:45)
[2019-08-13] MEDS: SPIRONOLACTONE 25 MG TABLET (FP) PO SCH (10:45)
[2019-08-13] MEDS: CEFTRIAXONE 1 GM in DEXTROSE 5%-WATER - 50 ML IVPB SCH (10:45)
[2019-08-13] MEDS: LIDOCAINE 5% TOPICAL PATCH TP SCH (10:45)
[2019-08-13] MEDS: DIGOXIN 0.125 MG TABLET (FP) PO SCH (10:46)
[2019-08-13] MEDS: CARVEDILOL 12.5 MG TABLET (FP) PO SCH ×2 (10:46→22:18)
[2019-08-13] MEDS: MOMETASONE FUROATE 220 MCG/IH INHALER IH SCH ×2 (10:47→23:18)
[2019-08-13] MEDS: TIOTROPIUM BROMIDE 2.5 MCG (SPIRIVA) RESPIMAT INHALER IH SCH (10:48)
[2019-08-13] MEDS ORDERED: MAGNESIUM OXIDE 400 MG TABLET (FP) PO ONE (12:18)
[2019-08-13] MEDS: HEPARIN - 25,000 UNIT in SODIUM CHLORIDE 495 ML IV SCH (13:04)
[2019-08-13 14:33] LABS: INR 1.28 (0.83-1.09); PROTHROMBIN TIME (PATIENT) 15.2 SEC (9.7-13.0)
[2019-08-13] MEDS: DAPTOMYCIN 700 MG in SODIUM CHLORIDE 100 ML IVPB SCH (14:48)
[2019-08-13] MEDS ORDERED: WARFARIN NA 7.5 MG TABLET (FP) PO ONE (18:00)
--- NOTE | 2019-08-13 20:05 | PN ---
Progress Note (short form) - Note Progress Note: 78-year-old female with history of coronary artery disease, status post CABG, history of bioprosthetic mitral and aortic valve replacement in 2015, maze procedure, status post permanent pacemaker for sick sinus syndrome, atrial fibrillation, hypertension, hypertensive cardiovascular disease, congestive heart failure, hypothyroidism.admitted with confusion and fever and is currently being treated for urinary sepsis and bacteremia and multiple +ve blood cultures staph epidermidis. Remains lethargic. afebrile. Xray chest reveals bilateral pleural effusions, either related to CHF or hypoproteinemia. ALLERGIES: None reported. Active Medications Generic Name Dose Route Start Last Admin Trade Name Freq PRN Reason Stop Dose Admin Acetaminophen 650 mg 08/04/19 18:34 08/12/19 17:02 Tylenol - PO 650 mg Q6H PRN Administration Fever Or Pain Albuterol Sulfate 1 puff 08/01/19 16:34 Ventolin Hfa Inhaler - IH Q4H PRN ASTHMA Albuterol Sulfate 2 puff 08/01/19 16:47 Ventolin Hfa Inhaler - IH Q4H PRN ASTHMA Carvedilol 12.5 mg 08/11/19 11:58 08/13/19 10:46 Coreg - PO 12.5 mg BID JO-ANN Administration Digoxin 0.125 mg 08/02/19 10:00 08/13/19 10:46 Lanoxin - PO 0.125 mg DAILY JO-ANN Administration Furosemide 40 mg 08/04/19 15:00 08/13/19 10:45 Lasix Injection - IVPUSH 40 mg DAILY JO-ANN Administration Gabapentin 100 mg 08/06/19 14:00 08/13/19 13:12 Neurontin - PO 100 mg TID JO-ANN Administration Heparin Sodium (Porcine) 1,000 unit 08/11/19 11:44 08/13/19 14:47 Heparin - IVPUSH 1,000 unit PRN PRN Administration Heparin Heparin Sodium (Porcine) 5,000 unit 08/11/19 11:44 08/12/19 13:22 Heparin - IVPUSH 5,000 unit PRN PRN Administration Heparin Ceftriaxone Sodium 1 gm/ 50 mls @ 100 mls/hr 08/08/19 14:00 08/13/19 10:45 Dextrose IVPB 100 mls/hr DAILY JO-ANN Administration Protocol Daptomycin 700 mg/ Sodium 100 mls @ 100 mls/hr 08/08/19 15:00 10/05/19 14:48 Chloride IVPB 100 mls/hr Q24H JO-ANN Administration Heparin Sodium (Porcine) 25, 500 mls @ 20 mls/hr 08/11/19 11:45 08/13/19 14: 47 000 unit/ Sodium Chloride IV 1,600 unit/hr TITR JO-ANN 32 mls/hr Titration Protocol 1,000 UNIT/HR Levothyroxine Sodium 100 mcg/ 175 mcg 08/10/19 12:34 08/13/19 06:05 Levothyroxine Sodium 75 mcg PO 175 mcg DAILY@0700 JO-ANN Administration Lidocaine 1 patch 08/04/19 13:30 08/13/19 10:45 Lidoderm Patch - TP 1 patch DAILY JO-ANN Administration Miscellaneous 1 each 08/04/19 22:00 08/12/19 20:59 Lidoderm Patch Removal MC Not Given DAILY@2200 JO-ANN Mometasone Furoate 1 puff 08/04/19 10:00 08/13/19 10:47 Asmanex 220mcg - IH 1 puff BID JO-ANN Administration Pantoprazole Sodium 40 mg 08/03/19 10:00 08/13/19 10:45 Protonix - PO 40 mg DAILY JO-ANN Administration Rifampin 300 mg 08/13/19 10:00 08/13/19 10:45 Rifadin - PO 300 mg BID JO-ANN Administration Spironolactone 25 mg 08/02/19 10:00 08/13/19 10:45 Aldactone - PO 25 mg DAILY JO-ANN Administration Tiotropium [place] 2 puff 08/02/19 10:00 08/13/19 10:48 Spiriva Respimat IH 2 puff DAILY JO-ANN Administration PHYSICAL EXAMINATION:General: 78-year-old female, lethargic, afebrile. Last Vital Signs Temp Pulse Resp BP Pulse Ox 98.7 F 57 L 20 149/62 97 08/13/19 19:00 08/13/19 19:00 08/13/19 19:00 08/13/19 19:00 08/13/19 09:00 Neck: Supple, no jugular venous distention, HJR -ve. carotids were 2+, upstrokes were normal, no bruits were heard and no thyromegaly was present. Heart: No heaves or thrills, S1 is variable, S2 was normal, ejection systolic murmur grade II/ was heard at the 2nd right intercostal space, decrescendo Grade II/ systolic murmur was heard at the apexand LSB no diastolic murmur or gallops were heard. Lungs: Clear on auscultation. Abdomen: Soft, obese and nontender. No hepatosplenomegaly or palpable masses were felt. Extremities: No calf tenderness or dependent edema. Pulses were equal. Laboratory Results - last 24 hr 08/12/19 08/12/19 08/13/19 20:30 21:09 05:11 WBC 13.8 H RBC 3.94 Hgb 11.7 Hct 34.8 MCV 88.2 MCH 29.7 MCHC 33.6 RDW 16.2 H Plt Count 138 D MPV 8.1 PT with INR INR PTT (Actin FS) 43.1 H Sodium Potassium Chloride Carbon Dioxide Anion Gap BUN Creatinine Est GFR (CKD-EPI)AfAm Est GFR (CKD-EPI)NonAf POC Glucometer 163 Random Glucose Calcium Phosphorus Magnesium Total Bilirubin AST ALT Alkaline Phosphatase Total Protein Albumin 08/13/19 08/13/19 08/13/19 05:11 05:11 13:30 WBC RBC Hgb Hct MCV MCH MCHC RDW Plt Count MPV PT with INR 15.20 H INR 1.28 H PTT (Actin FS) 40.5 H 44.0 H Sodium 138 Potassium 4.1 Chloride 102 Carbon Dioxide 26 Anion Gap 10 BUN 39.2 H Creatinine 1.1 Est GFR (CKD-EPI)AfAm 55.30 Est GFR (CKD-EPI)NonAf 47.71 POC Glucometer Random Glucose 127 H Calcium 8.2 L Phosphorus 2.9 Magnesium 1.7 L Total Bilirubin 1.4 H AST 92 H ALT 126 H Alkaline Phosphatase 257 H Total Protein 6.2 L Albumin 1.7 L 08/13/19 13:30 WBC RBC Hgb Hct MCV MCH MCHC RDW Plt Count MPV PT with INR INR PTT (Actin FS) Cancelled Sodium Potassium Chloride Carbon Dioxide Anion Gap BUN Creatinine Est GFR (CKD-EPI)AfAm Est GFR (CKD-EPI)NonAf POC Glucometer Random Glucose Calcium Phosphorus Magnesium Total Bilirubin AST ALT Alkaline Phosphatase Total Protein Albumin IMPRESSION: 1. Bilateral pleural effusions, related to hypoproteinemia vs CHF. 2. Coronary artery disease, status post coronary artery bypass grafting. 3. Sepsis vs endocarditis, cannot ruleout PPM lead infection 4. Sick sinus syndrome. Status post permanent pacemaker. 5. 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 6. Status post bioprosthetic aortic valve replacement with mild perivalvular leak(seeTEE report). 7. History of congestive heart failure. 8. Hypertension, hypertensive cardiovascular disease. 9. Acute on chronic left ventricular diastolic dysfunction. 10. Permanent atrial fibrillation. 11. Carotid artery disease. 12. History of bronchial asthma. 13. Hypercholesterolemia. 14. Status post maze procedure. 15. Hypothyroidism, on replacement therapy. 16. Abnormal LFTs. RECOMMENDATIONS: 1. Continue with current line of cardiac therapy. 2. May need extra lasix. 3. TSH. Prognosis: Critical. KESHA CHIN M.D.
[2019-08-13] MEDS: LIDOCAINE PATCH REMOVAL MC SCH (22:43)
[2019-08-14] MEDS ORDERED: LEVOTHYROXINE NA 75 MCG TABLET (FP) ONE (05:54)
[2019-08-14] MEDS ORDERED: LEVOTHYROXINE NA 100 MCG TABLET (FP) ONE (05:54)
[2019-08-14 06:41] LABS: BASO % 0.6 % (0-2.0); EOS % 0.6 % (0-4.5); HEMATOCRIT 34.7 % (32.4-45.2); HEMOGLOBIN 11.8 GM/dL (10.7-15.3); LYMPH % 7.4 % (8-40); MCH 30.1 pg (25.7-33.7); MCHC 34.1 g/dl (32.0-36.0); MEAN CELL VOLUME 88.4 fl (80-96); MEAN PLT VOLUME 8.6 fl (7.5-11.1); NEUT % 84.4 % (42.8-82.8); PLATELET COUNT 137 K/MM3 (134-434); RBC 3.92 M/mm3 (3.60-5.2); RDW 16.2 % (11.6-15.6); WHITE BLOOD COUNT 9.7 K/mm3 (4.0-10.0)
[2019-08-14] MEDS: GABAPENTIN 100 MG CAPSULE (FP) PO SCH ×3 (06:41→22:38)
[2019-08-14] MEDS: LEVOTHYROXINE 100 MCG, LEVOTHYROXINE 75 MCG PO SCH (06:41)
[2019-08-14 07:22] LABS: INR 1.35 (0.83-1.09)
[2019-08-14 07:29] LABS: ALBUMIN 1.7 g/dl (3.4-5.0); BILIRUBIN,DIRECT 0.6 mg/dL (0.0-0.2); BLOOD UREA NITROGEN 38.1 mg/dL (7-18); CALCIUM 8.3 mg/dL (8.5-10.1); POTASSIUM 4.2 mmol/L (3.5-5.1); TOT PROT 6.2 g/dl (6.4-8.2)
[2019-08-14] MEDS ORDERED: cefTRIAXone SODIUM 1 GM VIAL ONE (07:36)
[2019-08-14] MEDS ORDERED: DEXTROSE 5%-WATER - 50 ML IVPB ONE (07:37)
[2019-08-14] MEDS: CEFTRIAXONE 1 GM in DEXTROSE 5%-WATER - 50 ML IVPB SCH (09:09)
[2019-08-14] MEDS: SPIRONOLACTONE 25 MG TABLET (FP) PO SCH (09:10)
[2019-08-14] MEDS: FUROSEMIDE 40 MG/4 ML INJECTABLE VIAL IVPUSH SCH (09:10)
[2019-08-14] MEDS: RIFAMPIN 300 MG CAPSULE PO SCH ×2 (09:10→22:38)
[2019-08-14] MEDS: LIDOCAINE 5% TOPICAL PATCH TP SCH (09:10)
[2019-08-14] MEDS: PANTOPRAZOLE 40 MG TABLET (FP) PO SCH (09:10)
[2019-08-14] MEDS: DIGOXIN 0.125 MG TABLET (FP) PO SCH (09:10)
[2019-08-14] MEDS: MOMETASONE FUROATE 220 MCG/IH INHALER IH SCH ×2 (09:11→22:41)
[2019-08-14] MEDS: CARVEDILOL 12.5 MG TABLET (FP) PO SCH ×2 (09:11→22:43)
[2019-08-14] MEDS: TIOTROPIUM BROMIDE 2.5 MCG (SPIRIVA) RESPIMAT INHALER IH SCH (09:11)
--- NOTE | 2019-08-14 10:02 | PN ---
Progress Note, Physician History of Present Illness: patient looks better still very weak wbc has normalized more awake and alert - Current Medication List Current Medications: Active Medications Acetaminophen (Tylenol -) 650 mg PO Q6H PRN PRN Reason: Fever Or Pain Last Admin: 08/12/19 17:02 Dose: 650 mg Albuterol Sulfate (Ventolin Hfa Inhaler -) 1 puff IH Q4H PRN PRN Reason: ASTHMA Albuterol Sulfate (Ventolin Hfa Inhaler -) 2 puff IH Q4H PRN PRN Reason: ASTHMA Carvedilol (Coreg -) 12.5 mg PO BID [facility] Last Admin: 08/14/19 09:11 Dose: 12.5 mg Digoxin (Lanoxin -) 0.125 mg PO DAILY [facility] Last Admin: 08/14/19 09:10 Dose: 0.125 mg Furosemide (Lasix Injection -) 40 mg IVPUSH DAILY [facility] Last Admin: 08/14/19 09:10 Dose: 40 mg Gabapentin (Neurontin -) 100 mg PO TID [facility] Last Admin: 08/14/19 06:41 Dose: 100 mg Heparin Sodium (Porcine) (Heparin -) 1,000 unit IVPUSH PRN PRN PRN Reason: Heparin Last Admin: 08/13/19 22:19 Dose: 1,000 unit Heparin Sodium (Porcine) (Heparin -) 5,000 unit IVPUSH PRN PRN PRN Reason: Heparin Last Admin: 08/12/19 13:22 Dose: 5,000 unit Ceftriaxone Sodium 1 gm/ (Dextrose) 50 mls @ 100 mls/hr IVPB DAILY [facility]; Protocol Last Admin: 08/14/19 09:09 Dose: 100 mls/hr Daptomycin 700 mg/ Sodium (Chloride) 100 mls @ 100 mls/hr IVPB Q24H JO-ANN Last Admin: 08/13/19 14:48 Dose: 100 mls/hr Heparin Sodium (Porcine) 25, (000 unit/ Sodium Chloride) 500 mls @ 20 mls/hr IV TITR [facility]; Protocol Last Titration: 08/13/19 22:21 Dose: 1,700 unit/hr, 34 mls/hr Levothyroxine Sodium 100 mcg/ (Levothyroxine Sodium 75 mcg) 175 mcg PO DAILY@ 0700 [facility] Last Admin: 08/14/19 06:41 Dose: 175 mcg Lidocaine (Lidoderm Patch -) 1 patch TP DAILY [facility] Last Admin: 08/14/19 09:10 Dose: 1 patch Miscellaneous (Lidoderm Patch Removal) 1 each MC DAILY@2200 [facility] Last Admin: 08/13/19 22:43 Dose: 1 each Mometasone Furoate (Asmanex 220mcg -) 1 puff IH BID [facility] Last Admin: 08/14/19 09:11 Dose: 1 puff Pantoprazole Sodium (Protonix -) 40 mg PO DAILY [facility] Last Admin: 08/14/19 09:10 Dose: 40 mg Rifampin (Rifadin -) 300 mg PO BID [facility] Last Admin: 08/14/19 09:10 Dose: 300 mg Spironolactone (Aldactone -) 25 mg PO DAILY [facility] Last Admin: 08/14/19 09:10 Dose: 25 mg Tiotropium [place] (Spiriva Respimat) 2 puff IH DAILY [facility] Last Admin: 08/14/19 09:11 Dose: 2 puff - Objective Vital Signs: Vital Signs Temperature 98.6 F 08/14/19 08:04 Pulse Rate 69 08/14/19 09:10 Respiratory Rate 16 08/14/19 08:04 Blood Pressure 152/62 08/14/19 08:04 O2 Sat by Pulse Oximetry (%) 97 08/14/19 08:02 Constitutional: Yes: No Distress, Calm, Other (very weak) Cardiovascular: Yes: S1, S2, Other (murmur) Respiratory: Yes: Regular, CTA Bilaterally Gastrointestinal: Yes: Normal Bowel Sounds, Soft Musculoskeletal: Yes: WNL Extremities: Yes: WNL Neurological: Yes: Alert, Oriented Psychiatric: Yes: Alert, Oriented Labs: CBC, BMP 08/14/19 05:15 08/14/19 05:15 INR, PTT INR 1.35 (0.83-1.09) H 08/14/19 05:15 Assessment/Plan A/P Acute Metabolic Encephalopathy Transaminitis with elevated Alk phos COPD SSS s/p PPM placement Atrial fibrillation Hypothyroidism uti gm positive bacteremia plan continue current abx monitor wbc fevers rest as per the team monitor differential wbc
--- NOTE | 2019-08-14 11:31 | PN ---
Progress Note (short form) - Note Progress Note: PULMONARY MORE RESPONSIVE TODAY AFEBRILE/SPO2 96% 3L/M NC Eyes: ANICTERIC HENT: Yes: WNL Cardiovascular: Yes: Pulse Irregular, S1, S2 Respiratory: Yes: Diminished (POOR INSPIRATORY EFFORT) Gastrointestinal: Yes: Normal Bowel Sounds, Soft Extremities: Yes: WNL Edema: 1-2 + LOWER EXT Labs: REVIEWED - ....Imaging Chest X-ray: Report Reviewed, Image Reviewed X-ray: Report Reviewed (BILATERAL CONGESTION ,EFFUSIONS) Acute on Chronic Diastolic Heart Failure ?Prosthetic valve endocarditis UTI Gram Positive Staph Bacteremia r/o Pneumonia Pleural Effusions Sepsis +Troponins likely Demand Ischemia Elevated LFTs CAD s/p CABG Atrial Fibrillation h/o AVR/MVR SSS s/p PPM COPD Hypothyroidism - antibiotics per ID - continue IV lasix - monitor urine output, creatinine - rate control - aspiration precautions - O2 to keep SpO2 >90% - DVT prophylaxis - Cardio follow up Soheila ALMANZA MD
--- NOTE | 2019-08-14 13:31 | PN ---
Physical Exam: SUBJECTIVE: Patient seen and examined. She is sleeping but easily aroused. She is non-verbal and appears comfortable. OBJECTIVE: Vital Signs Period Temp Pulse Resp BP Sys/Agudelo Pulse Ox Last 24 Hr 97.7 F-98.7 F 55-71 16-20 124-157/57-69 96-97 GENERAL: The patient is awake, alert, non-verbal, in no acute distress. LUNGS: Breath sounds equal, clear to auscultation bilaterally, no wheezes, no crackles, no accessory muscle use. HEART: Regular rate and rhythm, S1, S2 without murmur, rub or gallop. ABDOMEN: Soft, nontender, nondistended, normoactive bowel sounds, no guarding, no rebound, no hepatosplenomegaly, no masses. EXTREMITIES: 2+ pulses, warm, well-perfused, no edema. Laboratory Results - last 24 hr 08/13/19 08/13/19 08/13/19 13:30 13:30 21:04 WBC RBC Hgb Hct MCV MCH MCHC RDW Plt Count MPV Absolute Neuts (auto) Neutrophils % Lymphocytes % Monocytes % Eosinophils % Basophils % Nucleated RBC % PT with INR 15.20 H INR 1.28 H PTT (Actin FS) 44.0 H Cancelled 44.5 H Sodium Potassium Chloride Carbon Dioxide Anion Gap BUN Creatinine Est GFR (CKD-EPI)AfAm Est GFR (CKD-EPI)NonAf Random Glucose Calcium Magnesium Total Bilirubin Direct Bilirubin AST ALT Alkaline Phosphatase Total Protein Albumin 08/14/19 08/14/19 08/14/19 04:56 05:15 05:15 WBC 9.7 RBC 3.92 Hgb 11.8 Hct 34.7 MCV 88.4 MCH 30.1 MCHC 34.1 RDW 16.2 H Plt Count 137 MPV 8.6 Absolute Neuts (auto) 8.2 H Neutrophils % 84.4 H Lymphocytes % 7.4 L D Monocytes % 7.0 Eosinophils % 0.6 D Basophils % 0.6 Nucleated RBC % 0 PT with INR INR PTT (Actin FS) 56.3 H 62.1 H Sodium Potassium Chloride Carbon Dioxide Anion Gap BUN Creatinine Est GFR (CKD-EPI)AfAm Est GFR (CKD-EPI)NonAf Random Glucose Calcium Magnesium Total Bilirubin Direct Bilirubin AST ALT Alkaline Phosphatase Total Protein Albumin 08/14/19 08/14/19 05:15 05:15 WBC RBC Hgb Hct MCV MCH MCHC RDW Plt Count MPV Absolute Neuts (auto) Neutrophils % Lymphocytes % Monocytes % Eosinophils % Basophils % Nucleated RBC % PT with INR 16.00 H INR 1.35 H PTT (Actin FS) Sodium 138 Potassium 4.2 Chloride 103 Carbon Dioxide 26 Anion Gap 9 BUN 38.1 H Creatinine 1.0 Est GFR (CKD-EPI)AfAm 62.05 Est GFR (CKD-EPI)NonAf 53.54 Random Glucose 117 H Calcium 8.3 L Magnesium 2.0 Total Bilirubin 1.0 Direct Bilirubin 0.6 H AST 43 H ALT 82 H Alkaline Phosphatase 217 H Total Protein 6.2 L Albumin 1.7 L Active Medications Generic Name Dose Route Start Last Admin Trade Name Freq PRN Reason Stop Dose Admin Acetaminophen 650 mg 08/04/19 18:34 08/12/19 17:02 Tylenol - PO 650 mg Q6H PRN Administration Fever Or Pain Albuterol Sulfate 1 puff 08/01/19 16:34 Ventolin Hfa Inhaler - IH Q4H PRN ASTHMA Albuterol Sulfate 2 puff 08/01/19 16:47 Ventolin Hfa Inhaler - IH Q4H PRN ASTHMA Carvedilol 12.5 mg 08/11/19 11:58 08/14/19 09:11 Coreg - PO 12.5 mg BID JO-ANN Administration Digoxin 0.125 mg 08/02/19 10:00 08/14/19 09:10 Lanoxin - PO 0.125 mg DAILY JO-ANN Administration Furosemide 40 mg 08/04/19 15:00 08/14/19 09:10 Lasix Injection - IVPUSH 40 mg DAILY JO-ANN Administration Gabapentin 100 mg 08/06/19 14:00 08/14/19 06:41 Neurontin - PO 100 mg TID JO-ANN Administration Heparin Sodium (Porcine) 1,000 unit 08/11/19 11:44 08/13/19 22:19 Heparin - IVPUSH 1,000 unit PRN PRN Administration Heparin Heparin Sodium (Porcine) 5,000 unit 08/11/19 11:44 08/12/19 13:22 Heparin - IVPUSH 5,000 unit PRN PRN Administration Heparin Ceftriaxone Sodium 1 gm/ 50 mls @ 100 mls/hr 08/08/19 14:00 08/14/19 09:09 Dextrose IVPB 100 mls/hr DAILY JO-ANN Administration Protocol Daptomycin 700 mg/ Sodium 100 mls @ 100 mls/hr 08/08/19 15:00 08/13/19 14:48 Chloride IVPB 100 mls/hr Q24H JO-ANN Administration Heparin Sodium (Porcine) 25, 500 mls @ 20 mls/hr 08/11/19 11:45 08/13/19 22: 21 000 unit/ Sodium Chloride IV 1,700 unit/hr TITR JO-ANN 34 mls/hr Titration Protocol 1,000 UNIT/HR Levothyroxine Sodium 100 mcg/ 175 mcg 08/10/19 12:34 08/14/19 06:41 Levothyroxine Sodium 75 mcg PO 175 mcg DAILY@0700 JO-ANN Administration Lidocaine 1 patch 08/04/19 13:30 08/14/19 09:10 Lidoderm Patch - TP 1 patch DAILY JO-ANN Administration Miscellaneous 1 each 08/04/19 22:00 08/13/19 22:43 Lidoderm Patch Removal MC 1 each DAILY@2200 JO-ANN Administration Mometasone Furoate 1 puff 08/04/19 10:00 08/14/19 09:11 Asmanex 220mcg - IH 1 puff BID JO-ANN Administration Pantoprazole Sodium 40 mg 08/03/19 10:00 08/14/19 09:10 Protonix - PO 40 mg DAILY JO-ANN Administration Rifampin 300 mg 08/13/19 10:00 08/14/19 09:10 Rifadin - PO 300 mg BID JO-ANN Administration Spironolactone 25 mg 08/02/19 10:00 08/14/19 09:10 Aldactone - PO 25 mg DAILY JO-ANN Administration Tiotropium [place] 2 puff 08/02/19 10:00 08/14/19 09:11 Spiriva Respimat IH 2 puff DAILY JO-ANN Administration ASSESSMENT/PLAN: This is a 78 year old woman with a history of CAD, CABG, bioprosthetic mitral and aortic valve replacements, permanent atrial fib, SSS, maze procedure, pacemaker, HTN, hyperlipidemia, chronic diastolic heart failure, hypothyroidism who presented to the ED with altered mental status. 1. Acute metabolic encephalopathy secondary sepsis from E. coli UTI, Staph epidermidis bacteremia, possible MV endocarditis - Improving - Blood cultures 08/10 negative after 96 hours - Continue ceftriaxone, Daptomycin, Rifampin 2. Acute on chronic diastolic heart failure - Weight down 4.6 kg since 9/27 - Continue Lasix, Aldactone 3. Hypomagnesemia - Improved 4. Demand ischemia 5. Hepatic transaminitis - Improving 6. CAD, history of CABG 7. History of bioprosthetic MV/AV replacement 8. Permanent atrial fibrillation, SSS, history of maze procedure, history of pacemaker - Continue Digoxin, Coreg, Coumadin/heparin IV drip 9. HTN - Continue Coreg, Lasix, Aldactone 10. Hyperlipidemia 11. Hypothyroidism - Continue Synthroid 12. COPD - Stable - Continue Asmanex, Spiriva, albuterol as needed 13. L1 anterolisthesis with moderate spinal stenosis - Continue Neurontin, Lidoderm patch 14. DVT prophylaxis - On heparin IV Visit type - Emergency Visit Emergency Visit: Yes ED Registration Date: 08/01/19 Care time: The patient presented to the Emergency Department on the above date and was hospitalized for further evaluation of their emergent condition. - New Patient This patient is new to me today: No - Critical Care Critical Care patient: No - Discharge Referral Referred to [facility] Med P.C.: No
[2019-08-14] MEDS: HEPARIN - 25,000 UNIT in SODIUM CHLORIDE 495 ML IV SCH (13:53)
[2019-08-14] MEDS: DAPTOMYCIN 700 MG in SODIUM CHLORIDE 100 ML IVPB SCH (14:26)
[2019-08-14] MEDS ORDERED: WARFARIN NA 7.5 MG TABLET (FP) PO ONE (18:00)
[2019-08-14] MEDS: LIDOCAINE PATCH REMOVAL MC SCH (22:39)
[2019-08-15] MEDS ORDERED: LEVOTHYROXINE NA 100 MCG TABLET (FP) ONE (06:30)
[2019-08-15] MEDS ORDERED: LEVOTHYROXINE NA 75 MCG TABLET (FP) ONE (06:30)
[2019-08-15 06:39] LABS: HEMATOCRIT 35.7 % (32.4-45.2); HEMOGLOBIN 12.1 GM/dL (10.7-15.3); MCH 29.8 pg (25.7-33.7); MCHC 33.7 g/dl (32.0-36.0); MEAN CELL VOLUME 88.4 fl (80-96); MEAN PLT VOLUME 8.9 fl (7.5-11.1); PLATELET COUNT 142 K/MM3 (134-434); RBC 4.04 M/mm3 (3.60-5.2); RDW 16.2 % (11.6-15.6); WHITE BLOOD COUNT 9.5 K/mm3 (4.0-10.0)
[2019-08-15] MEDS: GABAPENTIN 100 MG CAPSULE (FP) PO SCH ×3 (06:49→22:51)
[2019-08-15] MEDS: LEVOTHYROXINE 100 MCG, LEVOTHYROXINE 75 MCG PO SCH (06:50)
[2019-08-15 06:51] LABS: INR 1.79 (0.83-1.09); PROTHROMBIN TIME (PATIENT) 21.3 SEC (9.7-13.0)
[2019-08-15 06:53] LABS: ACTIVATED PTT 57.1 SECONDS (25.2-36.5)
[2019-08-15 08:00] LABS: ALBUMIN 1.8 g/dl (3.4-5.0); BILIRUBIN,DIRECT 0.6 mg/dL (0.0-0.2); BILIRUBIN,TOTAL 1.4 mg/dL (0.2-1); BLOOD UREA NITROGEN 41.3 mg/dL (7-18); CALCIUM 8.7 mg/dL (8.5-10.1); POTASSIUM 4.2 mmol/L (3.5-5.1); TOT PROT 6.6 g/dl (6.4-8.2)
[2019-08-15] MEDS ORDERED: DEXTROSE 5%-WATER - 50 ML IVPB ONE (08:28)
[2019-08-15] MEDS ORDERED: cefTRIAXone SODIUM 1 GM VIAL ONE (08:28)
[2019-08-15] MEDS: CEFTRIAXONE 1 GM in DEXTROSE 5%-WATER - 50 ML IVPB SCH (09:03)
[2019-08-15] MEDS: LIDOCAINE 5% TOPICAL PATCH TP SCH (09:03)
[2019-08-15] MEDS: CARVEDILOL 12.5 MG TABLET (FP) PO SCH ×2 (09:04→22:51)
[2019-08-15] MEDS: DIGOXIN 0.125 MG TABLET (FP) PO SCH (09:04)
[2019-08-15] MEDS: FUROSEMIDE 40 MG/4 ML INJECTABLE VIAL IVPUSH SCH (09:04)
[2019-08-15] MEDS: MOMETASONE FUROATE 220 MCG/IH INHALER IH SCH ×2 (09:04→22:50)
[2019-08-15] MEDS: RIFAMPIN 300 MG CAPSULE PO SCH ×2 (09:04→22:50)
[2019-08-15] MEDS: SPIRONOLACTONE 25 MG TABLET (FP) PO SCH (09:04)
[2019-08-15] MEDS: PANTOPRAZOLE 40 MG TABLET (FP) PO SCH (09:04)
--- NOTE | 2019-08-15 10:53 | PN ---
Progress Note (short form) - Note Progress Note: HPI: No events noted overnight. No telemetry events. Pt more lucid today and speaking. Denies any pain currently PE: Vital Signs Temperature 98.6 F 08/15/19 09:02 Pulse Rate 65 08/15/19 09:04 Respiratory Rate 18 08/15/19 09:02 Blood Pressure 140/66 08/15/19 09:02 O2 Sat by Pulse Oximetry (%) 98 08/15/19 09:00 Gen: NAD, Awake, alert, oriented x2 HEENT: NC/AT, CHRISTY, MMM LUNGS: Diminished sounds at bases due to poor effort. no wheezes, 2LNC CARD: Irregularly irregular with 3/6 systolic murmur ABD: Soft Nt/ND, normoactive BS, no hepatomegaly EXT: 2+ DP pulses, no peripheral edema noted CBC, BMP 08/15/19 05:30 08/15/19 05:30 Hepatic Panel Total Bilirubin 1.4 mg/dL (0.2-1) H 08/15/19 05:30 Direct Bilirubin 0.6 mg/dL (0.0-0.2) H 08/15/19 05:30 AST 30 U/L (15-37) 08/15/19 05:30 ALT 61 U/L (13-61) 08/15/19 05:30 Alkaline Phosphatase 210 U/L (45-117) H 08/15/19 05:30 Albumin 1.8 g/dl (3.4-5.0) L 08/15/19 05:30 Active Medications Acetaminophen (Tylenol -) 650 mg PO Q6H PRN PRN Reason: Fever Or Pain Last Admin: 08/12/19 17:02 Dose: 650 mg Albuterol Sulfate (Ventolin Hfa Inhaler -) 1 puff IH Q4H PRN PRN Reason: ASTHMA Albuterol Sulfate (Ventolin Hfa Inhaler -) 2 puff IH Q4H PRN PRN Reason: ASTHMA Carvedilol (Coreg -) 12.5 mg PO BID [facility] Last Admin: 08/15/19 09:04 Dose: 12.5 mg Digoxin (Lanoxin -) 0.125 mg PO DAILY [facility] Last Admin: 08/15/19 09:04 Dose: 0.125 mg Furosemide (Lasix Injection -) 40 mg IVPUSH DAILY [facility] Last Admin: 08/15/19 09:04 Dose: 40 mg Gabapentin (Neurontin -) 100 mg PO TID [facility] Last Admin: 08/15/19 06:49 Dose: 100 mg Heparin Sodium (Porcine) (Heparin -) 1,000 unit IVPUSH PRN PRN PRN Reason: Heparin Last Admin: 08/13/19 22:19 Dose: 1,000 unit Heparin Sodium (Porcine) (Heparin -) 5,000 unit IVPUSH PRN PRN PRN Reason: Heparin Last Admin: 08/12/19 13:22 Dose: 5,000 unit Ceftriaxone Sodium 1 gm/ (Dextrose) 50 mls @ 100 mls/hr IVPB DAILY [facility]; Protocol Last Admin: 08/15/19 09:03 Dose: 100 mls/hr Daptomycin 700 mg/ Sodium (Chloride) 100 mls @ 100 mls/hr IVPB Q24H [facility] Last Admin: 08/14/19 14:26 Dose: 100 mls/hr Heparin Sodium (Porcine) 25, (000 unit/ Sodium Chloride) 500 mls @ 20 mls/hr IV TITR [facility]; Protocol Last Admin: 08/14/19 13:53 Dose: 1,700 unit/hr, 34 mls/hr Levothyroxine Sodium 100 mcg/ (Levothyroxine Sodium 75 mcg) 175 mcg PO DAILY@ 0700 [facility] Last Admin: 08/15/19 06:50 Dose: 175 mcg Lidocaine (Lidoderm Patch -) 1 patch TP DAILY [facility] Last Admin: 08/15/19 09:03 Dose: 1 patch Miscellaneous (Lidoderm Patch Removal) 1 each MC DAILY@2200 [facility] Last Admin: 08/14/19 22:39 Dose: 1 each Mometasone Furoate (Asmanex 220mcg -) 1 puff IH BID [facility] Last Admin: 08/15/19 09:04 Dose: 1 puff Pantoprazole Sodium (Protonix -) 40 mg PO DAILY [facility] Last Admin: 08/15/19 09:04 Dose: 40 mg Rifampin (Rifadin -) 300 mg PO BID [facility] Last Admin: 08/15/19 09:04 Dose: 300 mg Spironolactone (Aldactone -) 25 mg PO DAILY [facility] Last Admin: 08/15/19 09:04 Dose: 25 mg Tiotropium [place] (Spiriva Respimat) 2 puff IH DAILY [facility] Last Admin: 08/14/19 09:11 Dose: 2 puff Microbiology 08/10/19 12:22 Blood - Peripheral Venous Blood Culture - Preliminary NO GROWTH OBTAINED AFTER 96 HOURS, INCUBATION TO CONTINUE FOR 1 DAYS. 08/10/19 12:16 Blood - Peripheral Venous Blood Culture - Preliminary NO GROWTH OBTAINED AFTER 96 HOURS, INCUBATION TO CONTINUE FOR 1 DAYS. 08/08/19 13:12 Blood - Peripheral Venous Blood Culture - Final NO GROWTH AFTER 5 DAYS INCUBATION 08/08/19 13:17 Blood - Peripheral Venous Blood Culture - Final Staphylococcus Epidermidis 08/05/19 14:30 Blood - Peripheral Venous Blood Culture - Final Staphylococcus Epidermidis 08/05/19 14:30 Blood - Peripheral Venous Blood Culture - Final Staphylococcus Epidermidis 08/03/19 12:15 Blood - Peripheral Venous Blood Culture - Final Staphylococcus Epidermidis 08/03/19 12:07 Blood - Peripheral Venous Blood Culture - Final Staphylococcus Epidermidis 08/01/19 11:58 Blood - Peripheral Venous Blood Culture - Final Staphylococcus Epidermidis 08/01/19 11:58 Blood - Peripheral Venous Blood Culture - Final Staphylococcus Epidermidis 08/01/19 11:38 Urine - Urine Clean Catch Urine Culture - Final Escherichia Coli Diphtheroid/Corynebacterium A/P Acute Metabolic Encephalopathy 2/2 to prosthetic valve endorcarditis 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 HFpEF Subendocardial ischemia demand Transaminitis with elevated Alk phos COPD SSS s/p PPM placement Atrial fibrillation Hypothyroidism --JANICE reviewed: Mitral bioprosthetic valv 0.8cm without functional decline of valve. No vegetations on pacer lead or aortic bioprostethic --Blood cultures remain cleared; pt remains afebrile --Continue Daptomycin day 7 --Continue Rocephin daily --Change Rifampin 300mg BID PO --Discuss with ID re: duration of ABX goal --Continue Afib rate control and AC medications; elevated HR noted on telemetry during febrile episodes: --Coreg 6.25mg BID PO --Cardizem 240mg BID --Digoxin 0.125mg PO daily --Heparin gtt to continue; if no potential procedure can switch back to Warfarin PO (start 2mg) --Continue Aldactone 25mg qdaily due to hx of HFpEF --Continue Synthroid 175mcg qdaily --Appreciated all oracle bpm consultant recommendations FEN: Fluids - None Electrolyte abnormalities: None today Nutrition: Dysphagia chopped PPX: DVT - On warfarin GI - Ranitidine BID Dispo: Continue monitoring Case discussed with Dr. Norma Levy, DO - IM PGY-3
[2019-08-15] MEDS: TIOTROPIUM BROMIDE 2.5 MCG (SPIRIVA) RESPIMAT INHALER IH SCH (11:21)
--- NOTE | 2019-08-15 11:33 | PN ---
Progress Note, Physician History of Present Illness: PULMONARY MORE ALERT,COMFORTABLE -RESP DISTRESS - Current Medication List Current Medications: Active Medications Acetaminophen (Tylenol -) 650 mg PO Q6H PRN PRN Reason: Fever Or Pain Last Admin: 08/12/19 17:02 Dose: 650 mg Albuterol Sulfate (Ventolin Hfa Inhaler -) 1 puff IH Q4H PRN PRN Reason: ASTHMA Albuterol Sulfate (Ventolin Hfa Inhaler -) 2 puff IH Q4H PRN PRN Reason: ASTHMA Carvedilol (Coreg -) 12.5 mg PO BID [facility] Last Admin: 08/15/19 09:04 Dose: 12.5 mg Digoxin (Lanoxin -) 0.125 mg PO DAILY [facility] Last Admin: 08/15/19 09:04 Dose: 0.125 mg Furosemide (Lasix Injection -) 40 mg IVPUSH DAILY [facility] Last Admin: 08/15/19 09:04 Dose: 40 mg Gabapentin (Neurontin -) 100 mg PO TID [facility] Last Admin: 08/15/19 06:49 Dose: 100 mg Heparin Sodium (Porcine) (Heparin -) 1,000 unit IVPUSH PRN PRN PRN Reason: Heparin Last Admin: 08/13/19 22:19 Dose: 1,000 unit Heparin Sodium (Porcine) (Heparin -) 5,000 unit IVPUSH PRN PRN PRN Reason: Heparin Last Admin: 08/12/19 13:22 Dose: 5,000 unit Ceftriaxone Sodium 1 gm/ (Dextrose) 50 mls @ 100 mls/hr IVPB DAILY [facility]; Protocol Last Admin: 08/15/19 09:03 Dose: 100 mls/hr Daptomycin 700 mg/ Sodium (Chloride) 100 mls @ 100 mls/hr IVPB Q24H [facility]-ANN Last Admin: 08/14/19 14:26 Dose: 100 mls/hr Heparin Sodium (Porcine) 25, (000 unit/ Sodium Chloride) 500 mls @ 20 mls/hr IV TITR [facility]; Protocol Last Admin: 08/14/19 13:53 Dose: 1,700 unit/hr, 34 mls/hr Levothyroxine Sodium 100 mcg/ (Levothyroxine Sodium 75 mcg) 175 mcg PO DAILY@ 0700 [facility] Last Admin: 08/15/19 06:50 Dose: 175 mcg Lidocaine (Lidoderm Patch -) 1 patch TP DAILY [facility] Last Admin: 10/07/19 09:03 Dose: 1 patch Miscellaneous (Lidoderm Patch Removal) 1 each MC DAILY@2200 [facility] Last Admin: 08/14/19 22:39 Dose: 1 each Mometasone Furoate (Asmanex 220mcg -) 1 puff IH BID [facility] Last Admin: 08/15/19 09:04 Dose: 1 puff Pantoprazole Sodium (Protonix -) 40 mg PO DAILY [facility] Last Admin: 08/15/19 09:04 Dose: 40 mg Rifampin (Rifadin -) 300 mg PO BID [facility] Last Admin: 08/15/19 09:04 Dose: 300 mg Spironolactone (Aldactone -) 25 mg PO DAILY [facility] Last Admin: 08/15/19 09:04 Dose: 25 mg Tiotropium [place] (Spiriva Respimat) 2 puff IH DAILY [facility] Last Admin: 08/15/19 11:21 Dose: 2 puff - Objective Vital Signs: Vital Signs Temperature 98.6 F 08/15/19 09:02 Pulse Rate 65 08/15/19 09:04 Respiratory Rate 18 08/15/19 09:02 Blood Pressure 140/66 08/15/19 09:02 O2 Sat by Pulse Oximetry (%) 98 08/15/19 09:00 Constitutional: Yes: Well Nourished, Calm Eyes: Yes: WNL HENT: Yes: WNL Neck: Yes: WNL Cardiovascular: Yes: Pulse Irregular, S1, S2 Respiratory: Yes: Diminished, Other (POOR INSPIRATORY EFFORT) Gastrointestinal: Yes: Normal Bowel Sounds, Soft Extremities: Yes: WNL Edema: No Labs: CBC, BMP 08/15/19 05:30 08/15/19 05:30 INR, PTT INR 1.79 (0.83-1.09) H 08/15/19 05:30 Problem List - Problems (1) Acute on chronic diastolic (congestive) heart failure Code(s): I50.33 - ACUTE ON CHRONIC DIASTOLIC (CONGESTIVE) HEART FAILURE (2) Altered mental status Code(s): R41.82 - ALTERED MENTAL STATUS, UNSPECIFIED Qualifiers: Altered mental status type: disorientation Qualified Code(s): R41.0 - Disorientation, unspecified (3) Atrial fibrillation Code(s): I48.91 - UNSPECIFIED ATRIAL FIBRILLATION (4) Elevated troponin Code(s): R74.8 - ABNORMAL LEVELS OF OTHER SERUM ENZYMES (5) Sepsis Code(s): A41.9 - SEPSIS, UNSPECIFIED ORGANISM Qualifiers: Sepsis type: sepsis due to unspecified organism Sepsis acute organ dysfunction status: unspecified Qualified Code(s): A41.9 - Sepsis, unspecified organism (6) UTI (urinary tract infection) Code(s): N39.0 - URINARY TRACT INFECTION, SITE NOT SPECIFIED Qualifiers: Urinary tract infection type: site unspecified Hematuria presence: without hematuria Qualified Code(s): N39.0 - Urinary tract infection, site not specified (7) Atrial fibrillation Code(s): I48.91 - UNSPECIFIED ATRIAL FIBRILLATION Qualifiers: Atrial fibrillation type: chronic (8) CAD (coronary artery disease), autologous vein bypass graft Code(s): I25.810 - ATHEROSCLEROSIS OF CABG W/O ANGINA PECTORIS Qualifiers: Associated angina: without angina Qualified Code(s): I25.810 - Atherosclerosis of coronary artery bypass graft(s) without angina pectoris (9) History of aortic valve replacement with bioprosthetic valve Code(s): Z95.4 - PRESENCE OF OTHER HEART-VALVE REPLACEMENT (10) History of mitral valve replacement with bioprosthetic valve Code(s): Z95.4 - PRESENCE OF OTHER HEART-VALVE REPLACEMENT (11) Hyperlipidemia Code(s): E78.5 - HYPERLIPIDEMIA, UNSPECIFIED Qualifiers: Hyperlipidemia type: unspecified Qualified Code(s): E78.5 - Hyperlipidemia , unspecified (12) Hypertension Code(s): I10 - ESSENTIAL (PRIMARY) HYPERTENSION Qualifiers: Hypertension type: essential hypertension Qualified Code(s): I10 - Essential (primary) hypertension (13) Hypothyroidism Code(s): E03.9 - HYPOTHYROIDISM, UNSPECIFIED Qualifiers: Hypothyroidism type: unspecified Qualified Code(s): E03.9 - Hypothyroidism , unspecified (14) Pleural effusion Code(s): J90 - PLEURAL EFFUSION, NOT ELSEWHERE CLASSIFIED Assessment/Plan Problem List - Problems (1) Acute on chronic diastolic (congestive) heart failure Code(s): I50.33 - ACUTE ON CHRONIC DIASTOLIC (CONGESTIVE) HEART FAILURE Assessment/Plan Acute on Chronic Diastolic Heart Failure UTI Gram Positive Bacteremia r/o Pneumonia Pleural Effusions Sepsis +Troponins likely Demand Ischemia Elevated LFTs CAD s/p CABG Atrial Fibrillation h/o AVR/MVR SSS s/p PPM COPD Hypothyroidism Back pain r/o Paraspinal abscess ?Endocarditis - ABX as per ID - continue IV lasix - monitor urine output, creatinine - rate control - aspiration precautions - O2 to keep SpO2 >90% - DVT prophylaxis DR ANGELES
--- NOTE | 2019-08-15 11:40 | PN ---
Progress Note, [employer] DEAN - Note Progress Note: Selected Entries 08/14/19 08/14/19 08/14/19 02:44 06:37 08:04 Breakfast Temperature 97.7 F 97.9 F 98.6 F 08/14/19 08/14/19 08/15/19 15:47 19:00 02:23 Breakfast Temperature 97.7 F 98.5 F 99.3 F 08/15/19 08/15/19 08/15/19 07:00 09:02 10:29 Breakfast 50% Temperature 98.2 F 98.6 F Laboratory Tests 08/11/19 08/12/19 08/13/19 05:40 06:03 05:11 WBC 13.2 H 12.5 H 13.8 H 08/14/19 08/15/19 05:15 05:30 WBC 9.7 9.5 Pt still quite impaired cognitively. Pt has possible left neglect. Weak. Bilateral ptosis. Weak voice. Impaired attention span with high distractibility. CT head 08/01 noted. Neuro 08/03 noted. Confused. Not at baseline cognitively/functionally although she is improving. Tolerating Dys chopped/nectar better than previous diet. Will benefit from MBS when stronger. Tolerating diet at present. Not congested. REC: Neurology f/u Defer MBS for now.
--- NOTE | 2019-08-15 12:15 | PN ---
Progress Note, Physician History of Present Illness: still very weak had breakfast still in and out of lethargy - Current Medication List Current Medications: Active Medications Acetaminophen (Tylenol -) 650 mg PO Q6H PRN PRN Reason: Fever Or Pain Last Admin: 08/12/19 17:02 Dose: 650 mg Albuterol Sulfate (Ventolin Hfa Inhaler -) 1 puff IH Q4H PRN PRN Reason: ASTHMA Albuterol Sulfate (Ventolin Hfa Inhaler -) 2 puff IH Q4H PRN PRN Reason: ASTHMA Carvedilol (Coreg -) 12.5 mg PO BID [facility] Last Admin: 08/15/19 09:04 Dose: 12.5 mg Digoxin (Lanoxin -) 0.125 mg PO DAILY [facility] Last Admin: 08/15/19 09:04 Dose: 0.125 mg Furosemide (Lasix Injection -) 40 mg IVPUSH DAILY [facility] Last Admin: 08/15/19 09:04 Dose: 40 mg Gabapentin (Neurontin -) 100 mg PO TID [facility] Last Admin: 08/15/19 06:49 Dose: 100 mg Heparin Sodium (Porcine) (Heparin -) 1,000 unit IVPUSH PRN PRN PRN Reason: Heparin Last Admin: 08/13/19 22:19 Dose: 1,000 unit Heparin Sodium (Porcine) (Heparin -) 5,000 unit IVPUSH PRN PRN PRN Reason: Heparin Last Admin: 08/12/19 13:22 Dose: 5,000 unit Ceftriaxone Sodium 1 gm/ (Dextrose) 50 mls @ 100 mls/hr IVPB DAILY [facility]; Protocol Last Admin: 08/15/19 09:03 Dose: 100 mls/hr Daptomycin 700 mg/ Sodium (Chloride) 100 mls @ 100 mls/hr IVPB Q24H [facility] Last Admin: 08/14/19 14:26 Dose: 100 mls/hr Heparin Sodium (Porcine) 25, (000 unit/ Sodium Chloride) 500 mls @ 20 mls/hr IV TITR [facility]; Protocol Last Admin: 08/14/19 13:53 Dose: 1,700 unit/hr, 34 mls/hr Levothyroxine Sodium 100 mcg/ (Levothyroxine Sodium 75 mcg) 175 mcg PO DAILY@ 0700 [facility] Last Admin: 08/15/19 06:50 Dose: 175 mcg Lidocaine (Lidoderm Patch -) 1 patch TP DAILY [facility] Last Admin: 08/15/19 09:03 Dose: 1 patch Miscellaneous (Lidoderm Patch Removal) 1 each MC DAILY@2200 [facility] Last Admin: 08/14/19 22:39 Dose: 1 each Mometasone Furoate (Asmanex 220mcg -) 1 puff IH BID [facility] Last Admin: 08/15/19 09:04 Dose: 1 puff Pantoprazole Sodium (Protonix -) 40 mg PO DAILY [facility] Last Admin: 08/15/19 09:04 Dose: 40 mg Rifampin (Rifadin -) 300 mg PO BID [facility] Last Admin: 08/15/19 09:04 Dose: 300 mg Spironolactone (Aldactone -) 25 mg PO DAILY [facility] Last Admin: 08/15/19 09:04 Dose: 25 mg Tiotropium [place] (Spiriva Respimat) 2 puff IH DAILY [facility] Last Admin: 08/15/19 11:21 Dose: 2 puff - Objective Vital Signs: Vital Signs Temperature 98.6 F 08/15/19 09:02 Pulse Rate 65 08/15/19 09:04 Respiratory Rate 18 08/15/19 09:02 Blood Pressure 140/66 08/15/19 09:02 O2 Sat by Pulse Oximetry (%) 98 08/15/19 09:00 Constitutional: Yes: No Distress, Calm, Other (failure to thrive) Cardiovascular: Yes: S1, S2, Other (murmur) Respiratory: Yes: Regular, CTA Bilaterally Gastrointestinal: Yes: Normal Bowel Sounds, Soft Musculoskeletal: Yes: WNL Extremities: Yes: WNL Neurological: Yes: Alert, Lethargy Psychiatric: Yes: Other Labs: CBC, BMP 08/15/19 05:30 08/15/19 05:30 INR, PTT INR 1.79 (0.83-1.09) H 08/15/19 05:30 Assessment/Plan A/P Acute Metabolic Encephalopathy Transaminitis with elevated Alk phos COPD SSS s/p PPM placement Atrial fibrillation Hypothyroidism uti gm positive bacteremia plan continue current abx monitor wbc fevers rest as per the team monitor differential wbc
--- NOTE | 2019-08-15 12:53 | PN ---
Teaching Attending Note Name of Resident: Abram Levy ATTENDING PHYSICIAN STATEMENT I saw and evaluated the patient. I reviewed the resident's note and discussed the case with the resident. I agree with the resident's findings and plan as documented. SUBJECTIVE: Patient is more alert and speaking more. OBJECTIVE: Vital Signs Period Temp Pulse Resp BP Sys/Agudelo Pulse Ox Last 24 Hr 97.6 F-99.3 F 55-73 18-18 121-148/55-97 98-98 GENERAL: The patient is awake, alert, non-verbal, in no acute distress. LUNGS: Breath sounds equal, clear to auscultation bilaterally, no wheezes, no crackles, no accessory muscle use. HEART: Regular rate and rhythm, S1, S2 without murmur, rub or gallop. ABDOMEN: Soft, nontender, nondistended, normoactive bowel sounds, no guarding, no rebound, no hepatosplenomegaly, no masses. EXTREMITIES: 2+ pulses, warm, well-perfused, no edema. Laboratory Results - last 24 hr 08/15/19 08/15/19 08/15/19 05:30 05:30 05:30 WBC 9.5 RBC 4.04 Hgb 12.1 Hct 35.7 MCV 88.4 MCH 29.8 MCHC 33.7 RDW 16.2 H Plt Count 142 MPV 8.9 PT with INR 21.30 H INR 1.79 H PTT (Actin FS) 57.1 H Sodium 141 Potassium 4.2 Chloride 104 Carbon Dioxide 26 Anion Gap 11 BUN 41.3 H Creatinine 1.0 Est GFR (CKD-EPI)AfAm 62.05 Est GFR (CKD-EPI)NonAf 53.54 Random Glucose 118 H Calcium 8.7 Magnesium 2.0 Total Bilirubin 1.4 H Direct Bilirubin 0.6 H AST 30 ALT 61 Alkaline Phosphatase 210 H Total Protein 6.6 Albumin 1.8 L Current Medications Generic Name Dose Route Start Last Admin Trade Name Freq PRN Reason Stop Dose Admin Acetaminophen 650 mg 08/04/19 18:34 08/12/19 17:02 Tylenol - PO 650 mg Q6H PRN Administration Fever Or Pain Albuterol Sulfate 1 puff 08/01/19 16:34 Ventolin Hfa Inhaler - IH Q4H PRN ASTHMA Albuterol Sulfate 2 puff 08/01/19 16:47 Ventolin Hfa Inhaler - IH Q4H PRN ASTHMA Carvedilol 12.5 mg 08/11/19 11:58 08/15/19 09:04 Coreg - PO 12.5 mg BID JO-ANN Administration Digoxin 0.125 mg 08/02/19 10:00 08/15/19 09:04 Lanoxin - PO 0.125 mg DAILY JO-ANN Administration Furosemide 40 mg 08/04/19 15:00 08/15/19 09:04 Lasix Injection - IVPUSH 40 mg DAILY JO-ANN Administration Gabapentin 100 mg 08/06/19 14:00 08/15/19 06:49 Neurontin - PO 100 mg TID [facility]-ANN Administration Heparin Sodium (Porcine) 1,000 unit 08/11/19 11:44 08/13/19 22:19 Heparin - IVPUSH 1,000 unit PRN PRN Administration Heparin Heparin Sodium (Porcine) 5,000 unit 08/11/19 11:44 08/12/19 13:22 Heparin - IVPUSH 5,000 unit PRN PRN Administration Heparin Ceftriaxone Sodium 1 gm/ 50 mls @ 100 mls/hr 08/08/19 14:00 08/15/19 09:03 Dextrose IVPB 100 mls/hr DAILY JO-ANN Administration Protocol Daptomycin 700 mg/ Sodium 100 mls @ 100 mls/hr 08/08/19 15:00 08/14/19 14:26 Chloride IVPB 100 mls/hr Q24H JO-ANN Administration Heparin Sodium (Porcine) 25, 500 mls @ 20 mls/hr 08/11/19 11:45 08/14/19 13: 53 000 unit/ Sodium Chloride IV 1,700 unit/hr TITR JO-ANN 34 mls/hr Administration Protocol 1,000 UNIT/HR Levothyroxine Sodium 100 mcg/ 175 mcg 08/10/19 12:34 08/15/19 06:50 Levothyroxine Sodium 75 mcg PO 175 mcg DAILY@0700 [facility]-ANN Administration Lidocaine 1 patch 08/04/19 13:30 08/15/19 09:03 Lidoderm Patch - TP 1 patch DAILY [facility]-ANN Administration Miscellaneous 1 each 08/04/19 22:00 08/14/19 22:39 Lidoderm Patch Removal MC 1 each DAILY@2200 [facility]-NAN Administration Mometasone Furoate 1 puff 08/04/19 10:00 08/15/19 09:04 Asmanex 220mcg - IH 1 puff BID JO-ANN Administration Pantoprazole Sodium 40 mg 08/03/19 10:00 08/15/19 09:04 Protonix - PO 40 mg DAILY [facility]-ANN Administration Rifampin 300 mg 08/13/19 10:00 08/15/19 09:04 Rifadin - PO 300 mg BID [facility]-ANN Administration Spironolactone 25 mg 08/02/19 10:00 08/15/19 09:04 Aldactone - PO 25 mg DAILY [facility]-ANN Administration Tiotropium [place] 2 puff 08/02/19 10:00 08/15/19 11:21 Spiriva Respimat IH 2 puff DAILY [facility]-ANN Administration ASSESSMENT AND PLAN: This is a 78 year old woman with a history of CAD, CABG, bioprosthetic mitral and aortic valve replacements, permanent atrial fib, SSS, maze procedure, pacemaker, HTN, hyperlipidemia, chronic diastolic heart failure, hypothyroidism who presented to the ED with altered mental status. 1. Acute metabolic encephalopathy secondary sepsis from E. 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 Acute on chronic diastolic heart failure - Weight down 4.8 kg since 08/05 - Continue Lasix, Aldactone 3. Hypomagnesemia - Improved 4. Demand ischemia 5. Hepatic transaminitis - Improving 6. CAD, history of CABG 7. History of bioprosthetic MV/AV replacement 8. Permanent atrial fibrillation, SSS, history of maze procedure, history of pacemaker - Continue Digoxin, Coreg, Coumadin/heparin IV drip 9. HTN - Continue Coreg, Lasix, Aldactone 10. Hyperlipidemia 11. Hypothyroidism - Continue Synthroid 12. COPD - Stable - Continue Asmanex, Spiriva, albuterol as needed 13. L1 anterolisthesis with moderate spinal stenosis - Continue Neurontin, Lidoderm patch 14. DVT prophylaxis - On heparin IV
[2019-08-15] MEDS: HEPARIN - 25,000 UNIT in SODIUM CHLORIDE 495 ML IV SCH (14:13)
[2019-08-15] MEDS: DAPTOMYCIN 700 MG in SODIUM CHLORIDE 100 ML IVPB SCH (15:12)
--- NOTE | 2019-08-15 15:16 | PN ---
Progress Note (short form) - Note Progress Note: 78-year-old female with history of coronary artery disease, status post CABG, history of bioprosthetic mitral and aortic valve replacement in 2015, maze procedure, status post permanent pacemaker for sick sinus syndrome, atrial fibrillation, hypertension, hypertensive cardiovascular disease, congestive heart failure, hypothyroidism.admitted with confusion and fever and is currently being treated for urinary sepsis and bacteremia and multiple +ve blood cultures staph epidermidis. Remains lethargic. Flat affect and failure to thrive, remains afebrile. ALLERGIES: None reported. Active Medications Acetaminophen (Tylenol -) 650 mg PO Q6H PRN PRN Reason: Fever Or Pain Last Admin: 08/12/19 17:02 Dose: 650 mg Albuterol Sulfate (Ventolin Hfa Inhaler -) 1 puff IH Q4H PRN PRN Reason: ASTHMA Albuterol Sulfate (Ventolin Hfa Inhaler -) 2 puff IH Q4H PRN PRN Reason: ASTHMA Carvedilol (Coreg -) 12.5 mg PO BID [facility] Last Admin: 08/15/19 09:04 Dose: 12.5 mg Digoxin (Lanoxin -) 0.125 mg PO DAILY [facility] Last Admin: 08/15/19 09:04 Dose: 0.125 mg Furosemide (Lasix Injection -) 40 mg IVPUSH DAILY [facility] Last Admin: 08/15/19 09:04 Dose: 40 mg Gabapentin (Neurontin -) 100 mg PO TID [facility] Last Admin: 08/15/19 13:04 Dose: 100 mg Heparin Sodium (Porcine) (Heparin -) 1,000 unit IVPUSH PRN PRN PRN Reason: Heparin Last Admin: 08/13/19 22:19 Dose: 1,000 unit Heparin Sodium (Porcine) (Heparin -) 5,000 unit IVPUSH PRN PRN PRN Reason: Heparin Last Admin: 08/12/19 13:22 Dose: 5,000 unit Ceftriaxone Sodium 1 gm/ (Dextrose) 50 mls @ 100 mls/hr IVPB DAILY [facility]; Protocol Last Admin: 08/15/19 09:03 Dose: 100 mls/hr Daptomycin 700 mg/ Sodium (Chloride) 100 mls @ 100 mls/hr IVPB Q24H [facility] Last Admin: 08/15/19 15:12 Dose: 100 mls/hr Heparin Sodium (Porcine) 25, (000 unit/ Sodium Chloride) 500 mls @ 20 mls/hr IV TITR [facility]; Protocol Last Admin: 08/15/19 14:13 Dose: 1,700 unit/hr, 34 mls/hr Levothyroxine Sodium 100 mcg/ (Levothyroxine Sodium 75 mcg) 175 mcg PO DAILY@ 0700 [facility] Last Admin: 08/15/19 06:50 Dose: 175 mcg Lidocaine (Lidoderm Patch -) 1 patch TP DAILY [facility] Last Admin: 08/15/19 09:03 Dose: 1 patch Miscellaneous (Lidoderm Patch Removal) 1 each MC DAILY@2200 [facility] Last Admin: 08/14/19 22:39 Dose: 1 each Mometasone Furoate (Asmanex 220mcg -) 1 puff IH BID [facility] Last Admin: 08/15/19 09:04 Dose: 1 puff Pantoprazole Sodium (Protonix -) 40 mg PO DAILY [facility] Last Admin: 08/15/19 09:04 Dose: 40 mg Rifampin (Rifadin -) 300 mg PO BID [facility] Last Admin: 08/15/19 09:04 Dose: 300 mg Spironolactone (Aldactone -) 25 mg PO DAILY [facility] Last Admin: 08/15/19 09:04 Dose: 25 mg Tiotropium [place] (Spiriva Respimat) 2 puff IH DAILY [facility] Last Admin: 08/15/19 11:21 Dose: 2 puff PHYSICAL EXAMINATION:General: 78-year-old female, lethargic, afebrile. Last Vital Signs Temp Pulse Resp BP Pulse Ox 98 F 81 20 124/63 98 08/15/19 14:00 08/15/19 14:00 08/15/19 14:00 08/15/19 14:00 08/15/19 09:00 Neck: Supple, no jugular venous distention, HJR -ve. carotids were 2+, upstrokes were normal, no bruits were heard and no thyromegaly was present. Heart: No heaves or thrills, S1 is variable, S2 was normal, ejection systolic murmur grade II/ was heard at the 2nd right intercostal space, decrescendo Grade II/ systolic murmur was heard at the apexand LSB no diastolic murmur or gallops were heard. Lungs: Clear on auscultation. Abdomen: Soft, obese and nontender. No hepatosplenomegaly or palpable masses were felt. Extremities: No calf tenderness or dependent edema. Pulses were equal. CBC, BMP 08/15/19 05:30 08/15/19 05:30 IMPRESSION: 1. Coronary artery disease, status post coronary artery bypass grafting. 2. Lethargy and failure to thriveassociated with a flat affeect , related to recent sepsis, neuro disorder need exclusion. 3. Sepsis and probable endocarditis, cannot ruleout PPM lead infection 4. Sick sinus syndrome. Status post permanent pacemaker. 5. 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 6. Status post bioprosthetic aortic valve replacement with mild perivalvular leak(seeTEE report). 7. History of congestive heart failure. 8. Hypertension, hypertensive cardiovascular disease. 9. Acute on chronic left ventricular diastolic dysfunction. 10. Permanent atrial fibrillation. 11. Carotid artery disease. 12. History of bronchial asthma. 13. Hypercholesterolemia. 14. Status post maze procedure. 15. Hypothyroidism, on replacement therapy. 16. Abnormal LFTs. RECOMMENDATIONS: 1. Continue with current line of cardiac therapy. 2. May need extra lasix. 3.TSH. 4.Consider cortisol levels,am and pm. 5.Neuro f/u. Prognosis: Critical. KESHA CHIN M.D.
[2019-08-15] MEDS ORDERED: WARFARIN NA 5 MG TABLET (UD) PO ONE (18:00)
[2019-08-15] MEDS ORDERED: PT OWN MED DRAWER 7, Y5N ONE (21:45)
[2019-08-15] MEDS: LIDOCAINE PATCH REMOVAL MC SCH (22:51)
[2019-08-16] MEDS ORDERED: LEVOTHYROXINE NA 75 MCG TABLET (FP) ONE (05:47)
[2019-08-16] MEDS ORDERED: LEVOTHYROXINE NA 100 MCG TABLET (FP) ONE (05:47)
[2019-08-16] MEDS: LEVOTHYROXINE 100 MCG, LEVOTHYROXINE 75 MCG PO SCH (06:15)
[2019-08-16] MEDS: GABAPENTIN 100 MG CAPSULE (FP) PO SCH ×2 (06:15→14:46)
[2019-08-16 07:25] LABS: HEMATOCRIT 34.8 % (32.4-45.2); HEMOGLOBIN 11.7 GM/dL (10.7-15.3); MCH 29.5 pg (25.7-33.7); MCHC 33.5 g/dl (32.0-36.0); MEAN CELL VOLUME 87.8 fl (80-96); PLATELET COUNT 141 K/MM3 (134-434); RBC 3.96 M/mm3 (3.60-5.2); RDW 16.6 % (11.6-15.6); WHITE BLOOD COUNT 9.4 K/mm3 (4.0-10.0)
[2019-08-16 07:35] LABS: INR 2.47 (0.83-1.09); PROTHROMBIN TIME (PATIENT) 29.4 SEC (9.7-13.0)
[2019-08-16 07:36] LABS: ACTIVATED PTT 82.5 SECONDS (25.2-36.5)
[2019-08-16] MEDS ORDERED: PT OWN MED DRAWER 7, Y5N ONE ×2 (09:00→14:51)
[2019-08-16] MEDS ORDERED: cefTRIAXone SODIUM 1 GM VIAL ONE (09:00)
[2019-08-16] MEDS ORDERED: DEXTROSE 5%-WATER - 50 ML IVPB ONE (09:01)
[2019-08-16 09:02] LABS: ALBUMIN 1.8 g/dl (3.4-5.0); BILIRUBIN,TOTAL 1.1 mg/dL (0.2-1); BLOOD UREA NITROGEN 35.8 mg/dL (7-18); CALCIUM 8.4 mg/dL (8.5-10.1); CREATININE 0.9 mg/dL (0.55-1.3); PHOSPHOROUS 3.3 mg/dL (2.5-4.9); POTASSIUM 3.9 mmol/L (3.5-5.1); TOT PROT 6.5 g/dl (6.4-8.2)
[2019-08-16] MEDS: CEFTRIAXONE 1 GM in DEXTROSE 5%-WATER - 50 ML IVPB SCH (09:46)
--- NOTE | 2019-08-16 09:47 | PN ---
Progress Note, DIRECTOR OF CONSTRUCTION - Note Progress Note: Pt reports that she lives alone, shops for herself. Factual? Baseline? She knows she is in [place], doesnt "feel like herself". Not congested. Tolerating diet. More alert and verbal. Speech dysphonic, weak but precise. Left hemianopsia/neglect. CT 08/01 Moderate atrophy, M/V changes. Chronic left Lacunar infarct. Selected Entries 08/15/19 08/15/19 08/15/19 02:23 07:00 09:02 Breakfast Supper Temperature 99.3 F 98.2 F 98.6 F 08/15/19 08/15/19 08/15/19 10:29 14:00 18:00 Breakfast 50% Supper 25% Temperature 98 F 08/15/19 08/16/19 08/16/19 22:00 02:00 06:00 Breakfast Supper Temperature 98.7 F 99.4 F 97.6 F Laboratory Tests 08/15/19 08/16/19 05:30 05:55 WBC 9.5 9.4 Supplements ordered. Please encourage supplements as snacks b/n meals to increase nutritional support.
[2019-08-16] MEDS: CARVEDILOL 12.5 MG TABLET (FP) PO SCH (09:49)
[2019-08-16] MEDS: SPIRONOLACTONE 25 MG TABLET (FP) PO SCH (09:49)
[2019-08-16] MEDS: DIGOXIN 0.125 MG TABLET (FP) PO SCH (09:49)
[2019-08-16] MEDS: FUROSEMIDE 40 MG/4 ML INJECTABLE VIAL IVPUSH SCH (09:49)
[2019-08-16] MEDS: PANTOPRAZOLE 40 MG TABLET (FP) PO SCH (09:49)
[2019-08-16] MEDS: RIFAMPIN 300 MG CAPSULE PO SCH (09:49)
[2019-08-16] MEDS: LIDOCAINE 5% TOPICAL PATCH TP SCH (09:50)
[2019-08-16] MEDS: MOMETASONE FUROATE 220 MCG/IH INHALER IH SCH (09:52)
[2019-08-16] MEDS: TIOTROPIUM BROMIDE 2.5 MCG (SPIRIVA) RESPIMAT INHALER IH SCH (09:52)
--- NOTE | 2019-08-16 11:18 | PN ---
Progress Note, Physician History of Present Illness: PULMONARY MORE AWAKE,ANSWERS QUESTIONS,COMFORTABLE,-RESP DISTRESS - Current Medication List Current Medications: Active Medications Acetaminophen (Tylenol -) 650 mg PO Q6H PRN PRN Reason: Fever Or Pain Last Admin: 08/12/19 17:02 Dose: 650 mg Albuterol Sulfate (Ventolin Hfa Inhaler -) 1 puff IH Q4H PRN PRN Reason: ASTHMA Albuterol Sulfate (Ventolin Hfa Inhaler -) 2 puff IH Q4H PRN PRN Reason: ASTHMA Carvedilol (Coreg -) 12.5 mg PO BID [facility] Last Admin: 08/16/19 09:49 Dose: 12.5 mg Digoxin (Lanoxin -) 0.125 mg PO DAILY [facility] Last Admin: 08/16/19 09:49 Dose: 0.125 mg Furosemide (Lasix Injection -) 40 mg IVPUSH DAILY [facility] Last Admin: 08/16/19 09:49 Dose: 40 mg Gabapentin (Neurontin -) 100 mg PO TID [facility] Last Admin: 08/16/19 06:15 Dose: 100 mg Ceftriaxone Sodium 1 gm/ (Dextrose) 50 mls @ 100 mls/hr IVPB DAILY [facility]; Protocol Last Admin: 08/16/19 09:46 Dose: 100 mls/hr Daptomycin 700 mg/ Sodium (Chloride) 100 mls @ 100 mls/hr IVPB Q24H [facility] Last Admin: 08/15/19 15:12 Dose: 100 mls/hr Levothyroxine Sodium 100 mcg/ (Levothyroxine Sodium 75 mcg) 175 mcg PO DAILY@ 0700 [facility] Last Admin: 08/16/19 06:15 Dose: 175 mcg Lidocaine (Lidoderm Patch -) 1 patch TP DAILY [facility] Last Admin: 08/16/19 09:50 Dose: 1 patch Miscellaneous (Lidoderm Patch Removal) 1 each MC DAILY@2200 [facility] Last Admin: 08/15/19 22:51 Dose: 1 each Mometasone Furoate (Asmanex 220mcg -) 1 puff IH BID [facility] Last Admin: 08/16/19 09:52 Dose: 1 puff Pantoprazole Sodium (Protonix -) 40 mg PO DAILY [facility] Last Admin: 08/16/19 09:49 Dose: 40 mg Rifampin (Rifadin -) 300 mg PO BID [facility] Last Admin: 08/16/19 09:49 Dose: 300 mg Spironolactone (Aldactone -) 25 mg PO DAILY [facility] Last Admin: 08/16/19 09:49 Dose: 25 mg Tiotropium [place] (Spiriva Respimat) 2 puff IH DAILY [facility] Last Admin: 08/16/19 09:52 Dose: 2 puff - Objective Vital Signs: Vital Signs Temperature 97.6 F 08/16/19 06:00 Pulse Rate 64 08/16/19 09:49 Respiratory Rate 20 08/16/19 06:00 Blood Pressure 144/67 08/16/19 06:00 O2 Sat by Pulse Oximetry (%) 98 08/15/19 22:00 Constitutional: Yes: Well Nourished, Calm Eyes: Yes: WNL HENT: Yes: WNL Neck: Yes: WNL Cardiovascular: Yes: Pulse Irregular, S1, S2 Respiratory: Yes: Rales, Other (poor inspiratory effort,bibasilar crackles) Gastrointestinal: Yes: Normal Bowel Sounds, Soft Extremities: Yes: WNL Edema: No Labs: CBC, BMP 08/16/19 05:55 08/16/19 05:55 INR, PTT INR 2.47 (0.83-1.09) H 08/16/19 05:55 Problem List - Problems (1) Acute on chronic diastolic (congestive) heart failure Code(s): I50.33 - ACUTE ON CHRONIC DIASTOLIC (CONGESTIVE) HEART FAILURE (2) Altered mental status Code(s): R41.82 - ALTERED MENTAL STATUS, UNSPECIFIED Qualifiers: Altered mental status type: disorientation Qualified Code(s): R41.0 - Disorientation, unspecified (3) Atrial fibrillation Code(s): I48.91 - UNSPECIFIED ATRIAL FIBRILLATION (4) Elevated troponin Code(s): R74.8 - ABNORMAL LEVELS OF OTHER SERUM ENZYMES (5) Sepsis Code(s): A41.9 - SEPSIS, UNSPECIFIED ORGANISM Qualifiers: Sepsis type: sepsis due to unspecified organism Sepsis acute organ dysfunction status: unspecified Qualified Code(s): A41.9 - Sepsis, unspecified organism (6) UTI (urinary tract infection) Code(s): N39.0 - URINARY TRACT INFECTION, SITE NOT SPECIFIED Qualifiers: Urinary tract infection type: site unspecified Hematuria presence: without hematuria Qualified Code(s): N39.0 - Urinary tract infection, site not specified (7) Atrial fibrillation Code(s): I48.91 - UNSPECIFIED ATRIAL FIBRILLATION Qualifiers: Atrial fibrillation type: chronic (8) CAD (coronary artery disease), autologous vein bypass graft Code(s): I25.810 - ATHEROSCLEROSIS OF CABG W/O ANGINA PECTORIS Qualifiers: Associated angina: without angina Qualified Code(s): I25.810 - Atherosclerosis of coronary artery bypass graft(s) without angina pectoris (9) History of aortic valve replacement with bioprosthetic valve Code(s): Z95.4 - PRESENCE OF OTHER HEART-VALVE REPLACEMENT (10) History of mitral valve replacement with bioprosthetic valve Code(s): Z95.4 - PRESENCE OF OTHER HEART-VALVE REPLACEMENT (11) Hyperlipidemia Code(s): E78.5 - HYPERLIPIDEMIA, UNSPECIFIED Qualifiers: Hyperlipidemia type: unspecified Qualified Code(s): E78.5 - Hyperlipidemia , unspecified (12) Hypertension Code(s): I10 - ESSENTIAL (PRIMARY) HYPERTENSION Qualifiers: Hypertension type: essential hypertension Qualified Code(s): I10 - Essential (primary) hypertension (13) Hypothyroidism Code(s): E03.9 - HYPOTHYROIDISM, UNSPECIFIED Qualifiers: Hypothyroidism type: unspecified Qualified Code(s): E03.9 - Hypothyroidism , unspecified (14) Pleural effusion Code(s): J90 - PLEURAL EFFUSION, NOT ELSEWHERE CLASSIFIED Assessment/Plan Problem List - Problems (1) Acute on chronic diastolic (congestive) heart failure Code(s): I50.33 - ACUTE ON CHRONIC DIASTOLIC (CONGESTIVE) HEART FAILURE Assessment/Plan Acute on Chronic Diastolic Heart Failure Altered mental status improving UTI Gram Positive Bacteremia r/o Pneumonia Pleural Effusions Sepsis +Troponins likely Demand Ischemia Elevated LFTs CAD s/p CABG Atrial Fibrillation h/o AVR/MVR SSS s/p PPM COPD Hypothyroidism Back pain r/o Paraspinal abscess ?Endocarditis - ABX as per ID - continue IV lasix - monitor urine output, creatinine - rate control - aspiration precautions - O2 to keep SpO2 >90% - DVT prophylaxis DR ANGELES
--- NOTE | 2019-08-16 12:00 | PN ---
Progress Note (short form) - Note Progress Note: HPI: No events noted overnight. No telemetry events. Pt more lucid today and speaking, however still differs from baseline PE: Vital Signs Temperature 98.6 F 08/15/19 09:02 Pulse Rate 65 08/15/19 09:04 Respiratory Rate 18 08/15/19 09:02 Blood Pressure 140/66 08/15/19 09:02 O2 Sat by Pulse Oximetry (%) 98 08/15/19 09:00 Gen: NAD, Awake, alert, oriented x2 HEENT: NC/AT, CHRISTY, MMM LUNGS: Diminished sounds at bases due to poor effort. no wheezes, 2LNC CARD: Irregularly irregular with 3/6 systolic murmur ABD: Soft Nt/ND, normoactive BS, no hepatomegaly Neuro: Difficult assessment; ? L hemineglect, moves four limbs spontaneously, sensation intact in all four limbs EXT: 2+ DP pulses, trace peripheral edema noted CBC, BMP 08/16/19 05:55 08/16/19 05:55 Active Medications Acetaminophen (Tylenol -) 650 mg PO Q6H PRN PRN Reason: Fever Or Pain Last Admin: 08/12/19 17:02 Dose: 650 mg Albuterol Sulfate (Ventolin Hfa Inhaler -) 1 puff IH Q4H PRN PRN Reason: ASTHMA Albuterol Sulfate (Ventolin Hfa Inhaler -) 2 puff IH Q4H PRN PRN Reason: ASTHMA Carvedilol (Coreg -) 12.5 mg PO BID [facility] Last Admin: 08/16/19 09:49 Dose: 12.5 mg Digoxin (Lanoxin -) 0.125 mg PO DAILY [facility] Last Admin: 08/16/19 09:49 Dose: 0.125 mg Furosemide (Lasix Injection -) 40 mg IVPUSH DAILY [facility] Last Admin: 08/16/19 09:49 Dose: 40 mg Gabapentin (Neurontin -) 100 mg PO TID [facility] Last Admin: 08/16/19 06:15 Dose: 100 mg Ceftriaxone Sodium 1 gm/ (Dextrose) 50 mls @ 100 mls/hr IVPB DAILY [facility]; Protocol Last Admin: 08/16/19 09:46 Dose: 100 mls/hr Daptomycin 700 mg/ Sodium (Chloride) 100 mls @ 100 mls/hr IVPB Q24H [facility] Last Admin: 08/15/19 15:12 Dose: 100 mls/hr Levothyroxine Sodium 100 mcg/ (Levothyroxine Sodium 75 mcg) 175 mcg PO DAILY@ 0700 [facility] Last Admin: 08/16/19 06:15 Dose: 175 mcg Lidocaine (Lidoderm Patch -) 1 patch TP DAILY [facility] Last Admin: 08/16/19 09:50 Dose: 1 patch Miscellaneous (Lidoderm Patch Removal) 1 each MC DAILY@2200 [facility] Last Admin: 08/15/19 22:51 Dose: 1 each Mometasone Furoate (Asmanex 220mcg -) 1 puff IH BID [facility] Last Admin: 08/16/19 09:52 Dose: 1 puff Pantoprazole Sodium (Protonix -) 40 mg PO DAILY [facility] Last Admin: 08/16/19 09:49 Dose: 40 mg Rifampin (Rifadin -) 300 mg PO BID [facility] Last Admin: 08/16/19 09:49 Dose: 300 mg Spironolactone (Aldactone -) 25 mg PO DAILY [facility] Last Admin: 08/16/19 09:49 Dose: 25 mg Tiotropium [place] (Spiriva Respimat) 2 puff IH DAILY [facility] Last Admin: 08/16/19 09:52 Dose: 2 puff Microbiology 08/10/19 12:22 Blood - Peripheral Venous Blood Culture - Preliminary NO GROWTH OBTAINED AFTER 96 HOURS, INCUBATION TO CONTINUE FOR 1 DAYS. 08/10/19 12:16 Blood - Peripheral Venous Blood Culture - Preliminary NO GROWTH OBTAINED AFTER 96 HOURS, INCUBATION TO CONTINUE FOR 1 DAYS. 08/08/19 13:12 Blood - Peripheral Venous Blood Culture - Final NO GROWTH AFTER 5 DAYS INCUBATION 08/08/19 13:17 Blood - Peripheral Venous Blood Culture - Final Staphylococcus Epidermidis 08/05/19 14:30 Blood - Peripheral Venous Blood Culture - Final Staphylococcus Epidermidis 08/05/19 14:30 Blood - Peripheral Venous Blood Culture - Final Staphylococcus Epidermidis 08/03/19 12:15 Blood - Peripheral Venous Blood Culture - Final Staphylococcus Epidermidis 08/03/19 12:07 Blood - Peripheral Venous Blood Culture - Final Staphylococcus Epidermidis 08/01/19 11:58 Blood - Peripheral Venous Blood Culture - Final Staphylococcus Epidermidis 08/01/19 11:58 Blood - Peripheral Venous Blood Culture - Final Staphylococcus Epidermidis 08/01/19 11:38 Urine - Urine Clean Catch Urine Culture - Final Escherichia Coli Diphtheroid/Corynebacterium A/P Acute Metabolic Encephalopathy 2/2 to prosthetic valve endorcarditis 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 HFpEF Subendocardial ischemia demand Transaminitis with elevated Alk phos COPD SSS s/p PPM placement Atrial fibrillation Hypothyroidism --Repeat Head CT without contrast due to relatively controlled infection without any significant improvement in mentation --Continue Daptomycin day 8 --Continue Rocephin daily --Change Rifampin 300mg BID PO --Discuss with ID re: duration of ABX goal --Continue Afib rate control and AC medications; elevated HR noted on telemetry during febrile episodes: --Coreg 6.25mg BID PO --Cardizem 240mg BID --Digoxin 0.125mg PO daily --Change back to Warfarin (INR at goal); discontinue heparin gtt --Warfarin 2mg q48h starting 08/17/19 --Continue Aldactone 25mg qdaily due to hx of HFpEF --Lasix 40mg IVP and possibly change to PO tomorrow --Continue Synthroid 175mcg qdaily --Appreciated all sap security consultant recommendations FEN: Fluids - None Electrolyte abnormalities: None today Nutrition: Dysphagia chopped; MBS once improvement seen PPX: DVT - On warfarin GI - Ranitidine BID Dispo: Continue monitoring Case discussed with Dr. Norma Levy, DO - IM PGY-3
--- NOTE | 2019-08-16 12:37 | PN ---
Progress Note, Physician History of Present Illness: still very weak patient still lethargic - Current Medication List Current Medications: Active Medications Acetaminophen (Tylenol -) 650 mg PO Q6H PRN PRN Reason: Fever Or Pain Last Admin: 08/12/19 17:02 Dose: 650 mg Albuterol Sulfate (Ventolin Hfa Inhaler -) 1 puff IH Q4H PRN PRN Reason: ASTHMA Albuterol Sulfate (Ventolin Hfa Inhaler -) 2 puff IH Q4H PRN PRN Reason: ASTHMA Carvedilol (Coreg -) 12.5 mg PO BID [facility] Last Admin: 08/16/19 09:49 Dose: 12.5 mg Digoxin (Lanoxin -) 0.125 mg PO DAILY [facility] Last Admin: 08/16/19 09:49 Dose: 0.125 mg Furosemide (Lasix Injection -) 40 mg IVPUSH DAILY [facility] Last Admin: 08/16/19 09:49 Dose: 40 mg Gabapentin (Neurontin -) 100 mg PO TID [facility] Last Admin: 08/16/19 06:15 Dose: 100 mg Ceftriaxone Sodium 1 gm/ (Dextrose) 50 mls @ 100 mls/hr IVPB DAILY [facility]; Protocol Last Admin: 08/16/19 09:46 Dose: 100 mls/hr Daptomycin 700 mg/ Sodium (Chloride) 100 mls @ 100 mls/hr IVPB Q24H [facility] Last Admin: 08/15/19 15:12 Dose: 100 mls/hr Levothyroxine Sodium 100 mcg/ (Levothyroxine Sodium 75 mcg) 175 mcg PO DAILY@ 0700 [facility] Last Admin: 08/16/19 06:15 Dose: 175 mcg Lidocaine (Lidoderm Patch -) 1 patch TP DAILY [facility] Last Admin: 08/16/19 09:50 Dose: 1 patch Miscellaneous (Lidoderm Patch Removal) 1 each MC DAILY@2200 [facility] Last Admin: 08/15/19 22:51 Dose: 1 each Mometasone Furoate (Asmanex 220mcg -) 1 puff IH BID [facility] Last Admin: 08/16/19 09:52 Dose: 1 puff Pantoprazole Sodium (Protonix -) 40 mg PO DAILY [facility] Last Admin: 08/16/19 09:49 Dose: 40 mg Rifampin (Rifadin -) 300 mg PO BID [facility] Last Admin: 08/16/19 09:49 Dose: 300 mg Spironolactone (Aldactone -) 25 mg PO DAILY [facility] Last Admin: 08/16/19 09:49 Dose: 25 mg Tiotropium [place] (Spiriva Respimat) 2 puff IH DAILY [facility] Last Admin: 08/16/19 09:52 Dose: 2 puff - Objective Vital Signs: Vital Signs Temperature 98.8 F 08/16/19 10:00 Pulse Rate 64 08/16/19 10:00 Respiratory Rate 20 08/16/19 10:00 Blood Pressure 158/64 08/16/19 10:00 O2 Sat by Pulse Oximetry (%) 98 08/15/19 22:00 Constitutional: Yes: No Distress, Calm Cardiovascular: Yes: S1, S2 Respiratory: Yes: Regular, CTA Bilaterally Gastrointestinal: Yes: Normal Bowel Sounds, Soft Musculoskeletal: Yes: WNL Extremities: Yes: WNL Neurological: Yes: Alert, Other Psychiatric: Yes: Other Labs: CBC, BMP 08/16/19 05:55 08/16/19 05:55 INR, PTT INR 2.47 (0.83-1.09) H 08/16/19 05:55 Assessment/Plan A/P Acute Metabolic Encephalopathy Transaminitis with elevated Alk phos COPD SSS s/p PPM placement Atrial fibrillation Hypothyroidism uti gm positive bacteremia plan continue current abx monitor wbc fevers rest as per the team
[2019-08-16] MEDS: DAPTOMYCIN 700 MG in SODIUM CHLORIDE 100 ML IVPB SCH (14:55)
--- NOTE | 2019-08-16 15:22 | PN ---
Progress Note (short form) - Note Progress Note: 78-year-old female with history of coronary artery disease, status post CABG, history of bioprosthetic mitral and aortic valve replacement in 2015, maze procedure, status post permanent pacemaker for sick sinus syndrome, atrial fibrillation, hypertension, hypertensive cardiovascular disease, congestive heart failure, hypothyroidism.admitted with confusion and fever and is currently being treated for urinary sepsis and bacteremia and multiple +ve blood cultures staph epidermidis. Remains lethargic. Flat affect and failure to thrive, remains afebrile. ALLERGIES: None reported. Active Medications Acetaminophen (Tylenol -) 650 mg PO Q6H PRN PRN Reason: Fever Or Pain Last Admin: 08/12/19 17:02 Dose: 650 mg Albuterol Sulfate (Ventolin Hfa Inhaler -) 1 puff IH Q4H PRN PRN Reason: ASTHMA Albuterol Sulfate (Ventolin Hfa Inhaler -) 2 puff IH Q4H PRN PRN Reason: ASTHMA Carvedilol (Coreg -) 12.5 mg PO BID [facility] Last Admin: 08/16/19 09:49 Dose: 12.5 mg Digoxin (Lanoxin -) 0.125 mg PO DAILY [facility] Last Admin: 08/16/19 09:49 Dose: 0.125 mg Furosemide (Lasix Injection -) 40 mg IVPUSH DAILY [facility] Last Admin: 08/16/19 09:49 Dose: 40 mg Gabapentin (Neurontin -) 100 mg PO TID [facility] Last Admin: 08/16/19 14:46 Dose: 100 mg Ceftriaxone Sodium 1 gm/ (Dextrose) 50 mls @ 100 mls/hr IVPB DAILY [facility]; Protocol Last Admin: 08/16/19 09:46 Dose: 100 mls/hr Daptomycin 700 mg/ Sodium (Chloride) 100 mls @ 100 mls/hr IVPB Q24H [facility] Last Admin: 08/16/19 14:55 Dose: 100 mls/hr Levothyroxine Sodium 100 mcg/ (Levothyroxine Sodium 75 mcg) 175 mcg PO DAILY@ 0700 [facility] Last Admin: 08/16/19 06:15 Dose: 175 mcg Lidocaine (Lidoderm Patch -) 1 patch TP DAILY [facility] Last Admin: 08/16/19 09:50 Dose: 1 patch Miscellaneous (Lidoderm Patch Removal) 1 each MC DAILY@2200 [facility] Last Admin: 08/15/19 22:51 Dose: 1 each Mometasone Furoate (Asmanex 220mcg -) 1 puff IH BID [facility] Last Admin: 08/16/19 09:52 Dose: 1 puff Pantoprazole Sodium (Protonix -) 40 mg PO DAILY [facility] Last Admin: 08/16/19 09:49 Dose: 40 mg Rifampin (Rifadin -) 300 mg PO BID [facility] Last Admin: 08/16/19 09:49 Dose: 300 mg Spironolactone (Aldactone -) 25 mg PO DAILY [facility] Last Admin: 08/16/19 09:49 Dose: 25 mg Tiotropium [place] (Spiriva Respimat) 2 puff IH DAILY [facility] Last Admin: 08/16/19 09:52 Dose: 2 puff PHYSICAL EXAMINATION:General: 78-year-old female, lethargic, afebrile. Last Vital Signs Temp Pulse Resp BP Pulse Ox 98.8 F 64 20 158/64 98 08/16/19 10:00 08/16/19 10:00 08/16/19 10:00 08/16/19 10:00 08/15/19 22:00 Neck: Supple, no jugular venous distention, HJR -ve. carotids were 2+, upstrokes were normal, no bruits were heard and no thyromegaly was present. Heart: No heaves or thrills, S1 is variable, S2 was normal, ejection systolic murmur grade II/ was heard at the 2nd right intercostal space, decrescendo Grade II/ systolic murmur was heard at the apexand LSB no diastolic murmur or gallops were heard. Lungs: Clear on auscultation. Abdomen: Soft, obese and nontender. No hepatosplenomegaly or palpable masses were felt. Extremities: No calf tenderness or dependent edema. Pulses were equal. CBC, BMP 08/16/19 05:55 08/16/19 05:55 IMPRESSION: 1. Coronary artery disease, status post coronary artery bypass grafting. 2. Lethargy and failure to thriveassociated with a flat affeect , related to recent sepsis, neuro disorder need exclusion. 3. Sepsis and probable endocarditis, cannot ruleout PPM lead infection 4. Sick sinus syndrome. Status post permanent pacemaker. 5. 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 6. Status post bioprosthetic aortic valve replacement with mild perivalvular leak(seeTEE report). 7. History of congestive heart failure. 8. Hypertension, hypertensive cardiovascular disease. 9. Acute on chronic left ventricular diastolic dysfunction. 10. Permanent atrial fibrillation. 11. Carotid artery disease. 12. History of bronchial asthma. 13. Hypercholesterolemia. 14. Status post maze procedure. 15. Hypothyroidism, on replacement therapy. 16. Abnormal LFTs. RECOMMENDATIONS: 1. Continue with current line of cardiac therapy. 2. May need extra lasix. 3.TSH. 4.Consider cortisol levels,am and pm. 5.Neuro f/u. Prognosis: Critical. KESHA CHIN M.D.
--- NOTE | 2019-08-16 16:59 | PN ---
Teaching Attending Note Name of Resident: Abram Levy ATTENDING PHYSICIAN STATEMENT I saw and evaluated the patient. I reviewed the resident's note and discussed the case with the resident. I agree with the resident's findings and plan as documented. SUBJECTIVE: Patient appears comfortable. She is awake and alert and speaking. OBJECTIVE: Vital Signs Period Temp Pulse Resp BP Sys/Agudelo Pulse Ox Last 24 Hr 97.6 F-100.2 F 53-69 18-20 134-158/58-67 98 HEART: S1S2, RRR, (+) 2/6 SM LUNGS: Clear ABDOMEN: Soft, non-tender, non-distended, normal BS EXTREMITIES: No edema Laboratory Results - last 24 hr 08/16/19 08/16/19 08/16/19 05:55 05:55 05:55 WBC 9.4 RBC 3.96 Hgb 11.7 Hct 34.8 MCV 87.8 MCH 29.5 MCHC 33.5 RDW 16.6 H Plt Count 141 MPV 9.0 PT with INR 29.40 H INR 2.47 H PTT (Actin FS) 82.5 H Sodium 141 Potassium 3.9 Chloride 106 Carbon Dioxide 25 Anion Gap 9 BUN 35.8 H Creatinine 0.9 Est GFR (CKD-EPI)AfAm 70.48 Est GFR (CKD-EPI)NonAf 60.81 Random Glucose 120 H Calcium 8.4 L Phosphorus 3.3 Magnesium 2.0 Total Bilirubin 1.1 H AST 25 ALT 43 Alkaline Phosphatase 190 H Total Protein 6.5 Albumin 1.8 L Current Medications Generic Name Dose Route Start Last Admin Trade Name Freq PRN Reason Stop Dose Admin Acetaminophen 650 mg 08/04/19 18:34 08/12/19 17:02 Tylenol - PO 650 mg Q6H PRN Administration Fever Or Pain Albuterol Sulfate 1 puff 08/01/19 16:34 Ventolin Hfa Inhaler - IH Q4H PRN ASTHMA Albuterol Sulfate 2 puff 08/01/19 16:47 Ventolin Hfa Inhaler - IH Q4H PRN ASTHMA Carvedilol 12.5 mg 08/11/19 11:58 08/16/19 09:49 Coreg - PO 12.5 mg BID [facility] Administration Digoxin 0.125 mg 08/02/19 10:00 08/16/19 09:49 Lanoxin - PO 0.125 mg DAILY [facility] Administration Furosemide 40 mg 08/04/19 15:00 08/16/19 09:49 Lasix Injection - IVPUSH 40 mg DAILY [facility] Administration Gabapentin 100 mg 08/06/19 14:00 08/16/19 14:46 Neurontin - PO 100 mg TID [facility] Administration Ceftriaxone Sodium 1 gm/ 50 mls @ 100 mls/hr 08/08/19 14:00 08/16/19 09:46 Dextrose IVPB 100 mls/hr DAILY [facility] Administration Protocol Daptomycin 700 mg/ Sodium 100 mls @ 100 mls/hr 08/08/19 15:00 08/16/19 14:55 Chloride IVPB 100 mls/hr Q24H [facility] Administration Levothyroxine Sodium 100 mcg/ 175 mcg 08/10/19 12:34 08/16/19 06:15 Levothyroxine Sodium 75 mcg PO 175 mcg DAILY@0700 [facility] Administration Lidocaine 1 patch 08/04/19 13:30 08/16/19 09:50 Lidoderm Patch - TP 1 patch DAILY [facility] Administration Miscellaneous 1 each 08/04/19 22:00 08/15/19 22:51 Lidoderm Patch Removal MC 1 each DAILY@2200 [facility] Administration Mometasone Furoate 1 puff 08/04/19 10:00 08/16/19 09:52 Asmanex 220mcg - IH 1 puff BID [facility] Administration Pantoprazole Sodium 40 mg 08/03/19 10:00 08/16/19 09:49 Protonix - PO 40 mg DAILY [facility] Administration Rifampin 300 mg 08/13/19 10:00 08/16/19 09:49 Rifadin - PO 300 mg BID [facility] Administration Spironolactone 25 mg 08/02/19 10:00 08/16/19 09:49 Aldactone - PO 25 mg DAILY [facility] Administration Tiotropium [place] 2 puff 08/02/19 10:00 08/16/19 09:52 Spiriva Respimat IH 2 puff DAILY [facility] Administration ASSESSMENT AND PLAN: This is a 78 year old woman with a history of CAD, CABG, bioprosthetic mitral and aortic valve replacements, permanent atrial fib, SSS, maze procedure, pacemaker, HTN, hyperlipidemia, chronic diastolic heart failure, hypothyroidism who presented to the ED with altered mental status. 1. Acute/subacute subarachnoid hemorrhage - No evidence of trauma - ? secondary to septic emboli - Has been on heparin IV drip and warfarin with PTT 82.5 and INR 2.47 this morning - Patient to be transferred to [facility] 2. Acute metabolic encephalopathy secondary sepsis from E. coli UTI, Staph epidermidis bacteremia, possible MV endocarditis - Improving - Blood cultures 08/10 negative - Continue ceftriaxone, Daptomycin, Rifampin 3. Acute on chronic diastolic heart failure - Weight down 6.1 kg since 08/05 - Continue Lasix, Aldactone 3. Hypomagnesemia - Improved 4. Demand ischemia 5. Hepatic transaminitis - Improved 6. CAD, history of CABG 7. History of bioprosthetic MV/AV replacement 8. Permanent atrial fibrillation, SSS, history of maze procedure, history of pacemaker - Continue Digoxin, Coreg - Heparin drip discontinued this morning secondary to therapeutic INR - Last warfarin dose was last night 9. HTN - Continue Coreg, Lasix, Aldactone 10. Hyperlipidemia 11. Hypothyroidism - Continue Synthroid 12. COPD - Stable - Continue Asmanex, Spiriva, albuterol as needed 13. L1 anterolisthesis with moderate spinal stenosis - Continue Neurontin, Lidoderm patch
--- NOTE | 2019-08-16 17:00 | PN ---
Progress Note (short form) - Note Progress Note: Pt noted to have subarachnoid hemorrhage on Head CT without any shifts or vasogenic mass effect. Reached out to neurology to recall to patient and to neurosurgery collection agent. Neurosurgery collection agent recommended high suspicion of trauma etiology vs. possible hemorrhage 2/2 to septic emboli. In addition discussed with cardiology about patient and reversal goal regarding bioprosthetic valves. Heparin gtt was stopped earlier this AM before read due to INR 2.5. Cardiology recommended transfer to tertiary care center. Vital Signs Temperature 100.2 F H 08/16/19 14:00 Pulse Rate 60 08/16/19 14:00 Respiratory Rate 18 08/16/19 14:00 Blood Pressure 154/60 08/16/19 14:00 O2 Sat by Pulse Oximetry (%) 98 08/15/19 22:00 Initiated call to [facility] and awaiting callback re: acceptance of patient. See NIHSS note for reassessment of neurological condition.
--- NOTE | 2019-08-16 17:07 | PN.NIHSS ---
NIH Stroke Scale - Last Known Well Date/Time & Onset Date Last Known Well: 07/31/19 (Unknown ) - Initial Evaluation Level of consciousness: Alert Ask patient the month and their age: Answers one correctly Ask patient to open & close eyes; make fist and let go: Obeys one correctly Best gaze (horizontal eye movement): Partial gaze palsy Visual field testing: Partial hemianopia Facial paresis (Show teeth/raise eyebrows/close eyes tight): Normal symmetrical movement Motor Function: Left Arm: Drift Motor Function: Right Arm: Drift Motor Function: Left Leg: Drift Motor Function: Right Leg: Drift Limb Ataxia: Untestable (Joint fused or limb amputated), explain: (Unable to follow commands) Sensory(Use pinprick test arms,legs,trunk,face/side to side): Normal Best language (Describe picture, name items, read sentences): No Aphasia Dysarthria (read several words): Normal articulation Extinction and Inattention: Inattention or extinction bilaterally to one of the sensory modalities - Total Score NIH Stroke Scale Score: 9
[2019-08-16 18:12] VITALS: BP 135/57; PULSE 58; TEMP 99.2
--- NOTE | 2019-08-16 22:18 | DS ---
Physical Exam: SUBJECTIVE: See previous noted on 08/16/2019. Pt accepted to [facility] by Dr. Baker. Transport is en route. Son informed of patient's condition and transfer. All paperwork signed. OBJECTIVE: Vital Signs Period Temp Pulse Resp BP Sys/Agudelo Pulse Ox Last 24 Hr 97.6 F-100.2 F 58-69 18-20 135-158/57-67 98 PHYSICAL EXAM See previous notes on 08/16/2019. Unchanged LABS Laboratory Results - last 24 hr 08/16/19 08/16/19 08/16/19 05:55 05:55 05:55 WBC 9.4 RBC 3.96 Hgb 11.7 Hct 34.8 MCV 87.8 MCH 29.5 MCHC 33.5 RDW 16.6 H Plt Count 141 MPV 9.0 PT with INR 29.40 H INR 2.47 H PTT (Actin FS) 82.5 H Sodium 141 Potassium 3.9 Chloride 106 Carbon Dioxide 25 Anion Gap 9 BUN 35.8 H Creatinine 0.9 Est GFR (CKD-EPI)AfAm 70.48 Est GFR (CKD-EPI)NonAf 60.81 Random Glucose 120 H Calcium 8.4 L Phosphorus 3.3 Magnesium 2.0 Total Bilirubin 1.1 H AST 25 ALT 43 Alkaline Phosphatase 190 H Total Protein 6.5 Albumin 1.8 L Microbiology 08/10/19 12:22 Blood - Peripheral Venous Blood Culture - Final NO GROWTH AFTER 5 DAYS INCUBATION 08/10/19 12:16 Blood - Peripheral Venous Blood Culture - Final NO GROWTH AFTER 5 DAYS INCUBATION 08/08/19 13:12 Blood - Peripheral Venous Blood Culture - Final NO GROWTH AFTER 5 DAYS INCUBATION 08/08/19 13:17 Blood - Peripheral Venous Blood Culture - Final Staphylococcus Epidermidis 08/05/19 14:30 Blood - Peripheral Venous Blood Culture - Final Staphylococcus Epidermidis 08/05/19 14:30 Blood - Peripheral Venous Blood Culture - Final Staphylococcus Epidermidis 08/03/19 12:15 Blood - Peripheral Venous Blood Culture - Final Staphylococcus Epidermidis 08/03/19 12:07 Blood - Peripheral Venous Blood Culture - Final Staphylococcus Epidermidis 08/01/19 11:58 Blood - Peripheral Venous Blood Culture - Final Staphylococcus Epidermidis 08/01/19 11:58 Blood - Peripheral Venous Blood Culture - Final Staphylococcus Epidermidis 08/01/19 11:38 Urine - Urine Clean Catch Urine Culture - Final Escherichia Coli Diphtheroid/Corynebacterium Imagin08/01/19 CT Head and cervical spine Noncontrast: IMPRESSION: Moderate atrophy and mild periventricular chronic microvascular ischemic disease changes. Left periventricular chronic lacunar infarct along superior margin of the left basal ganglia. No mass lesion, gross acute infarct or intracranial hemorrhage are identified. CT scan of the cervical spine without intravenous contrast Coronal and sagittal reconstruction images were obtained. There is straightening of the cervical spine. No gross fracture, subluxation or prevertebral soft tissue swelling is seen. No jumped facets are identified. C5-C6 mild degenerative disc disease and anterior spondylosis. Moderate mainly left uncovertebral hypertrophy moderately narrowing the left foramen. C6-C7 moderate degenerative disc disease and mild mainly central disc bulge as well as uncovertebral hypertrophy moderately narrowing the left and slightly narrowing the right foramen. Multilevel moderate to marked left facet hypertrophy Visualized portion of the airway appears unremarkable. No gross enlarged lymph nodes are identified. Lung windows at the thoracic inlet appear unremarkable. IMPRESSION: The alignment is satisfactory. No gross fracture or subluxation is seen. No jumped facets are identified. Moderate degenerative disc disease at C6-C7 level. Uncovertebral hypertrophy moderately narrowing the left foramen at C5-C6 and C6- C7 level. Abdominal U/S: IMPRESSION: S/P cholecystectomy with no evidence of biliary ductal dilatation or acute pathology. Abdominal/Pelvic CT and Chest CT without contrast 08/03/19: Impression: Bibasal consolidation/pneumonia and moderate bilateral pleural effusion, right more the left. Cardiomegaly and postop changes, as described above. No gross enlarged mediastinal or hilar lymph nodes are identified. Status post cholecystectomy. Hepatomegaly. There is no evidence of small bowel obstruction. Nonvisualization of the appendix. Diverticulosis coli mainly in the sigmoid colon without evidence of acute diverticulitis. [id number] amount of free fluid in the lower pelvis and cul-de-sac, of uncertain etiology. Grade 1 anterolisthesis of L4 over L5 and multilevel degenerative disc disease with prominent posterior spur formation at L1-L2 and L2-L3 level resulting in at least moderate spinal canal stenosis at both levels. Correlate clinically for further evaluation. Thoracic and lumbar spine CT 08/07/19: IMPRESSION: No compression fracture is identified. Mild anterolisthesis of L4 over L5, grade 1 and minimal retrolisthesis of L5 over 1 likely degenerative. Otherwise, no subluxation is identified. Multilevel degenerative disc disease in the lumbar spine with posterior spur formation/disc bulge and significant bilateral facet hypertrophy resulting in marked degenerative central spinal canal stenosis at L4-L5 level, mild to moderate degenerative central spinal canal stenosis at L1-L2 and L2-L3 level as well as moderate degenerative central spinal canal stenosis at L3-L4 level. No gross abnormal intraspinal enhancement or abnormal enhancement within the intervertebral disc spaces are identified. Correlate clinically and if needed correlation with MRI would be more sensitive to rule out osteomyelitis considering the clinical history. 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 There are probably are mild congestive changes and there has been the development of a moderate right effusion. There is increased opacity on the left which obscures the diaphragm and this could also represent effusion versus other processes. Continuing clinical and radiographic follow-up suggested. JANICE: Summary Statements Left ventricular systolic function is grossly normal. The right ventricular systolic function is grossly normal. There is a pacemaker lead in the right ventricle. Spontaneous contrast in LA. Mobile echodensity attached to anterior prosthetic MV leaflet, cannot rule out vegetation. Not well visualized, measures at least 0.8 cm diameter. The prosthetic mitral valve is well-seated. Bioprosthesis leaflets are thin and move normally. There is no mitral regurgitation noted. There is moderate tricuspid regurgitation. Mild paravalvular aortic regurgitation Limited views were obtained. Head CT noncontrast 08/16/19: Impression: Moderate atrophy and periventricular chronic microvascular ischemic disease changes. Findings compatible with acute/subacute subarachnoid hemorrhage seen along lateral margin of the right frontal lobe HOSPITAL COURSE: Date of Admission:08/01/19 Date of Discharge: 08/16/19 Pt was admitted on 08/01/19 due to sudden collapse and altered mental status originally suspected to be acute metabolic encephalopathy related to infectious processes. During her hospital course patient was noted to have persistent fevers and was covered with broad-spectrum antibiotics (vancomycin and Zosyn IVPB) overseen by infectious disease consultation. In addition, pt was noted to have become supratherapeutic to INR 4 whilst holding patient's home dose Coumadin throughout, and had minimal elevation of LFTs being overseen by GI. Pt continued to sustain fevers and Gram + bacteremia as above was noted when CT Chest and A/P without contrast was performed for ascertation of source. During this evaluation pt was noted to have large pleural effusions and anterior spondylolisthesis. Pt was evaluted by neurosurgery who recommended conservative management for her spine pathology given her advanced comorbid conditions. Pt's fevers persisted despite escalation of antibiotic therapy and eventually TTE and subsequent JANICE were performed. 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 Pt was switched to Daptomycin alongside of Rocephin and Rifampin for synergy whilst monitoring blood cultures until they had been cleared. Pt remained altered even with interval resolution of her fever curve and clearing bacteremia which prompted Head CT noncontrast to be obtained given possible hemineglect seen on exam. Head Ct noncontrast yielded subarachnoid hemorrhage of unspecified dimension without any shift or vasogenic edema. Neurosurgery mining consultant was consulted who alongside of cardiology had recommended transfer to [facility]. Pt was accepted to [facility] by Dr. Baker and transport is imminent for pickup. Minutes to complete discharge: 55 Discharge Summary Problems reviewed: Yes Reason For Visit: acute metabolic encephalopathy; fever Condition: Guarded - Instructions Diet, Activity, Other Instructions: You are being transferred to [facility] due to subarachnoid bleed Referrals: Cheryl Caicedo MD [Staff Physician] - Luis Fernando Bernal MD [Primary Care Provider] - Julio César Gonzalez MD [Staff Physician] - Disposition: TRANSFER ACUTE CARE/OTHER HOSP - Home Medications Comprehensive Discharge Medication List: Ambulatory Orders Cholecalciferol (Vitamin D3) [Vitamin D] 1,000 unit PO DAILY 05/28/12 Furosemide [Lasix -] 40 mg PO DAILY 05/28/12 Levothyroxine [Synthroid -] 175 mcg PO DAILY 05/28/12 Multivits W-Fe,Other Min/Lut [Centrum Silver Ultra Women Tab] 1 each PO DAILY Atorvastatin Calcium [Lipitor] 10 mg PO HS 06/24/13 Ranitidine HCl [Zantac] 150 mg PO BID 06/24/13 Acetaminophen [Tylenol] 650 mg PO PRN PRN 08/19/15 Potassium Chloride [Klor-Con M20] 20 meq PO BID 08/19/15 Diltiazem Cd [Cardizem Cd -] 240 mg PO BID #60 cap.cd.24h 09/07/15 Umeclidinium [place] [Incruse Ellipta] 62.5 mcg IH DAILY 05/26/19 Acetaminophen [Tylenol .Regular Strength -] 650 mg PO Q6H PRN tablet 08/16/19 Albuterol Sulfate Inhaler - [Ventolin HFA Inhaler -] 1 puff IH Q4H PRN inhaler 08/16/19 Carvedilol [Coreg -] 12.5 mg PO BID tablet 08/16/19 Ceftriaxone [Rocephin -] 1 gm IVPB DAILY vial 08/16/19 Daptomycin [Cubicin (Restricted To Id) -] 700 mg IVPB Q24H vial 08/16/19 Digoxin [Lanoxin -] 0.125 mg PO DAILY tablet 08/16/19 Furosemide Injection [Lasix Injection -] 40 mg IVPUSH DAILY vial 08/16/19 Gabapentin [Neurontin -] 100 mg PO TID capsule 08/16/19 Levothyroxine [Synthroid -] 175 mcg PO DAILY@0700 tablet 08/16/19 Lidocaine 5% Patch [Lidoderm -] 1 patch TP DAILY patch 08/16/19 Lidocaine Patch Removal [Lidoderm Patch Removal] 1 each MC DAILY@2200 each 06/27 Mometasone Furoate [Asmanex 220Mcg -] 1 puff IH BID inhaler 08/16/19 Pantoprazole Sodium [Protonix -] 40 mg PO DAILY tablet.ec 08/16/19 Rifampin [Rifadin -] 300 mg PO BID capsule 08/16/19 Spironolactone [Aldactone -] 25 mg PO DAILY tablet 08/16/19 This patient is new to me today: No Emergency Visit: Yes ED Registration Date: 08/01/19 Care time: The patient presented to the Emergency Department on the above date and was hospitalized for further evaluation of their emergent condition. Critical Care patient: No - Discharge Referral Referred to [facility] Med P.C.: No ATTENDING PHYSICIAN STATEMENT I saw and evaluated the patient. I reviewed the resident's note and discussed the case with the resident. I agree with the resident's findings and plan as documented. SUBJECTIVE: OBJECTIVE: ASSESSMENT AND PLAN:
== END 2019-08-16 18:49 | disposition short-term general hospital (02) | DRG 64 ==
LOC: SUPCPDRO 11:05 → JER 11:05 → JERBED 13:37 → J4W 23:48
PROVIDERS: ADMIT Internal Medicine; ATTEND Internal Medicine
PROC: B246ZZ4 Ultrasonography of Right and Left Heart, Transesophageal (ICD-10-PCS; principal; 2019-08-09 11:45)
DX: I60.9 Nontraumatic subarachnoid hemorrhage, unspecified (principal); A41.51 Sepsis due to Escherichia coli [E. coli]; G93.41 Metabolic encephalopathy; I50.33 Acute on chronic diastolic (congestive) heart failure; I33.9 Acute and subacute endocarditis, unspecified; N39.0 Urinary tract infection, site not specified; I50.30 Unspecified diastolic (congestive) heart failure; I76 Septic arterial embolism; I24.8 Other forms of acute ischemic heart disease; I48.21 Permanent atrial fibrillation; J44.9 Chronic obstructive pulmonary disease, unspecified; E03.9 Hypothyroidism, unspecified; I25.10 Atherosclerotic heart disease of native coronary artery without angina pectoris; I49.5 Sick sinus syndrome; E78.5 Hyperlipidemia, unspecified; B96.20 Unspecified Escherichia coli [E. coli] as the cause of diseases classified elsewhere; E83.42 Hypomagnesemia; R74.0 Nonspecific elevation of levels of transaminase and lactic acid dehydrogenase [LDH]; R29.709 NIHSS score 9; Z95.1 Presence of aortocoronary bypass graft; I11.0 Hypertensive heart disease with heart failure; R41.82 Altered mental status, unspecified
CPT/HCPCS: 36415; 36600; 70450-TC; 71045-TC-FY; 71250-TC; 72125-TC; 72126-TC; 72129-TC; 72132-TC; 72170-TC-FY; 74176-TC; 76705-TC; 80048; 80053; 80076; 80162; 81003; 82248; 82550; 82803; 82962; 82977; 83605; 83615; 83735; 83880; 84100; 84436; 84443; 84484; 85025; 85027; 85610; 85651; 85730; 86140; 86704; 86706; 86707; 86708; 86709; 86803; 87040; 87077; 87086; 87186; 87340; 87804; 93005; 93010; 93306-TC; 93312; 93325; 97116-GP; 97161-GP; 99284-25; G0480; J0131; J0878; J1644; J7030; Q9967